=== PATIENT | female | born 1970 | race Caucasian/White ===

== ENCOUNTER 2023-06-26 21:29 | Outpatient (REF) | payer BC, SELFPAY ==
[2023-06-30 05:07] LABS: Age Gdln ACOG Testing Note (.); HPV Aptima Negative (Negative); IGP, Aptima HPV, rfx 16/18,45 Note (.)
== END 2023-06-26 21:30 | disposition home or self-care (01) ==
LOC: LAB 21:29
PROVIDERS: PCP Family Medicine; Visit Provider Obstetrics & Gynecology
DX: Z01.419 Encounter for gynecological examination (general) (routine) without abnormal findings (principal)
CPT/HCPCS: 87624; G0145

== ENCOUNTER 2023-06-29 14:53 | Outpatient (OUT) | payer BC, SELFPAY ==
--- OUTSIDE RECORDS SUMMARY | 2023-06-29 14:56 | XMS_ITS | CCD ---
Author Name Unknown Address [address] [place] [address] [id number] [place] [address] Organization [facility] Care Team Providers Care Adzing And Boring Machine Helper Name Role Phone PIPPA ., DR WILSON Admitting Unavailabl e KARASIK ., DR WILSON Consulting Unavailabl e KARASIK ., DR WILSON Attending Unavailabl e LEAHY, DR GABRIEL Pickard Primary Care Unavailable WEST, DR TYLOR Whitney Consulting Unavailable LEAHY, DR GABRIEL Pickard Consulting Unavailable LEAHY, DR GABRIEL Pickard Attending Unavailable LEAHY, DR GABRIEL Pickard Admitting Unavailable LEAHY, DR GABRIEL Pickard Primary Care Unavailable KARASIK ., DR WILSON Admitting Unavailabl e KARASIK ., DR WILSON Consulting Unavailabl e KARASIK ., DR WILSON Attending Unavailabl e LEAHY, DR GABRIEL Pickard Primary Care Unavailable TRISTON WALKER Attending Unavailable Problems Active Problems Problem Classification Problem Date Documented Da te Episodic/Chronic Other screening for suspected conditions (not mental disorders or infectious disease) (8 sources) Encounter for screening mammogram for malignant neoplasm of breast; Translations: [Encounter for screening for malignant neoplasm of cervix] Onset: 06-23-2022 Episodic Residual codes; unclassified (1 source) Family history of malignant neoplasm of breast; Translations: [FAMILY HX MALIG NEOPLASM OF BREAST] Onset: 11-16-2022 Episodic Residual codes; unclassified (1 source) Family history of malignant neoplasm of digestive organs; Translations: [FAM HX MALIG NEOPLASM DIGESTIV ORGN] Onset: 11-16-2022 Episodic Past or Other Problems Problem Classification Problem Date Documented Date Episodic/Chronic Immunizations and screening for infectious disease (1 source) Encounter for screening for human papillomavirus (HPV); Translations: [ENC SCREENING HUMAN PAPILLOMAVIRUS] Onset: 06-26-2022 Episodic Results Test Name Value Interpretation Reference Range Facility [facility] MAMM SCREEN 3D CHRISTAL CADon 11-11-2022 MG MAMM SCREEN 3D CHRISTAL CAD Patient: ANATOLIY STUART Exam Date: 11/11/2022 : 1970 Gender:F Ordering : DR TRISTON WALKER . Admission #: [id number] Family : Order #: [id number] CLICK HERE TO VIEW EXAM RADIOLOGY REPORT PROCEDURE: MAMMOGRAM SCREENING 3D BILATERAL CAD COMPARISON: MG MAMM SCREEN 3D CHRISTAL CAD, 10/28/2020. MG MAMM SCREEN 3D CHRISTAL CAD, 11/10/2021. INDICATIONS: Screening mammography Calculator Name NCI Breast Cancer Risk Assessment Tool 5 Year Breast Cancer Risk 2.00% Lifetime Breast Cancer Risk 16.60% Personal Breast Cancer No Personal Ovarian Cancer No Treatments None Family Cancers Grandmother-paternal with breast cancer at age 70; Grandmother-maternal with colon/stomach cancer at age 60; Mother with breast cancer at age 68. LOCATION: [facility] BREAST COMPOSITION: Extremely dense, which lowers the sensitivity of mammography. FINDINGS: DIAGNOSTIC CATEGORY 2--BENIGN FINDING. NO CHANGE FROM COMPARISON. Scattered benign-appearing nodules are present. Scattered benign-appearing calcifications are present. Scattered benign-appearing lymph nodes are present. RIGHT BREAST: No significant suspicious finding. LEFT BREAST: No significant suspicious finding. RECOMMENDATIONS: ROUTINE MAMMOGRAM AND CLINICAL EVALUATION IN 12 MONTHS. PLEASE NOTE: A NORMAL MAMMOGRAM DOES NOT EXCLUDE THE POSSIBILITY OF BREAST CANCER. A CLINICALLY SUSPICIOUS PALPABLE LUMP SHOULD BE BIOPSIED. Dictated by: Tylor Andrade MD on 11/11/2022 at 13:39 Approved by: Tylor Andrade MD on 11/11/2022 at 13:58 Normal [facility] CBC AUTO DIFFon 11-01-2022 BASO # 0.1 103/ul Normal 0.0-0.1 [facility] Comment on above: Performed By: #### C BC #### [facility] [address] [address] [address] Edelmira Hirsch Basophils/100 WBC (Bld) 1.0 % Normal 0.2-2.0 [facility] Comment on above: Performed By: #### C BC #### [facility] [address] [address] [address] Edelmira Hirsch EO # 1.0 103/ul Critically high 0.0-0.7 [facility] Comment on above: Performed By: #### C BC #### [facility] [address] [place] [address] Dr. Edelmira Hirsch Eosinophils/100 WBC (Bld) 13.9 % Critically high 0.9-7.0 [facility] Comment on above: Performed By: #### C BC #### [facility] [address] [place] [address] Dr. Edelmira Hirsch Erythrocyte distribution width (RBC) [Ratio] 12.2 % Normal 11.0-15.0 [facility] Comment on above: Performed By: #### C BC #### [facility] [address] [place] [address] Dr. Edelmira Hirsch Hematocrit (Bld) [Volume fraction] 40.5 % Normal 36.0-48.0 [facility] Comment on above: Performed By: #### C BC #### [facility] [address] [place] [address] Dr. Edelmira Hirsch Hemoglobin (Bld) [Mass/Vol] 13.8 g/dL Normal 12.0-16.0 [facility] Comment on above: Performed By: #### C BC #### [facility] [address] [place] [address] Dr. Edelmira Hirsch IG # 0.02 10e3/ul Normal 0.00-0.03 [facility] Comment on above: Performed By: #### C BC #### [facility] [address] [place] [address] Dr. Edelmira Hirsch IG % 0.3 % Normal 0.0-0.5 [facility] Comment on above: Performed By: #### C BC #### [facility] [address] [place] [address] Dr. Edelmira Hirsch LYMPH # 1.8 103/ul Normal 1.2-3.8 [facility] Comment on above: Performed By: #### C BC #### [facility] [address] [place] [address] Dr. Edelmira Hirsch Lymphocytes/100 WBC (Bld) 24.6 % Normal 20.5-60.0 [facility] Comment on above: Performed By: #### C BC #### [facility] [address] [place] [address] Dr. Edelmira Hirsch MANUAL DIFF REQ NO Normal [facility] Comment on above: Performed By: #### C BC #### [facility] [address] [place] [address] Dr. Edelmira Hirsch MCH (RBC) [Entitic mass] 32.2 pg Normal 26.7-34.0 [facility] Comment on above: Performed By: #### C BC #### [facility] [address] [place] [address] Dr. Edelmira Hirsch MCHC (RBC) [Mass/Vol] 34.1 g/dL Normal 29.9-35.2 [facility] Comment on above: Performed By: #### C BC #### [facility] [address] [place] [address] Dr. Edelmira Hirsch MCV (RBC) [Entitic vol] 94.6 fL Normal 81.0-99.0 [facility] Comment on above: Performed By: #### C BC #### [facility] [address] [place] [address] Dr. Edelmira Hirsch MONO # 0.5 103/ul Normal 0.3-0.8 [facility] Comment on above: Performed By: #### C BC #### [facility] [address] [place] [address] Dr. Edelmira Hirsch Monocytes/100 WBC (Bld) 6.5 % Normal 1.7-12.0 [facility] Comment on above: Performed By: #### C BC #### [facility] [address] [place] [address] Dr. Edelmira Hirsch NEUT # 3.8 103/ul Normal 1.4-6.5 [facility] Comment on above: Performed By: #### C BC #### [facility] [address] [place] [address] Dr. Edelmira Hirsch Neutrophils/100 WBC (Bld) 53.7 % Normal 43.0-75.0 [facility] Comment on above: Performed By: #### C BC #### [facility] [address] [address] [address] Edelmira Hirsch Platelet mean volume (Bld) [Entitic vol] 10.0 fL Normal 9.5-13.5 [facility] Comment on above: Performed By: #### C BC #### [facility] [address] [address] [address] Edelmira Hirsch PLT 276 103/ul Normal 150-450 [facility] Comment on above: Performed By: #### C BC #### [facility] [address] [address] [address] Edelmira Hirsch RBC 4.28 106/ul Normal 4.20-5.40 [facility] Comment on above: Performed By: #### C BC #### [facility] [address] [place] [address] Dr. Edelmira Hirsch WBC 7.1 103/ul Normal 4.0-11.0 [facility] Comment on above: Performed By: #### C BC #### [facility] [address] [place] [address] Dr. Edelmira Hirsch GLYCOHEMOGLOBIN A1Con 2022 ADA RECOMMENDATION SEE BELOW Normal [facility] Comment on above: Result Comment: ADA RECOMMENDED LIMIT 4.0 - 6.0 ADA THERAPEUTIC TARGET < 7.0 ACTION SUGGESTED > 7.0 Performed By: #### A 1C #### [facility] [address] [place] [address] Dr. Edelmira Hirsch Glucose [Mass/Vol] 100 mg/dL Normal [facility] Comment on above: Performed By: #### A 1C #### [facility] [address] [place] [address] Dr. Edelmira Hirsch HbA1c (Bld) [Mass fraction] 5.1 % Normal 4.5-6.2 [facility] Comment on above: Performed By: #### A 1C #### [facility] [address] [place] [address] Dr. Edelmira Hirsch LIPID PROFILEon 11-01-2022 CHOL-HDL RATIO NORM SEE BELOW Normal [facility] Comment on above: Result Comment: 3.3 - 4.4 LOW RISK 4.4 - 7.1 AVERAGE RISK 7.1 - 11.0 MODERATE RISK >11.0 HIGH RISK Performed By: #### L IPID, CMP, TSH #### [facility] [address] [address] [address] Edelmira Hirsch Cholesterol [Mass/Vol] 164 mg/dL Normal <=200 [facility] Comment on above: Performed By: #### L IPID, CMP, TSH #### [facility] [address] [address] [address] Edelmira Hirsch Cholesterol in HDL [Mass/Vol] 80 mg/dL Critically high 40-60 [facility] Comment on above: Performed By: #### L IPID, CMP, TSH #### [facility] [address] [address] [address] Edelmira Hirsch Cholesterol in LDL [Mass/Vol] 76.8 mg/dL Normal [facility] Comment on above: Performed By: #### L IPID, CMP, TSH #### [facility] [address] [address] [address] Edelmira Hirsch Cholesterol.total/Ch olesterol in HDL [Mass ratio] 2.1 {ratio} Normal [facility] Comment on above: Performed By: #### L IPID, CMP, TSH #### [facility] [address] [place] [address] Dr. Edelmira Hirsch HDL NORMAL > or = 60 mg/dl - LO W CARDIOVASCULAR RISK <40 mg/dl - HIGH CARDIOVASCULAR RISK Normal [facility] Comment on above: Performed By: #### L IPID, CMP, TSH #### [facility] [address] [address] [address] Edelmira Hirsch LDL CALC NORMAL SEE BELOW Normal [facility] Comment on above: Result Comment: <100 mg/dl OPTIMAL 100 - 129 mg/dl NEAR OR ABOVE OPTIMAL 130 - 159 mg/dl BORDERLINE HIGH 160 - 189 mg/dl HIGH >190 mg/dl VERY HIGH Performed By: #### L IPID, CMP, TSH #### [facility] [address] [address] [address] Edelmira Hirsch Triglyceride [Mass/Vol] 36 mg/dL Normal <=150 [facility] Comment on above: Performed By: #### L IPID, CMP, TSH #### [facility] [address] [address] [address] Edelmira Hirsch VLDL CALC 7.2 mg/dL Normal [facility] Comment on above: Performed By: #### L IPID, CMP, TSH #### [facility] [address] [address] [address] Edelmira Hirsch PROF 14(COMP METB)on 023 Albumin [Mass/Vol] 3.5 g/dL Normal 3.4-5.0 [facility] Comment on above: Performed By: #### L IPID, CMP, TSH #### [facility] [address] [place] [address] Dr. Edelmira Hirsch Albumin/Globulin [Mass ratio] 0.9 {ratio} Normal [facility] Comment on above: Performed By: #### L IPID, CMP, TSH #### [facility] [address] [place] [address] Dr. Edelmira Hirsch ALP [Catalytic activity/Vol] 51 U/L Normal 46-116 [facility] Comment on above: Performed By: #### L IPID, CMP, TSH #### [facility] [address] [place] [address] Dr. Edelmira Hirsch ALT [Catalytic activity/Vol] 23 U/L Normal 14-59 [facility] Comment on above: Performed By: #### L IPID, CMP, TSH #### [facility] [address] [address] [address] Edelmira Hirsch Anion gap [Moles/Vol] 11.2 mmol/L Normal [facility] Comment on above: Performed By: #### L IPID, CMP, TSH #### [facility] [address] [place] [address] Dr. Edelmira Hirsch AST [Catalytic activity/Vol] 18 U/L Normal 15-37 [facility] Comment on above: Performed By: #### L IPID, CMP, TSH #### [facility] [address] [place] [address] Dr. Edelmira Hirsch Bilirubin [Mass/Vol] 0.9 mg/dL Normal 0.2-1.0 [facility] Comment on above: Performed By: #### L IPID, CMP, TSH #### [facility] [address] [place] [address] Dr. Edelmira Hirsch Calcium [Mass/Vol] 9.4 mg/dL Normal 8.5-10.1 [facility] Comment on above: Performed By: #### L IPID, CMP, TSH #### [facility] [address] [address] [address] Edelmira Hirsch Chloride [Moles/Vol] 104 mmol/L Normal 98-107 [facility] Comment on above: Performed By: #### L IPID, CMP, TSH #### [facility] [address] [place] [address] Dr. Edelmira Hirsch CO2 [Moles/Vol] 29.5 mmol/L Normal 21.0-32.0 [facility] Comment on above: Performed By: #### L IPID, CMP, TSH #### [facility] [address] [place] [address] Dr. Edelmira Hirsch Creatinine [Mass/Vol] 0.86 mg/dL Normal 0.55-1.02 [facility] Comment on above: Performed By: #### L IPID, CMP, TSH #### [facility] [address] [place] [address] Dr. Edelmira Hirsch EGFR-AF KOSOVAN >60 Normal >=60 [facility] Comment on above: Performed By: #### L IPID, CMP, TSH #### [facility] [address] [place] [address] Dr. Edelmira Hirsch EGFR-NON AF KOSOVAN >60 Normal >=60 [facility] Comment on above: Performed By: #### L IPID, CMP, TSH #### [facility] [address] [place] [address] Dr. Edelmira Hirsch Globulin (S) [Mass/Vol] 3.7 g/dL Normal [facility] Comment on above: Performed By: #### L IPID, CMP, TSH #### [facility] [address] [address] [address] Edelmira Hirsch Glucose [Mass/Vol] 97 mg/dL Normal 74-106 [facility] Comment on above: Performed By: #### L IPID, CMP, TSH #### [facility] [address] [address] [address] Edelmira Hirsch Potassium [Moles/Vol] 4.7 mmol/L Normal 3.5-5.1 [facility] Comment on above: Performed By: #### L IPID, CMP, TSH #### [facility] [address] [address] [address] Edelmira Hirsch Protein [Mass/Vol] 7.2 g/dL Normal 6.4-8.2 [facility] Comment on above: Performed By: #### L IPID, CMP, TSH #### [facility] [address] [address] [address] Edelmira Hirsch Sodium [Moles/Vol] 140 mmol/L Normal 136-145 [facility] Comment on above: Performed By: #### L IPID, CMP, TSH #### [facility] [address] [address] [address] Edelmira Hirsch Urea nitrogen [Mass/Vol] 14.0 mg/dL Normal 7.0-18.0 [facility] Comment on above: Performed By: #### L IPID, CMP, TSH #### [facility] [address] [address] [address] Edelmira Hirsch Urea nitrogen/Creatinine [Mass ratio] 16.3 mg/mg Normal [facility] Comment on above: Performed By: #### L IPID, CMP, TSH #### [facility] [address] [address] [address] Edelmira Hirsch TSHon 11-01-2022 TSH 2.540 uIU/mL Normal 0.358-3.740 [facility] Comment on above: Performed By: #### L IPID, CMP, TSH #### [facility] [address] [address] [address] Edelmira Hirsch PAP ACOG PANEL 2: 30 to 65on 06-27-2022 . . Normal [facility] Comment on above: Result Comment: Perf ormed at: WB Performed By: #### 4 [id number] #### [facility] [address] [place] [address] Dr. Edelmira Hirsch Age Gdln ACOG Testing 30-65 [facility] Comment on above: Performed By: #### 4 [id number] #### [facility] [address] [address] [address] Edelmira Hirsch DIAGNOSIS: Comment Normal [facility] Comment on above: Result Comment: NEGA TIVE FOR INTRAEPITHELIAL LESION OR MALIGNANCY. Performed at: WB Performed By: #### 4 [id number] #### [facility] [address] [place] [address] Dr. Edelmira Hirsch HPV Aptima Negative Normal Negative [facility] Comment on above: Result Comment: This nucleic acid amplification test detects fourteen high-risk HPV types (16,18,31,33,35,39,45,51,52,56,58,59,66,68) without differentiation. Performed at: =G Performed By: #### 4 [id number] #### [facility] [address] [place] [address] Dr. Edelmira Hirsch HPV Genotype Reflex Comment Normal [facility] Comment on above: Result Comment: Crit eria not met, HPV Genotype not performed. Performed at: WB Performed By: #### 4 [id number] #### [facility] [address] [place] [address] Dr. Edelmira Hirsch Methodology: Comment [facility] Comment on above: Result Comment: This liquid based ThinPrep(R) pap test was screened with the use of an image guided system. Performed at: WB Performed By: #### 4 [id number] #### [facility] [address] [place] [address] Dr. Edelmira Hirsch Note: Comment [facility] Comment on above: Result Comment: The Pap smear is a screening test designed to aid in the detection of premalignant and malignant conditions of the uterine cervix. It is not a diagnostic procedure and should not be used as the sole means of detecting cervical cancer. Both false-positive and false-negative reports do occur. . Performed at: WB Performed By: #### 4 [id number] #### [facility] [address] [place] [address] Dr. Edelmira Hirsch Performed by: Comment Normal [facility] Comment on above: Result Comment: Aury Andrade, Infectious Waste Technician (ASCP) Performed at: WB Performed By: #### 4 [id number] #### [facility] [address] [place] [address] Dr. Edelmira Hirsch Specimen adequacy: Comment Normal [facility] Comment on above: Result Comment: Sati sfactory for evaluation. Endocervical and/or squamous metaplastic cells (endocervical component) are present. Performed at: WB Performed By: #### 4 [id number] #### [facility] [address] [place] [address] Dr. Edelmira Hirsch Nicotine and Metabolite, Harlan nt LCon 04-04-2021 Cotinine LC <1.0 Invalid Interpretation [facility] Comment on above: Result Comment: This test was developed and its performance characteristics determined by [employer]. It has not been cleared or approved by the Food and Drug Administration. Cotinine levels greater than 20.0 are consistent with the use of tobacco or tobacco cessation products. Performed At: [address] [id number] Speedy Rodriguez MD Ph:[phone] Performed By: #### 1 [id number], [id number], [id number], [id number], [id number], [id number] #### [facility] (DEFAULT) [address] [place] [id number] Nicotine LC <1.0 Invalid Interpretation [facility] Comment on above: Result Comment: This test was developed and its performance characteristics determined by [facility]. It has not been cleared or approved by the Food and Drug Administration. Nicotine levels greater than 2.0 are consistent with the use of tobacco or tobacco cessation products. Performed By: #### 1 [id number], [id number], [id number], [id number], [id number], [id number] #### [facility] (DEFAULT) [address] [place] [address] .Auto Diff 1on 03-30-2021 Auto [place] % 7 % Normal 06-30 [facility] Comment on above: Performed By: #### 1 [id number], [id number], [id number], [id number], [id number], [id number] #### [facility] ([facility]) [address] [place] [address] Baso Abs# 0.0 x10 Normal 0.0-0.2 [facility] Comment on above: Performed By: #### 1 [id number], [id number], [id number], [id number], [id number], [id number] #### [facility] (DEFAULT) [address] [place] [address] Basophils/100 WBC (Bld) 0.4 % Normal 0.2-2.0 [facility] Comment on above: Performed By: #### 1 [id number], [id number], [id number], [id number], [id number], [id number] #### [facility] ([facility]) [address] [place] [address] Eos Abs# 1.0 x10 High 0.0-0.4 [facility] Comment on above: Performed By: #### 1 [id number], [id number], [id number], [id number], [id number], [id number] #### [facility] ([facility]) [address] [place] [address] Eosinophils/100 WBC (Bld) 13.5 % High 0.9-4.0 [facility] Comment on above: Performed By: #### 1 [id number], [id number], [id number], [id number], [id number], [id number] #### [facility] ([facility]) [address] [place] [address] Lymph Abs# 2.1 x10 Normal 1.3-2.9 [facility] Comment on above: Performed By: #### 1 [id number], [id number], [id number], [id number], [id number], [id number] #### [facility] ([facility]) [address] [place] [address] Lymphocytes/100 WBC (Bld) 29 % Normal 14-48 [facility] Comment on above: Performed By: #### 1 [id number], [id number], [id number], [id number], [id number], [id number] #### [facility] ([facility]) [address] [place] [address] [place] Abs# 0.5 x10 Normal 0.0-0.8 [facility] Comment on above: Performed By: #### 1 [id number], [id number], [id number], [id number], [id number], [id number] #### [facility] ([facility]) [address] [place] [address] Neut Abs# 3.5 x10 Normal 1.5-9.2 [facility] Comment on above: Performed By: #### 1 [id number], [id number], [id number], [id number], [id number], [id number] #### [facility] ([facility]) [address] [place] [address] Neutrophils/100 WBC (Bld) 50 % Normal 44-88 [facility] Comment on above: Performed By: #### 1 [id number], [id number], [id number], [id number], [id number], [id number] #### [facility] ([facility]) [address] [place] [address] CBC w/ Auto Diffon Erythrocyte distribution width (RBC) [Ratio] 13.2 % Normal 11.5-15.0 [facility] Comment on above: Performed By: #### 1 [id number], [id number], [id number], [id number], [id number], [id number] #### [facility] ([facility]) [address] [place] [address] Hematocrit (Bld) [Volume fraction] 38.4 % Normal 33.7-40.4 [facility] Comment on above: Performed By: #### 1 [id number], [id number], 4288506398, 6350767828, 68742461, 0115409 #### [facility] (DEFAULT) [address] [place] [address] Hemoglobin (Bld) [Mass/Vol] 12.4 g/dL Normal 11.3-15.9 [facility] Comment on above: Performed By: #### 1 1271897, 5124268006, 3894531966, 3587982477, 36372797, 8414802 #### [facility] (DEFAULT) [address] [place] [address] Instr WBC 7.1 x10 Invalid Interpretation Code [facility] Comment on above: Performed By: #### 1 6363521, 7356904423, 1718865026, 4100905719, 81569241, 2750878 #### [facility] (DEFAULT) [address] [place] [address] Man Diff? Auto Normal [facility] Comment on above: Performed By: #### 1 6936446, 7353984801, 4936184171, 7148884231, 32637124, 6696779 #### [facility] (DEFAULT) [address] [place] [address] 79015 MCH (RBC) [Entitic mass] 30 pg Normal 24-34 [facility] Comment on above: Performed By: #### 1 0562656, 1413058493, 0081598595, 4902216377, 94858490, 5411086 #### [facility] (DEFAULT) [address] [place] [address] 13516 MCHC (RBC) [Mass/Vol] 32 g/dL Normal 26-37 [facility] Comment on above: Performed By: #### 1 9895826, 7847469810, 3958826661, 2457079956, 48869684, 4814447 #### [facility] (DEFAULT) [address] [place] [address] 79256 MCV (RBC) [Entitic vol] 94 fL Normal 81-100 [facility] Comment on above: Performed By: #### 1 2224877, 2919583448, 2380052257, 5431356157, 76945792, 2927704 #### [facility] (DEFAULT) [address] [place] [address] 59605 Platelet 265 x10 Normal 138-427 [facility] Comment on above: Performed By: #### 1 1486481, 4168750228, 7616408829, 3071973469, 63185402, 4959657 #### [facility] (DEFAULT) [address] [place] [address] Platelet mean volume (Bld) [Entitic vol] 10.3 fL High 6.3-10.2 [facility] Comment on above: Performed By: #### 1 1251751, 7697240676, 1432080647, 9977822550, 52191738, 1691353 #### [facility] (DEFAULT) [address] [place] [address] RBC 4.10 x10 Normal 3.70-5.30 [facility] Comment on above: Performed By: #### 1 1659363, 9467534749, 6087654806, 5646434370, 73118618, 6251203 #### [facility] (DEFAULT) [address] [place] [address] WBC 7.1 x10 Normal 3.5-10.5 [facility] Comment on above: Performed By: #### 1 0074555, 5081093830, 1530310423, 6909422482, 90827246, 2658036 #### [facility] (DEFAULT) [address] [place] [address] Standardon 03-30-2021 eGFR Non AA >60 Invalid Interpretation Code [facility] Comment on above: Performed By: #### 1 0409950, 7070203368, 3781529386, 5811502596, 90880629, 7309070 #### [facility] (DEFAULT) [address] [place] [address] eGFR AA >60 Invalid Interpretation Code [facility] Comment on above: Result Comment: Conformal Pad Former roddy Kidney disease could be indicated at eGFRs of less than 60 ml/min/1.73m2. Kidney Failure is indicated at less than 15 ml/min/1.73m2 Performed By: #### 1 1540464, 0342123958, 4280715991, 5752057499, 83903029, 5516500 #### [facility] (DEFAULT) [address] [place] [address] Albumin [Mass/Vol] 3.6 g/dL Normal 3.5-5.0 [facility] Comment on above: Performed By: #### 1 1501280, 0230243029, 1417505768, 4656451870, 77843613, 9671602 #### [facility] (DEFAULT) [address] [place] [address] Albumin/Globulin [Mass ratio] 1.1 {ratio} Low 1.4-2.6 [facility] Comment on above: Performed By: #### 1 8052707, 0261813846, 7955340960, 5833051687, 42826501, 2209324 #### [facility] (DEFAULT) [address] [place] [address] Alk Phos 61 IU/L Normal 32-91 [facility] Comment on above: Performed By: #### 1 2259953, 7765225118, 2766696065, 4480697732, 79033915, 9710392 #### [facility] (DEFAULT) [address] [place] [address] ALT [Catalytic activity/Vol] 14.0 U/L Normal 14.0-54.0 [facility] Comment on above: Performed By: #### 1 1074128, 7362280742, 7189856452, 2789797749, 80557995, 2353088 #### [facility] (DEFAULT) [address] [place] [address] 59852 Anion gap [Moles/Vol] 9.0 mmol/L Normal 5.0-19.0 [facility] Comment on above: Performed By: #### 1 3856866, 6910871079, 1085753189, 1385880675, 67900253, 9821650 #### [facility] (DEFAULT) [address] [place] [address] AST [Catalytic activity/Vol] 21 U/L Normal 15-41 [facility] Comment on above: Performed By: #### 1 3035041, 2717568575, 0229906982, 5880210404, 79132398, 1937996 #### [facility] (DEFAULT) [address] [place] [address] 37213 Bili Total 0.9 mg/dL Normal 0.3-1.2 [facility] Comment on above: Performed By: #### 1 3903694, 1661455170, 3078085810, 6482809614, 65536482, 6445919 #### [facility] (DEFAULT) [address] [place] [address] 52976 Calcium [Mass/Vol] 8.6 mg/dL Low 8.9-10.3 [facility] Comment on above: Performed By: #### 1 3427148, 3263438153, 4461203058, 2197915411, 62780421, 9326705 #### [facility] (DEFAULT) [address] [place] [address] 99838 Chloride [Moles/Vol] 103 mmol/L Normal 101-111 [facility] Comment on above: Performed By: #### 1 3150509, 0773185248, 5778607906, 7370627078, 42701351, 6247197 #### [facility] (DEFAULT) [address] [place] [address] 24366 CO2 [Moles/Vol] 27 mmol/L Normal 21-32 [facility] Comment on above: Performed By: #### 1 6620633, 4623474245, 2168174552, 0377823690, 66538770, 4194547 #### [facility] (DEFAULT) [address] [place] [address] 15155 Creatinine [Mass/Vol] 0.81 mg/dL Normal 0.60-1.30 [facility] Comment on above: Performed By: #### 1 2660710, 0534939178, 0693108308, 1347744888, 25720914, 6111638 #### [facility] (DEFAULT) [address] [place] [address] 86345 Globulin (S) [Mass/Vol] 3.4 g/dL Normal 1.5-4.3 [facility] Comment on above: Performed By: #### 1 3444217, 9870107168, 4038095288, 3780723696, 62813952, 7668660 #### [facility] (DEFAULT) [address] [place] [address] 31994 Glucose [Mass/Vol] 89.0 mg/dL Normal 74.0-118.0 [facility] Comment on above: Performed By: #### 1 0992811, 8318185892, 9246544589, 0638368180, 79284998, 4398688 #### [facility] (DEFAULT) [address] [place] [address] 93200 Osmolality 269 mOsm/L Invalid Interpretation Code [facility] Comment on above: Performed By: #### 1 1825800, 4943222820, 9879620328, 8228439786, 07817075, 6848420 #### [facility] (DEFAULT) [address] [place] [address] 26786 Potassium [Moles/Vol] 4.0 mmol/L Normal 3.6-5.1 [facility] Comment on above: Performed By: #### 1 9418236, 8171298586, 5933243155, 1549384283, 62875488, 0838797 #### [facility] (DEFAULT) [address] [place] [address] 11033 Protein [Mass/Vol] 7.0 g/dL Normal 6.5-8.1 [facility] Comment on above: Performed By: #### 1 9069962, 2972501385, 8214639828, 6507163865, 34469364, 2149260 #### [facility] (DEFAULT) [address] [place] [address] 83595 Sodium [Moles/Vol] 135.0 mmol/L Low 136.0-144.0 [facility] Comment on above: Performed By: #### 1 3494361, 8029620327, 9042544305, 3008133734, 78430649, 7693048 #### [facility] (DEFAULT) [address] [place] [address] Urea nitrogen [Mass/Vol] 12 mg/dL Normal 8-26 [facility] Comment on above: Performed By: #### 1 0706454, 6170142666, 8729208566, 0525137136, 92783626, 3002105 #### [facility] (DEFAULT) [address] [place] [address] Urea nitrogen/Creatinine [Mass ratio] 15.0 mg/mg Normal 4.6-16.2 [facility] Comment on above: Performed By: #### 1 9646287, 9261546173, 5645218308, 7741589774, 19142200, 6737933 #### [facility] (DEFAULT) [address] [place] [address] HgbA1c Standardon 03-30-2021 .Hb 14.4 Invalid Interpretation Code [facility] Comment on above: Performed By: #### 1 8086854, 6892660747, 5855516092, 8932819312, 62916928, 1755217 #### [facility] (DEFAULT) [address] [place] [address] .Hgb A1c 0.48 g/dL Invalid Interpretation Code [facility] Comment on above: Performed By: #### 1 1807043, 6570792686, 8307055734, 4152316142, 53497356, 3676112 #### [facility] (DEFAULT) [address] [place] [address] Glucose [Mass/Vol] 103 mg/dL Invalid Interpretation Code [facility] Comment on above: Performed By: #### 1 0643625, 1405618709, 7383591616, 0153807337, 29515953, 1834904 #### [facility] (DEFAULT) [address] [place] [address] HbA1c (Bld) [Mass fraction] 5.2 % Normal 4.6-6.2 [facility] Comment on above: Performed By: #### 1 3558407, 9150017754, 1961485295, 7700382078, 19725834, 7234398 #### [facility] (DEFAULT) [address] [place] [address] 50324 Lipid Panel Standardon 03-30 Cholesterol [Mass/Vol] 171.0 mg/dL Normal 66.0-200.0 [facility] Comment on above: Result Comment: Rosalind rable - Less than 200 mg/dL Borderline high risk - 200-239 mg/dL High risk - 240 mg/dL and over. Performed By: #### 1 4518933, 2107375441, 4179367019, 4642380333, 59205113, 7433578 #### [facility] (DEFAULT) [address] [place] [address] 66277 Cholesterol in HDL [Mass/Vol] 64 mg/dL Normal 40-71 [facility] Comment on above: Result Comment: High risk - <40 mg/dL. Performed By: #### 1 8235593, 8914515245, 1914168014, 8445897648, 25395303, 6887380 #### [facility] (DEFAULT) [address] [place] [address] 11455 Cholesterol in LDL [Mass/Vol] 93 mg/dL Normal 1-100 [facility] Comment on above: Result Comment: Opti mal - Less than 100 mg/dL Borderline high risk - 130-159 mg/dL High risk - 160-189 mg/dL. Performed By: #### 1 0315935, 5443215446, 0595423503, 8568705744, 78716533, 7425021 #### [facility] (DEFAULT) [address] [place] [address] 82623 Cholesterol.total/Ch olesterol in HDL [Mass ratio] 2.7 {ratio} Normal 0.0-4.5 [facility] Comment on above: Performed By: #### 1 3841709, 7905959919, 9868068338, 3382068691, 86539441, 3480755 #### [facility] (DEFAULT) [address] [place] [address] 10224 Triglyceride [Mass/Vol] 73.0 mg/dL Normal 0.0-150.0 [facility] Comment on above: Performed By: #### 1 9209909, 6789518101, 8822219663, 2067009715, 33437218, 5026073 #### [facility] (DEFAULT) [address] [place] [address] VLDL. 15 mg/dL Normal 5-40 [facility] Comment on above: Performed By: #### 1 7249338, 2117701715, 4641774832, 1490401587, 09322784, 7592207 #### [facility] (DEFAULT) [address] [place] [address] 28484 Nicotine and Metabolite, Harlan nt LCon 04-20-2020 Cotinine LC <1.0 Invalid Interpretation Code [facility] Comment on above: Result Comment: This test was developed and its performance characteristics determined by [employer]. It has not been cleared or approved by the Food and Drug Administration. Cotinine levels greater than 20.0 are consistent with the use of tobacco or tobacco cessation products. Performed At: [address] [id number] Speedy Rodriguez MD Ph:[phone] Performed By: #### 1 4300729, 6152286002, 0445386990, 0487882447, 21982227, 6050976 #### [facility] (DEFAULT) [address] [place] [address] Nicotine LC <1.0 Invalid Interpretation Code [facility] Comment on above: Result Comment: This test was developed and its performance characteristics determined by [facility]. It has not been cleared or approved by the Food and Drug Administration. Nicotine levels greater than 2.0 are consistent with the use of tobacco or tobacco cessation products. Performed By: #### 1 1230520, 3894954881, 8404867921, 0212304763, 18806627, 4898879 #### [facility] (DEFAULT) [address] [place] [address] 42113 .Auto Diff 104-10-2020 Auto [place] % 8 % Normal 1-12 [facility] Comment on above: Performed By: #### 7 825043, 80423562, 2669445637, 3033672274, 5728584420, 32219104 #### [facility] (DEFAULT) [address] [place] [address] 49013 Baso Abs# 0.0 x10 Normal 0.0-0.2 [facility] Comment on above: Performed By: #### 7 447301, 68791909, 6086029982, 4698621810, 3739999172, 59629331 #### [facility] (DEFAULT) [address] [place] [address] 73326 Basophils/100 WBC (Bld) 0.6 % Normal 0.2-2.0 [facility] Comment on above: Performed By: #### 7 443469, 78293508, 8038580473, 6755805792, 3890161541, 97307981 #### [facility] (DEFAULT) [address] [place] [address] Eos Abs# 0.7 x10 High 0.0-0.4 [facility] Comment on above: Performed By: #### 7 450884, 56125389, 1113753409, 1138312476, 2349344321, 53831186 #### [facility] (DEFAULT) [address] [place] [address] 46795 Eosinophils/100 WBC (Bld) 13.1 % High 0.9-4.0 [facility] Comment on above: Performed By: #### 7 481597, 50423752, 4648689505, 2102254733, 3908329022, 81687871 #### [facility] (DEFAULT) [address] [place] [address] 07523 Lymph Abs# 1.8 x10 Normal 1.3-2.9 [facility] Comment on above: Performed By: #### 7 008358, 84856051, 6683941034, 0782035406, 8300017180, 94062881 #### [facility] (DEFAULT) [address] [place] [address] 72856 Lymphocytes/100 WBC (Bld) 33 % Normal 14-48 [facility] Comment on above: Performed By: #### 7 615018, 31019036, 4339309379, 2342529721, 1539313003, 56956438 #### [facility] (DEFAULT) [address] [place] [address] [place] Abs# 0.4 x10 Normal 0.0-0.8 [facility] Comment on above: Performed By: #### 7 824493, 17769383, 5563209759, 2063605902, 7111853016, 35371264 #### [facility] (DEFAULT) [address] [place] [address] Neut Abs# 2.4 x10 Normal 1.5-9.2 [facility] Comment on above: Performed By: #### 7 372242, 66172280, 3533964652, 3880153341, 3935323924, 12972105 #### [facility] (DEFAULT) [address] [place] [address] Neutrophils/100 WBC (Bld) 45 % Normal 44-88 [facility] Comment on above: Performed By: #### 7 235189, 98281213, 7272532365, 2519945507, 8327162215, 69552567 #### [facility] (DEFAULT) [address] [place] [address] CBC w/ Auto Diffon 0 Erythrocyte distribution width (RBC) [Ratio] 13.4 % Normal 11.5-15.0 [facility] Comment on above: Performed By: #### 7 389657, 43777002, 2235391336, 8588705635, 7273154159, 63478158 #### [facility] (DEFAULT) [address] [place] [address] Hematocrit (Bld) [Volume fraction] 38.4 % Normal 33.7-40.4 [facility] Comment on above: Performed By: #### 7 758266, 06990511, 6463539335, 4022831888, 8775360354, 16105820 #### [facility] (DEFAULT) [address] [place] [address] Hemoglobin (Bld) [Mass/Vol] 12.6 g/dL Normal 11.3-15.9 [facility] Comment on above: Performed By: #### 7 725583, 14955780, 5711832185, 6556096252, 6084947872, 14646354 #### [facility] (DEFAULT) [address] [place] [address] 34309 Instr WBC 5.3 x10 Invalid Interpretation Code [facility] Comment on above: Performed By: #### 7 027247, 51171264, 7949867889, 3205692660, 0899640035, 73563623 #### [facility] (DEFAULT) [address] [place] [address] 03483 Man Diff? Auto Normal [facility] Comment on above: Performed By: #### 7 213084, 45816604, 9439548219, 5087096313, 9826762883, 91411000 #### [facility] (DEFAULT) [address] [place] [address] 95139 MCH (RBC) [Entitic mass] 29 pg Normal 24-34 [facility] Comment on above: Performed By: #### 7 072810, 31335320, 8267396322, 1415285657, 2303221363, 02404687 #### [facility] (DEFAULT) [address] [place] [address] 45648 MCHC (RBC) [Mass/Vol] 33 g/dL Normal 26-37 [facility] Comment on above: Performed By: #### 7 998053, 21611488, 4772795943, 2501568567, 9978883655, 77734477 #### [facility] (DEFAULT) [address] [place] [address] 69863 MCV (RBC) [Entitic vol] 89 fL Normal 81-100 [facility] Comment on above: Performed By: #### 7 644039, 12907784, 0488670198, 7060662161, 3366558482, 13072549 #### [facility] (DEFAULT) [address] [place] [address] 37821 Platelet 270 x10 Normal 138-427 [facility] Comment on above: Performed By: #### 7 879114, 15293528, 1865481735, 0571360596, 0822487843, 49307928 #### [facility] (DEFAULT) [address] [place] [address] Platelet mean volume (Bld) [Entitic vol] 10.1 fL Normal 6.3-10.2 [facility] Comment on above: Performed By: #### 7 964233, 79250052, 6332732457, 0414244772, 6768993351, 93333510 #### [facility] (DEFAULT) [address] [place] [address] RBC 4.32 x10 Normal 3.70-5.30 [facility] Comment on above: Performed By: #### 7 711729, 02465634, 2392768267, 1672209097, 1729694695, 56911578 #### [facility] (DEFAULT) [address] [place] [address] WBC 5.3 x10 Normal 3.5-10.5 [facility] Comment on above: Performed By: #### 7 758655, 32166560, 4734295941, 8761741281, 2635641829, 79222675 #### [facility] (DEFAULT) [address] [place] [address] Standard 04-10-2020 eGFR Non AA >60 Invalid Interpretation Code [facility] Comment on above: Performed By: #### 7 879500, 33657547, 1730816566, 1468873567, 1655016384, 63638393 #### [facility] (DEFAULT) [address] [place] [address] eGFR AA >60 Invalid Interpretation Code [facility] Comment on above: Result Comment: Conformal Pad Former roddy Kidney disease could be indicated at eGFRs of less than 60 ml/min/1.73m2. Kidney Failure is indicated at less than 15 ml/min/1.73m2 Performed By: #### 7 801119, 11253485, 6783919301, 8267491080, 2574780642, 66933077 #### [facility] (DEFAULT) [address] [place] [address] Albumin [Mass/Vol] 3.8 g/dL Normal 3.5-5.0 [facility] Comment on above: Performed By: #### 7 840504, 66892212, 0988707200, 0066411546, 1968006915, 88432967 #### [facility] (DEFAULT) [address] [place] [address] Albumin/Globulin [Mass ratio] 1.1 {ratio} Low 1.4-2.6 [facility] Comment on above: Performed By: #### 7 699913, 18749540, 4914655724, 4284001246, 4349209530, 59778559 #### [facility] (DEFAULT) [address] [place] [address] Alk Phos 40 IU/L Normal 32-91 [facility] Comment on above: Performed By: #### 7 223992, 07509113, 5704818898, 3846582256, 7401327397, 62245345 #### [facility] (DEFAULT) [address] [place] [address] ALT [Catalytic activity/Vol] 13.0 U/L Low 14.0-54.0 [facility] Comment on above: Performed By: #### 7 265358, 29490682, 2440488455, 1536611002, 4660373871, 77024616 #### [facility] (DEFAULT) [address] [place] [address] Anion gap [Moles/Vol] 11.0 mmol/L Normal 5.0-19.0 [facility] Comment on above: Performed By: #### 7 252376, 52692741, 7756700079, 0644265611, 6267952961, 86098877 #### [facility] (DEFAULT) [address] [place] [address] 39935 AST [Catalytic activity/Vol] 19 U/L Normal 15-41 [facility] Comment on above: Performed By: #### 7 247685, 66418896, 0648707321, 5081928567, 4943357448, 60353791 #### [facility] (DEFAULT) [address] [place] [address] Bili Total 1.1 mg/dL Normal 0.3-1.2 [facility] Comment on above: Performed By: #### 7 734657, 94602910, 1200774209, 3781417874, 7398968051, 07819390 #### [facility] (DEFAULT) [address] [place] [address] 34724 Calcium [Mass/Vol] 9.1 mg/dL Normal 8.9-10.3 [facility] Comment on above: Performed By: #### 7 122109, 85957211, 1587332077, 1888665709, 1422840968, 03540856 #### [facility] (DEFAULT) [address] [place] [address] 94840 Chloride [Moles/Vol] 107 mmol/L Normal 101-111 [facility] Comment on above: Performed By: #### 7 874126, 11990111, 2360523995, 7364981293, 9781556953, 95472521 #### [facility] (DEFAULT) [address] [place] [address] 56578 CO2 [Moles/Vol] 23 mmol/L Normal 21-32 [facility] Comment on above: Performed By: #### 7 479630, 27961201, 9501111546, 4275290430, 9355146986, 48851601 #### [facility] (DEFAULT) [address] [place] [address] 74679 Creatinine [Mass/Vol] 0.75 mg/dL Normal 0.60-1.30 [facility] Comment on above: Performed By: #### 7 419768, 33584987, 0922168107, 7078631539, 6477966419, 46231532 #### [facility] (DEFAULT) [address] [place] [address] 80981 Globulin (S) [Mass/Vol] 3.4 g/dL Normal 1.5-4.3 [facility] Comment on above: Performed By: #### 7 212604, 56917717, 0442607594, 5763216553, 0564875944, 83713609 #### [facility] (DEFAULT) [address] [place] [address] 81851 Glucose [Mass/Vol] 98.0 mg/dL Normal 74.0-118.0 [facility] Comment on above: Performed By: #### 7 132737, 50123091, 7794282394, 2030578316, 4634108262, 93496751 #### [facility] (DEFAULT) [address] [place] [address] 87452 Osmolality 276 mOsm/L Invalid Interpretation Code [facility] Comment on above: Performed By: #### 7 588616, 53104653, 0182642251, 8530490379, 6757195323, 44324282 #### [facility] (DEFAULT) [address] [place] [address] 46844 Potassium [Moles/Vol] 4.0 mmol/L Normal 3.6-5.1 [facility] Comment on above: Performed By: #### 7 738137, 20402333, 4762269125, 6633648391, 4864111505, 85590999 #### [facility] (DEFAULT) [address] [place] [address] 88882 Protein [Mass/Vol] 7.2 g/dL Normal 6.5-8.1 [facility] Comment on above: Performed By: #### 7 [id number], [id number], [id number], [id number], [id number], [id number] #### [facility] (DEFAULT) [address] [place] [address] 61702 Sodium [Moles/Vol] 137.0 mmol/L Normal 136.0-144.0 [facility] Comment on above: Performed By: #### 7 [id number], [id number], [id number], [id number], [id number], [id number] #### [facility] (DEFAULT) [address] [place] [address] 31959 Urea nitrogen [Mass/Vol] 20 mg/dL Normal 8-26 [facility] Comment on above: Performed By: #### 7 [id number], [id number], [id number], [id number], [id number], [id number] #### [facility] (DEFAULT) [address] [place] [address] 46774 Urea nitrogen/Creatinine [Mass ratio] 27.0 mg/mg High 4.6-16.2 [facility] Comment on above: Performed By: #### 7 [id number], [id number], [id number], [id number], [id number], [id number] #### [facility] (DEFAULT) [address] [place] [address] HgbA1c Standardon 04-10-2020 .Hb 14.7 Invalid Interpretation Code [facility] Comment on above: Performed By: #### 1 [id number], [id number], [id number], [id number], [id number], [id number] #### [facility] (DEFAULT) [address] [place] [address] .Hgb A1c 0.51 g/dL Invalid Interpretation Code [facility] Comment on above: Performed By: #### 1 [id number], [id number], [id number], [id number], [id number], [id number] #### [facility] (DEFAULT) [address] [place] [address] Glucose [Mass/Vol] 106 mg/dL Invalid Interpretation Code [facility] Comment on above: Performed By: #### 1 [id number], [id number], [id number], [id number], [id number], [id number] #### [facility] (DEFAULT) [address] [place] [address] HbA1c (Bld) [Mass fraction] 5.3 % Normal 4.6-6.2 [facility] Comment on above: Performed By: #### 1 [id number], [id number], [id number], [id number], [id number], [id number] #### [facility] (DEFAULT) [address] [place] [address] Lipid Panel Standardon 04-10 Cholesterol [Mass/Vol] 162.0 mg/dL Normal 66.0-200.0 [facility] Comment on above: Result Comment: Rosalind rable - Less than 200 mg/dL Borderline high risk - 200-239 mg/dL High risk - 240 mg/dL and over. Performed By: #### 7 [id number], [id number], [id number], [id number], [id number], [id number] #### [facility] (DEFAULT) [address] [place] [address] 14301 Cholesterol in HDL [Mass/Vol] 64 mg/dL Normal 40-71 [facility] Comment on above: Result Comment: High risk - <40 mg/dL. Performed By: #### 7 [id number], [id number], [id number], [id number], [id number], [id number] #### [facility] (DEFAULT) [address] [place] [address] 47423 Cholesterol in LDL [Mass/Vol] 90 mg/dL Normal 1-100 [facility] Comment on above: Result Comment: Opti mal - Less than 100 mg/dL Borderline high risk - 130-159 mg/dL High risk - 160-189 mg/dL. Performed By: #### 7 [id number], [id number], [id number], [id number], [id number], [id number] #### [facility] (DEFAULT) [address] [place] [address] 19663 Cholesterol.total/Ch olesterol in HDL [Mass ratio] 2.5 {ratio} Normal 0.0-4.5 [facility] Comment on above: Performed By: #### 7 [id number], [id number], [id number], [id number], [id number], [id number] #### [facility] (DEFAULT) [address] [place] [address] 85311 Triglyceride [Mass/Vol] 38.0 mg/dL Normal 0.0-150.0 [facility] Comment on above: Performed By: #### 7 [id number], [id number], [id number], [id number], [id number], [id number] #### [facility] (DEFAULT) [address] [place] [address] 26678 VLDL. 8 mg/dL Normal 5-40 [facility] Comment on above: Performed By: #### 7 [id number], [id number], [id number], [id number], [id number], [id number] #### [facility] (DEFAULT) [address] [place] [address] Encounters Encounter Date Encounter Type Care Provider Facility Start: 06-26-2023 End: 06-26-2023 ambulatory TRISTON WALKER Not Available Start: 11-11-2022 End: 11-12-[address] STEVE DAS . Facility[facility] Start: 11-05-2022 Encounter for genera l adult medical examination without abnormal findings DR GABRIEL LEAHY [facility] Start: 11-01-2022 End: 11-02-[address] GABRIEL LEAHY Facility:[facility] Start: 11-01-2022 End: 11-02-2022 Encounter for general adult medical examination without abnormal findings DR GABRIEL LEAHY Facility:[facility] Start: 06-23-2022 End: 06-23-[address] STEVE DAS . Facility:[facility] Payers Date Payer Category Payer Unknown [id number] 1970 Unknown [id number] 2.16.84 [id number] 1970 Unknown [id number] 2.16.84 [id number] 1970 Unknown [id number] 2.16.84 [id number] 1970 Unknown [id number] 2.16.84 [id number] Summary Purpose Family History No Family History Records FoundNo Family History Records FoundNo Family History Records Found Advance Directives No Advanced Directives Records FoundNo Advanced Directives Records FoundNo Advanced Directives Records Found Additional Source Comments INFORMATION SOURCE (unrecogn ized section and content) DATE CREATED AUTHOR 04/04/2021 [facility] DATE CREATED AUTHOR AUTHOR'S ORGANIZ ATION 11/25/2022 [facility] DATE CREATED AUTHOR AUTHOR'S ORGANIZ ATION 06/27/2023 [facility] EPIC FOR RECORDS PERTAINING TO PATIENTS WHO ARE OR HAVE BEEN ENROLLED IN A CHEMICAL DEPENDENCY/SUBSTANCEABUSE PROGRAM, SOME INFORMATION MAY BE OMITTED. This clinical summary was aggregated from multiple sources. Caution should be exercised in using it in the provision of clinical care. This summary normalizes information from multiple sources, and as a consequence, information in this document may materially change the coding, format and clinical context of patient data. In addition, data may be omitted in some cases. CLINICAL DECISIONS SHOULD BE BASED ON THE PRIMARY CLINICAL RECORDS. [employer] [facility]. provides no warranty or guarantee of the accuracy or completeness of information in this document.
--- NOTE | 2023-06-29 15:06 | XR_ITS ---
The [address] [address] Patient Name: ANATOLIY STUART MRN: [id number] date: 1970 Sex: F Assigned Patient Location: [facility] Current Patient Location: [facility] Accession/Order Number: [id number] Exam Date: 06/29/2023 15:00 Report Date: 06/29/2023 15:46 At the request of: TRISTON WALKER Procedure: XR DEXA axial skeleton EXAMINATION: XR DEXA axial skeleton, 06/29/2023 3:00 PM EST HISTORY: Postmenopausal State COMPARISON: None. TECHNIQUE: Dual-energy X-ray absorptiometry (DEXA) bone density study performed for the axial skeleton. HISTORY: Postmenopausal State FINDINGS: Bone mineral density AP spine L2-L4 measures 1.235 g/sq cm. Young adult T score 0.3. WHO classification: Normal. Lowest bone mineral densities the left femoral trochanter measuring 0.737 g/sq cm. T score -1.0. WHO classification: Normal XR/XR DEXA axial skeleton IMPRESSION: Normal bone mineral density. Low fracture risk Electronically authenticated by: TYLOR ALAMO Date: 06/29/2023 15:46
== END 2023-06-29 14:54 | disposition home or self-care (01) ==
LOC: RAD 14:53
PROVIDERS: PCP Family Medicine; Visit Provider Obstetrics & Gynecology
DX: Z78.0 Asymptomatic menopausal state (principal)
CPT/HCPCS: 77080

== ENCOUNTER 2023-10-02 13:42 | Outpatient (OUT) | payer BC, SELFPAY | END 2023-10-02 13:43 | disposition home or self-care (01) | LOC: PST 13:42 | PROVIDERS: PCP Family Medicine; Visit Provider Surgery | DX: Z01.818 Encounter for other preprocedural examination (principal); Z87.11 Personal history of peptic ulcer disease; K21.9 Gastro-esophageal reflux disease without esophagitis ==

== ENCOUNTER 2023-10-11 06:21 | Day surgery (SDC) | payer BC, SELFPAY ==
--- NOTE | 2023-10-11 | OP_ITS ---
OPERATION DATE: 10/11/2023 PREOPERATIVE DIAGNOSIS: Epigastric pain, gastroesophageal reflux disease, history of gastric ulcers. POSTOPERATIVE DIAGNOSIS: Prepyloric antral ulcer as well as small hiatal hernia. PROCEDURE: EGD with antral biopsy. SURGEON: Anup Pearl M.D. ANESTHESIA: Monitored anesthesia care. ESTIMATED BLOOD LOSS: Less than 1 mL. INDICATIONS AND CONSENT: Patient is a 52-year-old female with personal history of gastric ulcers. She has had worsening epigastric abdominal pain as well as gastroesophageal reflux disease, despite low dose proton pump inhibitors. Indications, risks, benefits, alternatives of proceeding with EGD were explained extensively to the patient, including the risks of bleeding, aspiration, esophageal/gastric/duodenal perforation or anesthetic complications. All of her questions were answered. Informed consent was obtained. PROCEDURE: Patient brought to the operating room, placed in the left lateral decubitus position. Monitored anesthesia care was provided. Bite block was placed in the patient?s mouth. Scope was inserted into the oropharynx. Under direct visualization, it was advanced into the esophagus, past the cricopharyngeus, down to the stomach. The stomach was insufflated with air. There was noted to be a prepyloric ulcer with white exudate. No visible vessel. No old or new blood. There was some spasm of the pylorus, but it was able to be traversed down to the descending portion of the duodenum. There was no evidence of duodenitis or ulceration. There was no scarring within the pyloric channel. Scope was pulled back into the stomach and retroflexed. There was a small, sliding type hiatal hernia. No other gastric mucosal abnormalities. Biopsies around the ulcer were obtained. There appeared to be a shallow, approximately 7 mm prepyloric ulcer. The GE junction was noted at approximately 38 cm. There was a normal Z-line with no evidence of Lawson?s esophagus. The remainder of the esophagus was unremarkable. The scope was then withdrawn. Patient tolerated procedure well, was sent to recovery room in good condition. CC: Tess Nunn M.D. MARRY
--- OUTSIDE RECORDS SUMMARY | 2023-10-11 06:25 | XMS_ITS | CCD ---
Author Organization [facility] Care Team Providers Care Cell Coverer Name Role Phone PIPPA ., DR WILSON Admitting Unavailabl e KARCHIP ., DR WILSON Consulting Unavailabl e PIPPA ., DR WILSON Attending Guillermina LEAHY, DR GABRIEL Pickard Primary Care Unavailable MEMPHIS, DR TYLOR Whitney Consulting Unavailable LEAHY, DR GABRIEL Pickard Consulting Unavailable LEAHY, DR GABRIEL Pickard Attending Unavailable LEAHY, DR GABRIEL Pickard Admitting Unavailable LEAHY, DR GABRIEL Pickard Primary Care Unavailable PIPPA ., DR WILSON Admitting Unavailabl e PIPPA ., DR WILSON Consulting Unavailabl e PIPPA ., DR WILSON Attending Unavailabl e ARMOND, DR GABRIEL Pickard Primary Care Unavailable TRISTON WALKER Attending Unavailable ARMOND, GABRIEL Primary Care Physician Anup JOHNSTON Attending Unavailable Medications Current Medications Medication Drug Class(es) Dates Sig (Normalized) Sig (Original) levothyroxine sodium 0.088 mg oral tablet (1 source) l-Thyroxine Start: 08-30-2023 take 1 tablet by mouth once daily Synthroid 88 mcg Tab 88 mcg = 1 tab(s), Oral, Daily, Refills(s) 0 Start Date: 08/30/23 Status: Ordered Multi Vitamins oral tablet (1 source) Start: 08-30-2023 take 1 tablet by mouth once daily Multi Vitamins oral tablet 1 tab(s), Oral, Daily, Refill(s) 0 Start Date: 08/30/23 Status: Ordered pantoprazole 20 mg delayed release oral tablet (1 source) Proton Pump Inhibitor Start: 08-30-2023 take 1 tablet by mouth once daily Protonix 20 mg Tab-DR 20 mg = 1 tab(s), Oral, Daily, Refills(s) 0 Start Date: 08/30/23 Status: Ordered Problems Active Problems Problem Classification Problem Date Documented Da te Episodic/Chronic Abdominal pain (2 sources) Epigastric pain; Translations: [Epigastric pain] Onset: 4 Episodic Diverticulosis and diverticulitis (1 source) Diverticular disease 08-25-2023 Chronic Esophageal disorders (2 sources) Gastroesophageal reflux disease without esophagitis; Translations: [Gastro-esophageal reflux disease without esophagitis] Onset: 4 Chronic Gastroduodenal ulcer (except hemorrhage) (2 sources) H/O: peptic ulcer; Translations: [Personal history of peptic ulcer disease] Onset: 4 Episodic Other gastrointestinal disorders (1 source) History of gastritis 08-25-2023 Episodic Other screening for suspected conditions (not mental disorders or infectious disease) (8 sources) Encounter for screening mammogram for malignant neoplasm of breast; Translations: [Encounter for screening for malignant neoplasm of cervix] Onset: 3 Episodic Residual codes; unclassified (1 source) Family history of malignant neoplasm of breast; Translations: [FAMILY HX MALIG NEOPLASM OF BREAST] Onset: 3 Episodic Residual codes; unclassified (1 source) Family history of malignant neoplasm of digestive organs; Translations: [FAM HX MALIG NEOPLASM DIGESTIV ORGN] Onset: 3 Episodic Thyroid disorders (1 source) Hypothyroidism 08-30-2023 Chronic Unclassified (1 source) Body mass index 20-24 - normal 08-30-2023 Past or Other Problems Problem Classification Problem Date Documented Date Episodic/Chronic Immunizations and screening for infectious disease (1 source) Encounter for screening for human papillomavirus (HPV); Translations: [ENC SCREENING HUMAN PAPILLOMAVIRUS] Onset: 06-26-2022 Episodic Results Test Name Value Interpretation Reference Range Facility Pre-Certification Formon Pre-Certification Form [id number]#[id number] Normal [facility] Consent for Procedure/Surger yon 08-31-2023 Consent for Procedure/Surgery [id number]#1.00TIFF Normal [facility] Facesheeton 08-31-2023 Facesheet [id number]#1.00TIFF Normal [facility] Ambulatory Visit Summaryon 0 08-30-2023 Ambulatory Visit Summary ANATOLIY STUART :1970 Visit Date:08/30/2023 Ambulatory Visit Instructions Your Care Team Attending Physician - PRESTON ROSALES, Anup Frias Primary Care Physician - ARMOND ROSALES, GABRIEL This Is Your Medications List Contact prescribing physician if questions or concerns levothyroxine (Synthroid 88 mcg Tab) multivitamin (Multi Vitamins oral tablet) pantoprazole (Protonix 20 mg Tab-DR) Procedures Performed Colonoscopy (11/02/2016), EGD - esophagogastroduodenoscopy (11/02/2016), Colonoscopy (01/19/2011), EGD - esophagogastroduodenoscopy (01/19/2011), section, section, Cholecystectomy, Excision of ganglion cyst of foot. Discharge Vitals Heart Rate (Peripheral) 72 Respiratory Rate 16 Blood Pressure 116/78 Height 163 cm Height 64 in Weight 59.8 kg Weight 131.56 lb BMI 22.51 Medications What How Much When Instructions Unchanged levothyroxine (Synthroid 88 mcg Tab) 1 Tablets By Mouth Every day Contact prescribing physician if questions or concerns Unchanged multivitamin (Multi Vitamins oral tablet) 1 Tablets By Mouth Every day Contact prescribing physician if questions or concerns Unchanged pantoprazole (Protonix 20 mg Tab-DR) 1 Tablets By Mouth Every day Contact prescribing physician if questions or concerns Allergies No Known Allergies No Known Medication Allergies Problems Ongoing - Any problem that you are currently receiving treatment for. BMI 22.0-22.9, adult Diverticulosis History of gastric ulcer History of gastritis Hypothyroidism Patient Survey You may receive a survey via text or e-mail asking about your office visit. Please share your experience with us by completing your survey. We appreciate your feedback and thank you for choosing us for your care. Normal [facility] MG MAMM SCREEN 3D CHRISTAL CADon 11-11-2022 MG MAMM SCREEN 3D CHRISTAL CAD Patient: ANATOLIY STUART Exam Date: 11/11/2022 : 1970 Gender:F Ordering : DR TRISTON WALKER . Admission #: [id number] Family : Order #: [id number] CLICK HERE TO VIEW EXAM RADIOLOGY REPORT [...] breast cancer at age 69. LOCATION: [facility] BREAST COMPOSITION: Extremely dense, which lowers the [...] MD on 11/11/2022 at 13:58 Normal [facility] CBC AUTO DIFFon 11-01-2022 BASO # 0.1 103/ul Normal 0.0-0.1 [facility] Comment on above: Performed By: #### C BC #### [facility] [address] [place] [address] Dr. Edelmira Hirsch Basophils/100 WBC (Bld) 1.0 % Normal 0.2-2.0 [facility] Comment on above: Performed By: #### C BC #### [facility] [address] [place] [address] Dr. Edelmira Hirsch EO # 1.0 103/ul Critically high 0.0-0.7 [facility] Comment on above: Performed By: #### C BC #### [facility] [address] [place] [address] Dr. Edelmira Hirsch Eosinophils/100 WBC (Bld) 13.9 % Critically high 0.9-7.0 [facility] Comment on above: Performed By: #### C BC #### [facility] [address] [place] [address] Dr. Edelmira Hirsch Erythrocyte distribution width (RBC) [Ratio] 12.2 % Normal 11.0-15.0 [facility] Comment on above: Performed By: #### C BC #### [facility] [address] [place] [address] Dr. Edelmira Hirsch Hematocrit (Bld) [Volume fraction] 40.5 % Normal 36.0-48.0 [facility] Comment on above: Performed By: #### C BC #### [facility] [address] [place] [address] Dr. Edelmira Hirsch Hemoglobin (Bld) [Mass/Vol] 13.8 g/dL Normal 12.0-16.0 [facility] Comment on above: Performed By: #### C BC #### [facility] [address] [place] [address] Dr. Edelmira Hirsch IG # 0.02 10e3/ul Normal 0.00-0.03 [facility] Comment on above: Performed By: #### C BC #### [facility] [address] [place] [address] Dr. Edelmira Hirsch IG % 0.3 % Normal 0.0-0.5 [facility] Comment on above: Performed By: #### C BC #### [facility] [address] [place] [address] Dr. Edelmira Hirsch LYMPH # 1.8 103/ul Normal 1.2-3.8 [facility] Comment on above: Performed By: #### C BC #### [facility] [address] [place] [address] Dr. Edelmira Hirsch Lymphocytes/100 WBC (Bld) 24.6 % Normal 20.5-60.0 [facility] Comment on above: Performed By: #### C BC #### [facility] [address] [place] [address] Dr. Edelmira Hirsch MANUAL DIFF REQ NO Normal [facility] Comment on above: Performed By: #### C BC #### [facility] [address] [place] [address] Dr. Edelmira Hirsch MCH (RBC) [Entitic mass] 32.2 pg Normal 26.7-34.0 [facility] Comment on above: Performed By: #### C BC #### [facility] [address] [place] [address] Dr. Edelmira Hirsch MCHC (RBC) [Mass/Vol] 34.1 g/dL Normal 29.9-35.2 [facility] Comment on above: Performed By: #### C BC #### [facility] [address] [place] [address] Dr. Edelmira Hirsch MCV (RBC) [Entitic vol] 94.6 fL Normal 81.0-99.0 [facility] Comment on above: Performed By: #### C BC #### [facility] [address] [place] [address] Dr. Edelmira Hirsch MONO # 0.5 103/ul Normal 0.3-0.8 [facility] Comment on above: Performed By: #### C BC #### [facility] [address] [place] [address] Dr. Edelmira Hirsch Monocytes/100 WBC (Bld) 6.5 % Normal 1.7-12.0 [facility] Comment on above: Performed By: #### C BC #### [facility] [address] [place] [address] Dr. Edelmira Hirsch NEUT # 3.8 103/ul Normal 1.4-6.5 [facility] Comment on above: Performed By: #### C BC #### [facility] [address] [place] [address] Dr. Edelmira Hirsch Neutrophils/100 WBC (Bld) 53.7 % Normal 43.0-75.0 [facility] Comment on above: Performed By: #### C BC #### [facility] [address] [place] [address] Dr. Edelmira Hirsch Platelet mean volume (Bld) [Entitic vol] 10.0 fL Normal 9.5-13.5 [facility] Comment on above: Performed By: #### C BC #### [facility] [address] [place] [address] Dr. Edelmira Hirsch PLT 276 103/ul Normal 150-450 [facility] Comment on above: Performed By: #### C BC #### [facility] [address] [place] [address] Dr. Edelmira Hirsch RBC 4.28 106/ul Normal 4.20-5.40 [facility] Comment on above: Performed By: #### C BC #### [facility] [address] [place] [address] Dr. Edelmira Hirsch WBC 7.1 103/ul Normal 4.0-11.0 [facility] Comment on above: Performed By: #### C BC #### [facility] [address] [place] [address] Dr. Edelmira Hirsch GLYCOHEMOGLOBIN A1Con 2022 ADA RECOMMENDATION SEE BELOW Normal [facility] Comment on above: Result Comment: ADA RECOMMENDED LIMIT 4.0 - 6.0 ADA THERAPEUTIC TARGET < 7.0 ACTION SUGGESTED > 7.0 Performed By: #### A 1C #### [facility] [address] [place] [address] Dr. Edelmira Hirsch Glucose [Mass/Vol] 100 mg/dL Normal [facility] Comment on above: Performed By: #### A 1C #### [facility] [address] [place] [address] Dr. Edelmira Hirsch HbA1c (Bld) [Mass fraction] 5.1 % Normal 4.5-6.2 [facility] Comment on above: Performed By: #### A 1C #### [facility] [address] [place] [address] Dr. Edelmira Hrisch LIPID PROFILEon 11-01-2022 CHOL-HDL RATIO NORM SEE BELOW Normal [facility] Comment on above: Result Comment: 3.3 - 4.4 LOW RISK 4.4 - 7.1 AVERAGE RISK 7.1 - 11.0 MODERATE RISK >11.0 HIGH RISK Performed By: #### L IPID, CMP, TSH #### [facility] [address] [place] [address] Dr. Edelmira Hirsch Cholesterol [Mass/Vol] 164 mg/dL Normal <=200 [facility] Comment on above: Performed By: #### L IPID, CMP, TSH #### [facility] [address] [address] [address] Edelmira Hirsch Cholesterol in HDL [Mass/Vol] 80 mg/dL Critically high 40-60 [facility] Comment on above: Performed By: #### L IPID, CMP, TSH #### [facility] [address] [address] [address] Edelmira Hirsch Cholesterol in LDL [Mass/Vol] 76.8 mg/dL Normal [facility] Comment on above: Performed By: #### L IPID, CMP, TSH #### [facility] [address] [address] [address] Edelmira Hirsch Cholesterol.total/ Cholesterol in HDL [Mass ratio] 2.1 {ratio} Normal [facility] Comment on above: Performed By: #### L IPID, CMP, TSH #### [facility] [address] [address] [address] Edelmira Hirsch HDL NORMAL > or = 60 mg/dl - LO W CARDIOVASCULAR RISK <40 mg/dl - HIGH CARDIOVASCULAR RISK Normal [facility] Comment on above: Performed By: #### L IPID, CMP, TSH #### [facility] [address] [address] [address] Edelmira Hirsch LDL CALC NORMAL SEE BELOW Normal [facility] Comment on above: Result Comment: <100 mg/dl OPTIMAL 100 - 129 mg/dl NEAR OR ABOVE OPTIMAL 130 - 159 mg/dl BORDERLINE HIGH 160 - 189 mg/dl HIGH >190 mg/dl VERY HIGH Performed By: #### L IPID, CMP, TSH #### [facility] [address] [address] [address] Edelmira Hirsch Triglyceride [Mass/Vol] 36 mg/dL Normal <=150 [facility] Comment on above: Performed By: #### L IPID, CMP, TSH #### [facility] [address] [address] [address] Edelmira Hirsch VLDL CALC 7.2 mg/dL Normal [facility] Comment on above: Performed By: #### L IPID, CMP, TSH #### [facility] [address] [address] [address] Edelmira Hirsch PROF 14(COMP METB)on 023 Albumin [Mass/Vol] 3.5 g/dL Normal 3.4-5.0 [facility] Comment on above: Performed By: #### L IPID, CMP, TSH #### [facility] [address] [address] [address] Edelmira Hirsch Albumin/Globulin [Mass ratio] 0.9 {ratio} Normal [facility] Comment on above: Performed By: #### L IPID, CMP, TSH #### [facility] [address] [address] [address] Edelmira Hirsch ALP [Catalytic activity/Vol] 51 U/L Normal 46-116 [facility] Comment on above: Performed By: #### L IPID, CMP, TSH #### [facility] [address] [address] [address] Edelmira Hirsch ALT [Catalytic activity/Vol] 23 U/L Normal 14-59 [facility] Comment on above: Performed By: #### L IPID, CMP, TSH #### [facility] [address] [address] [address] Edelmira Hirsch Anion gap [Moles/Vol] 11.2 mmol/L Normal [facility] Comment on above: Performed By: #### L IPID, CMP, TSH #### [facility] [address] [address] [address] Edelmira Hirsch AST [Catalytic activity/Vol] 18 U/L Normal 15-37 [facility] Comment on above: Performed By: #### L IPID, CMP, TSH #### [facility] [address] [address] [address] Edelmira Hirsch Bilirubin [Mass/Vol] 0.9 mg/dL Normal 0.2-1.0 [facility] Comment on above: Performed By: #### L IPID, CMP, TSH #### [facility] [address] [address] [address] Edelmira Hirsch Calcium [Mass/Vol] 9.4 mg/dL Normal 8.5-10.1 [facility] Comment on above: Performed By: #### L IPID, CMP, TSH #### [facility] [address] [place] [address] Dr. Edelmira Hirsch Chloride [Moles/Vol] 104 mmol/L Normal 98-107 [facility] Comment on above: Performed By: #### L IPID, CMP, TSH #### [facility] [address] [place] [address] Dr. Edelmira Hirsch CO2 [Moles/Vol] 29.5 mmol/L Normal 21.0-32.0 [facility] Comment on above: Performed By: #### L IPID, CMP, TSH #### [facility] [address] [place] [address] Dr. Edelmira Hirsch Creatinine [Mass/Vol] 0.86 mg/dL Normal 0.55-1.02 [facility] Comment on above: Performed By: #### L IPID, CMP, TSH #### [facility] [address] [place] [address] Dr. Edelmira Hirsch EGFR-AF POLISH >60 Normal >=60 [facility] Comment on above: Performed By: #### L IPID, CMP, TSH #### [facility] [address] [place] [address] Dr. Edelmira Hirsch EGFR-NON AF POLISH >60 Normal >=60 [facility] Comment on above: Performed By: #### L IPID, CMP, TSH #### [facility] [address] [place] [address] Dr. Edelmira Hirsch Globulin (S) [Mass/Vol] 3.7 g/dL Normal [facility] Comment on above: Performed By: #### L IPID, CMP, TSH #### [facility] [address] [place] [address] Dr. Edelmira Hirsch Glucose [Mass/Vol] 97 mg/dL Normal 74-106 [facility] Comment on above: Performed By: #### L IPID, CMP, TSH #### [facility] [address] [place] [address] Dr. Edelmira Hirsch Potassium [Moles/Vol] 4.7 mmol/L Normal 3.5-5.1 [facility] Comment on above: Performed By: #### L IPID CMP, TSH #### [facility] [address] [place] [address] Dr. Edelmira Hirsch Protein [Mass/Vol] 7.2 g/dL Normal 6.4-8.2 [facility] Comment on above: Performed By: #### L IPID, CMP, TSH #### [facility] [address] [place] [address] Dr. Edelmira Hirsch Sodium [Moles/Vol] 140 mmol/L Normal 136-145 [facility] Comment on above: Performed By: #### L IPID CMP, TSH #### [facility] [address] [place] [address] Dr. Edelmira Hirsch Urea nitrogen [Mass/Vol] 14.0 mg/dL Normal 7.0-18.0 [facility] Comment on above: Performed By: #### L IPID CMP, TSH #### [facility] [address] [place] [address] Dr. Edelmira Hirsch Urea nitrogen/Creatinin e [Mass ratio] 16.3 mg/mg Normal [facility] Comment on above: Performed By: #### L IPID CMP, TSH #### [facility] [address] [place] [address] Dr. Edelmira Hirsch TSHon 11-01-2022 TSH 2.540 uIU/mL Normal 0.358-3.740 [facility] Comment on above: Performed By: #### L IPID, CMP, TSH #### [facility] [address] [place] [address] Dr. Edelmira Hirsch PAP ACOG PANEL 2: 30 to 65on 06-27-2022 . . Normal [facility] Comment on above: Result Comment: Perf ormed at: WB Performed By: #### 4 [id number] #### [facility] [address] [place] [address] Dr. Edelmira Hirsch Age Gdln ACOG Testing 30-65 Normal [facility] Comment on above: Performed By: #### 4 [id number] #### [facility] [address] [place] [address] Dr. Edelmira Hirsch DIAGNOSIS: Comment Normal [facility] Comment on above: Result Comment: NEGA TIVE FOR INTRAEPITHELIAL LESION OR MALIGNANCY. Performed at: WB Performed By: #### 4 [id number] #### [facility] [address] [place] [address] Dr. Edelmira Hirsch HPV Aptima Negative Normal Negative [facility] Comment on above: Result Comment: This nucleic acid amplification test detects fourteen high-risk HPV types (16,18,31,33,35,39,45,51,52,56,58,59,66,68) without differentiation. Performed at: =G Performed By: #### 4 [id number] #### [facility] [address] [place] [address] Dr. Edelmira Hirsch HPV Genotype Reflex Comment Normal [facility] Comment on above: Result Comment: Crit eria not met, HPV Genotype not performed. Performed at: WB Performed By: #### 4 [id number] #### [facility] [address] [place] [address] Dr. Edelmira Hirsch Methodology: Comment Normal [facility] Comment on above: Result Comment: This liquid based ThinPrep(R) pap test was screened with the use of an image guided system. Performed at: WB Performed By: #### 4 [id number] #### [facility] [address] [place] [address] Dr. Edelmira Hirsch Note: Comment Normal [facility] Comment on above: Result Comment: The Pap smear is a screening test designed to aid in the detection of premalignant and malignant conditions of the uterine cervix. It is not a diagnostic procedure and should not be used as the sole means of detecting cervical cancer. Both false-positive and false-negative reports do occur. . Performed at: WB Performed By: #### [id number] #### [facility] [address] [place] [address] Dr. Edelmira Hirsch Performed by: Comment Normal [facility] Comment on above: Result Comment: Aury Andrade, Shellfish Dredge Operator (ASCP) Performed at: WB Performed By: #### 4 [id number] #### [facility] [address] [place], [place] [address] Dr. Edelmira Hirsch Specimen adequacy: Comment Normal [facility] Comment on above: Result Comment: Sati sfactory for evaluation. Endocervical and/or squamous metaplastic cells (endocervical component) are present. Performed at: WB Performed By: #### 4 [id number] #### [facility] [address] [address] [address] Edelmira Hirsch Nicotine and Metabolite, Harlan nt LCon 04-04-2021 Cotinine LC <1.0 Invalid Interpretation Code [facility] Comment on above: Result Comment: This test was developed and its performance characteristics determined by [facility]. It has not been cleared or approved by the Food and Drug Administration. Cotinine levels greater than 20.0 are consistent with the use of tobacco or tobacco cessation products. Performed At: [address] [id number] Speedy Rodriguez MD Ph:[phone] Performed By: #### 1 [id number], [id number], [id number], [id number], [id number] #### [facility] (DEFAULT) [address] [place] [address] Nicotine LC <1.0 Invalid Interpretation Code [facility] Comment on above: Result Comment: This test was developed and its performance characteristics determined by [facility]. It has not been cleared or approved by the Food and Drug Administration. Nicotine levels greater than 2.0 are consistent with the use of tobacco or tobacco cessation products. Performed By: #### 1 [id number], [id number], [id number], [id number], [id number], [id number] #### [facility] (DEFAULT) [address] [place] [id number] .Auto Diff 1on 03-30-2021 Auto [place] % 7 % Normal 06-30 [facility] Comment on above: Performed By: #### 1 [id number], [id number], [id number], [id number], [id number], [id number] #### [facility] (DEFAULT) [address] [place] [address] Baso Abs# 0.0 x10 Normal 0.0-0.2 [facility] Comment on above: Performed By: #### 1 [id number], [id number], [id number], [id number], [id number], [id number] #### [facility] (DEFAULT) [address] [place] [address] Basophils/100 WBC (Bld) 0.4 % Normal 0.2-2.0 [facility] Comment on above: Performed By: #### 1 2475779, 7612154994, 0952019227, 6101322240, 86040456, 8169852 #### [facility] (DEFAULT) [address] [place] [address] 37791 Eos Abs# 1.0 x10 High 0.0-0.4 [facility] Comment on above: Performed By: #### 1 5361284, 7327915737, 3034724843, 1233522533, 36498301, 2604069 #### [facility] (DEFAULT) [address] [place] [address] 39817 Eosinophils/100 WBC (Bld) 13.5 % High 0.9-4.0 [facility] Comment on above: Performed By: #### 1 6374820, 9070718737, 8464852133, 8854362592, 65380370, 4815293 #### [facility] (DEFAULT) [address] [place] [address] 11663 Lymph Abs# 2.1 x10 Normal 1.3-2.9 [facility] Comment on above: Performed By: #### 1 5767702, 0700405248, 6457599546, 5341291539, 45024614, 9023643 #### [facility] (DEFAULT) [address] [place] [address] 97962 Lymphocytes/100 WBC (Bld) 29 % Normal 14-48 [facility] Comment on above: Performed By: #### 1 8458049, 6431707559, 5895078246, 5849953407, 87809815, 1934703 #### [facility] (DEFAULT) [address] [place] [address] [place] Abs# 0.5 x10 Normal 0.0-0.8 [facility] Comment on above: Performed By: #### 1 2502944, 2764481018, 5923317933, 3275065575, 27345272, 8669916 #### [facility] (DEFAULT) [address] [place] [address] Neut Abs# 3.5 x10 Normal 1.5-9.2 [facility] Comment on above: Performed By: #### 1 8611273, 7499316883, 2120284351, 0334802301, 46022205, 7016577 #### [facility] (DEFAULT) [address] [place] [address] Neutrophils/100 WBC (Bld) 50 % Normal 44-88 [facility] Comment on above: Performed By: #### 1 5392801, 7345837645, 1836578524, 7685433862, 86385463, 2459460 #### [facility] (DEFAULT) [address] [place] [address] CBC w/ Auto Diffon Erythrocyte distribution width (RBC) [Ratio] 13.2 % Normal 11.5-15.0 [facility] Comment on above: Performed By: #### 1 9473913, 8794021652, 4097698164, 0190037210, 66226541, 8826969 #### [facility] (DEFAULT) [address] [place] [address] Hematocrit (Bld) [Volume fraction] 38.4 % Normal 33.7-40.4 [facility] Comment on above: Performed By: #### 1 8217769, 8887701912, 2125172824, 7092733775, 39125704, 2911217 #### [facility] (DEFAULT) [address] [place] [address] Hemoglobin (Bld) [Mass/Vol] 12.4 g/dL Normal 11.3-15.9 [facility] Comment on above: Performed By: #### 1 8062252, 6427727547, 0872463447, 6087224159, 23150487, 5950856 #### [facility] (DEFAULT) [address] [place] [address] 67705 Instr WBC 7.1 x10 Invalid Interpretation Code [facility] Comment on above: Performed By: #### 1 6692008, 9148987531, 0684819337, 7603048838, 94537741, 9855751 #### [facility] (DEFAULT) [address] [place] [address] 16908 Man Diff? Auto Normal [facility] Comment on above: Performed By: #### 1 1604176, 0156130098, 7727699003, 5385421889, 23551635, 8558463 #### [facility] (DEFAULT) [address] [place] [address] 83312 MCH (RBC) [Entitic mass] 30 pg Normal 24-34 [facility] Comment on above: Performed By: #### 1 3998273, 3394498075, 8754081015, 7264757615, 76643380, 2378773 #### [facility] (DEFAULT) [address] [place] [address] 11377 MCHC (RBC) [Mass/Vol] 32 g/dL Normal 26-37 [facility] Comment on above: Performed By: #### 1 9729639, 7003801883, 9804871086, 0132059744, 59221104, 1555590 #### [facility] (DEFAULT) [address] [place] [address] 20004 MCV (RBC) [Entitic vol] 94 fL Normal 81-100 [facility] Comment on above: Performed By: #### 1 5384829, 6987091704, 1108574940, 8547456145, 58931060, 9200981 #### [facility] (DEFAULT) [address] [place] [address] 66486 Platelet 265 x10 Normal 138-427 [facility] Comment on above: Performed By: #### 1 0286073, 6023497694, 3594135921, 8720393433, 21109609, 9294135 #### [facility] (DEFAULT) [address] [place] [address] Platelet mean volume (Bld) [Entitic vol] 10.3 fL High 6.3-10.2 [facility] Comment on above: Performed By: #### 1 3969014, 0896963748, 0962123942, 3724833470, 52837389, 8073301 #### [facility] (DEFAULT) [address] [place] [address] RBC 4.10 x10 Normal 3.70-5.30 [facility] Comment on above: Performed By: #### 1 0197142, 9779683927, 4716162974, 7338517336, 73960951, 3437123 #### [facility] (DEFAULT) [address] [place] [address] WBC 7.1 x10 Normal 3.5-10.5 [facility] Comment on above: Performed By: #### 1 0107180, 2484138633, 7849138468, 5312257790, 24900498, 3570073 #### [facility] (DEFAULT) [address] [place] [address] Standardon 03-30-2021 eGFR Non AA >60 Invalid Interpretation Code [facility] Comment on above: Performed By: #### 1 9253157, 6808076053, 1467524647, 4342094376, 97014452, 5665176 #### [facility] (DEFAULT) [address] [place] [address] eGFR AA >60 Invalid Interpretation Code [facility] Comment on above: Result Comment: Vise Hand roddy Kidney disease could be indicated at eGFRs of less than 60 ml/min/1.73m2. Kidney Failure is indicated at less than 15 ml/min/1.73m2 Performed By: #### 1 5976676, 3915462539, 9399391091, 4249070068, 22024771, 1524834 #### [facility] (DEFAULT) [address] [place] [address] Albumin [Mass/Vol] 3.6 g/dL Normal 3.5-5.0 [facility] Comment on above: Performed By: #### 1 7273556, 3852264975, 7652230351, 0162090300, 05862416, 1650901 #### [facility] (DEFAULT) [address] [place] [address] Albumin/Globulin [Mass ratio] 1.1 {ratio} Low 1.4-2.6 [facility] Comment on above: Performed By: #### 1 0542324, 1181013928, 9479062035, 5547623311, 26737551, 5175141 #### [facility] (DEFAULT) [address] [place] [address] Alk Phos 61 IU/L Normal 32-91 [facility] Comment on above: Performed By: #### 1 7741401, 2902357167, 5256726701, 3745716080, 78410613, 5110355 #### [facility] (DEFAULT) [address] [place] [address] ALT [Catalytic activity/Vol] 14.0 U/L Normal 14.0-54.0 [facility] Comment on above: Performed By: #### 1 6934348, 2228865230, 4307954045, 4203209530, 07986778, 0960120 #### [facility] (DEFAULT) [address] [place] [address] 01867 Anion gap [Moles/Vol] 9.0 mmol/L Normal 5.0-19.0 [facility] Comment on above: Performed By: #### 1 1779299, 1170851087, 1782739134, 9575157102, 57193780, 0660786 #### [facility] (DEFAULT) [address] [place] [address] 91741 AST [Catalytic activity/Vol] 21 U/L Normal 15-41 [facility] Comment on above: Performed By: #### 1 3978337, 9665090287, 2445991061, 6503643535, 59066563, 7543183 #### [facility] (DEFAULT) [address] [place] [address] 66933 Bili Total 0.9 mg/dL Normal 0.3-1.2 [facility] Comment on above: Performed By: #### 1 3924183, 9729043566, 8847761392, 0055028390, 01741583, 7078653 #### [facility] (DEFAULT) [address] [place] [address] 19809 Calcium [Mass/Vol] 8.6 mg/dL Low 8.9-10.3 [facility] Comment on above: Performed By: #### 1 3154604, 8923417936, 1363262253, 2070796587, 79740037, 6152367 #### [facility] (DEFAULT) [address] [place] [address] 79940 Chloride [Moles/Vol] 103 mmol/L Normal 101-111 [facility] Comment on above: Performed By: #### 1 4442288, 8133722306, 2926721171, 8450946401, 80928142, 7039403 #### [facility] (DEFAULT) [address] [place] [address] 93532 CO2 [Moles/Vol] 27 mmol/L Normal 21-32 [facility] Comment on above: Performed By: #### 1 7449633, 3655791720, 3123563016, 1045751735, 94629293, 2144506 #### [facility] (DEFAULT) [address] [place] [address] 16842 Creatinine [Mass/Vol] 0.81 mg/dL Normal 0.60-1.30 [facility] Comment on above: Performed By: #### 1 2826041, 2730250682, 0812291091, 3605018988, 49027013, 4381074 #### [facility] (DEFAULT) [address] [place] [address] 51933 Globulin (S) [Mass/Vol] 3.4 g/dL Normal 1.5-4.3 [facility] Comment on above: Performed By: #### 1 1734449, 6314940448, 3552031689, 2609284175, 64523813, 9736998 #### [facility] (DEFAULT) [address] [place] [address] 41638 Glucose [Mass/Vol] 89.0 mg/dL Normal 74.0-118.0 [facility] Comment on above: Performed By: #### 1 2354237, 9248870202, 1155161297, 9108889391, 99002638, 6676409 #### [facility] (DEFAULT) [address] [place] [address] 87133 Osmolality 269 mOsm/L Invalid Interpretation Code [facility] Comment on above: Performed By: #### 1 5963780, 3098384322, 8716289174, 4017598142, 47420989, 3090952 #### [facility] (DEFAULT) [address] [place] [address] 26033 Potassium [Moles/Vol] 4.0 mmol/L Normal 3.6-5.1 [facility] Comment on above: Performed By: #### 1 8928884, 7210555845, 4917145682, 3461652371, 92030149, 4845865 #### [facility] (DEFAULT) [address] [place] [address] 84101 Protein [Mass/Vol] 7.0 g/dL Normal 6.5-8.1 [facility] Comment on above: Performed By: #### 1 7061492, 2341970679, 3969560436, 4507409323, 22498719, 0911189 #### [facility] (DEFAULT) [address] [place] [address] 74246 Sodium [Moles/Vol] 135.0 mmol/L Low 136.0-144.0 [facility] Comment on above: Performed By: #### 1 7721237, 4727989474, 1175656643, 5536447524, 62524104, 8238193 #### [facility] (DEFAULT) [address] [place] [address] 41397 Urea nitrogen [Mass/Vol] 12 mg/dL Normal 8-26 [facility] Comment on above: Performed By: #### 1 9079342, 1781752276, 6195726412, 1185953976, 23066208, 1162274 #### [facility] (DEFAULT) [address] [place] [address] 79356 Urea nitrogen/Creatinin e [Mass ratio] 15.0 mg/mg Normal 4.6-16.2 [facility] Comment on above: Performed By: #### 1 9960097, 7222807570, 2556717551, 1228283699, 61132008, 3941531 #### [facility] (DEFAULT) [address] [place] [address] HgbA1c Standardon 03-30-2021 .Hb 14.4 Invalid Interpretation Code [facility] Comment on above: Performed By: #### 1 1613106, 4449777013, 3750836272, 1501921052, 28138974, 4548183 #### [facility] (DEFAULT) [address] [place] [address] .Hgb A1c 0.48 g/dL Invalid Interpretation Code [facility] Comment on above: Performed By: #### 1 2769283, 2573199734, 3205813913, 0732621189, 33486842, 7596948 #### [facility] (DEFAULT) [address] [place] [address] Glucose [Mass/Vol] 103 mg/dL Invalid Interpretation Code [facility] Comment on above: Performed By: #### 1 4298216, 0076999939, 1215918246, 3839323719, 40204219, 5920583 #### [facility] (DEFAULT) [address] [place] [address] HbA1c (Bld) [Mass fraction] 5.2 % Normal 4.6-6.2 [facility] Comment on above: Performed By: #### 1 4516777, 0604136905, 3620478842, 9111036642, 10192760, 5329065 #### [facility] (DEFAULT) [address] [place] [address] Lipid Panel Standardon 03-30 Cholesterol [Mass/Vol] 171.0 mg/dL Normal 66.0-200.0 [facility] Comment on above: Result Comment: Rosalind rable - Less than 200 mg/dL Borderline high risk - 200-239 mg/dL High risk - 240 mg/dL and over. Performed By: #### 1 2870635, 0410169823, 0181113597, 3302657855, 68255418, 0552999 #### [facility] (DEFAULT) [address] [place] [address] 26092 Cholesterol in HDL [Mass/Vol] 64 mg/dL Normal 40-71 [facility] Comment on above: Result Comment: High risk - <40 mg/dL. Performed By: #### 1 9182559, 9588871244, 1234704862, 7139722174, 84315532, 5009536 #### [facility] (DEFAULT) [address] [place] [address] 01435 Cholesterol in LDL [Mass/Vol] 93 mg/dL Normal 1-100 [facility] Comment on above: Result Comment: Opti mal - Less than 100 mg/dL Borderline high risk - 130-159 mg/dL High risk - 160-189 mg/dL. Performed By: #### 1 5814614, 2629500745, 9655792338, 6953401670, 84755537, 0590767 #### [facility] (DEFAULT) [address] [place] [address] 14292 Cholesterol.total/ Cholesterol in HDL [Mass ratio] 2.7 {ratio} Normal 0.0-4.5 [facility] Comment on above: Performed By: #### 1 5484597, 5067815534, 5559338588, 6568138088, 22950772, 6984168 #### [facility] (DEFAULT) [address] [place] [address] 82593 Triglyceride [Mass/Vol] 73.0 mg/dL Normal 0.0-150.0 [facility] Comment on above: Performed By: #### 1 8758118, 4258791681, 3424661857, 1171358704, 73243487, 5370721 #### [facility] (DEFAULT) [address] [place] [address] 44756 VLDL. 15 mg/dL Normal 5-40 [facility] Comment on above: Performed By: #### 1 3880495, 9014950662, 2286980737, 3803580698, 68270662, 8634101 #### [facility] (DEFAULT) [address] [place] [address] 86528 Nicotine and Metabolite, Harlan nt LCon 04-20-2020 Cotinine LC <1.0 Invalid Interpretation Code [facility] Comment on above: Result Comment: This test was developed and its performance characteristics determined by [facility]. It has not been cleared or approved by the Food and Drug Administration. Cotinine levels greater than 20.0 are consistent with the use of tobacco or tobacco cessation products. Performed At: [address] [id number] Speedy Rodriguez MD Ph:[phone] Performed By: #### 1 8734175, 3459974539, 2909887780, 9888596954, 49779833, 0062352 #### [facility] (DEFAULT) [address] [place] [address] Nicotine LC <1.0 Invalid Interpretation Code [facility] Comment on above: Result Comment: This test was developed and its performance characteristics determined by [facility]. It has not been cleared or approved by the Food and Drug Administration. Nicotine levels greater than 2.0 are consistent with the use of tobacco or tobacco cessation products. Performed By: #### 1 8825556, 7396410018, 3603263074, 9816545365, 44791149, 3006294 #### [facility] (DEFAULT) [address] [place] [address] 22956 .Auto Diff 1on 04-10-2020 Auto [place] % 8 % Normal 1-12 [facility] Comment on above: Performed By: #### 7 905470, 39751943, 8661662541, 8862448530, 4524735568, 24593964 #### [facility] (DEFAULT) [address] [place] [address] 22339 Baso Abs# 0.0 x10 Normal 0.0-0.2 [facility] Comment on above: Performed By: #### 7 212233, 65475993, 1537184667, 9629234242, 8110041073, 53433139 #### [facility] (DEFAULT) [address] [place] [address] Basophils/100 WBC (Bld) 0.6 % Normal 0.2-2.0 [facility] Comment on above: Performed By: #### 7 494700, 33655573, 0113909433, 8378396078, 6155339530, 76436952 #### [facility] (DEFAULT) [address] [place] [address] Eos Abs# 0.7 x10 High 0.0-0.4 [facility] Comment on above: Performed By: #### 7 516236, 25706114, 5337547501, 9207056917, 9613804117, 36995093 #### [facility] (DEFAULT) [address] [place] [address] Eosinophils/100 WBC (Bld) 13.1 % High 0.9-4.0 [facility] Comment on above: Performed By: #### 7 140061, 88024826, 2371965607, 6320753665, 7427588574, 46975923 #### [facility] (DEFAULT) [address] [place] [address] 86930 Lymph Abs# 1.8 x10 Normal 1.3-2.9 [facility] Comment on above: Performed By: #### 7 193815, 68613129, 1973309408, 9604006796, 9544824560, 51923802 #### [facility] (DEFAULT) [address] [place] [address] 64769 Lymphocytes/100 WBC (Bld) 33 % Normal 14-48 [facility] Comment on above: Performed By: #### 7 418114, 68746185, 8523222443, 4611297945, 6418888331, 37919963 #### [facility] (DEFAULT) [address] [place] [address] 89636 [place] Abs# 0.4 x10 Normal 0.0-0.8 [facility] Comment on above: Performed By: #### 7 481047, 52991906, 0506469436, 0158930509, 5362368079, 01532087 #### [facility] (DEFAULT) [address] [place] [address] Neut Abs# 2.4 x10 Normal 1.5-9.2 [facility] Comment on above: Performed By: #### 7 201449, 60984719, 3755462667, 6981569201, 4198350991, 42794125 #### [facility] (DEFAULT) [address] [place] [address] 16910 Neutrophils/100 WBC (Bld) 45 % Normal 44-88 [facility] Comment on above: Performed By: #### 7 515054, 93623866, 1280988826, 9415513473, 4691335826, 82771266 #### [facility] (DEFAULT) [address] [place] [address] 10283 CBC w/ Auto Diffon Erythrocyte distribution width (RBC) [Ratio] 13.4 % Normal 11.5-15.0 [facility] Comment on above: Performed By: #### 7 511800, 94676699, 5366690615, 2576625866, 7558092683, 35548739 #### [facility] (DEFAULT) [address] [place] [address] 55077 Hematocrit (Bld) [Volume fraction] 38.4 % Normal 33.7-40.4 [facility] Comment on above: Performed By: #### 7 461156, 09526200, 5789590495, 1109634631, 5452265040, 22287723 #### [facility] (DEFAULT) [address] [place] [address] 58991 Hemoglobin (Bld) [Mass/Vol] 12.6 g/dL Normal 11.3-15.9 [facility] Comment on above: Performed By: #### 7 143444, 09505792, 8770713155, 6209758042, 9731980913, 30412870 #### [facility] (DEFAULT) [address] [place] [address] 97273 Instr WBC 5.3 x10 Invalid Interpretation Code [facility] Comment on above: Performed By: #### 7 411561, 94346333, 3174606237, 5589510377, 1504308803, 45150508 #### [facility] (DEFAULT) [address] [place] [address] 14756 Man Diff? Auto Normal [facility] Comment on above: Performed By: #### 7 137585, 38669026, 0782934644, 5402121066, 7406783754, 40401240 #### [facility] (DEFAULT) [address] [place] [address] 06848 MCH (RBC) [Entitic mass] 29 pg Normal 24-34 [facility] Comment on above: Performed By: #### 7 581647, 26722492, 1624855178, 1171337619, 7136069196, 84691682 #### [facility] (DEFAULT) [address] [place] [address] MCHC (RBC) [Mass/Vol] 33 g/dL Normal 26-37 [facility] Comment on above: Performed By: #### 7 810474, 48173362, 6934624609, 6015134363, 2720418966, 11461464 #### [facility] (DEFAULT) [address] [place] [address] 02062 MCV (RBC) [Entitic vol] 89 fL Normal 81-100 [facility] Comment on above: Performed By: #### 7 277207, 23476552, 2906905047, 2349785473, 4154814577, 49560930 #### [facility] (DEFAULT) [address] [place] [address] 74264 Platelet 270 x10 Normal 138-427 [facility] Comment on above: Performed By: #### 7 059310, 26218467, 5608074181, 2335400949, 9882431661, 63672280 #### [facility] (DEFAULT) [address] [place] [address] 00484 Platelet mean volume (Bld) [Entitic vol] 10.1 fL Normal 6.3-10.2 [facility] Comment on above: Performed By: #### 7 134941, 30819357, 9725343921, 0619385770, 3944622059, 13070495 #### [facility] (DEFAULT) [address] [place] [address] RBC 4.32 x10 Normal 3.70-5.30 [facility] Comment on above: Performed By: #### 7 126697, 18179198, 6327227682, 8856061020, 1993682004, 59022865 #### [facility] (DEFAULT) [address] [place] [address] WBC 5.3 x10 Normal 3.5-10.5 [facility] Comment on above: Performed By: #### 7 000977, 60659255, 6078353314, 2335280210, 4501527275, 67700975 #### [facility] (DEFAULT) [address] [place] [address] Standardon 04-10-2020 eGFR Non AA >60 Invalid Interpretation Code [facility] Comment on above: Performed By: #### 7 499125, 71322972, 3356362836, 2524409346, 5392816484, 59405323 #### [facility] (DEFAULT) [address] [place] [address] eGFR AA >60 Invalid Interpretation Code [facility] Comment on above: Result Comment: Vise Hand roddy Kidney disease could be indicated at eGFRs of less than 60 ml/min/1.73m2. Kidney Failure is indicated at less than 15 ml/min/1.73m2 Performed By: #### 7 749656, 44241736, 5484508808, 5472577293, 3961932466, 78311037 #### [facility] (DEFAULT) [address] [place] [address] Albumin [Mass/Vol] 3.8 g/dL Normal 3.5-5.0 [facility] Comment on above: Performed By: #### 7 654381, 32934744, 4677876404, 6134046316, 8070336677, 47375489 #### [facility] (DEFAULT) [address] [place] [address] Albumin/Globulin [Mass ratio] 1.1 {ratio} Low 1.4-2.6 [facility] Comment on above: Performed By: #### 7 020709, 12683991, 4602640901, 3385695807, 1173915931, 17958259 #### [facility] (DEFAULT) [address] [place] [address] 76347 Alk Phos 40 IU/L Normal 32-91 [facility] Comment on above: Performed By: #### 7 590914, 77518595, 4259331092, 6915270363, 7080381979, 16113789 #### [facility] (DEFAULT) [address] [place] [address] ALT [Catalytic activity/Vol] 13.0 U/L Low 14.0-54.0 [facility] Comment on above: Performed By: #### 7 169972, 05689871, 5728232808, 7319627036, 4226142363, 07710425 #### [facility] (DEFAULT) [address] [place] [address] Anion gap [Moles/Vol] 11.0 mmol/L Normal 5.0-19.0 [facility] Comment on above: Performed By: #### 7 [id number], [id number], [id number], [id number], [id number], [id number] #### [facility] (DEFAULT) [address] [place] [address] AST [Catalytic activity/Vol] 19 U/L Normal 15-41 [facility] Comment on above: Performed By: #### 7 [id number], [id number], [id number], [id number], [id number], [id number] #### [facility] (DEFAULT) [address] [place] [address] 22926 Bili Total 1.1 mg/dL Normal 0.3-1.2 [facility] Comment on above: Performed By: #### 7 [id number], [id number], [id number], [id number], [id number], [id number] #### [facility] (DEFAULT) [address] [place] [address]8533 Calcium [Mass/Vol] 9.1 mg/dL Normal 8.9-10.3 [facility] Comment on above: Performed By: #### 7 [id number], [id number], [id number], [id number], [id number], [id number] #### [facility] (DEFAULT) [address] [place] [address] 42520 Chloride [Moles/Vol] 107 mmol/L Normal 101-111 [facility] Comment on above: Performed By: #### 7 011632, [id number], [id number], [id number], [id number], [id number] #### [facility] (DEFAULT) [address] [place] [address] 08467 CO2 [Moles/Vol] 23 mmol/L Normal 21-32 [facility] Comment on above: Performed By: #### 7 [id number], [id number], [id number], [id number], [id number], [id number] #### [facility] (DEFAULT) [address] [place] [address]9217 Creatinine [Mass/Vol] 0.75 mg/dL Normal 0.60-1.30 [facility] Comment on above: Performed By: #### 7 798455, [id number], [id number], [id number], [id number], [id number] #### [facility] (DEFAULT) [address] [place] [address] 54130 Globulin (S) [Mass/Vol] 3.4 g/dL Normal 1.5-4.3 [facility] Comment on above: Performed By: #### 7 043997, [id number], [id number], [id number], [id number], [id number] #### [facility] [facility] (DEFAULT) [address] [place] [address]75 Glucose [Mass/Vol] 98.0 mg/dL Normal 74.0-118.0 [facility] Comment on above: Performed By: #### 7 [id number], [id number], [id number], [id number], [id number], [id number] #### [facility] (DEFAULT) [address] [place] [address]751 Osmolality 276 mOsm/L Invalid Interpretation Code [facility] Comment on above: Performed By: #### 7 [id number], [id number], [id number], [id number], [id number], [id number] #### [facility] (DEFAULT) [address] [place] [address] 58823 Potassium [Moles/Vol] 4.0 mmol/L Normal 3.6-5.1 [facility] Comment on above: Performed By: #### 7 [id number], [id number], [id number], [id number], [id number], [id number] #### [facility] (DEFAULT) [address] [place] [address] 51944 Protein [Mass/Vol] 7.2 g/dL Normal 6.5-8.1 [facility] Comment on above: Performed By: #### 7 [id number], [id number], [id number], [id number], [id number], [id number] #### [facility] (DEFAULT) [address] [place] [address] 63765 Sodium [Moles/Vol] 137.0 mmol/L Normal 136.0-144.0 [facility] Comment on above: Performed By: #### 7 [id number], [id number], [id number], [id number], [id number], [id number] #### [facility] (DEFAULT) [address] [place] [address] 74068 Urea nitrogen [Mass/Vol] 20 mg/dL Normal 8-26 [facility] Comment on above: Performed By: #### 7 [id number], [id number], [id number], [id number], [id number], [id number] #### [facility] (DEFAULT) [address] [place] [address] 25520 Urea nitrogen/Creatinin e [Mass ratio] 27.0 mg/mg High 4.6-16.2 [facility] Comment on above: Performed By: #### 7 [id number], [id number], [id number], [id number], [id number], [id number] #### [facility] (DEFAULT) [address] [place] [address] 05530 HgbA1c Standardon 04-10-2020 .Hb 14.7 Invalid Interpretation Code [facility] Comment on above: Performed By: #### 1 [id number], [id number], [id number], [id number], [id number], [id number] #### [facility] (DEFAULT) [address] [place] [address] 78216 .Hgb A1c 0.51 g/dL Invalid Interpretation Code [facility] Comment on above: Performed By: #### 1 [id number], [id number], [id number], [id number], [id number], [id number] #### [facility] (DEFAULT) [address] [place] [address] Glucose [Mass/Vol] 106 mg/dL Invalid Interpretation Code [facility] Comment on above: Performed By: #### 1 [id number], [id number], [id number], [id number], [id number], [id number] #### [facility] (DEFAULT) [address] [place] [address] HbA1c (Bld) [Mass fraction] 5.3 % Normal 4.6-6.2 [facility] Comment on above: Performed By: #### 1 [id number], [id number], [id number], [id number], [id number], [id number] #### [facility] (DEFAULT) [address] [place] [address] 03979 Lipid Panel Standardon 04-10 Cholesterol [Mass/Vol] 162.0 mg/dL Normal 66.0-200.0 [facility] Comment on above: Result Comment: Rosalind rable - Less than 200 mg/dL Borderline high risk - 200-239 mg/dL High risk - 240 mg/dL and over. Performed By: #### 7 [id number], [id number], [id number], [id number], [id number], [id number] #### [facility] (DEFAULT) [address] [place] [address] 05053 Cholesterol in HDL [Mass/Vol] 64 mg/dL Normal 40-71 [facility] Comment on above: Result Comment: High risk - <40 mg/dL. Performed By: #### 7 [id number], [id number], [id number], [id number], [id number], [id number] #### [facility] (DEFAULT) [address] [place] [address] 79526 Cholesterol in LDL [Mass/Vol] 90 mg/dL Normal 1-100 [facility] Comment on above: Result Comment: Opti mal - Less than 100 mg/dL Borderline high risk - 130-159 mg/dL High risk - 160-189 mg/dL. Performed By: #### 7 [id number], [id number], [id number], [id number], [id number], [id number] #### [facility] (DEFAULT) [address] [place] [address] 32619 Cholesterol.total/ Cholesterol in HDL [Mass ratio] 2.5 {ratio} Normal 0.0-4.5 [facility] Comment on above: Performed By: #### 7 [id number], [id number], [id number], [id number], [id number], [id number] #### [facility] (DEFAULT) [address] [place] [address] 13699 Triglyceride [Mass/Vol] 38.0 mg/dL Normal 0.0-150.0 [facility] Comment on above: Performed By: #### 7 [id number], [id number], [id number], [id number], [id number], [id number] #### [facility] (DEFAULT) [address] [place] [address] 53643 VLDL. 8 mg/dL Normal 5-40 [facility] Comment on above: Performed By: #### 7 [id number], [id number], [id number], [id number], [id number], [id number] #### [facility] (DEFAULT) [address] [place] [address] 60324 Vital Signs Date Time Vital Sign Value Performing Clinician Silvina dewitt 08-30-2023 14:03-0400 Blood Pressure Location Anup JOHNSTON [facility] [place] 08-30-2023 14:03-0400 Diastolic blood pressure 78 mm[Hg] Anup JOHNSTON [facility] 08-30-2023 14:03-0400 Heart rate 72 /min Anup NILL [facility] [place] 08-30-2023 14:03-0400 Respiratory rate 16 /min Anup NILL [facility] [place] 08-30-2023 14:03-0400 Systolic blood pressure 116 mm[Hg] Anup NILL [facility] [place] Encounters Encounter Date Encounter Type Care Provider Facility Start: 08-30-2023 End: 08-31-2023 ambulatory Anup R KATHARINEL Facility:[facility] Start: 08-30-2023 End: 08-30-2023 Patient encounter procedure Anup Frias NILL [facility] Start: 08-16-2023 ambulatory Anup JOHNSTON Facility:[facility] Start: 06-26-2023 End: 06-26-2023 ambulatory TRISTON WALKER Not Available Start: 11-11-2022 End: 11-12-[address] STEVE DAS . Facility: Start: 11-05-2022 Encounter for genera l adult medical examination without abnormal findings DR GABRIEL LEAHY [facility] Start: 11-01-2022 End: 11-02-[address] GABRIEL LEAHY Facility: Start: 11-01-2022 End: 11-02-2022 Encounter for general adult medical examination without abnormal findings DR GABRIEL LEAHY Facility: Start: 06-23-2022 End: 06-23-[address] STEVE DAS . Facility: Procedures Date Procedure Procedure Detail Performing Clinician Start: 11-02-2016 Colonoscopy Anup NI LL Start: 11-02-2016 Esophagogastroduodenoscopy Anup NILL Start: 01-19-2011 Colonoscopy Anup NI LL Start: 01-19-2011 Esophagogastroduodenoscopy Anup NILL section Anup NIL L Cholecystectomy Anup JOHNSTON Excision of ganglion of foot Anup JOHNSTON Immunizations Immunization Date Immunization Notes Care Provider Kat delgado 03-19-2023 influenza virus vaccine, unspecified formulation Anup JOHNSTON [facility] [place] 05-05-2021 SARS-CoV-2 (COVID-19 ) Ad26 vaccine, recombinant Anup JOHNSTON [facility] [place] Comment on above: Result Comment: 2023: [id number] Payers Date Payer Category Payer Unknown [id number] 1970 Unknown [id number] 2.16.84 [id number] 1970 Unknown [id number] 2.16.84 [id number] 1970 Unknown [id number] 2.16.84 [id number] 1970 Unknown [id number] 2.16.84 [id number] 1970 Unknown [id number] 2.16.8 [id number] Unknown [id number] Social History Date Type Detail Facility Start: 08-30-2023 Tobacco smoking status Ex-smoker (fi nding) [facility] [place] Tobacco smoking status Never [facility] [place] Sex Assigned At Female [facility] Functional Status Date Assessment Result Facility 08-30-2023 Functional Status N/A [facility]-30-2023 Note Date & Type Note Facility 08-30-2023 Note Chief Complaint consultation for [facility] Staff 52 year old female presents on self referral consultation for heartburn. Reports several week history of stated complaint. Denies indigestion or abdominal pain. Reports occasional nausea; denies vomiting. Patient with history of gastric ulcer x 2. Has been taking Protonix 20mg daily for several years, she continues this. History of Present Illness 52 yo female with h/o hypothyroidism, referred for epigastric pain/GERD; h/o multiple gastric ulcers, last in 2017, EGD revealed > 1cm ulcer; treated with PPI, stopped therapy after 1 year; started developing worsening GERD, primarily during the day, intermittent nausea, occasional epigastric pain, no emesis, no melena, no bowel changes; last colonoscopy 2017 with mild sigmoid diverticulosis; abd operations significant for x 2; no asa or NSAID use; no tobacco use; no fmhx of GI malignancy or IBD. Review of Systems PHQ Score Initial Depression Screen Score: 0 SCORE ROS - Provider Constitutional: no fever, no sweats, no weight loss. Eyes: no glasses, no blurred vision, no visual loss. ENMT: no dentures, no hoarseness, no swallowing difficulties, no hearing loss, no ear infection(s), no nose bleeds. Cardiovascular: normal blood pressure, no chest pain, regular heartbeat, no heart murmur. Respiratory: no shortness of breath, no cough, no asthma, no wheezing. Gastrointestinal: no nausea, no vomiting, no diarrhea, no constipation, no blood in stool, no change in bowel habits, no abdominal pain, no hepatitis. Genitourinary: no kidney stones, no urine infection, no dysuria. Musculoskeletal: no pain, no weakness. Skin: no changing moles, no rash, no skin lumps. Neurologic: no seizures, no epilepsy, no headache. Psychiatric: no emotional or psychiatric problem. Heme/Lymph: no bleeding problems, no anemia, no blood clots, no transfusions. Allergy/Immunologic: no swollen lymph nodes/glands, no IV drug abuse. Other: Additional ROS info: Except as noted in the above Review of Systems and in the History of Present Illness, all other systems have been reviewed and are negative or noncontributory. ;gs Physical Exam Vitals & Measurements HR: 72(Peripheral) RR: 16 BP: 116/78 HT: 64 in HT: 163 cm WT: 59.8 kg WT: 131.56 lb BMI: 22.51 HEENT: normal conjunctiva, sclera clear, no scleral icterus, EOM intact, PERRLA, oral mucosa moist without lesions. Neck: trachea midline, no mass, symmetric, no thyromegaly or nodules, no adenopathy Respiratory: lungs CTA, respirations non labored. Cardiovascular: regular rate and rhythm, no murmur, no pedal edema or varicosities. Gastrointestinal: soft, non distended, no tenderness, no masses, no palpable hernias, diastasis recti no, no hepatosplenomegaly; normal bs Lymphatic: no cervical adenopathy, nosupraclavicular adenopathy. Musculoskeletal: normal gait, digits and nails without infection, nodes, cyanosis, clubbing. Skin: no rashes, no lesions, no ulcers, no subcutaneous nodules, induration. Psychiatric/Neuro: oriented to time, place, person, judgement normal, affect appropriate for age, insight intact, no focal deficits. Tests: , review of old records completed , Discussed surgical options, risks, and possible complications with patient. Assessment/Plan 1. Chronic GERD (K21.9: Gastro-esophageal reflux disease without esophagitis) increase Protonix to 40 mg per day; plan EGD with anesthesia; informed consent obtained. 2. Epigastric pain (R10.13: Epigastric pain) see # 1 3. History of gastric ulcer (Z87.11: Personal history of peptic ulcer disease) see # 1 Follow-up No qualifying data available Problem List/Past Medical History Ongoing BMI 22.0-22.9, adult Chronic GERD Diverticulosis Epigastric pain History of gastric ulcer History of gastritis Hypothyroidism Historical No qualifying data Procedure/Surgical History Colonoscopy (11/02/2016), EGD - esophagogastroduodenoscopy (11/02/2016), Colonoscopy (01/19/2011), EGD - esophagogastroduodenoscopy (01/19/2011), section, section, Cholecystectomy, Excision of ganglion cyst of foot. Medications Multi Vitamins oral tablet, 1 tab(s), Oral, Daily Protonix 20 mg Tab-DR, 20 mg= 1 tab(s), Oral, Daily Synthroid 88 mcg Tab, 88 mcg= 1 tab(s), Oral, Daily Allergies No Known Allergies No Known Medication Allergies Social History Alcohol - Denies Alcohol Use, 08/30/2023 Substance Abuse - Denies Substance Abuse, 08/30/2023 Tobacco Former smoker, quit more than 30 days ago Tobacco Use:. Never Smokeless Tobacco Use:. Cigarettes, 0.25 per day. Started age 18.0 Years. Stopped age 36 Years., 08/30/2023 Family History Primary malignant neoplasm of female breast: Mother. Immunizations Vaccine Date Status Comments influenza virus vaccine, inactivated 03/2023 Recorded SARS-CoV-2 (COVID-19) Ad26 vaccine 05/05/2021 Recorded 2023-08-21: [id number] [facility] Comment on above: Result Comment: Elec tronically Signed By: PRESTON ROSALES, Anup Ernst\Date and Time Signed: 08/30/23 16:41 EDT Evaluation + Plan note Note Date & Type Note Facility Evaluation + Plan note No data available for this section [facility] [place] [facility] Discharge instructions Note Date & Type Note Facility Hospital Discharge instructions No data available for this section [facility] [place] Progress note Note Date & Type Note Facility Progress note No data available for this section [facility] [place] Summary Purpose Family History No Family History Records FoundNo Family History Records FoundNo Family History Records Found No data available for this section No Family History Records Found Advance Directives No Advanced Directives Records FoundNo Advanced Directives Records FoundNo Advanced Directives Records FoundNo Advanced Directives Records Found Additional Source Comments INFORMATION SOURCE (unrecogn ized section and content) DATE CREATED AUTHOR 04/04/2021 [facility] DATE CREATED AUTHOR AUTHOR'S ORGANIZ ATION 11/25/2022 [facility] DATE CREATED AUTHOR AUTHOR'S ORGANIZ ATION 06/27/2023 [facility] EPIC DATE CREATED AUTHOR AUTHOR'S ORGANIZ ATION 10/07/2023 [facility] Patient Care team informatio n (unrecognized section and content) Personnel Name: GABRIEL LEAHY MD Address: Address: [address] [place] [address] FOR RECORDS PERTAINING TO PATIENTS WHO ARE [...] BE BASED ON THE PRIMARY CLINICAL RECORDS. [facility] provides no warranty or guarantee of the accuracy or completeness of information in this document.
[2023-10-11 06:35] VITALS: BP 121/64; PULSE 68; TEMP 36.4; O2SAT 99; BMI 22.5
[2023-10-11 06:54] LABS: HCG Qualitative NEGATIVE (NEGATIVE)
[2023-10-11] MEDS: LACTATED RINGER'S SOLUTION 1,000 ML 50 ML IV (07:02)
[2023-10-11 07:36] VITALS: BP 103/54; PULSE 59; O2SAT 100
[2023-10-11 07:55] VITALS: BP 98/56; PULSE 56; O2SAT 98
== END 2023-10-11 08:06 | disposition home or self-care (01) ==
PROVIDERS: PCP Family Medicine; Visit Provider Surgery
PROC: (CPT 731; principal; 2023-10-11 07:30)
DX: K21.9 Gastro-esophageal reflux disease without esophagitis (principal); K25.7 Chronic gastric ulcer without hemorrhage or perforation; Z87.11 Personal history of peptic ulcer disease; R10.13 Epigastric pain; K44.9 Diaphragmatic hernia without obstruction or gangrene; E03.9 Hypothyroidism, unspecified; Z90.49 Acquired absence of other specified parts of digestive tract; Z87.891 Personal history of nicotine dependence
CPT/HCPCS: 43239; 36415; 84703; 88305; 88342; 99999; J2704

== ENCOUNTER 2023-11-07 09:17 | Outpatient (OUT) | payer BC, SELFPAY ==
[2023-11-07 10:25] LABS: Estimated Average Glucose 105 mg/dL; Glycohemoglobin A1C 5.3 % (4.5-6.2)
[2023-11-07 10:26] LABS: Free T3 2.33 pg/mL (2.18-3.98); Glucose 88 mg/dL (74-106); Thyroid Stimulating Hormone 2.126 uIU/mL (0.358-3.740)
[2023-11-07 10:42] LABS: Free T4 0.96 ng/dL (0.76-1.46)
[2023-11-08 04:09] LABS: DHEA-Sulfate 79.4 ug/dL (41.2-243.7); Progesterone 0.5 ng/mL (.)
[2023-11-08 08:13] LABS: C-Peptide, Serum 1.4 ng/mL (1.1-4.4); Insulin 3.5 uIU/mL (2.6-24.9)
[2023-11-08 17:07] LABS: Thyroglobulin Antibody 933.8 IU/mL (0.0-0.9); Thyroid Peroxidase (TPO) Ab 382 IU/mL (0-34)
[2023-11-10 16:10] LABS: Estrone, Serum 106 pg/mL (.)
== END 2023-11-07 09:18 | disposition home or self-care (01) ==
LOC: LAB 09:18
PROVIDERS: PCP Family Medicine; Visit Provider Obstetrics & Gynecology
DX: E34.9 Endocrine disorder, unspecified (principal)
CPT/HCPCS: 36415; 82306; 82530; 82627; 82670; 82679; 82728; 82947; 83036; 83525; 84144; 84260; 84270; 84402; 84403; 84432; 84436; 84439; 84443; 84481; 84482; 84681; 86376; 86800

== ENCOUNTER 2023-11-14 09:28 | Outpatient (OUT) | payer BC, SELFPAY ==
[2023-11-14 10:20] LABS: Basophils Absolute Auto 0.1 10^3/uL (0.0-0.1); Basophils Percent Auto 0.8 % (0.2-2.0); Eosinophils Percent Auto 11.7 % (0.9-7.0); Hematocrit 39.6 % (36.0-48.0); Hemoglobin 13.2 g/dL (12.0-16.0); Immature Granulocytes Abs Auto 0.02 10^3/uL (0.00-0.03); Immature Granulocytes Pct Auto 0.2 % (0.0-0.5); Lymphocytes Absolute Auto 1.7 10^3/uL (1.2-3.8); Lymphocytes Percent Auto 20.5 % (20.5-60.0); Mean Corpuscular HGB Conc 33.3 g/dL (29.9-35.2); Mean Corpuscular Hemoglobin 31.7 pg (26.7-34.0); Mean Corpuscular Volume 95.2 fL (81.0-99.0); Mean Platelet Volume 10.3 fL (9.5-13.5); Monocytes Absolute Auto 0.5 10^3/uL (0.3-0.8); Monocytes Percent Auto 5.5 % (1.7-12.0); Neutrophils Absolute Auto 5.2 10^3/uL (1.4-6.5); Neutrophils Percent Auto 61.3 % (43.0-75.0); Platelet Count 235 10^3/uL (150-450); Red Blood Count 4.16 10^6/uL (4.20-5.40); White Blood Count 8.4 10^3/uL (4.0-11.0)
[2023-11-14 10:47] LABS: Alanine Aminotransferase 16 U/L (14-59); Albumin Level 3.4 g/dL (3.4-5.0); Alkaline Phosphatase 51 U/L (46-116); Anion Gap 11.3; Aspartate Amino Transferase 21 U/L (15-37); BUN Creatinine Ratio 25.9; Bilirubin Total 1.1 mg/dL (0.2-1.0); Calcium 8.7 mg/dL (8.5-10.1); Carbon Dioxide 27.1 mmol/L (21.0-32.0); Chloride 103 mmol/L (98-107); Chol HDL Ratio 2.2; Cholesterol 177 mg/dL (<=200); Estimated GFR (African America >60 (>=60); Estimated GFR (Non-African Ame >60 (>=60); Globulin 3.4 g/dL; Glucose 92 mg/dL (74-106); HDL Cholesterol 79 mg/dL (40-60); Potassium 4.4 mmol/L (3.5-5.1); Sodium 137 mmol/L (136-145); Total Protein 6.8 g/dL (6.4-8.2); Triglycerides 51 mg/dL (<=150); VLDL CHOLESTEROL 10.2 mg/dL
== END 2023-11-14 09:29 | disposition home or self-care (01) ==
LOC: LAB 09:29
PROVIDERS: PCP Family Medicine; Visit Provider Family Medicine
DX: Z00.00 Encounter for general adult medical examination without abnormal findings (principal)
CPT/HCPCS: 36415; 80053; 80061; 85025

== ENCOUNTER 2023-11-20 08:49 | Outpatient (OUT) | payer BC, SELFPAY ==
--- NOTE | 2023-11-20 08:53 | MM_ITS ---
Patient Name: ANATOLIY STUART MR#: [id number] : 1970 Exam Date: 11/20/2023 Ordering Doctor: DR Agapito Velazquez . RADIOLOGY REPORT PROCEDURE: MM TOMOSYNTHESIS SCREENING BI COMPARISON: MG MAMM SCREEN 3D CHRISTAL CAD, 11/11/2022. MG MAMM SCREEN 3D CHRISTAL CAD, 11/10/2021. MG MAMM SCREEN 3D CHRISTAL CAD, 10/28/2020. MG MAMM CHRISTAL SCRN W CAD DIG, 10/31/2012. INDICATIONS: Screening Calculator Name NCI Breast Cancer Risk Assessment Tool 5 Year Breast Cancer Risk 2.10% Lifetime Breast Cancer Risk 16.30% Personal Breast Cancer No Personal Ovarian Cancer No Treatments None Family Cancers Grandmother-paternal with breast cancer at age 70; Grandmother-maternal with colon/stomach cancer at age 60; Mother with breast cancer at age 68. LOCATION: [facility] BREAST COMPOSITION: The breasts are extremely dense, which lowers the sensitivity of mammography. FINDINGS: DIAGNOSTIC CATEGORY 2--BENIGN FINDING: RIGHT BREAST: No significant suspicious finding. Scattered benign-appearing calcifications are present. Stable, chronic 1 cm dense mass versus cyst within lower-inner quadrant. No significant change has occurred. LEFT BREAST: No significant suspicious finding. Scattered benign-appearing calcifications are present. No significant change has occurred. RECOMMENDATIONS: ROUTINE MAMMOGRAM AND CLINICAL EVALUATION IN 12 MONTHS. PLEASE NOTE: A NORMAL MAMMOGRAM DOES NOT EXCLUDE THE POSSIBILITY OF BREAST CANCER. A CLINICALLY SUSPICIOUS PALPABLE LUMP SHOULD BE BIOPSIED. Dictated by: Andres Foreman M.D. on 11/23/2023 at 13:24 Approved by: Andres Foreman M.D. on 11/23/2023 at 13:30
== END 2023-11-20 08:50 | disposition home or self-care (01) ==
LOC: MAMMO 08:49
PROVIDERS: PCP Family Medicine; Visit Provider Obstetrics & Gynecology
DX: Z12.31 Encounter for screening mammogram for malignant neoplasm of breast (principal); Z80.3 Family history of malignant neoplasm of breast; Z80.0 Family history of malignant neoplasm of digestive organs
CPT/HCPCS: 77063; 77067

== ENCOUNTER 2024-02-07 13:16 | Outpatient (OUT) | payer BC, SELFPAY | END 2024-02-07 13:17 | disposition home or self-care (01) | LOC: PST 13:16 | PROVIDERS: PCP Family Medicine; Visit Provider Surgery | DX: Z01.818 Encounter for other preprocedural examination (principal); K25.9 Gastric ulcer, unspecified as acute or chronic, without hemorrhage or perforation ==

== ENCOUNTER 2024-02-14 09:23 | Day surgery (SDC) | payer BC, SELFPAY ==
--- NOTE | 2024-02-14 | OP_ITS ---
OPERATION DATE: 02/14/2024 PREOPERATIVE DIAGNOSIS: History of antral ulcer. POSTOPERATIVE DIAGNOSIS: History of antral ulcer with healing antral ulcer, mild distal esophagitis. PROCEDURE: EGD with biopsy of healing antral ulcer. SURGEON: Anup Pearl M.D. ANESTHESIA: Monitored anesthesia care. ESTIMATED BLOOD LOSS: Less than 2 mL. INDICATIONS AND CONSENT: Patient is a 53-year-old female with remote history of ulcer. She recently had a recurrent antral ulcer approximately four months ago. She has been on b.i.d. PPI as well as Carafate with improvement in symptoms. Now presents for follow up EGD to document the healing of the ulcer. Indications, risks, benefits, alternatives of proceeding with EGD were explained extensively to the patient, including the risks of bleeding, aspiration, esophageal/gastric/duodenal perforation or anesthetic complications. All of her questions were answered. Informed consent was obtained. PROCEDURE: Patient brought to the operating room, placed in the left lateral decubitus position. Monitored anesthesia care was provided. Bite block was placed in the patient?s mouth. Scope was inserted into the oropharynx. Under direct visualization, it was advanced into the esophagus, past the cricopharyngeus, down to the stomach. The stomach was insufflated with air. The pylorus was noted to be somewhat spastic. It was able to be traversed down to the descending portion of the duodenum. There was no evidence of duodenitis or ulceration. No scarring within the pyloric channel. There was spasm however. Right in the prepyloric area, there was noted to be a healing ulcer with still some friability and some exudate. No ulcer crater. Still inflammation and was not completely epithelialized over. Several biopsies were obtained with pediatric cold biopsy forceps with good hemostasis. Scope was retroflexed. There was no significant hiatal hernia. The GE junction was noted at approximately 37 cm. There was some mild distal esophagitis with no Lawson?s changes. The remainder of the esophagus was unremarkable. The scope was then withdrawn. Patient tolerated procedure well, was sent to recovery room in good condition. CC: Tess Nunn M.D. MARRY
[2024-02-14 09:30] VITALS: BP 122/71; PULSE 70; TEMP 36.2; O2SAT 99; BMI 22.3
[2024-02-14 09:31] LABS: Basophils Absolute Auto 0.1 10^3/uL (0.0-0.1); Eosinophils Absolute Auto 1.2 10^3/uL (0.0-0.7); Hematocrit 43.1 % (36.0-48.0); Hemoglobin 14.4 g/dL (12.0-16.0); Immature Granulocytes Abs Auto 0.01 10^3/uL (0.00-0.03); Immature Granulocytes Pct Auto 0.2 % (0.0-0.5); Mean Corpuscular HGB Conc 33.4 g/dL (29.9-35.2); Mean Corpuscular Hemoglobin 31.8 pg (26.7-34.0); Mean Corpuscular Volume 95.1 fL (81.0-99.0); Mean Platelet Volume 10.1 fL (9.5-13.5); Monocytes Absolute Auto 0.5 10^3/uL (0.3-0.8); Neutrophils Absolute Auto 2.4 10^3/uL (1.4-6.5); Neutrophils Percent Auto 38.8 % (43.0-75.0); Platelet Count 259 10^3/uL (150-450); Red Blood Count 4.53 10^6/uL (4.20-5.40); Red Cell Distribution Width 11.5 % (11.0-15.0); White Blood Count 6.2 10^3/uL (4.0-11.0)
[2024-02-14] MEDS: LACTATED RINGER'S SOLUTION 1,000 ML 50 ML IV (09:54)
[2024-02-14 10:27] LABS: HCG Qualitative Urine* NEGATIVE (NEGATIVE); Internal Control Within Normal Limits
[2024-02-14 10:45] VITALS: BP 92/55; PULSE 55; TEMP 36.3; O2SAT 98
[2024-02-14 11:00] VITALS: BP 98/55; PULSE 55; O2SAT 97
[2024-02-14 11:15] VITALS: BP 108/70; PULSE 50; O2SAT 99
== END 2024-02-14 11:15 | disposition home or self-care (01) ==
PROVIDERS: Anesthesiology; PCP Family Medicine; Visit Provider Surgery
PROC: (CPT 00731; principal; 2024-02-14 10:40)
DX: K25.9 Gastric ulcer, unspecified as acute or chronic, without hemorrhage or perforation (principal); K20.90 Esophagitis, unspecified without bleeding; Z90.49 Acquired absence of other specified parts of digestive tract; Z87.891 Personal history of nicotine dependence; E03.9 Hypothyroidism, unspecified
CPT/HCPCS: 00731; 43239; 36415; 84703; 85025; 88305

== ENCOUNTER 2024-05-14 07:13 | Outpatient (OUT) | payer BC, SELFPAY ==
--- NOTE | 2024-05-14 07:15 | MR_ITS ---
[facility] [place] [id number] Patient Name: ANATOLIY STUART MRN: [id number] date: 1970 Sex: F Assigned Patient Location: MRI Current Patient Location: MRI Accession/Order Number: [id number] Exam Date: 05/14/2024 07:30 Report Date: 05/14/2024 16:40 At the request of: GABRIEL LEAHY Procedure: MR head/brain wo con EXAM: MR head/brain wo con HISTORY: headache COMPARISON: None. . TECHNIQUE: MRI of the brain was performed without contrast. FINDINGS: There is no restricted diffusion to suggest acute infarct. There is no midline shift, mass effect, or abnormal extraaxial fluid collections. The cortical sulci and ventricular system are within normal limits. There are a few nonspecific less than 5 mm T2 bright foci in the randall and supratentorial white matter. The major intracranial flow voids are visualized. The cerebellar tonsils are normal in position. The orbits are unremarkable. There are frothy secretions within the hypoplastic right sphenoid sinus. There are mild mucosal thickening of bilateral maxillary, ethmoid, left frontal sinuses and a mucous retention cyst/polyp within the right posterior ethmoid air cell. The mastoid air cells are clear. The calvarium and extracranial soft tissues are unremarkable. MR/MR head/brain wo con IMPRESSION: No acute intracranial abnormality. A few tiny nonspecific T2/FLAIR bright foci in the randall and supratentorial white matter, statistically most likely based on chronic microvascular ischemia. Paranasal sinus disease with elements of both acute and chronic sinusitis. Recommend clinical correlation. Electronically authenticated by: KELLY UNLU Date: 05/14/2024 16:40
--- OUTSIDE RECORDS SUMMARY | 2024-05-14 07:16 | XMS_ITS | CCD ---
Author Organization [facility] Care Team Providers Care Real Estate Subagent Name Role Phone PIPPA ., DR WILSON Admitting Unavailabl e KARCHIP ., DR WILSON Consulting Unavailabl e KARCHIP ., DR WILSON Attending Unavailklaus e ARMOND, DR TESS Pickard Primary Care Unavailable [place], DR TYLOR Whitney Consulting Unavailable LEAHY, DR TESS Pickard Consulting Unavailable ARMOND, DR TESS Pickard Attending Unavailable ARMOND, DR TESS Pickard Admitting Unavailable ARMOND, DR TESS Pickard Primary Care Unavailable KARCHIP ., DR WILSON Admitting Unavailabl e KARASIK ., DR WILSON Consulting Unavailabl e KARCHIP ., DR WILSON Attending Unavailklaus e ARMOND, DR TESS Pickard Primary Care Unavailable TESS LEAHY Primary Care Physician MD Alis Beth Primary Care Provider MD Anup Pearl Attending Provider [phone] TRISTON WALKER Attending Unavailable GUILHERME ROMO Attending Unavailable MD Tess Leahy Primary Care Provider MD Anup Pearl Attending Provider [phone] Tess Leahy Primary Care Unavailable Anup Pearl Admitting Unavailable Dae, Anup Frias Attending Unavailable Anup Pearl Attending Unavailable Alis Beth Primary Care Unavailable Anup Pearl Admitting Unavailable Anup PEARL Attending Unavailable Anup PEARL Attending Unavailable Anup PEARL Attending Unavailable Tess Leahy MD Primary Care Provider Anup Pearl MD Attending Provider [phone] Allergies Allergy Classification Reported Allergen(s) Allergy Type Date of Onset Reaction(s) Facility (1 source) No Known Medication Allergies; Translations: [No Known Medication Allergies] Propensity to adverse reactions (disorder) [facility] Repository Medications Current Medications Medication Drug Class(es) Dates Sig (Normalized) Sig (Original) levothyroxine sodium 0.088 mg oral tablet (6 sources) l-Thyroxine Start: 01-09-2024 take 1 tablet by mouth once daily in the morning Levothyroxine 88 mcg tablet Active 0 .ROUTE .COMPLEX 90 January 09, 2024 9:41am TAKE 1 TABLET BY MOUTH IN THE MORNING ON AN EMPTY STOMACH ONCE DAILY Start: 11-07-2023 End: 01-09-2024 take 1 capsule by mouth once daily Levothyroxine 88 mcg capsule Discontinued 88 MCG PO Daily November 06, 2023 11:00pm January 09, 2024 9:41am Start: 08-30-2023 take 1 tablet by ronal th once daily Synthroid 88 mcg Tab 88 mcg = 1 tab(s), Oral, Daily, Refills(s) 0 Start Date: 08/30/23 Status: Ordered Multi Vitamins oral tablet (1 source) Start: 08-30-2023 take 1 tablet by mouth once daily Multi Vitamins oral tablet 1 tab(s), Oral, Daily, Refill(s) 0 Start Date: 08/30/23 Status: Ordered pantoprazole 40 mg delayed release oral tablet (4 sources) Proton Pump Inhibitor Start: 11-20-2023 take 1 tablet by mouth twice daily Pantoprazole (Protonix) 40 mg tablet,delayed release (DR/EC) Active 40 MG PO Twice daily November 19, 2023 11:00pm Start: 08-30-2023 take 1 tablet by ronal th once daily Protonix 20 mg Tab-DR 20 mg = 1 tab(s), Oral, Daily, Refills(s) 0 Start Date: 08/30/23 Status: Ordered sucralfate 1000 mg oral tablet (3 sources) Aluminum Complex Start: 11-20-2023 take 1 tablet by mouth once before mealtime Sucralfate (Carafate) 1 gram tablet Active 1 GM PO 3x/Day before meals November 19, 2023 11:00pm Problems Active Problems Problem Classification Problem Date Documented Da te Episodic/Chronic Abdominal pain (2 sources) Epigastric pain; Translations: [Epigastric pain] Onset: Episodic Administrative/social admission (2 sources) Memory finding; Translations: [Person with feared health complaint in whom no diagnosis is made] 11-18-2024 Episodic Diverticulosis and diverticulitis (1 source) Diverticular disease 08-25-2023 Chronic Esophageal disorders (2 sources) Gastroesophageal reflux disease without esophagitis; Translations: [Gastro-esophageal reflux disease without esophagitis] Onset: 4 Chronic Gastroduodenal ulcer (except hemorrhage) (2 sources) H/O: peptic ulcer; Translations: [Personal history of peptic ulcer disease] Onset: 4 Episodic Headache; including migraine (2 sources) Headache; Translations: [Headache] 05-06-2024 Episodic Other gastrointestinal disorders (1 source) History [...] DIGESTIV ORGN] Onset: 3 Episodic Thyroid disorders (6 sources) Hypothyroidism; Translations: [Hypothyroidism, unspecified] Onset: 3 08-30-2023 Chronic Unclassified (1 source) Body mass index 20-24 - normal 08-30-2023 Past or Other Problems Problem Classification Problem Date Documented Date Episodic/Chronic Immunizations and screening for infectious disease (1 source) Encounter for screening for human papillomavirus (HPV); Translations: [ENC SCREENING HUMAN PAPILLOMAVIRUS] Onset: 06-26-2022 Episodic Results Test Name Value Interpretation Reference Range Facility Basophils Auto (Bld) [#/Vol] on 02-14-2024 Basophils (Bld) [#/Vol] Automated basophil count 0.0-0.1 [facility] Basophils/100 WBC Auto (Bld) on 02-14-2024 Basophils/100 WBC (Bld) Automated basophil % 0. 2-2.0 [facility] Eosinophils/100 WBC Auto (Bl d)on 02-14-2024 Eosinophils/100 WBC (Bld) Automated eosinophil % High 0.9-7.0 [facility] Erythrocyte distribution wid th Auto (RBC) [Ratio]on 02-14-2024 Erythrocyte distribution width (RBC) [Ratio] Erythrocyte distribution width [Ratio] by Automated count 11.0-15.0 [facility] HCG ( test) IA.rapi d Ql (U)on 02-14-2024 HCG ( test) Ql (U) Urine human chorionic gonadotropin (hCG) detection by immunoassay NEGATIVE [facility] Hematocrit Auto (Bld) [Volum e fraction]on 02-14-2024 Hematocrit (Bld) [Volume fraction] Hematocrit [Volume Fraction] of Blood by Automated count 36.0-48.0 [facility] Hemoglobin [Mass/volume] in Bloodon 02-14-2024 Hemoglobin (Bld) [Mass/Vol] Hemoglobin [Mass/volume] in Blood 12.0-16.0 [facility] Shahab 02-14-2024 L Specimen: [id number] Received: 02/15/24 [facility] Num: [id number] Spec Type: Surgical Subm Dr: Anup Pearl MD FACS Tissues: A Esophagus Biopsy (ANTRAL ULCER BX) Procedures: HE/2, Gross/Micro L4 Age/ Patient Sex Location Account Attending Physician Ioana Marie 53/F LABELL [id number] Anup Pearl MD FACS SPEC NUM: [id number] RECD: 02/15/24 STATUS: KATIE [facility] NUM: [id number] CARYN: 02/14/[address]: Anup Pearl MD FACS ENTERED: 02/15/[address] [facility] [address]: Prerna Lee SPEC TYPE: Surgical DEPT: JEFRY TRUONG ENTERED BY: [id number] RECV BY: [id number] ORDERED: HE/2, Gross/Micro L4 ORDERED: HE/2, Gross/Micro L4 Pathological Diagnosis Antral ulcer biopsy: -Antral mucosa with apparent peptic chronic gastric ulceration in both fragments, including the associated necrotizing exudate at the surface of ulcer base in 1 smaller fragment, otherwise without malignancy or glandular dysplasia identified -There is focal mild chronic inflammation at ulcer base of the smaller fragment, otherwise without other specific features of Helicobacter infection by routine morphological assessment in the larger and more intact or relatively preserved fragment Clinical Information Healing antral ulcer, mild distal esophagitis, path pending Gross Description The specimen was received in formalin with the patient's name and antral ulcer biopsy and consists of 2 powell soft tissue fragments ranging in size from 0.2 to 0.3 cm. The specimen is entirely submitted in cassette A1. Specimen: [id number] Received: 02/15/24 Status: KATIE [facility] Num: [id number] Spec Type: Surgical Subm Dr: Anup Pearl MD FACS Tissues: A Esophagus Biopsy (ANTRAL ULCER BX) Procedures: HE/Jennifer, Gross/Micro L4 Patient: Ioana Marie [id number] (Continued) Specimen: [id number] Received: 02/15/24 (Continued) Signed (signature on file) Samantha Hirsch MD 02/23/24 0923 Specimen: [id number] Received: 02/15/24 Status: [facility] Num: [id number] Spec Type: Surgical Subm Dr: Anup Pearl MD FACS Tissues: A Esophagus Biopsy (ANTRAL ULCER BX) Procedures: HE/2, Gross/Micro L4 Patient: AníbalmaryIoana [id number] (Continued) Specimen: [id number] Received: 02/15/24 (Continued) Microscopic Description Microscopic examinations are performed supporting the above interpretation CPT Codes 25551 Specimen: [id number] Received: 02/15/24 Status: [facility] Num: [id number] Spec Type: Surgical Subm Dr: Anup Pearl MD FACS Tissues: A Esophagus Biopsy (ANTRAL ULCER BX) Procedures: HE/2, Gross/Micro L4 Patient: Ioana Marie [id number] (Continued) Signed (signature on file) Samantha Hirsch MD 02/23/24922 Normal [facility] Laboratory - Hematology and Cell countson 02-14-2024 Immature granulocytes/100 WBC (Bld) 0.2 % 0.0-0.5 [facility] Leukocytes [#/volume] correc stephanie for nucleated erythrocytes in Blood by Automated counon 02-14-2024 WBC corrected for nucl RBC Auto (Bld) [#/Vol] Leukocytes [#/volume] corrected for nucleated erythrocytes in Blood by Automated coun 4.0-11.0 [facility] Lymphocytes Auto (Bld) [#/Vo l]on 02-14-2024 Lymphocytes (Bld) [#/Vol] Lymphocytes [#/volume] in Blood by Automated count 1.2-3.8 [facility] Lymphocytes/100 WBC Auto (Bl d)on 02-14-2024 Lymphocytes/100 WBC (Bld) Lymphocytes/100 leukocytes in Blood by Automated count 20.5-60.0 [facility] MCH Auto (RBC) [Entitic mass ]on 02-14-2024 MCH (RBC) [Entitic mass] MCH [Entitic mass] by Automated count 26.7-34.0 [facility] MCHC Auto (RBC) [Mass/Vol]on 02-14-2024 MCHC (RBC) [Mass/Vol] MCHC [Mass/volume] by Automated count 29.9-35.2 [facility] MCV Auto (RBC) [Entitic vol] on 02-14-2024 MCV (RBC) [Entitic vol] MCV [Entitic vol ume] by Automated count 81.0-99.0 [facility] Monocytes Auto (Bld) [#/Vol] on 02-14-2024 Monocytes (Bld) [#/Vol] Automated blood monocyte count 0.3-0.8 [facility] Monocytes/100 WBC Auto (Bld) on 02-14-2024 Monocytes/100 WBC (Bld) Automated monocyte % 1. 7-12.0 [facility] Neutrophils Auto (Bld) [#/Vo l]on 02-14-2024 Neutrophils (Bld) [#/Vol] Neutrophils [#/volume] in Blood by Automated count 1.4-6.5 [facility] Neutrophils/100 WBC Auto (Bl d)on 02-14-2024 Neutrophils/100 WBC (Bld) Automated neutrophil % Low 43.0-75.0 [facility] No Panel Informationon 02-13 Eosinophils # (Auto) 1.2 10 3/uL High 0.0-0.7 [facility] Immature Granulocyte # (Auto) 0.01 10 3/uL 0.00-0.03 [facility] Platelet mean volume Auto (B ld) [Entitic vol]on 02-14-2024 Platelet mean volume (Bld) [Entitic vol] Platelet mean volume [Entitic volume] in Blood by Automated count 9.5-13.5 [facility] Platelets Auto (Bld) [#/Vol] on 02-14-2024 Platelets (Bld) [#/Vol] Platelets [#/vol ume] in Blood by Automated count 150-450 [facility] RBC Auto (Bld) [#/Vol]on RBC (Bld) [#/Vol] Erythrocytes [#/volu me] in Blood by Automated count 4.20-5.40 [facility] Basophils Auto (Bld) [#/Vol] on 11-14-2023 Basophils (Bld) [#/Vol] 0.1 10 3/uL 0.0-0.1 [facility] Basophils/100 WBC Auto (Bld) on 11-14-2023 Basophils/100 WBC (Bld) 0.8 % 0.2-2.0 [facility] Cholesterol in LDL Calc [Mas s/Vol]on 11-14-2023 Cholesterol in LDL [Mass/Vol] 88.0 mg/dL [facility] Comment on above: <100 mg/dl [id number] 0-129 mg/dl NEAR OR ABOVE [id number] mg/dl BORDERLINE [id number] mg/dl HIGH>190 mg/dl VERY HIGH Cholesterol in VLDL Calc [Ma ss/Vol]on 11-14-2023 Cholesterol in VLDL [Mass/Vol] 10.2 mg/dL [facility] Eosinophils/100 WBC Auto (Bl d)on 11-14-2023 Eosinophils/100 WBC (Bld) 11.7 % 0.9-7.0 [facility] Erythrocyte distribution wid th Auto (RBC) [Ratio]on 11-14-2023 Erythrocyte distribution width (RBC) [Ratio] 12.0 % 11.0-15.0 [facility] Estimated glomerular filtrat ion rate (GFR) non- Americanon 11-14-2023 GFR/1.73 sq M.predicted among non-blacks MDRD (S/P/Bld) [Vol rate/Area] mL/min/{1.73_m2} >=60 [facility] Globulin Calc (S) [Mass/Vol] on 11-14-2023 Globulin (S) [Mass/Vol] 3.4 g/dL [facility] Hematocrit Auto (Bld) [Volum e fraction]on 11-14-2023 Hematocrit (Bld) [Volume fraction] 39.6 % 36.0-48.0 [facility] Hemoglobin [Mass/volume] in Bloodon 11-14-2023 Hemoglobin (Bld) [Mass/Vol] 13.2 g/dL 12.0-16.0 [facility] Laboratory - Chemistry and C hemistry - challengeon 11-14-2023 Albumin [Mass/Vol] 3.4 g/dL 3.4-5.0 [facility] ALP [Catalytic activity/Vol] 51 U/L 46-116 [facility] ALT [Catalytic activity/Vol] 16 U/L 14-59 [facility] AST [Catalytic activity/Vol] 21 U/L 15-37 [facility] Bilirubin [Mass/Vol] 1.1 mg/dL 0.2-1.0 [facility] Calcium [Mass/Vol] 8.7 mg/dL 8.5-10.1 [facility] Chloride [Moles/Vol] 103 mmol/L 98-107 [facility] Cholesterol [Mass/Vol] 177 mg/dL <=200 [facility] Cholesterol in HDL [Mass/Vol] 79 mg/dL 40-60 [facility] Comment on above: > or =60 mg/dl - LOW CARDIOVASCULAR RISK<40 mg/dl - HIGH CARDIOVASCULAR RISK CO2 [Moles/Vol] 27.1 mmol/L 21.0-32.0 [facility] Creatinine [Mass/Vol] 0.81 mg/dL 0.55-1.02 [facility] GFR/1.73 sq M.predicted MDRD (S/P/Bld) [Vol rate/Area] mL/min/{1.73_m2} >=60 [facility] Glucose [Mass/Vol] 92 mg/dL 74-106 [facility] Potassium [Moles/Vol] 4.4 mmol/L 3.5-5.1 [facility] Protein [Mass/Vol] 6.8 g/dL 6.4-8.2 [facility] Sodium [Moles/Vol] 137 mmol/L 136-145 [facility] Triglyceride [Mass/Vol] 51 mg/dL <=150 [facility] Urea nitrogen [Mass/Vol] 21.0 mg/dL 7.0-18.0 [facility] Urea nitrogen/Creatinine [Mass ratio] 25.9 mg/mg [facility] Laboratory - Hematology and Cell countson 11-14-2023 Immature granulocytes/100 WBC (Bld) 0.2 % 0.0-0.5 [facility] Leukocytes [#/volume] correc stephanie for nucleated erythrocytes in Blood by Automated counon 11-14-2023 WBC corrected for nucl RBC Auto (Bld) [#/Vol] 8.4 10 3/uL 4.0-11.0 [facility] Lymphocytes Auto (Bld) [#/Vo l]on 11-14-2023 Lymphocytes (Bld) [#/Vol] 1.7 10 3/uL 1.2-3.8 [facility] Lymphocytes/100 WBC Auto (Bl d)on 11-14-2023 Lymphocytes/100 WBC (Bld) 20.5 % 20.5-60.0 [facility] MCH Auto (RBC) [Entitic mass ]on 11-14-2023 MCH (RBC) [Entitic mass] 31.7 pg 26.7-34.0 [facility] MCHC Auto (RBC) [Mass/Vol]on 11-14-2023 MCHC (RBC) [Mass/Vol] 33.3 g/dL 29.9-35.2 [facility] MCV Auto (RBC) [Entitic vol] on 11-14-2023 MCV (RBC) [Entitic vol] 95.2 fL 81.0-99.0 [facility] Monocytes Auto (Bld) [#/Vol] on 11-14-2023 Monocytes (Bld) [#/Vol] 0.5 10 3/uL 0.3-0.8 [facility] Monocytes/100 WBC Auto (Bld) on 11-14-2023 Monocytes/100 WBC (Bld) 5.5 % 1.7-12.0 [facility] Neutrophils Auto (Bld) [#/Vo l]on 11-14-2023 Neutrophils (Bld) [#/Vol] 5.2 10 3/uL 1.4-6.5 [facility] Neutrophils/100 WBC Auto (Bl d)on 11-14-2023 Neutrophils/100 WBC (Bld) 61.3 % 43.0-75.0 [facility] No Panel Informationon 11-13 Eosinophils # (Auto) 1.0 10 3/uL 0.0-0.7 [facility] Immature Granulocyte # (Auto) 0.02 10 3/uL 0.00-0.03 [facility] Platelet mean volume Auto (B ld) [Entitic vol]on 11-14-2023 Platelet mean volume (Bld) [Entitic vol] 10.3 fL 9.5-13.5 [facility] Platelets Auto (Bld) [#/Vol] on 11-14-2023 Platelets (Bld) [#/Vol] 235 10 3/uL 150-450 [facility] RBC Auto (Bld) [#/Vol]on RBC (Bld) [#/Vol] 4.16 10 6/uL 4.20-5.40 [facility] Serum or plasma albumin/glob ulin mass ratioon 11-14-2023 Albumin/Globulin [Mass ratio] 1.0 {ratio} [facility] Serum or plasma anion gap de terminationon 11-14-2023 Anion gap [Moles/Vol] 11.3 mmol/L [facility] Serum or plasma total choles terol/high density lipoprotein (HDL) cholesterol mass abdirashid 11-14-2023 Cholesterol.total/Shelley sterol in HDL [Mass ratio] 2.2 {ratio} [facility] Comment on above: 3.3 - 4.4 LOW RISK4. 4 - 7.1 AVERAGE RISK7.1 - 11.0 MODERATE RISK>11.0 HIGH RISK Glucose mean value [Mass/vol ume] in Blood Estimated from glycated hemoglobinon 11-07-2023 Average glucose Estimated from glycated hemoglobin (Bld) [Mass/Vol] 105 mg/dL [facility] Laboratory - Chemistry and C hemistry - challengeon 11-07-2023 Ferritin [Mass/Vol] 35.0 ng/mL 8.0-252.0 [facility] Free T4 [Mass/Vol] 0.96 ng/dL 0.76-1.46 [facility] Glucose [Mass/Vol] 88 mg/dL 74-106 [facility] T4 [Mass/Vol] 7.70 ug/dL 4.80-13.90 [facility] TSH Qn 2.126 m[IU]/L 0.358-3.74 0 [facility] Laboratory - Hematology and Cell countson 11-07-2023 HbA1c (Bld) [Mass fraction] 5.3 % 4.5-6.2 [facility] Comment on above: ADA RECOMMENDED LIMI T 4.0 - 6.0ADA THERAPEUTIC TARGET < 7.0ACTION SUGGESTED> 7.0 No Panel Informationon 11-06 25-Hydroxy Vitamin D Total 29.1 ng/mL [facility] Comment on above: <20 ng/mL Vit D defi cient20-<30 ng/mL Vit D umlglgplrwvz80-333 ng/mL Vit D sufficient>100 ng/mL Potential Toxicity C-Peptide 1.4 ng/mL 1.1-4.4 [facility] Comment on above: C-Peptide reference interval is for fasting patients. C-Peptide reference interval is for fasting patients. Dehydroepiandrosterone Sulfate 79.4 ug/dL 41.2-243.7 [facility] Free Cortisol, Dialysis, LCMS 0.524 ug/dL . [facility] Comment on above: These tests were dev eloped and their performancecharacteristics determined by [facility]. They have not beencleared or approved by the Food and Drug Administration.Reference Range:8 AM 0.10 - 1.204 PM 0.042 - 0.872Performed at: [facility] [id number] [place], [place] [id number] Director: Shiv Padron MD, Phone: [phone] Free Triiodothyronine 2.33 pg/mL 2.18-3.98 [facility] Reverse Triiodothyronine (T3) 16.0 ng/dL 9.2-24.1 [facility] Comment on above: This test was develo ped and its performance characteristicsdetermined by [facility]. It has not been cleared orapproved by the Food and Drug Administration.Performed at: [address] [id number] Director: Jennifer Ruff MD, Phone: [phone] Sex Hormone Binding Globulin 107.0 nmol/L 17.3-125.0 [facility] Comment on above: Performed at: [facility] [employer] [address] [id number] Director: Mark Gallardo PhD, Phone: [phone] Performed at: [facility] [employer] [address] [id number] Director: Mark Gallardo PhD, Phone: [phone] Testosterone Level 15 ng/dL 4-50 [facility] Serotonin (P) [Mass/Vol]on 0 11-07-2023 Serotonin 170 ng/mL 31-207 [facility] Comment on above: This test was develo ped and its performance characteristicsdetermined by [employer]. It has not been cleared orapproved by the Food and Drug Administration.Performed at: [address] [id number] Director: Jennifer Ruff MD, Phone: [phone] This test was develo ped and its performance characteristicsdetermined by [facility]. It has not been cleared orapproved by the Food and Drug Administration.Performed at: [address] [id number] Director: Jennifer Ruff MD, Phone: [phone] Serum estrone measurementon 11-07-2023 E1 [Mass/Vol] 106 pg/mL . [facility] Comment on above: Range Adult (Premeno pausal) 27 - 231 Menstrual Cycle (1-10 days) 19 - 149 Menstrual Cycle (11-20 days) 32 - 176 Menstrual Cycle (21-30 days) 37 - 200 Adult (Postmenopausal) 0 - 125Performed at: [address] [id number] Director: Jennifer Ruff MD, Phone: [phone] Serum or plasma estradiol (E 2) measurement (mass/volume)on 11-07-2023 E2 [Mass/Vol] 238.0 pg/mL . [facility] Comment on above: Adult Female Range F ollicular phase 12.5 - 166.0 Ovulation phase 85.8 - 498.0 Luteal phase 43.8 - 211.0 Postmenopausal <6.0 - 54.7 1st trimester 215.0 - >4300.0Roche ECLIA methodology Serum or plasma insulin hanna urement (units/volume)on 11-07-2023 Insulin Qn 3.5 u[iU]/mL 2.6-24.9 [facility] Comment on above: Performed at: [employer] [address] [id number] Director: Mark Gallardo PhD, Phone: [phone] Serum or plasma progesterone measurement (mass/volume)on 11-07-2023 Progesterone [Mass/Vol] 0.5 ng/mL . [facility] Comment on above: Follicular phase 0.1 - 0.9 Luteal phase 1.8 - 23.9 Ovulation phase 0.1 - 12.0 First trimester 11.0 - 44.3 Second trimester 25.4 - 83.3 Third trimester 58.7 - 214.0 Postmenopausal 0.0 - 0.1 TPO Ab Qnon 11-07-2023 Thyroid Peroxidase Antibodies 382 [IU]/mL 0-34 [facility] Testosterone Free [Mass/Vol] on 11-07-2023 Free Testosterone 0.8 pg/mL 0.0-4.2 [facility] Comment on above: Performed at: [employer] [place], [place] [id number] Director: Mark Gallardo PhD, Phone: [phone] at: [employer] [id number] Director: Jennifer Ruff MD, Phone: [phone] Performed at: [employer] [facility] [place], [place] [id number] Director: Mark Gallardo PhD, Phone: [phone] at: [facility] [id number] Director: Jennifer Ruff MD, Phone: [phone] Thyroglobulin Ab Qnon 2023 Anti-Thyroglobulin Antibody 933.8 [IU]/mL 0.0-0.9 [facility] Comment on above: Thyroglobulin Antibo dy measured by [employer] DocSendMethodologyIt should be noted that the presence of thyroglobulinantibodies may not be pathogenic nor diagnostic, especiallyat very low levels. The assay child and youth program assistant has found thatfour percent of individuals without evidence of thyroiddisease or autoimmunity will have positive TgAb levels upto 4 IU/mL.Performed at: [facility] [email or web address] [id number] Director: Mark Gallardo PhD, Phone: [phone] Thyroglobulin Antibo dy measured by WowsaiMethodologyIt should be noted that the presence of thyroglobulinantibodies may not be pathogenic nor diagnostic, especiallyat very low levels. The assay child and youth program assistant has found thatfour percent of individuals without evidence of thyroiddisease or autoimmunity will have positive TgAb levels upto 4 IU/mL.Performed at: [facility] [employer] [id number] Director: Mark Gallardo PhD, Phone: [phone] Thyroglobulin Antibo dy measured by ForMuneologyIt should be noted that the presence of thyroglobulinantibodies may not be pathogenic nor diagnostic, especiallyat very low levels. The assay child and youth program assistant has found thatfour percent of individuals without evidence of thyroiddisease or autoimmunity will have positive TgAb levels upto 4 IU/mL.Performed at: [facility] [email or web address] [id number] Director: Mark Gallardo PhD, Phone: [phone] Thyroglobulin [Mass/volume] in Serum or Plasmaon 11-07-2023 Thyroglobulin [Mass/Vol] 9.4 ng/mL . [facility] Comment on above: This test was develo ped and its performance characteristicsdetermined by [facility]. It has not been cleared or approvedby the Food and Drug Administration.Reference Range:Pubertal Childrenand Adults: <40According to the National Academy of Clinical Biochemistry,the reference interval for Thyroglobulin (TG) should berelated to euthyroid patients and not for patients whounderwent thyroidectomy. TG reference intervals for thesepatients depend on the residual mass of the thyroid tissueleft after surgery. Establishing a post-operative baselineis recommended. The assay quantitation limit is 2.0 ng/mL.Performed at: [employer] [address] [place], [place] [id number] Director: Shiv Padron MD, Phone: [phone] Operative Reporton Operative Report [id number]#1.00TIFF Normal [facility] Pathology Noteon 10-13-2023 Pathology Note [id number]#1.00TIFF Normal [facility] [facility] HCG ( test) IA.rapi d Ql (U)on 10-11-2023 HCG ( test) Ql (U) Negative NEGATIVE [facility] Shahab 10-11-2023 L Specimen: [id number] Received: 10/11/23 Status: SOUWade Re Num: [id number] Spec Type: Surgical Subm Dr: Anup Pearl MD FACS Tissues: A Stomach - Biopsy/Polyp (ANTRUM BX) Procedures: HE/2, Gross/Micro L4 Age/ Patient Sex Location Account Attending Physician FrankIoana 52/F LABELL [id number] Anup Pearl MD FACS SPEC NUM: [id number] RECD: 10/11/23 STATUS: [facility] NUM: [id number] CARYN: 10/11/[address]: Anup Pearl MD FACS ENTERED: 10/11/23 [facility] DR: Prerna Lee SPEC TYPE: Surgical DEPT: JEFRY TRUONG ORDERED: HE/2, Gross/Micro L4 ORDERED: HE/2, Gross/Micro L4 Pathological Diagnosis Gastric Biopsy: Chronic Inactive Gastritis. Immunostain is Negative For H. Pylori Organisms. Gross Description Received in formalin, labeled with the patient's name and antrum BX are 2 powell mucosal tissue fragments measuring 0.3 x 0.1 x 0.1 cm and 0.2 x 0.1 x 0.1 cm, entirely submitted in A1. Clinical history: Antral ulcer, small hiatal hernia CPT Codes 01855, 18836 Specimen: [id number] Received: 10/11/23 Status: JHONWade Kai Num: [id number] Spec Type: Surgical Subm Dr: Anup Pearl MD FACS Tissues: A Stomach - Biopsy/Polyp (ANTRUM BX) Procedures: HE/2, Gross/Micro L4 Patient: Ioana aMrie [id number] (Continued) Signed (signature on file) Joshua Marshall MD 10/12/23 1548 Normal [facility] Lab Reportson 10-11-2023 Lab Reports [id number]#1.00TIFF Normal [facility] Pre-Certification Formon Pre-Certification Form [id number]#1.00TIFF Normal [facility] Consent for Procedure/Surger yon 08-31-2023 Consent for Procedure/Surgery [id number]#1.00TIFF Normal [facility] Facesheeton 08-31-2023 Facesheet [id number]#1.00TIFF Normal [facility] Ambulatory Visit Summaryon 0 08-30-2023 Ambulatory Visit Summary IOANA MARIE :1970 Visit Date:08/30/2023 Ambulatory Visit Instructions Your Care Team Attending Physician - DAE ROSALES, Anup Frias Primary Care Physician - ARMOND ROSALES, TESS This Is Your Medications List Contact prescribing [...] for choosing us for your care. Normal [facility] MG MAMM SCREEN 3D CHRISTAL CADon 11-11-2022 MG MAMM SCREEN 3D CHRISTAL CAD Patient: IOANA MARIE Exam Date: 11/11/2022 : 1970 Gender:F Ordering : DR TRISTON WALKER . Admission #: [id number] Family : Order #: [id number] CLICK HERE TO VIEW EXAM RADIOLOGY REPORT [...] breast cancer at age 69. LOCATION: [facility] BREAST COMPOSITION: Extremely dense, which lowers the [...] MD on 11/11/2022 at 13:58 Normal [facility] CBC AUTO DIFFon 11-01-2022 BASO # 0.1 103/ul Normal 0.0-0.1 [facility] Comment on above: Performed By: #### C BC #### [facility] [address] [place] [address] Dr. Edelmira Hirsch Basophils/100 WBC (Bld) 1.0 % Normal 0.2-2.0 [facility] Comment on above: Performed By: #### C BC #### [facility] [address] [place] [address] Dr. Edelmira Hirsch EO # 1.0 103/ul Critically high 0.0-0.7 [facility] Comment on above: Performed By: #### C BC #### [facility] [address] [place] [address] Dr. Edelmira Hirsch Eosinophils/100 WBC (Bld) 13.9 % Critically high 0.9-7.0 [facility] Comment on above: Performed By: #### C BC #### [facility] [address] [place] [address] Dr. Edelmira Hirsch Erythrocyte distribution width (RBC) [Ratio] 12.2 % Normal 11.0-15.0 [facility] Comment on above: Performed By: #### C BC #### [facility] [address] [place] [address] Dr. Edelmira Hirsch Hematocrit (Bld) [Volume fraction] 40.5 % Normal 36.0-48.0 [facility] Comment on above: Performed By: #### C BC #### [facility] [address] [place] [address] Dr. Edelmira Hirsch Hemoglobin (Bld) [Mass/Vol] 13.8 g/dL Normal 12.0-16.0 [facility] Comment on above: Performed By: #### C BC #### [facility] [address] [place] [address] Dr. Edelmira Hirsch IG # 0.02 10e3/ul Normal 0.00-0.03 [facility] Comment on above: Performed By: #### C BC #### [facility] [address] [place] [address] Dr. Edelmira Hirsch IG % 0.3 % Normal 0.0-0.5 [facility] Comment on above: Performed By: #### C BC #### [facility] [address] [place] [address] Dr. Edelmira Hirsch LYMPH # 1.8 103/ul Normal 1.2-3.8 [facility] Comment on above: Performed By: #### C BC #### [facility] [address] [place] [address] Dr. Edelmira Hirsch Lymphocytes/100 WBC (Bld) 24.6 % Normal 20.5-60.0 [facility] Comment on above: Performed By: #### C BC #### [facility] [address] [place] [address] Dr. Edelmira Hirsch MANUAL DIFF REQ NO Normal [facility] Comment on above: Performed By: #### C BC #### [facility] [address] [place] [address] Dr. Edelmira Hirsch MCH (RBC) [Entitic mass] 32.2 pg Normal 26.7-34.0 [facility] Comment on above: Performed By: #### C BC #### [facility] [address] [place] [address] Dr. Edelmira Hirsch MCHC (RBC) [Mass/Vol] 34.1 g/dL Normal 29.9-35.2 [facility] Comment on above: Performed By: #### C BC #### [facility] [address] [place] [address] Dr. Edelmira Hirsch MCV (RBC) [Entitic vol] 94.6 fL Normal 81.0-99.0 [facility] Comment on above: Performed By: #### C BC #### [facility] [address] [place] [address] Dr. Edelmira Hirsch MONO # 0.5 103/ul Normal 0.3-0.8 [facility] Comment on above: Performed By: #### C BC #### [facility] [address] [place] [address] Dr. Edelmira Hirsch Monocytes/100 WBC (Bld) 6.5 % Normal 1.7-12.0 [facility] Comment on above: Performed By: #### C BC #### [facility] [address] [address] [address] Edelmira Hirsch NEUT # 3.8 103/ul Normal 1.4-6.5 [facility] Comment on above: Performed By: #### C BC #### [facility] [address] [address] [address] Edelmira Hirsch Neutrophils/100 WBC (Bld) 53.7 % Normal 43.0-75.0 [facility] Comment on above: Performed By: #### C BC #### [facility] [address] [place] [address] Dr. Edelmira Hirsch Platelet mean volume (Bld) [Entitic vol] 10.0 fL Normal 9.5-13.5 [facility] Comment on above: Performed By: #### C BC #### [facility] [address] [place] [address] Dr. Edelmira Hirsch PLT 276 103/ul Normal 150-450 [facility] Comment on above: Performed By: #### C BC #### [facility] [address] [place] [address] Dr. Edelmira Hirsch RBC 4.28 106/ul Normal 4.20-5.40 [facility] Comment on above: Performed By: #### C BC #### [facility] [address] [place] [address] Dr. Edelmira Hirsch WBC 7.1 103/ul Normal 4.0-11.0 [facility] Comment on above: Performed By: #### C BC #### [facility] [address] [place] [address] Dr. Edelmira Hirsch GLYCOHEMOGLOBIN A1Con 2022 ADA RECOMMENDATION SEE BELOW Normal [facility] Comment on above: Result Comment: ADA RECOMMENDED LIMIT 4.0 - 6.0 ADA THERAPEUTIC TARGET < 7.0 ACTION SUGGESTED > 7.0 Performed By: #### A 1C #### [facility] [address] [place] [address] Dr. Edelmira Hirsch Glucose [Mass/Vol] 100 mg/dL Normal [facility] Comment on above: Performed By: #### A 1C #### [facility] [address] [address] [address] Edelmira Hirsch HbA1c (Bld) [Mass fraction] 5.1 % Normal 4.5-6.2 [facility] Comment on above: Performed By: #### A 1C #### [facility] [address] [address] [address] Edelmira Hirsch LIPID PROFILEon 11-01-2022 CHOL-HDL RATIO NORM SEE BELOW Normal [facility] Comment on above: Result Comment: 3.3 - 4.4 LOW RISK 4.4 - 7.1 AVERAGE RISK 7.1 - 11.0 MODERATE RISK >11.0 HIGH RISK Performed By: #### L IPID, CMP, TSH #### [facility] [address] [address] [address] Edelmira Hirsch Cholesterol [Mass/Vol] 164 mg/dL Normal <=200 Th [facility] Comment on above: Performed By: #### L IPID, CMP, TSH #### [facility] [address] [address] [address] Edelmira Hirsch Cholesterol in HDL [Mass/Vol] 80 mg/dL Critically high 40-60 [facility] Comment on above: Performed By: #### L IPID, CMP, TSH #### [facility] [address] [address] [address] Edelmira Hirsch Cholesterol in LDL [Mass/Vol] 76.8 mg/dL Normal [facility] Comment on above: Performed By: #### L IPID, CMP, TSH #### [facility] [address] [address] [address] Edelmira Hirsch Cholesterol.total/Shelley sterol in HDL [Mass ratio] 2.1 {ratio} Normal [facility] Comment on above: Performed By: #### L IPID, CMP, TSH #### [facility] [address] [place] [address] Dr. Edelmira Hirsch HDL NORMAL > or = 60 mg/dl - LO W CARDIOVASCULAR RISK <40 mg/dl - HIGH CARDIOVASCULAR RISK Normal [facility] Comment on above: Performed By: #### L IPID, CMP, TSH #### [facility] [address] [address] [address] Edelmira Hirsch LDL CALC NORMAL SEE BELOW Normal [facility] Comment on above: Result Comment: <100 mg/dl OPTIMAL 100 - 129 mg/dl NEAR OR ABOVE OPTIMAL 130 - 159 mg/dl BORDERLINE HIGH 160 - 189 mg/dl HIGH >190 mg/dl VERY HIGH Performed By: #### L IPID, CMP, TSH #### [facility] [address] [address] [address] Edelmira Hirsch Triglyceride [Mass/Vol] 36 mg/dL Normal <=150 T [facility] Comment on above: Performed By: #### L IPID, CMP, TSH #### [facility] [address] [place] [address] Dr. Edelmira Hirsch VLDL CALC 7.2 mg/dL Normal [facility] Comment on above: Performed By: #### L IPID, CMP, TSH #### [facility] [address] [place] [address] Dr. Edelmira Hirsch PROF 14(COMP METB)on 023 Albumin [Mass/Vol] 3.5 g/dL Normal 3.4-5.0 [facility] Comment on above: Performed By: #### L IPID, CMP, TSH #### [facility] [address] [place] [address] Dr. Edelmira Hirsch Albumin/Globulin [Mass ratio] 0.9 {ratio} Normal [facility] Comment on above: Performed By: #### L IPID, CMP, TSH #### [facility] [address] [place] [address] Dr. Edelmira Hirsch ALP [Catalytic activity/Vol] 51 U/L Normal 46-116 [facility] Comment on above: Performed By: #### L IPID, CMP, TSH #### [facility] [address] [place] [address] Dr. Edelmira Hirsch ALT [Catalytic activity/Vol] 23 U/L Normal 14-59 [facility] Comment on above: Performed By: #### L IPID, CMP, TSH #### [facility] [address] [place] [address] Dr. Edelmira Hirsch Anion gap [Moles/Vol] 11.2 mmol/L Normal [facility] Comment on above: Performed By: #### L IPID, CMP, TSH #### [facility] [address] [address] [address] Edelmira Hirsch AST [Catalytic activity/Vol] 18 U/L Normal 15-37 [facility] Comment on above: Performed By: #### L IPID, CMP, TSH #### [facility] [address] [address] [address] Edelmira Hirsch Bilirubin [Mass/Vol] 0.9 mg/dL Normal 0.2-1.0 [facility] Comment on above: Performed By: #### L IPID, CMP, TSH #### [facility] [address] [address] [address] Edelmira Hirsch Calcium [Mass/Vol] 9.4 mg/dL Normal 8.5-10.1 [facility] Comment on above: Performed By: #### L IPID, CMP, TSH #### [facility] [address] [address] [address] Edelmira Hirsch Chloride [Moles/Vol] 104 mmol/L Normal 98-107 [facility] Comment on above: Performed By: #### L IPID, CMP, TSH #### [facility] [address] [address] [address] Edelmira Hirsch CO2 [Moles/Vol] 29.5 mmol/L Normal 21.0-32.0 [facility] Comment on above: Performed By: #### L IPID, CMP, TSH #### [facility] [address] [place] [address] Dr. Edelmira Hirsch Creatinine [Mass/Vol] 0.86 mg/dL Normal 0.55-1.02 [facility] Comment on above: Performed By: #### L IPID, CMP, TSH #### [facility] [address] [address] [address] Edelmira Hirsch EGFR-AF COMORAN >60 Normal >=60 [facility] Comment on above: Performed By: #### L IPID, CMP, TSH #### [facility] [address] [address] [address] Edelmira Hirsch EGFR-NON AF COMORAN >60 Normal >=60 [facility] Comment on above: Performed By: #### L IPID, CMP, TSH #### [facility] [address] [address] [address] Edelmira Hirsch Globulin (S) [Mass/Vol] 3.7 g/dL Normal T [facility] Comment on above: Performed By: #### L IPID, CMP, TSH #### [facility] [address] [address] [address] Edelmira Hirsch Glucose [Mass/Vol] 97 mg/dL Normal 74-106 [facility] Comment on above: Performed By: #### L IPID, CMP, TSH #### [facility] [address] [place] [address] Dr. Edelmira Hirsch Potassium [Moles/Vol] 4.7 mmol/L Normal 3.5-5.1 [facility] Comment on above: Performed By: #### L IPID, CMP, TSH #### [facility] [address] [place] [address] Dr. Edelmira Hirsch Protein [Mass/Vol] 7.2 g/dL Normal 6.4-8.2 [facility] Comment on above: Performed By: #### L IPID, CMP, TSH #### [facility] [address] [place] [address] Dr. Edelmira Hirsch Sodium [Moles/Vol] 140 mmol/L Normal 136-145 [facility] Comment on above: Performed By: #### L IPID, CMP, TSH #### [facility] [address] [place] [address] Dr. Edelmira Hirsch Urea nitrogen [Mass/Vol] 14.0 mg/dL Normal 7.0-18.0 [facility] Comment on above: Performed By: #### L IPID, CMP, TSH #### [facility] [address] [place] [address] Dr. Edelmira Hirsch Urea nitrogen/Creatinine [Mass ratio] 16.3 mg/mg Normal [facility] Comment on above: Performed By: #### L IPID, CMP, TSH #### [facility] [address] [address] [address] Edelmira Hirsch TSHon 11-01-2022 TSH 2.540 uIU/mL Normal 0.358-3.74 0 [facility] Comment on above: Performed By: #### L IPID, CMP, TSH #### [facility] [address] [place] [address] Dr. Edelmira Hirsch PAP ACOG PANEL 2: 30 to 65on 06-27-2022 . . Normal [facility] Comment on above: Result Comment: Perf ormed at: WB Performed By: #### 4 [id number] #### [facility] [address] [place] [address] Dr. Edelmira Hirsch Age Gdln ACOG Testing - [facility] Comment on above: Performed By: #### 4 [id number] #### [facility] [address] [place] [address] Dr. Edelmira Hirsch DIAGNOSIS: Comment Normal [facility] Comment on above: Result Comment: NEGA TIVE FOR INTRAEPITHELIAL LESION OR MALIGNANCY. Performed at: WB Performed By: #### 4 [id number] #### [facility] [address] [place] [address] Dr. Edelmira Hirsch HPV Aptima Negative Normal Negative [facility] Comment on above: Result Comment: This nucleic acid amplification test detects fourteen high-risk HPV types (16,18,31,33,35,39,45,51,52,56,58,59,66,68) without differentiation. Performed at: =G Performed By: #### 4 [id number] #### [facility] [address] [place] [address] Dr. Edelmira Hirsch HPV Genotype Reflex Comment Normal [facility] Comment on above: Result Comment: Crit eria not met, HPV Genotype not performed. Performed at: WB Performed By: #### 4 [id number] #### [facility] [address] [place] [address] Dr. Edelmira Hirsch Methodology: Comment Normal [facility] Comment on above: Result Comment: This liquid based ThinPrep(R) pap test was screened with the use of an image guided system. Performed at: WB Performed By: #### 4 [id number] #### [facility] [address] [place] [address] Dr. Edelmira Hirsch Note: Comment Normal [facility] Comment on above: Result Comment: The Pap smear is a screening test designed to aid in the detection of premalignant and malignant conditions of the uterine cervix. It is not a diagnostic procedure and should not be used as the sole means of detecting cervical cancer. Both false-positive and false-negative reports do occur. . Performed at: WB Performed By: #### 4 [id number] #### [facility] [address] [place] [address] Dr. Edelmira Hirsch Performed by: Comment Normal [facility] Comment on above: Result Comment: Aury Andrade, [employer] (ASCP) Performed at: WB Performed By: #### 4 [id number] #### [facility] [address] [place] [address] Dr. Edelmira Hirsch Specimen adequacy: Comment Normal [facility] Comment on above: Result Comment: Sati sfactory for evaluation. Endocervical and/or squamous metaplastic cells (endocervical component) are present. Performed at: WB Performed By: #### 4 [id number] #### [facility] [address] [place] [address] Dr. Edelmira Hirsch Nicotine and Metabolite, Harlan nt LCon 04-04-2021 Cotinine LC <1.0 Invalid Interpretation [facility] Comment on above: Result Comment: This test was developed and its performance characteristics determined by [facility]. It has not been cleared or approved by the Food and Drug Administration. Cotinine levels greater than 20.0 are consistent with the use of tobacco or tobacco cessation products. Performed At: [address] [id number] Speedy Rodriguez MD Ph:[phone] Performed By: #### 1 [id number], [id number], [id number], [id number], [id number], [id number] #### [facility] (DEFAULT) [address] [place] [address] Nicotine LC <1.0 Invalid Interpretation Code [facility] Comment on above: Result Comment: This test was developed and its performance characteristics determined by [facility]. It has not been cleared or approved by the Food and Drug Administration. Nicotine levels greater than 2.0 are consistent with the use of tobacco or tobacco cessation products. Performed By: #### 1 [id number], [id number], [id number], [id number], 64194466, 3609230 #### [facility] (DEFAULT) [address] [place] [address] .Auto Diff 1on 03-30-2021 Auto Yell % 7 % Normal 06-[address] [facility] Comment on above: Performed By: #### 1 [id number], [id number], [id number], [id number], 96253717, 1293182 #### [facility] (DEFAULT) [address] [place] [address] Baso Abs# 0.0 x10 Normal 0.0-0.[address] [facility] Comment on above: Performed By: #### 1 6404076, [id number], [id number], [id number], 48270532, 6070669 #### [facility] (DEFAULT) [address] [place] [address] Basophils/100 WBC (Bld) 0.4 % Normal 0.2-2.0 [facility] Comment on above: Performed By: #### 1 [id number], [id number], [id number], [id number], 36343134, 3250717 #### [facility] (DEFAULT) [address] [place] [address] Eos Abs# 1.0 x10 High 0.0-0.[address] [facility] Comment on above: Performed By: #### 1 1609328, [id number], [id number], 6679746944, 23309673, 1828010 #### [facility] (DEFAULT) [address] [place] [address] Eosinophils/100 WBC (Bld) 13.5 % High 0.9-4.[address] [facility] Comment on above: Performed By: #### 1 [id number], [id number], [id number], 4613738403, 55424177, 1525451 #### [facility] (DEFAULT) [address] [place] [address] Lymph Abs# 2.1 x10 Normal 1.3-2.[address] [facility] Comment on above: Performed By: #### 1 [id number], [id number], [id number], 8372111233, 67770661, 6563603 #### [facility] (DEFAULT) [address] [place] [address] Lymphocytes/100 WBC (Bld) 29 % Normal 14-[address] [facility] Comment on above: Performed By: #### 1 [id number], [id number], [id number], [id number], 59606233, 5438042 #### [facility] (DEFAULT) [address] [place] [address] Yell Abs# 0.5 x10 Normal 0.0-0.[address] [facility] Comment on above: Performed By: #### 1 [id number], [id number], [id number], [id number], 18356301, 4329396 #### [facility] (DEFAULT) [address] [place] [address] Neut Abs# 3.5 x10 Normal 1.5-9.[address] [facility] Comment on above: Performed By: #### 1 7646959, [id number], [id number], 6402945041, 00256973, 6632939 #### [facility] (DEFAULT) [address] [place] [address] Neutrophils/100 WBC (Bld) 50 % Normal 44-[address] [facility] Comment on above: Performed By: #### 1 1019470, [id number], [id number], 7425021444, 80842003, 0501407 #### [facility] (DEFAULT) [address] [place] [address] 16425 CBC w/ Auto Diffon 1 Erythrocyte distribution width (RBC) [Ratio] 13.2 % Normal 11.5-15.[address] [facility] Comment on above: Performed By: #### 1 [id number], [id number], 8835271976, 6762398764, 81131785, 8737167 #### [facility] (DEFAULT) [address] [place] [address] Hematocrit (Bld) [Volume fraction] 38.4 % Normal 33.7-40.[address] [facility] Comment on above: Performed By: #### 1 [id number], [id number], [id number], 4925004883, 30696079, 4584645 #### [facility] (DEFAULT) [address] [place] [address] Hemoglobin (Bld) [Mass/Vol] 12.4 g/dL Normal 11.3-15.[address] [facility] Comment on above: Performed By: #### 1 2354835, [id number], 3571138472, 8727492074, 17353227, 6901641 #### [facility] (DEFAULT) [address] [place] [address] Instr WBC 7.1 x10 Invalid Interpretation Code [facility] Comment on above: Performed By: #### 1 3953660, [id number], [id number], [id number], 26241609, 0994819 #### [facility] (DEFAULT) [address] [place] [address] Man Diff? Auto Normal [facility] Comment on above: Performed By: #### 1 0412104, [id number], [id number], 8410961015, 85280327, 8393839 #### [facility] (DEFAULT) [address] [place] [address] 15760 MCH (RBC) [Entitic mass] 30 pg Normal 24-[address] [facility] Comment on above: Performed By: #### 1 [id number], [id number], 5079004075, 3043451453, 57155755, 3820031 #### [facility] (DEFAULT) [address] [place] [address] MCHC (RBC) [Mass/Vol] 32 g/dL Normal 26-37 [facility] Comment on above: Performed By: #### 1 5672800, 3031686844, 0111704130, 1594658303, 96554538, 0006204 #### [facility] (DEFAULT) [address] [place] [address] 56916 MCV (RBC) [Entitic vol] 94 fL Normal 81-100 [facility] Comment on above: Performed By: #### 1 3247624, 9408936789, 5005785641, 5370114101, 95871527, 8292588 #### [facility] (DEFAULT) [address] [place] [address] 60951 Platelet 265 x10 Normal 138-[address] [facility] Comment on above: Performed By: #### 1 9305829, 5232948697, 6933446616, 1152332478, 25450489, 4492008 #### [facility] (DEFAULT) [address] [place] [address] 27982 Platelet mean volume (Bld) [Entitic vol] 10.3 fL High 6.3-10.[address] [facility] Comment on above: Performed By: #### 1 4460858, 5179059136, 1121674244, 8750456890, 15771033, 7887316 #### [facility] (DEFAULT) [address] [place] [address] 79665 RBC 4.10 x10 Normal 3.70-5.[address] [facility] Comment on above: Performed By: #### 1 7075535, 0035438009, 3266196276, 1428972028, 58390433, 0514217 #### [facility] (DEFAULT) [address] [place] [address] 65248 WBC 7.1 x10 Normal 3.5-10.[address] [facility] Comment on above: Performed By: #### 1 1402881, 5167346801, 3109183358, 4152256018, 61043556, 7021117 #### [facility] (DEFAULT) [address] [place] [address] 45465 CMP Standardon 03-30-2021 eGFR Non AA >60 Invalid Interpretation Code [facility] Comment on above: Performed By: #### 1 3194746, 2659748939, 2334824071, 3801334525, 46810582, 2458730 #### [facility] (DEFAULT) [address] [place] [address] 43650 eGFR AA >60 Invalid Interpretation Code [facility] Comment on above: Result Comment: Automatic Spreader Operator roddy Kidney disease could be indicated at eGFRs of less than 60 ml/min/1.73m2. Kidney Failure is indicated at less than 15 ml/min/1.73m2 Performed By: #### 1 9203494, 5608966625, 3377649839, 2462661829, 66777915, 7099322 #### [facility] (DEFAULT) [address] [place] [address] 20582 Albumin [Mass/Vol] 3.6 g/dL Normal 3.5-5.0 [facility] Comment on above: Performed By: #### 1 0881479, 8631104133, 0798920573, 2642020826, 04627711, 9502948 #### [facility] (DEFAULT) [address] [place] [address] 98675 Albumin/Globulin [Mass ratio] 1.1 {ratio} Low 1.4-2.[address] [facility] Comment on above: Performed By: #### 1 9198730, 8668681736, 3513158269, 0731682147, 48524363, 3707645 #### [facility] (DEFAULT) [address] [place] [address] 37741 Alk Phos 61 IU/L Normal 32-[address] [facility] Comment on above: Performed By: #### 1 6201681, 7200058431, 5361908047, 1933076176, 74010888, 5711466 #### [facility] (DEFAULT) [address] [place] [address] 99518 ALT [Catalytic activity/Vol] 14.0 U/L Normal 14.0-54.[address] [facility] Comment on above: Performed By: #### 1 8310817, 2957488665, 0961564577, 4880278867, 70615937, 1905944 #### [facility] (DEFAULT) [address] [place] [address] 65970 Anion gap [Moles/Vol] 9.0 mmol/L Normal 5.0-19.0 [facility] Comment on above: Performed By: #### 1 4738659, 9890764756, 2153517013, 7632405734, 03743927, 2868913 #### [facility] (DEFAULT) [address] [place] [address] 41873 AST [Catalytic activity/Vol] 21 U/L Normal 15-[address] [facility] Comment on above: Performed By: #### 1 4668241, 0375575332, 9054139270, 9448655118, 01685505, 1945900 #### [facility] (DEFAULT) [address] [place] [address] Bili Total 0.9 mg/dL Normal 0.3-1.[address] [facility] Comment on above: Performed By: #### 1 4375222, 9084861557, 4702088647, 4835238882, 63691588, 5060401 #### [facility] (DEFAULT) [address] [place] [address] 67636 Calcium [Mass/Vol] 8.6 mg/dL Low 8.9-10.3 [facility] Comment on above: Performed By: #### 1 8085277, 5910649756, 1929603206, 1946076408, 90018095, 7893682 #### [facility] (DEFAULT) [address] [place] [address] 55115 Chloride [Moles/Vol] 103 mmol/L Normal 101-111 [facility] Comment on above: Performed By: #### 1 1805688, 6032466975, 7234136774, 7626893898, 20537356, 2890273 #### [facility] (DEFAULT) [address] [place] [address] 49712 CO2 [Moles/Vol] 27 mmol/L Normal 21-[address] [facility] Comment on above: Performed By: #### 1 3599191, 6872299379, 0898961894, 8501699006, 77048223, 6617036 #### [facility] (DEFAULT) [address] [place] [address] 26785 Creatinine [Mass/Vol] 0.81 mg/dL Normal 0.60-1.30 [facility] Comment on above: Performed By: #### 1 3216489, 7749332392, 7656243215, 6353640939, 19874040, 7898317 #### [facility] (DEFAULT) [address] [place] [address] 46622 Globulin (S) [Mass/Vol] 3.4 g/dL Normal 1.5-4.3 [facility] Comment on above: Performed By: #### 1 5993666, 6393300364, 8565722211, 4084546460, 25793909, 5944972 #### [facility] (DEFAULT) [address] [place] [address] 46430 Glucose [Mass/Vol] 89.0 mg/dL Normal 74.0-118.0 [facility] Comment on above: Performed By: #### 1 3114415, 5618451863, 7994474341, 1023528360, 18482191, 4737147 #### [facility] (DEFAULT) [address] [place] [address] 04459 Osmolality 269 mOsm/L Invalid Interpretation Code [facility] Comment on above: Performed By: #### 1 7283978, 1674886189, 2513930513, 3559479087, 16503045, 6629983 #### [facility] (DEFAULT) [address] [place] [address] 36251 Potassium [Moles/Vol] 4.0 mmol/L Normal 3.6-5.1 [facility] Comment on above: Performed By: #### 1 5432521, 8881883800, 6322663215, 1535622166, 15703690, 9742248 #### [facility] (DEFAULT) [address] [place] [address] 03286 Protein [Mass/Vol] 7.0 g/dL Normal 6.5-8.1 [facility] Comment on above: Performed By: #### 1 5571616, 4775133199, 0085401699, 0985158153, 98544469, 4771227 #### [facility] (DEFAULT) [address] [place] [address] Sodium [Moles/Vol] 135.0 mmol/L Low 136.0-144 . [address] [facility] Comment on above: Performed By: #### 1 3088436, 8622124552, 7501742098, 7846078573, 91119405, 9132226 #### [facility] (DEFAULT) [address] [place] [address] Urea nitrogen [Mass/Vol] 12 mg/dL Normal 8-[address] [facility] Comment on above: Performed By: #### 1 1750175, 4638861832, 9937927150, 9350088944, 96038952, 3070058 #### [facility] (DEFAULT) [address] [place] [address] Urea nitrogen/Creatinine [Mass ratio] 15.0 mg/mg Normal 4.6-16.[address] [facility] Comment on above: Performed By: #### 1 7121258, 5225764938, 7688640223, 0640800849, 37405129, 1668612 #### [facility] (DEFAULT) [address] [place] [address] HgbA1c Standardon 03-30-2021 .Hb 14.4 Invalid Interpretation Code [facility] Comment on above: Performed By: #### 1 8279133, 8501957530, 7865354150, 5223134507, 97638591, 3924208 #### [facility] (DEFAULT) [address] [place] [address] .Hgb A1c 0.48 g/dL Invalid Interpretation Code [facility] Comment on above: Performed By: #### 1 5519207, 1435001030, 8989605256, 1851904904, 13897501, 3904100 #### [facility] (DEFAULT) [address] [place] [address] Glucose [Mass/Vol] 103 mg/dL Invalid Interpretation Code [facility] Comment on above: Performed By: #### 1 4916642, 2977503005, 0042324113, 5965611721, 97229192, 5476336 #### [facility] (DEFAULT) [address] [place] [address] 46851 HbA1c (Bld) [Mass fraction] 5.2 % Normal 4.6-6.[address] [facility] Comment on above: Performed By: #### 1 7061114, 8532101690, 8338760352, 4270959134, 86154368, 7427557 #### [facility] (DEFAULT) [address] [place] [address] 30551 Lipid Panel Standardon 03-30 Cholesterol [Mass/Vol] 171.0 mg/dL Normal 66.0-200.0 [facility] Comment on above: Result Comment: Rosalind rable - Less than 200 mg/dL Borderline high risk - 200-239 mg/dL High risk - 240 mg/dL and over. Performed By: #### 1 8750758, 0513120804, 5182451346, 4188263310, 36173499, 2665439 #### [facility] (DEFAULT) [address] [place] [address] 61078 Cholesterol in HDL [Mass/Vol] 64 mg/dL Normal 40-[address] [facility] Comment on above: Result Comment: High risk - <40 mg/dL. Performed By: #### 1 1696470, 3528643744, 6793537599, 1416442781, 83211229, 7915307 #### [facility] (DEFAULT) [address] [place] [address] 54636 Cholesterol in LDL [Mass/Vol] 93 mg/dL Normal 1-[address] [facility] Comment on above: Result Comment: Opti mal - Less than 100 mg/dL Borderline high risk - 130-159 mg/dL High risk - 160-189 mg/dL. Performed By: #### 1 4653954, 0399966777, 2173976948, 6922704216, 59865471, 1987643 #### [facility] (DEFAULT) [address] [place] [address] 20228 Cholesterol.total/Shelley sterol in HDL [Mass ratio] 2.7 {ratio} Normal 0.0-4.[address] [facility] Comment on above: Performed By: #### 1 4687193, 6431014030, 4632216522, 7108708696, 57496572, 1109578 #### [facility] (DEFAULT) [address] [place] [address] 46208 Triglyceride [Mass/Vol] 73.0 mg/dL Normal 0.0-150.0 [facility] Comment on above: Performed By: #### 1 2806677, 3744129992, 0009321709, 7018567921, 19751712, 3948086 #### [facility] (DEFAULT) [address] [place] [address] 71412 VLDL. 15 mg/dL Normal 5-[address] [facility] Comment on above: Performed By: #### 1 0672155, 7367122254, 9094928499, 2081405212, 31681003, 6183161 #### [facility] (DEFAULT) [address] [place] [address] 74844 Nicotine and Metabolite, Harlan nt LCon 04-20-2020 Cotinine LC <1.0 Invalid Interpretation Code [facility] Comment on above: Result Comment: This test was developed and its performance characteristics determined by [employer]. It has not been cleared or approved by the Food and Drug Administration. Cotinine levels greater than 20.0 are consistent with the use of tobacco or tobacco cessation products. Performed At: [address] [id number] Speedy Rodriguez MD Ph:[phone] Performed By: #### 1 6821834, 6096160098, 1791094431, 4709541480, 17190301, 2933671 #### [facility] (DEFAULT) [address] [place] [address] 67892 Nicotine LC <1.0 Invalid Interpretation Code [facility] Comment on above: Result Comment: This test was developed and its performance characteristics determined by [employer]. It has not been cleared or approved by the Food and Drug Administration. Nicotine levels greater than 2.0 are consistent with the use of tobacco or tobacco cessation products. Performed By: #### 1 8203126, 7677401335, 4312703643, 0589025274, 73829909, 0043905 #### [facility] (DEFAULT) [address] [place] [address] .Auto Diff 04-10-2020 Auto Yell % 8 % Normal 1-[address] [facility] Comment on above: Performed By: #### 7 789039, 72039241, 5450837048, 9587471933, 6567513397, 15982615 #### [facility] (DEFAULT) [address] [place] [address] Baso Abs# 0.0 x10 Normal 0.0-0.[address] [facility] Comment on above: Performed By: #### 7 034816, 88260078, 7658151164, 3449156208, 0987885257, 90458573 #### [facility] (DEFAULT) [address] [place] [address] Basophils/100 WBC (Bld) 0.6 % Normal 0.2-2.0 [facility] Comment on above: Performed By: #### 7 363146, 10223619, 7741201179, 8607100226, 9192766583, 52568626 #### [facility] (DEFAULT) [address] [place] [address] Eos Abs# 0.7 x10 High 0.0-0.[address] [facility] Comment on above: Performed By: #### 7 977682, 38036431, 6580391979, 6353783499, 3138958531, 72999551 #### [facility] (DEFAULT) [address] [place] [address] Eosinophils/100 WBC (Bld) 13.1 % High 0.9-4.[address] [facility] Comment on above: Performed By: #### 7 465807, 84096605, 1071397800, 1106239441, 0153942241, 96669108 #### [facility] (DEFAULT) [address] [place] [address] Lymph Abs# 1.8 x10 Normal 1.3-2.[address] [facility] Comment on above: Performed By: #### 7 113910, 95749407, 9735347320, 6860506291, 3598555855, 96869548 #### [facility] (DEFAULT) [address] [place] [address] Lymphocytes/100 WBC (Bld) 33 % Normal 14-[address] [facility] Comment on above: Performed By: #### 7 558552, 32705174, 5408715795, 8940079746, 4734179211, 25127477 #### [facility] (DEFAULT) [address] [place] [address] Yell Abs# 0.4 x10 Normal 0.0-0.[address] [facility] Comment on above: Performed By: #### 7 470017, 59123668, 6527708983, 0601739489, 6381361762, 72728955 #### [facility] (DEFAULT) [address] [place] [address] Neut Abs# 2.4 x10 Normal 1.5-9.[address] [facility] Comment on above: Performed By: #### 7 815231, 08766660, 5154693260, 3956985720, 0935752608, 45605662 #### [facility] (DEFAULT) [address] [place] [address] Neutrophils/100 WBC (Bld) 45 % Normal 44-[address] [facility] Comment on above: Performed By: #### 7 825594, 26901240, 9034478358, 5779201384, 1380287403, 70312016 #### [facility] (DEFAULT) [address] [place] [address] CBC w/ Auto Diffon Erythrocyte distribution width (RBC) [Ratio] 13.4 % Normal 11.5-15.[address] [facility] Comment on above: Performed By: #### 7 922590, 60126398, 1677326544, 8258128417, 1040407489, 44430553 #### [facility] (DEFAULT) [address] [place] [address] Hematocrit (Bld) [Volume fraction] 38.4 % Normal 33.7-40.[address] [facility] Comment on above: Performed By: #### 7 673993, 42342491, 7267022405, 7930558472, 4990887740, 23990265 #### [facility] (DEFAULT) [address] [place] [address] Hemoglobin (Bld) [Mass/Vol] 12.6 g/dL Normal 11.3-15.[address] [facility] Comment on above: Performed By: #### 7 663596, 08076111, 9442783230, 9722800158, 5077251997, 71210130 #### [facility] (DEFAULT) [address] [place] [address] Instr WBC 5.3 x10 Invalid Interpretation Code [facility] Comment on above: Performed By: #### 7 708338, 16692469, 7800519630, 9796868417, 5006446138, 93991593 #### [facility] (DEFAULT) [address] [place] [address] Man Diff? Auto Normal [facility] Comment on above: Performed By: #### 7 478148, 82682124, 0859235528, 1190232336, 9529199239, 93518445 #### [facility] (DEFAULT) [address] [place] [address] 54625 MCH (RBC) [Entitic mass] 29 pg Normal 24-[address] [facility] Comment on above: Performed By: #### 7 361670, 53645069, 2594704624, 5524458761, 1634639405, 45571232 #### [facility] (DEFAULT) [address] [place] [address] 29346 MCHC (RBC) [Mass/Vol] 33 g/dL Normal 26-37 [facility] Comment on above: Performed By: #### 7 034854, 08174611, 7376495694, 8367438611, 1137444815, 92259588 #### [facility] (DEFAULT) [address] [place] [address] 08627 MCV (RBC) [Entitic vol] 89 fL Normal 81-100 [facility] Comment on above: Performed By: #### 7 725616, 66046720, 3398115156, 9617364489, 7504308537, 85093280 #### [facility] (DEFAULT) [address] [place] [address] Platelet 270 x10 Normal 138-[address] [facility] Comment on above: Performed By: #### 7 316220, 88056630, 5062269902, 7603694411, 6835362579, 39258410 #### [facility] (DEFAULT) [address] [place] [address] Platelet mean volume (Bld) [Entitic vol] 10.1 fL Normal 6.3-10.[address] [facility] Comment on above: Performed By: #### 7 429476, 64741524, 7603032775, 6940753592, 6193034740, 49300109 #### [facility] (DEFAULT) [address] [place] [address] RBC 4.32 x10 Normal 3.70-5.[address] [facility] Comment on above: Performed By: #### 7 811985, 16029772, 3257730806, 7844767023, 7215850458, 69597632 #### [facility] (DEFAULT) [address] [place] [address] WBC 5.3 x10 Normal 3.5-10.[address] [facility] Comment on above: Performed By: #### 7 565920, 11263950, 0010442314, 6274004571, 2107555229, 58319250 #### [facility] (DEFAULT) [address] [place] [address] Standardon 04-10-2020 eGFR Non AA >60 Invalid Interpretation Code [facility] Comment on above: Performed By: #### 7 356624, 51209580, 6761118909, 7872743428, 2419561111, 17781289 #### [facility] (DEFAULT) [address] [place] [address] eGFR AA >60 Invalid Interpretation Code [facility] Comment on above: Result Comment: Automatic Spreader Operator roddy Kidney disease could be indicated at eGFRs of less than 60 ml/min/1.73m2. Kidney Failure is indicated at less than 15 ml/min/1.73m2 Performed By: #### 7 866236, 98266110, 3672777363, 1698820194, 5821080821, 26687982 #### [facility] (DEFAULT) [address] [place] [address] Albumin [Mass/Vol] 3.8 g/dL Normal 3.5-5.0 [facility] Comment on above: Performed By: #### 7 670589, 35040113, 3826427937, 9236397630, 8916471189, 54399338 #### [facility] (DEFAULT) [address] [place] [address] Albumin/Globulin [Mass ratio] 1.1 {ratio} Low 1.4-2.[address] [facility] Comment on above: Performed By: #### 7 913387, 54465278, 5417719538, 0727415514, 4688961865, 43763145 #### [facility] (DEFAULT) [address] [place] [address] Alk Phos 40 IU/L Normal 32-[address] [facility] Comment on above: Performed By: #### 7 419803, 71365503, 1712059388, 3428640900, 3098237537, 19867658 #### [facility] (DEFAULT) [address] [place] [address] ALT [Catalytic activity/Vol] 13.0 U/L Low 14.0-54.[address] [facility] Comment on above: Performed By: #### 7 160162, 09811079, 9010333553, 6753102533, 6868582297, 37139671 #### [facility] (DEFAULT) [address] [place] [address] Anion gap [Moles/Vol] 11.0 mmol/L Normal 5.0-19.[address] [facility] Comment on above: Performed By: #### 7 067469, 06866528, 6325672325, 2948174653, 4652954397, 80821406 #### [facility] (DEFAULT) [address] [place] [address] AST [Catalytic activity/Vol] 19 U/L Normal 15-[address] [facility] Comment on above: Performed By: #### 7 453044, 93695355, 6294116316, 9660672220, 8099886970, 81078153 #### [facility] (DEFAULT) [address] [place] [address] 76916 Bili Total 1.1 mg/dL Normal 0.3-1.[address] [facility] Comment on above: Performed By: #### 7 408690, 17557787, 5662302283, 7244319285, 5356045968, 47574173 #### [facility] (DEFAULT) [address] [place] [address] 85105 Calcium [Mass/Vol] 9.1 mg/dL Normal 8.9-10.3 [facility] Comment on above: Performed By: #### 7 771482, 30267426, 9213569076, 8203368364, 4502777937, 73021220 #### [facility] (DEFAULT) [address] [place] [address] 79034 Chloride [Moles/Vol] 107 mmol/L Normal 101-111 [facility] Comment on above: Performed By: #### 7 167969, 23773838, 3899352926, 9263949747, 1771541149, 27760261 #### [facility] (DEFAULT) [address] [place] [address] 04298 CO2 [Moles/Vol] 23 mmol/L Normal 21-[address] [facility] Comment on above: Performed By: #### 7 521841, 34357443, 6331902518, 1214824030, 2444575964, 28766912 #### [facility] (DEFAULT) [address] [place] [address] 55109 Creatinine [Mass/Vol] 0.75 mg/dL Normal 0.60-1.30 [facility] Comment on above: Performed By: #### 7 783722, 18750695, 7205920481, 9520751530, 4574123882, 41643084 #### [facility] (DEFAULT) [address] [place] [address] 43999 Globulin (S) [Mass/Vol] 3.4 g/dL Normal 1.5-4.3 [facility] Comment on above: Performed By: #### 7 213892, 10360647, 4524915057, 2414727397, 6037140730, 32371397 #### [facility] (DEFAULT) [address] [place] [address] 52981 Glucose [Mass/Vol] 98.0 mg/dL Normal 74.0-118.0 [facility] Comment on above: Performed By: #### 7 018544, 23282903, 9784206001, 0438586434, 3627025611, 78930105 #### [facility] (DEFAULT) [address] [place] [address] 94786 Osmolality 276 mOsm/L Invalid Interpretation Code [facility] Comment on above: Performed By: #### 7 726811, 30815776, 6371637348, 2244667260, 0931989939, 14337838 #### [facility] (DEFAULT) [address] [place] [address] 47026 Potassium [Moles/Vol] 4.0 mmol/L Normal 3.6-5.1 [facility] Comment on above: Performed By: #### 7 [id number], [id number], [id number], [id number], [id number], [id number] #### [facility] (DEFAULT) [address] [place] [address]6618 Protein [Mass/Vol] 7.2 g/dL Normal 6.5-8.1 [facility] Comment on above: Performed By: #### 7 [id number], [id number], [id number], [id number], [id number], [id number] #### [facility] (DEFAULT) [address] [place] [address] 32200 Sodium [Moles/Vol] 137.0 mmol/L Normal 136.0-144 . [address] [facility] Comment on above: Performed By: #### 7 [id number], [id number], [id number], [id number], [id number], [id number] #### [facility] (DEFAULT) [address] [place] [address] Urea nitrogen [Mass/Vol] 20 mg/dL Normal 8-[address] [facility] Comment on above: Performed By: #### 7 [id number], [id number], [id number], [id number], [id number], [id number] #### [facility] (DEFAULT) [address] [place] [address] Urea nitrogen/Creatinine [Mass ratio] 27.0 mg/mg High 4.6-16.[address] [facility] Comment on above: Performed By: #### 7 [id number], [id number], [id number], [id number], [id number], [id number] #### [facility] (DEFAULT) [address] [place] [address] HgbA1c Standardon 04-10-2020 .Hb 14.7 Invalid Interpretation Code [facility] Comment on above: Performed By: #### 1 [id number], [id number], [id number], [id number], [id number], [id number] #### [facility] (DEFAULT) [address] [place] [address] 14183 .Hgb A1c 0.51 g/dL Invalid Interpretation Code [facility] Comment on above: Performed By: #### 1 [id number], [id number], [id number], [id number], [id number], [id number] #### [facility] (DEFAULT) [address] [place] [address] Glucose [Mass/Vol] 106 mg/dL Invalid Interpretation Code [facility] Comment on above: Performed By: #### 1 [id number], [id number], [id number], [id number] #### [facility] (DEFAULT) [address] [place] [address] HbA1c (Bld) [Mass fraction] 5.3 % Normal 4.6-6.[address] [facility] Comment on above: Performed By: #### 1 [id number], [id number], [id number] #### [facility] (DEFAULT) [address] [place] [address] Lipid Panel Standardon 04-10 Cholesterol [Mass/Vol] 162.0 mg/dL Normal 66.0-200.0 [facility] Comment on above: Result Comment: Rosalind rable - Less than 200 mg/dL Borderline high risk - 200-239 mg/dL High risk - 240 mg/dL and over. Performed By: #### 7 [id number], [id number] #### [facility] (DEFAULT) [address] [place] [address]35[address] Cholesterol in HDL [Mass/Vol] 64 mg/dL Normal 40-[address] [facility] Comment on above: Result Comment: High risk - <40 mg/dL. Performed By: #### 7 [id number], [id number], [id number] #### [facility] (DEFAULT) [address] [place] [address] 16073 Cholesterol in LDL [Mass/Vol] 90 mg/dL Normal 1-[address] [facility] Comment on above: Result Comment: Opti mal - Less than 100 mg/dL Borderline high risk - 130-159 mg/dL High risk - 160-189 mg/dL. Performed By: #### 7 [id number], [id number], [id number], [id number] #### [facility] (DEFAULT) [address] [place] [address] 11303 Cholesterol.total/Hselley sterol in HDL [Mass ratio] 2.5 {ratio} Normal 0.0-4.[address] [facility] Comment on above: Performed By: #### 7 [id number], [id number], [id number], [id number] #### [facility] (DEFAULT) [address] [place] [address] 12032 Triglyceride [Mass/Vol] 38.0 mg/dL Normal 0.0-150.0 [facility] Comment on above: Performed By: #### 7 [id number], [id number], [id number] #### [facility] (DEFAULT) [address] [place] [address] 88431 VLDL. 8 mg/dL Normal 5-[address] [facility] Comment on above: Performed By: #### 7 [id number], [id number], [id number], [id number] #### [facility] (DEFAULT) [address] [place] [address] Vital Signs Date Time Vital Sign Value Performing Clinician Faci lity 05-06-2024 14:43-0500 Body height 162.56 cm Tess Leahy MD Work Phone: [facility] 05-06-2024 14:43-0500 Body mass index (BMI) [Ratio] 22.5 kg/m2 Tess Leahy MD Work Phone: [facility] 05-06-2024 14:43-0500 Body weight 59.59 kg Tess Leahy MD Work Phone: [facility] 05-06-2024 14:43-0500 Diastolic blood pressure 79 mm[Hg] Tess Lehay MD Work Phone: [facility] 05-06-2024 14:43-0500 Heart rate 55 /min Tess Leahy MD Work Phone: [facility] 05-06-2024 14:43-0500 Systolic blood pressure 121 mm[Hg] Tess Leahy MD Work Phone: [facility] 11-20-2023 15:46-0400 Body height 162.56 cm MD Alis Beth Work Phone: [facility] 11-20-2023 15:46-0400 Body mass index (BMI) [Ratio] 22.7 kg/m2 MD Alis Beth Work Phone: [facility] 11-20-2023 15:46-0400 Body weight 60.04 kg MD Alis Beth Work Phone: [facility] 11-20-2023 15:46-0400 Diastolic blood pressure 72 mm[Hg] MD Alis Beth Work Phone: [facility] 11-20-2023 15:46-0400 Heart rate 54 /min MD Alis Beth Work Phone: [facility] 11-20-2023 15:46-0400 Systolic blood pressure 116 mm[Hg] MD Alis Beth Work Phone: [facility] 08-30-2023 14:03-0400 Blood Pressure Location Anup NILL [facility] 08-30-2023 14:03-0400 Diastolic blood pressure 78 mm[Hg] Anup NILL [facility] 08-30-2023 14:03-0400 Heart rate 72 /min Anup NILL [facility] 08-30-2023 14:03-0400 Respiratory rate 16 /min Anup NILL [facility] 08-30-2023 14:03-0400 Systolic blood pressure 116 mm[Hg] Anup NILL [facility] Encounters Encounter Date Encounter Type Care Provider Facility Start: 05-06-2024 End: 05-06-2024 ambulatory Tess Leahy MD Work Phone: [facility] Work Phone: Start: 05-06-2024 End: 05-06-2024 Patient encounter procedure Tess Leahy MD Work Phone: [facility] Work Phone: Start: 02-14-2024 End: 02-14-2024 ambulatory MD Tess Leahy Work Phone: [facility] Work Phone: Start: 02-14-2024 End: 02-14-2024 Departed Referred MD Tess Leahy Work Phone: [facility] Start: 02-14-2024 Non-patient / Non-visit Tess Leahy MD Work Phone: [facility] Work Phone: Start: 02-14-2024 End: 02-14-2024 ambulatory Anup PEARL Facility::[id number] Start: 01-30-2024 End: 01-30-2024 ambulatory GUILHERME ROMO Not Available Start: 11-20-2023 Patient encounter status MD Alis Beth Work Phone: [facility] Start: 11-20-2023 End: 11-20-2023 ambulatory MD Alis Beth Work Phone: [facility] Work Phone: Start: 11-20-2023 End: 11-20-2023 Encounter for general adult medical examination without abnormal findings MD Alis Beth Work Phone: [facility] Start: 11-20-2023 End: 11-20-2023 Patient encounter procedure MD Alis Beth Work Phone: [facility] Work Phone: Start: 11-14-2023 Non-patient / Non-visit MD Alis Beth Work Phone: [facility] Work Phone: Start: 11-07-2023 Non-patient / Non-visit MD Alis Beth Work Phone: [facility] Work Phone: Start: 10-11-2023 End: 10-11-2023 ambulatory MD Alis Beth Work Phone: [facility] Work Phone: Start: 10-11-2023 End: 10-11-2023 Departed Referred MD Alis Beth Work Phone: [facility] Start: 10-11-2023 Non-patient / Non-visit MD Alis Beth [facility] Phone[facility] Work Phone: Start: 10-11-2023 End: 10-11-2023 ambulatory Anup R KATHARINEL Facility:CD:[id number] Start: 08-30-2023 End: 08-30-2023 ambulatory Anup R NILL Facility: [facility] Start: 08-30-2023 End: 08-30-2023 Patient encounter procedure Anup R NILL [facility] Start: 08-16-2023 ambulatory Anup ALCANTARL Facility:[facility] Start: 06-26-2023 End: 06-26-2023 ambulatory TRISTON WALKER Not Available Start: 11-11-2022 End: 11-12-[address] STEVE DAS . Facility:[facility] Start: 11-05-2022 Encounter for genera l adult medical examination without abnormal findings DR TESS LEAHY [facility] Start: 11-01-2022 End: 11-02-[address] TESS LEAHY Facility:[facility] Start: 11-01-2022 End: 11-02-2022 Encounter for general adult medical examination without abnormal findings DR TESS LEAHY Facility:[facility] Start: 06-23-2022 End: 06-23-[address] STEVE DAS . Facility: Procedures Date Procedure Procedure Detail Performing Clinician Start: 11-02-2016 Colonoscopy Anup NI LL Start: 11-02-2016 Esophagogastroduodenoscopy Anup NILL Start: 01-19-2011 Colonoscopy Anup NI LL Start: 01-19-2011 Esophagogastroduodenoscopy Anup NILL section Anup NIL L Cholecystectomy Anup NILL Excision of ganglion of foot Anup NILL Plan of Treatment Date Care Activity Detail Author MR Caden carrera [facility] Immunizations Immunization Date Immunization Notes Care Provider Kat delgado 03-19-2023 influenza virus vaccine, unspecified formulation Anup NILL [facility] 05-05-2021 SARS-CoV-2 (COVID-19 ) Ad26 vaccine, recombinant Anup NILL [facility] [place] Comment on above: Result Comment: 2023: [id number] Payers Date Payer Category Payer Self-pay 2022 Unknown [id number] 1970 Unknown [id number] 2.16.84 [id number] 1970 Unknown [id number] 2.16.84 [id number] 1971 Unknown [id number] 2.16.84 [id number] 1971 Unknown [id number] 2.16.84 [id number] 1971 Unknown [id number] 2.16.84 [id number] 1971 Unknown [id number] 2.16.8 [id number] 1971 Unknown [id number] 2.16.8 [id number] 1971 Unknown [id number] 2.16.8 [id number] Unknown [facility] Net[employer] Access [id number] Unknown [id number] 2.16.8 [id number] Unknown [id number] Social History Date Type Detail Facility Start: 08-30-2023 End: 11-20-2023 Tobacco smoking status Ex-smoker (finding) [facility] Tobacco smoking status Never [facility] Sex Assigned At Female [facility] Start: 1970 Sex Assigned At Female [facility] Start: 05-06-2024 Sex Female (finding) [facility] Functional Status Date Assessment Result Facility 08-30-2023 Functional Status N/A [facility] Clinical Note 08-30-2023 Note Date & Type Note Facility 08-30-2023 Note Chief Complaint consultation for HPI Staff 52 year old female presents on [...] no melena, no bowel changes; last colonoscopy 2016 with mild sigmoid diverticulosis; abd operations significant [...] been reviewed and are negative or noncontributory. ; Physical Exam Vitals & Measurements HR: 72(Peripheral) [...] (COVID-19) Ad26 vaccine 05/05/2021 Recorded 2023-08-21: [id number] [facility] Comment on above: Result Comment: Elec tronically Signed By: DAE ROSALES, Anup Ernst\Date and Time Signed: 08/30/23 16:41 EDT Evaluation note 02-14-2013 Note Date & Type Note Facility 02-14-2013 Evaluation note Diagnosis Onset Date Hypothyroidism, unspecified February 14, 2013 acute Wellness examination acute [facility] Work Phone: Evaluation + Plan note Note Date & Type Note Facility Evaluation + Plan note No data available for this section [facility] Evaluation note Note Date & Type Note Facility Evaluation note No assessment information availa [facility] Work Phone: Evaluation note Note Date & Type Note Facility Evaluation note Diagnosis Onset Date Resolution Concern about memory acute Nove mber 2023 2:28pm Headache acute May 06, 2024 2:28pm [facility] Work Phone: Hospital Discharge instructions Note Date & Type Note Facility Hospital Discharge instructions No data available for this section [facility] Progress note Note Date & Type Note Facility Progress note No data available for this section [facility] Summary Purpose Family History No Family History Records FoundNo Family History Records Found No data available for this section No Family History Records FoundNo Family History Records FoundNo Family History Records Found Advance Directives Advance Directive Response Recorded Date/ Time Advance Directives No November 19 3:25pm Advance Directive Response Recorded Date/ Time Advance Directives No November 19 2:25pm Chief Complaint and Reason for Visit Chief Complaint Admit Date Unknown February 14, 2024 10 :42am Headaches May 06, 2024 2:28pm Reason for Visit Admit Date Concern about memory May 06, 2024 2:28pm Headache May 06, 2024 2:28pm Chief Complaint Unknown Amb Documentation WELLNESS Reason for Visit Hypothyroidism, unsp ecified Wellness examination Additional Source Comments INFORMATION SOURCE (unrecogn ized section and content) DATE CREATED AUTHOR 04/04/2021 [facility] DATE CREATED AUTHOR AUTHOR'S ORGANIZ ATION 11/25/2022 [facility] DATE CREATED AUTHOR AUTHOR'S ORGANIZ ATION 02/01/2024 [facility] EPIC DATE CREATED AUTHOR AUTHOR'S ORGANIZ ATION 02/25/2024 [facility] DATE CREATED AUTHOR AUTHOR'S ORGANIZ ATION 02/27/2024 [facility] Patient Care team informatio n (unrecognized section and content) Team Status: Active Member Role Status Dates Tess Leahy MD Primary Care Provider Active Team Status: Active Member Role Status Dates Tess Leahy MD Primary Care Provide r, Attending Provider Active Start: February 14, 2024 Team Status: Inactive Member Role Status Dates Tess Leahy MD Primary Care Provider Active Start: February 14, 2024 End: February 14, 2024 Anup Pearl MD [facility] Attending Provider Active Start: February 14, 2024 End: February 14, 2024 Team Status: Inactive Member Role Status Dates Tess Leahy MD Primary Care Provide r, Attending Provider Active Start: May 06, 2024 End: May 06, 2024 Team Status: Active Member Role Status Dates Tess Leahy MD Primary Care Provider Active Team Status: Inactive Member Role Status Dates Tess Leahy MD Primary Care Provide r, Attending Provider Active Start: November 20, 2023 End: November 20, 2023 Team Status: Inactive Member Role Status Dates Tess Leahy MD Primary Care Provider Active Start: February 14, 2024 End: February 14, 2024 Anup Pearl MD FACS Attending Provider Active Start: February 14, 2024 End: February 14, 2024 Team Status: Active Member Role Status Natanael Beth MD Primary Care Provider Active Team Status: Active Member Role Status Natanael Beth MD Primary Care Provider Active S tart: October 11, 2023 Tess Leahy MD Attending Provider Active St art: October 11, 2023 Team Status: Inactive Member Role Status Natanael Beth MD Primary Care Provider Active S tart: October 11, 2023 End: October 11, 2023 Anup Pearl MD FACS Attending Provider Active Start: October 11, 2023 End: October 11, 2023 Team Status: Active Member Role Status Natanael Beth MD Primary Care Provider Active S tart: November 07, [address] Attending Provider Active Start : November 07, 2023 Team Status: Active Member Role Status Natanael Leahy MD Primary Care Provide r, Attending Provider Active Start: November 14, 2023 Team Status: Active Member Role Status Dates Tess Leahy MD Primary Care Provide r, Attending Provider Active Start: February 14, 2024 Team Status: Inactive Member Role Status Natanael Leahy MD Primary Care Provide r, Attending Provider Active Start: May 06, 2024 End: May 06, 2024 Goals (unrecognized section and content) Goals may be documented in a n alternate section FOR RECORDS PERTAINING TO PATIENTS WHO ARE [...] BE BASED ON THE PRIMARY CLINICAL RECORDS. [facility] RF Code [facility]. provides no warranty or guarantee of the accuracy or completeness of information in this document.
== END 2024-05-14 07:14 | disposition home or self-care (01) ==
LOC: MRI 07:14
PROVIDERS: PCP Family Medicine; Visit Provider Family Medicine
DX: R51.9 Headache, unspecified (principal); Z71.1 Person with feared health complaint in whom no diagnosis is made; J01.80 Other acute sinusitis; J32.8 Other chronic sinusitis
CPT/HCPCS: 70551

== ENCOUNTER 2024-07-10 19:11 | Outpatient (REF) | payer BC, SELFPAY ==
--- OUTSIDE RECORDS SUMMARY | 2024-07-10 19:16 | XMS_ITS | CCD ---
Author Organization [facility] Care Team Providers Care Compactor Driver Name Role Phone PIPPA ., DR WILSON Admitting Unavailabl e KARCHIP ., DR WILSON Consulting Unavailabl e KARCHIP ., DR WILSON Attending Unavailklaus e ARMOND, DR TESS Pickard Primary Care Unavailable [place], DR TYLOR Whitney Consulting Unavailable LEAHY, DR TESS Pickard Consulting Unavailable ARMOND, DR ETSS Pickard Attending Unavailable ARMOND, DR TESS Pickard Admitting Unavailable ARMOND, DR TESS Pickard Primary Care Unavailable KARCHIP ., DR WILSON Admitting Unavailabl e KARASIK ., DR WILSON Consulting Unavailabl e KARCHIP ., DR WILSON Attending Unavailklaus e ARMOND, DR TESS Pickard Primary Care Unavailable TESS LEAHY Primary Care Physician [phone] MD Alis Beth Primary Care Provider MD Anup Pearl Attending Provider [phone] TRISTON WALKER Attending Unavailable GUILHERME ROMO Attending Unavailable MD Tess Leahy Primary Care Provider MD Anup Pearl Attending Provider Tess Leahy Primary Care Unavailable Anup Pearl Admitting Unavailable Dae, Anup Frias Attending Unavailable Anup Pearl Attending Unavailable Alis Beth Primary Care Unavailable Anup Pearl Admitting Unavailable Anup PEARL Attending Unavailable Anup PEARL Attending Unavailable Anup PEARL Attending Unavailable Tess Leahy MD Primary Care Provider [phone] Anup Pearl MD Attending Provider [phone] Allergies Allergy Classification Reported Allergen(s) Allergy Type Date of Onset Reaction(s) Facility (1 source) No Known Medication Allergies; Translations: [No Known Medication Allergies] Propensity to adverse reactions (disorder) [facility] Repository Medications Current Medications Medication Drug Class(es) [...] Basophils (Bld) [#/Vol] Automated basophil count 0.0-0.1 [facility] Basophils/100 WBC Auto (Bld) on 02-14-2024 Basophils/100 WBC (Bld) Automated basophil % 0. 2-2.0 [facility] Eosinophils/100 WBC Auto (Bl d)on 02-14-2024 Eosinophils/100 WBC (Bld) Automated eosinophil % High 0.9-7.0 [facility] Erythrocyte distribution wid th Auto (RBC) [Ratio]on 02-14-2024 Erythrocyte distribution width (RBC) [Ratio] Erythrocyte distribution width [Ratio] by Automated count 11.0-15.0 [facility] HCG ( test) IA.rapi d Ql (U)on 02-14-2024 HCG ( test) Ql (U) Urine human chorionic gonadotropin (hCG) detection by immunoassay NEGATIVE [facility] Hematocrit Auto (Bld) [Volum e fraction]on 02-14-2024 Hematocrit (Bld) [Volume fraction] Hematocrit [Volume Fraction] of Blood by Automated count 36.0-48.0 [facility] Hemoglobin [Mass/volume] in Bloodon 02-14-2024 Hemoglobin (Bld) [Mass/Vol] Hemoglobin [Mass/volume] in Blood 12.0-16.0 [facility] Shahab 02-14-2024 L Specimen: [id number] Received: 02/15/24 [facility] Num: [id number] Spec Type: Surgical Subm Dr: Anup Pearl MD FACS Tissues: A Esophagus Biopsy (ANTRAL ULCER BX) Procedures: HE/2, Gross/Micro L4 Age/ Patient Sex Location Account Attending Physician Ioana Marie 53/F LABELL [id number] Anup Pearl MD FACS SPEC NUM: [id number] RECD: 02/15/24 STATUS: [facility] NUM: [id number] CARYN: 02/14/[address]: Anup Pearl MD FACS ENTERED: 02/15/[address] [facility] [address]: Prerna Lee SPEC TYPE: Surgical DEPT: JEFRY TRUONG ENTERED BY: [id number] RECV BY: [id number] ORDERED: HE/2, Gross/Micro L4 ORDERED: HE/2, Gross/Micro [...] is entirely submitted in cassette A1. Specimen: [id number] Received: 02/15/24 Status: [facility]unn Num: [id number] Spec Type: Surgical Subm Dr: Anup Pearl MD FACS Tissues: A Esophagus Biopsy (ANTRAL ULCER BX) Procedures: HE/Jennifer, Gross/Micro L4 Patient: Ioana Marie [id number] (Continued) Specimen: [id number] Received: 02/15/24 (Continued) Signed (signature on file) Samantha Hirsch MD 02/23/24 0923 Specimen: [id number] Received: 02/15/24 Status: [facility]AT[facility] [place] Num: [id number] Spec Type: Surgical Subm Dr: Anup Pearl MD FACS Tissues: A Esophagus Biopsy (ANTRAL ULCER BX) Procedures: HE/2, Gross/Micro L4 Patient: AníbalmaryIoana [id number] (Continued) Specimen: [id number] Received: 02/15/24 (Continued) Microscopic Description Microscopic examinations are performed supporting the above interpretation CPT Codes 11275 Specimen: [id number] Received: 02/15/24 Status: [facility]ATIE Quinn Num: [id number] Spec Type: Surgical Subm Dr: Anup Pearl MD FACS Tissues: A Esophagus Biopsy (ANTRAL ULCER BX) Procedures: HE/2, Gross/Micro L4 Patient: Ioana Marie [id number] (Continued) Signed (signature on file) Samantha Hirsch MD 02/23/24922 Normal [facility] Laboratory - Hematology and Cell countson 02-14-2024 Immature granulocytes/100 WBC (Bld) 0.2 % 0.0-0.5 [facility] Leukocytes [#/volume] correc stephanie for nucleated erythrocytes in Blood by Automated counon 02-14-2024 WBC corrected for nucl RBC Auto (Bld) [#/Vol] Leukocytes [#/volume] corrected for nucleated erythrocytes in Blood by Automated coun 4.0-11.0 [facility] Lymphocytes Auto (Bld) [#/Vo l]on 02-14-2024 Lymphocytes (Bld) [#/Vol] Lymphocytes [#/volume] in Blood by Automated count 1.2-3.8 [facility] Lymphocytes/100 WBC Auto (Bl d)on 02-14-2024 Lymphocytes/100 WBC (Bld) Lymphocytes/100 leukocytes in Blood by Automated count 20.5-60.0 [facility] MCH Auto (RBC) [Entitic mass ]on 02-14-2024 MCH (RBC) [Entitic mass] MCH [Entitic mass] by Automated count 26.7-34.0 [facility] MCHC Auto (RBC) [Mass/Vol]on 02-14-2024 MCHC (RBC) [Mass/Vol] MCHC [Mass/volume] by Automated count 29.9-35.2 [facility] MCV Auto (RBC) [Entitic vol] on 02-14-2024 MCV (RBC) [Entitic vol] MCV [Entitic vol ume] by Automated count 81.0-99.0 [facility] Monocytes Auto (Bld) [#/Vol] on 02-14-2024 Monocytes (Bld) [#/Vol] Automated blood monocyte count 0.3-0.8 [facility] Monocytes/100 WBC Auto (Bld) on 02-14-2024 Monocytes/100 WBC (Bld) Automated monocyte % 1. 7-12.0 [facility] Neutrophils Auto (Bld) [#/Vo l]on 02-14-2024 Neutrophils (Bld) [#/Vol] Neutrophils [#/volume] in Blood by Automated count 1.4-6.5 [facility] Neutrophils/100 WBC Auto (Bl d)on 02-14-2024 Neutrophils/100 WBC (Bld) Automated neutrophil % Low 43.0-75.0 [facility] No Panel Informationon 02-13 Eosinophils # (Auto) 1.2 10 3/uL High 0.0-0.7 [facility] Immature Granulocyte # (Auto) 0.01 10 3/uL 0.00-0.03 [facility] Platelet mean volume Auto (B ld) [Entitic vol]on 02-14-2024 Platelet mean volume (Bld) [Entitic vol] Platelet mean volume [Entitic volume] in Blood by Automated count 9.5-13.5 [facility] Platelets Auto (Bld) [#/Vol] on 02-14-2024 Platelets (Bld) [#/Vol] Platelets [#/vol ume] in Blood by Automated count 150-450 [facility] RBC Auto (Bld) [#/Vol]on RBC (Bld) [#/Vol] Erythrocytes [#/volu me] in Blood by Automated count 4.20-5.40 [facility] Basophils Auto (Bld) [#/Vol] on 11-14-2023 Basophils (Bld) [#/Vol] 0.1 10 3/uL 0.0-0.1 [facility] Basophils/100 WBC Auto (Bld) on 11-14-2023 Basophils/100 WBC (Bld) 0.8 % 0.2-2.[address] [facility] Cholesterol in LDL Calc [Mas s/Vol]on 11-14-2023 Cholesterol in LDL [Mass/Vol] 88.0 mg/dL [facility] Comment on above: <100 mg/dl [id number] 0-129 mg/dl NEAR OR ABOVE [id number] mg/dl BORDERLINE [id number] mg/dl HIGH>190 mg/dl VERY HIGH Cholesterol in VLDL Calc [Ma ss/Vol]on 11-14-2023 Cholesterol in VLDL [Mass/Vol] 10.2 mg/dL [facility] Eosinophils/100 WBC Auto (Bl d)on 11-14-2023 Eosinophils/100 WBC (Bld) 11.7 % 0.9-7.0 [facility] Erythrocyte distribution wid th Auto (RBC) [Ratio]on 11-14-2023 Erythrocyte distribution width (RBC) [Ratio] 12.0 % 11.0-15.0 [facility] Estimated glomerular filtrat ion rate (GFR) non- Americanon 11-14-2023 GFR/1.73 sq M.predicted among non-blacks MDRD (S/P/Bld) [Vol rate/Area] mL/min/{1.73_m2} >=60 [facility] Globulin Calc (S) [Mass/Vol] on 11-14-2023 Globulin (S) [Mass/Vol] 3.4 g/dL F [facility] Hematocrit Auto (Bld) [Volum e fraction]on 11-14-2023 Hematocrit (Bld) [Volume fraction] 39.6 % 36.0-48.0 [facility] Hemoglobin [Mass/volume] in Bloodon 11-14-2023 Hemoglobin (Bld) [Mass/Vol] 13.2 g/dL 12.0-16.0 [facility] Laboratory - Chemistry and C hemistry - challengeon 11-14-2023 Albumin [Mass/Vol] 3.4 g/dL 3.4-5.0 [facility] ALP [Catalytic activity/Vol] 51 U/L 46-116 [facility] ALT [Catalytic activity/Vol] 16 U/L 14-59 [facility] AST [Catalytic activity/Vol] 21 U/L 15-37 [facility] Bilirubin [Mass/Vol] 1.1 mg/dL 0.2-1.0 [facility] Calcium [Mass/Vol] 8.7 mg/dL 8.5-10.1 [facility] Chloride [Moles/Vol] 103 mmol/L 98-107 [facility] Cholesterol [Mass/Vol] 177 mg/dL <=200 [facility] Cholesterol in HDL [Mass/Vol] 79 mg/dL 40-60 [facility] Comment on above: > or =60 mg/dl - LOW CARDIOVASCULAR RISK<40 mg/dl - HIGH CARDIOVASCULAR RISK CO2 [Moles/Vol] 27.1 mmol/L 21.0-32.0 [facility] Creatinine [Mass/Vol] 0.81 mg/dL 0.55-1.02 [facility] GFR/1.73 sq M.predicted MDRD (S/P/Bld) [Vol rate/Area] mL/min/{1.73_m2} >=60 [facility] Glucose [Mass/Vol] 92 mg/dL 74-106 [facility] Potassium [Moles/Vol] 4.4 mmol/L 3.5-5.1 [facility] Protein [Mass/Vol] 6.8 g/dL 6.4-8.2 [facility] Sodium [Moles/Vol] 137 mmol/L 136-145 [facility] Triglyceride [Mass/Vol] 51 mg/dL <=[address] [facility] Urea nitrogen [Mass/Vol] 21.0 mg/dL 7.0-18.0 [facility] Urea nitrogen/Creatinine [Mass ratio] 25.9 mg/mg [facility] Laboratory - Hematology and Cell countson 11-14-2023 Immature granulocytes/100 WBC (Bld) 0.2 % 0.0-0.5 [facility] Leukocytes [#/volume] correc stephanie for nucleated erythrocytes in Blood by Automated counon 11-14-2023 WBC corrected for nucl RBC Auto (Bld) [#/Vol] 8.4 10 3/uL 4.0-11.0 [facility] Lymphocytes Auto (Bld) [#/Vo l]on 11-14-2023 Lymphocytes (Bld) [#/Vol] 1.7 10 3/uL 1.2-3.8 [facility] Lymphocytes/100 WBC Auto (Bl d)on 11-14-2023 Lymphocytes/100 WBC (Bld) 20.5 % 20.5-60.0 [facility] MCH Auto (RBC) [Entitic mass ]on 11-14-2023 MCH (RBC) [Entitic mass] 31.7 pg 26.7-34.0 [facility] MCHC Auto (RBC) [Mass/Vol]on 11-14-2023 MCHC (RBC) [Mass/Vol] 33.3 g/dL 29.9-35.2 [facility] MCV Auto (RBC) [Entitic vol] on 11-14-2023 MCV (RBC) [Entitic vol] 95.2 fL 81.0-99.[address] [facility] Monocytes Auto (Bld) [#/Vol] on 11-14-2023 Monocytes (Bld) [#/Vol] 0.5 10 3/uL 0.3-0.8 [facility] Monocytes/100 WBC Auto (Bld) on 11-14-2023 Monocytes/100 WBC (Bld) 5.5 % 1.7-12.[address] [facility] Neutrophils Auto (Bld) [#/Vo l]on 11-14-2023 Neutrophils (Bld) [#/Vol] 5.2 10 3/uL 1.4-6.5 [facility] Neutrophils/100 WBC Auto (Bl d)on 11-14-2023 Neutrophils/100 WBC (Bld) 61.3 % 43.0-75.0 [facility] No Panel Informationon 11-13 Eosinophils # (Auto) 1.0 10 3/uL 0.0-0.7 [facility] Immature Granulocyte # (Auto) 0.02 10 3/uL 0.00-0.03 [facility] Platelet mean volume Auto (B ld) [Entitic vol]on 11-14-2023 Platelet mean volume (Bld) [Entitic vol] 10.3 fL 9.5-13.5 [facility] Platelets Auto (Bld) [#/Vol] on 11-14-2023 Platelets (Bld) [#/Vol] 235 10 3/uL 150-450 [facility] RBC Auto (Bld) [#/Vol]on RBC (Bld) [#/Vol] 4.16 10 6/uL 4.20-5.40 [facility] Serum or plasma albumin/glob ulin mass ratioon 11-14-2023 Albumin/Globulin [Mass ratio] 1.0 {ratio} [facility] Serum or plasma anion gap de terminationon 11-14-2023 Anion gap [Moles/Vol] 11.3 mmol/L [facility] Serum or plasma total choles terol/high density lipoprotein (HDL) cholesterol mass abdirashid 11-14-2023 Cholesterol.total/Shelley sterol in HDL [Mass ratio] 2.2 {ratio} [facility] Comment on above: 3.3 - 4.4 LOW RISK4. 4 - 7.1 AVERAGE RISK7.1 - 11.0 MODERATE RISK>11.0 HIGH RISK Glucose mean value [Mass/vol ume] in Blood Estimated from glycated hemoglobinon 11-07-2023 Average glucose Estimated from glycated hemoglobin (Bld) [Mass/Vol] 105 mg/dL [facility] Laboratory - Chemistry and C hemistry - challengeon 11-07-2023 Ferritin [Mass/Vol] 35.0 ng/mL 8.0-252.0 [facility] Free T4 [Mass/Vol] 0.96 ng/dL 0.76-1.46 [facility] Glucose [Mass/Vol] 88 mg/dL 74-106 [facility] T4 [Mass/Vol] 7.70 ug/dL 4.80-13.90 [facility] TSH Qn 2.126 m[IU]/L 0.358-3.74 0 [facility] Laboratory - Hematology and Cell countson 11-07-2023 HbA1c (Bld) [Mass fraction] 5.3 % 4.5-6.2 [facility] Comment on above: ADA RECOMMENDED LIMI T 4.0 - 6.0ADA THERAPEUTIC TARGET < 7.0ACTION SUGGESTED> 7.0 No Panel Informationon 11-06 25-Hydroxy Vitamin D Total 29.1 ng/mL [facility] Comment on above: <20 ng/mL Vit D defi cient20-<30 ng/mL Vit D gogrvpqwiowu06-176 ng/mL Vit D sufficient>100 ng/mL Potential Toxicity C-Peptide 1.4 ng/mL 1.1-4.4 [facility] Comment on above: C-Peptide reference interval is for fasting patients. C-Peptide reference interval is for fasting patients. Dehydroepiandrosterone Sulfate 79.4 ug/dL 41.2-243.7 [facility] Free Cortisol, Dialysis, LCMS 0.524 ug/dL . [facility] Comment on above: These tests were dev eloped and their performancecharacteristics determined by [facility]. They have not beencleared or approved by the Food and Drug Administration.Reference Range:8 AM 0.10 - 1.204 PM 0.042 - 0.872Performed at: [facility] [employer] [id number] [place], [place] [id number] Director: Shiv Padron MD, Phone: [phone] Free Triiodothyronine 2.33 pg/mL 2.18-3.98 [facility] Reverse Triiodothyronine (T3) 16.0 ng/dL 9.2-24.1 [facility] Comment on above: This test was develo ped and its performance characteristicsdetermined by [facility]. It has not been cleared orapproved by the Food and Drug Administration.Performed at: [address] [id number] Director: Jennifer Ruff MD, Phone: [phone] Sex Hormone Binding Globulin 107.0 nmol/L 17.3-125.0 [facility] Comment on above: Performed at: [facility] [address] [id number] Director: Mark Gallardo PhD, Phone: [phone] Performed at: [employer] [facility] [address] [id number] Director: Mark Gallardo PhD, Phone: [phone] Testosterone Level 15 ng/dL 4-50 [facility] Serotonin (P) [Mass/Vol]on 0 11-07-2023 Serotonin 170 ng/mL 31-207 [facility] Comment on above: This test was develo ped and its performance characteristicsdetermined by [employer]. It has not been cleared orapproved by the Food and Drug Administration.Performed at: [address] [id number] Director: Jennifer Ruff MD, Phone: [phone] This test was develo ped and its performance characteristicsdetermined by [employer]. It has not been cleared orapproved by the Food and Drug Administration.Performed at: [address] [id number] Director: Jennifer Ruff MD, Phone: [phone] Serum estrone measurementon 11-07-2023 E1 [Mass/Vol] 106 pg/mL . [facility] Comment on above: Range Adult (Premeno pausal) 27 - 231 Menstrual Cycle (1-10 days) 19 - 149 Menstrual Cycle (11-20 days) 32 - 176 Menstrual Cycle (21-30 days) 37 - 200 Adult (Postmenopausal) 0 - 125Performed at: [address] [id number] Director: Jennifer Ruff MD, Phone: [phone] Serum or plasma estradiol (E 2) measurement (mass/volume)on 11-07-2023 E2 [Mass/Vol] 238.0 pg/mL . [facility] Comment on above: Adult Female Range F ollicular phase 12.5 - 166.0 Ovulation phase 85.8 - 498.0 Luteal phase 43.8 - 211.0 Postmenopausal <6.0 - 54.7 1st trimester 215.0 - >4300.0Roche ECLIA methodology Serum or plasma insulin hanna urement (units/volume)on 11-07-2023 Insulin Qn 3.5 u[iU]/mL 2.6-24.9 [facility] Comment on above: Performed at: [employer] [address] [id number] Director: Mark Gallardo PhD, Phone: [phone] Serum or plasma progesterone measurement (mass/volume)on 11-07-2023 Progesterone [Mass/Vol] 0.5 ng/mL . F [facility] Comment on above: Follicular phase 0.1 - 0.9 Luteal phase 1.8 - 23.9 Ovulation phase 0.1 - 12.0 First trimester 11.0 - 44.3 Second trimester 25.4 - 83.3 Third trimester 58.7 - 214.0 Postmenopausal 0.0 - 0.1 TPO Ab Qnon 11-07-2023 Thyroid Peroxidase Antibodies 382 [IU]/mL 0-34 [facility] Testosterone Free [Mass/Vol] on 11-07-2023 Free Testosterone 0.8 pg/mL 0.0-4.[address] [facility] Comment on above: Performed at: [employer] [place], [place] [id number] Director: Mark Gallardo PhD, Phone: [phone] at: [employer] [id number] Director: Jennifer Ruff MD, Phone: [phone] Performed at: [facility] [place], [place] [id number] Director: Mark Gallardo PhD, Phone: [phone] at: [facility] [id number] Director: Jennifer Ruff MD, Phone: [phone] Thyroglobulin Ab Qnon 2023 Anti-Thyroglobulin Antibody 933.8 [IU]/mL 0.0-0.9 [facility] Comment on above: Thyroglobulin Antibo dy measured by Radha iPeenMethodologyIt should be noted that the presence of thyroglobulinantibodies may not be pathogenic nor diagnostic, especiallyat very low levels. The assay consumer electronics merchandiser has found thatfour percent of individuals without evidence of thyroiddisease or autoimmunity will have positive TgAb levels upto 4 IU/mL.Performed at: [facility] [employer] [id number] Director: Mark Gallardo PhD, Phone: [phone] Thyroglobulin Antibo dy measured by REQQIMethodologyIt should be noted that the presence of thyroglobulinantibodies may not be pathogenic nor diagnostic, especiallyat very low levels. The assay consumer electronics merchandiser has found thatfour percent of individuals without evidence of thyroiddisease or autoimmunity will have positive TgAb levels upto 4 IU/mL.Performed at: [facility] [employer] [id number] Director: Mark Gallardo PhD, Phone: [phone] Thyroglobulin Antibo dy measured by G2 Web ServicesologyIt should be noted that the presence of thyroglobulinantibodies may not be pathogenic nor diagnostic, especiallyat very low levels. The assay consumer electronics merchandiser has found thatfour percent of individuals without evidence of thyroiddisease or autoimmunity will have positive TgAb levels upto 4 IU/mL.Performed at: [facility] [employer] [id number] Director: Mark Gallardo PhD, Phone: [phone] Thyroglobulin [Mass/volume] in Serum or Plasmaon 11-07-2023 Thyroglobulin [Mass/Vol] 9.4 ng/mL . [facility] Comment on above: This test was develo ped and its performance characteristicsdetermined by [employer]. It has not been cleared or approvedby [...] assay quantitation limit is 2.0 ng/mL.Performed at: [employer] [address] [place], [place] [id number] Director: Shiv Padron MD, Phone: [phone] Operative Reporton Operative Report [id number]#1.00TIFF Normal [facility] Pathology Noteon 10-13-2023 Pathology Note [id number]#1.00TIFF Normal [facility] HCG ( test) IA.rapi d Ql (U)on 10-11-2023 HCG ( test) Ql (U) Negative NEGATIVE [facility] Shahab 10-11-2023 L Specimen: [id number] Received: 10/11/23 Status: [facility] Re Num: [id number] Spec Type: Surgical Subm Dr: Anup Pearl MD FACS Tissues: A Stomach - Biopsy/Polyp (ANTRUM BX) Procedures: HE/2, Gross/Micro L4 Age/ Patient Sex Location Account Attending Physician FrankIoana 52/F LABELL [id number] Anup Pearl MD FACS SPEC NUM: [id number] RECD: 10/11/23 STATUS: [facility] NUM: [id number] CARYN: 10/11/[address]: Anup Pearl MD FACS ENTERED: 10/11/[address] [facility] [address]: Prerna Lee SPEC TYPE: Surgical [...] Antral ulcer, small hiatal hernia CPT Codes 98887, 24711 Specimen: [id number] Received: 10/11/23 Status: [facility] Num: [id number] Spec Type: Surgical Subm Dr: Anup Pearl MD FACS Tissues: A Stomach - Biopsy/Polyp (ANTRUM BX) Procedures: HE/2, Gross/Micro L4 Patient: Ioana Marie [id number] (Continued) Signed (signature on file) Joshua Marshall MD 10/12/23 1548 Normal [facility] Lab Reportson 10-11-2023 Lab Reports [id number]#1.00TIFF Normal [facility] Pre-Certification Formon Pre-Certification Form [id number]#1.00TIFF Normal [facility] Consent for Procedure/Surger yon 08-31-2023 Consent for Procedure/Surgery [id number]#1.00TIFF Normal [facility] Facesheeton 08-31-2023 Facesheet [id number]#1.00TIFF Normal [facility] Ambulatory Visit Summaryon 0 08-30-2023 Ambulatory Visit [...] for choosing us for your care. Normal [facility] MG MAMM SCREEN 3D CHRISTAL CADon 11-11-2022 MG MAMM SCREEN 3D CHRISTAL CAD Patient: IOANA MARIE Exam Date: 11/11/2022 : 1970 Gender:F Ordering : DR TRISTON WALKER . Admission #: [id number] Family : Order #: [id number] CLICK HERE TO VIEW EXAM RADIOLOGY REPORT [...] breast cancer at age 69. LOCATION: [facility] BREAST COMPOSITION: Extremely dense, which lowers [...] MD on 11/11/2022 at 13:58 Normal [facility] CBC AUTO DIFFon 11-01-2022 BASO # 0.1 103/ul Normal 0.0-0.1 [facility] Comment on above: Performed By: #### C BC #### [facility] [address] [place] [address] Dr. Edelmira Hirsch Basophils/100 WBC (Bld) 1.0 % Normal 0.2-2.0 [facility] Comment on above: Performed By: #### C BC #### [facility] [address] [place] [address] Dr. Edelmira Hirsch EO # 1.0 103/ul Critically high 0.0-0.7 [facility] Comment on above: Performed By: #### C BC #### [facility] [address] [place] [address] Dr. Edelmira Hirsch Eosinophils/100 WBC (Bld) 13.9 % Critically high 0.9-7.0 [facility] Comment on above: Performed By: #### C BC #### [facility] [address] [place] [address] Dr. Edelmira Hirsch Erythrocyte distribution width (RBC) [Ratio] 12.2 % Normal 11.0-15.0 [facility] Comment on above: Performed By: #### C BC #### [facility] [address] [place] [address] Dr. Edelmira Hirsch Hematocrit (Bld) [Volume fraction] 40.5 % Normal 36.0-48.0 [facility] Comment on above: Performed By: #### C BC #### [facility] [address] [place] [address] Dr. Edelmira Hirsch Hemoglobin (Bld) [Mass/Vol] 13.8 g/dL Normal 12.0-16.0 [facility] Comment on above: Performed By: #### C BC #### [facility] [address] [place] [address] Dr. Edelmira Hirsch IG # 0.02 10e3/ul Normal 0.00-0.03 [facility] Comment on above: Performed By: #### C BC #### [facility] [address] [place] [address] Dr. Edelmira Hirsch IG % 0.3 % Normal 0.0-0.5 [facility] Comment on above: Performed By: #### C BC #### [facility] [address] [place] [address] Dr. Edelmira Hirsch LYMPH # 1.8 103/ul Normal 1.2-3.8 [facility] Comment on above: Performed By: #### C BC #### [facility] [address] [place] [address] Dr. Edelmira Hirsch Lymphocytes/100 WBC (Bld) 24.6 % Normal 20.5-60.0 [facility] Comment on above: Performed By: #### C BC #### [facility] [address] [place] [address] Dr. Edelmira Hirsch MANUAL DIFF REQ NO Normal [facility] Comment on above: Performed By: #### C BC #### [facility] [address] [place] [address] Dr. Edelmira Hirsch MCH (RBC) [Entitic mass] 32.2 pg Normal 26.7-34.0 [facility] Comment on above: Performed By: #### C BC #### [facility] [address] [place] [address] Dr. Edelmira Hirsch MCHC (RBC) [Mass/Vol] 34.1 g/dL Normal 29.9-35.2 [facility] Comment on above: Performed By: #### C BC #### [facility] [address] [place] [address] Dr. Edelmira Hirsch MCV (RBC) [Entitic vol] 94.6 fL Normal 81.0-99.0 [facility] Comment on above: Performed By: #### C BC #### [facility] [address] [place] [address] Dr. Edelmira Hirsch MONO # 0.5 103/ul Normal 0.3-0.8 [facility] Comment on above: Performed By: #### C BC #### [facility] [address] [place] [address] Dr. Edelmira Hirsch Monocytes/100 WBC (Bld) 6.5 % Normal 1.7-12.0 [facility] Comment on above: Performed By: #### C BC #### [facility] [address] [address] [address] Edelmira Hirsch NEUT # 3.8 103/ul Normal 1.4-6.5 [facility] Comment on above: Performed By: #### C BC #### [facility] [address] [address] [address] Edelmira Hirsch Neutrophils/100 WBC (Bld) 53.7 % Normal 43.0-75.0 [facility] Comment on above: Performed By: #### C BC #### [facility] [address] [place] [address] Dr. Edelmira Hirsch Platelet mean volume (Bld) [Entitic vol] 10.0 fL Normal 9.5-13.5 [facility] Comment on above: Performed By: #### C BC #### [facility] [address] [place] [address] Dr. Edelmira Hirsch PLT 276 103/ul Normal 150-450 [facility] Comment on above: Performed By: #### C BC #### [facility] [address] [place] [address] Dr. Edelmira Hirsch RBC 4.28 106/ul Normal 4.20-5.40 [facility] Comment on above: Performed By: #### C BC #### [facility] [address] [place] [address] Dr. Edelmira Hirsch WBC 7.1 103/ul Normal 4.0-11.0 [facility] Comment on above: Performed By: #### C BC #### [facility] [address] [place] [address] Dr. Edelmira Hirsch GLYCOHEMOGLOBIN A1Con 2022 ADA RECOMMENDATION SEE BELOW Normal [facility] Comment on above: Result Comment: ADA RECOMMENDED LIMIT 4.0 - 6.0 ADA THERAPEUTIC TARGET < 7.0 ACTION SUGGESTED > 7.0 Performed By: #### A 1C #### [facility] [address] [place] [address] Dr. Edelmira Hirsch Glucose [Mass/Vol] 100 mg/dL Normal [facility] Comment on above: Performed By: #### A 1C #### [facility] [address] [address] [address] Edelmira Hirsch HbA1c (Bld) [Mass fraction] 5.1 % Normal 4.5-6.2 [facility] Comment on above: Performed By: #### A 1C #### [facility] [address] [address] [address] Edelmira Hirsch LIPID PROFILEon 11-01-2022 CHOL-HDL RATIO NORM SEE BELOW Normal [facility] Comment on above: Result Comment: 3.3 - 4.4 LOW RISK 4.4 - 7.1 AVERAGE RISK 7.1 - 11.0 MODERATE RISK >11.0 HIGH RISK Performed By: #### L IPID, CMP, TSH #### [facility] [address] [address] [address] Edlemira Hirsch Cholesterol [Mass/Vol] 164 mg/dL Normal <=200 Th [facility] Comment on above: Performed By: #### L IPID, CMP, TSH #### [facility] [address] [address] [address] Edelmira Hirsch Cholesterol in HDL [Mass/Vol] 80 mg/dL Critically high 40-60 [facility] Comment on above: Performed By: #### L IPID, CMP, TSH #### [facility] [address] [address] [address] Edelmira Hirsch Cholesterol in LDL [Mass/Vol] 76.8 mg/dL Normal [facility] Comment on above: Performed By: #### L IPID, CMP, TSH #### [facility] [address] [address] [address] Edelmira Hirsch Cholesterol.total/Shelley sterol in HDL [Mass ratio] 2.1 {ratio} Normal [facility] Comment on above: Performed By: #### L IPID, CMP, TSH #### [facility] [address] [place] [address] Dr. Edelmira Hirsch HDL NORMAL > or = 60 mg/dl - LO W CARDIOVASCULAR RISK <40 mg/dl - HIGH CARDIOVASCULAR RISK Normal [facility] Comment on above: Performed By: #### L IPID, CMP, TSH #### [facility] [address] [address] [address] Edelmira Hirsch LDL CALC NORMAL SEE BELOW Normal [facility] Comment on above: Result Comment: <100 mg/dl OPTIMAL 100 - 129 mg/dl NEAR OR ABOVE OPTIMAL 130 - 159 mg/dl BORDERLINE HIGH 160 - 189 mg/dl HIGH >190 mg/dl VERY HIGH Performed By: #### L IPID, CMP, TSH #### [facility] [address] [address] [address] Edelmira Hirsch Triglyceride [Mass/Vol] 36 mg/dL Normal <=150 T [facility] Comment on above: Performed By: #### L IPID, CMP, TSH #### [facility] [address] [place] [address] Dr. Edelmira Hirsch VLDL CALC 7.2 mg/dL Normal [facility] Comment on above: Performed By: #### L IPID, CMP, TSH #### [facility] [address] [place] [address] Dr. Edelmira Hirsch PROF 14(COMP METB)on 023 Albumin [Mass/Vol] 3.5 g/dL Normal 3.4-5.0 [facility] Comment on above: Performed By: #### L IPID, CMP, TSH #### [facility] [address] [place] [address] Dr. Edelmira Hirsch Albumin/Globulin [Mass ratio] 0.9 {ratio} Normal [facility] Comment on above: Performed By: #### L IPID, CMP, TSH #### [facility] [address] [place] [address] Dr. Edelmira iHrsch ALP [Catalytic activity/Vol] 51 U/L Normal 46-116 [facility] Comment on above: Performed By: #### L IPID, CMP, TSH #### [facility] [address] [place] [address] Dr. Edelmira Hirsch ALT [Catalytic activity/Vol] 23 U/L Normal 14-59 [facility] Comment on above: Performed By: #### L IPID, CMP, TSH #### [facility] [address] [place] [address] Dr. Edelmira Hirsch Anion gap [Moles/Vol] 11.2 mmol/L Normal Th e [facility] Comment on above: Performed By: #### L IPID, CMP, TSH #### [facility] [address] [address] [address] Edelmira Hirsch AST [Catalytic activity/Vol] 18 U/L Normal 15-37 [facility] Comment on above: Performed By: #### L IPID, CMP, TSH #### [facility] [address] [address] [address] Edelmira Hirsch Bilirubin [Mass/Vol] 0.9 mg/dL Normal 0.2-1.0 [facility] Comment on above: Performed By: #### L IPID, CMP, TSH #### [facility] [address] [address] [address] Edelmira Hirsch Calcium [Mass/Vol] 9.4 mg/dL Normal 8.5-10.1 [facility] Comment on above: Performed By: #### L IPID, CMP, TSH #### [facility] [address] [address] [address] Edelmira Hirsch Chloride [Moles/Vol] 104 mmol/L Normal 98-107 [facility] Comment on above: Performed By: #### L IPID, CMP, TSH #### [facility] [address] [address] [address] Edelmira Hircsh CO2 [Moles/Vol] 29.5 mmol/L Normal 21.0-32.0 [facility] Comment on above: Performed By: #### L IPID, CMP, TSH #### [facility] [address] [place] [address] Dr. Edelmira Hirsch Creatinine [Mass/Vol] 0.86 mg/dL Normal 0.55-1.02 [facility] Comment on above: Performed By: #### L IPID, CMP, TSH #### [facility] [address] [address] [address] Edelmira Hirsch EGFR-AF [place] >60 Normal >=60 [facility] Comment on above: Performed By: #### L IPID, CMP, TSH #### [facility] [address] [address] [address] Edelmira Hirsch EGFR-NON AF [place] >60 Normal >=60 [facility] Comment on above: Performed By: #### L IPID, CMP, TSH #### [facility] [address] [address] [address] Edelmira Hirsch Globulin (S) [Mass/Vol] 3.7 g/dL Normal T [facility] Comment on above: Performed By: #### L IPID, CMP, TSH #### [facility] [address] [address] [address] Edelmira Hirsch Glucose [Mass/Vol] 97 mg/dL Normal 74-106 [facility] Comment on above: Performed By: #### L IPID, CMP, TSH #### [facility] [address] [place] [address] Dr. Edelmira Hirsch Potassium [Moles/Vol] 4.7 mmol/L Normal 3.5-5.1 [facility] Comment on above: Performed By: #### L IPID, CMP, TSH #### [facility] [address] [place] [address] Dr. Edelmira Hirsch Protein [Mass/Vol] 7.2 g/dL Normal 6.4-8.2 [facility] Comment on above: Performed By: #### L IPID, CMP, TSH #### [facility] [address] [place] [address] Dr. Edelmira Hirsch Sodium [Moles/Vol] 140 mmol/L Normal 136-145 [facility] Comment on above: Performed By: #### L IPID, CMP, TSH #### [facility] [address] [place] [address] Dr. Edelmira Hirsch Urea nitrogen [Mass/Vol] 14.0 mg/dL Normal 7.0-18.0 [facility] Comment on above: Performed By: #### L IPID, CMP, TSH #### [facility] [address] [place] [address] Dr. Edelmira Hirsch Urea nitrogen/Creatinine [Mass ratio] 16.3 mg/mg Normal [facility] Comment on above: Performed By: #### L IPID, CMP, TSH #### [facility] [address] [address] [address] Edelmira Hirsch TSHon 11-01-2022 TSH 2.540 uIU/mL Normal 0.358-3.74 0 [facility] Comment on above: Performed By: #### L IPID, CMP, TSH #### [facility] [address] [place] [address] Dr. Edelmira Hirsch PAP ACOG PANEL 2: 30 to 66on 06-27-2022 . . Normal [facility] Comment on above: Result Comment: Perf ormed at: WB Performed By: #### 4 [id number] #### [facility] [address] [place] [address] Dr. Edelmira Hirsch Age Gdln ACOG Testing - [facility] Comment on above: Performed By: #### 4 [id number] #### [facility] [address] [place] [address] Dr. Edelmira Hirsch DIAGNOSIS: Comment Normal [facility] Comment on above: Result Comment: NEGA TIVE FOR INTRAEPITHELIAL LESION OR MALIGNANCY. Performed at: WB Performed By: #### 4 [id number] #### [facility] [address] [place] [address] Dr. Edelmira Hirsch HPV Aptima Negative Normal Negative [facility] Comment on above: Result Comment: This nucleic acid amplification test detects fourteen high-risk HPV types (16,18,31,33,35,39,45,51,52,56,58,59,66,68) without differentiation. Performed at: =G Performed By: #### 4 [id number] #### [facility] [address] [place] [address] Dr. Edelmira Hirsch HPV Genotype Reflex Comment Normal [facility] Comment on above: Result Comment: Crit eria not met, HPV Genotype not performed. Performed at: WB Performed By: #### 4 [id number] #### [facility] [address] [place] [address] Dr. Edelmira Hirsch Methodology: Comment Normal [facility] Comment on above: Result Comment: This liquid based ThinPrep(R) pap test was screened with the use of an image guided system. Performed at: WB Performed By: #### 4 [id number] #### [facility] [address] [place] [address] Dr. Edelmira Hirsch Note: Comment Normal [facility] Comment on above: Result Comment: The Pap smear is a screening test designed to aid in the detection of premalignant and malignant conditions of the uterine cervix. It is not a diagnostic procedure and should not be used as the sole means of detecting cervical cancer. Both false-positive and false-negative reports do occur. . Performed at: WB Performed By: #### 4 [id number] #### [facility] [address] [place] [address] Dr. Edelmira Hirsch Performed by: Comment Normal [facility] Comment on above: Result Comment: Aury Andrade, Manager Merchandising (ASCP) Performed at: WB Performed By: #### 4 [id number] #### [facility] [address] [place] [address] Dr. Edelmira Hirsch Specimen adequacy: Comment Normal [facility] Comment on above: Result Comment: Sati sfactory for evaluation. Endocervical and/or squamous metaplastic cells (endocervical component) are present. Performed at: WB Performed By: #### 4 [id number] #### [facility] [address] [place] [address] Dr. Edelimra Hirsch Nicotine and Metabolite, Harlan nt LCon 04-04-2021 Cotinine LC <1.[address] [facility] Comment on above: Result Comment: This test was developed and its performance characteristics determined by [facility]. It has not been cleared or approved by the Food and Drug Administration. Cotinine levels greater than 20.0 are consistent with the use of tobacco or tobacco cessation products. Performed At: [address] [id number] Speedy Rodriguez MD Ph:[phone] Performed By: #### 1 [id number], [id number], [id number], [id number], 14307001, 2690098 #### [facility] (DEFAULT) [address] [place] [address] Nicotine LC <1.0 Invalid Interpretation Code [facility] Comment on above: Result Comment: This test was developed and its performance characteristics determined by [facility]. It has not been cleared or approved by the Food and Drug Administration. Nicotine levels greater than 2.0 are consistent with the use of tobacco or tobacco cessation products. Performed By: #### 1 [id number], [id number], [id number], 4690935217, 70372742, 6121711 #### [facility] (DEFAULT) [address] [place] [address] .Auto Diff 1on 03-30-2021 Auto [place] % 7 % Normal 06-30 [facility] Comment on above: Performed By: #### 1 [id number], [id number], [id number], 8409038381, 76044874, 4041765 #### [facility] (DEFAULT) [address] [place] [address] Baso Abs# 0.0 x10 Normal 0.0-0.2 [facility] Comment on above: Performed By: #### 1 8614724, [id number], 1587986733, 8962151242, 21115091, 5370967 #### [facility] (DEFAULT) [address] [place] [address] Basophils/100 WBC (Bld) 0.4 % Normal 0.2-2.0 [facility] Comment on above: Performed By: #### 1 4712320, 8771501299, 7211656545, 6766102726, 25724431, 6701467 #### [facility] (DEFAULT) [address] [place] [address] Eos Abs# 1.0 x10 High 0.0-0.4 [facility] Comment on above: Performed By: #### 1 3744742, 5452858220, 8692288164, 8841834605, 26651258, 2820841 #### [facility] (DEFAULT) [address] [place] [address] Eosinophils/100 WBC (Bld) 13.5 % High 0.9-4.0 [facility] Comment on above: Performed By: #### 1 1615186, 3936177278, 1771256063, 0251607838, 40948206, 8255067 #### [facility] (DEFAULT) [address] [place] [address] Lymph Abs# 2.1 x10 Normal 1.3-2.9 [facility] Comment on above: Performed By: #### 1 0208220, 1690164897, 1615459052, 4573555371, 93482308, 6796379 #### [facility] (DEFAULT) [address] [place] [address] Lymphocytes/100 WBC (Bld) 29 % Normal 14-48 [facility] Comment on above: Performed By: #### 1 9219371, 0644240598, 8398128354, 0503058453, 28328761, 7698528 #### [facility] (DEFAULT) [address] [place] [address] [place] Abs# 0.5 x10 Normal 0.0-0.8 [facility] Comment on above: Performed By: #### 1 6039286, 2859187346, 3531844459, 0039516916, 41674849, 5605295 #### [facility] (DEFAULT) [address] [place] [address] Neut Abs# 3.5 x10 Normal 1.5-9.2 [facility] Comment on above: Performed By: #### 1 3598441, 1484004750, 6533734036, 6265691497, 78728922, 8813511 #### [facility] (DEFAULT) [address] [place] [address] Neutrophils/100 WBC (Bld) 50 % Normal 44-88 [facility] Comment on above: Performed By: #### 1 9650514, 6439929939, 5939802490, 1228519063, 98025328, 4220666 #### [facility] (DEFAULT) [address] [place] [address] CBC w/ Auto Diffon 1 Erythrocyte distribution width (RBC) [Ratio] 13.2 % Normal 11.5-15.0 [facility] Comment on above: Performed By: #### 1 6781441, 4094601537, 0498747472, 4116569665, 70658203, 3251737 #### [facility] (DEFAULT) [address] [place] [address] Hematocrit (Bld) [Volume fraction] 38.4 % Normal 33.7-40.4 [facility] Comment on above: Performed By: #### 1 8938384, 9597795694, 5759299237, 0579015802, 56487745, 7445338 #### [facility] (DEFAULT) [address] [place] [address] Hemoglobin (Bld) [Mass/Vol] 12.4 g/dL Normal 11.3-15.9 [facility] Comment on above: Performed By: #### 1 8485381, 2536326410, 7863079645, 0811382172, 15998313, 5126727 #### [facility] (DEFAULT) [address] [place] [address] Instr WBC 7.1 x10 Invalid Interpretation Code [facility] Comment on above: Performed By: #### 1 5956542, 6050167418, 4638471291, 1981394560, 88222315, 7982854 #### [facility] (DEFAULT) [address] [place] [address] Man Diff? Auto Normal [facility] Comment on above: Performed By: #### 1 5306853, 8338201912, 4900668273, 1065555474, 76047701, 5228597 #### [facility] (DEFAULT) [address] [place] [address]24 MCH (RBC) [Entitic mass] 30 pg Normal 24-34 [facility] Comment on above: Performed By: #### 1 3164042, 1943529508, 8228035307, 0125391873, 25312193, 6233163 #### [facility] (DEFAULT) [address] [place] [address] 17207 MCHC (RBC) [Mass/Vol] 32 g/dL Normal 26-37 [facility] Comment on above: Performed By: #### 1 1017500, 5404162349, 2823931047, 1492246118, 18947957, 3970058 #### [facility] (DEFAULT) [address] [place] [address] 87119 MCV (RBC) [Entitic vol] 94 fL Normal 81-100 [facility] Comment on above: Performed By: #### 1 3277856, 9613395246, 5280721784, 2456221899, 08882304, 3623672 #### [facility] (DEFAULT) [address] [place] [address] Platelet 265 x10 Normal 138-427 [facility] Comment on above: Performed By: #### 1 9509024, 4740500837, 1298461610, 4353756691, 96436348, 8375012 #### [facility] (DEFAULT) [address] [place] [address] 0[address] Platelet mean volume (Bld) [Entitic vol] 10.3 fL High 6.3-10.2 [facility] Comment on above: Performed By: #### 1 2812539, 1272227873, 5497312113, 1344554293, 57922773, 6369207 #### [facility] (DEFAULT) [address] [place] [address] 31484 RBC 4.10 x10 Normal 3.70-5.30 [facility] Comment on above: Performed By: #### 1 3820504, 3218884614, 0860514906, 7198316953, 89362802, 0675044 #### [facility] (DEFAULT) [address] [place] [address] 88407 WBC 7.1 x10 Normal 3.5-10.5 [facility] Comment on above: Performed By: #### 1 7925834, 0776783949, 4820312067, 5859923220, 10190432, 2050404 #### [facility] (DEFAULT) [address] [place] [address]209 CMP Standardon 03-30-2021 eGFR Non AA >60 Invalid Interpretation Code [facility] Comment on above: Performed By: #### 1 0460882, 4640172510, 5815066364, 5375112163, 22328552, 5779352 #### [facility] (DEFAULT) [address] [place] [address] 47237 eGFR AA >60 Invalid Interpretation Code [facility] Comment on above: Result Comment: Patient Access Coordinator roddy Kidney disease could be indicated at eGFRs of less than 60 ml/min/1.73m2. Kidney Failure is indicated at less than 15 ml/min/1.73m2 Performed By: #### 1 6934527, 2399716845, 3693820848, 1385161957, 43923920, 9769321 #### [facility] (DEFAULT) [address] [place] [address] 73227 Albumin [Mass/Vol] 3.6 g/dL Normal 3.5-5.0 [facility] Comment on above: Performed By: #### 1 5315076, 3173966586, 5884166367, 2925399233, 83398943, 3161003 #### [facility] (DEFAULT) [address] [place] [address] 64934 Albumin/Globulin [Mass ratio] 1.1 {ratio} Low 1.4-2.6 [facility] Comment on above: Performed By: #### 1 6501979, 1353266211, 6778101520, 1556181002, 14146211, 2843164 #### [facility] (DEFAULT) [address] [place] [address] 10986 Alk Phos 61 IU/L Normal 32-91 [facility] Comment on above: Performed By: #### 1 2703327, 5799341697, 9055341655, 1003290059, 03139680, 7483588 #### [facility] (DEFAULT) [address] [place] [address] 92082 ALT [Catalytic activity/Vol] 14.0 U/L Normal 14.0-54.0 [facility] Comment on above: Performed By: #### 1 9094346, 2460572389, 9549057996, 2464495405, 31795448, 0198397 #### [facility] (DEFAULT) [address] [place] [address] 14343 Anion gap [Moles/Vol] 9.0 mmol/L Normal 5.0-19.0 [facility] Comment on above: Performed By: #### 1 1418313, 0890168849, 6951161551, 2506665925, 79487164, 3893944 #### [facility] (DEFAULT) [address] [place] [address] 03551 AST [Catalytic activity/Vol] 21 U/L Normal 15-41 [facility] Comment on above: Performed By: #### 1 2001909, 2011933225, 0031080836, 6918617278, 24824721, 0223879 #### [facility] (DEFAULT) [address] [place] [address] Bili Total 0.9 mg/dL Normal 0.3-1.2 [facility] Comment on above: Performed By: #### 1 2541965, 5715157412, 3096553975, 6996932378, 70002360, 1468632 #### [facility] (DEFAULT) [address] [place] [address] 59402 Calcium [Mass/Vol] 8.6 mg/dL Low 8.9-10.3 [facility] Comment on above: Performed By: #### 1 1575303, 6306043020, 7035469536, 0784063417, 51676103, 6601710 #### [facility] (DEFAULT) [address] [place] [address] 34806 Chloride [Moles/Vol] 103 mmol/L Normal 101-111 [facility] Comment on above: Performed By: #### 1 9535083, 9318575469, 8198731151, 9423308619, 76438309, 8472878 #### [facility] (DEFAULT) [address] [place] [address] 23438 CO2 [Moles/Vol] 27 mmol/L Normal 21-32 [facility] Comment on above: Performed By: #### 1 5276670, 3664379158, 4771784178, 4924773804, 95531262, 2714425 #### [facility] (DEFAULT) [address] [place] [address] 50348 Creatinine [Mass/Vol] 0.81 mg/dL Normal 0.60-1.30 [facility] Comment on above: Performed By: #### 1 3628433, [id number], 2943012870, 2216014940, 82410275, 4129354 #### [facility] (DEFAULT) [address] [place] [address] 51466 Globulin (S) [Mass/Vol] 3.4 g/dL Normal 1.5-4.3 [facility] Comment on above: Performed By: #### 1 5666717, 1854113480, 4827315921, 4697630076, 07686764, 4006823 #### [facility] (DEFAULT) [address] [place] [address] 75668 Glucose [Mass/Vol] 89.0 mg/dL Normal 74.0-118.0 [facility] Comment on above: Performed By: #### 1 6308463, 7710921783, 0580896362, 8005985725, 76704013, 0112016 #### [facility] (DEFAULT) [address] [place] [address] 62360 Osmolality 269 mOsm/L Invalid Interpretation Code [facility] Comment on above: Performed By: #### 1 5693207, 8809986165, 1647191967, 0602130967, 55815019, 7468752 #### [facility] (DEFAULT) [address] [place] [address] 12142 Potassium [Moles/Vol] 4.0 mmol/L Normal 3.6-5.1 [facility] Comment on above: Performed By: #### 1 4861886, 0753751468, 1080546786, 3917192954, 99139421, 8848933 #### [facility] (DEFAULT) [address] [place] [address] 76461 Protein [Mass/Vol] 7.0 g/dL Normal 6.5-8.1 [facility] Comment on above: Performed By: #### 1 4940950, 6459461252, 8301111630, 0799390260, 19385815, 7530084 #### [facility] (DEFAULT) [address] [place] [address] Sodium [Moles/Vol] 135.0 mmol/L Low 136.0-144 . 0 [facility] Comment on above: Performed By: #### 1 0486952, 2454777492, 5657328898, 6617184368, 08276701, 5605329 #### [facility] (DEFAULT) [address] [place] [address] Urea nitrogen [Mass/Vol] 12 mg/dL Normal 8-26 [facility] Comment on above: Performed By: #### 1 0277447, 7203718439, 1674912799, 1321123177, 85958090, 1513302 #### [facility] (DEFAULT) [address] [place] [address] Urea nitrogen/Creatinine [Mass ratio] 15.0 mg/mg Normal 4.6-16.2 [facility] Comment on above: Performed By: #### 1 4834999, 8823553300, 8552454836, 3618547821, 14324221, 6058128 #### [facility] (DEFAULT) [address] [place] [address] HgbA1c Standardon 03-30-2021 .Hb 14.4 Invalid Interpretation Code [facility] Comment on above: Performed By: #### 1 9248203, 8722147700, 7802616123, 1028773247, 35041507, 8776643 #### [facility] (DEFAULT) [address] [place] [address] .Hgb A1c 0.48 g/dL Invalid Interpretation Code [facility] Comment on above: Performed By: #### 1 4355439, 3234608618, 2184921058, 0138365557, 12138969, 4089930 #### [facility] (DEFAULT) [address] [place] [address] Glucose [Mass/Vol] 103 mg/dL Invalid Interpretation Code [facility] Comment on above: Performed By: #### 1 4508162, 7896358595, 2082398733, 4854686746, 78429651, 3279787 #### [facility] (DEFAULT) [address] [place] [address] 99060 HbA1c (Bld) [Mass fraction] 5.2 % Normal 4.6-6.2 [facility] Comment on above: Performed By: #### 1 1086549, 4520993676, 4871040000, 6507632052, 10918317, 1621182 #### [facility] (DEFAULT) [address] [place] [address] 11746 Lipid Panel Standardon 03-30 Cholesterol [Mass/Vol] 171.0 mg/dL Normal 66.0-200.0 [facility] Comment on above: Result Comment: Rosalind rable - Less than 200 mg/dL Borderline high risk - 200-239 mg/dL High risk - 240 mg/dL and over. Performed By: #### 1 0185149, 6694346899, 4386702095, 3012351707, 69385925, 6444632 #### [facility] (DEFAULT) [address] [place] [address] 55088 Cholesterol in HDL [Mass/Vol] 64 mg/dL Normal 40-71 [facility] Comment on above: Result Comment: High risk - <40 mg/dL. Performed By: #### 1 7227516, 5594169674, 5705482107, 9661791639, 62518208, 4539425 #### [facility] (DEFAULT) [address] [place] [address] 73989 Cholesterol in LDL [Mass/Vol] 93 mg/dL Normal 1-100 [facility] Comment on above: Result Comment: Opti mal - Less than 100 mg/dL Borderline high risk - 130-159 mg/dL High risk - 160-189 mg/dL. Performed By: #### 1 1124757, 4480054211, 7149966301, 7723666391, 23230937, 8620368 #### [facility] (DEFAULT) [address] [place] [address] 05440 Cholesterol.total/Shelley sterol in HDL [Mass ratio] 2.7 {ratio} Normal 0.0-4.5 [facility] Comment on above: Performed By: #### 1 9046922, 3063067030, 3188418491, 8856148466, 28005013, 9562017 #### [facility] (DEFAULT) [address] [place] [address] 71946 Triglyceride [Mass/Vol] 73.0 mg/dL Normal 0.0-150.0 [facility] Comment on above: Performed By: #### 1 6307757, 8618671640, 9409445401, 0090075218, 64945382, 7037858 #### [facility] (DEFAULT) [address] [place] [address] 70942 VLDL. 15 mg/dL Normal 5-40 [facility] Comment on above: Performed By: #### 1 9425273, 1325243039, 9412886839, 8969793006, 79979093, 2331134 #### [facility] (DEFAULT) [address] [place] [address] 14695 Nicotine and Metabolite, Harlan nt LCon 04-20-2020 Cotinine LC <1.0 Invalid Interpretation Code [facility] Comment on above: Result Comment: This test was developed and its performance characteristics determined by [employer]. It has not been cleared or approved by the Food and Drug Administration. Cotinine levels greater than 20.0 are consistent with the use of tobacco or tobacco cessation products. Performed At: [address] [id number] Speedy Rodriguez MD Ph:[phone] Performed By: #### 1 2178241, 0867168202, 2342478504, 6436109932, 66346337, 7998393 #### [facility] (DEFAULT) [address] [place] [address] 25785 Nicotine LC <1.0 Invalid Interpretation Code [facility] Comment on above: Result Comment: This test was developed and its performance characteristics determined by [employer]. It has not been cleared or approved by the Food and Drug Administration. Nicotine levels greater than 2.0 are consistent with the use of tobacco or tobacco cessation products. Performed By: #### 1 5003234, 4220229422, 6947476882, 4832962441, 62127324, 2758868 #### [facility] (DEFAULT) [address] [place] [address] .Auto Diff 04-10-2020 Auto [place] % 8 % Normal 1-12 [facility] Comment on above: Performed By: #### 7 395102, 59642088, 8324613662, 9425460683, 4971027397, 25431175 #### [facility] (DEFAULT) [address] [place] [address] Baso Abs# 0.0 x10 Normal 0.0-0.2 [facility] Comment on above: Performed By: #### 7 288239, 97619500, 5419905363, 3844880699, 9176613699, 99869341 #### [facility] (DEFAULT) [address] [place] [address] Basophils/100 WBC (Bld) 0.6 % Normal 0.2-2.0 [facility] Comment on above: Performed By: #### 7 538676, 54842003, 3953857291, 7390078048, 1750023442, 61297318 #### [facility] (DEFAULT) [address] [place] [address] Eos Abs# 0.7 x10 High 0.0-0.4 [facility] Comment on above: Performed By: #### 7 121110, 28999528, 0217958929, 3884577190, 3408684606, 30677064 #### [facility] (DEFAULT) [address] [place] [address] Eosinophils/100 WBC (Bld) 13.1 % High 0.9-4.0 [facility] Comment on above: Performed By: #### 7 079744, 84283523, 2819511634, 7480989205, 9713512907, 70588783 #### [facility] (DEFAULT) [address] [place] [address] Lymph Abs# 1.8 x10 Normal 1.3-2.9 [facility] Comment on above: Performed By: #### 7 983253, 38192280, 8780442909, 0930996926, 3724192776, 28189759 #### [facility] (DEFAULT) [address] [place] [address] Lymphocytes/100 WBC (Bld) 33 % Normal 14-48 [facility] Comment on above: Performed By: #### 7 353550, 17984767, 4200538340, 6366082396, 4627153711, 12172948 #### [facility] (DEFAULT) [address] [place] [address] Washoe Abs# 0.4 x10 Normal 0.0-0.8 [facility] Comment on above: Performed By: #### 7 384432, 28483978, 1988682662, 1163227579, 0695080327, 67534662 #### [facility] (DEFAULT) [address] [place] [address] Neut Abs# 2.4 x10 Normal 1.5-9.2 [facility] Comment on above: Performed By: #### 7 300285, 14836790, 2483429842, 8270680202, 5690688160, 80111224 #### [facility] (DEFAULT) [address] [place] [address] Neutrophils/100 WBC (Bld) 45 % Normal 44-88 [facility] Comment on above: Performed By: #### 7 936272, 19734794, 2204816770, 1804225547, 0896158160, 19180083 #### [facility] (DEFAULT) [address] [place] [address] CBC w/ Auto Diffon Erythrocyte distribution width (RBC) [Ratio] 13.4 % Normal 11.5-15.0 [facility] Comment on above: Performed By: #### 7 429154, 67029548, 6646570474, 4384129879, 2901425866, 50148129 #### [facility] (DEFAULT) [address] [place] [address] Hematocrit (Bld) [Volume fraction] 38.4 % Normal 33.7-40.4 [facility] Comment on above: Performed By: #### 7 970835, 21990622, 6799208094, 4634276166, 8965828763, 37218872 #### [facility] (DEFAULT) [address] [place] [address] Hemoglobin (Bld) [Mass/Vol] 12.6 g/dL Normal 11.3-15.9 [facility] Comment on above: Performed By: #### 7 838508, 57872459, 5837605491, 0702757359, 3140846832, 62673847 #### [facility] (DEFAULT) [address] [place] [address] Instr WBC 5.3 x10 Invalid Interpretation Code [facility] Comment on above: Performed By: #### 7 857750, 40229858, 1033462512, 6647968161, 3781941234, 14280377 #### [facility] (DEFAULT) [address] [place] [address] Man Diff? Auto Normal [facility] Comment on above: Performed By: #### 7 982723, 92102219, 9685333417, 5034834384, 8335944178, 87534462 #### [facility] (DEFAULT) [address] [place] [address] 02019 MCH (RBC) [Entitic mass] 29 pg Normal 24-34 [facility] Comment on above: Performed By: #### 7 924021, 99686536, 7664155995, 4480185917, 4912773424, 66375984 #### [facility] (DEFAULT) [address] [place] [address] 85801 MCHC (RBC) [Mass/Vol] 33 g/dL Normal 26-37 [facility] Comment on above: Performed By: #### 7 463673, 50364978, 5693202743, 7053742061, 3965262923, 11395140 #### [facility] (DEFAULT) [address] [place] [address] 45825 MCV (RBC) [Entitic vol] 89 fL Normal 81-100 [facility] Comment on above: Performed By: #### 7 569500, 78415610, 3978957075, 5509834283, 1094846721, 50530634 #### [facility] (DEFAULT) [address] [place] [address] Platelet 270 x10 Normal 138-427 [facility] Comment on above: Performed By: #### 7 778090, 23809007, 9410965139, 6101170526, 3735738938, 28821803 #### [facility] (DEFAULT) [address] [place] [address] Platelet mean volume (Bld) [Entitic vol] 10.1 fL Normal 6.3-10.2 [facility] Comment on above: Performed By: #### 7 114397, 89870988, 2456486747, 2211662550, 2174190459, 64370492 #### [facility] (DEFAULT) [address] [place] [address] RBC 4.32 x10 Normal 3.70-5.30 [facility] Comment on above: Performed By: #### 7 973291, 32113479, 4718391747, 7322770784, 8048612542, 70936420 #### [facility] (DEFAULT) [address] [place] [address] WBC 5.3 x10 Normal 3.5-10.5 [facility] Comment on above: Performed By: #### 7 223749, 76137528, 8216596516, 6144744864, 4469601789, 90195999 #### [facility] (DEFAULT) [address] [place] [address] Standardon 04-10-2020 eGFR Non AA >60 Invalid Interpretation Code [facility] Comment on above: Performed By: #### 7 259128, 87776510, 0710024063, 4445768253, 8303133924, 62889159 #### [facility] (DEFAULT) [address] [place] [address] eGFR AA >60 Invalid Interpretation Code [facility] Comment on above: Result Comment: Patient Access Coordinator roddy Kidney disease could be indicated at eGFRs of less than 60 ml/min/1.73m2. Kidney Failure is indicated at less than 15 ml/min/1.73m2 Performed By: #### 7 354890, 41423605, 5128904966, 1474511570, 7665065732, 84495658 #### [facility] (DEFAULT) [address] [place] [address] Albumin [Mass/Vol] 3.8 g/dL Normal 3.5-5.0 [facility] Comment on above: Performed By: #### 7 141213, 96826332, 0343414014, 4876503022, 7697532535, 76626990 #### [facility] (DEFAULT) [address] [place] [address] Albumin/Globulin [Mass ratio] 1.1 {ratio} Low 1.4-2.6 [facility] Comment on above: Performed By: #### 7 968858, 20374205, 5563320377, 2666239491, 3434979942, 38378247 #### [facility] (DEFAULT) [address] [place] [address] Alk Phos 40 IU/L Normal 32-91 [facility] Comment on above: Performed By: #### 7 276943, 65973193, 1126564207, 1878953695, 0092520999, 29122492 #### [facility] (DEFAULT) [address] [place] [address] ALT [Catalytic activity/Vol] 13.0 U/L Low 14.0-54.0 [facility] Comment on above: Performed By: #### 7 863442, 04973510, 1407836921, 5800354599, 8170454679, 00848952 #### [facility] (DEFAULT) [address] [place] [address] Anion gap [Moles/Vol] 11.0 mmol/L Normal 5.0-19.0 [facility] Comment on above: Performed By: #### 7 937541, 38098092, 2585386899, 4854610128, 7068178835, 71839616 #### [facility] (DEFAULT) [address] [place] [address] AST [Catalytic activity/Vol] 19 U/L Normal 15-41 [facility] Comment on above: Performed By: #### 7 297049, 74605640, 8794226764, 5886233075, 7982064487, 97610964 #### [facility] (DEFAULT) [address] [place] [address] 27287 Bili Total 1.1 mg/dL Normal 0.3-1.2 [facility] Comment on above: Performed By: #### 7 187911, 31075894, 5169854096, 6284164158, 8027273230, 42815572 #### [facility] (DEFAULT) [address] [place] [address] 74548 Calcium [Mass/Vol] 9.1 mg/dL Normal 8.9-10.3 [facility] Comment on above: Performed By: #### 7 789270, 82739338, 6365842632, 1353121763, 2210388093, 70411509 #### [facility] (DEFAULT) [address] [place] [address] 29732 Chloride [Moles/Vol] 107 mmol/L Normal 101-111 [facility] Comment on above: Performed By: #### 7 161430, 48259962, 0009128734, 5533323373, 6282771298, 67025369 #### [facility] (DEFAULT) [address] [place] [address] 62268 CO2 [Moles/Vol] 23 mmol/L Normal 21-32 [facility] Comment on above: Performed By: #### 7 246474, 63300058, 6806107428, 1881718667, 1318625233, 62689894 #### [facility] (DEFAULT) [address] [place] [address] 78153 Creatinine [Mass/Vol] 0.75 mg/dL Normal 0.60-1.30 [facility] Comment on above: Performed By: #### 7 530889, 66171722, 1271235810, 2489685471, 6884604417, 58082012 #### [facility] (DEFAULT) [address] [place] [address] 85555 Globulin (S) [Mass/Vol] 3.4 g/dL Normal 1.5-4.3 [facility] Comment on above: Performed By: #### 7 289741, 65321690, 3647472389, 2629443914, 7477446940, 35412044 #### [facility] (DEFAULT) [address] [place] [address] 53730 Glucose [Mass/Vol] 98.0 mg/dL Normal 74.0-118.0 [facility] Comment on above: Performed By: #### 7 852230, 37201582, 1406656867, 8539330060, 8603606264, 46686348 #### [facility] (DEFAULT) [address] [place] [address] 04510 Osmolality 276 mOsm/L Invalid Interpretation Code [facility] Comment on above: Performed By: #### 7 049106, 89846029, 3712979982, 4501020970, 4422170707, 64548149 #### [facility] (DEFAULT) [address] [place] [address] 52458 Potassium [Moles/Vol] 4.0 mmol/L Normal 3.6-5.1 [facility] Comment on above: Performed By: #### 7 370597, 12145363, 6537681751, 0753766713, 9005841601, 28397730 #### [facility] (DEFAULT) [address] [place] [address] 91896 Protein [Mass/Vol] 7.2 g/dL Normal 6.5-8.1 [facility] Comment on above: Performed By: #### 7 710714, 48066250, 8975977121, 0053842247, 7430958401, 17967877 #### [facility] (DEFAULT) [address] [place] [address] 61520 Sodium [Moles/Vol] 137.0 mmol/L Normal 136.0-144 . 0 [facility] Comment on above: Performed By: #### 7 367669, 47358506, 8421974243, 2292452773, 1014097707, 64762018 #### [facility] (DEFAULT) [address] [place] [address] Urea nitrogen [Mass/Vol] 20 mg/dL Normal 8-26 [facility] Comment on above: Performed By: #### 7 742240, 90794325, 9103940151, 7656387817, 1137153561, 41972531 #### [facility] (DEFAULT) [address] [place] [address] Urea nitrogen/Creatinine [Mass ratio] 27.0 mg/mg High 4.6-16.2 [facility] Comment on above: Performed By: #### 7 440331, 95982378, 0955653411, 1512156765, 1703452854, 37062117 #### [facility] (DEFAULT) [address] [place] [address] HgbA1c Standardon 04-10-2020 .Hb 14.7 Invalid Interpretation Code [facility] Comment on above: Performed By: #### 1 2980224, 1228753256, 5366425399, 7442548347, 13453701, 2706274 #### [facility] (DEFAULT) [address] [place] [address] 78383 .Hgb A1c 0.51 g/dL Invalid Interpretation Code [facility] Comment on above: Performed By: #### 1 6192000, 7673687110, 2848883425, 2943543452, 02083986, 0821006 #### [facility] (DEFAULT) [address] [place] [address] Glucose [Mass/Vol] 106 mg/dL Invalid Interpretation Code [facility] Comment on above: Performed By: #### 1 0973379, 1104732595, 5919874982, 2011652291, 89215098, 4377042 #### [facility] (DEFAULT) [address] [place] [address] HbA1c (Bld) [Mass fraction] 5.3 % Normal 4.6-6.2 [facility] Comment on above: Performed By: #### 1 7558616, 2452084759, 1245889725, 1876658816, 50696951, 6800523 #### [facility] (DEFAULT) [address] [place] [address] 63167 Lipid Panel Standardon 04-10 Cholesterol [Mass/Vol] 162.0 mg/dL Normal 66.0-200.0 [facility] Comment on above: Result Comment: Rosalind rable - Less than 200 mg/dL Borderline high risk - 200-239 mg/dL High risk - 240 mg/dL and over. Performed By: #### 7 084833, 60539839, 2878630304, 0317692709, 6725700506, 59726240 #### [facility] (DEFAULT) [address] [place] [address] 72903 Cholesterol in HDL [Mass/Vol] 64 mg/dL Normal 40-71 [facility] Comment on above: Result Comment: High risk - <40 mg/dL. Performed By: #### 7 742657, 09836433, 8229635068, 9506483496, 5718779977, 83996618 #### [facility] (DEFAULT) [address] [place] [address] 14387 Cholesterol in LDL [Mass/Vol] 90 mg/dL Normal 1-100 [facility] Comment on above: Result Comment: Opti mal - Less than 100 mg/dL Borderline high risk - 130-159 mg/dL High risk - 160-189 mg/dL. Performed By: #### 7 025132, 11607557, 9217608660, 0166630563, 9830566269, 01104246 #### [facility] (DEFAULT) [address] [place] [address] 67553 Cholesterol.total/Shelley sterol in HDL [Mass ratio] 2.5 {ratio} Normal 0.0-4.5 [facility] Comment on above: Performed By: #### 7 931033, 53634862, 4328946767, 2434394084, 6859286801, 15800683 #### [facility] (DEFAULT) [address] [place] [address] 97049 Triglyceride [Mass/Vol] 38.0 mg/dL Normal 0.0-150.0 [facility] Comment on above: Performed By: #### 7 498822, 58706774, 9443097230, 6442223037, 3991347976, 36885031 #### [facility] (DEFAULT) [address] [place] [address] 90096 VLDL. 8 mg/dL Normal 5-40 [facility] Comment on above: Performed By: #### 7 868345, 82799741, 4037255564, 5576840100, 3477584082, 95303665 #### [facility] (DEFAULT) [address] [place] [address] 84092 Vital Signs Date Time Vital Sign Value Performing Clinician Faci lity 05-06-2024 14:43-0500 Body height 162.56 cm Tess Leahy MD Work Phone: [facility] 05-06-2024 14:43-0500 Body mass index (BMI) [Ratio] 22.5 kg/m2 Tess Leahy MD Work Phone: [facility] 05-06-2024 14:43-0500 Body weight 59.59 kg Tess Leahy MD Work Phone: [facility] 05-06-2024 14:43-0500 Diastolic blood pressure 79 mm[Hg] Tess Leahy MD Work Phone: [facility] 05-06-2024 14:43-0500 Heart rate 55 /min Tess Leahy MD Work Phone: [facility] 05-06-2024 14:43-0500 Systolic blood pressure 121 mm[Hg] Tess Leahy MD Work Phone: [facility] 11-20-2023 15:46-0400 Body height 162.56 cm MD Alis Beth Work Phone: [facility] 11-20-2023 15:46-0400 Body mass index (BMI) [Ratio] 22.7 kg/m2 MD Alis Beth Work Phone: [facility] 11-20-2023 15:46-0400 Body weight 60.04 kg MD Alis Beth Work Phone: [facility] 11-20-2023 15:46-0400 Diastolic blood pressure 72 mm[Hg] MD Alis Beth Work Phone: [facility] 11-20-2023 15:46-0400 Heart rate 54 /min MD Alis Beth Work Phone: [facility] 11-20-2023 15:46-0400 Systolic blood pressure 116 mm[Hg] MD Alis Beth Work Phone: [facility] 08-30-2023 14:03-0400 Blood Pressure Location Anup NILL [facility] 08-30-2023 14:03-0400 Diastolic blood pressure 78 mm[Hg] Anup NILL [facility] 08-30-2023 14:03-0400 Heart rate 72 /min Anup NILL [facility] 08-30-2023 14:03-0400 Respiratory rate 16 /min Anup NILL [facility] 08-30-2023 14:03-0400 Systolic blood pressure 116 mm[Hg] Anup NILL [facility] Encounters Encounter Date Encounter Type Care Provider Facility Start: 05-06-2024 End: 05-06-2024 ambulatory Tess Leahy MD Work Phone: [facility] Work Phone: Start: 05-06-2024 End: 05-06-2024 Patient encounter procedure Tess Leahy MD Work Phone: [facility] Work Phone: Start: 02-14-2024 End: 02-14-2024 ambulatory MD Tess Leahy Work Phone: [facility] Work Phone: Start: 02-14-2024 End: 02-14-2024 Departed Referred MD Tess Leahy Work Phone: [facility] Start: 02-14-2024 Non-patient / Non-visit Tess Leahy MD Work Phone: [facility] Work Phone: Start: 02-14-2024 End: 02-14-2024 ambulatory Anup PEARL Facility::[id number] Start: 01-30-2024 End: 01-30-2024 ambulatory GUILHERME ROMO Not Available Start: 11-20-2023 Patient encounter status MD Alis Beth Work Phone: [facility] Start: 11-20-2023 End: 11-20-2023 ambulatory MD Alis Beth Work Phone: [facility] Work Phone: Start: 11-20-2023 End: 11-20-2023 Encounter for general adult medical examination without abnormal findings MD Alis Beth Work Phone: [facility] Start: 11-20-2023 End: 11-20-2023 Patient encounter procedure MD Alis Beth Work Phone: [facility] Work Phone: Start: 11-14-2023 Non-patient / Non-visit MD Alis Beth Work Phone: [facility] Work Phone: Start: 11-07-2023 Non-patient / Non-visit MD Alis Beth Work Phone: [facility] Work Phone: Start: 10-11-2023 End: 10-11-2023 ambulatory MD Alis Beth Work Phone: [facility] Work Phone: Start: 10-11-2023 End: 10-11-2023 Departed Referred MD Alis Beth Work Phone: [facility] Start: 10-11-2023 Non-patient / Non-visit MD Alis Beth [facility] Phone[facility] Work [facility]: Start: 10-11-2023 End: 10-11-2023 ambulatory Anup R KATHARINEL Facility:[id number] Start: 08-30-2023 End: 08-30-2023 ambulatory Anup R NILL Facility: [facility] Start: 08-30-2023 End: 08-30-2023 Patient encounter procedure Anup R NILL [facility] Start: 08-16-2023 ambulatory Anup ALCANTARL Facility:[facility] Start: 06-26-2023 End: 06-26-2023 ambulatory TRISTON WALKER Not Available Start: 11-11-2022 End: 11-12-[address] STEVE DAS . Facility:[facility] Start: 11-05-2022 Encounter for genera l adult medical examination without abnormal findings DR TESS LEAHY [facility] Start: 11-01-2022 End: 11-02-[address] [...] Care Activity Detail Author MR Caden carrera [facility] Immunizations Immunization Date Immunization Notes Care Provider Kat delgado 03-19-2023 influenza virus vaccine, unspecified formulation Anup NILL [facility] 05-05-2021 SARS-CoV-2 (COVID-19 ) Ad26 vaccine, recombinant Anup NILL [facility] [place] Comment on above: Result Comment: 2023: [id number] Payers Date Payer Category Payer Self-pay 2022 Unknown [id number] 1970 Unknown [id number] 2.16.84 [id number] 1970 Unknown [id number] 2.16.84 [id number] 1971 Unknown [id number] 2.16.84 [id number] 1971 Unknown [id number] 2.16.84 [id number] 1971 Unknown [id number] 2.16.84 [id number] 1971 Unknown [id number] 2.16.8 [id number] 1971 Unknown [id number] 2.16.8 [id number] 1971 Unknown [id number] 2.16.8 [id number] Unknown [facility] [employer] [id number] Unknown [id number] 2.16.8 [id number] Unknown [id number] Social History Date Type Detail Facility Start: 08-30-2023 End: 11-20-2023 Tobacco smoking status Ex-smoker (finding) [facility] Tobacco smoking status Never [facility] Sex Assigned At Female [facility] Start: 1970 Sex Assigned At Female [place] [facility] Start: 05-06-2024 Sex Female (finding) [facility] Functional Status Date Assessment Result Facility 08-30-2023 Functional Status N/A [facility] Clinical Note 08-30-2023 Note Date & Type [...] (COVID-19) Ad26 vaccine 05/05/2021 Recorded 2023-08-21: [id number] [facility] Comment on above: Result Comment: Elec tronically Signed By: DAE ROSALES, Anup Ernst\Date and Time Signed: 08/30/23 16:41 EDT Evaluation note 02-14-2013 Note Date & Type Note Facility 02-14-2013 Evaluation note Diagnosis Onset Date Hypothyroidism, unspecified February 14, 2013 acute Wellness examination acute [facility] Work Phone: Evaluation + Plan note Note Date & Type Note Facility Evaluation + Plan note No data available for this section [facility] Evaluation note Note Date & Type Note Facility Evaluation note No assessment information availa [facility] Work Phone: Evaluation note Note Date & Type Note Facility Evaluation note Diagnosis Onset Date Resolution Concern about memory acute Nove mber 2023 2:28pm Headache acute May 06, 2024 2:28pm [facility] Work Phone: Hospital Discharge instructions Note Date & Type Note Facility Hospital Discharge instructions No data available for this section [facility] Progress note Note Date & Type Note Facility Progress note No data available for this section [facility] Summary Purpose Family History No Family History [...] CREATED AUTHOR AUTHOR'S ORGANIZ ATION 11/25/2022 [facility] DATE CREATED AUTHOR AUTHOR'S ORGANIZ ATION 02/01/2024 [facility] EPIC DATE CREATED AUTHOR AUTHOR'S ORGANIZ ATION 02/25/2024 [facility] DATE CREATED AUTHOR AUTHOR'S ORGANIZ ATION 02/27/2024 [facility] Patient Care team informatio n (unrecognized section [...] End: February 14, 2024 Anup Pearl MD [facility] Attending Provider Active Start: February 14, 2024 [...] BE BASED ON THE PRIMARY CLINICAL RECORDS. [facility]. provides no warranty or guarantee of the accuracy or completeness of information in this document.
[2024-07-16 12:08] LABS: Age Gdln ACOG Testing Note (.); HPV Aptima Negative (Negative); IGP, Aptima HPV, rfx 16/18,45 Note (.)
== END 2024-07-10 19:12 | disposition home or self-care (01) ==
LOC: LAB 19:11
PROVIDERS: PCP Family Medicine; Visit Provider Obstetrics & Gynecology
DX: Z01.419 Encounter for gynecological examination (general) (routine) without abnormal findings (principal)
CPT/HCPCS: 87624; 88175

== ENCOUNTER 2024-09-20 13:10 | Outpatient (OUT) | payer BC, SELFPAY | END 2024-09-20 13:11 | disposition home or self-care (01) | LOC: PST 13:10 | PROVIDERS: PCP Family Medicine; Visit Provider Surgery | DX: Z01.818 Encounter for other preprocedural examination (principal); R19.4 Change in bowel habit; R10.13 Epigastric pain ==

== ENCOUNTER 2024-10-02 06:48 | Day surgery (SDC) | payer BC, SELFPAY ==
--- NOTE | 2024-10-02 | OP_ITS ---
OPERATION DATE: 10/02/2024 PREOPERATIVE DIAGNOSIS: Epigastric pain, history of gastric ulcer, change in bowel habits. POSTOPERATIVE DIAGNOSIS: Prepyloric 1 cm ulcer, small hiatal hernia, moderate sigmoid diverticulosis. PROCEDURE: 1. EGD with multiple biopsies of prepyloric ulcer. 2. Colonoscopy to cecum. SURGEON: Anup Pearl M.D. ANESTHESIA: Monitored anesthesia care. ESTIMATED BLOOD LOSS: Less than 1 mL. INDICATIONS AND CONSENT: Patient is a 53-year-old female with history of intermittent epigastric abdominal pain. She does have history of prepyloric ulcer, last EGD in January of 2024 with nearly complete healing. She also had recent change in bowel habits with frequent constipation and abdominal bloating. Indications, risks, benefits, alternatives of proceeding with EGD and colonoscopy were explained extensively to the patient, including the risks of bleeding, aspiration, esophageal/gastric/duodenal or colonic perforation or anesthetic complications. All of her questions were answered. Informed consent was obtained. PROCEDURE: Patient brought to the operating room, placed in the left lateral decubitus position. Monitored anesthesia care was provided. Bite block was placed in the patient?s mouth. Scope was inserted into the oropharynx. Under direct visualization, it was advanced into the esophagus, past the cricopharyngeus, down to the stomach. The stomach was insufflated with air. The pylorus was traversed down to the descending portion of the duodenum. There was no evidence of duodenitis or ulceration. There was noted to be a 1 cm prepyloric ulcer in the same position it was previously, with a white base. No visible vessel. No active bleeding. There was a hyperemic border to the area, and there was spasm of the pylorus as a result of the ulcer. The pylorus was traversed down to the descending portion of the duodenum. There was no evidence of duodenitis or ulceration. No scarring from the pyloric channel. Several biopsies were obtained of the ulcer with the pediatric biopsy forceps with minimal oozing. The scope was retroflexed in the stomach. There was noted to be a small hiatal hernia. No other gastric mucosal abnormalities. The GE junction was noted at approximately 37 cm. There was no distal esophagitis or Lawson?s changes. Remainder of the esophagus was unremarkable. The scope was then withdrawn. Patient was then positioned for colonoscopy. Rectal exam was performed, which showed no masses or blood. The scope was then inserted into the anal canal. Under direct visualization, it was advanced. With the aid of abdominal compression, it was advanced to the cecum where cecal markings were clearly identified. There was noted to be bile throughout the colon. Mucosal surfaces were carefully examined upon withdrawal of the scope. There were noted to be no mass lesions or polyps. No inflammatory changes or ulcerations. There was moderate sigmoid diverticulosis without scarring or inflammation. The scope was retroflexed in the anal canal. There was no significant hemorrhoidal disease. The scope was then withdrawn. The patient tolerated procedure well, was sent to recovery room in good condition. f/u screening colonoscopy should be in 10 years. CC: Alma Delia Bradford
--- OUTSIDE RECORDS SUMMARY | 2024-10-02 06:52 | XMS_ITS | CCD ---
Author Organization [facility] Care Team Providers Care Project Assistant Name Role Phone PIPPA ., DR WILSON Admitting Unavailabl e KARCHIP ., DR WILSON Consulting Unavailabl e PIPPA ., DR WILSON Attending Unavailabl e ARMOND, DR TESS Pickard Primary Care Unavailable FOREST [place]ILL, DR TYLOR Whitney Consulting Unavailable LEAHY, DR TESS Pickard Consulting Unavailable LEAHY, DR TESS Pickard Attending Unavailable LEAHY, DR TESS Pickard Admitting Unavailable LEAHY, DR TESS Pickard Primary Care Unavailable KARCHIP ., DR WILSON Admitting Unavailabl e KARASIK ., DR WILSON Consulting Unavailabl e KARASIK ., DR WILSON Attending Unavailabl e ARMOND, DR TESS Pickard Primary Care Unavailable TESS LEAHY Primary Care Physician MD Alis Beth Primary Care Provider MD Anup Pearl Attending Provider [phone] MD Tess Leahy Primary Care Provider [phone] MD Anup Pearl Attending Provider [phone] Tess Leahy Primary Care Unavailable Anup Pearl Admitting Unavailable Niljimmy, Anup Frias Attending Unavailable Niljimmy, Anup Frias Attending Unavailable Alis Beth Primary Care Unavailable Anup Pearl Admitting Unavailable Tess Leahy MD Primary Care Provider Anup Pearl MD Attending Provider Tess Leahy MD Primary Care Provider TRISTON VELAZQUEZ Attending Unavailable GUILHERME ROMO Attending Unavailable NILJimmy, Anup Frias Attending Unavailable NILL, Anup Frias Attending Unavailable NILLAnup Attending Unavailable Allergies Allergy Classification Reported Allergen(s) Allergy Type Date of Onset Reaction(s) Facility (1 source) No Known Medication Allergies; Translations: [No Known Medication Allergies] Propensity to adverse reactions (disorder) [facility] Repository Medications Current Medications Medication Drug Class(es) Dates Sig (Normalized) Sig (Original) estrogens, conjugated (long term) 0.3 mg oral tablet (3 sources) Estrogen Start: 07-10-2024 End: 08-09-2024 take 1 tablet by mouth once daily, then take 1 tablet by mouth once daily estrogens, conjugated, (Premarin) 0.3 MG tablet Indications: Hot flashes Take 1 tablet (0.3 mg) by mouth Daily Take 1 tablet daily by mouth for 30 days 30 tablet 3 07/10/2024 08/09/2024 Active levothyroxine sodium 0.088 mg oral tablet (10 sources) l-Thyroxine Start: 01-09-2024 take 1 tablet [...] Refills(s) 0 Start Date: 08/30/23 Status: Ordered Start: 02-13-2023 take 1 tablet by ronal th once daily in the morning levothyroxine (Synthroid, Levoxyl) 88 MCG tablet TAKE ONE TABLET BY MOUTH IN THE MORNING ON AN EMPTY STOMACH ONCE DAILY 02/13/2023 Active Multi Vitamins oral tablet (1 source) Start: 08-30-2023 take 1 tablet by mouth once daily Multi Vitamins oral tablet 1 tab(s), Oral, Daily, Refill(s) 0 Start Date: 08/30/23 Status: Ordered pantoprazole 40 mg delayed release oral tablet (8 sources) Proton Pump Inhibitor Start: 08-30-2023 take 1 tablet by mouth once daily Protonix 20 mg Tab-DR 20 mg = 1 tab(s), Oral, Daily, Refills(s) 0 Start Date: 08/30/23 Status: Ordered Start: 04-03-2023 take 1 tablet by ronal th in the morning pantoprazole (ProtoNix) 40 MG EC tablet TAKE 1 TABLET BY MOUTH IN THE MORNING AND 1 TABLET AT BEDTIME 04/03/2023 Active sucralfate 1000 mg oral tablet (7 sources) Aluminum Complex Start: 11-20-2023 take 1 tablet by mouth once before mealtime Sucralfate (Carafate) 1 gram tablet Active 1 GM PO 3x/Day before meals November 19, 2023 11:00pm sucralfate (Connie fate) 1 g tablet Take by mouth 4 (four) times a day before meals Active Completed/Discontinued Medications Medication Drug Class(es) Dates Sig (Normalized) Sig (Original) estradiol 0.5 mg oral tablet (2 sources) Estrogen Start: 07-10-2024 End: 07-10-2024 take 1 tablet by mouth once daily estradiol (Estrace) 0.5 MG tablet Indications: Hot flashes Take 1 tablet (0.5 mg) by mouth Daily Take 1 tablet by mouth for 30 days 30 tablet 11 07/10/2024 07/10/2024 Discontinued (Ineffective) Problems Active Problems Problem Classification Problem Date Documented Da te Episodic/Chronic Abdominal pain (2 sources) Epigastric pain; Translations: [Epigastric pain] Onset: 4 Episodic Administrative/social admission (2 sources) Memory finding; Translations: [Person with feared health complaint in whom no diagnosis is made] 05-06-2024 Episodic Diverticulosis and diverticulitis (1 source) Diverticular [...] conditions (not mental disorders or infectious disease) (10 sources) Encounter for screening mammogram for malignant [...] MALIG NEOPLASM DIGESTIV ORGN] Onset: 3 Episodic Residual codes; unclassified (2 sources) Flushing; Translations: [Flushing] 07-10-2024 Episodic Thyroid disorders (6 sources) Hypothyroidism; Translations: [...] Test Name Value Interpretation Reference Range Facility Ambulatory Visit Summaryon 0 09-24-2024 Ambulatory Visit Summary Ambulatory Visit Summary IOANA MARIE :1970 Visit Date:09/24/2024 Ambulatory Visit Instructions Your Care Team Attending Physician - PRESTON ROSALES, Anup Frias Primary Care Physician - ARMOND ROSALES, TESS This Is Your Medications List levothyroxine (Synthroid 88 mcg Tab) multivitamin (Multi Vitamins oral tablet) pantoprazole (Protonix 40 mg Tab-DR) sucralfate (Carafate 1 gram Tab) Procedures Performed EGD - esophagogastroduodenoscopy (02/14/2024), Colonoscopy (11/02/2016), EGD - esophagogastroduodenoscopy (11/02/2016), Colonoscopy (01/19/2011), EGD - esophagogastroduodenoscopy (01/19/2011), section, section, Cholecystectomy, Excision of ganglion cyst of foot. Discharge Vitals Heart Rate (Peripheral) 68 Respiratory Rate 16 Blood Pressure 102/70 Height 163 cm Height 64 in Weight 60.4 kg Weight 133.159 lb BMI 22.73 Medications What How Much When Why Instructions Unchanged levothyroxine (Synthroid 88 mcg Tab) 1 Tablets By Mouth Every day Unchanged multivitamin (Multi Vitamins oral tablet) 1 Tablets By Mouth Every day Unchanged pantoprazole (Protonix 40 mg Tab-DR) 1 Tablets By Mouth Every day History of gastric ulcer Epigastric pain Unchanged sucralfate (Carafate 1 gram Tab) 1 Tablets By Mouth Four times a day (before meals and at bedtime) Allergies No Known Allergies No Known Medication Allergies Problems Ongoing - Any problem that you are currently receiving treatment for. Chronic GERD Diverticulosis Epigastric pain History of gastric ulcer History of gastritis Hypothyroidism Patient Survey You may receive a survey via text or e-mail asking about your office visit. Please share your experience with us by completing your survey. We appreciate your feedback and thank you for choosing us for your care. Normal [facility] IGP,APTIMA HPV,AGE GDLNon AGE GDLN ACOG TESTING Note . [facility] Comment on above: TESTS RESULT FLAG UN ITS REF RANGE LAB Clinician Provided Cytology Information Source.............Cervix;Endocervix No. of containers..01 ThinPrep Vial Age Algo ACOG Valencia... 30-65 01 FLAG LEGEND: L-Low Normal,H-High Normal,LL-Alert Low,HH-Alert High <-Panic Low,>-Panic High,A-Abnormal,AA-Critical Abnormal Performed at: 01 =G [facility] [address] [place] [address] Lilo Ferrer MD, HPV APTIMA Negative Negative [facility] Comment on above: This nucleic acid am plification test detects fourteen high- risk HPV types (16,18,31,33,35,39,45,51,52,56,58,59,66,68) without differentiation. Performed at: =G - [facility] [id number] Immigration Paralegal: Lilo Ferrer MD, Phone: [phone] Performed at: - [facility], [place] [id number] Immigration Paralegal: Lilo Ferrer MD, Phone: [phone] IGP, APTIMA HPV, RFX 16/18,45 Note . [facility] Comment on above: TESTS RESULT FLAG UN ITS REF RANGE LAB DIAGNOSIS: 02 NEGATIVE FOR INTRAEPITHELIAL LESION OR MALIGNANCY. Specimen adequacy: 02 Satisfactory for evaluation. Endocervical and/or squamous metaplastic cells (endocervical component) are present. Performed by: Mert Pantoja, Forestry Support Specialist . 02 Note: Note 02 The Pap smear is a screening test designed to aid in the detection of premalignant and malignant conditions of the uterine cervix. It is not a diagnostic procedure and should not be used as the sole means of detecting cervical cancer. Both false-positive and false-negative reports do occur. Test Methodology: Note 02 This liquid based ThinPrep(R) pap test was screened with the use of an image guided system. HPV Genotype Reflex Note 02 Criteria not met, HPV Genotype not performed. FLAG LEGEND: L-Low Normal,H-High Normal,LL-Alert Low,HH-Alert High <-Panic Low,>-Panic High,A-Abnormal,AA-Critical Abnormal Performed at: 02 [facility] [address] [place] [address] Lilo Ferrer MD, BRUSH-SPATULA CERVIX ENDOCERVIX [facility] Basophils Auto (Bld) [#/Vol] on 02-14-2024 Basophils (Bld) [#/Vol] Automated basophil count 0.0-0.1 [facility] Basophils/100 WBC Auto (Bld) on 02-14-2024 Basophils/100 WBC (Bld) Automated basophil % 0. 2-2.0 [facility] Eosinophils/100 WBC Auto (Bl d)on 02-14-2024 Eosinophils/100 WBC (Bld) Automated eosinophil % High 0.9-7.0 [facility] Erythrocyte distribution wid th Auto (RBC) [Ratio]on 02-14-2024 Erythrocyte distribution width (RBC) [Ratio] Erythrocyte distribution width [Ratio] by Automated count 11.0-15.0 [facility] HCG ( test) IA.rapi d Ql (U)on 02-14-2024 HCG ( test) Ql (U) Urine human chorionic gonadotropin (hCG) detection by immunoassay NEGATIVE [facility] Hematocrit Auto (Bld) [Volum e fraction]on 02-14-2024 Hematocrit (Bld) [Volume fraction] Hematocrit [Volume Fraction] of Blood by Automated count 36.0-48.0 [facility] Hemoglobin [Mass/volume] in Bloodon 02-14-2024 Hemoglobin (Bld) [Mass/Vol] Hemoglobin [Mass/volume] in Blood 12.0-16.0 [facility] Shahab 02-14-2024 L Specimen: [id number] Received: 02/15/24 Status: KATIE Quinn Num: [id number] Spec Type: Surgical Subm Dr: Anup Pearl MD FACS Tissues: A Esophagus Biopsy (ANTRAL ULCER BX) Procedures: HE/2, Gross/Micro L4 Age/ Patient Sex Location Account Attending Physician Ioana Marie 53/F [facility] [id number] Anup Pearl MD FACS SPEC NUM: [id number] RECD: 02/15/24 STATUS: KATIE QUINN NUM: [id number] CARYN: 02/14/[address]: Anup Pearl MD FACS ENTERED: 02/15/24 [facility] DR: Prerna Lee SPEC TYPE: Surgical DEPT: JEFRY TRUONG ENTERED BY: [id number] RECV BY: [id number] ORDERED: HE/2, Gross/Micro L4 ORDERED: HE/2, Gross/Micro [...] is entirely submitted in cassette A1. Specimen: [id number] Received: 02/15/24 Status: KATIE Kai Num: [id number] Spec Type: Surgical Subm Dr: Anup Pearl MD FACS Tissues: A Esophagus Biopsy (ANTRAL ULCER BX) Procedures: HE/2, Gross/Micro L4 Patient: Ioana Marie [id number] (Continued) Specimen: [id number] Received: 02/15/24 (Continued) Signed (signature on file) Samantha Hirsch MD 02/23/24 0923 Specimen: [id number] Received: 02/15/24 Status: JHONWade Quinn Num: [id number] Spec Type: Surgical Subm Dr: Anup Pearl MD [facility] Tissues: A Esophagus Biopsy (ANTRAL ULCER BX) Procedures: BUD/Jennifer, Gross/Micro L4 Patient: Ioana Marie [id number] (Continued) Specimen: [id number] Received: 02/15/24 (Continued) Microscopic Description Microscopic examinations are performed supporting the above interpretation CPT Codes 32301 Specimen: [id number] Received: 02/15/24 Status: KATIE Kai Num: [id number] Spec Type: Surgical Subm Dr: Anup Pearl MD FACS Tissues: A Esophagus Biopsy (ANTRAL ULCER BX) Procedures: HE/Jennifer, Gross/Micro L4 Patient: Ioana Marie [id number] (Continued) Signed (signature on file) Samantha Hirsch MD 02/23/24 0923 Normal [facility] Laboratory - Hematology and Cell countson 02-14-2024 Immature granulocytes/100 WBC (Bld) 0.2 % 0.0-0.5 [facility] Leukocytes [#/volume] correc stephanie for nucleated erythrocytes in Blood by Automated counon 02-14-2024 WBC corrected for nucl RBC Auto (Bld) [#/Vol] Leukocytes [#/volume] corrected for nucleated erythrocytes in Blood by Automated coun 4.0-11.0 [facility] Lymphocytes Auto (Bld) [#/Vo l]on 02-14-2024 Lymphocytes (Bld) [#/Vol] Lymphocytes [#/volume] in Blood by Automated count 1.2-3.8 [facility] Lymphocytes/100 WBC Auto (Bl d)on 02-14-2024 Lymphocytes/100 WBC (Bld) Lymphocytes/100 leukocytes in Blood by Automated count 20.5-60.0 [facility] MCH Auto (RBC) [Entitic mass ]on 02-14-2024 MCH (RBC) [Entitic mass] MCH [Entitic mass] by Automated count 26.7-34.0 [facility] MCHC Auto (RBC) [Mass/Vol]on 02-14-2024 MCHC (RBC) [Mass/Vol] MCHC [Mass/volume] by Automated count 29.9-35.2 [facility] MCV Auto (RBC) [Entitic vol] on 02-14-2024 MCV (RBC) [Entitic vol] MCV [Entitic vol ume] by Automated count 81.0-99.0 [facility] Monocytes Auto (Bld) [#/Vol] on 02-14-2024 Monocytes (Bld) [#/Vol] Automated blood monocyte count 0.3-0.8 [facility] Monocytes/100 WBC Auto (Bld) on 02-14-2024 Monocytes/100 WBC (Bld) Automated monocyte % 1. 7-12.0 [facility] Neutrophils Auto (Bld) [#/Vo l]on 02-14-2024 Neutrophils (Bld) [#/Vol] Neutrophils [#/volume] in Blood by Automated count 1.4-6.5 [facility] Neutrophils/100 WBC Auto (Bl d)on 02-14-2024 Neutrophils/100 WBC (Bld) Automated neutrophil % Low 43.0-75.0 [facility] No Panel Informationon 02-13 Eosinophils # (Auto) 1.2 10 3/uL High 0.0-0.7 [facility] Immature Granulocyte # (Auto) 0.01 10 3/uL 0.00-0.03 [facility] Platelet mean volume Auto (B ld) [Entitic vol]on 02-14-2024 Platelet mean volume (Bld) [Entitic vol] Platelet mean volume [Entitic volume] in Blood by Automated count 9.5-13.5 [facility] Platelets Auto (Bld) [#/Vol] on 02-14-2024 Platelets (Bld) [#/Vol] Platelets [#/vol ume] in Blood by Automated count 150-450 [facility] RBC Auto (Bld) [#/Vol]on RBC (Bld) [#/Vol] Erythrocytes [#/volu me] in Blood by Automated count 4.20-5.40 [facility] Basophils Auto (Bld) [#/Vol] on 11-14-2023 Basophils (Bld) [#/Vol] 0.1 10 3/uL 0.0-0.1 [facility] Basophils/100 WBC Auto (Bld) on 11-14-2023 Basophils/100 WBC (Bld) 0.8 % 0.2-2.0 F [facility] Cholesterol in LDL Calc [Mas s/Vol]on 11-14-2023 Cholesterol in LDL [Mass/Vol] 88.0 mg/dL [facility] Comment on above: <100 mg/dl [id number] 0-129 mg/dl NEAR OR ABOVE [id number] mg/dl BORDERLINE [id number] mg/dl HIGH>190 mg/dl VERY HIGH Cholesterol in VLDL Calc [Ma ss/Vol]on 11-14-2023 Cholesterol in VLDL [Mass/Vol] 10.2 mg/dL [facility] Eosinophils/100 WBC Auto (Bl d)on 11-14-2023 Eosinophils/100 WBC (Bld) 11.7 % 0.9-7.0 [facility] Erythrocyte distribution wid th Auto (RBC) [Ratio]on 11-14-2023 Erythrocyte distribution width (RBC) [Ratio] 12.0 % 11.0-15.0 [facility] Estimated glomerular filtrat ion rate (GFR) non- Americanon 11-14-2023 GFR/1.73 sq M.predicted among non-blacks MDRD (S/P/Bld) [Vol rate/Area] mL/min/{1.73_m2} >=60 [facility] Globulin Calc (S) [Mass/Vol] on 11-14-2023 Globulin (S) [Mass/Vol] 3.4 g/dL F [facility] Hematocrit Auto (Bld) [Volum e fraction]on 11-14-2023 Hematocrit (Bld) [Volume fraction] 39.6 % 36.0-48.0 [facility] Hemoglobin [Mass/volume] in Bloodon 11-14-2023 Hemoglobin (Bld) [Mass/Vol] 13.2 g/dL 12.0-16.0 [facility] Laboratory - Chemistry and C hemistry - challengeon 11-14-2023 Albumin [Mass/Vol] 3.4 g/dL 3.4-5.0 [facility] ALP [Catalytic activity/Vol] 51 U/L 46-116 [facility] ALT [Catalytic activity/Vol] 16 U/L 14-59 [facility] AST [Catalytic activity/Vol] 21 U/L 15-37 [facility] Bilirubin [Mass/Vol] 1.1 mg/dL 0.2-1.0 [facility] Calcium [Mass/Vol] 8.7 mg/dL 8.5-10.1 [facility] Chloride [Moles/Vol] 103 mmol/L 98-107 [facility] Cholesterol [Mass/Vol] 177 mg/dL <=200 Fi [facility] Cholesterol in HDL [Mass/Vol] 79 mg/dL 40-60 [facility] Comment on above: > or =60 mg/dl - LOW CARDIOVASCULAR RISK<40 mg/dl - HIGH CARDIOVASCULAR RISK CO2 [Moles/Vol] 27.1 mmol/L 21.0-32.0 [facility] Creatinine [Mass/Vol] 0.81 mg/dL 0.55-1.02 [facility] GFR/1.73 sq M.predicted MDRD (S/P/Bld) [Vol rate/Area] mL/min/{1.73_m2} >=60 [facility] Glucose [Mass/Vol] 92 mg/dL 74-106 [facility] Potassium [Moles/Vol] 4.4 mmol/L 3.5-5.1 [facility] Protein [Mass/Vol] 6.8 g/dL 6.4-8.2 [facility] Sodium [Moles/Vol] 137 mmol/L 136-145 [facility] Triglyceride [Mass/Vol] 51 mg/dL <=150 F [facility] Urea nitrogen [Mass/Vol] 21.0 mg/dL 7.0-18.0 [facility] Urea nitrogen/Creatinine [Mass ratio] 25.9 mg/mg [facility] Laboratory - Hematology and Cell countson 11-14-2023 Immature granulocytes/100 WBC (Bld) 0.2 % 0.0-0.5 [facility] Leukocytes [#/volume] correc stephanie for nucleated erythrocytes in Blood by Automated counon 11-14-2023 WBC corrected for nucl RBC Auto (Bld) [#/Vol] 8.4 10 3/uL 4.0-11.0 [facility] Lymphocytes Auto (Bld) [#/Vo l]on 11-14-2023 Lymphocytes (Bld) [#/Vol] 1.7 10 3/uL 1.2-3.8 [facility] Lymphocytes/100 WBC Auto (Bl d)on 11-14-2023 Lymphocytes/100 WBC (Bld) 20.5 % 20.5-60.0 [facility] MCH Auto (RBC) [Entitic mass ]on 11-14-2023 MCH (RBC) [Entitic mass] 31.7 pg 26.7-34.0 [facility] MCHC Auto (RBC) [Mass/Vol]on 11-14-2023 MCHC (RBC) [Mass/Vol] 33.3 g/dL 29.9-35.2 [facility] MCV Auto (RBC) [Entitic vol] on 11-14-2023 MCV (RBC) [Entitic vol] 95.2 fL 81.0-99.0 [facility] Monocytes Auto (Bld) [#/Vol] on 11-14-2023 Monocytes (Bld) [#/Vol] 0.5 10 3/uL 0.3-0.8 [facility] Monocytes/100 WBC Auto (Bld) on 11-14-2023 Monocytes/100 WBC (Bld) 5.5 % 1.7-12.0 [facility] Neutrophils Auto (Bld) [#/Vo l]on 11-14-2023 Neutrophils (Bld) [#/Vol] 5.2 10 3/uL 1.4-6.5 [facility] Neutrophils/100 WBC Auto (Bl d)on 11-14-2023 Neutrophils/100 WBC (Bld) 61.3 % 43.0-75.0 [facility] No Panel Informationon 11-13 Eosinophils # (Auto) 1.0 10 3/uL 0.0-0.7 [facility] Immature Granulocyte # (Auto) 0.02 10 3/uL 0.00-0.03 [facility] Platelet mean volume Auto (B ld) [Entitic vol]on 11-14-2023 Platelet mean volume (Bld) [Entitic vol] 10.3 fL 9.5-13.5 [facility] Platelets Auto (Bld) [#/Vol] on 11-14-2023 Platelets (Bld) [#/Vol] 235 10 3/uL 150-450 [facility] RBC Auto (Bld) [#/Vol]on RBC (Bld) [#/Vol] 4.16 10 6/uL 4.20-5.40 [facility] Serum or plasma albumin/glob ulin mass ratioon 11-14-2023 Albumin/Globulin [Mass ratio] 1.0 {ratio} [facility] Serum or plasma anion gap de terminationon 11-14-2023 Anion gap [Moles/Vol] 11.3 mmol/L [facility] Serum or plasma total choles terol/high density lipoprotein (HDL) cholesterol mass abdirashid 11-14-2023 Cholesterol.total/Shelley sterol in HDL [Mass ratio] 2.2 {ratio} [facility] Comment on above: 3.3 - 4.4 LOW RISK4. 4 - 7.1 AVERAGE RISK7.1 - 11.0 MODERATE RISK>11.0 HIGH RISK Glucose mean value [Mass/vol ume] in Blood Estimated from glycated hemoglobinon 11-07-2023 Average glucose Estimated from glycated hemoglobin (Bld) [Mass/Vol] 105 mg/dL [facility] Laboratory - Chemistry and C hemistry - challengeon 11-07-2023 Ferritin [Mass/Vol] 35.0 ng/mL 8.0-252.0 [facility] Free T4 [Mass/Vol] 0.96 ng/dL 0.76-1.46 [facility] Glucose [Mass/Vol] 88 mg/dL 74-106 [facility] T4 [Mass/Vol] 7.70 ug/dL 4.80-13.90 [facility] TSH Qn 2.126 m[IU]/L 0.358-3.74 0 [facility] Laboratory - Hematology and Cell countson 11-07-2023 HbA1c (Bld) [Mass fraction] 5.3 % 4.5-6.2 [facility] Comment on above: ADA RECOMMENDED LIMI T 4.0 - 6.0ADA THERAPEUTIC TARGET < 7.0ACTION SUGGESTED> 7.0 No Panel Informationon 11-06 25-Hydroxy Vitamin D Total 29.1 ng/mL [facility] Comment on above: <20 ng/mL Vit D defi cient20-<30 ng/mL Vit D kfodnmfmjtrc00-252 ng/mL Vit D sufficient>100 ng/mL Potential Toxicity C-Peptide 1.4 ng/mL 1.1-4.4 [facility] Comment on above: C-Peptide reference interval is for fasting patients. C-Peptide reference interval is for fasting patients. Dehydroepiandrosterone Sulfate 79.4 ug/dL 41.2-243.7 [facility] Free Cortisol, Dialysis, LCMS 0.524 ug/dL . [facility] Comment on above: These tests were dev eloped and their performancecharacteristics determined by [facility]. They have not beencleared or approved by the Food and Drug Administration.Reference Range:8 AM 0.10 - 1.204 PM 0.042 - 0.872Performed at: [facility] [address] [place], [place] [id number] Director: Shiv Padron MD, Phone: [phone] Free Triiodothyronine 2.33 pg/mL 2.18-3.98 [facility] Reverse Triiodothyronine (T3) 16.0 ng/dL 9.2-24.1 [facility] Comment on above: This test was develo ped and its performance characteristicsdetermined by [facility]. It has not been cleared orapproved by the Food and Drug Administration.Performed at: [facility] [employer] [facility] [id number] Director: Jennifer Ruff MD, Phone: [phone] Sex Hormone Binding Globulin 107.0 nmol/L 17.3-125.0 [facility] Comment on above: Performed at: [facility] [address] [id number] Director: Mark Gallardo PhD, Phone: [phone] Performed at: [facility] [address] [id number] Director: Mark Gallardo PhD, Phone: [phone] Testosterone Level 15 ng/dL 4-50 [facility] Serotonin (P) [Mass/Vol]on 0 11-07-2023 Serotonin 170 ng/mL [facility] Comment on above: This test was develo ped and its performance characteristicsdetermined by [facility]. It has not been cleared orapproved by the Food and Drug Administration.Performed at: [facility] [address] [id number] Director: Jennifer Ruff MD, Phone: [phone] This test was develo ped and its performance characteristicsdetermined by [facility]. It has not been cleared orapproved by the Food and Drug Administration.Performed at: [address] [id number] Director: Jennifer Ruff MD, Phone: [phone] Serum estrone measurementon 11-07-2023 E1 [Mass/Vol] 106 pg/mL . [facility] Comment on above: Range Adult (Premeno pausal) 27 - 231 Menstrual Cycle (1-10 days) 19 - 149 Menstrual Cycle (11-20 days) 32 - 176 Menstrual Cycle (21-30 days) 37 - 200 Adult (Postmenopausal) 0 - 125Performed at: [address] [id number] Director: Jennifer Ruff MD, Phone: [phone] Serum or plasma estradiol (E 2) measurement (mass/volume)on 11-07-2023 E2 [Mass/Vol] 238.0 pg/mL . [facility] Comment on above: Adult Female Range F ollicular phase 12.5 - 166.0 Ovulation phase 85.8 - 498.0 Luteal phase 43.8 - 211.0 Postmenopausal <6.0 - 54.7 1st trimester 215.0 - >4300.0Roche ECLIA methodology Serum or plasma insulin hanna urement (units/volume)on 11-07-2023 Insulin Qn 3.5 u[iU]/mL 2.6-24.9 [facility] Comment on above: Performed at: - [facility] [address] [id number] Director: Mark Gallardo PhD, Phone: [phone] Serum or plasma progesterone measurement (mass/volume)on 11-07-2023 Progesterone [Mass/Vol] 0.5 ng/mL . [facility] Comment on above: Follicular phase 0.1 - 0.9 Luteal phase 1.8 - 23.9 Ovulation phase 0.1 - 12.0 First trimester 11.0 - 44.3 Second trimester 25.4 - 83.3 Third trimester 58.7 - 214.0 Postmenopausal 0.0 - 0.1 TPO Ab Qnon 11-07-2023 Thyroid Peroxidase Antibodies 382 [IU]/mL 0-34 [facility] Testosterone Free [Mass/Vol] on 11-07-2023 Free Testosterone 0.8 pg/mL 0.0-4.2 [facility] Comment on above: Performed at: [facility] [address] [id number] Director: Mark Gallardo PhD, Phone: [phone] at: [employer] [id number] Director: Jennifer Ruff MD, Phone: [phone] Performed at: [employer] [place] [address] [id number] Director: Mark Gallardo PhD, Phone: [phone] at: [facility] [employer] [id number] Director: Jennifer Ruff MD, Phone: [phone] Thyroglobulin Ab [facility] 2023 Anti-Thyroglobulin Antibody 933.8 [IU]/mL 0.0-0.9 [facility] Comment on above: Thyroglobulin Antibo dy measured by Radha PeekMethodologyIt should be noted that the presence of thyroglobulinantibodies may not be pathogenic nor diagnostic, especiallyat very low levels. The assay staking press operator has found thatfour percent of individuals without evidence of thyroiddisease or autoimmunity will have positive TgAb levels upto 4 IU/mL.Performed at: [employer] [id number] Director: Mark Gallardo PhD, Phone: [phone] Thyroglobulin Antibo dy measured by QuellanMethodologyIt should be noted that the presence of thyroglobulinantibodies may not be pathogenic nor diagnostic, especiallyat very low levels. The assay staking press operator has found thatfour percent of individuals without evidence of thyroiddisease or autoimmunity will have positive TgAb levels upto 4 IU/mL.Performed at: [facility] [place] [address] [id number] Director: Mark Gallardo PhD, Phone: [phone] Thyroglobulin Antibo dy measured by QuellanMethodologyIt should be noted that the presence of thyroglobulinantibodies may not be pathogenic nor diagnostic, especiallyat very low levels. The assay staking press operator has found thatfour percent of individuals without evidence of thyroiddisease or autoimmunity will have positive TgAb levels upto 4 IU/mL.Performed at: [address] [id number] Director: Mark Gallardo PhD, Phone: [phone] Thyroglobulin [Mass/volume] in Serum or Plasmaon 11-07-2023 Thyroglobulin [Mass/Vol] 9.4 ng/mL . [facility] Comment on above: This test was develo ped and its performance characteristicsdetermined by [employer]. It has not been cleared or approvedby [...] assay quantitation limit is 2.0 ng/mL.Performed at: [employer] [address] [place], [place] [id number] Director: Shiv Padron MD, Phone: [phone] Operative Reporton Operative Report [id number]#1.00TIFF Normal [facility] Pathology Noteon 10-13-2023 Pathology Note [id number]#1.00TIFF Normal [facility] HCG ( test) IA.rapi d Ql (U)on 10-11-2023 HCG ( test) Ql (U) Negative NEGATIVE [facility] Shahab 10-11-2023 L Specimen: [id number] Received: 10/11/23 Status: SOUWade Rezaira Num: [id number] Spec Type: Surgical Subm Dr: Anup Pearl MD FACS Tissues: A Stomach - Biopsy/Polyp (ANTRUM BX) Procedures: HE/2, Gross/Micro L4 Age/ Patient Sex Location Account Attending Physician Ioana Marie 52/F LABELL [id number] Anup Pearl MD FACS SPEC NUM: [id number] RECD: 10/11/23 STATUS: SOUWade RE NUM: [id number] CARYN: 10/11/[address] [facility] DR: Anpu Pearl MD FACS ENTERED: 10/11/23 [facility] DR: Prerna Lee SPEC TYPE: Surgical DEPT: [...] Antral ulcer, small hiatal hernia CPT Codes 61975, 16348 Specimen: [id number] Received: 10/11/23 Status: SOUWade Req Num: [id number] Spec Type: Surgical Subm Dr: Anup Pearl MD FACS Tissues: A Stomach - Biopsy/Polyp (ANTRUM BX) Procedures: HE/2, Gross/Micro L4 Patient: Ioana Marie [id number] (Continued) Signed (signature on file) Joshua Marshall MD 10/12/23 1548 Normal [facility] Lab Reportson 10-11-2023 Lab Reports [id number]#1.00TIFF [facility] Pre-Certification Formon Pre-Certification Form [id number]#1.00TIFF [facility] MG MAMM SCREEN 3D CHRISTAL CADon 11-11-2022 MG MAMM SCREEN 3D CHRISTAL CAD Patient: IOANA MARIEAmerica Exam Date: 11/11/2022 : 1970 Gender:F Ordering : DR TRISTON VELAZQUEZ . Admission #: [id number] Family : Order #: [id number] CLICK HERE TO VIEW EXAM RADIOLOGY REPORT [...] breast cancer at age 69. LOCATION: [facility] BREAST COMPOSITION: Extremely dense, which lowers [...] MD on 11/11/2022 at 13:58 Normal [facility] CBC AUTO DIFFon 11-01-2022 BASO # 0.1 103/ul Normal 0.0-0.1 [facility] Comment on above: Performed By: #### C BC #### [facility] [address] [place] [address] Dr. Edelmira Hirsch Basophils/100 WBC (Bld) 1.0 % Normal 0.2-2.0 [facility] Comment on above: Performed By: #### C BC #### [facility] [address] [place] [address] Dr. Edelmira Hirsch EO # 1.0 103/ul Critically high 0.0-0.7 [facility] Comment on above: Performed By: #### C BC #### [facility] [address] [place] [address] Dr. Edelmira Hirsch Eosinophils/100 WBC (Bld) 13.9 % Critically high 0.9-7.0 [facility] Comment on above: Performed By: #### C BC #### [facility] [address] [place] [address] Dr. Edelmira Hirsch Erythrocyte distribution width (RBC) [Ratio] 12.2 % Normal 11.0-15.0 [facility] Comment on above: Performed By: #### C BC #### [facility] [address] [place] [address] Dr. Edelmira Hirsch Hematocrit (Bld) [Volume fraction] 40.5 % Normal 36.0-48.0 [facility] Comment on above: Performed By: #### C BC #### [facility] [address] [place] [address] Dr. Edelmira Hirsch Hemoglobin (Bld) [Mass/Vol] 13.8 g/dL Normal 12.0-16.0 [facility] Comment on above: Performed By: #### C BC #### [facility] [address] [place] [address] Dr. Edelmira Hirsch IG # 0.02 10e3/ul Normal 0.00-0.03 [facility] Comment on above: Performed By: #### C BC #### [facility] [address] [place] [address] Dr. Edelmira Hirsch IG % 0.3 % Normal 0.0-0.5 [facility] Comment on above: Performed By: #### C BC #### [facility] [address] [place] [address] Dr. Edelmira Hirsch LYMPH # 1.8 103/ul Normal 1.2-3.8 [facility] Comment on above: Performed By: #### C BC #### [facility] [address] [place] [address] Dr. Edelmira Hirsch Lymphocytes/100 WBC (Bld) 24.6 % Normal 20.5-60.0 [facility] Comment on above: Performed By: #### C BC #### [facility] [address] [place] [address] Dr. Edelmira Hirsch MANUAL DIFF REQ NO Normal [facility] Comment on above: Performed By: #### C BC #### [facility] [address] [place] [address] Dr. Edelmira Hirsch MCH (RBC) [Entitic mass] 32.2 pg Normal 26.7-34.0 [facility] Comment on above: Performed By: #### C BC #### [facility] [address] [place] [address] Dr. Edelmira Hirsch MCHC (RBC) [Mass/Vol] 34.1 g/dL Normal 29.9-35.2 [facility] Comment on above: Performed By: #### C BC #### [facility] [address] [place] [address] Dr. Edelmira Hirsch MCV (RBC) [Entitic vol] 94.6 fL Normal 81.0-99.0 [facility] Comment on above: Performed By: #### C BC #### [facility] [address] [place] [address] Dr. Edelmira Hirsch MONO # 0.5 103/ul Normal 0.3-0.8 [facility] Comment on above: Performed By: #### C BC #### [facility] [address] [place] [address] Dr. Edelmira Hirsch Monocytes/100 WBC (Bld) 6.5 % Normal 1.7-12.0 [facility] Comment on above: Performed By: #### C BC #### [facility] [address] [place] [address] Dr. Edelmira Hirsch NEUT # 3.8 103/ul Normal 1.4-6.5 [facility] Comment on above: Performed By: #### C BC #### [facility] [address] [place] [address] Dr. Edelmira Hirsch Neutrophils/100 WBC (Bld) 53.7 % Normal 43.0-75.0 [facility] Comment on above: Performed By: #### C BC #### [facility] [address] [place] [address] Dr. Edelmira Hirsch Platelet mean volume (Bld) [Entitic vol] 10.0 fL Normal 9.5-13.5 [facility] Comment on above: Performed By: #### C BC #### [facility] [address] [place] [address] Dr. Edelmira Hirsch PLT 276 103/ul Normal 150-450 [facility] Comment on above: Performed By: #### C BC #### [facility] [address] [place], [place] [address] Dr. Edelmira Hirsch RBC 4.28 106/ul Normal 4.20-5.40 [facility] Comment on above: Performed By: #### C BC #### [facility] [address] [place] [address] Dr. Edelmira Hirsch WBC 7.1 103/ul Normal 4.0-11.0 [facility] Comment on above: Performed By: #### C BC #### [facility] [address] [place] [address] Dr. Edelmira Hirsch GLYCOHEMOGLOBIN A1Con 2022 ADA RECOMMENDATION SEE BELOW Normal [facility] Comment on above: Result Comment: ADA RECOMMENDED LIMIT 4.0 - 6.0 ADA THERAPEUTIC TARGET < 7.0 ACTION SUGGESTED > 7.0 Performed By: #### A 1C #### [facility] [address] [place] [address] Dr. Edelmira Hirsch Glucose [Mass/Vol] 100 mg/dL Normal [facility] Comment on above: Performed By: #### A 1C #### [facility] [address] [place] [address] Dr. Edelmira Hirsch HbA1c (Bld) [Mass fraction] 5.1 % Normal 4.5-6.2 [facility] Comment on above: Performed By: #### A 1C #### [facility] [address] [place] [address] Dr. Edelmira Hirsch LIPID PROFILEon 11-01-2022 CHOL-HDL RATIO NORM SEE BELOW Normal [facility] Comment on above: Result Comment: 3.3 - 4.4 LOW RISK 4.4 - 7.1 AVERAGE RISK 7.1 - 11.0 MODERATE RISK >11.0 HIGH RISK Performed By: #### L IPID, CMP, TSH #### [facility] [address] [place] [address] Dr. Edelmira Hirsch Cholesterol [Mass/Vol] 164 mg/dL Normal <=200 Th [facility] Comment on above: Performed By: #### L IPID, CMP, TSH #### [facility] [address] [place] [address] Dr. Edelmira Hirsch Cholesterol in HDL [Mass/Vol] 80 mg/dL Critically high 40-60 [facility] Comment on above: Performed By: #### L IPID, CMP, TSH #### [facility] [address] [place] [address] Dr. Edelmira Hirsch Cholesterol in LDL [Mass/Vol] 76.8 mg/dL Normal [facility] Comment on above: Performed By: #### L IPID, CMP, TSH #### [facility] [address] [place] [address] Dr. Edelmira Hirsch Cholesterol.total/Shelley sterol in HDL [Mass ratio] 2.1 {ratio} Normal [facility] Comment on above: Performed By: #### L IPID, CMP, TSH #### [facility] [address] [place] [address] Dr. Edelmira Hirsch HDL NORMAL > or = 60 mg/dl - LO W CARDIOVASCULAR RISK <40 mg/dl - HIGH CARDIOVASCULAR RISK Normal [facility] Comment on above: Performed By: #### L IPID, CMP, TSH #### [facility] [address] [place] [address] Dr. Edelmira Hirsch LDL CALC NORMAL SEE BELOW Normal [facility] Comment on above: Result Comment: <100 mg/dl OPTIMAL 100 - 129 mg/dl NEAR OR ABOVE OPTIMAL 130 - 159 mg/dl BORDERLINE HIGH 160 - 189 mg/dl HIGH >190 mg/dl VERY HIGH Performed By: #### L IPID, CMP, TSH #### [facility] [address] [address] [address] Edelmira Hirsch Triglyceride [Mass/Vol] 36 mg/dL Normal <=150 T [facility] Comment on above: Performed By: #### L IPID, CMP, TSH #### [facility] [address] [address] [address] Edelmira Hirsch VLDL CALC 7.2 mg/dL Normal [facility] Comment on above: Performed By: #### L IPID, CMP, TSH #### [facility] [address] [place] [address] Dr. Edelmira Hirsch PROF 14(COMP METB)on 023 Albumin [Mass/Vol] 3.5 g/dL Normal 3.4-5.0 [facility] Comment on above: Performed By: #### L IPID, CMP, TSH #### [facility] [address] [place] [address] Dr. Edelmira Hirsch Albumin/Globulin [Mass ratio] 0.9 {ratio} Normal [facility] Comment on above: Performed By: #### L IPID, CMP, TSH #### [facility] [address] [address] [address] Edelmira Hirsch ALP [Catalytic activity/Vol] 51 U/L Normal 46-116 [facility] Comment on above: Performed By: #### L IPID, CMP, TSH #### [facility] [address] [place] [address] Dr. Edelmira Hirsch ALT [Catalytic activity/Vol] 23 U/L Normal 14-59 [facility] Comment on above: Performed By: #### L IPID, CMP, TSH #### [facility] [address] [address] [address] Edelmira Hirsch Anion gap [Moles/Vol] 11.2 mmol/L Normal [facility] Comment on above: Performed By: #### L IPID, CMP, TSH #### [facility] [address] [place] [address] Dr. Edelmira Hirsch AST [Catalytic activity/Vol] 18 U/L Normal 15-37 [facility] Comment on above: Performed By: #### L IPID, CMP, TSH #### [facility] [address] [place] [address] Dr. Edelmira Hirsch Bilirubin [Mass/Vol] 0.9 mg/dL Normal 0.2-1.0 [facility] Comment on above: Performed By: #### L IPID, CMP, TSH #### [facility] [address] [place] [address] Dr. Edelmira Hirsch Calcium [Mass/Vol] 9.4 mg/dL Normal 8.5-10.1 [facility] Comment on above: Performed By: #### L IPID, CMP, TSH #### [facility] [address] [place], [place] [address] Dr. Edelmira Hirsch Chloride [Moles/Vol] 104 mmol/L Normal 98-107 [facility] Comment on above: Performed By: #### L IPID, CMP, TSH #### [facility] [address] [place] [address] Dr. Edelmira Hirsch CO2 [Moles/Vol] 29.5 mmol/L Normal 21.0-32.0 [facility] Comment on above: Performed By: #### L IPID, CMP, TSH #### [facility] [address] [address] [address] Edelmira Hirsch Creatinine [Mass/Vol] 0.86 mg/dL Normal 0.55-1.02 [facility] Comment on above: Performed By: #### L IPID, CMP, TSH #### [facility] [address] [place] [address] Dr. Edelmira Hirsch EGFR-AF TOGOLESE >60 Normal >=60 [facility] Comment on above: Performed By: #### L IPID, CMP, TSH #### [facility] [address] [place] [address] Dr. Edelmira Hirsch EGFR-NON AF TOGOLESE >60 Normal >=60 [facility] Comment on above: Performed By: #### L IPID, CMP, TSH #### [facility] [address] [place] [address] Dr. Edelmira Hirsch Globulin (S) [Mass/Vol] 3.7 g/dL Normal T [facility] Comment on above: Performed By: #### L IPID, CMP, TSH #### [facility] [address] [place] [address] Dr. Edelmira Hirsch Glucose [Mass/Vol] 97 mg/dL Normal 74-106 [facility] Comment on above: Performed By: #### L IPID, CMP, TSH #### [facility] [address] [place] [address] Dr. Edelmira Hirsch Potassium [Moles/Vol] 4.7 mmol/L Normal 3.5-5.1 [facility] Comment on above: Performed By: #### L IPID, CMP, TSH #### [facility] [address] [place] [address] Dr. Edelmira Hirsch Protein [Mass/Vol] 7.2 g/dL Normal 6.4-8.2 [facility] Comment on above: Performed By: #### L IPID, CMP, TSH #### [facility] [address] [place] [address] Dr. Edelmira Hirsch Sodium [Moles/Vol] 140 mmol/L Normal 136-145 [facility] Comment on above: Performed By: #### L IPID, CMP, TSH #### [facility] [address] [place] [address] Dr. Edelmira Hirsch Urea nitrogen [Mass/Vol] 14.0 mg/dL Normal 7.0-18.0 [facility] Comment on above: Performed By: #### L IPID, CMP, TSH #### [facility] [address] [place] [address] Dr. Edelmira Hirsch Urea nitrogen/Creatinine [Mass ratio] 16.3 mg/mg [facility] Comment on above: Performed By: #### L IPID, CMP, TSH #### [facility] [address] [place] [address] Dr. Edelmira Hirsch TSHon 11-01-2022 TSH 2.540 uIU/mL Normal 0.358-3.74 0 [facility] Comment on above: Performed By: #### L IPID, CMP, TSH #### [facility] [address] [place] [address] Dr. Edelmira Hirsch PAP ACOG PANEL 2: 30 to 65on 06-27-2022 . . Normal [facility] Comment on above: Result Comment: Perf ormed at: WB Performed By: #### 4 [id number] #### [facility] [address] [place] [address] Dr. Edelmira Hirsch Age Gdln ACOG Testing 31- [facility] Comment on above: Performed By: #### 4 [id number] #### [facility] [address] [place] [address] Dr. Edelmira Hirsch DIAGNOSIS: Comment [facility] Comment on above: Result Comment: NEGA TIVE FOR INTRAEPITHELIAL LESION OR MALIGNANCY. Performed at: WB Performed By: #### 4 [id number] #### [facility] [address] [place] [address] Dr. Edelmira Hirsch HPV Aptima Negative Normal Negative [facility] Comment on above: Result Comment: This nucleic acid amplification test detects fourteen high-risk HPV types (16,18,31,33,35,39,45,51,52,56,58,59,66,68) without differentiation. Performed at: =G Performed By: #### 4 [id number] #### [facility] [address] [place] [address] Dr. Edelmira Hirsch HPV Genotype Reflex Comment Normal [facility] Comment on above: Result Comment: Crit eria not met, HPV Genotype not performed. Performed at: WB Performed By: #### 4 [id number] #### [facility] [address] [place] [address] Dr. Edelmira Hirsch Methodology: Comment Normal [facility] Comment on above: Result Comment: This liquid based ThinPrep(R) pap test was screened with the use of an image guided system. Performed at: WB Performed By: #### 4 [id number] #### [facility] [address] [place] [address] Dr. Edelmira Hirsch Note: Comment Normal [facility] Comment on above: Result Comment: The Pap smear is a screening test designed to aid in the detection of premalignant and malignant conditions of the uterine cervix. It is not a diagnostic procedure and should not be used as the sole means of detecting cervical cancer. Both false-positive and false-negative reports do occur. . Performed at: WB Performed By: #### 4 [id number] #### [facility] [address] [place] [address] Dr. Edelmira Hirsch Performed by: Comment Normal [facility] Comment on above: Result Comment: Aury Andrade, Forestry Support Specialist (ASCP) Performed at: WB Performed By: #### 4 [id number] #### [facility] [address] [place] [address] Dr. Edelmira Hirsch Specimen adequacy: Comment Normal [facility] Comment on above: Result Comment: Sati sfactory for evaluation. Endocervical and/or squamous metaplastic cells (endocervical component) are present. Performed at: WB Performed By: #### 4 [id number] #### [facility] [address] [place], [place] [address] Dr. Edelmira Hirsch Nicotine and Metabolite, Harlan nt LCon 04-04-2021 Cotinine LC <1.0 Invalid Interpretation Code [facility] Comment on above: Result Comment: This test was developed and its performance characteristics determined by [facility]. It has not been cleared or approved by the Food and Drug Administration. Cotinine levels greater than 20.0 are consistent with the use of tobacco or tobacco cessation products. Performed At: [address] [id number] Speedy Rodriguez MD Ph:[phone] Performed By: #### 1 [id number], [id number], [id number], [id number], [id number], [id number] #### [facility] (DEFAULT) [address] [place] [address] Nicotine LC <1.0 Invalid Interpretation Code [facility] Comment on above: Result Comment: This test was developed and its performance characteristics determined by [facility]. It has not been cleared or approved by the Food and Drug Administration. Nicotine levels greater than 2.0 are consistent with the use of tobacco or tobacco cessation products. Performed By: #### 1 [id number], [id number], [id number], [id number], [id number], [id number] #### [facility] (DEFAULT) [address] [place] [address]10 .Auto Diff 1on 03-30-2021 [place] % 7 % Normal -12 [facility] Comment on above: Performed By: #### 1 [id number], [id number], [id number], [id number], [id number], 4336582 #### [facility] (DEFAULT) [address] [place] [address] Baso Abs# 0.0 x10 Normal 0.0-0.2 [facility] Comment on above: Performed By: #### 1 [id number], [id number], [id number], 2353041475, [id number], 6501439 #### [facility] (DEFAULT) [address] [place] [address]86 Basophils/100 WBC (Bld) 0.4 % Normal 0.2-2.0 [facility] Comment on above: Performed By: #### 1 [id number], [id number], [id number], [id number], 34699259, [id number] #### [facility] (DEFAULT) [address] [place] [address]43 Eos Abs# 1.0 x10 High 0.0-0.4 [facility] Comment on above: Performed By: #### 1 9257634, [id number], [id number], 7071263628, 40326573, 1255853 #### [facility] (DEFAULT) [address] [place] [address] Eosinophils/100 WBC (Bld) 13.5 % High 0.9-4.0 [facility] Comment on above: Performed By: #### 1 [id number], [id number], [id number], [id number], 15238176, 4899200 #### [facility] (DEFAULT) [address] [place] [address]00 Lymph Abs# 2.1 x10 Normal 1.3-2.9 [facility] Comment on above: Performed By: #### 1 8820503, [id number], [id number], 1386059408, 29847338, 4140599 #### [facility] (DEFAULT) [address] [place] [address] Lymphocytes/100 WBC (Bld) 29 % Normal 14-48 [facility] Comment on above: Performed By: #### 1 5768356, [id number], [id number], 8473856483, 98041151, 5886853 #### [facility] (DEFAULT) [address] [place] [address] Camp Abs# 0.5 x10 Normal 0.0-0.8 [facility] Comment on above: Performed By: #### 1 2353099, [id number], [id number], 9102595649, 88087094, 1327615 #### [facility] (DEFAULT) [address] [place] [address] Neut Abs# 3.5 x10 Normal 1.5-9.2 [facility] Comment on above: Performed By: #### 1 3039546, [id number], 1335276533, [id number], 42801428, 2086133 #### [facility] (DEFAULT) [address] [place] [address] Neutrophils/100 WBC (Bld) 50 % Normal 44-88 [facility] Comment on above: Performed By: #### 1 [id number], [id number], [id number], 1612638658, 05345403, 3005057 #### [facility] (DEFAULT) [address] [place] [address] CBC w/ Auto Diffon Erythrocyte distribution width (RBC) [Ratio] 13.2 % Normal 11.5-15.0 [facility] Comment on above: Performed By: #### 1 5181634, [id number], [id number], 1902311918, 11964143, 2274989 #### [facility] (DEFAULT) [address] [place] [address] Hematocrit (Bld) [Volume fraction] 38.4 % Normal 33.7-40.4 [facility] Comment on above: Performed By: #### 1 5539995, [id number], [id number], [id number], [id number], 9265232 #### [facility] (DEFAULT) [address] [place] [address] 83800 Hemoglobin (Bld) [Mass/Vol] 12.4 g/dL Normal 11.3-15.9 [facility] Comment on above: Performed By: #### 1 8051998, 9851658060, 1836104682, 5122335431, 37675110, 7793881 #### [facility] (DEFAULT) [address] [place] [address] Instr WBC 7.1 x10 Invalid Interpretation Code [facility] Comment on above: Performed By: #### 1 1195199, 9939209811, 5357372839, 0676903580, 45814798, 3250441 #### [facility] (DEFAULT) [address] [place] [address] Man Diff? Auto Normal [facility] Comment on above: Performed By: #### 1 1207326, 1763259069, 7221919853, 1637015700, 22705379, 3943540 #### [facility] (DEFAULT) [address] [place] [address] 47573 MCH (RBC) [Entitic mass] 30 pg Normal 24-34 [facility] Comment on above: Performed By: #### 1 6411219, 2266909528, 2391683724, 2990531692, 70206243, 1689354 #### [facility] (DEFAULT) [address] [place] [address] MCHC (RBC) [Mass/Vol] 32 g/dL Normal 26-37 [facility] Comment on above: Performed By: #### 1 8846349, 1086188858, 5535803845, 2849198435, 57462792, 8635685 #### [facility] (DEFAULT) [address] [place] [address] 25168 MCV (RBC) [Entitic vol] 94 fL Normal 81-100 [facility] Comment on above: Performed By: #### 1 3772475, 0811540267, 5516670228, 5483689497, 86055316, 6214917 #### [facility] (DEFAULT) [address] [place] [address] 11866 Platelet 265 x10 Normal 138-427 [facility] Comment on above: Performed By: #### 1 9949050, 5323709679, 6619434938, 9715153548, 48943493, 5579190 #### [facility] (DEFAULT) [address] [place] [address] 87958 Platelet mean volume (Bld) [Entitic vol] 10.3 fL High 6.3-10.2 [facility] Comment on above: Performed By: #### 1 8534996, 0958532876, 2043277881, 2314784581, 37073173, 2521964 #### [facility] (DEFAULT) [address] [place] [address] 15178 RBC 4.10 x10 Normal 3.70-5.30 [facility] Comment on above: Performed By: #### 1 9134821, 5254386845, 0084926352, 1416996609, 22019186, 9124434 #### [facility] (DEFAULT) [address] [place] [address] 46496 WBC 7.1 x10 Normal 3.5-10.5 [facility] Comment on above: Performed By: #### 1 5511492, 8288424292, 6297745504, 5771559940, 19978858, 6040336 #### [facility] (DEFAULT) [address] [place] [address] 23254 [facility] Standard 03-30-2021 eGFR Non AA >60 Invalid Interpretation Code [facility] Comment on above: Performed By: #### 1 4923640, 9273779347, 9920473509, 7297179494, 43056057, 2262435 #### [facility] (DEFAULT) [address] [place] [address] 04327 eGFR AA >60 Invalid Interpretation Code [facility] Comment on above: Result Comment: Towel Hemmer roddy Kidney disease could be indicated at eGFRs of less than 60 ml/min/1.73m2. Kidney Failure is indicated at less than 15 ml/min/1.73m2 Performed By: #### 1 6460775, 8957975794, 6921394606, 6410140643, 09253451, 4087262 #### [facility] (DEFAULT) [address] [place] [address] 42200 Albumin [Mass/Vol] 3.6 g/dL Normal 3.5-5.0 [facility] Comment on above: Performed By: #### 1 8645878, 8380631959, 7817005214, 6183116026, 42411791, 5800217 #### [facility] (DEFAULT) [address] [place] [address] 34552 Albumin/Globulin [Mass ratio] 1.1 {ratio} Low 1.4-2.6 [facility] Comment on above: Performed By: #### 1 5900776, 3387729751, 7686971568, 5362223399, 29443461, 1386341 #### [facility] (DEFAULT) [address] [place] [address] Alk Phos 61 IU/L Normal 32-91 [facility] Comment on above: Performed By: #### 1 1196062, 6363372206, 4753759192, 1625993196, 26233276, 9322901 #### [facility] (DEFAULT) [address] [place] [address] ALT [Catalytic activity/Vol] 14.0 U/L Normal 14.0-54.0 [facility] Comment on above: Performed By: #### 1 9051873, 4922452260, 8512639518, 5196582962, 56192602, 2900291 #### [facility] (DEFAULT) [address] [place] [address] Anion gap [Moles/Vol] 9.0 mmol/L Normal 5.0-19.0 [facility] Comment on above: Performed By: #### 1 2833058, 8795699940, 4204289340, 0263208674, 02433653, 4053923 #### [facility] (DEFAULT) [address] [place] [address] 27209 AST [Catalytic activity/Vol] 21 U/L Normal 15-41 [facility] Comment on above: Performed By: #### 1 4172885, 4837609112, 3544239278, 8709471685, 22075229, 0401819 #### [facility] (DEFAULT) [address] [place] [address] Bili Total 0.9 mg/dL Normal 0.3-1.2 [facility] Comment on above: Performed By: #### 1 5479578, 2536882048, 8331234596, 9161506762, 09228782, 6540632 #### [facility] (DEFAULT) [address] [place] [address] 54017 Calcium [Mass/Vol] 8.6 mg/dL Low 8.9-10.3 [facility] Comment on above: Performed By: #### 1 8151305, 0676483573, 6415734762, 5963167896, 72912531, 7128257 #### [facility] (DEFAULT) [address] [place] [address] 77880 Chloride [Moles/Vol] 103 mmol/L Normal 101-111 [facility] Comment on above: Performed By: #### 1 1880905, 8565466732, 1065455470, 2800968420, 62725823, 5680401 #### [facility] (DEFAULT) [address] [place] [address] 75009 CO2 [Moles/Vol] 27 mmol/L Normal 21-32 [facility] Comment on above: Performed By: #### 1 2976641, 4184710521, 9218483426, 3631084987, 71688001, 1578218 #### [facility] (DEFAULT) [address] [place] [address] 03243 Creatinine [Mass/Vol] 0.81 mg/dL Normal 0.60-1.30 [facility] Comment on above: Performed By: #### 1 0201671, 6643123424, 1474062431, 2987884446, 45599707, 5451977 #### [facility] (DEFAULT) [address] [place] [address] 73069 Globulin (S) [Mass/Vol] 3.4 g/dL Normal 1.5-4.3 [facility] Comment on above: Performed By: #### 1 0410643, 1388689060, 9108131858, 8786313974, 64798185, 4242033 #### [facility] (DEFAULT) [address] [place] [address] 21786 Glucose [Mass/Vol] 89.0 mg/dL Normal 74.0-118.0 [facility] Comment on above: Performed By: #### 1 1068806, 2254688512, 5206476472, 6200056882, 11676032, 3853743 #### [facility] (DEFAULT) [address] [place] [address] 45587 Osmolality 269 mOsm/L Invalid Interpretation Code [facility] Comment on above: Performed By: #### 1 6031609, 7187988703, 5849586386, 9640683208, 91128552, 9402079 #### [facility] (DEFAULT) [address] [place] [address] 20028 Potassium [Moles/Vol] 4.0 mmol/L Normal 3.6-5.1 [facility] Comment on above: Performed By: #### 1 6834403, 4799590188, 3574262130, 1366819004, 33833256, 9800213 #### [facility] (DEFAULT) [address] [place] [address] 88549 Protein [Mass/Vol] 7.0 g/dL Normal 6.5-8.1 [facility] Comment on above: Performed By: #### 1 9909308, 6792946380, 6194967459, 4181472142, 87424448, 2957845 #### [facility] (DEFAULT) [address] [place] [address] 11147 Sodium [Moles/Vol] 135.0 mmol/L Low 136.0-144 . 0 [facility] Comment on above: Performed By: #### 1 5135399, 6305111146, 7082307504, 1039484392, 08893478, 3260905 #### [facility] (DEFAULT) [address] [place] [address] 10257 Urea nitrogen [Mass/Vol] 12 mg/dL Normal 8-26 [facility] Comment on above: Performed By: #### 1 4356430, 2645267827, 0737431749, 7649581240, 74973298, 5989977 #### [facility] (DEFAULT) [address] [place] [address] 10587 Urea nitrogen/Creatinine [Mass ratio] 15.0 mg/mg Normal 4.6-16.2 [facility] Comment on above: Performed By: #### 1 2179246, 4915636206, 0533243867, 0855228436, 63046415, 4228471 #### [facility] (DEFAULT) [address] [place] [address] HgbA1c Standardon 03-30-2021 .Hb 14.4 Invalid Interpretation Code [facility] Comment on above: Performed By: #### 1 5406145, 4450342705, 7632260192, 1640797484, 38546213, 6678905 #### [facility] (DEFAULT) [address] [place] [address] .Hgb A1c 0.48 g/dL Invalid Interpretation Code [facility] Comment on above: Performed By: #### 1 9870804, 2485271172, 5717635368, 6174271161, 09514245, 3905503 #### [facility] (DEFAULT) [address] [place] [address] Glucose [Mass/Vol] 103 mg/dL Invalid Interpretation Code [facility] Comment on above: Performed By: #### 1 3809952, 7215781764, 9303847268, 3191443644, 90090526, 5522233 #### [facility] (DEFAULT) [address] [place] [address] HbA1c (Bld) [Mass fraction] 5.2 % Normal 4.6-6.2 [facility] Comment on above: Performed By: #### 1 6589504, 6868913208, 2694096816, 1173217666, 71062536, 3371379 #### [facility] (DEFAULT) [address] [place] [address] Lipid Panel Standardon 03-30 Cholesterol [Mass/Vol] 171.0 mg/dL Normal 66.0-200.0 [facility] Comment on above: Result Comment: Rosalind rable - Less than 200 mg/dL Borderline high risk - 200-239 mg/dL High risk - 240 mg/dL and over. Performed By: #### 1 3461371, 3618854991, 3220445557, 6269609341, 39666979, 5941781 #### [facility] (DEFAULT) [address] [place] [address] 92793 Cholesterol in HDL [Mass/Vol] 64 mg/dL Normal 40-71 [facility] Comment on above: Result Comment: High risk - <40 mg/dL. Performed By: #### 1 7250197, 3831482055, 8915942974, 7824520940, 87399581, 4340787 #### [facility] (DEFAULT) [address] [place] [address] 28867 Cholesterol in LDL [Mass/Vol] 93 mg/dL Normal 1-100 [facility] Comment on above: Result Comment: Opti mal - Less than 100 mg/dL Borderline high risk - 130-159 mg/dL High risk - 160-189 mg/dL. Performed By: #### 1 4853485, 6190370259, 4506654698, 0305368942, 69292337, 7268785 #### [facility] (DEFAULT) [address] [place] [address] 33718 Cholesterol.total/Shelley sterol in HDL [Mass ratio] 2.7 {ratio} Normal 0.0-4.5 [facility] Comment on above: Performed By: #### 1 8547393, 3181219049, 8835084459, 9252287773, 08370783, 6435045 #### [facility] (DEFAULT) [address] [place] [address] 38075 Triglyceride [Mass/Vol] 73.0 mg/dL Normal 0.0-150.0 [facility] Comment on above: Performed By: #### 1 7178099, 6120945780, 5512726502, 8704146504, 97558797, 6486773 #### [facility] (DEFAULT) [address] [place] [address] 68181 VLDL. 15 mg/dL Normal 5-40 [facility] Comment on above: Performed By: #### 1 0393336, 9744229361, 5104494555, 9817974354, 24668622, 5151552 #### [facility] (DEFAULT) [address] [place] [address] 41408 Nicotine and Metabolite, Harlan nt LCon 04-20-2020 Cotinine LC <1.0 Invalid Interpretation Code [facility] Comment on above: Result Comment: This test was developed and its performance characteristics determined by [facility]. It has not been cleared or approved by the Food and Drug Administration. Cotinine levels greater than 20.0 are consistent with the use of tobacco or tobacco cessation products. Performed At: [address] [id number] Speedy Rodriguez MD Ph:[phone] Performed By: #### 1 1121075, 2869241805, 6050309049, 4604864253, 65391015, 7183073 #### [facility] (DEFAULT) [address] [place] [address] Nicotine LC <1.0 Invalid Interpretation Code [facility] Comment on above: Result Comment: This test was developed and its performance characteristics determined by [facility]. It has not been cleared or approved by the Food and Drug Administration. Nicotine levels greater than 2.0 are consistent with the use of tobacco or tobacco cessation products. Performed By: #### 1 7290888, 6469565638, 0668837498, 2242548148, 41581499, 3031281 #### [facility] (DEFAULT) [address] [place] [address] 81390 .Auto Diff 04-10-2020 Auto Camp % 8 % Normal 1-12 [facility] Comment on above: Performed By: #### 7 913008, 86985273, 0718405559, 5495593181, 2480018850, 00409784 #### [facility] (DEFAULT) [address] [place] [address] 49604 Baso Abs# 0.0 x10 Normal 0.0-0.2 [facility] Comment on above: Performed By: #### 7 794102, 91376307, 6173931275, 4651444707, 6716961993, 77803345 #### [facility] (DEFAULT) [address] [place] [address] Basophils/100 WBC (Bld) 0.6 % Normal 0.2-2.0 [facility] Comment on above: Performed By: #### 7 147828, 91313388, 7779480382, 4375722386, 9633700559, 77339292 #### [facility] (DEFAULT) [address] [place] [address] 83361 Eos Abs# 0.7 x10 High 0.0-0.4 [facility] Comment on above: Performed By: #### 7 620683, 90947798, 1256457808, 6959209251, 4507537938, 42570225 #### [facility] (DEFAULT) [address] [place] [address] 00301 Eosinophils/100 WBC (Bld) 13.1 % High 0.9-4.0 [facility] Comment on above: Performed By: #### 7 456645, 45555506, 5941231222, 7667767049, 6363452423, 38014036 #### [facility] (DEFAULT) [address] [place] [address] 85643 Lymph Abs# 1.8 x10 Normal 1.3-2.9 [facility] Comment on above: Performed By: #### 7 576815, 66112558, 3188367324, 2388906509, 0736265324, 52055550 #### [facility] (DEFAULT) [address] [place] [address] 91748 Lymphocytes/100 WBC (Bld) 33 % Normal 14-48 [facility] Comment on above: Performed By: #### 7 124298, 99750449, 8780234868, 7488822465, 8376754751, 68526687 #### [facility] (DEFAULT) [address] [place] [address] 50386 Camp Abs# 0.4 x10 Normal 0.0-0.8 [facility] Comment on above: Performed By: #### 7 278893, 10844668, 8629586546, 9520530614, 1248709822, 55442439 #### [facility] (DEFAULT) [address] [place] [address] 20503 Neut Abs# 2.4 x10 Normal 1.5-9.2 [facility] Comment on above: Performed By: #### 7 551442, 65897369, 0986563920, 2041084415, 8531358377, 06300172 #### [facility] (DEFAULT) [address] [place] [address] Neutrophils/100 WBC (Bld) 45 % Normal 44-88 [facility] Comment on above: Performed By: #### 7 522335, 62529501, 5681942040, 4646642180, 9574767577, 59880430 #### [facility] (DEFAULT) [address] [place] [address] CBC w/ Auto Diffon 0 Erythrocyte distribution width (RBC) [Ratio] 13.4 % Normal 11.5-15.0 [facility] Comment on above: Performed By: #### 7 369309, 65516585, 3170557961, 5151166370, 7017991415, 70747876 #### [facility] (DEFAULT) [address] [place] [address] Hematocrit (Bld) [Volume fraction] 38.4 % Normal 33.7-40.4 [facility] Comment on above: Performed By: #### 7 189172, 20779635, 3802397125, 6289467035, 9769143594, 52191432 #### [facility] (DEFAULT) [address] [place] [address] Hemoglobin (Bld) [Mass/Vol] 12.6 g/dL Normal 11.3-15.9 [facility] Comment on above: Performed By: #### 7 867573, 58112056, 0577665398, 8945557655, 9416734560, 12211381 #### [facility] (DEFAULT) [address] [place] [address] Instr WBC 5.3 x10 Invalid Interpretation Code [facility] Comment on above: Performed By: #### 7 202728, 96130241, 3803557047, 3584903523, 5390828143, 46208511 #### [facility] (DEFAULT) [address] [place] [address] Man Diff? Auto Normal [facility] Comment on above: Performed By: #### 7 143417, 63834562, 0781896054, 3251011192, 8169419190, 23616021 #### [facility] (DEFAULT) [address] [place] [address] 59129 MCH (RBC) [Entitic mass] 29 pg Normal 24-34 [facility] Comment on above: Performed By: #### 7 526238, 63487184, 7476486619, 4355232116, 1296759580, 54266255 #### [facility] (DEFAULT) [address] [place] [address] 19967 MCHC (RBC) [Mass/Vol] 33 g/dL Normal 26-37 [facility] Comment on above: Performed By: #### 7 977713, 74966364, 6377578669, 5867065012, 6826491676, 96003705 #### [facility] (DEFAULT) [address] [place] [address] 02240 MCV (RBC) [Entitic vol] 89 fL Normal 81-100 [facility] Comment on above: Performed By: #### 7 001459, 34003049, 6729947155, 4111576132, 4240174171, 27311671 #### [facility] (DEFAULT) [address] [place] [address] Platelet 270 x10 Normal 138-427 [facility] Comment on above: Performed By: #### 7 613562, 85930687, 3886025567, 2494324151, 9491936236, 91922003 #### [facility] (DEFAULT) [address] [place] [address] 09177 Platelet mean volume (Bld) [Entitic vol] 10.1 fL Normal 6.3-10.2 [facility] Comment on above: Performed By: #### 7 136274, 15254099, 9229921116, 0879720155, 3523932503, 63066765 #### [facility] (DEFAULT) [address] [place] [address] RBC 4.32 x10 Normal 3.70-5.30 [facility] Comment on above: Performed By: #### 7 056786, 94663979, 2679775678, 4097531578, 4057061021, 56530160 #### [facility] (DEFAULT) [address] [place] [address] WBC 5.3 x10 Normal 3.5-10.5 [facility] Comment on above: Performed By: #### 7 731554, 98694469, 1592855474, 9882723597, 2442316845, 99156643 #### [facility] (DEFAULT) [address] [place] [address] Standardon 04-10-2020 eGFR Non AA >60 Invalid Interpretation Code [facility] Comment on above: Performed By: #### 7 868677, 52156259, 1705313027, 8003196937, 8815468939, 56359828 #### [facility] (DEFAULT) [address] [place] [address] eGFR AA >60 Invalid Interpretation Code [facility] Comment on above: Result Comment: Towel Hemmer roddy Kidney disease could be indicated at eGFRs of less than 60 ml/min/1.73m2. Kidney Failure is indicated at less than 15 ml/min/1.73m2 Performed By: #### 7 237971, 71875435, 7235608234, 5671420101, 1466224317, 17289464 #### [facility] (DEFAULT) [address] [place] [address] 68466 Albumin [Mass/Vol] 3.8 g/dL Normal 3.5-5.0 [facility] Comment on above: Performed By: #### 7 105958, 15070264, 0972002174, 2769911289, 8364104650, 55014721 #### [facility] (DEFAULT) [address] [place] [address] 56765 Albumin/Globulin [Mass ratio] 1.1 {ratio} Low 1.4-2.6 [facility] Comment on above: Performed By: #### 7 441900, 20688620, 5574431843, 0404873431, 5199815049, 57840288 #### [facility] (DEFAULT) [address] [place] [address] 56615 Alk Phos 40 IU/L Normal 32-91 [facility] Comment on above: Performed By: #### 7 524926, 39794929, 7416555515, 4320712492, 6879311302, 36477468 #### [facility] (DEFAULT) [address] [place] [address] ALT [Catalytic activity/Vol] 13.0 U/L Low 14.0-54.0 [facility] Comment on above: Performed By: #### 7 426661, 83029043, 2815760987, 9448038962, 0705070040, 68706337 #### [facility] (DEFAULT) [address] [place] [address] Anion gap [Moles/Vol] 11.0 mmol/L Normal 5.0-19.0 [facility] Comment on above: Performed By: #### 7 181745, 13765360, 2646366699, 2094282035, 5299951870, 59265836 #### [facility] (DEFAULT) [address] [place] [address] AST [Catalytic activity/Vol] 19 U/L Normal 15-41 [facility] Comment on above: Performed By: #### 7 089243, 63477410, 9169447972, 2394364789, 3417979887, 34254787 #### [facility] (DEFAULT) [address] [place] [address] Bili Total 1.1 mg/dL Normal 0.3-1.2 [facility] Comment on above: Performed By: #### 7 638875, 61065515, 4168798532, 9115363194, 9023680820, 02885455 #### [facility] (DEFAULT) [address] [place] [address] Calcium [Mass/Vol] 9.1 mg/dL Normal 8.9-10.3 [facility] Comment on above: Performed By: #### 7 711017, 61594709, 7174064181, 6932863560, 2267736416, 02344744 #### [facility] (DEFAULT) [address] [place] [address] Chloride [Moles/Vol] 107 mmol/L Normal 101-111 [facility] Comment on above: Performed By: #### 7 407983, 49596101, 2534268394, 8982660589, 9570241401, 47294159 #### [facility] (DEFAULT) [address] [place] [address] 52343 CO2 [Moles/Vol] 23 mmol/L Normal 21-32 [facility] Comment on above: Performed By: #### 7 780728, 40084984, 5711066805, 4585301969, 5514444350, 14151756 #### [facility] (DEFAULT) [address] [place] [address] 47719 Creatinine [Mass/Vol] 0.75 mg/dL Normal 0.60-1.30 [facility] Comment on above: Performed By: #### 7 231509, 04199047, 7452285518, 1955389101, 3890817583, 53134106 #### [facility] (DEFAULT) [address] [place] [address] 08805 Globulin (S) [Mass/Vol] 3.4 g/dL Normal 1.5-4.3 [facility] Comment on above: Performed By: #### 7 439256, 00606890, 2778595342, 5822544415, 6377590657, 57696005 #### [facility] (DEFAULT) [address] [place] [address] 12500 Glucose [Mass/Vol] 98.0 mg/dL Normal 74.0-118.0 [facility] Comment on above: Performed By: #### 7 973608, 44835748, 6149570336, 6551331810, 8347712316, 33951776 #### [facility] (DEFAULT) [address] [place] [address] 04523 Osmolality 276 mOsm/L Invalid Interpretation Code [facility] Comment on above: Performed By: #### 7 822366, 18050390, 0191151515, 9496736986, 6882633695, 04911005 #### [facility] (DEFAULT) [address] [place] [address] 69814 Potassium [Moles/Vol] 4.0 mmol/L Normal 3.6-5.1 [facility] Comment on above: Performed By: #### 7 985257, 79153553, 4415383532, 9942559900, 2829268212, 77362970 #### [facility] (DEFAULT) [address] [place] [address] 88249 Protein [Mass/Vol] 7.2 g/dL Normal 6.5-8.1 [facility] Comment on above: Performed By: #### 7 306678, 52250648, 0109088067, 0276994707, 2096302842, 39558883 #### [facility] (DEFAULT) [address] [place] [place] [address] 39099 Sodium [Moles/Vol] 137.0 mmol/L Normal 136.0-144 . 0 [facility] Comment on above: Performed By: #### 7 [id number], [id number], [id number], [id number], [id number], [id number] #### [facility] (DEFAULT) [address] [place] [address] 97626 Urea nitrogen [Mass/Vol] 20 mg/dL Normal 8-26 [facility] Comment on above: Performed By: #### 7 [id number], [id number], [id number], [id number], [id number] #### [facility] (DEFAULT) [address] [place] [address] 19002 Urea nitrogen/Creatinine [Mass ratio] 27.0 mg/mg High 4.6-16.2 [facility] Comment on above: Performed By: #### 7 [id number], [id number], [id number], [id number], [id number] #### [facility] (DEFAULT) [address] [place] [address] 33220 HgbA1c Standardon 04-10-2020 .Hb 14.7 Invalid Interpretation Code [facility] Comment on above: Performed By: #### 1 [id number], [id number], [id number], [id number], [id number], [id number] #### [facility] (DEFAULT) [address] [place] [address] 61962 .Hgb A1c 0.51 g/dL Invalid Interpretation Code [facility] Comment on above: Performed By: #### 1 [id number], [id number], [id number], [id number], [id number], [id number] #### [facility] (DEFAULT) [address] [place] [address] 35273 Glucose [Mass/Vol] 106 mg/dL Invalid Interpretation Code [facility] Comment on above: Performed By: #### 1 [id number], [id number], [id number], [id number], [id number], [id number] #### [facility] (DEFAULT) [address] [place] [address] 86050 HbA1c (Bld) [Mass fraction] 5.3 % Normal 4.6-6.2 [facility] Comment on above: Performed By: #### 1 [id number], [id number], [id number], [id number], [id number], [id number] #### [facility] (DEFAULT) [address] [place] [address] 21272 Lipid Panel Standardon 04-10 Cholesterol [Mass/Vol] 162.0 mg/dL Normal 66.0-200.0 [facility] Comment on above: Result Comment: Rosalind rable - Less than 200 mg/dL Borderline high risk - 200-239 mg/dL High risk - 240 mg/dL and over. Performed By: #### 7 [id number], [id number], [id number], [id number], [id number], [id number] #### [facility] (DEFAULT) [address] [place] [address] 65782 Cholesterol in HDL [Mass/Vol] 64 mg/dL Normal 40-71 [facility] Comment on above: Result Comment: High risk - <40 mg/dL. Performed By: #### 7 [id number], [id number], [id number], [id number], [id number], [id number] #### [facility] (DEFAULT) [address] [place] [address] 73760 Cholesterol in LDL [Mass/Vol] 90 mg/dL Normal 1-100 [facility] Comment on above: Result Comment: Opti mal - Less than 100 mg/dL Borderline high risk - 130-159 mg/dL High risk - 160-189 mg/dL. Performed By: #### 7 [id number], [id number], [id number], [id number], [id number], [id number] #### [facility] (DEFAULT) [address] [place] [address] 84926 Cholesterol.total/Shelley sterol in HDL [Mass ratio] 2.5 {ratio} Normal 0.0-4.5 [facility] Comment on above: Performed By: #### 7 [id number], [id number], [id number], [id number], [id number], [id number] #### [facility] (DEFAULT) [address] [place] [address] 84547 Triglyceride [Mass/Vol] 38.0 mg/dL Normal 0.0-150.0 [facility] Comment on above: Performed By: #### 7 [id number], [id number], [id number], [id number], [id number], [id number] #### [facility] (DEFAULT) [address] [place] [address] 59367 VLDL. 8 mg/dL Normal 5-40 [facility] Comment on above: Performed By: #### 7 [id number], [id number], [id number], [id number], [id number], [id number] #### [facility] (DEFAULT) [address] [place] [address] 15977 Vital Signs Date Time Vital Sign Value Performing Clinician Facility 07-10-2024 14:58-0500 Body mass index (BMI) [Ratio] 22.34 kg/m2 [employer] Work Phone: [facility] 07-10-2024 14:58-0500 Body weight 59.02 kg [employer] Work Phone: [facility] 07-10-2024 14:58-0500 Diastolic blood pressure 74 mm[Hg] Triston Marcus DO Work Phone: [facility] 07-10-2024 14:58-0500 Systolic blood pressure 116 mm[Hg] Triston Velazquez DO Work Phone: [facility] 05-06-2024 14:43-0500 Body height 162.56 cm Tess Leahy MD Work Phone: [facility] 05-06-2024 14:43-0500 Body mass index (BMI) [Ratio] 22.5 kg/m2 Tess Leahy MD Work Phone: [facility] 05-06-2024 14:43-0500 Body weight 59.59 kg Tess Leahy MD Work Phone: [facility] 05-06-2024 14:43-0500 Diastolic blood pressure 79 mm[Hg] Tess Leahy MD Work Phone: [facility] 05-06-2024 14:43-0500 Heart rate 55 /min Tess Leahy MD Work Phone: [facility] 05-06-2024 14:43-0500 Systolic blood pressure 121 mm[Hg] Tess Leahy MD Work Phone: [facility] 11-20-2023 15:46-0400 Body height 162.56 cm MD Alis Beth Work Phone: [facility] 11-20-2023 15:46-0400 Body mass index (BMI) [Ratio] 22.7 kg/m2 MD Alis Beth Work Phone: [facility] 11-20-2023 15:46-0400 Body weight 60.04 kg MD Alis Beth Work Phone: [facility] 11-20-2023 15:46-0400 Diastolic blood pressure 72 mm[Hg] MD Alis Beth Work Phone: [facility] 11-20-2023 15:46-0400 Heart rate 54 /min MD Alis Beth Work Phone: [facility] 11-20-2023 15:46-0400 Systolic blood pressure 116 mm[Hg] MD Alis Beth Work Phone: [facility] 08-30-2023 14:03-0400 Blood Pressure Location [facility] 08-30-2023 14:03-0400 Diastolic blood pressure 78 mm[Hg] [facility]up [facility] 08-30-2023 14:03-0400 Heart rate 72 /min Anup [facility] 08-30-2023 14:03-0400 Respiratory rate 16 /min Anup [facility] 08-30-2023 14:03-0400 Systolic blood pressure 116 mm[Hg] Anup [facility]CANTAR[facility] Encounters Encounter Date Encounter Type Care Provider Facility Start: 09-24-2024 End: 09-24-2024 ambulatory Anup Frias PRESTON Facility:[facility] Start: 07-10-2024 End: 07-10-2024 Patient encounter procedure Triston Marcus DO Work Phone: [facility] Work Phone: Start: 07-10-2024 End: 07-10-2024 flow sheet Triston Marcus DO Work Phone: [facility] Comment on above: Well woman exam with routine gynecological exam; Breast cancer screening by mammogram; Hot flashes Start: 07-10-2024 End: 07-10-2024 ambulatory TRISTON MARCUS Not Available Start: 07-10-2024 End: 07-10-2024 Bamboo flowsheet Triston Marcus DO Work Phone: [facility] Start: 07-10-2024 End: 07-16-2024 Bamboo flowsheet Triston Marcus DO Work Phone: [facility] Start: 07-10-2024 End: 07-16-2024 Clinisync Result Encounter Triston Velazquez DO Work Phone: [facility] Unsolicited Start: 05-06-2024 End: 05-06-2024 ambulatory Tess Leahy MD Work Phone: [facility] Work Phone: Start: 05-06-2024 End: 05-06-2024 Patient encounter procedure Tess Leahy MD Work Phone: [facility] Work Phone: Start: 02-14-2024 End: 02-14-2024 ambulatory MD Tess Leahy Work Phone: [facility] Work Phone: Start: 02-14-2024 End: 02-14-2024 Departed Referred MD Tess Leahy Work Phone: [facility] Start: 02-14-2024 Non-patient / Non-visit Tess Leahy MD Work Phone: [facility] Work Phone: Start: 02-14-2024 End: 02-14-2024 ambulatory Anup PEARL Facility:[id number] Start: 01-30-2024 End: 01-30-2024 ambulatory GUILHERME ROMO Not Available Start: 11-20-2023 Patient encounter status MD Jeremy Beth Work Phone: [facility] Start: 11-20-2023 End: 11-20-2023 ambulatory MD Alis Beth Work Phone: [facility] Work Phone: Start: 11-20-2023 End: 11-20-2023 Encounter for general adult medical examination without abnormal findings MD Alis Beth Work Phone: [facility] Start: 11-20-2023 End: 11-20-2023 Patient encounter procedure MD Alis Beth Work Phone: [facility] Work Phone: Start: 11-14-2023 Non-patient / Non-visit MD Alis Beth Work Phone: [facility] Work Phone: Start: 11-07-2023 Non-patient / Non-visit MD Alis Beth Work Phone: [facility] Work Phone: Start: 10-11-2023 End: 10-11-2023 ambulatory MD Alis Beth Work Phone: [facility] Work Phone: Start: 10-11-2023 End: 10-11-2023 Departed Referred MD Alis Beth Work Phone: [facility] Start: 10-11-2023 Non-patient / Non-visit MD Alis Beth Work Phone: [facility] Work Phone: Start: 10-11-2023 End: 10-11-2023 ambulatory Anup PEARL Facility:[id number] Start: 08-30-2023 End: 08-30-2023 Patient encounter procedure Anup PEARL [facility] Start: 11-11-2022 End: 11-12-[address] STEVE DAS . Facility:[facility] Start: 11-05-2022 Encounter for genera l adult medical examination without abnormal findings DR TESS LEAHY [facility] Start: 11-01-2022 End: 11-02-[address] TESS LEAHY Facility:[facility] Start: 11-01-2022 End: 11-02-2022 Encounter for general adult medical examination without abnormal findings DR TESS LEAHY Facility:[facility] Start: 06-23-2022 End: 06-23-[address] STEVE DAS . Facility: Procedures Date Procedure Procedure Detail Performing Clinician Start: 07-10-2024 IGP,APTIMA HPV,AGE GDLN Triston Marcus DO Work Phone: Start: 11-23-2023 Mammography Triston Marcus DO Work Phone: Start: 06-26-2023 Microscopic observation [Identifier] in Cervix by Cyto stain Triston Marcus DO Work Phone: Start: 11-02-2016 Colonoscopy Triston Marcus DO Work Phone: Start: 11-02-2016 Colonoscopy Anup NILL Start: 11-02-2016 Esophagogastroduodenoscopy Anup NILL Start: 01-19-2011 Colonoscopy Anup NILL Start: 01-19-2011 Esophagogastroduodenoscopy Anup NILL section Anup NIL L Cholecystectomy Anup NILL Excision of ganglion of foot Anup NILL Plan of Treatment Date Care Activity Detail Author Start: 11-02-2026 Screening for malignant neoplasm of colon [facility] Start: 06-26-2026 Screening for malignant neoplasm of cervix [facility] Start: 07-14-2025 End: 07-14-2025 Patient encounter procedure 07/14/2025 2:40 PM EST Office Visit [facility] [address] [place] [address] Triston Velazquez, DO [address] [place] [address] [facility] Start: 11-22-2024 Screening for malignant neoplasm of breast Mammogram [facility] Start: 07-10-2024 End: 07-10-2024 Patient encounter procedure 07/10/2024 2:40 PM EST Office Visit [facility] [address] [place] [address] Triston Velazquez, DO [address] [place] [address] Arrived [facility] Comment on above: Arrived Start: 07-10-2024 End: 09-07-2025 MG Breast - bilateral Screening Bilateral screening mammogram Imaging Routine Breast cancer screening by mammogram Expected: 07/10/2024, Expires: 09/07/2025 [facility] Work Phone: Comment on above: Expected: 07/10/2024 , Expires: 09/07/2025 Start: 02-18-2024 Influenza vaccination Influenza Vacc ine (#1) [facility] Start: 10-28-2001 Screening for malignant neoplasm of cervix HPV/Cotest [facility] Start: 1970 Screening for malignant neoplasm of colon [facility] MR Brain WO contrast [facility] THIN PREP TIS PAP AN D HR HPV DNA THIN PREP TIS PAP AND HR HPV DNA Pathology and Cytology Routine Well woman exam with routine gynecological exam Ordered: 07/10/2024 [facility] Comment on above: Ordered: 07/10/2024 Immunizations Immunization Date Immunization Notes Care Provider Kat delgado 04-19-2024 influenza virus vaccine, unspecified formulation Triston Velazquez DO Work Phone: [facility] 03-19-2023 influenza virus vaccine, unspecified formulation Anup PEARL [facility] 05-05-2021 SARS-CoV-2 (COVID-19 ) Ad26 vaccine, recombinant Anup PEARL [facility] [place] Comment on above: Result Comment: 2023: [id number] Payers Date Payer Category Payer Self-pay 2022 [facility] [employer] [id number] 2022 Unknown [id number] 1971 Unknown [id number] 1971 Unknown [id number] 1971 Unknown [id number] 1971 Unknown [id number] 1971 Unknown [id number] 1971 Unknown [id number] 1971 Unknown [id number] 1971 Unknown [id number] Unknown [facility] Access [id number] Unknown [id number] Unknown [id number] Social History Date Type Detail Facility Start: 08-30-2023 End: 11-20-2023 Tobacco smoking status Ex-smoker (finding) [facility] smoking status Never [facility] Start: 05-31-2023 End: 07-10-2024 Sex Assigned At Female [facility] Start: 1970 Sex Assigned At Female F [facility] Start: 05-06-2024 Sex Female (finding) [facility] Start: 05-31-2023 Tobacco smoking stat us NHIS Never smoked tobacco [facility] Start: 06-26-2023 End: 07-10-2024 Alcoholic beverage intake Current drinker of alcohol (finding) [facility] Start: 05-31-2023 End: 07-10-2024 History of Social function [facility] Start: 05-31-2023 Alcohol Comment Occasional alcohol u se [facility] Start: 1970 Sex assigned at Not on file [facility] Functional Status Date Assessment Result Facility 08-30-2023 Functional Status N/A [facility] [place] Clinical Note 09-24-2024 Note Date & Type Note Facility 09-24-2024 Note General Surgery Offi ce/Clinic Note Chief Complaint consultation for epigastric pain and bowel changes HPI Staff 53 year old female presents on self referral consultation for abdominal pain, bloating and constipation. Last colonoscopy completed 2016 with diverticulosis. History of Present Illness 53 yo female with h/o hypothyroidism, chronic GERD, h/o prepyloric ulcer, presents with postprandial bloating, intermittent epigastric pain, change in bowel habits with frequent constipation; patient had acute recurrent prepyloric ulcer 1 year ago, follow up EGD 01/2024 with healing, but still small residual ulcer and pyloric spasm; patient on Protonix bid and Carafate tid for last year; reports several month h/o bowel changes; hard bms every 4 days, followed by 1-2 days of loose stools, some rectal bleeding with hard bms; some abd cramping with constipation; no medication or dietary changes; drinks lots of water; last colonoscopy 2016 with diverticulosis, no polyps; abd operations significant for x 2 and cholecystectomy; no asa or NSAID use; no tobacco use. Review of Systems PHQ Score Initial Depression [...] no wheezing. Gastrointestinal: no nausea, no vomiting, yes diarrhea, yes constipation, no blood in stool, yes change in bowel habits, yes abdominal pain, no hepatitis. Genitourinary: no kidney [...] been reviewed and are negative or noncontributory. Physical Exam Vitals & Measurements HR: 68(Peripheral) RR: 16 BP: 102/70 HT: 163 cm HT: 64 in WT: 60.4 kg WT: 133.159 lb BMI: 22.73 HEENT: normal conjunctiva, sclera clear, no scleral icterus, EOM intact, PERRLA, oral mucosa moist without lesions. Neck: trachea midline, no mass, symmetric, no thyromegaly or nodules, no adenopathy Respiratory: lungs CTA, respirations non labored. Cardiovascular: regular rate and rhythm, no murmur, no pedal edema or varicosities. Gastrointestinal: soft, non distended, mild tenderness, epigastrium no masses, no palpable hernias, diastasis recti no, no hepatosplenomegaly; normal bs Lymphatic: no cervical adenopathy, no supraclavicular adenopathy. Musculoskeletal: normal gait, digits and nails without infection, nodes, cyanosis, clubbing. Skin: no rashes, no lesions, no ulcers, no subcutaneous nodules, induration. Psychiatric/Neuro: oriented to time, place, person, judgement normal, affect appropriate for age, insight intact, no focal deficits. Tests: , review of old records completed , Discussed surgical options, risks, and possible complications with patient. Assessment/Plan 1. Change in bowel habits (R19.4: Change in bowel habit) plan EGD and colonoscopy under anesthesia, informed consent obtained. 2. Chronic GERD (K21.9: Gastro-esophageal reflux disease without esophagitis) see # 1 3. Epigastric pain (R10.13: Epigastric pain) see # 1 4. History of gastric ulcer (Z87.11: Personal history of peptic ulcer disease) see # 1 5. Diverticulosis (K57.90: Diverticulosis of intestine, part unspecified, without perforation or abscess without bleeding) see # 1 Follow-up No qualifying data available Problem List/Past Medical History Ongoing Change in bowel habits Chronic GERD Diverticulosis Epigastric pain History of gastric ulcer History of gastritis Hypothyroidism Historical No qualifying data Procedure/Surgical History EGD - esophagogastroduodenoscopy (02/14/2024), Colonoscopy (11/02/2016), EGD - esophagogastroduodenoscopy (11/02/2016), Colonoscopy (01/19/2011), EGD - esophagogastroduodenoscopy (01/19/2011), section, section, Cholecystectomy, Excision of ganglion cyst of foot. Medications Carafate 1 gram Tab, 1 gm= 1 tab(s), Oral, QIDACHS Multi Vitamins oral tablet, 1 tab(s), Oral, Daily Protonix 40 mg Tab-DR, 40 mg= 1 tab(s), Oral, Daily, 4 refills Synthroid 88 mcg Tab, 88 mcg= 1 tab(s), Oral, Daily Allergies No Known Allergies No Known Medication Allergies Social History Alcohol - Denies Alcohol Use, 08/30/2023 Substance Abuse - Denies Substance Abuse, 08/30/2023 Tobac (more content not included)... [facility] Comment on above: Result Comment: Elec tronically Signed By: PRESTON ROSALES, Anup Ernst\Date and Time Signed: 09/24/24 13:34 EDT History of Present illness Narrative 07-10-2024 Naty Graham LPN - 07/10/2024 2:40 PM EST Note Date & Type Note Facility 07-10-2024 History of Presen t illness Narrative Reason for Appointment: Patient ID: Ioana Marie is a 53 y.o. female who presents for Well Women Visit Patient presents today for Annual Exam. MEDICATIONS Current Outpatient Medications Medication Instructions levothyroxine (Synthroid, Levoxyl) 88 MCG tablet TAKE ONE TABLET BY MOUTH IN THE MORNING ON AN EMPTY STOMACH ONCE DAILY pantoprazole (ProtoNix) 40 MG EC tablet TAKE 1 TABLET BY MOUTH IN THE MORNING AND 1 TABLET AT BEDTIME sucralfate (Carafate) 1 g tablet Oral, 4 times daily before meals and nightly ALLERGIES No Known Allergies PROBLEMS Active Ambulatory Problems Diagnosis Date Noted No Active Ambulatory Problems Resolved Ambulatory Problems Diagnosis Date Noted No Resolved Ambulatory Problems Past Medical History: Diagnosis Date BMI 22.0-22.9, adult Breast nodule Encounter for gynecological examination (general) (routine) without abnormal findings Ganglion of left ankle and foot Flores's thyroiditis (CMS/HCC) Hypothyroidism (CMS/HCC) Intramural leiomyoma of uterus Left ovarian cyst Paroxysmal tachycardia (CMS/HCC) HISTORY PAST MEDICAL HISTORY SOCIAL HISTORY Past Medical History: Diagnosis Date BMI 22.0-22.9, adult Breast nodule Encounter for gynecological examination (general) (routine) without abnormal findings Ganglion of left ankle and foot Flores's thyroiditis (CMS/HCC) Hypothyroidism (CMS/HCC) Intramural leiomyoma of uterus Left ovarian cyst Paroxysmal tachycardia (CMS/HCC) Social History Tobacco Use Smoking status: Never Smokeless tobacco: Not on file Substance Use Topics Alcohol use: Yes Comment: Occasional alcohol use Drug use: Never FAMILY HISTORY Family History Problem Relation Name Age of Onset Breast cancer Mother Colon cancer Maternal Grandmother Breast cancer Paternal Grandmother SURGICAL HISTORY Past Surgical History: Procedure Laterality Date CHOLECYSTECTOMY COLONOSCOPY 08/2016 EGD 08/2016 TUBAL LIGATION REVIEW OF SYSTEMS Review of Systems: Review of Systems Constitutional: Negative. HENT: Negative. Eyes: Negative. Respiratory: Negative. Cardiovascular: Negative. Gastrointestinal: Negative. Genitourinary: Negative. Musculoskeletal: Negative. Skin: Negative. Neurological: Negative. All other systems reviewed and are negative. Hematological: Negative. Endocrine: Negative. Allergic/Immunologic: Negative. OBJECTIVE Objective: Physical Exam Constitutional: Appearance: Normal appearance. She is well-developed. Genitourinary: Vulva normal. Cardiovascular: Rate and Rhythm: Normal rate and regular rhythm. Pulmonary: Effort: Pulmonary effort is normal. Breath sounds: Normal breath sounds. Abdominal: General: Bowel sounds are normal. There is no distension. Palpations: Abdomen is soft. Tenderness: There is no abdominal tenderness. There is no guarding or rebound. Musculoskeletal: General: No swelling. Normal range of motion. Right lower leg: No edema. Left lower leg: No edema. Neurological: Mental Status: She is alert and oriented to person, place, and time. Skin: General: Skin is warm and dry. Psychiatric: Mood and Affect: Mood normal. Behavior: Behavior normal. Vitals and nursing note reviewed. Exam conducted with a venipuncturist present. Vitals: Estimated body mass index is 22.34 kg/m as calculated from the following: Height as of 06/22/22: 5' 4 . Weight as of this encounter: 130 lb 1.9 oz. BP: 116/74 No LMP recorded. ASSESSMENT & PLAN ICD-10-CM 1. Well woman exam with routine gynecological exam Z01.419 THIN PREP TIS PAP AND HR HPV DNA 2. Breast cancer screening by mammogram Z12.31 Bilateral screening mammogram Bilateral screening mammogram Annual: Patient presents today for an annual exam. Patient states she is doing well and has complaints of hot flashes- rx for premarin 0.3 oral tab. Pap was obtained without difficulty and patient given mammogram order to have scheduled/obtained. Orders Placed This Encounter Procedures Bilateral screening mammogram Follow Up: Patient is to return in one year for annual unless needed otherwise. Documented by Naty Graham LPN on behalf of: Triston Velazquez DO documented in this encounter [facility] Evaluation note 02-14-2013 Note Date & Type Note Facility 02-14-2013 Evaluation note Diagnosis Onset Date Hypothyroidism, unspecified February 14, 2013 acute Wellness examination acute [facility] Work Phone: Evaluation + Plan note Note Date & Type Note Facility Evaluation + Plan note No data available for this section [facility] Evaluation note Note Date & Type Note Facility Evaluation note No assessment information availa [facility] Work Phone: Evaluation note Note Date & Type Note Facility Evaluation note Diagnosis Onset Date Resolution Concern about memory acute Nove mber 2023 2:28pm Headache acute May 06, 2024 2:28pm [facility] Work Phone: Evaluation note Note Date & Type Note Facility Evaluation note Diagnosis Well woman exam with routine gynecological exam Routine gynecological examination Breast cancer screening by mammogram Hot flashes documented in this encounter [facility] Discharge instructions Note Date & Type Note Facility Hospital Discharge instructions No data available for this section [facility] Progress note Note Date & Type Note Facility Progress note No data available for this section General [facility] Summary Purpose Family History No Family History Records FoundNo Family History Records Found No data available for this section No Family History Records FoundNo Family History Records FoundNo Family History Records Found Advance Directives No Advanced Directives Records Found Advance Directive Response Recorded Date/ Time Advance [...] CREATED AUTHOR AUTHOR'S ORGANIZ ATION 11/25/2022 [facility] DATE CREATED AUTHOR AUTHOR'S ORGANIZ ATION 02/25/[address] [facility] DATE CREATED AUTHOR AUTHOR'S ORGANIZ ATION 07/12/2024 [facility] EPIC DATE CREATED AUTHOR AUTHOR'S ORGANIZ ATION 09/25/2024 [facility] Patient Care team informatio n [...] End: February 14, 2024 Anup Pearl MD [facility] Attending Provider Active Start: February 14, 2024 End: February 14, 2024 Team Status: Inactive Member Role Status Dates Tess Leahy MD Primary Care Provide r, Attending Provider Active Start: May 06, 2024 End: May 06, 2024 Team Status: Inactive Member Role Status Dates Tess Leahy MD Primary Care Provide r, Attending Provider Active Start: November 20, 2023 End: November 20, 2023 Team Status: Active Member Role Status Dates Alis Beth MD Primary Care Provider Active Team Status: Active Member Role Status Dates Alis Beth MD Primary Care Provider Active S tart: October 11, 2023 Tess Leahy MD Attending Provider Active St art: October 11, 2023 Team Status: Inactive Member Role Status Dates Alis Beth MD Primary Care Provider Active S tart: October 11, 2023 End: October 11, 2023 Anup Pearl MD [facility] Attending Provider Active Start: October 11, 2023 End: October 11, 2023 Team Status: Active Member Role Status Dates Alis Beth MD Primary Care Provider Active S tart: November 07, [address] Attending Provider Active Start : November 07, 2023 Team Status: Active Member Role Status Dates Tess Leahy MD Primary Care Provide r, Attending Provider Active Start: November 14, 2023 Project Assistant Relationship Specialty Start Date End Date Tess Leahy MD [address] [place] [phone] PCP - General Family Medicine 06/26/23 Project Assistant Relationship Specialty Start Date End Date Tess Leahy MD [address] [place] [address] PCP - General Family Medicine 06/26/23 Project Assistant Relationship Specialty Start Date End Date Tess Leahy MD [address] [place] [phone] PCP - General Family Medicine 06/26/23 Goals (unrecognized section and content) Goals may be documented in a n alternate section Reason for Visit (unrecogniz ed section and content) Reason Comments Well Women Visit FOR RECORDS PERTAINING TO PATIENTS WHO ARE [...] BE BASED ON THE PRIMARY CLINICAL RECORDS. [facility]. provides no warranty or guarantee of the accuracy or completeness of information in this document.
[2024-10-02 07:00] VITALS: BP 126/64; PULSE 71; TEMP 36.3; O2SAT 99; BMI 21.9
[2024-10-02] MEDS: 0.9 % SODIUM CHLORIDE 500 ML 50 ML IV (07:20)
[2024-10-02 07:32] LABS: Internal Control Within Normal Limits
[2024-10-02 08:21] LABS: HCG Qualitative NEGATIVE (NEGATIVE)
[2024-10-02] MEDS: 0.9 % SODIUM CHLORIDE 1,000 ML 75 ML IV (08:23)
[2024-10-02 08:40] VITALS: BP 119/64; PULSE 67; TEMP 36.7
[2024-10-02 08:53] VITALS: BP 99/51; PULSE 69; O2SAT 100
[2024-10-02 09:11] VITALS: BP 105/59; PULSE 63; O2SAT 100
== END 2024-10-02 09:26 | disposition home or self-care (01) ==
PROVIDERS: Anesthesiology; PCP Family Medicine; Visit Provider Surgery
PROC: (CPT 813; principal; 2024-10-02 08:00)
DX: R19.4 Change in bowel habit (principal); R10.13 Epigastric pain; K44.9 Diaphragmatic hernia without obstruction or gangrene; K57.30 Diverticulosis of large intestine without perforation or abscess without bleeding; K25.9 Gastric ulcer, unspecified as acute or chronic, without hemorrhage or perforation; E03.9 Hypothyroidism, unspecified; Z90.49 Acquired absence of other specified parts of digestive tract; Z87.891 Personal history of nicotine dependence
CPT/HCPCS: 43239; 45378; 36415; 84703; J2371; J2704

== ENCOUNTER 2024-10-21 12:23 | Outpatient (OUT) | payer BC, SELFPAY ==
--- NOTE | 2024-10-21 13:10 | CT_ITS ---
The [address] [address] Patient Name: ANATOLIY STUART MRN: [id number] date: 1970 Sex: F Assigned Patient Location: CT Current Patient Location: CT Accession/Order Number: [id number] Exam Date: 10/21/2024 13:50 Report Date: 10/21/2024 13:53 At the request of: ARCHANA JOHNSTON MD Procedure: CT abdomen w con CT ABDOMEN WITH INTRAVENOUS CONTRAST: CLINICAL HISTORY: Epigastric Pain, Acute Gastric Ulcer COMPARISON: Follow-up gastric cancer. TECHNIQUE: Spiral images were obtained through the abdomen following the administration of intravenous contrast. This CT exam was performed using one or more following dose reduction techniques: Automated exposure control, adjustment of the mA and/or kV according to patient size, or use of iterative reconstruction technique. FINDINGS: Lung Bases: Mild lung scarring. Organs: Hepatic steatosis. Subcentimeter low attenuating lesion left lobe of the liver too small for accurate characterization. Gallbladder has been removed. Spleen pancreas adrenal glands and aorta all appear unremarkable. GI: There appears to be thickening involving the antrum of the stomach. There are a few mildly prominent adjacent lymph nodes. Visualized small bowel and colon demonstrate no acute process. Peritoneum/Retroperitoneum:No free air or free fluid or lymphadenopathy. Abd wall/Bones: Abdominal wall demonstrates no acute findings. Osseous structures demonstrate mild degenerative change. CT/CT abdomen w con IMPRESSION: There appears to be abnormal wall thickening involving the gastric antrum. Finding likely relates to the history. A few adjacent mildly prominent lymph nodes are present. Developing local metastatic disease cannot BE excluded. Impression dictated by: Joe Burns Jr., D.O. 10/21/2024 1:53 PM Dictation Location: [place] [address] Electronically authenticated by: [id number] Y Date: 10/21/2024 13:53
== END 2024-10-21 12:24 | disposition home or self-care (01) ==
LOC: CT 12:23
PROVIDERS: PCP Family Medicine; Visit Provider Surgery
DX: R10.13 Epigastric pain (principal); K25.3 Acute gastric ulcer without hemorrhage or perforation
CPT/HCPCS: 74160; Q9967

== ENCOUNTER 2024-10-23 09:11 | Outpatient (OUT) | payer BC, SELFPAY ==
[2024-10-23 10:16] LABS: Calcium 9.1 mg/dL (8.5-10.1)
== END 2024-10-23 09:12 | disposition home or self-care (01) ==
LOC: LAB 09:11
PROVIDERS: PCP Family Medicine; Visit Provider Surgery
DX: R10.13 Epigastric pain (principal); K25.3 Acute gastric ulcer without hemorrhage or perforation
CPT/HCPCS: 36415; 82310

== ENCOUNTER 2024-11-20 06:55 | Outpatient (OUT) | payer BC, SELFPAY ==
--- NOTE | 2024-11-20 | MM_ITS ---
Patient Name: ANATOLIY STUART MR#: [id number] : 1970 Exam Date: 11/20/2024 Ordering Doctor: DR TRISTON WALKER . RADIOLOGY REPORT PROCEDURE: MM TOMOSYNTHESIS SCREENING BI COMPARISON: MM TOMOSYNTHESIS SCREENING BI, 11/20/2023. MG MAMM SCREEN 3D CHRISTAL CAD, 11/11/2022. MG MAMM SCREEN 3D CHRISTAL CAD, 11/10/2021. MG MAMM CHRISTAL SCRN W CAD DIG, 10/31/2012. INDICATIONS: screening for malignant neoplasm of breast Calculator Name [facility] Breast Cancer Risk Assessment Tool 5 Year Breast Cancer Risk 2.20% Lifetime Breast Cancer Risk 16.10% Personal Breast Cancer No Personal Ovarian Cancer No Treatments None Family Cancers Grandmother-paternal with breast cancer at age 70; Grandmother-maternal with colon/stomach cancer at age 60; Mother with breast cancer at age 68. LOCATION: [facility] BREAST COMPOSITION: The breasts are extremely dense, which lowers the sensitivity of mammography. FINDINGS: RIGHT BREAST: No significant suspicious finding. Benign-appearing calcifications are present. There similar focal asymmetries. LEFT BREAST: No significant suspicious finding. Benign-appearing calcifications are present. There are similar focal asymmetries. DIAGNOSTIC CATEGORY 2--BENIGN FINDING: RECOMMENDATIONS: ROUTINE MAMMOGRAM AND CLINICAL EVALUATION IN 12 MONTHS. PLEASE NOTE: A NORMAL MAMMOGRAM DOES NOT EXCLUDE THE POSSIBILITY OF BREAST CANCER. A CLINICALLY SUSPICIOUS PALPABLE LUMP SHOULD BE BIOPSIED. Dictated by: Min Davis MD on 11/20/2024 at 12:51 Approved by: Min Davis MD on 11/20/2024 at 12:54
--- OUTSIDE RECORDS SUMMARY | 2024-11-20 06:56 | XMS_ITS | Encounter Summary ---
Author Organization [facility] Address [address] [facility] [place] [address] Care Team Providers Care Metal Fabricating Inspector Name Role Phone Tess Nunn MD Primary Care Provider [phone] Encounter Details Date Type Department Care Team (Late st Contact Info) Description 07/18/2024 Orders Only [facility] [address] [place] [phone] Megan Rooney [address] [place] [address] Social History Tobacco Use Types Packs/Day Years Used Date Smoking Tobacco: Never Alcohol Use Standard Drinks/Week Comments Yes 0 (1 standard drink = 0.6 oz pur e alcohol) Occasional alcohol use Comments Unknown Sex and Gender Information Value Date Recorded Sex Assigned at Not on file Legal Sex Female 6:57 PM EDT Gender Identity Not on file Sexual Orientation Not on file documented as of this encounter Plan of Treatment Upcoming Encounters Date Type Department Care Team (Late st Contact Info) Description 07/14/2025 2:40 PM EST Office Visit [facility] [address] [place] [phone] Agapito Velazquez DO [address] [place] [address] Dr Fatem[address] [place], [place] [id number] documented as of this encounter Procedures Procedure Name Priority Date/Time Associated Diagnosis Comments PAP SMEAR Routine 07/10/2024 12:00 AM EST documented in this encounter Results * Pap Smear (07/10/2024 12:00 AM EST) Swab Cervical swab / Unknown Agapito Velazquez DO LAB CYTOLOGY ORDERABLES Final Re sult EXTERNAL LAB documented in this encounter Visit Diagnoses Not on filedocumented in this encounter Care Teams Metal Fabricating Inspector Relationship Specialty Start Date End Date Tess Nunn MD PCP - General Family Medicine 06/26/23 documented as of this encounter
--- OUTSIDE RECORDS SUMMARY | 2024-11-20 06:56 | XMS_ITS | Clinical Summary ---
Author Organization [facility] Address [address] [place] [address] Care Team Providers Care Title Department Manager Name Role Phone Unavailable Primary Care Provider Unavailabl e Social History Tobacco Use Types Packs/Day Years Used Date Smoking Tobacco: Never Assessed [place] Safety & Environment Answer Date Rec orded Fear of Current or Ex-Partner Not on file Emotionally Abused Not on file 08/10/2023 Physically Abused Not on file 08/10/2023 Sexually Abused Not on file 08/10/2023 Physically or Sexually Abused Not on file Sex and Gender Information Value Date Recorded Sex Assigned at Not on file Gender Identity Not on file Sexual Orientation Not on file Last Filed Vital Signs Vital Sign Reading Time Taken Comments Blood Pressure 119/70 03/19/2021 9:46 AM EDT Pulse - - Temperature - - Respiratory Rate - - Oxygen Saturation 98% 03/19/2021 9:46 AM EDT Inhaled Oxygen Concentration - - Weight 59.4 kg (131 lb) 03/19/2021 9:43 AM EDT Height 162.6 cm (5' 4 ) 03/19/2021 9:43 AM EDT Body Mass Index 22.49 03/19/2021 9:43 AM EDT Plan of Treatment Not on file
--- OUTSIDE RECORDS SUMMARY | 2024-11-20 06:56 | XMS_ITS | Clinical Summary ---
Author Organization Sqrrl s tem Address [id number] [address] [place] [address] Care Team Providers Care Automotive Vehicle Inspector Name Role Phone Tess Nunn MD Primary Care Provider [phone] Allergies No known active allergies Medications sucralfate (CARAFATE) 1 gram tablet Take 1 tablet (1 g total) by mouth in the morning and 1 tablet (1 g total) at noon and 1 tablet (1 g total) in the evening and 1 tablet (1 g total) before bedtime. 360 tablet 3 03/14/2022 Active pantoprazole (PROTONIX) 40 mg EC tablet TAKE 1 TABLET BY MOUTH IN THE MORNING AND 1 TABLET AT BEDTIME 180 tablet 3 04/03/2023 Active levothyroxine (SYNTHROID, LEVOTHROID) 75 MCG tablet Take 88 mcg by mouth in the morning. Active Active Problems Problem Noted Date Diagnosed Date Chronic superficial gastritis without bleeding 0 11/21/2016 Diverticulosis 11/21/2016 Family History Medical History Relation Name Comments Stomach cancer Maternal Aunt Lung cancer Maternal Grandfather Cancer Maternal Grandmother Colon cancer Maternal Grandmother Stomach cancer Maternal Grandmother Breast cancer Mother Cancer Mother Breast cancer Paternal Grandmother Pancreatic cancer Paternal Uncle Relation Name Status Comments Father Alive Maternal Aunt Alive Maternal Grandfather Maternal Grandmother Mother Alive Paternal Grandfather Paternal Grandmother Paternal Uncle Sister Alive Social History Tobacco Use Types Packs/Day Years Used Date Smoking Tobacco: Former Smokeless Tobacco: Never Alcohol Use Standard Drinks/Week Comments Yes 0 (1 standard drink = 0.6 oz pur e alcohol) SOCIAL Childcare Answer Date Recorded Childcare Unknown 11/27/2018 Employment Answer Date Recorded Employment Unknown 11/27/2018 Purpose - Life Answer Date Recorded Purpose and direction in life Unknown Comments No Sex and Gender Information Value Date Recorded Sex Assigned at Not on file Legal Sex Female 5:57 PM EDT Gender Identity Not on file Sexual Orientation Not on file Last Filed Vital Signs Vital Sign Reading Time Taken Comments Blood Pressure 107/72 03/14/2022 1:06 PM EDT Pulse - - Temperature 36.6 C (97.8 F) 03/14/2022 1:06 PM EDT Respiratory Rate - - Oxygen Saturation - - Inhaled Oxygen Concentration - - Weight 59.1 kg (130 lb 6.4 oz) 03/14/2022 1:06 P M EDT Height 163.8 cm (5' 4.5 ) 03/14/2022 1:06 PM EDT Body Mass Index 22.04 03/14/2022 1:06 PM EDT Plan of Treatment Health Maintenance Due Date Last Done Comments Depression Screening 1983 Tobacco Screening 1983 DTaP,Tdap and Td Vaccines (1 - Tdap) 10/28/1990 Pap Smear 10/28/1992 Zoster (Shingles) Vaccine (1 of 2) 10/28/2021 Colonoscopy 11/02/2021 11/02/2016, 01/19/2011 Adult BMI Screening 03/14/2023 03/14/2022 COVID-19 Vaccine (2 - 2023-2 5 season) 2024 05/05/2021 Influenza Vaccine 02/17/2025 03/30/2021, , 03/29/2019, Additional history exists Medical Devices Not on file Procedures Procedure Name Priority Date/Time Associated Diagnosis Comments COLONOSCOPY Routine 01/19/2011 from Last 3 Months or Most Recently Relevant to Health Maintenance Results * COLONOSCOPY (01/19/2011) Colonoscopy COLONOSCOPY [facility] EXTERNAL NON-INTERFACE D REF LAB us Scanning Provider External HEALTH MAINTENANCE Fi nal Result [facility] EXTERNAL NON-INTERFACED REF LAB [address] [facility] [place] [address] from Last 3 Months or Most Recently Relevant to Health Maintenance Insurance [employer] Care Teams Automotive Vehicle Inspector Relationship Specialty Start Date End Date Tess Nunn MD [facility] [place] [address] PCP - General 07/21/17
--- OUTSIDE RECORDS SUMMARY | 2024-11-20 06:56 | XMS_ITS | Encounter Summary ---
Author Organization [facility] Address [address] [facility] [facility] [place] [address] Care Team Providers Care Clinic Physician Director Name Role Phone Tess Nunn MD Primary Care Provider [phone] Encounter Details Date Type Department Care Team (Late st Contact Info) Description 07/03/2024 Orders Only [facility] [address] [place] [phone] Tricia Ivy LPN [address] [facility] [address] [facility] Social History Tobacco Use Types Packs/Day Years [...] 07/14/2025 2:40 PM EST Office Visit [facility] [address] [facility] [place] [phone] Agapito Velazquez DO [address] [facility] [address] [facility] [address] [place], [facility] documented as of this encounter Procedures Procedure Name Priority Date/Time Associated Diagnosis Comments PAP SMEAR Routine 06/26/2023 12:00 AM EST documented in this encounter Results * Pap Smear (06/26/2023 12:00 AM EST) Swab Cervical swab / Unknown us [facility] Nurse LAB CYTOLOGY ORDERABLES Final Result EXTERNAL LAB documented in this encounter Visit Diagnoses Not on filedocumented in this encounter Care Teams Clinic Physician Director Relationship Specialty Start Date End Date Tess Nunn MD PCP - General Family Medicine 06/26/23 documented as of this encounter
--- OUTSIDE RECORDS SUMMARY | 2024-11-20 06:56 | XMS_ITS | Encounter Summary ---
Author Organization [facility] Address [address] [facility] [place] [address] Care Team Providers Care General Agent Name Role Phone Tess Nunn MD Primary Care Provider [phone] Encounter Details Date Type Department Care Team (Late st Contact Info) Description 11/23/2023 Clinisync Result Encounter [facility] External Department Unsolicited Agapito Velazquez, DO [address] [place] [place] [address] Social History Tobacco Use Types Packs/Day Years [...] 07/14/2025 2:40 PM EST Office Visit [facility] [address] [place] [phone] Agapito Velazquez, [address] [facility] [address] [place] [address] documented as of this encounter Procedures Procedure Name Priority Date/Time Associated Diagnosis Comments MM TOMOSYNTHESIS SCREENING BI 11/23/2023 1:30 PM EDT documented in this encounter Results * MM TOMOSYNTHESIS SCREENING BI (11/23/2023 1:30 PM EDT) Anatomical Region Laterality Modality Other 11/23/2023 1:30 PM EDT Narrative 11/23/2023 1:31 [place] [address] Mammography Report Signed Patient: ANATOLIY MARIE MR#: [id number] : 1970 Acct:[id number] Age/Sex: 53 / F ADM Date: 11/20/23 Loc: MAMMO Attending Dr: Agapito Velazquez D.O. Ordering Physician: Agapito Velazquez D.O. Results: Date of Service: 11/20/23 Follow Up: Procedure(s): MM tomosynthesis screening BI Accession Number(s): [id number] cc: Tess Nunn M.D.; Agapito Velazquez D.O. Patient Name: ANATOLIY MARIE MR#: [id number] : 1970 Exam Date: 11/20/2023 Ordering Doctor: DR Agapito Velazquez . RADIOLOGY REPORT PROCEDURE: MM TOMOSYNTHESIS SCREENING BI COMPARISON: MG MAMM SCREEN 3D CHRISTAL CAD, 11/11/2022. MG MAMM SCREEN 3D CHRISTAL CAD, 11/10/2021. MG MAMM SCREEN 3D CHRISTAL CAD, 10/28/2020. MG MAMM CHRISTAL SCRN W CAD DIG, 10/31/2012. INDICATIONS: Screening Calculator Name NCI Breast Cancer Risk Assessment Tool 5 Year Breast Cancer Risk 2.10% Lifetime Breast Cancer Risk 16.30% Personal Breast Cancer No Personal Ovarian Cancer No Treatments None Family Cancers Grandmother-paternal with breast cancer at age 70; Grandmother-maternal with colon/stomach cancer at age 60; Mother with breast cancer at age 68. LOCATION: [facility] BREAST COMPOSITION: The breasts are extremely dense, which lowers the sensitivity of mammography. FINDINGS: DIAGNOSTIC CATEGORY 2--BENIGN FINDING: RIGHT BREAST: No significant suspicious finding. Scattered benign-appearing calcifications are present. Stable, chronic 1 cm dense mass versus cyst within lower-inner quadrant. No significant change has occurred. LEFT BREAST: No significant suspicious finding. Scattered benign-appearing calcifications are present. No significant change has occurred. RECOMMENDATIONS: ROUTINE MAMMOGRAM AND CLINICAL EVALUATION IN 12 MONTHS. PLEASE NOTE: A NORMAL MAMMOGRAM DOES NOT EXCLUDE THE POSSIBILITY OF BREAST CANCER. A CLINICALLY SUSPICIOUS PALPABLE LUMP SHOULD BE BIOPSIED. Dictated by: Andres Foreman M.D. on 11/23/2023 at 13:24 Approved by: Andres Foreman M.D. on 11/23/2023 at 13:30 Dictated By: Andres Foreman M.D. Signed By: 11/23/23 1331 DD/ 1330 TD/TT: Teletypesetter Operator: Procedure Note Radiology, Radiologist, MD - 11/23/2023 [place] [address] Mammography Report Signed Patient: ANATOLIY MARIE LMR#: [id number] : 1970Acct:[id number] Age/Sex: 53 / FADM Date: 11/20/23 Loc: MAMMO Attending Dr: Agapito Velazquez D.O. Ordering Physician: Agapito Velazquez D.O.Results: Date of Service: 11/20/23Follow Up: Procedure(s): MM tomosynthesis screening BI Accession Number(s): [id number] cc: Tess Nunn M.D.; Agapito Velazquez D.O. Patient Name: ANATOLIY MARIE MR#: [id number] : 1970 Exam Date: 11/20/2023 Ordering Doctor: DR Agapito Velazquez . RADIOLOGY REPORT PROCEDURE: MM TOMOSYNTHESIS SCREENING BI COMPARISON: MG MAMM SCREEN 3D CHRISTAL CAD, 11/11/2022. MG MAMM SCREEN 3DBIL CAD, 11/10/2021. MG MAMM SCREEN 3D CHRISTAL CAD, 10/28/2020. MG MAMM CHRISTAL SCRN WCAD DIG, 10/31/2012. INDICATIONS: Screening Calculator Name NCI Breast Cancer Risk Assessment Tool 5 Year Breast Cancer Risk 2.10% Lifetime Breast Cancer Risk 16.30% Personal Breast Cancer No Personal Ovarian Cancer No Treatments None Family Cancers Grandmother-paternal with breast cancer at age 70; Grandmother-maternal with colon/stomach cancer at age 60; Mother withbreast cancer at age 68. LOCATION: [facility] BREAST COMPOSITION: The breasts are extremely dense, which lowers the sensitivity of mammography. FINDINGS: DIAGNOSTIC CATEGORY 2--BENIGN FINDING: RIGHT BREAST: No significant suspicious finding. Scatteredbenign-appearing calcifications are present. Stable, chronic 1 cm dense mass versus cyst within lower-inner quadrant. No significant change has occurred. LEFT BREAST: No significant suspicious finding. Scatteredbenign-appearing calcifications are present. No significant change has occurred. RECOMMENDATIONS: ROUTINE MAMMOGRAM AND CLINICAL EVALUATION IN 12 MONTHS. PLEASE NOTE: A NORMAL MAMMOGRAM DOES NOT EXCLUDE THE POSSIBILITY OFBREAST CANCER. A CLINICALLY SUSPICIOUS PALPABLE LUMP SHOULD BE BIOPSIED. Dictated by: Andres Foreman M.D. on 11/23/2023 at 13:24 Approved by: Andres Foreman M.D. on 11/23/2023 at 13:30 Dictated By: Andres Foreman M.D. Signed By:11/23/23 1331 DD/ 1330 TD/TT: Teletypesetter Operator: [facility] Final Result documented in this encounter Visit Diagnoses Not on filedocumented in this encounter Care Teams General Agent Relationship Specialty Start Date End Date Tess Nunn MD PCP - General Family Medicine 06/26/23 documented as of this encounter
--- OUTSIDE RECORDS SUMMARY | 2024-11-20 06:56 | XMS_ITS | Encounter Summary ---
Author Organization [facility] Address [address] [facility] [place] [address] Care Team Providers Care Planning Specialist Name Role Phone Tess Nunn MD Primary Care Provider [phone] Encounter Details Date Type Department Care Team (Late st Contact Info) Description 06/29/2023 Clinisync Result Encounter [facility] External Department Unsolicited Triston Velazquez, DO [address] [place] [address] Social History Tobacco Use Types Packs/Day Years [...] 07/14/2025 2:40 PM EST Office Visit [facility] OB [address] [place] [phone] Triston Velazquez, [address] [place] [address] documented as of this encounter Procedures Procedure Name Priority Date/Time Associated Diagnosis Comments XR DEXA AXIAL SKELETON 06/29/2023 3:46 PM EST documented in this encounter Results * XR DEXA AXIAL SKELETON (06/29/2023 3:46 PM EST) Anatomical Region Laterality Modality Other 06/29/2023 3:46 PM EST Narrative 06/29/2023 3:48 PM EST The [address] [address] XRay Report Signed Patient: ANATOLIY MAREI MR#: [id number] : 1970 Acct:[id number] Age/Sex: 52 / F ADM Date: 06/29/23 Loc: RAD Attending Dr: Triston Velazquez D.O. Ordering Physician: Triston Vleazquez D.O. Date of Service: 06/29/23 Procedure(s): XR DEXA axial skeleton Accession Number(s): [id number] cc: Tess Nunn M.D.; Triston Velazquez D.O. [address] [address] Patient Name: ANATOLIY MARIE MRN: [id number] date: 1970 Sex: F Assigned Patient Location: [facility] Current Patient Location: [facility] Accession/Order Number: [id number] Exam Date: 06/29/2023 15:00 Report Date: 06/29/2023 15:46 At the request of: TRISTON VELAZQUEZ Procedure: XR DEXA axial skeleton EXAMINATION: XR DEXA axial skeleton, 06/29/2023 3:00 PM EST HISTORY: Postmenopausal State COMPARISON: None. TECHNIQUE: Dual-energy X-ray absorptiometry (DEXA) bone density study performed for the axial skeleton. HISTORY: Postmenopausal State FINDINGS: Bone mineral density AP spine L2-L4 measures 1.235 g/sq cm. Young adult T score 0.3. WHO classification: Normal. Lowest bone mineral densities the left femoral trochanter measuring 0.737 g/sq cm. T score -1.0. WHO classification: Normal XR/XR DEXA axial skeleton IMPRESSION: Normal bone mineral density. Low fracture risk Electronically authenticated by: TYLOR ALAMO Date: 06/29/2023 15:46 Dictated By: Tylor Alamo M.D. Signed By: 06/29/23 1548 DD/ 1546 TD/TT: Ornamental Iron Worker: Procedure Note Radiology, Radiologist, MD - 06/29/[address] [address] XRay Report Signed Patient: ANATOLIY MARIE LMR#: [id number] : 1970Acct:[id number] Age/Sex: 52 / FADM Date: 06/29/23 Loc: RAD Attending Dr: Triston Velazquez D.O. Ordering Physician: Triston Velazquez D.O. Date of Service: 06/29/23 Procedure(s): XR DEXA axial skeleton Accession Number(s): [id number] cc: Tess Nunn M.D.; Triston Velazquez D.O. The [address] [address] Patient Name: ANATOLIY MARIE MRN: [id number] date: 1970 Sex: F Assigned Patient Location: [facility] Current Patient Location: [facility] Accession/Order Number: [id number] Exam Date: 06/29/2023 15:00 Report Date: 06/29/2023 15:46 At the request of: TRISTON VELAZQUEZ Procedure: XR DEXA axial skeleton EXAMINATION: XR DEXA axial skeleton, 06/29/2023 3:00 PM EST HISTORY: Postmenopausal State COMPARISON: None. TECHNIQUE: Dual-energy X-ray absorptiometry (DEXA) bone density study performed for the axial skeleton. HISTORY: Postmenopausal State FINDINGS: Bone mineral density AP spine L2-L4 measures 1.235 g/sq cm. Young adult T score 0.3. WHO classification: Normal. Lowest bone mineral densities the left femoral trochanter measuring 0.737g/sq cm. T score -1.0. WHO classification: Normal XR/XR DEXA axial skeleton IMPRESSION: Normal bone mineral density. Low fracture risk Electronically authenticated by: TYLOR ALAMO Date: 06/29/2023 15:46 Dictated By: Tylor Alamo M.D. Signed By:06/29/23 1548 DD/ 1546 TD/TT: Ornamental Iron Worker: us Triston Velazquez DO [facility] Final Result documented in this encounter Visit Diagnoses Not on filedocumented in this encounter Care Teams Planning Specialist Relationship Specialty Start Date End Date Tess Nunn MD PCP - General Family Medicine 06/26/23 documented as of this encounter
--- OUTSIDE RECORDS SUMMARY | 2024-11-20 06:56 | XMS_ITS | Referral Summary ---
Author Organization [facility] Address [address] [place] [address] Care Team Providers Care Model Maker Firearms Name Role Phone Unavailable Primary Care Provider Unavailabl e Social History Tobacco Use Types Packs/Day Years Used Date Smoking Tobacco: Never Assessed [place] Safety & Environment Answer Date Rec orded [...]
--- OUTSIDE RECORDS SUMMARY | 2024-11-20 06:56 | XMS_ITS | Encounter Summary ---
Author Organization [facility] Address [address] [facility] [place] [address] Care Team Providers Care Auto Headlight Mechanic Name Role Phone Tess Nunn MD Primary Care Provider Encounter Details Date Type Department Care Team (Late st Contact Info) Description 11/11/2022 Clinisync Result Encounter [facility] External Department Unsolicited Triston Velazquez, DO [address] [place] [address] Social History Tobacco Use Types Packs/Day Years Used Date Smoking Tobacco: Never Assessed Comments Unknown Sex and Gender Information Value Date Recorded Sex Assigned at Not on file Legal Sex Female 6:57 PM EDT Gender Identity Not on file Sexual Orientation Not on file documented as of this encounter Plan of Treatment Upcoming Encounters Date Type Department Care Team (Late st Contact Info) Description 07/14/2025 2:40 PM EST Office Visit [facility] OB [address] [place] [phone] Triston Velazquez, [address] [place] [address] documented as of this encounter Procedures Procedure Name Priority Date/Time Associated Diagnosis Comments MG MAMM SCREEN 3D CHRISTAL CAD 11/11/2022 6:50 AM EDT documented in this encounter Results * MG MAMM SCREEN 3D CHRISTAL CAD (11/11/2022 6:50 AM EDT) Anatomical Region Laterality Modality Other 11/11/2022 6:50 AM EDT Narrative 11/11/2022 6:50 AM EDT Patient: ANATOLIY MARIE. Exam Date: 11/11/2022 : 1970 Gender:F Ordering : DR TRISTON VELAZQUEZ . Admission #: [id number] Family : Order #: [id number] CLICK HERE TO VIEW EXAM RADIOLOGY REPORT [...] breast cancer at age 69. LOCATION: [facility] BREAST COMPOSITION: Extremely dense, which lowers the [...] PALPABLE LUMP SHOULD BE BIOPSIED. Dictated by: Nam Andrade MD on 11/11/2022 at 13:39 Approved by: Nam Andrade MD on 11/11/2022 at 13:58 Procedure Note Radiology, Radiologist, MD - 11/11/2022 Patient: ANATOLIY MARIE. Exam Date: 11/11/2022 : 1970 Gender:F Ordering : DR TRISTON VELAZQUEZ . Admission #: [id number] Family : Order #: [id number] CLICK HERE TO VIEW EXAM RADIOLOGY REPORT PROCEDURE: MAMMOGRAM SCREENING 3D BILATERAL CAD COMPARISON: MG MAMM SCREEN 3D CHRISTAL CAD, 10/28/2020. MG MAMM SCREEN 3DBIL CAD, 11/10/2021. INDICATIONS: Screening mammography Calculator Name NCI Breast Cancer Risk Assessment Tool 5 Year Breast Cancer Risk 2.00% Lifetime Breast Cancer Risk 16.60% Personal Breast Cancer No Personal Ovarian Cancer No Treatments None Family Cancers Grandmother-paternal with breast cancer at age 70; Grandmother-maternal with colon/stomach cancer at age 60; Mother withbreast cancer at age 68. LOCATION: [facility] BREAST COMPOSITION: Extremely dense, which lowers the sensitivity of mammography. FINDINGS: DIAGNOSTIC CATEGORY 2--BENIGN FINDING. NO CHANGE FROM COMPARISON. Scattered benign-appearing nodules are present. Scatteredbenign-appearing calcifications are present. Scattered benign-appearing lymph nodes are present. RIGHT BREAST: No significant suspicious finding. LEFT BREAST: No significant suspicious finding. RECOMMENDATIONS: ROUTINE MAMMOGRAM AND CLINICAL EVALUATION IN 12 MONTHS. PLEASE NOTE: A NORMAL MAMMOGRAM DOES NOT EXCLUDE THE POSSIBILITY OFBREAST CANCER. A CLINICALLY SUSPICIOUS PALPABLE LUMP SHOULD BE BIOPSIED. Dictated by: Nam Andrade MD on 11/11/2022 at 13:39 Approved by: Nam Andrdae MD on 11/11/2022 at 13:58 [facility] Final Result documented in this encounter Visit Diagnoses Not on filedocumented in this encounter Care Teams Auto Headlight Mechanic Relationship Specialty Start Date End Date Tess Nunn MD PCP - General Family Medicine 06/26/23 documented as of this encounter
--- OUTSIDE RECORDS SUMMARY | 2024-11-20 06:56 | XMS_ITS | Clinical Summary ---
Author Organization [facility] Address [address] [facility] [place] [address] Care Team Providers Care Trolley Car Mechanic Name Role Phone Tess Nunn MD Primary Care Provider [phone] Allergies No known active allergies Medications levothyroxine (Synthroid, Levoxyl) 88 MCG tablet TAKE ONE TABLET BY MOUTH IN THE MORNING ON AN EMPTY STOMACH ONCE DAILY 02/13/2023 Active pantoprazole (ProtoNix) 40 MG EC tablet TAKE 1 TABLET BY MOUTH IN THE MORNING AND 1 TABLET AT BEDTIME 04/03/2023 Active sucralfate (Carafate) 1 g tablet Take by mouth 4 (four) times a day before meals Active estrogens, conjugated, (Premarin) 0.3 MG tabletIndicatio ns:Hot flashes Take 1 tablet (0.3 mg) by mouth Daily Take 1 tablet daily by mouth for 30 days 30 tablet 3 07/10/2024 Active estradiol (Estrace) 0.5 MG tabletIndicatio ns:Hormone disorder Take 1 tablet (0.5 mg) by mouth Daily Take 1 tablet by mouth for 30 days 30 tablet 11 08/12/2024 Active Family History Medical History Relation Name Comments Colon cancer Maternal Grandmother Breast cancer Mother Breast cancer Paternal Grandmother Relation Name Status Comments Daughter 1 Alive Daughter 2 Alive Maternal Grandmother Mother Paternal Grandmother Social History Tobacco Use Types Packs/Day Years Used Date Smoking Tobacco: Never Tobacco Cessation:Counseling Given: Not Answered Alcohol Use Standard Drinks/Week Comments Yes 0 (1 standard drink = 0.6 oz pur e alcohol) Occasional alcohol use Comments Unknown Sex and Gender Information Value Date Recorded Sex Assigned at Not on file Legal Sex Female 6:57 PM EDT Gender Identity Not on file Sexual Orientation Not on file Last Filed Vital Signs Vital Sign Reading Time Taken Comments Blood Pressure 116/74 07/10/2024 2:58 PM EST Pulse - - Temperature - - Respiratory Rate - - Oxygen Saturation - - Inhaled Oxygen Concentration - - Weight 59 kg (130 lb 1.9 oz) 07/10/2024 2:58 PM EST Height 162.6 cm (5' 4 ) 06/22/2022 12:00 PM EST Body Mass Index 22.34 06/22/2022 12:00 PM EST Plan of Treatment Upcoming Encounters Date Type Department Care Team (Late st Contact Info) Description 07/14/2025 2:40 PM EST Office Visit [facility] OB [address] [place] [phone] Agapito Velazquez, DO [address] [place] [address] [place] [address] Health Maintenance Due Date Last Done Comments CT Colonography 1970 FIT-DNA 1970 FIT 1970 FOBT 1970 Sigmoidoscopy 1970 Mammogram 11/22/2024 11/23/2023, 11/11/2022, 09/2022 Colonoscopy 11/02/2026 11/02/2016, 01/19/2011 Colorectal Cancer Screening 11/02/2026 Cervical Cancer Screening 07/10/2029 HPV/Cotest 07/10/2029 Pap Smear 07/10/2029 07/10/2024, 06/26/2023 Influenza Vaccine Completed 04/19/2024, , 04/01/2020, Additional history exists Procedures Procedure Name Priority Date/Time Associated Diagnosis Comments PAP SMEAR Routine 07/10/2024 12:00 AM EST MM TOMOSYNTHESIS SCREENING BI 11/23/2023 1:30 PM EDT from Last 3 Months or Most Recently Relevant to Health Maintenance Results * Pap Smear (07/10/2024 12:00 AM EST) Swab Cervical swab / Unknown us Agapito Velazquez DO LAB CYTOLOGY ORDERABLES Final Re sult EXTERNAL LAB * MM TOMOSYNTHESIS SCREENING BI (11/23/2023 1:30 PM EDT) Anatomical Region Laterality Modality Other 11/23/2023 1:30 PM EDT Narrative 11/23/2023 1:31 [place] [address] Mammography Report Signed Patient: ANATOLIY MARIE MR#: [id number] : 1970 Acct:[id number] Age/Sex: 53 / F ADM Date: 11/20/23 Loc: MAMMO Attending Dr: Agapito Velazquez D.O. Ordering Physician: Agapito Velazquez D.O. Results: Date of Service: 11/20/23 Follow Up: Procedure(s): MM tomosynthesis screening BI Accession Number(s): [id number] cc: Tess Nunn M.D.; Agapito Velazquez D.O. Patient Name: ANATOLIY MARIE MR#: [id number] : 1970 Exam Date: 11/20/2023 Ordering Doctor: [...] breast cancer at age 69. LOCATION: [facility] BREAST COMPOSITION: The breasts are extremely dense, [...] Signed By: 11/23/23 1331 DD/ 1330 TD/TT: Technical Specialist: Procedure Note Radiology, Radiologist, MD - 11/23/2023 [place] [address] Mammography Report Signed Patient: ANATOLIY MARIE LMR#: [id number] : 1970Acct:[id number] Age/Sex: 53 / FADM Date: 11/20/23 Loc: MAMMO Attending Dr: Agapito Velazquez D.O. Ordering Physician: Agapito Velazquez D.O.Results: Date of Service: 11/20/23Follow Up: Procedure(s): MM tomosynthesis screening BI Accession Number(s): [id number] cc: Tess Nunn M.D.; Agapito Velazquez D.O. Patient Name: ANATOLIY MARIE MR#: [id number] : 1970 Exam Date: 11/20/2023 Ordering Doctor: [...] withbreast cancer at age 69. LOCATION: [facility] BREAST COMPOSITION: The breasts are extremely dense, [...] M.D. Signed By:11/23/23 1331 DD/ 1330 TD/TT: Technical Specialist: us Agapito Marcus DO [facility] Final Result from Last 3 Months or Most Recently Relevant to Health [place] [address] [facility] Care Teams Trolley Car Mechanic Relationship Specialty Start Date End Date Tess Nunn MD PCP - General Family Medicine 06/26/23
--- OUTSIDE RECORDS SUMMARY | 2024-11-20 06:57 | XMS_ITS | CCD ---
Author Organization [facility] Care Team Providers Care Building Carpenter Name Role Phone PIPPA ., DR WILSON Admitting Unavailabl e KARASIK ., DR WILSON Consulting Unavailabl e KARCHIP ., DR WILSON Attending Unavailabl e ARMOND, DR TESS Pickard Primary Care Unavailable EAG[place]ILLE, DR TYLOR Whitney Consulting Unavailable LEAHY, DR TESS Pickard Consulting Unavailable LEAHY, DR TESS Pickard Attending Unavailable LEAHY, DR TESS Pickard Admitting Unavailable LEAHY, DR TESS Pickard Primary Care Unavailable KARASIKatalina ., DR WILSON Admitting Unavailabl e KARASIK ., DR WILSON Consulting Unavailabl e KARASIKatalina ., DR WILSON Attending Unavailabl e LEAHY, DR TESS Pickard Primary Care Unavailable TESS LEAHY Primary Care Physician MD Alis Beth Primary Care Provider [phone] MD Anup Pearl Attending Provider MD Tess Leahy Primary Care Provider [phone] MD Anup Pearl Attending Provider Tess Leahy MD Primary Care Provider Anup Pearl MD Attending Provider Tess Leahy MD Primary Care Provider [phone] TRISTON VELAZQUEZ Attending Unavailable GUILHERME ROMO Attending Unavailable Nill, Anup Frias Admitting Unavailable Nill, Anup Frias Attending Unavailable Nill, Anup Frias Admitting Unavailable Tess Leahy Primary Care Unavailable Nill, Anup Frias Attending Unavailable Alis Beth Primary Care Unavailable Nill, Anup Frias Attending Unavailable Nill, Anup Frias Admitting Unavailable Nill Anup ROSALES Attending Provider [phone] Anup PEARL Attending Unavailable NILL, Anup Frias Attending Unavailable NILL, Anup Frias Attending Unavailable Allergies Allergy Classification Reported Allergen(s) Allergy Type Date of Onset Reaction(s) Facility (1 source) No Known Medication Allergies; Translations: [No Known Medication Allergies] Propensity to adverse reactions (disorder) [facility] Repository Medications Current Medications Medication Drug Class(es) Dates Sig (Normalized) Sig (Original) estrogens, conjugated (fdc) 0.3 mg oral tablet (3 sources) Estrogen [...] Active levothyroxine sodium 0.088 mg oral tablet (14 sources) l-Thyroxine Start: 01-09-2024 take 1 tablet by mouth once daily in the morning Levothyroxine 88 mcg tablet Active 0 .ROUTE .COMPLEX 90 January 09, 2024 10:41am TAKE 1 TABLET BY MOUTH IN THE MORNING ON AN EMPTY STOMACH ONCE DAILY Start: 11-07-2023 End: 01-09-2024 take 1 capsule by mouth once daily Levothyroxine 88 mcg capsule Discontinued 88 MCG PO Daily November 07, 2023 12:00am January 09, 2024 10:41am Start: 08-30-2023 take 1 tablet by ronal [...] pantoprazole 40 mg delayed release oral tablet (10 sources) Proton Pump Inhibitor Start: 08-30-2023 take 1 tablet by mouth once daily Protonix 20 mg Tab-DR 20 mg = 1 tab(s), Oral, Daily, Refills(s) 0 Start Date: 08/30/23 Status: Ordered Start: 04-03-2023 take 1 tablet by ronal th twice daily Pantoprazole (Protonix) 40 mg tablet,delayed release (DR/EC) Active 40 MG PO Twice daily November 20, 2023 12:00am sucralfate 1000 mg oral tablet (9 sources) Aluminum Complex Start: 11-20-2023 take 1 tablet by mouth once before mealtime Sucralfate (Carafate) 1 gram tablet Active 1 GM PO 3x/Day before meals November 20, 2023 12:00am sucralfate (Connie fate) 1 g tablet Take by mouth 4 (four) times a day before meals Active Completed/Discontinued Medications Medication Drug Class(es) Dates Sig (Normalized) Sig (Original) amoxicillin 875 mg / clavulanate 125 mg oral tablet (2 sources) Penicillin-class Antibacterial Start: 05-15-2024 End: 10-28-2024 take 1 tablet by mouth twice daily Amoxicillin-Pot Clavulanate 875-125 mg tablet Discontinued 1 TAB PO Twice daily May 15, 2024 1:00am October 28, 2024 2:56pm estradiol 0.5 mg oral tablet (2 sources) Estrogen Start: 07-10-2024 End: 07-10-2024 take 1 tablet by mouth once daily estradiol (Estrace) 0.5 MG tablet Indications: Hot flashes Take 1 tablet (0.5 mg) by mouth Daily Take 1 tablet by mouth for 30 days 30 tablet 07/10/2024 07/10/2024 Discontinued (Ineffective) Problems Active Problems Problem Classification Problem Date Documented Da te Episodic/Chronic Abdominal pain (2 sources) Epigastric pain; Translations: [Epigastric pain] Onset: 4 Episodic Administrative/social admission (4 sources) Memory finding; Translations: [Person with feared [...] disease] Onset: 4 Episodic Headache; including migraine (4 sources) Headache; Translations: [Headache] 05-06-2024 Episodic Other [...] Flushing; Translations: [Flushing] 07-10-2024 Episodic Thyroid disorders (8 sources) Hypothyroidism; Translations: [Hypothyroidism, unspecified] Onset: 3 08-30-2023 Chronic Unclassified (1 source) Body mass index 20-24 - normal 08-30-2023 Past or Other Problems Problem Classification Problem Date Documented Date Episodic/Chronic Immunizations and screening for infectious disease (1 source) Encounter for screening for human papillomavirus (HPV); Translations: [ENC SCREENING HUMAN PAPILLOMAVIRUS] Onset: 06-26-2022 Episodic Results Test Name Value Interpretation Reference Range Facility Laboratory - Chemistry and C hemistry - challengeon 10-23-2024 Calcium [Mass/Vol] 9.1 mg/dL 8.5-10.1 [facility] Reminderson 10-11-2024 Reminders Reminders From: Taryn Acuna LPN To: N - Clinical; Sent: 10/11/2024 08:23:07 EDT Show up: 12/17/2024 07:00:00 EDT Subject: EGD recall Due Date/Time: 01/01/2025 07:00:00 EDT Reminder/Recall Patient due for EGD 01/01/2025 for history of gastric ulcer. Normal [facility] No Panel InformationOrdered By: Anup Pearl on 10-02-2024 Miscellaneous Pathology Test See comment [facility] Comment on above: See report. Scanned copy available in EMR. Pathology Request for Lab Co rpon 10-02-2024 Pathology Request for Lab Melodie Normal [facility] Comment on above: Order Comment: GI SP ECIMEN Result Comment: See report. Scanned copy available in EMR. PERFORMED BY: [place] [address] PATHOLOGIST TRANSFORMATION CONSULTANT JOSHUA MARSHALL M.D. Performed By: #### P ATH TO [facility] #### [address] Ambulatory Visit Summaryon 0 09-24-2024 Ambulatory Visit [...] for choosing us for your care. Normal [facility] IGP,APTIMA HPV,AGE GDLNon AGE GDLN ACOG TESTING Note . [facility] Comment on above: TESTS RESULT FLAG UN ITS REF RANGE LAB Clinician Provided Cytology Information Source.............Cervix;Endocervix No. of containers..01 ThinPrep Vial Age Algo ACOG Valencia... 30-65 01 FLAG LEGEND: L-Low Normal,H-High Normal,LL-Alert Low,HH-Alert High <-Panic Low,>-Panic High,A-Abnormal,AA-Critical Abnormal Performed at: 01 =G [address] [address] Lilo Ferrer MD, HPV APTIMA Negative Negative [facility] Comment on above: This nucleic acid am plification test detects fourteen high- risk HPV types (16,18,31,33,35,39,45,51,52,56,58,59,66,68) without differentiation. Performed at: = - [facility] [id number] Addiction Treatment Counselor: Lilo Ferrer MD, Phone: [phone] Performed at: - [facility], [place] [id number] Addiction Treatment Counselor: Lilo Ferrer MD, Phone: [phone] IGP, APTIMA HPV, RFX 16/18,[birth year] Note . [facility] Comment on above: TESTS RESULT FLAG UN ITS REF RANGE LAB DIAGNOSIS: 02 NEGATIVE FOR INTRAEPITHELIAL LESION OR MALIGNANCY. Specimen adequacy: 02 Satisfactory for evaluation. Endocervical and/or squamous metaplastic cells (endocervical component) are present. Performed by: Mert Pantoja, Melt Supervisor . 02 Note: Note 02 The Pap [...] High,A-Abnormal,AA-Critical Abnormal Performed at: 02 [facility] [address] [place] [address] Lilo Ferrer MD, BRUSH-SPATULA CERVIX ENDOCERVIX [facility] Basophils Auto (Bld) [#/Vol] on 02-14-2024 Basophils (Bld) [#/Vol] Automated basophil count 0.0-0.1 [facility] Basophils/100 WBC Auto (Bld) on 02-14-2024 Basophils/100 WBC (Bld) Automated basophil % 0. 2-2.0 [facility] Eosinophils/100 WBC Auto (Bl d)on 02-14-2024 Eosinophils/100 WBC (Bld) Automated eosinophil % High 0.9-7.0 [facility] Erythrocyte distribution wid th Auto (RBC) [Ratio]on 02-14-2024 Erythrocyte distribution width (RBC) [Ratio] Erythrocyte distribution width [Ratio] by Automated count 11.0-15.0 [facility] HCG ( test) IA.rapi d Ql (U)on 02-14-2024 HCG ( test) Ql (U) Urine human chorionic gonadotropin (hCG) detection by immunoassay NEGATIVE [facility] Hematocrit Auto (Bld) [Volum e fraction]on 02-14-2024 Hematocrit (Bld) [Volume fraction] Hematocrit [Volume Fraction] of Blood by Automated count 36.0-48.0 [facility] Hemoglobin [Mass/volume] in Bloodon 02-14-2024 Hemoglobin (Bld) [Mass/Vol] Hemoglobin [Mass/volume] in Blood 12.0-16.0 [facility] Shahab 02-14-2024 L Specimen: [id number] Received: 02/15/24 Status: KATIE Quinn Num: [id number] Spec Type: Surgical Subm Dr: Anup Pearl MD FACS Tissues: A Esophagus Biopsy (ANTRAL ULCER BX) Procedures: HE/2, Gross/Micro L4 Age/ Patient Sex Location Account Attending Physician Ioana Marie 53/F LABELL [id number] Anup Pearl MD FACS SPEC NUM: [id number] RECD: 02/15/24 STATUS: KATIE QUINN NUM: [id number] CARYN: 02/14/[address] [facility] [address]: Anup Pearl MD FACS ENTERED: 02/15/[address] [facility] DR: Prerna Lee SPEC TYPE: Surgical DEPT: JEFRY TRUONG ENTERED BY: [id number] RECV BY: [id number] ORDERED: HE/2, Gross/Micro L4 ORDERED: HE/2, Gross/Micro [...] is entirely submitted in cassette A1. Specimen: [id number] Received: 02/15/24 Status: KATIE Quinn Num: [id number] Spec Type: Surgical Subm Dr: Anup Pearl MD FACS Tissues: A Esophagus Biopsy (ANTRAL ULCER BX) Procedures: HE/2, Gross/Micro L4 Patient: Ioana Marie [id number] (Continued) Specimen: [id number] Received: 02/15/24 (Continued) Signed (signature on file) Samantha Hirsch MD 02/23/24 0923 Specimen: [id number] Received: 02/15/24 Status: KATIE Quinn Num: [id number] Spec Type: Surgical Subm Dr: Anup Pearl MD FACS Tissues: A Esophagus Biopsy (ANTRAL ULCER BX) Procedures: Kehinde BLACK/Micro L4 Patient: Ioana Marie [id number] (Continued) Specimen: [id number] Received: 02/15/24 (Continued) Microscopic Description Microscopic examinations are performed supporting the above interpretation CPT Codes 30783 Specimen: [id number] Received: 02/15/24 Status: KATIE Enriquezzaira Num: [id number] Spec Type: Surgical Subm Dr: Anup Pearl MD FACS Tissues: A Esophagus Biopsy (ANTRAL ULCER BX) Procedures: BUD/Jennifer, Gross/Micro L4 Patient: Ioana Marie [id number] (Continued) Signed (signature on file) Samantha Hirsch MD 02/23/24 0923 Normal [facility] Laboratory - Hematology and Cell countson 02-14-2024 Immature granulocytes/100 WBC (Bld) 0.2 % 0.0-0.5 [facility] Leukocytes [#/volume] correc stephanie for nucleated erythrocytes in Blood by Automated counon 02-14-2024 WBC corrected for nucl RBC Auto (Bld) [#/Vol] Leukocytes [#/volume] corrected for nucleated erythrocytes in Blood by Automated coun 4.0-11.0 [facility] Lymphocytes Auto (Bld) [#/Vo l]on 02-14-2024 Lymphocytes (Bld) [#/Vol] Lymphocytes [#/volume] in Blood by Automated count 1.2-3.8 [facility] Lymphocytes/100 WBC Auto (Bl d)on 02-14-2024 Lymphocytes/100 WBC (Bld) Lymphocytes/100 leukocytes in Blood by Automated count 20.5-60.0 [facility] MCH Auto (RBC) [Entitic mass ]on 02-14-2024 MCH (RBC) [Entitic mass] MCH [Entitic mass] by Automated count 26.7-34.0 [facility] MCHC Auto (RBC) [Mass/Vol]on 02-14-2024 MCHC (RBC) [Mass/Vol] MCHC [Mass/volume] by Automated count 29.9-35.2 [facility] MCV Auto (RBC) [Entitic vol] on 02-14-2024 MCV (RBC) [Entitic vol] MCV [Entitic vol ume] by Automated count 81.0-99.0 [facility] Monocytes Auto (Bld) [#/Vol] on 02-14-2024 Monocytes (Bld) [#/Vol] Automated blood monocyte count 0.3-0.8 [facility] Monocytes/100 WBC Auto (Bld) on 02-14-2024 Monocytes/100 WBC (Bld) Automated monocyte % 1. 7-12.0 [facility] Neutrophils Auto (Bld) [#/Vo l]on 02-14-2024 Neutrophils (Bld) [#/Vol] Neutrophils [#/volume] in Blood by Automated count 1.4-6.5 [facility] Neutrophils/100 WBC Auto (Bl d)on 02-14-2024 Neutrophils/100 WBC (Bld) Automated neutrophil % Low 43.0-75.0 [facility] No Panel Informationon 02-13 Eosinophils # (Auto) 1.2 10 3/uL High 0.0-0.7 [facility] Immature Granulocyte # (Auto) 0.01 10 3/uL 0.00-0.03 [facility] Platelet mean volume Auto (B ld) [Entitic vol]on 02-14-2024 Platelet mean volume (Bld) [Entitic vol] Platelet mean volume [Entitic volume] in Blood by Automated count 9.5-13.5 [facility] Platelets Auto (Bld) [#/Vol] on 02-14-2024 Platelets (Bld) [#/Vol] Platelets [#/vol ume] in Blood by Automated count 150-450 [facility] RBC Auto (Bld) [#/Vol]on RBC (Bld) [#/Vol] Erythrocytes [#/volu me] in Blood by Automated count 4.20-5.40 [facility] Basophils Auto (Bld) [#/Vol] on 11-14-2023 Basophils (Bld) [#/Vol] 0.1 10 3/uL 0.0-0.1 [facility] Basophils/100 WBC Auto (Bld) on 11-14-2023 Basophils/100 WBC (Bld) 0.8 % 0.2-2.0 F [facility] Cholesterol in LDL Calc [Mas s/Vol]on 11-14-2023 Cholesterol in LDL [Mass/Vol] 88.0 mg/dL [facility] Comment on above: <100 mg/dl [id number] 0-129 mg/dl NEAR OR ABOVE [id number] mg/dl BORDERLINE [id number] mg/dl HIGH>190 mg/dl VERY HIGH Cholesterol in VLDL Calc [Ma ss/Vol]on 11-14-2023 Cholesterol in VLDL [Mass/Vol] 10.2 mg/dL [facility] Eosinophils/100 WBC Auto (Bl d)on 11-14-2023 Eosinophils/100 WBC (Bld) 11.7 % 0.9-7.0 [facility] Erythrocyte distribution wid th Auto (RBC) [Ratio]on 11-14-2023 Erythrocyte distribution width (RBC) [Ratio] 12.0 % 11.0-15.0 [facility] Estimated glomerular filtrat ion rate (GFR) non- Americanon 11-14-2023 GFR/1.73 sq M.predicted among non-blacks MDRD (S/P/Bld) [Vol rate/Area] mL/min/{1.73_m2} >=60 [facility] Globulin Calc (S) [Mass/Vol] on 11-14-2023 Globulin (S) [Mass/Vol] 3.4 g/dL F [facility] Hematocrit Auto (Bld) [Volum e fraction]on 11-14-2023 Hematocrit (Bld) [Volume fraction] 39.6 % 36.0-48.0 [facility] Hemoglobin [Mass/volume] in Bloodon 11-14-2023 Hemoglobin (Bld) [Mass/Vol] 13.2 g/dL 12.0-16.0 [facility] Laboratory - Chemistry and C hemistry - challengeon 11-14-2023 Albumin [Mass/Vol] 3.4 g/dL 3.4-5.0 [facility] ALP [Catalytic activity/Vol] 51 U/L 46-116 [facility] ALT [Catalytic activity/Vol] 16 U/L 14-59 [facility] AST [Catalytic activity/Vol] 21 U/L 15-37 [facility] Bilirubin [Mass/Vol] 1.1 mg/dL 0.2-1.0 [facility] Calcium [Mass/Vol] 8.7 mg/dL 8.5-10.1 [facility] Chloride [Moles/Vol] 103 mmol/L 98-107 [facility] Cholesterol [Mass/Vol] 177 mg/dL <=200 [facility] Cholesterol in HDL [Mass/Vol] 79 mg/dL 40-60 [facility] Comment on above: > or =60 mg/dl - LOW CARDIOVASCULAR RISK<40 mg/dl - HIGH CARDIOVASCULAR RISK CO2 [Moles/Vol] 27.1 mmol/L 21.0-32.0 [facility] Creatinine [Mass/Vol] 0.81 mg/dL 0.55-1.02 [facility] GFR/1.73 sq M.predicted MDRD (S/P/Bld) [Vol rate/Area] mL/min/{1.73_m2} >=60 [facility] Glucose [Mass/Vol] 92 mg/dL 74-106 [facility] Potassium [Moles/Vol] 4.4 mmol/L 3.5-5.1 [facility] Protein [Mass/Vol] 6.8 g/dL 6.4-8.2 [facility] Sodium [Moles/Vol] 137 mmol/L 136-145 [facility] Triglyceride [Mass/Vol] 51 mg/dL <=150 F [facility] Urea nitrogen [Mass/Vol] 21.0 mg/dL 7.0-18.0 [facility] Urea nitrogen/Creatinine [Mass ratio] 25.9 mg/mg [facility] Laboratory - Hematology and Cell countson 11-14-2023 Immature granulocytes/100 WBC (Bld) 0.2 % 0.0-0.5 [facility] Leukocytes [#/volume] correc stephanie for nucleated erythrocytes in Blood by Automated counon 11-14-2023 WBC corrected for nucl RBC Auto (Bld) [#/Vol] 8.4 10 3/uL 4.0-11.0 [facility] Lymphocytes Auto (Bld) [#/Vo l]on 11-14-2023 Lymphocytes (Bld) [#/Vol] 1.7 10 3/uL 1.2-3.8 [facility] Lymphocytes/100 WBC Auto (Bl d)on 11-14-2023 Lymphocytes/100 WBC (Bld) 20.5 % 20.5-60.0 [facility] MCH Auto (RBC) [Entitic mass ]on 11-14-2023 MCH (RBC) [Entitic mass] 31.7 pg 26.7-34.0 [facility] MCHC Auto (RBC) [Mass/Vol]on 11-14-2023 MCHC (RBC) [Mass/Vol] 33.3 g/dL 29.9-35.2 [facility] MCV Auto (RBC) [Entitic vol] on 11-14-2023 MCV (RBC) [Entitic vol] 95.2 fL 81.0-99.0 F [facility] Monocytes Auto (Bld) [#/Vol] on 11-14-2023 Monocytes (Bld) [#/Vol] 0.5 10 3/uL 0.3-0.8 [facility] Monocytes/100 WBC Auto (Bld) on 11-14-2023 Monocytes/100 WBC (Bld) 5.5 % 1.7-12.0 F [facility] Neutrophils Auto (Bld) [#/Vo l]on 11-14-2023 Neutrophils (Bld) [#/Vol] 5.2 10 3/uL 1.4-6.5 [facility] Neutrophils/100 WBC Auto (Bl d)on 11-14-2023 Neutrophils/100 WBC (Bld) 61.3 % 43.0-75.0 [facility] No Panel Informationon 11-13 Eosinophils # (Auto) 1.0 10 3/uL 0.0-0.7 [facility] Immature Granulocyte # (Auto) 0.02 10 3/uL 0.00-0.03 [facility] Platelet mean volume Auto (B ld) [Entitic vol]on 11-14-2023 Platelet mean volume (Bld) [Entitic vol] 10.3 fL 9.5-13.5 [facility] Platelets Auto (Bld) [#/Vol] on 11-14-2023 Platelets (Bld) [#/Vol] 235 10 3/uL 150-450 [facility] RBC Auto (Bld) [#/Vol]on RBC (Bld) [#/Vol] 4.16 10 6/uL 4.20-5.40 [facility] Serum or plasma albumin/glob ulin mass ratioon 11-14-2023 Albumin/Globulin [Mass ratio] 1.0 {ratio} [facility] Serum or plasma anion gap de terminationon 11-14-2023 Anion gap [Moles/Vol] 11.3 mmol/L [facility] Serum or plasma total choles terol/high density lipoprotein (HDL) cholesterol mass abdirashid 11-14-2023 Cholesterol.total/Shelley sterol in HDL [Mass ratio] 2.2 {ratio} [facility] Comment on above: 3.3 - 4.4 LOW RISK4. 4 - 7.1 AVERAGE RISK7.1 - 11.0 MODERATE RISK>11.0 HIGH RISK Glucose mean value [Mass/vol ume] in Blood Estimated from glycated hemoglobinon 11-07-2023 Average glucose Estimated from glycated hemoglobin (Bld) [Mass/Vol] 105 mg/dL [facility] Laboratory - Chemistry and C hemistry - challengeon 11-07-2023 Ferritin [Mass/Vol] 35.0 ng/mL 8.0-252.0 [facility] Free T4 [Mass/Vol] 0.96 ng/dL 0.76-1.46 [facility] Glucose [Mass/Vol] 88 mg/dL 74-106 [facility] T4 [Mass/Vol] 7.70 ug/dL 4.80-13.90 [facility] TSH Qn 2.126 m[IU]/L 0.358-3.74 0 [facility] Laboratory - Hematology and Cell countson 11-07-2023 HbA1c (Bld) [Mass fraction] 5.3 % 4.5-6.2 [facility] Comment on above: ADA RECOMMENDED LIMI T 4.0 - 6.0ADA THERAPEUTIC TARGET < 7.0ACTION SUGGESTED> 7.0 No Panel Informationon 11-06 25-Hydroxy Vitamin D Total 29.1 ng/mL [facility] Comment on above: <20 ng/mL Vit D defi cient20-<30 ng/mL Vit D [id number] ng/mL Vit D sufficient>100 ng/mL Potential Toxicity C-Peptide 1.4 ng/mL 1.1-4.4 [facility] Comment on above: C-Peptide reference interval is for fasting patients. C-Peptide reference interval is for fasting patients. Dehydroepiandrosterone Sulfate 79.4 ug/dL 41.2-243.7 [facility] Free Cortisol, Dialysis, LCMS 0.524 ug/dL . [facility] Comment on above: These tests were dev eloped and their performancecharacteristics determined by [facility]. They have not beencleared or approved by the Food and Drug Administration.Reference Range:8 AM 0.10 - 1.204 PM 0.042 - 0.872Performed at: [facility] [id number] [place], [place] [id number] Director: Shiv Padron MD, Phone: [phone] Free Triiodothyronine 2.33 pg/mL 2.18-3.98 [facility] Reverse Triiodothyronine (T3) 16.0 ng/dL 9.2-24.1 [facility] Comment on above: This test was develo ped and its performance characteristicsdetermined by [facility]. It has not been cleared orapproved by the Food and Drug Administration.Performed at: [facility] [employer] [id number] Director: Jennifer Ruff MD, Phone: [phone] Sex Hormone Binding Globulin 107.0 nmol/L 17.3-125.0 [facility] Comment on above: Performed at: [email or web address] [address] [id number] Director: Mark Gallardo PhD, Phone: [phone] Performed at: [email or web address] [address] [id number] Director: Mark Gallardo PhD, Phone: [phone] Testosterone Level 15 ng/dL 4-50 [facility] Serotonin (P) [Mass/Vol]on 0 11-07-2023 Serotonin 170 ng/mL 31-207 [facility] Comment on above: This test was develo ped and its performance characteristicsdetermined by [facility]. It has not been cleared orapproved by the Food and Drug Administration.Performed at: [facility] [employer] [id number] Director: Jennifer Ruff MD, Phone: [phone] This test was develo ped and its performance characteristicsdetermined by [facility]. It has not been cleared orapproved by the Food and Drug Administration.Performed at: [facility] [address] [place], [place] [id number] Director: Jennifer Ruff MD, Phone: [phone] Serum estrone measurementon 11-07-2023 E1 [Mass/Vol] 106 pg/mL . [facility] Comment on above: Range Adult (Premeno pausal) 27 - 231 Menstrual Cycle (1-10 days) 19 - 149 Menstrual Cycle (11-20 days) 32 - 176 Menstrual Cycle (21-30 days) 37 - 200 Adult (Postmenopausal) 0 - 125Performed at: - [facility] [address] [id number] Director: Jennifer Ruff MD, Phone: [phone] Serum or plasma estradiol (E 2) measurement (mass/volume)on 11-07-2023 E2 [Mass/Vol] 238.0 pg/mL . [facility] Comment on above: Adult Female Range F ollicular phase 12.5 - 166.0 Ovulation phase 85.8 - 498.0 Luteal phase 43.8 - 211.0 Postmenopausal <6.0 - 54.7 1st trimester 215.0 - >4300.0Roche ECLIA methodology Serum or plasma insulin hanna urement (units/volume)on 11-07-2023 Insulin Qn 3.5 u[iU]/mL 2.6-24.9 [facility] Comment on above: Performed at: [address] [id number] Director: Mark Gallardo PhD, Phone: [phone] Serum or plasma progesterone measurement (mass/volume)on 11-07-2023 Progesterone [Mass/Vol] 0.5 ng/mL . F [facility] Comment on above: Follicular phase 0.1 - 0.9 Luteal phase 1.8 - 23.9 Ovulation phase 0.1 - 12.0 First trimester 11.0 - 44.3 Second trimester 25.4 - 83.3 Third trimester 58.7 - 214.0 Postmenopausal 0.0 - 0.1 TPO Ab Qnon 11-07-2023 Thyroid Peroxidase Antibodies 382 [IU]/mL 0-34 [facility] Testosterone Free [Mass/Vol] on 11-07-2023 Free Testosterone 0.8 pg/mL 0.0-4.2 [facility] Comment on above: Performed at: [facility] [address] [id number] Director: Mark Gallardo PhD, Phone: [phone] at: [facility] [id number] Director: Jennifer Ruff MD, Phone: [phone] Performed at: [facility] [id number] Director: Mark Gallardo PhD, Phone: [phone] at: [address] [address] [id number] Director: Jennifer Ruff MD, Phone: [phone] Thyroglobulin Ab Qnon 2023 Anti-Thyroglobulin Antibody 933.8 [IU]/mL 0.0-0.9 [facility] Comment on above: Thyroglobulin Antibo dy measured by Radha AmiatoMethodologyIt should be noted that the presence of thyroglobulinantibodies may not be pathogenic nor diagnostic, especiallyat very low levels. The assay streetcar starter has found thatfour percent of individuals without evidence of thyroiddisease or autoimmunity will have positive TgAb levels upto 4 IU/mL.Performed at: [facility] [id number] Director: Mark Glalardo PhD, Phone: [phone] Thyroglobulin Antibo dy measured by Radha Direct SittersodologyIt should be noted that the presence of thyroglobulinantibodies may not be pathogenic nor diagnostic, especiallyat very low levels. The assay streetcar starter has found thatfour percent of individuals without evidence of thyroiddisease or autoimmunity will have positive TgAb levels upto 4 IU/mL.Performed at: [facility] [id number] Director: Mark Gallardo PhD, Phone: [phone] Thyroglobulin Antibo dy measured by Affinity SolutionsodologyIt should be noted that the presence of thyroglobulinantibodies may not be pathogenic nor diagnostic, especiallyat very low levels. The assay streetcar starter has found thatfour percent of individuals without evidence of thyroiddisease or autoimmunity will have positive TgAb levels upto 4 IU/mL.Performed at: [email or web address] [id number] [place], [place] [id number] Director: Mark Gallardo PhD, Phone: [phone] Thyroglobulin [Mass/volume] in Serum or Plasmaon 11-07-2023 Thyroglobulin [Mass/Vol] 9.4 ng/mL . [facility] Comment on above: This test was develo ped and its performance characteristicsdetermined by [employer]. It has not been cleared or approvedby [...] assay quantitation limit is 2.0 ng/mL.Performed at: [facility] [id number] [place], [place] [id number] Director: Shiv Padron MD, Phone: [phone] HCG ( test) IA.jaylini d Ql (U)on 10-11-2023 HCG ( test) Ql (U) Negative NEGATIVE [facility] Shahab 10-11-2023 L Specimen: [id number] Received: 10/11/23 Status: KATIE Quinn Num: [id number] Spec Type: Surgical Subm Dr: Anup Pearl MD FACS Tissues: A Stomach - Biopsy/Polyp (ANTRUM BX) Procedures: HE/2, Gross/Micro L4 Age/ Patient Sex Location Account Attending Physician Ioana Marie 52/F LABELL [id number] Anup Pearl MD FACS SPEC NUM: [id number] RECD: 10/11/23 STATUS: JHONWade QUINN NUM: [id number] CARYN: 10/11/[address]: Anup Pearl MD FACS ENTERED: 10/11/[address]: Prerna Lee SPEC TYPE: Surgical DEPT: [...] Antral ulcer, small hiatal hernia CPT Codes 21525, 30592 Specimen: [id number] Received: 10/11/23 Status: KATIE Kai Num: [id number] Spec Type: Surgical Subm Dr: Anup Pearl MD FACS Tissues: A Stomach - Biopsy/Polyp (ANTRUM BX) Procedures: BUD/2, Gross/Micro L4 Patient: AníbalmaryIoana [id number] (Continued) Signed (signature on file) Joshua Marshall MD 10/12/23 1548 Normal [facility] MG MAMM SCREEN 3D CHRISTAL CADon 11-11-2022 MG MAMM SCREEN 3D CHRISTAL CAD Patient: IOANA MARIE Exam Date: 11/11/2022 : 1970 Gender:F Ordering : DR TRISTON VELAZQUEZ . Admission #: [id number] Family : Order #: [id number] CLICK HERE TO VIEW EXAM RADIOLOGY REPORT [...] breast cancer at age 69. LOCATION: [facility] BREAST COMPOSITION: Extremely dense, which lowers the [...] MD on 11/11/2022 at 13:58 Normal [facility] CBC AUTO DIFFon 11-01-2022 BASO # 0.1 103/ul Normal 0.0-0.1 [facility] Comment on above: Performed By: #### C BC #### [facility] [address] [place] [address] Dr. Edelmira Hirsch Basophils/100 WBC (Bld) 1.0 % Normal 0.2-2.0 [facility] Comment on above: Performed By: #### C BC #### [facility] [address] [place] [address] Dr. Edelmira Hirsch EO # 1.0 103/ul Critically high 0.0-0.7 [facility] Comment on above: Performed By: #### C BC #### [facility] [address] [place] [address] Dr. Edelmira Hirsch Eosinophils/100 WBC (Bld) 13.9 % Critically high 0.9-7.0 [facility] Comment on above: Performed By: #### C BC #### [facility] [address] [place] [address] Dr. Edelmira Hirsch Erythrocyte distribution width (RBC) [Ratio] 12.2 % Normal 11.0-15.0 [facility] Comment on above: Performed By: #### C BC #### [facility] [address] [place] [address] Dr. Edelmira Hirsch Hematocrit (Bld) [Volume fraction] 40.5 % Normal 36.0-48.0 [facility] Comment on above: Performed By: #### C BC #### [facility] [address] [place] [address] Dr. Edelmira Hirsch Hemoglobin (Bld) [Mass/Vol] 13.8 g/dL Normal 12.0-16.0 [facility] Comment on above: Performed By: #### C BC #### [facility] [address] [place] [address] Dr. Edelmira Hirsch IG # 0.02 10e3/ul Normal 0.00-0.03 [facility] Comment on above: Performed By: #### C BC #### [facility] [address] [place] [address] Dr. Edelmira Hirsch IG % 0.3 % Normal 0.0-0.5 [facility] Comment on above: Performed By: #### C BC #### [facility] [address] [place] [address] Dr. Edelmira Hirsch LYMPH # 1.8 103/ul Normal 1.2-3.8 [facility] Comment on above: Performed By: #### C BC #### [facility] [address] [place] [address] Dr. Edelmira Hirsch Lymphocytes/100 WBC (Bld) 24.6 % Normal 20.5-60.0 [facility] Comment on above: Performed By: #### C BC #### [facility] [address] [place] [address] Dr. Edelmira Hirsch MANUAL DIFF REQ NO Normal [facility] Comment on above: Performed By: #### C BC #### [facility] [address] [place] [address] Dr. Edelmira Hirsch MCH (RBC) [Entitic mass] 32.2 pg Normal 26.7-34.0 [facility] Comment on above: Performed By: #### C BC #### [facility] [address] [place] [address] Dr. Edelmira Hirsch MCHC (RBC) [Mass/Vol] 34.1 g/dL Normal 29.9-35.2 [facility] Comment on above: Performed By: #### C BC #### [facility] [address] [place] [address] Dr. Edelmira Hirsch MCV (RBC) [Entitic vol] 94.6 fL Normal 81.0-99.0 [facility] Comment on above: Performed By: #### C BC #### [facility] [address] [place] [address] Dr. Edelmira Hirsch MONO # 0.5 103/ul Normal 0.3-0.8 [facility] Comment on above: Performed By: #### C BC #### [facility] [address] [place] [address] Dr. Edelmira Hirsch Monocytes/100 WBC (Bld) 6.5 % Normal 1.7-12.0 [facility] Comment on above: Performed By: #### C BC #### [facility] [address] [place] [address] Dr. Edelmira Hirsch NEUT # 3.8 103/ul Normal 1.4-6.5 [facility] Comment on above: Performed By: #### C BC #### [facility] [address] [place] [address] Dr. Edelmira Hirsch Neutrophils/100 WBC (Bld) 53.7 % Normal 43.0-75.0 [facility] Comment on above: Performed By: #### C BC #### [facility] [address] [place] [address] Dr. Edelmira Hirsch Platelet mean volume (Bld) [Entitic vol] 10.0 fL Normal 9.5-13.5 [facility] Comment on above: Performed By: #### C BC #### [facility] [address] [place] [address] Dr. Edelmira Hirsch PLT 276 103/ul Normal 150-450 [facility] Comment on above: Performed By: #### C BC #### [facility] [address] [place] [address] Dr. Edelmira Hirsch RBC 4.28 106/ul Normal 4.20-5.40 [facility] Comment on above: Performed By: #### C BC #### [facility] [address] [place] [address] Dr. Edelmira Hirsch WBC 7.1 103/ul Normal 4.0-11.0 [facility] Comment on above: Performed By: #### C BC #### [facility] [address] [place] [address] Dr. Edelmira Hirsch GLYCOHEMOGLOBIN A1Con 2022 ADA RECOMMENDATION SEE BELOW Normal [facility] Comment on above: Result Comment: ADA RECOMMENDED LIMIT 4.0 - 6.0 ADA THERAPEUTIC TARGET < 7.0 ACTION SUGGESTED > 7.0 Performed By: #### A 1C #### [facility] [address] [place] [address] Dr. Edelmira Hirsch Glucose [Mass/Vol] 100 mg/dL Normal [facility] Comment on above: Performed By: #### A 1C #### [facility] [address] [address] [address] Edelmira Hirsch HbA1c (Bld) [Mass fraction] 5.1 % Normal 4.5-6.2 [facility] Comment on above: Performed By: #### A 1C #### [facility] [address] [address] [address] Edelmira Hirsch LIPID PROFILEon 11-01-2022 CHOL-HDL RATIO NORM SEE BELOW Normal [facility] Comment on above: Result Comment: 3.3 - 4.4 LOW RISK 4.4 - 7.1 AVERAGE RISK 7.1 - 11.0 MODERATE RISK >11.0 HIGH RISK Performed By: #### L IPID, CMP, TSH #### [facility] [address] [place] [address] Dr. Edelmira Hirsch Cholesterol [Mass/Vol] 164 mg/dL Normal <=200 Th [facility] Comment on above: Performed By: #### L IPID, CMP, TSH #### [facility] [address] [address] [address] Edelmira Hirsch Cholesterol in HDL [Mass/Vol] 80 mg/dL Critically high 40-60 [facility] Comment on above: Performed By: #### L IPID, CMP, TSH #### [facility] [address] [place] [address] Dr. Edelmira Hirsch Cholesterol in LDL [Mass/Vol] 76.8 mg/dL Normal [facility] Comment on above: Performed By: #### L IPID, CMP, TSH #### [facility] [address] [address] [address] Edelmira Hirsch Cholesterol.total/Shelley sterol in HDL [Mass ratio] 2.1 {ratio} Normal [facility] Comment on above: Performed By: #### L IPID, CMP, TSH #### [facility] [address] [address] [address] Edelmira Hirsch HDL NORMAL > or = 60 mg/dl - LO W CARDIOVASCULAR RISK <40 mg/dl - HIGH CARDIOVASCULAR RISK Normal [facility] Comment on above: Performed By: #### L IPID, CMP, TSH #### [facility] [address] [place] [address] Dr. Edelmira Hirsch LDL CALC NORMAL SEE BELOW Normal [facility] Comment on above: Result Comment: <100 mg/dl OPTIMAL 100 - 129 mg/dl NEAR OR ABOVE OPTIMAL 130 - 159 mg/dl BORDERLINE HIGH 160 - 189 mg/dl HIGH >190 mg/dl VERY HIGH Performed By: #### L IPID, CMP, TSH #### [facility] [address] [address] [address] Edelmira Hirsch Triglyceride [Mass/Vol] 36 mg/dL Normal <=150 [facility] Comment on above: Performed By: #### L IPID, CMP, TSH #### [facility] [address] [place] [address] Dr. Edelmira Hirsch VLDL CALC 7.2 mg/dL Normal [facility] Comment on above: Performed By: #### L IPID, CMP, TSH #### [facility] [address] [place] [address] Dr. Edelmira Hirsch PROF 14(COMP METB)on 023 Albumin [Mass/Vol] 3.5 g/dL Normal 3.4-5.0 [facility] Comment on above: Performed By: #### L IPID, CMP, TSH #### [facility] [address] [place] [address] Dr. Edelmira Hirsch Albumin/Globulin [Mass ratio] 0.9 {ratio} Normal [facility] Comment on above: Performed By: #### L IPID, CMP, TSH #### [facility] [address] [place] [address] Dr. Edelmira Hirsch ALP [Catalytic activity/Vol] 51 U/L Normal 46-116 [facility] Comment on above: Performed By: #### L IPID, CMP, TSH #### [facility] [address] [place] [address] Dr. Edelmira Hirsch ALT [Catalytic activity/Vol] 23 U/L Normal 14-59 [facility] Comment on above: Performed By: #### L IPID, CMP, TSH #### [facility] [address] [address] [address] Edelmira Hirsch Anion gap [Moles/Vol] 11.2 mmol/L Normal Th e [facility] Comment on above: Performed By: #### L IPID, CMP, TSH #### [facility] [address] [place] [address] Dr. Edelmira Hirsch AST [Catalytic activity/Vol] 18 U/L Normal 15-37 [facility] Comment on above: Performed By: #### L IPID, CMP, TSH #### [facility] [address] [place] [address] Dr. Edelmira Hirsch Bilirubin [Mass/Vol] 0.9 mg/dL Normal 0.2-1.0 [facility] Comment on above: Performed By: #### L IPID, CMP, TSH #### [facility] [address] [place] [address] Dr. Edelmira Hirsch Calcium [Mass/Vol] 9.4 mg/dL Normal 8.5-10.1 [facility] Comment on above: Performed By: #### L IPID, CMP, TSH #### [facility] [address] [place] [address] Dr. Edelmira Hirsch Chloride [Moles/Vol] 104 mmol/L Normal 98-107 [facility] Comment on above: Performed By: #### L IPID, CMP, TSH #### [facility] [address] [place] [address] Dr. Edelmira Hirsch CO2 [Moles/Vol] 29.5 mmol/L Normal 21.0-32.0 [facility] Comment on above: Performed By: #### L IPID, CMP, TSH #### [facility] [address] [place] [address] Dr. Edelmira Hirsch Creatinine [Mass/Vol] 0.86 mg/dL Normal 0.55-1.02 [facility] Comment on above: Performed By: #### L IPID, CMP, TSH #### [facility] [address] [place] [address] Dr. Edelmira Hirsch EGFR-AF BELARUSIAN >60 Normal >=60 [facility] Comment on above: Performed By: #### L IPID, CMP, TSH #### [facility] [address] [address] [address] Edelmira Hirsch EGFR-NON AF BELARUSIAN >60 Normal >=60 [facility] Comment on above: Performed By: #### L IPID, CMP, TSH #### [facility] [address] [address] [address] Edelmira Hirsch Globulin (S) [Mass/Vol] 3.7 g/dL Normal [facility] Comment on above: Performed By: #### L IPID, CMP, TSH #### [facility] [address] [address] [address] Edelmira Hirsch Glucose [Mass/Vol] 97 mg/dL Normal 74-106 [facility] Comment on above: Performed By: #### L IPID, CMP, TSH #### [facility] [address] [place] [address] Dr. Edelmira Hirsch Potassium [Moles/Vol] 4.7 mmol/L Normal 3.5-5.1 [facility] Comment on above: Performed By: #### L IPID, CMP, TSH #### [facility] [address] [address] [address] Edelmira Hirsch Protein [Mass/Vol] 7.2 g/dL Normal 6.4-8.2 [facility] Comment on above: Performed By: #### L IPID, CMP, TSH #### [facility] [address] [address] [address] Edelmira Hirsch Sodium [Moles/Vol] 140 mmol/L Normal 136-145 [facility] Comment on above: Performed By: #### L IPID, CMP, TSH #### [facility] [address] [address] [address] Edelmira Hirsch Urea nitrogen [Mass/Vol] 14.0 mg/dL Normal 7.0-18.0 [facility] Comment on above: Performed By: #### L IPID, CMP, TSH #### [facility] [address] [address] [address] Edelmira Hirsch Urea nitrogen/Creatinine [Mass ratio] 16.3 mg/mg Normal [facility] Comment on above: Performed By: #### L IPID, CMP, TSH #### [facility] [address] [place] [address] Dr. Edelmira Hirsch TSHon 11-01-2022 TSH 2.540 uIU/mL Normal 0.358-3.74 0 [facility] Comment on above: Performed By: #### L IPID, CMP, TSH #### [facility] [address] [place] [address] Dr. Edelmira Hirsch PAP ACOG PANEL 2: 30 to 65on 06-27-2022 . . Normal [facility] Comment on above: Result Comment: Perf ormed at: WB Performed By: #### 4 [id number] #### [facility] [address] [place] [address] Dr. Edelmira Hirshc Age Gdln ACOG Testing - Normal [facility] Comment on above: Performed By: #### 4 [id number] #### [facility] [address] [place] [address] Dr. Edelmira Hirsch DIAGNOSIS: Comment Normal [facility] Comment on above: Result Comment: NEGA TIVE FOR INTRAEPITHELIAL LESION OR MALIGNANCY. Performed at: WB Performed By: #### 4 [id number] #### [facility] [address] [place] [address] Dr. Edelmira Hirsch HPV Aptima Negative Normal Negative [facility] Comment on above: Result Comment: This nucleic acid amplification test detects fourteen high-risk HPV types (16,18,31,33,35,39,45,51,52,56,58,59,66,68) without differentiation. Performed at: =G Performed By: #### 4 [id number] #### [facility] [address] [place] [address] Dr. Edelmira Hirsch HPV Genotype Reflex Comment Normal [facility] Comment on above: Result Comment: Crit eria not met, HPV Genotype not performed. Performed at: WB Performed By: #### 4 [id number] #### [facility] [address] [place] [address] Dr. Edelmira Hirsch Methodology: Comment Normal [facility] Comment on above: Result Comment: This liquid based ThinPrep(R) pap test was screened with the use of an image guided system. Performed at: WB Performed By: #### 4 [id number] #### [facility] [address] [place] [address] Dr. Edelmira Hirsch Note: Comment [facility] Comment on above: Result Comment: The Pap smear is a screening test designed to aid in the detection of premalignant and malignant conditions of the uterine cervix. It is not a diagnostic procedure and should not be used as the sole means of detecting cervical cancer. Both false-positive and false-negative reports do occur. . Performed at: WB Performed By: #### 4 [id number] #### [facility] [address] [place] [address] Dr. Edelmira Hirsch Performed by: Comment [facility] Comment on above: Result Comment: Aury Andrade, Melt Supervisor (ASCP) Performed at: WB Performed By: #### 4 [id number] #### [facility] [address] [place] [address] Dr. Edelmira Hirsch Specimen adequacy: Comment [facility] Comment on above: Result Comment: Sati sfactory for evaluation. Endocervical and/or squamous metaplastic cells (endocervical component) are present. Performed at: WB Performed By: #### 4 [id number] #### [facility] [address] [place] [address] Dr. Edelmira Hirsch Nicotine and Metabolite, Harlan nt LCon 04-04-2021 Cotinine LC <1.0 Invalid Interpretation Code [facility] Comment on above: Result Comment: This test was developed and its performance characteristics determined by [employer]. It has not been cleared or approved by the Food and Drug Administration. Cotinine levels greater than 20.0 are consistent with the use of tobacco or tobacco cessation products. Performed At: [address] [id number] Speedy Rodriguez MD Ph:[phone] Performed By: #### 1 [id number], [id number], [id number], [id number], [id number], [id number] #### [facility] (DEFAULT) [address] [place] [address] Nicotine LC <1.0 Invalid Interpretation Code [facility] Comment on above: Result Comment: This test was developed and its performance characteristics determined by [employer]. It has not been cleared or approved by the Food and Drug Administration. Nicotine levels greater than 2.0 are consistent with the use of tobacco or tobacco cessation products. Performed By: #### 1 [id number], [id number], [id number], [id number], [id number], [id number] #### [facility] (DEFAULT) [address] [place] [address] .Auto Diff 1on 03-30-2021 Auto Gilmer % 7 % Normal 06-30 [facility] Comment on above: Performed By: #### 1 [id number], [id number], [id number], [id number], [id number], [id number] #### [facility] (DEFAULT) [address] [place] [address] Baso Abs# 0.0 x10 Normal 0.0-0.2 [facility] Comment on above: Performed By: #### 1 [id number], [id number], [id number], [id number], [id number], 5207079 #### [facility] (DEFAULT) [address] [place] [address] Basophils/100 WBC (Bld) 0.4 % Normal 0.2-2.0 [facility] Comment on above: Performed By: #### 1 [id number], [id number], [id number], [id number], 73927583, 0993527 #### [facility] (DEFAULT) [address] [place] [address] Eos Abs# 1.0 x10 High 0.0-0.4 [facility] Comment on above: Performed By: #### 1 [id number], [id number], [id number], [id number], 33774934, 2021565 #### [facility] (DEFAULT) [address] [place] [address] Eosinophils/100 WBC (Bld) 13.5 % High 0.9-4.0 [facility] Comment on above: Performed By: #### 1 [id number], [id number], [id number], [id number], 92705145, 1393315 #### [facility] (DEFAULT) [address] [place] [address] Lymph Abs# 2.1 x10 Normal 1.3-2.9 [facility] Comment on above: Performed By: #### 1 [id number], [id number], [id number], [id number], 33623979, 6546437 #### [facility] (DEFAULT) [address] [place] [address] Lymphocytes/100 WBC (Bld) 29 % Normal 14-48 [facility] Comment on above: Performed By: #### 1 [id number], [id number], [id number], [id number], 96861566, 6265344 #### [facility] (DEFAULT) [address] [place] [address] Gilmer Abs# 0.5 x10 Normal 0.0-0.8 [facility] Comment on above: Performed By: #### 1 [id number], [id number], [id number], [id number], 50706474, 0367617 #### [facility] (DEFAULT) [address] [place] [address] Neut Abs# 3.5 x10 Normal 1.5-9.2 [facility] Comment on above: Performed By: #### 1 [id number], [id number], [id number], [id number], 66623573, 5394173 #### [facility] (DEFAULT) [address] [place] [address] Neutrophils/100 WBC (Bld) 50 % Normal 44-88 [facility] Comment on above: Performed By: #### 1 [id number], [id number], [id number], [id number], 42599070, 0953059 #### [facility] (DEFAULT) [address] [place] [address] CBC w/ Auto Diffon 1 Erythrocyte distribution width (RBC) [Ratio] 13.2 % Normal 11.5-15.0 [facility] Comment on above: Performed By: #### 1 [id number], [id number], [id number], [id number], 39462593, 2327431 #### [facility] (DEFAULT) [address] [place] [address] Hematocrit (Bld) [Volume fraction] 38.4 % Normal 33.7-40.4 [facility] Comment on above: Performed By: #### 1 1985962, 0830713426, 5754679487, 2551086073, 55901993, 4549126 #### [facility] (DEFAULT) [address] [place] [address] Hemoglobin (Bld) [Mass/Vol] 12.4 g/dL Normal 11.3-15.9 [facility] Comment on above: Performed By: #### 1 3247190, 5368801199, 7680646798, 0151136731, 57982943, 5341006 #### [facility] (DEFAULT) [address] [place] [address] Instr WBC 7.1 x10 Invalid Interpretation Code [facility] Comment on above: Performed By: #### 1 6173271, 3246127033, 9756439305, 4728542927, 44619245, 7440776 #### [facility] (DEFAULT) [address] [place] [address] 04487 Man Diff? Auto Normal [facility] Comment on above: Performed By: #### 1 2741174, 2074090661, 4114137306, 2091841695, 02759807, 4731584 #### [facility] (DEFAULT) [address] [place] [address] 90276 MCH (RBC) [Entitic mass] 30 pg Normal 24-34 [facility] Comment on above: Performed By: #### 1 7207116, 6897849360, 4813768642, 4060819050, 11333070, 0498994 #### [facility] (DEFAULT) [address] [place] [address] 95204 MCHC (RBC) [Mass/Vol] 32 g/dL Normal 26-37 [facility] Comment on above: Performed By: #### 1 7739311, 8403450494, 8067503600, 7487014935, 32707262, 4217498 #### [facility] (DEFAULT) [address] [place] [address] 28106 MCV (RBC) [Entitic vol] 94 fL Normal 81-100 [facility] Comment on above: Performed By: #### 1 1130125, 1219852898, 1746282390, 7842360864, 74985967, 9311350 #### [facility] (DEFAULT) [address] [place] [address] 29252 Platelet 265 x10 Normal 138-427 [facility] Comment on above: Performed By: #### 1 4191226, 8037577766, 5851455134, 7099608635, 69657938, 5960935 #### [facility] (DEFAULT) [address] [place] [address] 66956 Platelet mean volume (Bld) [Entitic vol] 10.3 fL High 6.3-10.2 [facility] Comment on above: Performed By: #### 1 2467982, 6037962661, 3763646937, 9665001059, 92136943, 7478002 #### [facility] (DEFAULT) [address] [place] [address] 17663 RBC 4.10 x10 Normal 3.70-5.30 [facility] Comment on above: Performed By: #### 1 3695110, 7816525403, 5363086637, 3216071556, 48808425, 2868504 #### [facility] (DEFAULT) [address] [place] [address] 14272 WBC 7.1 x10 Normal 3.5-10.5 [facility] Comment on above: Performed By: #### 1 1302854, 7278202851, 3485461311, 6668805409, 95539000, 9920484 #### [facility] (DEFAULT) [address] [place] [address] 06836 CMP Standardon 03-30-2021 eGFR Non AA >60 Invalid Interpretation Code [facility] Comment on above: Performed By: #### 1 2371935, 9414550587, 1783007124, 5761330781, 60876618, 7275543 #### [facility] (DEFAULT) [address] [place] [address] eGFR AA >60 Invalid Interpretation Code [facility] Comment on above: Result Comment: Engineering Analyst roddy Kidney disease could be indicated at eGFRs of less than 60 ml/min/1.73m2. Kidney Failure is indicated at less than 15 ml/min/1.73m2 Performed By: #### 1 7586042, 9431401856, 3429603634, 9714953372, 41087881, 5857842 #### [facility] (DEFAULT) [address] [place] [address] Albumin [Mass/Vol] 3.6 g/dL Normal 3.5-5.0 [facility] Comment on above: Performed By: #### 1 3796479, 7741544677, 5504347536, 0269328541, 39959564, 1218952 #### [facility] (DEFAULT) [address] [place] [address] Albumin/Globulin [Mass ratio] 1.1 {ratio} Low 1.4-2.6 [facility] Comment on above: Performed By: #### 1 6139854, 6814496600, 7373981211, 2965977543, 50699899, 1176121 #### [facility] (DEFAULT) [address] [place] [address] Alk Phos 61 IU/L Normal 32-91 [facility] Comment on above: Performed By: #### 1 3457315, 2555254564, 0497598189, 1582566783, 64081474, 4470042 #### [facility] (DEFAULT) [address] [place] [address] ALT [Catalytic activity/Vol] 14.0 U/L Normal 14.0-54.0 [facility] Comment on above: Performed By: #### 1 2761022, 6565836259, 1498523138, 7516353757, 50534659, 1867879 #### [facility] (DEFAULT) [address] [place] [address] 96222 Anion gap [Moles/Vol] 9.0 mmol/L Normal 5.0-19.0 [facility] Comment on above: Performed By: #### 1 5099247, 9732424323, 1880056701, 0434161386, 43021454, 8808906 #### [facility] (DEFAULT) [address] [place] [address] 28137 AST [Catalytic activity/Vol] 21 U/L Normal 15-41 [facility] Comment on above: Performed By: #### 1 4038403, 6333670630, 2500467312, 2773183237, 98592471, 4842124 #### [facility] (DEFAULT) [address] [place] [address] 90620 Bili Total 0.9 mg/dL Normal 0.3-1.2 [facility] Comment on above: Performed By: #### 1 3077311, 5042544243, 2789617520, 9192512565, 62644425, 2338008 #### [facility] (DEFAULT) [address] [place] [address] 29097 Calcium [Mass/Vol] 8.6 mg/dL Low 8.9-10.3 [facility] Comment on above: Performed By: #### 1 4115794, 3949551617, 1883477188, 0750162865, 14229952, 5403073 #### [facility] (DEFAULT) [address] [place] [address] 20076 Chloride [Moles/Vol] 103 mmol/L Normal 101-111 [facility] Comment on above: Performed By: #### 1 4452498, 8711602098, 5678355684, 4852450723, 01220326, 4890210 #### [facility] (DEFAULT) [address] [place] [address] 25059 CO2 [Moles/Vol] 27 mmol/L Normal 21-32 [facility] Comment on above: Performed By: #### 1 0828645, 8658493264, 5154976324, 3527706346, 19266908, 0369702 #### [facility] (DEFAULT) [address] [place] [address] 16661 Creatinine [Mass/Vol] 0.81 mg/dL Normal 0.60-1.30 [facility] Comment on above: Performed By: #### 1 5467282, 2492735656, 4132427679, 3692792771, 00762118, 9595922 #### [facility] (DEFAULT) [address] [place] [address] 87173 Globulin (S) [Mass/Vol] 3.4 g/dL Normal 1.5-4.3 [facility] Comment on above: Performed By: #### 1 6339605, 6788617648, 7690540398, 7102353381, 57821938, 9248011 #### [facility] (DEFAULT) [address] [place] [address] 64263 Glucose [Mass/Vol] 89.0 mg/dL Normal 74.0-118.0 [facility] Comment on above: Performed By: #### 1 7063055, 3054576658, 6070863349, 4083991283, 59655471, 3745679 #### [facility] (DEFAULT) [address] [place] [address] 01528 Osmolality 269 mOsm/L Invalid Interpretation Code [facility] Comment on above: Performed By: #### 1 4790177, 6060612741, 9140063945, 8860423755, 59405225, 7044740 #### [facility] (DEFAULT) [address] [place] [address] 18463 Potassium [Moles/Vol] 4.0 mmol/L Normal 3.6-5.1 [facility] Comment on above: Performed By: #### 1 9109568, 1555044826, 9190248677, 5462835634, 47793153, 8113808 #### [facility] (DEFAULT) [address] [place] [address] 02760 Protein [Mass/Vol] 7.0 g/dL Normal 6.5-8.1 [facility] Comment on above: Performed By: #### 1 4825695, 7064744228, 6424417290, 5585751254, 70863171, 0509736 #### [facility] (DEFAULT) [address] [place] [address] Sodium [Moles/Vol] 135.0 mmol/L Low 136.0-144 . 0 [facility] Comment on above: Performed By: #### 1 2260847, 7233049659, 1943774523, 1551719494, 15899807, 5868089 #### [facility] (DEFAULT) [address] [place] [address] Urea nitrogen [Mass/Vol] 12 mg/dL Normal 8-26 [facility] Comment on above: Performed By: #### 1 7505417, 1480989189, 5855496216, 1861395067, 90593717, 1498149 #### [facility] (DEFAULT) [address] [place] [address] Urea nitrogen/Creatinine [Mass ratio] 15.0 mg/mg Normal 4.6-16.2 [facility] Comment on above: Performed By: #### 1 9333402, 7883510729, 9363073914, 7778969510, 59273282, 1714613 #### [facility] (DEFAULT) [address] [place] [address] HgbA1c Standardon 03-30-2021 .Hb 14.4 Invalid Interpretation Code [facility] Comment on above: Performed By: #### 1 2192142, 2961063490, 2147165984, 9038795849, 11158374, 2628372 #### [facility] (DEFAULT) [address] [place] [address] 80656 .Hgb A1c 0.48 g/dL Invalid Interpretation Code [facility] Comment on above: Performed By: #### 1 3490706, 5515660527, 9520799057, 1041236590, 12565679, 1657062 #### [facility] (DEFAULT) [address] [place] [address] 19947 Glucose [Mass/Vol] 103 mg/dL Invalid Interpretation Code [facility] Comment on above: Performed By: #### 1 3001420, 8656675270, 3875002535, 8012843113, 20242601, 3740554 #### [facility] (DEFAULT) [address] [place] [address] 79417 HbA1c (Bld) [Mass fraction] 5.2 % Normal 4.6-6.2 [facility] Comment on above: Performed By: #### 1 2087280, 2035937658, 6910946038, 5609467028, 36901381, 8377534 #### [facility] (DEFAULT) [address] [place] [address] 91757 Lipid Panel Standardon 03-30 Cholesterol [Mass/Vol] 171.0 mg/dL Normal 66.0-200.0 [facility] Comment on above: Result Comment: Rosalind rable - Less than 200 mg/dL Borderline high risk - 200-239 mg/dL High risk - 240 mg/dL and over. Performed By: #### 1 9378645, 6524385454, 4813308781, 6474422045, 60281067, 2197191 #### [facility] (DEFAULT) [address] [place] [address] 54247 Cholesterol in HDL [Mass/Vol] 64 mg/dL Normal 40-71 [facility] Comment on above: Result Comment: High risk - <40 mg/dL. Performed By: #### 1 2415453, 8066502780, 9169152474, 7944874545, 76385600, 9240695 #### [facility] (DEFAULT) [address] [place] [address] 97883 Cholesterol in LDL [Mass/Vol] 93 mg/dL Normal 1-100 [facility] Comment on above: Result Comment: Opti mal - Less than 100 mg/dL Borderline high risk - 130-159 mg/dL High risk - 160-189 mg/dL. Performed By: #### 1 0024653, 4519347705, 4305487735, 1825299692, 26591576, 4089794 #### [facility] (DEFAULT) [address] [place] [address] 26526 Cholesterol.total/Shelley sterol in HDL [Mass ratio] 2.7 {ratio} Normal 0.0-4.5 [facility] Comment on above: Performed By: #### 1 6585391, 4167073757, 5664579308, 3021189284, 39452973, 1667048 #### [facility] (DEFAULT) [address] [place] [address] 25156 Triglyceride [Mass/Vol] 73.0 mg/dL Normal 0.0-150.0 [facility] Comment on above: Performed By: #### 1 6586745, 3226539367, 3694911783, 1551435490, 47223221, 3505704 #### [facility] (DEFAULT) [address] [place] [address] 09820 VLDL. 15 mg/dL Normal 5-40 [facility] Comment on above: Performed By: #### 1 7935924, 7778671728, 2206728835, 3190456779, 41456776, 3035646 #### [facility] (DEFAULT) [address] [place] [address] 17180 Nicotine and Metabolite, Harlan nt LCon 04-20-2020 Cotinine LC <1.0 Invalid Interpretation Code [facility] Comment on above: Result Comment: This test was developed and its performance characteristics determined by [employer]. It has not been cleared or approved by the Food and Drug Administration. Cotinine levels greater than 20.0 are consistent with the use of tobacco or tobacco cessation products. Performed At: [address] [id number] Speedy Rodriguez MD Ph:[phone] Performed By: #### 1 6287147, 0280155554, 7441024912, 8019307540, 96420693, 3662234 #### [facility] (DEFAULT) [address] [place] [address] 40544 Nicotine LC <1.0 Invalid Interpretation Code [facility] Comment on above: Result Comment: This test was developed and its performance characteristics determined by [employer]. It has not been cleared or approved by the Food and Drug Administration. Nicotine levels greater than 2.0 are consistent with the use of tobacco or tobacco cessation products. Performed By: #### 1 6446884, 0560843599, 7958314975, 6590186213, 48120389, 7952648 #### [facility] (DEFAULT) [address] [place] [address] .Auto Diff 04-10-2020 Auto Gilmer % 8 % Normal 1-12 [facility] Comment on above: Performed By: #### 7 271830, 02900986, 8885840493, 6258462242, 5554628854, 72913122 #### [facility] (DEFAULT) [address] [place] [address] Baso Abs# 0.0 x10 Normal 0.0-0.2 [facility] Comment on above: Performed By: #### 7 529945, 88768168, 3970983679, 7390826158, 0622285355, 63735879 #### [facility] (DEFAULT) [address] [place] [address] Basophils/100 WBC (Bld) 0.6 % Normal 0.2-2.0 [facility] Comment on above: Performed By: #### 7 463724, 60513877, 1342988008, 2916261975, 0553414829, 91981585 #### [facility] (DEFAULT) [address] [place] [address] Eos Abs# 0.7 x10 High 0.0-0.4 [facility] Comment on above: Performed By: #### 7 830057, 55673164, 2439076560, 4535082574, 7236843496, 87878619 #### [facility] (DEFAULT) [address] [place] [address] Eosinophils/100 WBC (Bld) 13.1 % High 0.9-4.0 [facility] Comment on above: Performed By: #### 7 646142, 83236712, 6419233883, 0932095776, 1856200278, 54036026 #### [facility] (DEFAULT) [address] [place] [address] Lymph Abs# 1.8 x10 Normal 1.3-2.9 [facility] Comment on above: Performed By: #### 7 000350, 78277944, 5511034465, 0567172877, 8137347912, 15441993 #### [facility] (DEFAULT) [address] [place] [address] Lymphocytes/100 WBC (Bld) 33 % Normal 14-48 [facility] Comment on above: Performed By: #### 7 357069, 67244972, 3931607668, 7266144661, 8130117004, 29173954 #### [facility] (DEFAULT) [address] [place] [address] Gilmer Abs# 0.4 x10 Normal 0.0-0.8 [facility] Comment on above: Performed By: #### 7 050531, 35040362, 7679797353, 0166447741, 3517201374, 24847534 #### [facility] (DEFAULT) [address] [place] [address] Neut Abs# 2.4 x10 Normal 1.5-9.2 [facility] Comment on above: Performed By: #### 7 088155, 93766174, 5179227900, 3736804954, 5244743880, 38079343 #### [facility] (DEFAULT) [address] [place] [address] Neutrophils/100 WBC (Bld) 45 % Normal 44-88 [facility] Comment on above: Performed By: #### 7 874782, 54553704, 5969616226, 7534714827, 5070813320, 41204130 #### [facility] (DEFAULT) [address] [place] [address] CBC w/ Auto Diffon 0 Erythrocyte distribution width (RBC) [Ratio] 13.4 % Normal 11.5-15.0 [facility] Comment on above: Performed By: #### 7 936170, 76587029, 5553907920, 3079984752, 6743510212, 95543340 #### [facility] (DEFAULT) [address] [place] [address] Hematocrit (Bld) [Volume fraction] 38.4 % Normal 33.7-40.4 [facility] Comment on above: Performed By: #### 7 204843, 43522088, 2497639514, 7759701190, 2909733060, 63511743 #### [facility] (DEFAULT) [address] [place] [address] Hemoglobin (Bld) [Mass/Vol] 12.6 g/dL Normal 11.3-15.9 [facility] Comment on above: Performed By: #### 7 803421, 88890238, 6602958779, 5977283858, 3824920855, 81072088 #### [facility] (DEFAULT) [address] [place] [address] Instr WBC 5.3 x10 Invalid Interpretation Code [facility] Comment on above: Performed By: #### 7 954944, 19590470, 8367194636, 7802514149, 8468734774, 70953178 #### [facility] (DEFAULT) [address] [place] [address] Man Diff? Auto Normal [facility] Comment on above: Performed By: #### 7 412012, 89853214, 2209898361, 5298072466, 4825155713, 03522682 #### [facility] (DEFAULT) [address] [place] [address] 26221 MCH (RBC) [Entitic mass] 29 pg Normal 24-34 [facility] Comment on above: Performed By: #### 7 068430, 15410256, 7491430830, 9457612136, 3018482912, 73634392 #### [facility] (DEFAULT) [address] [place] [address] 99029 MCHC (RBC) [Mass/Vol] 33 g/dL Normal 26-37 [facility] Comment on above: Performed By: #### 7 074123, 91204311, 8266446423, 8540948582, 7357435528, 95216108 #### [facility] (DEFAULT) [address] [place] [address] 57274 MCV (RBC) [Entitic vol] 89 fL Normal 81-100 [facility] Comment on above: Performed By: #### 7 240709, 04607673, 0727332857, 3323731076, 7351383440, 05056052 #### [facility] (DEFAULT) [address] [place] [address] Platelet 270 x10 Normal 138-427 [facility] Comment on above: Performed By: #### 7 858727, 40287096, 1985828364, 5004156722, 6101690912, 06454246 #### [facility] (DEFAULT) [address] [place] [address] Platelet mean volume (Bld) [Entitic vol] 10.1 fL Normal 6.3-10.2 [facility] Comment on above: Performed By: #### 7 825966, 33684047, 6267570697, 2837793022, 1165574073, 77051092 #### [facility] (DEFAULT) [address] [place] [address] RBC 4.32 x10 Normal 3.70-5.30 [facility] Comment on above: Performed By: #### 7 211126, 57928727, 9030209805, 3174858779, 8975936709, 82443243 #### [facility] (DEFAULT) [address] [place] [address] WBC 5.3 x10 Normal 3.5-10.5 [facility] Comment on above: Performed By: #### 7 081073, 11632991, 8759498566, 6467432616, 6537863956, 40544283 #### [facility] (DEFAULT) [address] [place] [address] Standardon 04-10-2020 eGFR Non AA >60 Invalid Interpretation Code [facility] Comment on above: Performed By: #### 7 450866, 21495036, 4701117698, 0502449222, 4467033524, 12409949 #### [facility] (DEFAULT) [address] [place] [address] eGFR AA >60 Invalid Interpretation Code [facility] Comment on above: Result Comment: Engineering Analyst roddy Kidney disease could be indicated at eGFRs of less than 60 ml/min/1.73m2. Kidney Failure is indicated at less than 15 ml/min/1.73m2 Performed By: #### 7 000352, 22983125, 5062644423, 0166599773, 2244864385, 16297827 #### [facility] (DEFAULT) [address] [place] [address] Albumin [Mass/Vol] 3.8 g/dL Normal 3.5-5.0 [facility] Comment on above: Performed By: #### 7 074527, 53168199, 4829513523, 9931890861, 4269748751, 91362455 #### [facility] (DEFAULT) [address] [place] [address] Albumin/Globulin [Mass ratio] 1.1 {ratio} Low 1.4-2.6 [facility] Comment on above: Performed By: #### 7 725943, 07963594, 9464787467, 0771893870, 9716232358, 68438310 #### [facility] (DEFAULT) [address] [place] [address] Alk Phos 40 IU/L Normal 32-91 [facility] Comment on above: Performed By: #### 7 568485, 72656577, 1312321858, 4002574948, 7170689854, 03554595 #### [facility] (DEFAULT) [address] [place] [address] 57351 ALT [Catalytic activity/Vol] 13.0 U/L Low 14.0-54.0 [facility] Comment on above: Performed By: #### 7 627319, 26320869, 9230924241, 9499399464, 7398173568, 54927044 #### [facility] (DEFAULT) [address] [place] [address] 32020 Anion gap [Moles/Vol] 11.0 mmol/L Normal 5.0-19.0 [facility] Comment on above: Performed By: #### 7 006532, 32159332, 4112999997, 7210510767, 7865008387, 78625113 #### [facility] (DEFAULT) [address] [place] [address] 70194 AST [Catalytic activity/Vol] 19 U/L Normal 15-41 [facility] Comment on above: Performed By: #### 7 634393, 30381269, 8226468900, 4392330654, 7478256101, 05267150 #### [facility] (DEFAULT) [address] [place] [address] 05679 Bili Total 1.1 mg/dL Normal 0.3-1.2 [facility] Comment on above: Performed By: #### 7 097849, 36057753, 2262189859, 1299458754, 3916742574, 43477716 #### [facility] (DEFAULT) [address] [place] [address] 34855 Calcium [Mass/Vol] 9.1 mg/dL Normal 8.9-10.3 [facility] Comment on above: Performed By: #### 7 237033, 69126212, 8695210650, 3626953341, 6048889132, 19049357 #### [facility] (DEFAULT) [address] [place] [address] 16065 Chloride [Moles/Vol] 107 mmol/L Normal 101-111 [facility] Comment on above: Performed By: #### 7 338500, 25109930, 4486377699, 3240800712, 1345811159, 08438825 #### [facility] (DEFAULT) [address] [place] [address] 01367 CO2 [Moles/Vol] 23 mmol/L Normal 21-32 [facility] Comment on above: Performed By: #### 7 402253, 54477670, 5230480795, 9607499095, 5962589679, 41979717 #### [facility] (DEFAULT) [address] [place] [address] 89026 Creatinine [Mass/Vol] 0.75 mg/dL Normal 0.60-1.30 [facility] Comment on above: Performed By: #### 7 199899, 01543228, 3986444911, 7213549725, 1715744036, 22551444 #### [facility] (DEFAULT) [address] [place] [address] 77474 Globulin (S) [Mass/Vol] 3.4 g/dL Normal 1.5-4.3 [facility] Comment on above: Performed By: #### 7 520959, 98322102, 7830262874, 7183723348, 5522953353, [id number] #### [facility] (DEFAULT) [address] [place] [address] 43392 Glucose [Mass/Vol] 98.0 mg/dL Normal 74.0-118.0 [facility] Comment on above: Performed By: #### 7 [id number], [id number], [id number], [id number], [id number], [id number] #### [facility] (DEFAULT) [address] [place] [address] 40203 Osmolality 276 mOsm/L Invalid Interpretation Code [facility] Comment on above: Performed By: #### 7 [id number], [id number], [id number], [id number], [id number], [id number] #### [facility] (DEFAULT) [address] [place] [address] 09021 Potassium [Moles/Vol] 4.0 mmol/L Normal 3.6-5.1 [facility] [facility] Comment on above: Performed By: #### 7 [id number], [id number], [id number], [id number], [id number] #### [facility] (DEFAULT) [address] [place] [address] 42893 Protein [Mass/Vol] 7.2 g/dL Normal 6.5-8.1 [facility] Comment on above: Performed By: #### 7 [id number], [id number], [id number], [id number], [id number] #### [facility] (DEFAULT) [address] [place] [address] 52379 Sodium [Moles/Vol] 137.0 mmol/L Normal 136.0-144 . 0 [facility] Comment on above: Performed By: #### 7 [id number], [id number], [id number], [id number], [id number], [id number] #### [facility] (DEFAULT) [address] [place] [address] Urea nitrogen [Mass/Vol] 20 mg/dL Normal 8-26 [facility] Comment on above: Performed By: #### 7 [id number], [id number], [id number], [id number], [id number], [id number] #### [facility] (DEFAULT) [address] [place] [address] Urea nitrogen/Creatinine [Mass ratio] 27.0 mg/mg High 4.6-16.2 [facility] Comment on above: Performed By: #### 7 [id number], [id number], [id number], [id number], [id number], [id number] #### [facility] (DEFAULT) [address] [place] [address] HgbA1c Standardon 04-10-2020 .Hb 14.7 Invalid Interpretation Code [facility] Comment on above: Performed By: #### 1 [id number], [id number], [id number], [id number], [id number], [id number] #### [facility] (DEFAULT) [address] [place] [address] .Hgb A1c 0.51 g/dL Invalid Interpretation Code [facility] Comment on above: Performed By: #### 1 [id number], [id number], [id number], [id number], [id number], [id number] #### [facility] (DEFAULT) [address] [place] [address] Glucose [Mass/Vol] 106 mg/dL Invalid Interpretation Code [facility] Comment on above: Performed By: #### 1 [id number], [id number], [id number], [id number], [id number], [id number] #### [facility] (DEFAULT) [address] [place] [address] HbA1c (Bld) [Mass fraction] 5.3 % Normal 4.6-6.2 [facility] Comment on above: Performed By: #### 1 [id number], [id number], [id number], [id number], [id number], [id number] #### [facility] (DEFAULT) [address] [place] [address]459 Lipid Panel Standardon 04-10 Cholesterol [Mass/Vol] 162.0 mg/dL Normal 66.0-200.0 [facility] Comment on above: Result Comment: Rosalind rable - Less than 200 mg/dL Borderline high risk - 200-239 mg/dL High risk - 240 mg/dL and over. Performed By: #### 7 [id number], [id number], [id number], [id number], [id number], [id number] #### [facility] (DEFAULT) [address] [place] [address] 11979 Cholesterol in HDL [Mass/Vol] 64 mg/dL Normal 40-71 [facility] Comment on above: Result Comment: High risk - <40 mg/dL. Performed By: #### 7 [id number], [id number], [id number], [id number], [id number], [id number] #### [facility] (DEFAULT) [address] [place] [address] 82964 Cholesterol in LDL [Mass/Vol] 90 mg/dL Normal 1-100 [facility] Comment on above: Result Comment: Opti mal - Less than 100 mg/dL Borderline high risk - 130-159 mg/dL High risk - 160-189 mg/dL. Performed By: #### 7 [id number], [id number], [id number], [id number], [id number], [id number] #### [facility] (DEFAULT) [address] [place] [address]3429 Cholesterol.total/Shleley sterol in HDL [Mass ratio] 2.5 {ratio} Normal 0.0-4.5 [facility] Comment on above: Performed By: #### 7 [id number], [id number], [id number], [id number], [id number], [id number] #### [facility] (DEFAULT) [address] [place] [address] 41904 Triglyceride [Mass/Vol] 38.0 mg/dL Normal 0.0-150.0 [facility] Comment on above: Performed By: #### 7 [id number], [id number], [id number], [id number], [id number], [id number] #### [facility] (DEFAULT) [address] [place] [address] 61570 VLDL. 8 mg/dL Normal 5-40 [facility] Comment on above: Performed By: #### 7 [id number], [id number], [id number], [id number], [id number], [id number] #### [facility] (DEFAULT) [address] [place] [address]8794 Vital Signs Date Time Vital Sign Value Performing Clinician Facility 10-28-2024 14:48-0400 Body height 162.56 cm Anup Pearl MD Work Phone: [facility] 10-28-2024 14:48-0400 Body mass index (BMI) [Ratio] 22.5 kg/m2 Anup Pearl MD Work Phone: [facility] 10-28-2024 14:48-0400 Body weight 59.53 kg Anup Pearl MD Work Phone: [facility] 10-28-2024 14:48-0400 Diastolic blood pressure 62 mm[Hg] Anup Pearl MD Work Phone: [facility] 10-28-2024 14:48-0400 Heart rate 69 /min Anup Pearl MD Work Phone: [facility] 10-28-2024 14:48-0400 SaO2% (BldA) [Mass fraction] 97 % Anup Pearl MD Work Phone: [facility] 10-28-2024 14:48-0400 Systolic blood pressure 108 mm[Hg] Anup Pearl MD Work Phone: [facility] 07-10-2024 14:58-0500 Body mass index (BMI) [Ratio] 22.34 kg/m2 Triston Velazquez DO Work Phone: [facility] 01-22-2025 14:58-0500 Body weight 59.02 kg Triston Marcus DO Work Phone: [facility] 07-10-2024 14:58-0500 Diastolic blood pressure 74 mm[Hg] Triston Marcus DO Work Phone: [facility] 07-10-2024 14:58-0500 Systolic blood pressure 116 mm[Hg] Triston Marcus DO Work Phone: [facility] 05-06-2024 14:43-0500 Body height 162.56 cm Tess Leahy MD Work Phone: [facility] 05-06-2024 14:43-0500 Body mass index (BMI) [Ratio] 22.5 kg/m2 Tess Leahy MD Work Phone: [facility] 05-06-2024 14:43-0500 Body weight 59.59 kg Tess Leahy MD Work Phone: [facility] 05-06-2024 14:43-0500 Diastolic blood pressure 79 mm[Hg] Tess Leahy MD Work Phone: [facility] 05-06-2024 14:43-0500 Heart rate 55 /min Tess Leahy MD Work Phone: [facility] 05-06-2024 14:43-0500 Systolic blood pressure 121 mm[Hg] Tess Leahy MD Work Phone: [facility] 11-20-2023 15:46-0400 Body height 162.56 cm MD Alis Beth Work Phone: [facility] 11-20-2023 15:46-0400 Body mass index (BMI) [Ratio] 22.7 kg/m2 MD Alis Beth Work Phone: [facility] 11-20-2023 15:46-0400 Body weight 60.04 kg MD Alis Beth Work Phone: [facility] 11-20-2023 15:46-0400 Diastolic blood pressure 72 mm[Hg] MD Alis Beth Work Phone: [facility] 11-20-2023 15:46-0400 Heart rate 54 /min MD Alis Beth Work Phone: [facility] 11-20-2023 15:46-0400 Systolic blood pressure 116 mm[Hg] MD Alis Beth Work Phone: [facility] 08-30-2023 14:03-0400 Blood Pressure Location Anup PEARL [facility] 08-30-2023 14:03-0400 Diastolic blood pressure 78 mm[Hg] Anpu PEARL [facility] [place] 08-30-2023 14:03-0400 Heart rate 72 /min Anup PEARL [facility] [place] 08-30-2023 14:03-0400 Respiratory rate 16 /min Anup PEARL [facility] [place] 08-30-2023 14:03-0400 Systolic blood pressure 116 mm[Hg] Anup PEARL [facility] [place] Encounters Encounter Date Encounter Type Care Provider Facility Start: 10-28-2024 End: 10-28-2024 ambulatory Anup Pearl MD Work Phone: [facility] Work Phone: Start: 10-28-2024 End: 10-28-2024 Patient encounter procedure Anup Pearl MD Work Phone: [facility] Physician [facility] Work Phone: Start: 10-23-2024 Non-patient / Non-visit Ni Pearl MD Work Phone: [facility] Physician [facility] Work Phone: Start: 10-02-2024 End: 10-02-2024 ambulatory Anup Pearl Facility:[facility] Start: 10-02-2024 End: 10-02-2024 Departed Referred Anup Pearl MD Work Phone: [facility] Start: 10-02-2024 Non-patient / Non-visit Ni Pearl MD Work Phone: [facility] Physician [facility] Work Phone: Start: 10-02-2024 End: 10-02-2024 ambulatory Anup PEARL Facility::[id number] Start: 09-24-2024 End: 09-24-2024 ambulatory Anup PEARL Facility: [facility] Start: 07-10-2024 End: 07-10-2024 Patient encounter procedure Triston Marcus DO Work Phone: [facility] Work Phone: Start: 07-10-2024 End: 07-10-2024 flow sheet Triston Marcus DO Work Phone: [facility] Comment on above: Well woman exam with routine gynecological exam; Breast cancer screening by mammogram; Hot flashes Start: 07-10-2024 End: 07-10-2024 ambulatory TRISTON MARCUS Not Available Start: 07-10-2024 End: 07-10-2024 Bamboo flowsheet Triston Marcsu DO Work Phone: [facility] Start: 07-10-2024 End: 07-16-2024 Bamboo flowsheet Triston Marcus DO Work Phone: [facility] Start: 07-10-2024 End: 07-16-2024 Clinisync Result Encounter Triston Marcus DO Work Phone: [facility] Unsolicited Start: 05-06-2024 End: 05-06-2024 ambulatory Tess Leahy MD Work Phone: [facility] Work Phone: Start: 05-06-2024 End: 05-06-2024 Patient encounter procedure Tess Leahy MD Work Phone: [facility] Physician [facility] Work Phone: Start: 02-14-2024 End: 02-14-2024 ambulatory MD Tess Leahy Work Phone: [facility] Work Phone: Start: 02-14-2024 End: 02-14-2024 Departed Referred MD Tess Leahy Work Phone: [facility] Start: 02-14-2024 Non-patient / Non-visit Tess Leahy MD Work Phone: [facility] Work Phone: Start: 02-14-2024 End: 02-14-2024 ambulatory Anup Frias PRESTON Facility:[id number] Start: 01-30-2024 End: 01-30-2024 ambulatory GUILHERME ROMO Not Available Start: 11-20-2023 Patient encounter status MD Jeremy Beth Work Phone: [facility] Start: 11-20-2023 End: 11-20-2023 ambulatory MD Alis Beth Work Phone: [facility] Work Phone: Start: 11-20-2023 End: 11-20-2023 Encounter for general adult medical examination without abnormal findings MD Alis Beth Work Phone: [facility] Start: 11-20-2023 End: 11-20-2023 Patient encounter procedure MD Alis Beth Work Phone: [facility] Work Phone: Start: 11-14-2023 Non-patient / Non-visit MD Alis Beth Work Phone: [facility] Work Phone: Start: 11-07-2023 Non-patient / Non-visit MD Alis Beth Work Phone: [facility] Work Phone: Start: 10-11-2023 End: 10-11-2023 ambulatory MD Alis Beth Work Phone: [facility] Work Phone: Start: 10-11-2023 End: 10-11-2023 Departed Referred MD Alis Beth Work Phone: [facility] Start: 10-11-2023 Non-patient / Non-visit MD Alis Beth Work Phone: [facility] Work Phone: Start: 08-30-2023 End: 08-30-2023 Patient encounter procedure Anup PEARL General Surgery Nill/[facility]aid [facility] Start: 11-11-2022 End: 11-12-[address] STEVE DAS . Facility:[facility] Start: 11-05-2022 Encounter for genera l adult medical examination without abnormal findings DR TESS LEAHY [facility] Start: 11-01-2022 End: 11-02-[address] TESS LEAHY Facility:[facility] Start: 11-01-2022 End: 11-02-2022 Encounter for general adult medical examination without abnormal findings DR TESS LEAHY Facility:[facility] Start: 06-23-2022 End: 06-23-[address] STEVE DAS . Facility:[facility] Procedures Date Procedure Procedure Detail Performing Clinician Start: 07-10-2024 IGP,APTIMA HPV,AGE GDLN Triston Marcus DO Work Phone: Start: 11-23-2023 Mammography Triston Marcus DO Work Phone: Start: 06-26-2023 Microscopic observation [Identifier] in Cervix by Cyto stain Triston Marcus DO Work Phone: Start: 11-02-2016 Colonoscopy Triston Marcus DO Work Phone: Start: 11-02-2016 Colonoscopy Anup NILL Start: 11-02-2016 Esophagogastroduodenoscopy Anup PEARL Start: 01-19-2011 Colonoscopy Anup PEARL Start: 01-19-2011 Esophagogastroduodenoscopy Anup PEARL section Anup Thakur Cholecystectomy Anup PEARL Excision of ganglion of foot Anup ALCANTARL Plan of Treatment Date Care Activity Detail Author Start: 11-02-2026 Screening for malignant neoplasm of colon [facility] Start: 06-26-2026 Screening for malignant neoplasm of cervix [facility] Start: 07-14-2025 End: 07-14-2025 Patient encounter procedure 07/14/2025 2:40 PM EST Office Visit [facility] [address] [id number] Triston Velazquez, DO [address] Fatemeh Lee, [place] [address] [facility] Start: 11-22-2024 Screening for malignant neoplasm of breast Mammogram [facility] Start: 07-10-2024 End: 07-10-2024 Patient encounter procedure 07/10/2024 2:40 PM EST Office Visit [facility] [address] [phone] Triston Velazquez, DO [address] Fatemeh [place], [facility] Arrived [facility] Comment on above: Arrived Start: 07-10-2024 End: 09-07-2025 MG Breast - bilateral Screening Bilateral screening mammogram Imaging Routine Breast cancer screening by mammogram Expected: 07/10/2024, Expires: 09/07/2025 [facility] Work Phone: Comment on above: Expected: 07/10/2024 , Expires: 09/07/2025 Start: 02-18-2024 Influenza vaccination Influenza Vacc ine (#1) [facility] Start: 10-28-2001 Screening for malignant neoplasm of cervix HPV/Cotest [facility] Start: 1970 Screening for malignant neoplasm of colon [facility] Brain WO contrast Firelan [facility] THIN PREP TIS PAP AN D HR HPV DNA THIN PREP TIS PAP AND HR HPV DNA Pathology and Cytology Routine Well woman exam with routine gynecological exam Ordered: 07/10/2024 [facility] Comment on above: Ordered: 07/10/2024 Immunizations Immunization Date Immunization Notes Care Provider Fa cility 04-19-2024 influenza virus vaccine, unspecified formulation Triston Marcusalireza BATES Work Phone: [facility] 03-19-2023 influenza virus vaccine, unspecified formulation Anup PEARL [facility] [place] 05-05-2021 SARS-CoV-2 (COVID-19 ) Ad26 vaccine, recombinant Anup PEARL [facility] [place] Comment on above: Result Comment: 2023: [id number] Payers Date Payer Category Payer Self-pay 2022 [facility] [id number] 2022 Unknown [id number] 1971 Unknown [id number] 1971 Unknown [id number] 1971 Unknown [id number] 1971 Unknown [id number] 1971 Unknown [id number] 1971 Unknown [id number] 1971 Unknown [id number] 1971 Unknown [id number] Unknown [facility] [employer] Access [id number] Unknown [id number] Unknown [id number] Unknown [id number] Social History Date Type Detail Facility Start: 08-30-2023 End: 11-20-2023 Tobacco smoking status Ex-smoker (finding) [facility] Tobacco smoking status Never [facility] Start: 05-31-2023 End: 07-10-2024 Sex Assigned At Female [facility] Start: 1970 Sex Assigned At Female F [facility] Start: 05-06-2024 End: 10-28-2024 Sex Female (finding) [facility] Start: 05-31-2023 Tobacco smoking stat us COIS Never smoked tobacco [facility] Start: 06-26-2023 End: 07-10-2024 Alcoholic beverage intake Current drinker of alcohol (finding) [facility] Start: 05-31-2023 End: 07-10-2024 History of Social function [facility] Start: 05-31-2023 Alcohol Comment Occasional alcohol u se [facility] Start: 1970 Sex assigned at Not on file N [facility] Healthcare Functional Status Date Assessment Result Facility [...] Abuse, 08/30/2023 Tobac (more content not included)... [facility] Comment on above: Result Comment: [...] nursing note reviewed. Exam conducted with a tool procurement coordinator present. Vitals: Estimated body mass index is [...] Triston Velazquez DO documented in this encounter [facility] Healthcare Evaluation note 02-14-2013 Note Date & Type Note Facility 02-14-2013 Evaluation note Diagnosis Onset Date Hypothyroidism, unspecified February 14, 2013 acute Wellness examination acute [facility] Work Phone: Evaluation + Plan note Note Date & Type Note Facility Evaluation + Plan note No data available for this section [facility] Evaluation note Note Date & Type Note Facility Evaluation note No assessment information availa [facility] Work Phone: Evaluation note Note Date & Type Note Facility Evaluation note Diagnosis Onset Date Resolution Concern about memory acute Nove mber 2023 2:28pm Headache acute May 06, 2024 2:28pm [facility] Work Phone: Evaluation note Note Date & Type Note Facility Evaluation note Diagnosis Well woman exam with routine gynecological exam Routine gynecological examination Breast cancer screening by mammogram Hot flashes documented in this encounter [facility] Hospital Discharge instructions Note Date & Type Note Facility Hospital Discharge instructions No data available for this section [facility] [place] Progress note Note Date & Type Note Facility Progress note No data available for this section [facility] [place] Summary Purpose Family History No Family History [...] CREATED AUTHOR AUTHOR'S ORGANIZ ATION 11/25/2022 [facility] DATE CREATED AUTHOR AUTHOR'S ORGANIZ ATION 07/12/2024 [facility] dical Specialists EPIC DATE CREATED AUTHOR AUTHOR'S ORGANIZ ATION 10/09/2024 [facility] DATE CREATED AUTHOR AUTHOR'S ORGANIZ ATION 10/18/2024 [facility] Patient Care team informatio n (unrecognized [...] End: February 14, 2024 Anup Pearl MD [facility] Attending Provider Active Start: February 14, 2024 [...] Active S tart: October 11, 2023 Tess Laehy MD Attending Provider Active St art: October [...] Attending Provider Active Start: November 14, 2023 Building Carpenter Relationship Specialty Start Date End Date Tess Leahy MD [address] [place] [phone] PCP - [facility] 06/26/23 Building Carpenter Relationship Specialty Start Date End Date Tess Leahy MD [address] [place] [phone] [facility] - [facility] 06/26/23 Building Carpenter Relationship Specialty Start Date End Date Tess Leahy MD [address] [place] [phone] PCP - General [facility] Medicine 06/26/23 Team Status: Inactive Member Role Status Dates Anup Pearl MD FACS Attending Provider Active Start: October 02, 2024 End: October 02, 2024 Team Status: Active Member Role Status Dates Tess Leahy MD Attending Provider Active St art: October 02, 2024 Team Status: Active Member Role Status Dates Anup Pearl MD FACS Attending Provider Active Start: October 23, 2024 Team Status: Inactive Member Role Status Dates Tess Leahy MD Primary Care Provide r, Attending Provider Active Start: October 28, 2024 End: October 28, 2024 Goals (unrecognized section and content) Goals [...] BE BASED ON THE PRIMARY CLINICAL RECORDS. [facility]. provides no warranty or guarantee of the accuracy or completeness of information in this document.
== END 2024-11-20 06:56 | disposition home or self-care (01) ==
LOC: MAMMO 06:55
PROVIDERS: PCP Family Medicine; Visit Provider Obstetrics & Gynecology
DX: Z12.31 Encounter for screening mammogram for malignant neoplasm of breast (principal); Z80.3 Family history of malignant neoplasm of breast; Z80.0 Family history of malignant neoplasm of digestive organs
CPT/HCPCS: 77063; 77067

== ENCOUNTER 2024-12-04 07:38 | Outpatient (OUT) | payer BC, SELFPAY ==
--- OUTSIDE RECORDS SUMMARY | 2024-12-04 07:42 | XMS_ITS | Clinical Summary ---
Author Organization [email or web address] s tem Address [id number] [address] [place] [address] Care Team Providers Care News Videotape Editor Name Role Phone Tess Nunn MD Primary Care Provider [phone] Allergies No known active allergies Medications sucralfate [...] nal Result [facility] EXTERNAL NON-INTERFACED REF LAB [address] [place] [address] from Last 3 Months or Most Recently Relevant to Health Maintenance Insurance [employer] Care Teams News Videotape Editor Relationship Specialty Start Date End Date Tess Nunn MD [facility] [place] [address] PCP - General 07/21/17
--- OUTSIDE RECORDS SUMMARY | 2024-12-04 07:42 | XMS_ITS | Clinical Summary ---
Author Organization [facility] Healthcare Address [address] [facility] [place] [address] Care Team Providers Care Outside Plant Field Engineer Name Role Phone Tess Nunn MD Primary Care Provider Allergies No known active allergies Medications levothyroxine [...] 30 days 30 tablet 11 08/12/2024 Active Encounters Date Type Department Care Team Description 11/20/2024 Clinisync Result Encounter [facility] External Department Unsolicited Triston Velazquez DO from Last 3 Months Family History Medical History Relation Name Comments [...] EST Office Visit [facility] [address] [place] [address] Triston Velazquez, DO [address] [place] [address] Health Maintenance Due Date Last Done Comments CT Colonography 1971 FIT-DNA 1971 FIT 1971 FOBT 1970 Sigmoidoscopy 1970 Mammogram 11/20/2025 11/20/2024, 11/2023, 11/11/2022, Additional history exists Colonoscopy 11/02/2026 11/02/2016, 01/19/2011 Colorectal Cancer Screening 11/02/2026 Cervical Cancer Screening 07/10/2029 HPV/Cotest 07/10/2029 Pap Smear 07/10/2029 07/10/2024, 06/26/2023 Influenza Vaccine Completed 04/19/2024, , 04/01/2020, Additional history exists Procedures Procedure Name Priority Date/Time Associated Diagnosis Comments MM TOMOSYNTHESIS SCREENING BI 11/20/2024 12:54 PM EDT PAP SMEAR Routine 07/10/2024 12:00 AM EST from Last 3 Months or Most Recently Relevant to Health Maintenance Results * MM TOMOSYNTHESIS SCREENING BI (11/20/2024 12:54 PM EDT) Anatomical Region Laterality Modality Other 11/20/2024 12:5 4 PM EDT Narrative 11/20/2024 12:55 PM EDT The [address] [address] Mammography Report Signed Patient: ANATOLIY MARIE MR#: [id number] : 1970 Acct:[id number] Age/Sex: 54 / F ADM Date: 11/20/24 Loc: MAMMO Attending Dr: Triston Velazquez D.O. Ordering Physician: Triston Velazquez D.O. Results: Date of Service: 11/20/24 Follow Up: Procedure(s): MM tomosynthesis screening BI Accession Number(s): [id number] cc: Tess Nunn M.D.; Triston Velazquez D.O. Patient Name: ANATOLIY MARIE MR#: [id number] : 1970 Exam Date: 11/20/2024 Ordering Doctor: DR TRISTON VELAZQUEZ . RADIOLOGY REPORT PROCEDURE: MM TOMOSYNTHESIS SCREENING BI COMPARISON: MM TOMOSYNTHESIS SCREENING BI, 11/20/2023. MG MAMM SCREEN 3D CHRISTAL CAD, 11/11/2022. MG MAMM SCREEN 3D CHRISTAL CAD, 11/10/2021. MG MAMM CHRISTAL SCRN W CAD DIG, 10/31/2012. INDICATIONS: screening for malignant neoplasm of breast Calculator Name NCI Breast Cancer Risk Assessment Tool 5 Year Breast Cancer Risk 2.20% Lifetime Breast Cancer Risk 16.10% Personal Breast Cancer No Personal Ovarian Cancer No Treatments None Family Cancers Grandmother-paternal with breast cancer at age 70; Grandmother-maternal with colon/stomach cancer at age 60; Mother with breast cancer at age 68. LOCATION: [facility] BREAST COMPOSITION: The breasts are extremely dense, which lowers the sensitivity of mammography. FINDINGS: RIGHT BREAST: No significant suspicious finding. Benign-appearing calcifications are present. There similar focal asymmetries. LEFT BREAST: No significant suspicious finding. Benign-appearing calcifications are present. There are similar focal asymmetries. DIAGNOSTIC CATEGORY 2--BENIGN FINDING: RECOMMENDATIONS: ROUTINE MAMMOGRAM AND CLINICAL EVALUATION IN 12 MONTHS. PLEASE NOTE: A NORMAL MAMMOGRAM DOES NOT EXCLUDE THE POSSIBILITY OF BREAST CANCER. A CLINICALLY SUSPICIOUS PALPABLE LUMP SHOULD BE BIOPSIED. Dictated by: Min Davis MD on 11/20/2024 at 12:51 Approved by: Min Davis MD on 11/20/2024 at 12:54 Dictated By: Min Davis M.D. Signed By: 11/20/24 1255 DD/ 1254 TD/TT: Hydraulic Press In Operator: Procedure Note Radiology, Radiologist, MD - 11/20/2024 [place] [address] Mammography Report Signed Patient: ANATOLIY MARIE LMR#: [id number] : 1970Acct:[id number] Age/Sex: 54 / FADM Date: 11/20/24 Loc: MAMMO Attending Dr: Triston Velazquez D.O. Ordering Physician: Triston Velazquez D.O.Results: Date of Service: 11/20/24Follow Up: Procedure(s): MM tomosynthesis screening BI Accession Number(s): [id number] cc: Tess Nunn M.D.; Triston Velazquez D.O. Patient Name: ANATOLIY MARIE MR#: [id number] : 1970 Exam Date: 11/20/2024 Ordering Doctor: DR TRISTON VELAZQUEZ . RADIOLOGY REPORT PROCEDURE: MM TOMOSYNTHESIS SCREENING BI COMPARISON: MM TOMOSYNTHESIS SCREENING BI, 11/20/2023. MG MAMM [id number] CHRISTAL CAD, 11/11/2022. MG MAMM SCREEN 3D CHRISTAL CAD, 11/10/2021. MG MAMM BILSCRN W CAD DIG, 10/31/2012. INDICATIONS: screening for malignant neoplasm of breast Calculator Name NCI Breast Cancer Risk Assessment Tool 5 Year Breast Cancer Risk 2.20% Lifetime Breast Cancer Risk 16.10% Personal Breast Cancer No Personal Ovarian Cancer No Treatments None Family Cancers Grandmother-paternal with breast cancer at age 70; Grandmother-maternal with colon/stomach cancer at age 60; Mother withbreast cancer at age 68. LOCATION: [facility] BREAST COMPOSITION: The breasts are extremely dense, which lowers the sensitivity of mammography. FINDINGS: RIGHT BREAST: No significant suspicious finding. Benign-appearing calcifications are present. There similar focal asymmetries. LEFT BREAST: No significant suspicious finding. Benign-appearing calcifications are present. There are similar focal asymmetries. DIAGNOSTIC CATEGORY 2--BENIGN FINDING: RECOMMENDATIONS: ROUTINE MAMMOGRAM AND CLINICAL EVALUATION IN 12 MONTHS. PLEASE NOTE: A NORMAL MAMMOGRAM DOES NOT EXCLUDE THE POSSIBILITY OFBREAST CANCER. A CLINICALLY SUSPICIOUS PALPABLE LUMP SHOULD BE BIOPSIED. Dictated by: Min Davis MD on 11/20/2024 at 12:51 Approved by: Min Davis MD on 11/20/2024 at 12:54 Dictated By: Min Davis M.D. Signed By:11/20/24 1255 DD/ 1254 TD/TT: Hydraulic Press In Operator: us Triston Marcus DO [facility] Final Result * Pap Smear (07/10/2024 12:00 AM EST) Swab Cervical swab / Unknown us Triston Marcus DO LAB CYTOLOGY ORDERABLES Final Re sult EXTERNAL LAB from Last 3 Months or Most Recently Relevant to Health [place] [address] BS Care Teams Outside Plant Field Engineer Relationship Specialty Start Date End Date Tess Nunn MD PCP - General Family Medicine 06/26/23
--- OUTSIDE RECORDS SUMMARY | 2024-12-04 07:42 | XMS_ITS | Encounter Summary ---
Author Organization [facility] Address [address] [facility] [place] [address] Care Team Providers Care Branch Associate Teller Name Role Phone Tess Nunn MD Primary Care Provider [phone] Encounter Details Date Type Department Care Team (Late st Contact Info) Description 06/29/2023 Clinisync Result Encounter [facility] External Department Unsolicited Tristno Velazquez, DO [address] [facility] [place] [address] Social History Tobacco Use Types Packs/Day Years [...] 07/14/2025 2:40 PM EST Office Visit [facility] OB [address] [place] [phone] Triston Velazquez, [address] [place] [address] documented as of this encounter Procedures Procedure Name Priority Date/Time Associated Diagnosis Comments XR DEXA AXIAL SKELETON 06/29/2023 3:46 PM EST documented in this encounter Results * XR DEXA AXIAL SKELETON (06/29/2023 3:46 PM EST) Anatomical Region Laterality Modality Other 06/29/2023 3:46 PM EST Narrative 06/29/2023 3:48 PM EST The [address] [address] XRay Report Signed Patient: ANATOLIY MARIE MR#: [id number] : 1970 Acct:[id number] Age/Sex: 52 / F ADM Date: 06/29/23 Loc: RAD Attending Dr: Triston Velazquez D.O. Ordering Physician: Triston Velazquez D.O. Date of Service: 06/29/23 Procedure(s): XR DEXA axial skeleton Accession Number(s): [id number] cc: Tess Nunn M.D.; Triston Velazquez D.O. [address] [address] Patient Name: ANATOLIY MARIE MRN: [id number] date: 1970 Sex: F Assigned Patient Location: [facility] Current Patient Location: [facility] Accession/Order Number: [id number] Exam Date: 06/29/2023 15:00 Report Date: 06/29/2023 [...] Signed By: 06/29/23 1548 DD/ 1546 TD/TT: Orthodontist Small Business Owner: Procedure Note Radiology, Radiologist, MD - 06/29/[address] [address] XRay Report Signed Patient: ANATOLIY MARIE LMR#: [id number] : 1970Acct:[id number] Age/Sex: 52 / FADM Date: 06/29/23 Loc: RAD Attending Dr: Triston Velazquez D.O. Ordering Physician: Triston Velazquez D.O. Date of Service: 06/29/23 Procedure(s): XR DEXA axial skeleton Accession Number(s): [id number] cc: Tess Nunn M.D.; Triston Velazquez D.O. The [address] [address] Patient Name: ANATOLIY MARIE MRN: [id number] date: 1970 Sex: F Assigned Patient Location: [facility] Current Patient Location: [facility] Accession/Order Number: [id number] Exam Date: 06/29/2023 15:00 Report Date: 06/29/2023 [...] M.D. Signed By:06/29/23 1548 DD/ 1546 TD/TT: Orthodontist Small Business Owner: us Triston Velazquez DO [facility] Final Result documented in this encounter Visit Diagnoses Not on filedocumented in this encounter Care Teams Branch Associate Teller Relationship Specialty Start Date End Date Tess Nunn MD PCP - General Family Medicine 06/26/23 documented as of this encounter
--- OUTSIDE RECORDS SUMMARY | 2024-12-04 07:42 | XMS_ITS | Encounter Summary ---
Author Organization [facility] Address [address] [place] [address] Care Team Providers Care Counter Roller Name Role Phone Tess Nunn MD Primary Care Provider [phone] Encounter Details Date Type Department Care Team (Late st Contact Info) Description 11/11/2022 Clinisync Result Encounter [facility] External Department Unsolicited Triston Velazquez, DO [address] [facility] [place] [address] Social History Tobacco Use Types Packs/Day Years [...] Visit [facility] OB [address] [phone] Triston Velazquez, [address] [place] [address] documented as of this encounter Procedures Procedure [...] : DR TRISTON VELAZQUEZ . Admission #: [id number] Family : Order #: [id number] CLICK HERE TO VIEW EXAM RADIOLOGY REPORT [...] breast cancer at age 69. LOCATION: [facility] BREAST COMPOSITION: Extremely dense, which lowers [...] : DR TRISTON VELAZQUEZ . Admission #: [id number] Family : Order #: [id number] CLICK HERE TO VIEW EXAM RADIOLOGY REPORT [...] withbreast cancer at age 69. LOCATION: [facility] BREAST COMPOSITION: Extremely dense, which lowers [...] Nam Andrade MD on 11/11/2022 at 13:58 [facility] Final Result documented in this encounter Visit Diagnoses Not on filedocumented in this encounter Care Teams Counter Roller Relationship Specialty Start Date End Date Tess Nunn MD PCP - General Family Medicine 06/26/23 documented as of this encounter
--- OUTSIDE RECORDS SUMMARY | 2024-12-04 07:42 | XMS_ITS | Encounter Summary ---
Author Organization [facility] Address [address] [facility] [place] [address] Care Team Providers Care Sales Hunter Name Role Phone Tess Nunn MD Primary Care Provider [phone] Encounter Details Date Type Department Care Team (Late st Contact Info) Description 11/23/2023 Clinisync Result Encounter [facility] External Department Unsolicited Agapito Velazquez, DO [address] [facility] [place] [address] Social History Tobacco Use Types Packs/Day Years [...] 07/14/2025 2:40 PM EST Office Visit [facility] OB [address] [facility] [place] [phone] Agapito Velazquez, [address] [facility] [place] [address] documented as of this encounter Procedures Procedure Name Priority Date/Time Associated Diagnosis Comments MM TOMOSYNTHESIS SCREENING BI 11/23/2023 1:30 PM EDT documented in this encounter Results * MM TOMOSYNTHESIS SCREENING BI (11/23/2023 1:30 PM EDT) Anatomical Region Laterality Modality Other 11/23/2023 1:30 PM EDT Narrative 11/23/2023 1:31 [place] [address] Mammography Report Signed Patient: ANATOLIY MARIE MR#: [id number] : 1970 Acct:[id number] Age/Sex: 53 / F ADM Date: 11/20/23 Loc: MAMMO Attending Dr: Agapito Velazquez D.O. Ordering Physician: Agapito Velazquez D.O. Results: Date of Service: 11/20/23 Follow Up: Procedure(s): MM tomosynthesis screening BI Accession Number(s): [id number] cc: Tess Nunn M.D.; Agapito Velazquez D.O. Patient Name: ANATOLIY MARIE MR#: [id number] : 1970 Exam Date: 11/20/2023 Ordering Doctor: [...] breast cancer at age 69. LOCATION: [facility] BREAST COMPOSITION: The breasts are extremely dense, [...] Signed By: 11/23/23 1331 DD/ 1330 TD/TT: Child Day Care Teacher: Procedure Note Radiology, Radiologist, MD - 11/23/2023 [place] [address] Mammography Report Signed Patient: ANATOLIY MARIE LMR#: [id number] : 1970Acct:[id number] Age/Sex: 53 / FADM Date: 11/20/23 Loc: MAMMO Attending Dr: Agapito Velazquez D.O. Ordering Physician: Agapito Velazquez D.O.Results: Date of Service: 11/20/23Follow Up: Procedure(s): MM tomosynthesis screening BI Accession Number(s): [id number] cc: Tess Nunn M.D.; Agapito Velazquez D.O. Patient Name: ANATOLIY MARIE MR#: [id number] : 1970 Exam Date: 11/20/2023 Ordering Doctor: DR Agapito Velazquez . RADIOLOGY REPORT PROCEDURE: MM TOMOSYNTHESIS SCREENING BI COMPARISON: MG MAMM SCREEN 3D CHRISTAL CAD, 11/11/2022. MG MAMM SCREEN 3DBIL CAD, 11/10/2021. MG MAMM SCREEN 3D CRHISTAL CAD, 10/28/2020. MG MAMM CHRISTAL SCRN WCAD [...] withbreast cancer at age 69. LOCATION: [facility] BREAST COMPOSITION: The breasts are extremely dense, [...] M.D. Signed By:11/23/23 1331 DD/ 1330 TD/TT: Child Day Care Teacher: [facility] DO [facility] Final Result documented in this encounter Visit Diagnoses Not on filedocumented in this encounter Care Teams Sales Hunter Relationship Specialty Start Date End Date Tess Nunn MD PCP - General Family Medicine 06/26/23 documented as of this encounter
--- OUTSIDE RECORDS SUMMARY | 2024-12-04 07:42 | XMS_ITS | Referral Summary ---
Author Organization [facility] Address [address] [place] [address] Care Team Providers Care Electrical Appliance Mechanic Name Role Phone Unavailable Primary Care Provider Unavailabl e Social History Tobacco Use Types Packs/Day Years Used Date Smoking Tobacco: Never Assessed [place] Safety & Environment Answer Date Rec orded Fear of Current or Ex-Partner Not on file Emotionally Abused Not on file 08/10/2023 Physically Abused Not on file 08/10/2023 Sexually Abused Not on file 08/10/2023 Physically or Sexually Abused Not on file Comments Unknown Sex and Gender Information Value Date Recorded Sex Assigned at Not on file Legal Sex Female 12:40 AM EDT Gender Identity Not on file Sexual [...]
--- OUTSIDE RECORDS SUMMARY | 2024-12-04 07:42 | XMS_ITS | Encounter Summary ---
Author Organization [facility] Address [address] [facility] [place] [address] Care Team Providers Care Sap Gatherer Name Role Phone Tess Nunn MD Primary Care Provider [phone] Encounter Details Date Type Department Care Team (Late st Contact Info) Description 11/20/2024 Clinisync Result Encounter [facility] External Department Unsolicited Triston Velazquez, DO [address] [place] [address] Social History Tobacco Use Types Packs/Day Years [...] 07/14/2025 2:40 PM EST Office Visit [facility] OB [address] [facility] [place] [phone] Triston Velazquez, [address] [facility] [place] [address] documented as of this encounter Procedures Procedure Name Priority Date/Time Associated Diagnosis Comments MM TOMOSYNTHESIS SCREENING BI 11/20/2024 12:54 PM EDT documented in this encounter Results * MM TOMOSYNTHESIS SCREENING BI (11/20/2024 12:54 PM EDT) Anatomical Region Laterality Modality Other 11/20/2024 12:5 4 PM EDT Narrative 11/20/2024 12:55 [place] [address] Mammography Report Signed Patient: ANATOLIY MARIE MR#: [id number] : 1970 Acct:[id number] Age/Sex: 54 / F ADM Date: 11/20/24 Loc: MAMMO Attending Dr: Triston Velazquez D.O. Ordering Physician: Triston Velazquez D.O. Results: Date of Service: 11/20/24 Follow Up: Procedure(s): MM tomosynthesis screening BI Accession Number(s): [id number] cc: Tess Nunn M.D.; Triston Velazquez D.O. Patient Name: ANATOLIY MARIE MR#: [id number] : 1970 Exam Date: 11/20/2024 Ordering Doctor: [...] breast cancer at age 69. LOCATION: [facility] BREAST COMPOSITION: The breasts are extremely [...] Signed By: 11/20/24 1255 DD/ 1254 TD/TT: Warehouse Assistant: Procedure Note Radiology, Radiologist, MD - 11/20/2024 [place] [address] Mammography Report Signed Patient: ANATOLIY MARIE LMR#: [id number] : 1970Acct:[id number] Age/Sex: 54 / FADM Date: 11/20/24 Loc: MAMMO Attending Dr: Triston Velazquez D.O. Ordering Physician: Triston Velazquez D.O.Results: Date of Service: 11/20/24Follow Up: Procedure(s): MM tomosynthesis screening BI Accession Number(s): [id number] cc: Tess Nunn M.D.; Triston Velazquez D.O. Patient Name: ANATOLIY MARIE MR#: [id number] : 1970 Exam Date: 11/20/2024 Ordering Doctor: DR TRISTON VELAZQUEZ . RADIOLOGY REPORT PROCEDURE: MM TOMOSYNTHESIS SCREENING BI COMPARISON: MM TOMOSYNTHESIS SCREENING BI, 11/20/2023. MG MAMM [id number] CHRISTAL CAD, 11/11/2022. MG MAMM SCREEN 3D [...] withbreast cancer at age 69. LOCATION: [facility] BREAST COMPOSITION: The breasts are extremely [...] M.D. Signed By:11/20/24 1255 DD/ 1254 TD/TT: Warehouse Assistant: us Triston Marcus DO [facility] Final Result documented in this encounter Visit Diagnoses Not on filedocumented in this encounter Care Teams Sap Gatherer Relationship Specialty Start Date End Date Tess Nunn MD PCP - General Family Medicine 06/26/23 documented as of this encounter
--- OUTSIDE RECORDS SUMMARY | 2024-12-04 07:42 | XMS_ITS | Encounter Summary ---
Author Organization [facility] Address [address] [facility] [place] [address] Care Team Providers Care Research Associate Molecular Biology Name Role Phone Tess Nunn MD Primary Care Provider [phone] Encounter Details Date Type Department Care Team (Late st Contact Info) Description 07/03/2024 Orders Only [facility] [address] [facility] [place] [phone] Tricia Ivy LPN [address] [facility] [place] [facility] Social History Tobacco Use Types Packs/Day Years [...] [facility] [address] [facility] [place] [phone] Agapito Velazquez DO [address] [facility] [address] [place], [facility] documented as of this encounter Procedures Procedure [...] on filedocumented in this encounter Care Teams Research Associate Molecular Biology Relationship Specialty Start Date End Date Tess Nunn MD PCP - General Family Medicine 06/26/23 documented as of this encounter
--- OUTSIDE RECORDS SUMMARY | 2024-12-04 07:42 | XMS_ITS | Encounter Summary ---
Author Organization [facility] Address [address] [facility] [place] [address] Care Team Providers Care Toll Line Inspector Name Role Phone Tess Nunn MD Primary Care Provider [phone] Encounter Details Date Type Department Care Team (Late st Contact Info) Description 07/18/2024 Orders Only [facility] [address] [place] [phone] Megan Rooney [address] [address] Social History Tobacco Use Types Packs/Day Years [...] 07/14/2025 2:40 PM EST Office Visit [facility] [address] [place] [phone] Agapito Velazquez DO [address] [place] [address] Dr [place], [place] [phone] documented as of this encounter Procedures Procedure Name Priority Date/Time Associated Diagnosis Comments PAP SMEAR Routine 07/10/2024 12:00 AM EST documented in this encounter Results * Pap Smear (07/10/2024 12:00 AM EST) Swab Cervical swab / Unknown Agapito Velazquez DO LAB CYTOLOGY ORDERABLES Final Re sult EXTERNAL LAB documented in this encounter Visit Diagnoses Not on filedocumented in this encounter Care Teams Toll Line Inspector Relationship Specialty Start Date End Date Tess Nunn MD PCP - General Family Medicine 06/26/23 documented as of this encounter
--- OUTSIDE RECORDS SUMMARY | 2024-12-04 07:56 | XMS_ITS | CCD ---
Author Organization [facility] Care Team Providers Care Ortho Tech Name Role Phone PIPPA ., DR WILSON Admitting Unavailabl e KARASIK ., DR WILSON Consulting Unavailabl e KARCHIP ., DR WILSON Attending Unavailabl e LEAHY, DR TESS Pickard Primary Care Unavailable [place], DR TYLOR Whitney Consulting Unavailable LEAHY, DR TESS Pickard Consulting Unavailable LEAHY, DR TESS Pickard Attending Unavailable LEAHY, DR TESS Pickard Admitting Unavailable LEAHY, DR TESS Pickard Primary Care Unavailable KARASIK ., DR WILSON Admitting Unavailabl e KARASIK ., DR WILSON Consulting Unavailabl e KARASIK ., DR WILSON Attending Unavailabl e LEAHY, DR TESS Pickard Primary Care Unavailable TESS LEAHY Primary Care Physician MD Alis Beth Primary Care Provider [phone] MD Anup Pearl Attending Provider [phone] MD Tess Leahy Primary Care Provider MD Anup Pearl Attending Provider Tess Leahy MD Primary Care Provider Anup Pearl MD Attending Provider [phone] Tess Leahy MD Primary Care Provider TRISTON VELAZQUEZ Attending Unavailable GUILHERME ROMO Attending Unavailable NilAnup marquez Admitting Unavailable Nill, Anup Frias Attending Unavailable NilAnup marquez Admitting Unavailable Tess Leahy Primary Care Unavailable Anup Pearl Attending Unavailable Alis Beth Primary Care Unavailable Dae, Anup Frias Attending Unavailable Niljimmy, Anup Frias Admitting Unavailable Nill Anup ROSALES Attending Provider [phone] Anup PEARL Attending Unavailable NILAnup Marquez Attending Unavailable NILAnup Marquez R Attending Unavailable Tess Leahy MD Primary Care Provider Allergies Allergy Classification Reported Allergen(s) Allergy Type Date of Onset Reaction(s) Facility (1 source) No Known Medication Allergies; Translations: [No Known Medication Allergies] Propensity to adverse reactions (disorder) [facility] Repository Medications Current Medications Medication Drug Class(es) Dates Sig (Normalized) Sig (Original) estradiol 0.5 mg oral tablet (3 sources) Estrogen Start: 08-12-2024 take 1 tablet by mouth once daily estradiol (Estrace) 0.5 MG tablet Indications: Hormone disorder Take 1 tablet (0.5 mg) by mouth Daily Take 1 tablet by mouth for 30 days 30 tablet 11 08/12/2024 Active Start: 07-10-2024 End: 07-10-2024 take 1 tablet by mouth once daily estradiol (Estrace) 0.5 MG tablet Indications: Hot flashes Take 1 tablet (0.5 mg) by mouth Daily Take 1 tablet by mouth for 30 days 30 tablet 11 07/10/2024 07/10/2024 Discontinued (Ineffective) estrogens, conjugated (fpc) 0.3 mg oral tablet (4 sources) Estrogen Start: 07-10-2024 End: 08-09-2024 take 1 tablet by mouth once daily, then take 1 tablet by mouth once daily estrogens, conjugated, (Premarin) 0.3 MG tablet Indications: Hot flashes Take 1 tablet (0.3 mg) by mouth Daily Take 1 tablet daily by mouth for 30 days 30 tablet 3 07/10/2024 Active levothyroxine sodium 0.088 mg oral tablet (15 sources) l-Thyroxine Start: 01-09-2024 take 1 tablet [...] 10:41am Start: 08-30-2023 take 1 tablet by once daily Synthroid 88 mcg Tab 88 [...] pantoprazole 40 mg delayed release oral tablet (11 sources) Proton Pump Inhibitor Start: 08-30-2023 take [...] 04/03/2023 Active sucralfate 1000 mg oral tablet (10 sources) Aluminum Complex Start: 11-20-2023 take 1 [...] 15, 2024 1:00am October 28, 2024 2:56pm Problems Active Problems Problem Classification Problem Date Documented Da te Episodic/Chronic Abdominal pain (2 sources) Epigastric pain; Translations: [Epigastric pain] Onset: Episodic Administrative/social admission (4 sources) Memory finding; [...] Test Name Value Interpretation Reference Range Facility MM TOMOSYNTHESIS SCREENING B Ion 11-20-[address] [address] Mammography Report Signed Patient: IOANA MARIE MR#: [id number] : 1970 Acct:[id number] Age/Sex: 54 / F ADM Date: 11/20/24 Loc: MAMMO Attending Dr: Triston Velazquez D.O. Ordering Physician: Triston Velazquez D.O. Results: Date of Service: 11/20/24 Follow Up: Procedure(s): MM tomosynthesis screening BI Accession Number(s): [id number] cc: Tess Leahy M.D.; Triston Velazquez D.O. Patient Name: IOANA MARIE MR#: [id number] : 1970 Exam Date: 11/20/2024 Ordering Doctor: [...] breast cancer at age 69. LOCATION: [facility] BREAST COMPOSITION: The breasts are extremely [...] Signed By: 11/20/24 1255 DD/ 1254 TD/TT: Feller Hand: [facility] Radiology, Radiologi MD kevin - 11/20/2024 [place] [address] Mammography Report Signed Patient: IOANA MARIE MR#: [id number] : 1970 Acct:[id number] Age/Sex: 54 / F ADM Date: 11/20/24 Loc: MAMMO Attending Dr: Triston Velazquez D.O. Ordering Physician: Triston Velazquez D.O. Results: Date of Service: 11/20/24 Follow Up: Procedure(s): MM tomosynthesis screening BI Accession Number(s): [id number] cc: Tess Leahy M.D.; Triston Velazquez D.O. Patient Name: IOANA MARIE MR#: [id number] : 1970 Exam Date: 11/20/2024 Ordering Doctor: DR TIRSTON VELAZQUEZ . RADIOLOGY REPORT PROCEDURE: MM TOMOSYNTHESIS [...] breast cancer at age 69. LOCATION: [facility] BREAST COMPOSITION: The breasts are extremely [...] Dictated By: Min Davis M.D. Signed By: 11/20/245 DD/ TD/TT: Feller Hand: [facility] Radiology Study observation (narrative) [facility] MM TOMOSYNTHESIS SCREENING B IOrdered By: Radiologist Radiology on 11-20-2024 [facility] Work Phone: Laboratory - Chemistry and C hemistry - challengeon 10-23-2024 Calcium [Mass/Vol] 9.1 mg/dL 8.5-10.1 [facility] Reminderson 10-11-2024 Reminders Reminders From: Taryn Acuna LPN To: GSN - Clinical; Sent: 10/11/2024 08:23:07 EDT Show up: 12/17/2024 07:00:00 EDT Subject: EGD recall Due Date/Time: 01/01/2025 07:00:00 EDT Reminder/Recall Patient due for EGD 01/01/2025 for history of gastric ulcer. Normal [facility] No Panel InformationOrdered By: Anup Pearl on 10-02-2024 Miscellaneous Pathology Test See comment [facility] Comment on above: See report. Scanned copy available in EMR. Pathology Request for Lab Co rpon 10-02-2024 Pathology Request for Lab Melodie Normal [facility] Comment on above: Order Comment: GI SP ECIMEN Result Comment: See report. Scanned copy available in EMR. PERFORMED BY: [place] [address] PATHOLOGIST SCALE MANAGER JOSHUA MARSHALL M.D. Performed By: #### P ATH TO [facility] #### [address] Ambulatory Visit Summaryon 0 09-24-2024 Ambulatory Visit Summary Ambulatory Visit Summary SADEMARLENAIOANA LYNN :1970 Visit Date:09/24/2024 Ambulatory Visit Instructions Your Care Team Attending Physician - DAE ROSALES, Anup Frias Primary Care Physician - TESS LEAHY MD This Is Your Medications List levothyroxine (Synthroid [...] for choosing us for your care. Normal [facility] IGP,APTIMA HPV,AGE GDLNon AGE GDLN ACOG TESTING Note . [facility] Comment on above: TESTS RESULT FLAG U NITS REF RANGE LAB Clinician Provided Cytology Information Source.............Cervix;Endocervix No. of containers..01 ThinPrep Vial Age Angelica TOTH Valencia... 31 FLAG LEGEND: L-Low Normal,H-High Normal,LL-Alert Low,HH-Alert High <-Panic Low,>-Panic High,A-Abnormal,AA-Critical Abnormal Performed at: 01 [address] [address] Lilo Ferrer MD, HPV APTIMA Negative Negative [facility] Comment on above: This nucleic acid am plification test detects fourteen high- risk HPV types (16,18,31,33,35,39,45,51,52,56,58,59,66,68) without differentiation. Performed at: =[address] [id number] Patient Care Associate: Lilo Ferrer MD, Phone: [phone] Performed at: [address] [id number] Patient Care Associate: Lilo Ferrer MD, Phone: [phone] IGP, APTIMA HPV, RFX 16/18,45 Note . [facility] Comment on above: TESTS RESULT FLAG UN ITS REF RANGE LAB DIAGNOSIS: 02 NEGATIVE FOR INTRAEPITHELIAL LESION OR MALIGNANCY. Specimen adequacy: 02 Satisfactory for evaluation. Endocervical and/or squamous metaplastic cells (endocervical component) are present. Performed by: 02 [address] [place] Crime Scene Evidence Technician . 02 Note: Note 02 The Pap [...] <-Panic Low,>-Panic High,A-Abnormal,AA-Critical Abnormal Performed at: [address] [address] Lilo Ferrer MD, BRUSH-SPATULA [facility]IX [facility] Basophils Auto (Bld) [#/Vol] on 02-14-2024 Basophils (Bld) [#/Vol] Automated basophil count 0.0-0.1 [facility] Basophils/100 WBC Auto (Bld) on 02-14-2024 Basophils/100 WBC (Bld) Automated basophil % 0. 2-2.0 [facility] Eosinophils/100 WBC Auto (Bl d)on 02-14-2024 Eosinophils/100 WBC (Bld) Automated eosinophil % High 0.9-7.0 [facility] Erythrocyte distribution wid th Auto (RBC) [Ratio]on 02-14-2024 Erythrocyte distribution width (RBC) [Ratio] Erythrocyte distribution width [Ratio] by Automated count 11.0-15.0 [facility] HCG ( test) IAtruman d Ql (U)on 02-14-2024 HCG ( test) Ql (U) Urine human chorionic gonadotropin (hCG) detection by immunoassay NEGATIVE [facility] Hematocrit Auto (Bld) [Volum e fraction]on 02-14-2024 Hematocrit (Bld) [Volume fraction] Hematocrit [Volume Fraction] of Blood by Automated count 36.0-48.0 [facility] Hemoglobin [Mass/volume] in Bloodon 02-14-2024 Hemoglobin (Bld) [Mass/Vol] Hemoglobin [Mass/volume] in Blood 12.0-16.0 [facility] Shahab 02-14-2024 L Specimen: [id number] Received: 02/15/24 Status: KATIE Quinn Num: [id number] Spec Type: Surgical Subm Dr: Anup Pearl MD FACS Tissues: A Esophagus Biopsy (ANTRAL ULCER BX) Procedures: HE/2, Gross/Micro L4 Age/ Patient Sex Location Account Attending Physician Ioana Marie 53/F LABELL [id number] Anup Pearl MD FACS SPEC NUM: [id number] RECD: 02/15/24 STATUS: KATIE QUINN NUM: [id number] CARYN: 02/14/[address]: Anup Pearl MD FACS ENTERED: 02/15/24 [facility] DR: Prerna Lee SPEC TYPE: Surgical DEPT: JEFRY TRUONG ENTERED BY: [id number] RECV BY: [id number] ORDERED: HE/2, Gross/Micro L4 ORDERED: HE/2, Gross/Micro [...] is entirely submitted in cassette A1. Specimen: [id number] Received: 02/15/24 Status: KATIE Quinn Num: [id number] Spec Type: Surgical Subm Dr: Anup Pearl MD FACS Tissues: A Esophagus Biopsy (ANTRAL ULCER BX) Procedures: HE/2, Gross/Micro L4 Patient: Ioana Marie [id number] (Continued) Specimen: [id number] Received: 02/15/24 (Continued) Signed (signature on file) Samantha Hirsch MD 02/23/24 0923 Specimen: [id number] Received: 02/15/24 Status: KATIE Quinn Num: [id number] Spec Type: Surgical Subm Dr: Anup Pearl MD FACS Tissues: A Esophagus Biopsy (ANTRAL ULCER BX) Procedures: HE/2, Gross/Micro L4 Patient: Ioana Marie [id number] (Continued) Specimen: [id number] Received: 02/15/24 (Continued) Microscopic Description Microscopic examinations are performed supporting the above interpretation CPT Codes 43791 Specimen: [id number] Received: 02/15/24 Status: KATIE Quinn Num: [id number] Spec Type: Surgical Subm Dr: Anup Pearl MD FACS Tissues: A Esophagus Biopsy (ANTRAL ULCER BX) Procedures: HE/2, Gross/Micro L4 Patient: Ioana Marie [id number] (Continued) Signed (signature on file) Samantha Hirsch MD 02/23/249[address] Normal [facility] Laboratory - Hematology and Cell countson 02-14-2024 Immature granulocytes/100 WBC (Bld) 0.2 % 0.0-0.5 [facility] Leukocytes [#/volume] correc stephanie for nucleated erythrocytes in Blood by Automated counon 02-14-2024 WBC corrected for nucl RBC Auto (Bld) [#/Vol] Leukocytes [#/volume] corrected for nucleated erythrocytes in Blood by Automated coun 4.0-11.0 [facility] Lymphocytes Auto (Bld) [#/Vo l]on 02-14-2024 Lymphocytes (Bld) [#/Vol] Lymphocytes [#/volume] in Blood by Automated count 1.2-3.8 [facility] Lymphocytes/100 WBC Auto (Bl d)on 02-14-2024 Lymphocytes/100 WBC (Bld) Lymphocytes/100 leukocytes in Blood by Automated count 20.5-60.0 [facility] MCH Auto (RBC) [Entitic mass ]on 02-14-2024 MCH (RBC) [Entitic mass] MCH [Entitic mass] by Automated count 26.7-34.0 [facility] MCHC Auto (RBC) [Mass/Vol]on 02-14-2024 MCHC (RBC) [Mass/Vol] MCHC [Mass/volume] by Automated count 29.9-35.2 [facility] MCV Auto (RBC) [Entitic vol] on 02-14-2024 MCV (RBC) [Entitic vol] MCV [Entitic vol ume] by Automated count 81.0-99.0 [facility] Monocytes Auto (Bld) [#/Vol] on 02-14-2024 Monocytes (Bld) [#/Vol] Automated blood monocyte count 0.3-0.8 [facility] Monocytes/100 WBC Auto (Bld) on 02-14-2024 Monocytes/100 WBC (Bld) Automated monocyte % 1. 7-12.0 [facility] Neutrophils Auto (Bld) [#/Vo l]on 02-14-2024 Neutrophils (Bld) [#/Vol] Neutrophils [#/volume] in Blood by Automated count 1.4-6.5 [facility] Neutrophils/100 WBC Auto (Bl d)on 02-14-2024 Neutrophils/100 WBC (Bld) Automated neutrophil % Low 43.0-75.0 [facility] No Panel Informationon 02-13 Eosinophils # (Auto) 1.2 10 3/uL High 0.0-0.7 [facility] Immature Granulocyte # (Auto) 0.01 10 3/uL 0.00-0.03 [facility] Platelet mean volume Auto (B ld) [Entitic vol]on 02-14-2024 Platelet mean volume (Bld) [Entitic vol] Platelet mean volume [Entitic volume] in Blood by Automated count 9.5-13.5 [facility] Platelets Auto (Bld) [#/Vol] on 02-14-2024 Platelets (Bld) [#/Vol] Platelets [#/vol ume] in Blood by Automated count 150-450 [facility] RBC Auto (Bld) [#/Vol]on RBC (Bld) [#/Vol] Erythrocytes [#/volu me] in Blood by Automated count 4.20-5.40 [facility] Basophils Auto (Bld) [#/Vol] on 11-14-2023 Basophils (Bld) [#/Vol] 0.1 10 3/uL 0.0-0.1 [facility] Basophils/100 WBC Auto (Bld) on 11-14-2023 Basophils/100 WBC (Bld) 0.8 % 0.2-2.0 [facility] Cholesterol in LDL Calc [Mas s/Vol]on 11-14-2023 Cholesterol in LDL [Mass/Vol] 88.0 mg/dL [facility] Comment on above: <100 mg/dl [id number] 0-129 mg/dl NEAR OR ABOVE [id number] mg/dl BORDERLINE [id number] mg/dl HIGH>190 mg/dl VERY HIGH Cholesterol in VLDL Calc [Ma ss/Vol]on 11-14-2023 Cholesterol in VLDL [Mass/Vol] 10.2 mg/dL [facility] Eosinophils/100 WBC Auto (Bl d)on 11-14-2023 Eosinophils/100 WBC (Bld) 11.7 % 0.9-7.0 [facility] Erythrocyte distribution wid th Auto (RBC) [Ratio]on 11-14-2023 Erythrocyte distribution width (RBC) [Ratio] 12.0 % 11.0-15.0 [facility] Estimated glomerular filtrat ion rate (GFR) non- Americanon 11-14-2023 GFR/1.73 sq M.predicted among non-blacks MDRD (S/P/Bld) [Vol rate/Area] mL/min/{1.73_m2} >=60 [facility] Globulin Calc (S) [Mass/Vol] on 11-14-2023 Globulin (S) [Mass/Vol] 3.4 g/dL F [facility] Hematocrit Auto (Bld) [Volum e fraction]on 11-14-2023 Hematocrit (Bld) [Volume fraction] 39.6 % 36.0-48.0 [facility] Hemoglobin [Mass/volume] in Bloodon 11-14-2023 Hemoglobin (Bld) [Mass/Vol] 13.2 g/dL 12.0-16.0 [facility] Laboratory - Chemistry and C hemistry - challengeon 11-14-2023 Albumin [Mass/Vol] 3.4 g/dL 3.4-5.0 [facility] ALP [Catalytic activity/Vol] 51 U/L 46-116 [facility] ALT [Catalytic activity/Vol] 16 U/L 14-59 [facility] AST [Catalytic activity/Vol] 21 U/L 15-37 [facility] Bilirubin [Mass/Vol] 1.1 mg/dL 0.2-1.0 [facility] Calcium [Mass/Vol] 8.7 mg/dL 8.5-10.1 [facility] Chloride [Moles/Vol] 103 mmol/L 98-107 [facility] Cholesterol [Mass/Vol] 177 mg/dL <=200 [facility] Cholesterol in HDL [Mass/Vol] 79 mg/dL 40-60 [facility] Comment on above: > or =60 mg/dl - LOW CARDIOVASCULAR RISK<40 mg/dl - HIGH CARDIOVASCULAR RISK CO2 [Moles/Vol] 27.1 mmol/L 21.0-32.0 [facility] Creatinine [Mass/Vol] 0.81 mg/dL 0.55-1.02 [facility] GFR/1.73 sq M.predicted MDRD (S/P/Bld) [Vol rate/Area] mL/min/{1.73_m2} >=60 [facility] Glucose [Mass/Vol] 92 mg/dL 74-106 [facility] Potassium [Moles/Vol] 4.4 mmol/L 3.5-5.1 [facility] Protein [Mass/Vol] 6.8 g/dL 6.4-8.2 [facility] Sodium [Moles/Vol] 137 mmol/L 136-145 [facility] Triglyceride [Mass/Vol] 51 mg/dL <=150 F [facility] Urea nitrogen [Mass/Vol] 21.0 mg/dL 7.0-18.0 [facility] Urea nitrogen/Creatinine [Mass ratio] 25.9 mg/mg [facility] Laboratory - Hematology and Cell countson 11-14-2023 Immature granulocytes/100 WBC (Bld) 0.2 % 0.0-0.5 [facility] Leukocytes [#/volume] correc stephanie for nucleated erythrocytes in Blood by Automated counon 11-14-2023 WBC corrected for nucl RBC Auto (Bld) [#/Vol] 8.4 10 3/uL 4.0-11.0 [facility] Lymphocytes Auto (Bld) [#/Vo l]on 11-14-2023 Lymphocytes (Bld) [#/Vol] 1.7 10 3/uL 1.2-3.8 [facility] Lymphocytes/100 WBC Auto (Bl d)on 11-14-2023 Lymphocytes/100 WBC (Bld) 20.5 % 20.5-60.0 [facility] MCH Auto (RBC) [Entitic mass ]on 11-14-2023 MCH (RBC) [Entitic mass] 31.7 pg 26.7-34.0 [facility] MCHC Auto (RBC) [Mass/Vol]on 11-14-2023 MCHC (RBC) [Mass/Vol] 33.3 g/dL 29.9-35.2 [facility] MCV Auto (RBC) [Entitic vol] on 11-14-2023 MCV (RBC) [Entitic vol] 95.2 fL 81.0-99.0 F [facility] Monocytes Auto (Bld) [#/Vol] on 11-14-2023 Monocytes (Bld) [#/Vol] 0.5 10 3/uL 0.3-0.8 [facility] Monocytes/100 WBC Auto (Bld) on 11-14-2023 Monocytes/100 WBC (Bld) 5.5 % 1.7-12.0 [facility] Neutrophils Auto (Bld) [#/Vo l]on 11-14-2023 Neutrophils (Bld) [#/Vol] 5.2 10 3/uL 1.4-6.5 [facility] Neutrophils/100 WBC Auto (Bl d)on 11-14-2023 Neutrophils/100 WBC (Bld) 61.3 % 43.0-75.0 [facility] No Panel Informationon 11-13 Eosinophils # (Auto) 1.0 10 3/uL 0.0-0.7 [facility] Immature Granulocyte # (Auto) 0.02 10 3/uL 0.00-0.03 [facility] Platelet mean volume Auto (B ld) [Entitic vol]on 11-14-2023 Platelet mean volume (Bld) [Entitic vol] 10.3 fL 9.5-13.5 [facility] Platelets Auto (Bld) [#/Vol] on 11-14-2023 Platelets (Bld) [#/Vol] 235 10 3/uL 150-450 [facility] RBC Auto (Bld) [#/Vol]on RBC (Bld) [#/Vol] 4.16 10 6/uL 4.20-5.40 [facility] Serum or plasma albumin/glob ulin mass ratioon 11-14-2023 Albumin/Globulin [Mass ratio] 1.0 {ratio} [facility] Serum or plasma anion gap de terminationon 11-14-2023 Anion gap [Moles/Vol] 11.3 mmol/L [facility] Serum or plasma total choles terol/high density lipoprotein (HDL) cholesterol mass abdirashid 11-14-2023 Cholesterol.total/Shelley sterol in HDL [Mass ratio] 2.2 {ratio} [facility] Comment on above: 3.3 - 4.4 LOW RISK4. 4 - 7.1 AVERAGE RISK7.1 - 11.0 MODERATE RISK>11.0 HIGH RISK Glucose mean value [Mass/vol ume] in Blood Estimated from glycated hemoglobinon 11-07-2023 Average glucose Estimated from glycated hemoglobin (Bld) [Mass/Vol] 105 mg/dL [facility] Laboratory - Chemistry and C hemistry - challengeon 11-07-2023 Ferritin [Mass/Vol] 35.0 ng/mL 8.0-252.0 [facility] Free T4 [Mass/Vol] 0.96 ng/dL 0.76-1.46 [facility] Glucose [Mass/Vol] 88 mg/dL 74-106 [facility] T4 [Mass/Vol] 7.70 ug/dL 4.80-13.90 [facility] TSH Qn 2.126 m[IU]/L 0.358-3.74 0 [facility] Laboratory - Hematology and Cell countson 11-07-2023 HbA1c (Bld) [Mass fraction] 5.3 % 4.5-6.2 [facility] Comment on above: ADA RECOMMENDED LIMI T 4.0 - 6.0ADA THERAPEUTIC TARGET < 7.0ACTION SUGGESTED> 7.0 No Panel Informationon 11-06 25-Hydroxy Vitamin D Total 29.1 ng/mL [facility] Comment on above: <20 ng/mL Vit D defi cient20-<30 ng/mL Vit D euughinssydo85-711 ng/mL Vit D sufficient>100 ng/mL Potential Toxicity C-Peptide 1.4 ng/mL 1.1-4.4 [facility] Comment on above: C-Peptide reference interval is for fasting patients. C-Peptide reference interval is for fasting patients. Dehydroepiandrosterone Sulfate 79.4 ug/dL 41.2-243.7 [facility] Free Cortisol, Dialysis, LCMS 0.524 ug/dL . [facility] Comment on above: These tests were dev eloped and their performancecharacteristics determined by [facility]. They have not beencleared or approved by the Food and Drug Administration.Reference Range:8 AM 0.10 - 1.204 PM 0.042 - 0.872Performed at: [facility] [employer] [address] [id number] Director: Shvi Padron MD, Phone: [phone] Free Triiodothyronine 2.33 pg/mL 2.18-3.98 [facility] Reverse Triiodothyronine (T3) 16.0 ng/dL 9.2-24.1 [facility] Comment on above: This test was develo ped and its performance characteristicsdetermined by [facility]. It has not been cleared orapproved by the Food and Drug Administration.Performed at: [address] [id number] Director: Jennifer Ruff MD, Phone: [phone] Sex Hormone Binding Globulin 107.0 nmol/L 17.3-125.0 [facility] Comment on above: Performed at: [facility] [employer] [id number] [place], [place] [id number] Director: Mark Gallardo PhD, Phone: [phone] Performed at: [facility] [employer] [id number] [place], [place] [id number] Director: Mark Gallardo PhD, Phone: [phone] Testosterone Level 15 ng/dL 4-50 [facility] Serotonin (P) [Mass/Vol]on 0 11-07-2023 Serotonin 170 ng/mL 31-207 [facility] Comment on above: This test was develo ped and its performance characteristicsdetermined by [employer]. It has not been cleared orapproved by the Food and Drug Administration.Performed at: [facility] [employer] [id number] Director: Jennifer Ruff MD, Phone: [phone] This test was develo ped and its performance characteristicsdetermined by [employer]. It has not been cleared orapproved by the Food and Drug Administration.Performed at: [employer] [id number] Director: Jennifer Ruff MD, Phone: [phone] Serum estrone measurementon 11-07-2023 E1 [Mass/Vol] 106 pg/mL . [facility] Comment on above: Range Adult (Premeno pausal) 27 - 231 Menstrual Cycle (1-10 days) 19 - 149 Menstrual Cycle (11-20 days) 32 - 176 Menstrual Cycle (21-30 days) 37 - 200 Adult (Postmenopausal) 0 - 125Performed at: [facility] [employer] [id number] Director: Jennifer Ruff MD, Phone: [phone] Serum or plasma estradiol (E 2) measurement (mass/volume)on 11-07-2023 E2 [Mass/Vol] 238.0 pg/mL . [facility] [facility] Comment on above: Adult Female Range F ollicular phase 12.5 - 166.0 Ovulation phase 85.8 - 498.0 Luteal phase 43.8 - 211.0 Postmenopausal <6.0 - 54.7 1st trimester 215.0 - >4300.0Roche ECLIA methodology Serum or plasma insulin hanna urement (units/volume)on 11-07-2023 Insulin Qn 3.5 u[iU]/mL 2.6-24.9 [facility] Comment on above: Performed at: [employer] [address] [id number] Director: Mark Gallardo PhD, Phone: [phone] Serum or plasma progesterone measurement (mass/volume)on 11-07-2023 Progesterone [Mass/Vol] 0.5 ng/mL . [facility] Comment on above: Follicular phase 0.1 - 0.9 Luteal phase 1.8 - 23.9 Ovulation phase 0.1 - 12.0 First trimester 11.0 - 44.3 Second trimester 25.4 - 83.3 Third trimester 58.7 - 214.0 Postmenopausal 0.0 - 0.1 TPO Ab Qnon 11-07-2023 Thyroid Peroxidase Antibodies 382 [IU]/mL 0-34 [facility] Testosterone Free [Mass/Vol] on 11-07-2023 Free Testosterone 0.8 pg/mL 0.0-4.[address] [facility] Comment on above: Performed at: [employer] [place] [address] [id number] Director: Mark Gallardo PhD, Phone: [phone] at: [employer] [address] [id number] Director: Jennifer Ruff MD, Phone: [phone] Performed at: [employer] [place] [address] [id number] Director: Mark Gallardo PhD, Phone: [phone] at: [employer] [address] [id number] Director: Jennifer Ruff MD, Phone: [phone] Thyroglobulin Ab [facility] 2023 Anti-Thyroglobulin Antibody 933.8 [IU]/mL 0.0-0.9 [facility] Comment on above: Thyroglobulin Antibo dy measured by [employer]ologyIt should be noted that the presence of thyroglobulinantibodies may not be pathogenic nor diagnostic, especiallyat very low levels. The assay international organizer has found thatfour percent of individuals without evidence of thyroiddisease or autoimmunity will have positive TgAb levels upto 4 IU/mL.Performed at: [address] [id number] Director: Mark Gallardo PhD, Phone: [phone] Thyroglobulin Antibo dy measured by [employer]ologyIt should be noted that the presence of thyroglobulinantibodies may not be pathogenic nor diagnostic, especiallyat very low levels. The assay international organizer has found thatfour percent of individuals without evidence of thyroiddisease or autoimmunity will have positive TgAb levels upto 4 IU/mL.Performed at: [address] [id number] Director: Mark Gallardo PhD, Phone: [phone] Thyroglobulin Antibo dy measured by [employer]ise[employer]ologyIt should be noted that the presence of thyroglobulinantibodies may not be pathogenic nor diagnostic, especiallyat very low levels. The assay international organizer has found thatfour percent of individuals without evidence of thyroiddisease or autoimmunity will have positive TgAb levels upto 4 IU/mL.Performed at: [facility] [employer] [id number] Director: Mark Gallardo PhD, Phone: [phone] Thyroglobulin [Mass/volume] in Serum or Plasmaon 11-07-2023 Thyroglobulin [Mass/Vol] 9.4 ng/mL . [facility] Comment on above: This test was develo ped and its performance characteristicsdetermined by [employer]. It has not been cleared or approvedby [...] assay quantitation limit is 2.0 ng/mL.Performed at: [facility] [employer] [id number] [place], [place] [id number] Director: Shiv Padron MD, Phone: [phone] HCG ( test) Nini lozano Ql (U)on 10-11-2023 HCG ( test) Ql (U) Negative NEGATIVE [facility] Shahab 10-11-2023 L Specimen: [id number] Received: 10/11/23 Status: SOUWade Req Num: [id number] Spec Type: Surgical Subm Dr: Anup Pearl MD FACS Tissues: A Stomach - Biopsy/Polyp (ANTRUM BX) Procedures: HE/2, Gross/Micro L4 Age/ Patient Sex Location Account Attending Physician Ioana Marie 52/F LABELL [id number] Anup Pearl MD FACS SPEC NUM: [id number] RECD: 10/11/23 STATUS: KATIE REQ NUM: [id number] CARYN: 10/11/[address] [facility] [address]: Anup Pearl MD FACS ENTERED: 10/11/23 [facility] DR: Prerna Lee SPEC TYPE: Surgical DEPT: [...] Antral ulcer, small hiatal hernia CPT Codes 17794, 32115 Specimen: [id number] Received: 10/11/23 Status: KATIE Quinn Num: [id number] Spec Type: Surgical Subm Dr: Anup Pearl MD FACS Tissues: A Stomach - Biopsy/Polyp (ANTRUM BX) Procedures: HE/2, Gross/Micro L4 Patient: Ioana Marie [id number] (Continued) Signed (signature on file) Joshua Marshall MD 10/12/23 1548 Normal [facility] MG MAMM SCREEN 3D CHRISTAL CADon 11-11-2022 MG MAMM SCREEN 3D CHRISTAL CAD Patient: IOANA MARIE Exam Date: 11/11/2022 : 1970 Gender:F Ordering : DR TRISTON VELAZQUEZ . Admission #: [id number] Family : Order #: [id number] CLICK HERE TO VIEW EXAM RADIOLOGY REPORT [...] breast cancer at age 69. LOCATION: [facility] BREAST COMPOSITION: Extremely dense, which lowers [...] Andrade MD on 11/11/2022 at 13:58 Normal [facility] CBC AUTO DIFFon 11-01-2022 BASO # 0.1 103/ul Normal 0.0-0.1 [facility] Comment on above: Performed By: #### C BC #### [facility] [address] [place] [address] Dr. Edelmira Hirsch Basophils/100 WBC (Bld) 1.0 % Normal 0.2-2.0 [facility] Comment on above: Performed By: #### C BC #### [facility] [address] [place] [address] Dr. Edelmira Hirsch EO # 1.0 103/ul Critically high 0.0-0.7 [facility] Comment on above: Performed By: #### C BC #### [facility] [address] [place] [address] Dr. Edelmira Hirsch Eosinophils/100 WBC (Bld) 13.9 % Critically high 0.9-7.0 [facility] Comment on above: Performed By: #### C BC #### [facility] [address] [place] [address] Dr. Edelmira Hirsch Erythrocyte distribution width (RBC) [Ratio] 12.2 % Normal 11.0-15.0 [facility] Comment on above: Performed By: #### C BC #### [facility] [address] [place] [address] Dr. Edelmira Hirsch Hematocrit (Bld) [Volume fraction] 40.5 % Normal 36.0-48.0 [facility] Comment on above: Performed By: #### C BC #### [facility] [address] [place] [address] Dr. Edelmira Hirsch Hemoglobin (Bld) [Mass/Vol] 13.8 g/dL Normal 12.0-16.0 [facility] Comment on above: Performed By: #### C BC #### [facility] [address] [place] [address] Dr. Edelmira Hirsch IG # 0.02 10e3/ul Normal 0.00-0.03 [facility] Comment on above: Performed By: #### C BC #### [facility] [address] [place] [address] Dr. Edelmira Hirsch IG % 0.3 % Normal 0.0-0.5 [facility] Comment on above: Performed By: #### C BC #### [facility] [address] [place] [address] Dr. Edelmira Hirsch LYMPH # 1.8 103/ul Normal 1.2-3.8 [facility] Comment on above: Performed By: #### C BC #### [facility] [address] [place] [address] Dr. Edelmira Hirsch Lymphocytes/100 WBC (Bld) 24.6 % Normal 20.5-60.0 [facility] Comment on above: Performed By: #### C BC #### [facility] [address] [place] [address] Dr. Edelmira Hirsch MANUAL DIFF REQ NO Normal [facility] Comment on above: Performed By: #### C BC #### [facility] [address] [place] [address] Dr. Edelmira Hirsch MCH (RBC) [Entitic mass] 32.2 pg Normal 26.7-34.0 [facility] Comment on above: Performed By: #### C BC #### [facility] [address] [place] [address] Dr. Edelmira Hirsch MCHC (RBC) [Mass/Vol] 34.1 g/dL Normal 29.9-35.2 [facility] Comment on above: Performed By: #### C BC #### [facility] [address] [place] [address] Dr. Edelmira Hirsch MCV (RBC) [Entitic vol] 94.6 fL Normal 81.0-99.0 [facility] Comment on above: Performed By: #### C BC #### [facility] [address] [place] [address] Dr. Edelmira Hirsch MONO # 0.5 103/ul Normal 0.3-0.8 [facility] Comment on above: Performed By: #### C BC #### [facility] [address] [place] [address] Dr. Edelmira Hirsch Monocytes/100 WBC (Bld) 6.5 % Normal 1.7-12.0 [facility] Comment on above: Performed By: #### C BC #### [facility] [address] [place] [address] Dr. Edelmira Hirsch NEUT # 3.8 103/ul Normal 1.4-6.5 [facility] Comment on above: Performed By: #### C BC #### [facility] [address] [place] [address] Dr. Edelmira Hirsch Neutrophils/100 WBC (Bld) 53.7 % Normal 43.0-75.0 [facility] Comment on above: Performed By: #### C BC #### [facility] [address] [place] [address] Dr. Edelmira Hirsch Platelet mean volume (Bld) [Entitic vol] 10.0 fL Normal 9.5-13.5 [facility] Comment on above: Performed By: #### C BC #### [facility] [address] [place] [address] Dr. Edelmira Hirsch PLT 276 103/ul Normal 150-450 [facility] Comment on above: Performed By: #### C BC #### [facility] [address] [place] [address] Dr. Edelmira Hirsch RBC 4.28 106/ul Normal 4.20-5.40 [facility] Comment on above: Performed By: #### C BC #### [facility] [address] [place] [address] Dr. Edelmira Hirsch WBC 7.1 103/ul Normal 4.0-11.0 [facility] Comment on above: Performed By: #### C BC #### [facility] [address] [place] [address] Dr. Edelmira Hirsch GLYCOHEMOGLOBIN A1Con 2022 ADA RECOMMENDATION SEE BELOW Normal [facility] Comment on above: Result Comment: ADA RECOMMENDED LIMIT 4.0 - 6.0 ADA THERAPEUTIC TARGET < 7.0 ACTION SUGGESTED > 7.0 Performed By: #### A 1C #### [facility] [address] [place] [address] Dr. Edelmira Hirsch Glucose [Mass/Vol] 100 mg/dL Normal [facility] Comment on above: Performed By: #### A 1C #### [facility] [address] [place] [address] Dr. Edelmira Hirsch HbA1c (Bld) [Mass fraction] 5.1 % Normal 4.5-6.2 [facility] Comment on above: Performed By: #### A 1C #### [facility] [address] [place] [address] Dr. Edelmira Hirsch LIPID PROFILEon 11-01-2022 CHOL-HDL RATIO NORM SEE BELOW Normal [facility] Comment on above: Result Comment: 3.3 - 4.4 LOW RISK 4.4 - 7.1 AVERAGE RISK 7.1 - 11.0 MODERATE RISK >11.0 HIGH RISK Performed By: #### L IPID, CMP, TSH #### [facility] [address] [place] [address] Dr. Edelmira Hirsch Cholesterol [Mass/Vol] 164 mg/dL Normal <=200 Th [facility] Comment on above: Performed By: #### L IPID, CMP, TSH #### [facility] [address] [address] [address] Edelmira Hirsch Cholesterol in HDL [Mass/Vol] 80 mg/dL Critically high 40-60 [facility] Comment on above: Performed By: #### L IPID, CMP, TSH #### [facility] [address] [address] [address] Edelmira Hirsch Cholesterol in LDL [Mass/Vol] 76.8 mg/dL Normal [facility] Comment on above: Performed By: #### L IPID, CMP, TSH #### [facility] [address] [address] [address] Edelmira Hirsch Cholesterol.total/Hselley sterol in HDL [Mass ratio] 2.1 {ratio} Normal [facility] Comment on above: Performed By: #### L IPID, CMP, TSH #### [facility] [address] [address] [address] Edelmira Hirsch HDL NORMAL > or = 60 mg/dl - LO W CARDIOVASCULAR RISK <40 mg/dl - HIGH CARDIOVASCULAR RISK Normal [facility] Comment on above: Performed By: #### L IPID, CMP, TSH #### [facility] [address] [address] [address] Edelmira Hirsch LDL CALC NORMAL SEE BELOW Normal [facility] Comment on above: Result Comment: <100 mg/dl OPTIMAL 100 - 129 mg/dl NEAR OR ABOVE OPTIMAL 130 - 159 mg/dl BORDERLINE HIGH 160 - 189 mg/dl HIGH >190 mg/dl VERY HIGH Performed By: #### L IPID, CMP, TSH #### [facility] [address] [address] [address] Edelmira Hirsch Triglyceride [Mass/Vol] 36 mg/dL Normal <=150 T [facility] Comment on above: Performed By: #### L IPID, CMP, TSH #### [facility] [address] [address] [address] Edelmira Hirsch VLDL CALC 7.2 mg/dL Normal [facility] Comment on above: Performed By: #### L IPID, CMP, TSH #### [facility] [address] [address] [address] Edelmira Hirsch PROF 14(COMP METB)on 023 Albumin [Mass/Vol] 3.5 g/dL Normal 3.4-5.0 [facility] Comment on above: Performed By: #### L IPID, CMP, TSH #### [facility] [address] [address] [address] Edelmira Hirsch Albumin/Globulin [Mass ratio] 0.9 {ratio} Normal [facility] Comment on above: Performed By: #### L IPID, CMP, TSH #### [facility] [address] [address] [address] Edelmira Hirsch ALP [Catalytic activity/Vol] 51 U/L Normal 46-116 [facility] Comment on above: Performed By: #### L IPID, CMP, TSH #### [facility] [address] [address] [address] Edelmira Hirsch ALT [Catalytic activity/Vol] 23 U/L Normal 14-59 [facility] Comment on above: Performed By: #### L IPID, CMP, TSH #### [facility] [address] [address] [address] Edelmira Hirsch Anion gap [Moles/Vol] 11.2 mmol/L Normal [facility] Comment on above: Performed By: #### L IPID, CMP, TSH #### [facility] [address] [address] [address] Edelmira Hirsch AST [Catalytic activity/Vol] 18 U/L Normal 15-37 [facility] Comment on above: Performed By: #### L IPID, CMP, TSH #### [facility] [address] [address] [address] Edelmira Hirsch Bilirubin [Mass/Vol] 0.9 mg/dL Normal 0.2-1.0 [facility] Comment on above: Performed By: #### L IPID, CMP, TSH #### [facility] [address] [address] [address] Edelmira Hirsch Calcium [Mass/Vol] 9.4 mg/dL Normal 8.5-10.1 [facility] Comment on above: Performed By: #### L IPID, CMP, TSH #### [facility] [address] [address] [address] Edelmira Hirsch Chloride [Moles/Vol] 104 mmol/L Normal 98-107 [facility] Comment on above: Performed By: #### L IPID, CMP, TSH #### [facility] [address] [place] [address] Dr. Edelmira Hirsch CO2 [Moles/Vol] 29.5 mmol/L Normal 21.0-32.0 [facility] Comment on above: Performed By: #### L IPID, CMP, TSH #### [facility] [address] [place] [address] Dr. Edelmira Hirsch Creatinine [Mass/Vol] 0.86 mg/dL Normal 0.55-1.02 [facility] Comment on above: Performed By: #### L IPID, CMP, TSH #### [facility] [address] [place] [address] Dr. Edelmira Hirsch EGFR-AF STATELESS >60 Normal >=60 [facility] Comment on above: Performed By: #### L IPID, CMP, TSH #### [facility] [address] [place] [address] Dr. Edelmira Hirsch EGFR-NON AF STATELESS >60 Normal >=60 [facility] Comment on above: Performed By: #### L IPID, CMP, TSH #### [facility] [address] [place] [address] Dr. Edelmira Hirsch Globulin (S) [Mass/Vol] 3.7 g/dL Normal T [facility] Comment on above: Performed By: #### L IPID, CMP, TSH #### [facility] [address] [place] [address] Dr. Edelmira Hirsch Glucose [Mass/Vol] 97 mg/dL Normal 74-106 [facility] Comment on above: Performed By: #### L IPID, CMP, TSH #### [facility] [address] [place] [address] Dr. Edelmira Hirsch Potassium [Moles/Vol] 4.7 mmol/L Normal 3.5-5.1 [facility] Comment on above: Performed By: #### L IPID, CMP, TSH #### [facility] [address] [place] [address] Dr. Edelmira Hirsch Protein [Mass/Vol] 7.2 g/dL Normal 6.4-8.2 [facility] Comment on above: Performed By: #### L IPID, CMP, TSH #### [facility] [address] [place] [address] Dr. Edelmira Hirsch Sodium [Moles/Vol] 140 mmol/L Normal 136-145 [facility] Comment on above: Performed By: #### L IPID, CMP, TSH #### [facility] [address] [place] [address] Dr. Edelmira Hirsch Urea nitrogen [Mass/Vol] 14.0 mg/dL Normal 7.0-18.0 [facility] Comment on above: Performed By: #### L IPID, CMP, TSH #### [facility] [address] [place] [address] Dr. Edelmira Hirsch Urea nitrogen/Creatinine [Mass ratio] 16.3 mg/mg Normal [facility] Comment on above: Performed By: #### L IPID, CMP, TSH #### [facility] [address] [place] [address] Dr. Edelmira Hirsch TSHon 11-01-2022 TSH 2.540 uIU/mL Normal 0.358-3.74 0 [facility] Comment on above: Performed By: #### L IPID, CMP, TSH #### [facility] [address] [place] [address] Dr. Edelmira Hirsch PAP ACOG PANEL 2: 30 to 65on 06-27-2022 . . Normal [facility] Comment on above: Result Comment: Perf ormed at: WB Performed By: #### 4 [id number] #### [facility] [address] [place] [address] Dr. Edelmira Hirsch Age Gdln ACOG Testing 30-65 Normal [facility] Comment on above: Performed By: #### 4 [id number] #### [facility] [address] [place] [address] Dr. Edelmira Hirsch DIAGNOSIS: Comment Normal [facility] Comment on above: Result Comment: NEGA TIVE FOR INTRAEPITHELIAL LESION OR MALIGNANCY. Performed at: WB Performed By: #### 4 [id number] #### [facility] [address] [place] [address] Dr. Edelmira Hirsch HPV Aptima Negative Normal Negative [facility] Comment on above: Result Comment: This nucleic acid amplification test detects fourteen high-risk HPV types (16,18,31,33,35,39,45,51,52,56,58,59,66,68) without differentiation. Performed at: =G Performed By: #### 4 [id number] #### [facility] [address] [place] [address] Dr. Edelmira Hirsch HPV Genotype Reflex Comment Normal [facility] Comment on above: Result Comment: Crit eria not met, HPV Genotype not performed. Performed at: WB Performed By: #### 4 [id number] #### [facility] [address] [place] [address] Dr. Edelmira Hirsch Methodology: Comment Normal [facility] Comment on above: Result Comment: This liquid based ThinPrep(R) pap test was screened with the use of an image guided system. Performed at: WB Performed By: #### 4 [id number] #### [facility] [address] [place] [address] Dr. Edelmira Hirsch Note: Comment Normal [facility] Comment on above: Result Comment: The Pap smear is a screening test designed to aid in the detection of premalignant and malignant conditions of the uterine cervix. It is not a diagnostic procedure and should not be used as the sole means of detecting cervical cancer. Both false-positive and false-negative reports do occur. . Performed at: WB Performed By: #### 4 [id number] #### [facility] [address] [place] [address] Dr. Edelmira Hirsch Performed by: Comment Normal [facility] Comment on above: Result Comment: Aury Andrade, Crime Scene Evidence Technician (ASCP) Performed at: WB Performed By: #### 4 [id number] #### [facility] [address] [place], [place] [address] Dr. Edelmira Hirsch Specimen adequacy: Comment Normal [facility] Comment on above: Result Comment: Sati sfactory for evaluation. Endocervical and/or squamous metaplastic cells (endocervical component) are present. Performed at: WB Performed By: #### 4 [id number] #### [facility] [address] [address] [address] Edelmira Hirsch Nicotine and Metabolite, Harlan nt LCon 04-04-2021 Cotinine LC <1.0 Invalid Interpretation Code [facility] Comment on above: Result Comment: This test was developed and its performance characteristics determined by [employer]. It has not been cleared or approved by the Food and Drug Administration. Cotinine levels greater than 20.0 are consistent with the use of tobacco or tobacco cessation products. Performed At: [address] [id number] Speedy Rodriguez MD Ph:[phone] Performed By: #### 1 [id number], [id number], [id number], [id number], [id number], [id number] #### [facility] (DEFAULT) [address] [place] [address] Nicotine LC <1.0 Invalid Interpretation Code [facility] Comment on above: Result Comment: This test was developed and its performance characteristics determined by [employer]. It has not been cleared or approved by the Food and Drug Administration. Nicotine levels greater than 2.0 are consistent with the use of tobacco or tobacco cessation products. Performed By: #### 1 [id number], [id number], [id number], [id number], [id number], [id number] #### [facility] (DEFAULT) [address] [place] [address] .Auto Diff 1on 03-30-2021 Auto Lanier % 7 % Normal 06-[address] [facility] Comment on above: Performed By: #### 1 [id number], [id number], [id number], [id number], [id number], [id number] #### [facility] (DEFAULT) [address] [place] [address] 02880 Baso Abs# 0.0 x10 Normal 0.0-0.[address] [facility] Comment on above: Performed By: #### 1 [id number], [id number], [id number], [id number], [id number], [id number] #### [facility] (DEFAULT) [address] [place] [address] 44159 Basophils/100 WBC (Bld) 0.4 % Normal 0.2-2.0 [facility] Comment on above: Performed By: #### 1 [id number], [id number], [id number], [id number], 96977920, 7333613 #### [facility] (DEFAULT) [address] [place] [address]201 Eos Abs# 1.0 x10 High 0.0-0.[address] [facility] Comment on above: Performed By: #### 1 [id number], [id number], [id number], [id number], 62650759, [id number] #### [facility] (DEFAULT) [address] [place] [address] 96468 Eosinophils/100 WBC (Bld) 13.5 % High 0.9-4.[address] [facility] Comment on above: Performed By: #### 1 [id number], [id number], [id number], [id number], 76496485, 1062316 #### [facility] (DEFAULT) [address] [place] [address] Lymph Abs# 2.1 x10 Normal 1.3-2.[address] [facility] Comment on above: Performed By: #### 1 [id number], [id number], [id number], [id number], 86239438, 1978405 #### [facility] (DEFAULT) [address] [place] [address] 72714 Lymphocytes/100 WBC (Bld) 29 % Normal 14-[address] [facility] Comment on above: Performed By: #### 1 [id number], [id number], [id number], [id number], 47575895, 2141576 #### [facility] (DEFAULT) [address] [place] [address]7929 Lanier Abs# 0.5 x10 Normal 0.0-0.[address] [facility] Comment on above: Performed By: #### 1 [id number], [id number], [id number], [id number], 44952065, 9046216 #### [facility] (DEFAULT) [address] [place] [address] Neut Abs# 3.5 x10 Normal 1.5-9.[address] [facility] Comment on above: Performed By: #### 1 [id number], [id number], [id number], [id number], 79085908, 3356543 #### [facility] (DEFAULT) [address] [place] [address] Neutrophils/100 WBC (Bld) 50 % Normal 44-[address] [facility] Comment on above: Performed By: #### 1 [id number], [id number], [id number], 2947907519, 78677524, 9217885 #### [facility] (DEFAULT) [address] [place] [address] CBC w/ Auto Diffon Erythrocyte distribution width (RBC) [Ratio] 13.2 % Normal 11.5-15.[address] [facility] Comment on above: Performed By: #### 1 [id number], [id number], 9029493551, 4234383222, 64357456, 7331293 #### [facility] (DEFAULT) [address] [place] [address] Hematocrit (Bld) [Volume fraction] 38.4 % Normal 33.7-40.[address] [facility] Comment on above: Performed By: #### 1 3818218, 6682796764, 6002520558, 1074738885, 59620351, 6911152 #### [facility] (DEFAULT) [address] [place] [address] Hemoglobin (Bld) [Mass/Vol] 12.4 g/dL Normal 11.3-15.[address] [facility] Comment on above: Performed By: #### 1 6567913, 7259161148, 9989205306, 7147787316, 29569772, 3287994 #### [facility] (DEFAULT) [address] [place] [address] 73919 Instr WBC 7.1 x10 Invalid Interpretation Code [facility] Comment on above: Performed By: #### 1 3711295, 6306541844, 0275722340, 3914509809, 21886110, 7545006 #### [facility] (DEFAULT) [address] [place] [address] 87753 Man Diff? Auto Normal [facility] Comment on above: Performed By: #### 1 7760207, 9065088630, 3961634654, 0588276934, 17492081, 9325479 #### [facility] (DEFAULT) [address] [place] [address] 64636 MCH (RBC) [Entitic mass] 30 pg Normal 24-[address] [facility] Comment on above: Performed By: #### 1 1589952, 2478790800, 2710867888, 2428357316, 11635554, 6939131 #### [facility] (DEFAULT) [address] [place] [address] 27813 MCHC (RBC) [Mass/Vol] 32 g/dL Normal 26-37 [facility] Comment on above: Performed By: #### 1 6360767, 3133224972, 4055737192, 4870460813, 96652375, 7965575 #### [facility] (DEFAULT) [address] [place] [address] 09168 MCV (RBC) [Entitic vol] 94 fL Normal 81-100 [facility] Comment on above: Performed By: #### 1 2945054, 9934337245, 4703347512, 5553923540, 33636376, 0134215 #### [facility] (DEFAULT) [address] [place] [address] 20215 Platelet 265 x10 Normal 138-[address] [facility] Comment on above: Performed By: #### 1 2431118, 4365323799, 5125088844, 2577681216, 75064380, 0195490 #### [facility] (DEFAULT) [address] [place] [address] 66167 Platelet mean volume (Bld) [Entitic vol] 10.3 fL High 6.3-10.[address] [facility] Comment on above: Performed By: #### 1 1588349, 6994828062, 6412481489, 2899032785, 59336568, 6455425 #### [facility] (DEFAULT) [address] [place] [address] RBC 4.10 x10 Normal 3.70-5.[address] [facility] Comment on above: Performed By: #### 1 4727362, 5136664253, 5037647871, 4868542033, 91919186, 6040831 #### [facility] (DEFAULT) [address] [place] [address] WBC 7.1 x10 Normal 3.5-10.[address] [facility] Comment on above: Performed By: #### 1 7880945, 8593189054, 8486602086, 4852213049, 99945476, 4048024 #### [facility] (DEFAULT) [address] [place] [address] Standardon 03-30-2021 eGFR Non AA >60 Invalid Interpretation Code [facility] Comment on above: Performed By: #### 1 5199846, 0320388373, 0560922659, 2394984150, 00211583, 2322573 #### [facility] (DEFAULT) [address] [place] [address] eGFR AA >60 Invalid Interpretation Code [facility] Comment on above: Result Comment: Clinical Support Manager roddy Kidney disease could be indicated at eGFRs of less than 60 ml/min/1.73m2. Kidney Failure is indicated at less than 15 ml/min/1.73m2 Performed By: #### 1 3884824, 2272602095, 6971326694, 8075478283, 75786545, 1919246 #### [facility] (DEFAULT) [address] [place] [address] Albumin [Mass/Vol] 3.6 g/dL Normal 3.5-5.0 [facility] Comment on above: Performed By: #### 1 6687360, 4167530947, 5157360669, 1636833815, 53557036, 0468635 #### [facility] (DEFAULT) [address] [place] [address] Albumin/Globulin [Mass ratio] 1.1 {ratio} Low 1.4-2.[address] [facility] Comment on above: Performed By: #### 1 0555081, 2508418634, 5491675736, 1673346154, 17891329, 7409290 #### [facility] (DEFAULT) [address] [place] [address] Alk Phos 61 IU/L Normal 32-[address] [facility] Comment on above: Performed By: #### 1 4516052, 6939109767, 4796237879, 0554402217, 63145255, 2962329 #### [facility] (DEFAULT) [address] [place] [address] ALT [Catalytic activity/Vol] 14.0 U/L Normal 14.0-54.[address] [facility] Comment on above: Performed By: #### 1 9559584, 0962949969, 7480455399, 6885885612, 90343982, 6654084 #### [facility] (DEFAULT) [address] [place] [address] Anion gap [Moles/Vol] 9.0 mmol/L Normal 5.0-19.0 [facility] Comment on above: Performed By: #### 1 1218293, 7766704245, 3824537906, 9424703587, 01975457, 3148080 #### [facility] (DEFAULT) [address] [place] [address] 41659 AST [Catalytic activity/Vol] 21 U/L Normal 15-[address] [facility] Comment on above: Performed By: #### 1 2751014, 8587745954, 7771529448, 4781153454, 35841691, 1890563 #### [facility] (DEFAULT) [address] [place] [address] Bili Total 0.9 mg/dL Normal 0.3-1.[address] [facility] Comment on above: Performed By: #### 1 6721896, 8951149159, 6833567228, 5584785810, 61919988, 9992170 #### [facility] (DEFAULT) [address] [place] [address] 78639 Calcium [Mass/Vol] 8.6 mg/dL Low 8.9-10.3 [facility] Comment on above: Performed By: #### 1 9191199, 5579212431, 9911349743, 5870769574, 41923787, 3803235 #### [facility] (DEFAULT) [address] [place] [address] 20502 Chloride [Moles/Vol] 103 mmol/L Normal 101-111 [facility] Comment on above: Performed By: #### 1 9480067, 3500408474, 8828804699, 4422084774, 33453639, 1840993 #### [facility] (DEFAULT) [address] [place] [address] 94368 CO2 [Moles/Vol] 27 mmol/L Normal 21-[address] [facility] Comment on above: Performed By: #### 1 7807207, 5148946582, 5605145299, 4408557437, 71127572, 3063006 #### [facility] (DEFAULT) [address] [place] [address] 53794 Creatinine [Mass/Vol] 0.81 mg/dL Normal 0.60-1.30 [facility] Comment on above: Performed By: #### 1 3669393, 9994853748, 6070763136, 1084293465, 70238040, 4056152 #### [facility] (DEFAULT) [address] [place] [address] 07015 Globulin (S) [Mass/Vol] 3.4 g/dL Normal 1.5-4.3 [facility] Comment on above: Performed By: #### 1 9296515, 4784186450, 1767549336, 3841015934, 32464711, 1839919 #### [facility] (DEFAULT) [address] [place] [address] 69711 Glucose [Mass/Vol] 89.0 mg/dL Normal 74.0-118.0 [facility] Comment on above: Performed By: #### 1 0741865, 6834951859, 3692177872, 3794631536, 71448482, 1017858 #### [facility] (DEFAULT) [address] [place] [address] 90452 Osmolality 269 mOsm/L Invalid Interpretation Code [facility] Comment on above: Performed By: #### 1 5868373, 0311342189, 1758773906, 1975652346, 45162017, 5712675 #### [facility] (DEFAULT) [address] [place] [address] 10150 Potassium [Moles/Vol] 4.0 mmol/L Normal 3.6-5.1 [facility] Comment on above: Performed By: #### 1 6128869, 9756022417, 1678994088, 8703939129, 07887788, 7316115 #### [facility] (DEFAULT) [address] [place] [address] 87277 Protein [Mass/Vol] 7.0 g/dL Normal 6.5-8.1 [facility] Comment on above: Performed By: #### 1 9826611, 7203715035, 2946058351, 9284246155, 03749286, 4101732 #### [facility] (DEFAULT) [address] [place] [address] 95387 Sodium [Moles/Vol] 135.0 mmol/L Low 136.0-144 . [address] [facility] Comment on above: Performed By: #### 1 8553032, 4415272248, 0093265539, 0285698213, 61167755, 4598821 #### [facility] (DEFAULT) [address] [place] [address] 22144 Urea nitrogen [Mass/Vol] 12 mg/dL Normal 8-[address] [facility] Comment on above: Performed By: #### 1 5495236, 8118933492, 6930104394, 1649192570, 50766354, 2924387 #### [facility] (DEFAULT) [address] [place] [address] 47075 Urea nitrogen/Creatinine [Mass ratio] 15.0 mg/mg Normal 4.6-16.[address] [facility] Comment on above: Performed By: #### 1 6287614, 5840083709, 1182741076, 6737328911, 61071180, 3084201 #### [facility] (DEFAULT) [address] [place] [address] HgbA1c Standardon 03-30-2021 .Hb 14.4 Invalid Interpretation Code [facility] Comment on above: Performed By: #### 1 3174128, 6187554944, 4709969851, 0278734332, 57304381, 4752701 #### [facility] (DEFAULT) [address] [place] [address] .Hgb A1c 0.48 g/dL Invalid Interpretation Code [facility] Comment on above: Performed By: #### 1 2744881, 3373169339, 6141948968, 7969685069, 78495902, 8980251 #### [facility] (DEFAULT) [address] [place] [address] Glucose [Mass/Vol] 103 mg/dL Invalid Interpretation Code [facility] Comment on above: Performed By: #### 1 9321591, 6272902131, 5205642115, 1674709708, 47187094, 9109322 #### [facility] (DEFAULT) [address] [place] [address] HbA1c (Bld) [Mass fraction] 5.2 % Normal 4.6-6.[address] [facility] Comment on above: Performed By: #### 1 9216972, 4818710622, 9690691392, 9938555228, 73163500, 6606324 #### [facility] (DEFAULT) [address] [place] [address] Lipid Panel Standardon 03-30 Cholesterol [Mass/Vol] 171.0 mg/dL Normal 66.0-200.0 [facility] Comment on above: Result Comment: Rosalind rable - Less than 200 mg/dL Borderline high risk - 200-239 mg/dL High risk - 240 mg/dL and over. Performed By: #### 1 8460004, 6816405892, 2221993896, 3441180446, 51377980, 9985231 #### [facility] (DEFAULT) [address] [place] [address] 01072 Cholesterol in HDL [Mass/Vol] 64 mg/dL Normal 40-[address] [facility] Comment on above: Result Comment: High risk - <40 mg/dL. Performed By: #### 1 6025182, 0757986931, 8720046575, 7004270414, 11250682, 2183100 #### [facility] (DEFAULT) [address] [place] [address] 38629 Cholesterol in LDL [Mass/Vol] 93 mg/dL Normal 1-[address] [facility] Comment on above: Result Comment: Opti mal - Less than 100 mg/dL Borderline high risk - 130-159 mg/dL High risk - 160-189 mg/dL. Performed By: #### 1 6571161, 5670667693, 9529392710, 1152726305, 40121145, 0290934 #### [facility] (DEFAULT) [address] [place] [address] 21367 Cholesterol.total/Shelley sterol in HDL [Mass ratio] 2.7 {ratio} Normal 0.0-4.[address] [facility] Comment on above: Performed By: #### 1 1756763, 5677926007, 5777886851, 6349568108, 13689622, 4078968 #### [facility] (DEFAULT) [address] [place] [address] 54527 Triglyceride [Mass/Vol] 73.0 mg/dL Normal 0.0-150.0 [facility] Comment on above: Performed By: #### 1 9416864, 3577430024, 7987462354, 8853727751, 34955488, 0515865 #### [facility] (DEFAULT) [address] [place] [address] 56614 VLDL. 15 mg/dL Normal 5-[address] [facility] Comment on above: Performed By: #### 1 9242910, 5394108759, 4375774638, 7385843905, 40676691, 5855296 #### [facility] (DEFAULT) [address] [place] [address] Nicotine and Metabolite, Harlan nt LCon 04-20-2020 Cotinine LC <1.0 Invalid Interpretation Code [facility] Comment on above: Result Comment: This test was developed and its performance characteristics determined by [facility]. It has not been cleared or approved by the Food and Drug Administration. Cotinine levels greater than 20.0 are consistent with the use of tobacco or tobacco cessation products. Performed At: [address] [id number] Speedy Rodriguez MD Ph:[phone] Performed By: #### 1 1506767, 2334162264, 6207831688, 3027514248, 76751235, 3141937 #### [facility] (DEFAULT) [address] [place] [address] Nicotine LC <1.0 Invalid Interpretation [facility] Comment on above: Result Comment: This test was developed and its performance characteristics determined by [facility]. It has not been cleared or approved by the Food and Drug Administration. Nicotine levels greater than 2.0 are consistent with the use of tobacco or tobacco cessation products. Performed By: #### 1 9959945, 7686896808, 1407307529, 2631345647, 60056778, 2925119 #### [facility] (DEFAULT) [address] [place] [address] .Auto Diff 1on 04-10-2020 Auto Lanier % 8 % Normal 1-[address] [facility] Comment on above: Performed By: #### 7 958645, 60436311, 8715724084, 1664011536, 6162969427, 72547303 #### [facility] (DEFAULT) [address] [place] [address] Baso Abs# 0.0 x10 Normal 0.0-0.[address] [facility] Comment on above: Performed By: #### 7 274782, 69250116, 2671454064, 6372121238, 6494369376, 76378956 #### [facility] (DEFAULT) [address] [place] [address] Basophils/100 WBC (Bld) 0.6 % Normal 0.2-2.0 [facility] Comment on above: Performed By: #### 7 167679, 94025426, 6953074993, 4837065812, 9180571425, 03482872 #### [facility] (DEFAULT) [address] [place] [address] 57394 Eos Abs# 0.7 x10 High 0.0-0.[address] [facility] Comment on above: Performed By: #### 7 727926, 39226747, 0808621232, 7223208050, 3635020653, 26948255 #### [facility] (DEFAULT) [address] [place] [address] 73406 Eosinophils/100 WBC (Bld) 13.1 % High 0.9-4.[address] [facility] Comment on above: Performed By: #### 7 169417, 08421105, 8669149336, 3146887365, 3957596633, 39207559 #### [facility] (DEFAULT) [address] [place] [address] 90325 Lymph Abs# 1.8 x10 Normal 1.3-2.[address] [facility] Comment on above: Performed By: #### 7 251977, 46429237, 3784186525, 3062787584, 4637236867, 93410550 #### [facility] (DEFAULT) [address] [place] [address] 43813 Lymphocytes/100 WBC (Bld) 33 % Normal 14-[address] [facility] Comment on above: Performed By: #### 7 039208, 12423835, 5109079991, 5402649474, 6671954011, 67788286 #### [facility] (DEFAULT) [address] [place] [address] 87160 Lanier Abs# 0.4 x10 Normal 0.0-0.[address] [facility] Comment on above: Performed By: #### 7 851313, 12924885, 4693817710, 1833588519, 1293134444, 15376467 #### [facility] (DEFAULT) [address] [place] [address] Neut Abs# 2.4 x10 Normal 1.5-9.[address] [facility] Comment on above: Performed By: #### 7 879968, 35292478, 8285471924, 6499607130, 4868918350, 51986643 #### [facility] (DEFAULT) [address] [place] [address] Neutrophils/100 WBC (Bld) 45 % Normal 44-[address] [facility] Comment on above: Performed By: #### 7 224773, 69241701, 0761797329, 7006628271, 4690042221, 59141871 #### [facility] (DEFAULT) [address] [place] [address] CBC w/ Auto Diffon 0 Erythrocyte distribution width (RBC) [Ratio] 13.4 % Normal 11.5-15.[address] [facility] Comment on above: Performed By: #### 7 716162, 78258423, 2314128251, 8955170377, 8830692731, 98699876 #### [facility] (DEFAULT) [address] [place] [address] Hematocrit (Bld) [Volume fraction] 38.4 % Normal 33.7-40.[address] [facility] Comment on above: Performed By: #### 7 411614, 27422872, 0567288867, 2571925173, 8595769812, 66555905 #### [facility] (DEFAULT) [address] [place] [address] 00638 Hemoglobin (Bld) [Mass/Vol] 12.6 g/dL Normal 11.3-15.[address] [facility] Comment on above: Performed By: #### 7 310123, 30973846, 2196086399, 8103401073, 9243512323, 90393515 #### [facility] (DEFAULT) [address] [place], [place] [address] Instr WBC 5.3 x10 Invalid Interpretation Code [facility] Comment on above: Performed By: #### 7 129685, 20658307, 0521933425, 8299602780, 1077103418, 55151974 #### [facility] (DEFAULT) [address] [place] [address] 90245 Man Diff? Auto Normal [facility] Comment on above: Performed By: #### 7 559750, 00534174, 0722073157, 5942367848, 3052036079, 29273637 #### [facility] (DEFAULT) [address] [place] [address] 14069 MCH (RBC) [Entitic mass] 29 pg Normal 24-[address] [facility] Comment on above: Performed By: #### 7 756674, 59581021, 2939171896, 1338440849, 1220374739, 49515092 #### [facility] (DEFAULT) [address] [place] [address] MCHC (RBC) [Mass/Vol] 33 g/dL Normal 26-37 [facility] Comment on above: Performed By: #### 7 970390, 64617959, 7596383704, 3641544925, 9428879873, 44028275 #### [facility] (DEFAULT) [address] [place] [address] MCV (RBC) [Entitic vol] 89 fL Normal 81-100 [facility] Comment on above: Performed By: #### 7 221139, 64054582, 3599887796, 7796377294, 4740616136, 41550846 #### [facility] (DEFAULT) [address] [place] [address] Platelet 270 x10 Normal 138-[address] [facility] Comment on above: Performed By: #### 7 437415, 73543118, 1573955158, 7447624140, 3378277642, 26985896 #### [facility] (DEFAULT) [address] [place] [address] 44686 Platelet mean volume (Bld) [Entitic vol] 10.1 fL Normal 6.3-10.[address] [facility] Comment on above: Performed By: #### 7 747471, 39100577, 8334173457, 8072019410, 3589139070, 29865006 #### [facility] (DEFAULT) [address] [place] [address] RBC 4.32 x10 Normal 3.70-5.[address] [facility] Comment on above: Performed By: #### 7 175522, 46220183, 2369053181, 8914665337, 8727736875, 90175339 #### [facility] (DEFAULT) [address] [place] [address] 61983 WBC 5.3 x10 Normal 3.5-10.[address] [facility] Comment on above: Performed By: #### 7 121702, 74554521, 5717908118, 8821061075, 8810217138, 75341555 #### [facility] (DEFAULT) [address] [place] [address] Standardon 04-10-2020 eGFR Non AA >60 Invalid Interpretation Code [facility] Comment on above: Performed By: #### 7 244082, 30427526, 2086879815, 7437634454, 8586245763, 99512089 #### [facility] (DEFAULT) [address] [place] [address] eGFR AA >60 Invalid Interpretation Code [facility] Comment on above: Result Comment: Clinical Support Manager roddy Kidney disease could be indicated at eGFRs of less than 60 ml/min/1.73m2. Kidney Failure is indicated at less than 15 ml/min/1.73m2 Performed By: #### 7 376738, 86758804, 1544383508, 0265401470, 7408357309, 18879373 #### [facility] (DEFAULT) [address] [place] [address] 10377 Albumin [Mass/Vol] 3.8 g/dL Normal 3.5-5.0 [facility] Comment on above: Performed By: #### 7 487843, 88344846, 6170823575, 2169983244, 1916074430, 31101255 #### [facility] (DEFAULT) [address] [place] [address] 69715 Albumin/Globulin [Mass ratio] 1.1 {ratio} Low 1.4-2.[address] [facility] Comment on above: Performed By: #### 7 966169, 47741094, 4651743865, 1261227774, 9093712969, 61521663 #### [facility] (DEFAULT) [address] [place] [address] 09648 Alk Phos 40 IU/L Normal 32-[address] [facility] Comment on above: Performed By: #### 7 565983, 44461571, 1822588075, 9266813737, 1289001802, 04086879 #### [facility] (DEFAULT) [address] [place] [address] 94992 ALT [Catalytic activity/Vol] 13.0 U/L Low 14.0-54.[address] [facility] Comment on above: Performed By: #### 7 664616, 69137041, 2384449136, 6060805680, 6207686439, 92865590 #### [facility] (DEFAULT) [address] [place] [address] 51314 Anion gap [Moles/Vol] 11.0 mmol/L Normal 5.0-19.0 [facility] Comment on above: Performed By: #### 7 638868, 68317064, 8196930105, 9774740805, 1648381358, 23306863 #### [facility] (DEFAULT) [address] [place] [address] 73187 AST [Catalytic activity/Vol] 19 U/L Normal 15-[address] [facility] Comment on above: Performed By: #### 7 898093, 59301374, 7323103472, 5949087339, 3782231925, 50985925 #### [facility] (DEFAULT) [address] [place] [address] 18038 Bili Total 1.1 mg/dL Normal 0.3-1.[address] [facility] Comment on above: Performed By: #### 7 282230, 31945261, 6781010795, 7063431388, 1012909444, 45245589 #### [facility] (DEFAULT) [address] [place] [address] 32317 Calcium [Mass/Vol] 9.1 mg/dL Normal 8.9-10.3 [facility] Comment on above: Performed By: #### 7 [id number], [id number], [id number], [id number], [id number], [id number] #### [facility] (DEFAULT) [address] [place] [address] 63800 Chloride [Moles/Vol] 107 mmol/L Normal 101-111 [facility] Comment on above: Performed By: #### 7 [id number], [id number], [id number], [id number], [id number], [id number] #### [facility] (DEFAULT) [address] [place] [address] 36408 CO2 [Moles/Vol] 23 mmol/L Normal 21-[address] [facility] Comment on above: Performed By: #### 7 [id number], [id number], [id number], [id number], [id number], [id number] #### [facility] (DEFAULT) [address] [place] [address] 14005 Creatinine [Mass/Vol] 0.75 mg/dL Normal 0.60-1.30 [facility] Comment on above: Performed By: #### 7 [id number], [id number], [id number], [id number], [id number], [id number] #### [facility] (DEFAULT) [address] [place] [address] 24798 Globulin (S) [Mass/Vol] 3.4 g/dL Normal 1.5-4.3 [facility] Comment on above: Performed By: #### 7 [id number], [id number], [id number], [id number], [id number], [id number] #### [facility] (DEFAULT) [address] [place] [address] 21959 Glucose [Mass/Vol] 98.0 mg/dL Normal 74.0-118.0 [facility] Comment on above: Performed By: #### 7 591528, [id number], [id number], [id number], [id number], [id number] #### [facility] (DEFAULT) [address] [place] [address] 62798 Osmolality 276 mOsm/L Invalid Interpretation Code [facility] Comment on above: Performed By: #### 7 [id number], [id number], [id number], [id number], [id number], [id number] #### [facility] (DEFAULT) [address] [place] [address] 83030 Potassium [Moles/Vol] 4.0 mmol/L Normal 3.6-5.1 [facility] Comment on above: Performed By: #### 7 [id number], [id number], [id number], [id number], [id number], [id number] #### [facility] (DEFAULT) [address] [place] [address] 44893 Protein [Mass/Vol] 7.2 g/dL Normal 6.5-8.1 [facility] Comment on above: Performed By: #### 7 [id number], [id number], [id number], [id number], [id number], [id number] #### [facility] (DEFAULT) [address] [place] [address] 86298 Sodium [Moles/Vol] 137.0 mmol/L Normal 136.0-144 . [address] [facility] Comment on above: Performed By: #### 7 [id number], [id number], [id number], [id number], [id number], [id number] #### [facility] (DEFAULT) [address] [place] [address] 06668 Urea nitrogen [Mass/Vol] 20 mg/dL Normal 8-[address] [facility] Comment on above: Performed By: #### 7 [id number], [id number], [id number], [id number], [id number], [id number] #### [facility] (DEFAULT) [address] [place] [address] 42710 Urea nitrogen/Creatinine [Mass ratio] 27.0 mg/mg High 4.6-16.[address] [facility] Comment on above: Performed By: #### 7 [id number], [id number], [id number], [id number], [id number], [id number] #### [facility] (DEFAULT) [address] [place] [address] 88491 HgbA1c Standardon 04-10-2020 .Hb 14.7 Invalid Interpretation Code [facility] Comment on above: Performed By: #### 1 [id number], [id number], [id number], [id number], [id number], [id number] #### [facility] (DEFAULT) [address] [place] [address] .Hgb A1c 0.51 g/dL Invalid Interpretation Code [facility] Comment on above: Performed By: #### 1 [id number], [id number], [id number], [id number], [id number], [id number] #### [facility] (DEFAULT) [address] [place] [address] Glucose [Mass/Vol] 106 mg/dL Invalid Interpretation Code [facility] Comment on above: Performed By: #### 1 [id number], [id number], [id number], [id number], [id number], [id number] #### [facility] (DEFAULT) [address] [place] [address] HbA1c (Bld) [Mass fraction] 5.3 % Normal 4.6-6.[address] [facility] Comment on above: Performed By: #### 1 [id number], [id number], [id number], [id number], [id number], [id number] #### [facility] (DEFAULT) [address] [place] [address] Lipid Panel Standardon 04-10 Cholesterol [Mass/Vol] 162.0 mg/dL Normal 66.0-200.0 [facility] Comment on above: Result Comment: Rosalind rable - Less than 200 mg/dL Borderline high risk - 200-239 mg/dL High risk - 240 mg/dL and over. Performed By: #### 7 [id number], [id number], [id number], [id number], [id number], [id number] #### [facility] (DEFAULT) [address] [place] [address] Cholesterol in HDL [Mass/Vol] 64 mg/dL Normal 40-[address] [facility] Comment on above: Result Comment: High risk - <40 mg/dL. Performed By: #### 7 [id number], [id number], [id number], [id number], [id number], [id number] #### [facility] (DEFAULT) [address] [place] [address] 42194 Cholesterol in LDL [Mass/Vol] 90 mg/dL Normal 1-[address] [facility] Comment on above: Result Comment: Opti mal - Less than 100 mg/dL Borderline high risk - 130-159 mg/dL High risk - 160-189 mg/dL. Performed By: #### 7 [id number], [id number], [id number], [id number], [id number], [id number] #### [facility] (DEFAULT) [address] [place] [address] 82258 Cholesterol.total/Shelley sterol in HDL [Mass ratio] 2.5 {ratio} Normal 0.0-4.[address] [facility] Comment on above: Performed By: #### 7 [id number], [id number], [id number], [id number], [id number], [id number] #### [facility] (DEFAULT) [address] [place] [address] 17806 Triglyceride [Mass/Vol] 38.0 mg/dL Normal 0.0-150.0 [facility] Comment on above: Performed By: #### 7 [id number], [id number], [id number], [id number], [id number], [id number] #### [facility] (DEFAULT) [address] [place] [address] 00006 VLDL. 8 mg/dL Normal 5-[address] [facility] Comment on above: Performed By: #### 7 [id number], [id number], [id number], [id number], [id number], [id number] #### [facility] (DEFAULT) [address] [place] [address] 50933 Vital Signs Date Time Vital Sign Value Performing Clinician Facility 10-28-2024 14:48-0400 Body height 162.56 cm Anup Pearl MD Work Phone: [facility] 10-28-2024 14:48-0400 Body mass index (BMI) [Ratio] 22.5 kg/m2 Anup Pearl MD Work Phone: [facility] 10-28-2024 14:48-0400 Body weight 59.53 kg Anup Pearl MD Work Phone: [facility] 10-28-2024 14:48-0400 Diastolic blood pressure 62 mm[Hg] Anup Pearl MD Work Phone: [facility] 10-28-2024 14:48-0400 Heart rate 69 /min Anup Pearl MD Work Phone: [facility] 10-28-2024 14:48-0400 SaO2% (BldA) [Mass fraction] 97 % Anup Pearl MD Work Phone: [facility] 10-28-2024 14:48-0400 Systolic blood pressure 108 mm[Hg] Anup Pearl MD Work Phone: [facility] 07-10-2024 14:58-0500 Body mass index (BMI) [Ratio] 22.34 kg/m2 Triston Marcus DO Work Phone: [facility] 07-10-2024 14:58-0500 Body weight 59.02 kg Triston Marcus DO Work Phone: [facility] 07-10-2024 14:58-0500 Diastolic blood pressure 74 mm[Hg] Triston Marcus DO Work Phone: [facility] 07-10-2024 14:58-0500 Systolic blood pressure 116 mm[Hg] Triston Marcus DO Work Phone: [facility] 05-06-2024 14:43-0500 Body height 162.56 cm Tess Leahy MD Work Phone: [facility] 05-06-2024 14:43-0500 Body mass index (BMI) [Ratio] 22.5 kg/m2 Tess Leahy MD Work Phone: [facility] 05-06-2024 14:43-0500 Body weight 59.59 kg Tess Leahy MD Work Phone: [facility] 05-06-2024 14:43-0500 Diastolic blood pressure 79 mm[Hg] Tess Leahy MD Work Phone: [facility] 05-06-2024 14:43-0500 Heart rate 55 /min Tess Leahy MD Work Phone: [facility] 05-06-2024 14:43-0500 Systolic blood pressure 121 mm[Hg] Tess Leahy MD Work Phone: [facility] 11-20-2023 15:46-0400 Body height 162.56 cm MD Alis Park-Aniket Work Phone: [facility] 11-20-2023 15:46-0400 Body mass index (BMI) [Ratio] 22.7 kg/m2 MD Alis Beth Work Phone: [facility] 11-20-2023 15:46-0400 Body weight 60.04 kg MD Alis Beth Work Phone: [facility] 11-20-2023 15:46-0400 Diastolic blood pressure 72 mm[Hg] MD Alis Beth Work Phone: [facility] 11-20-2023 15:46-0400 Heart rate 54 /min MD Alis Beth Work Phone: [facility] 11-20-2023 15:46-0400 Systolic blood pressure 116 mm[Hg] MD Alis Beth Work Phone: [facility] 08-30-2023 14:03-0400 Blood Pressure Location Anup PEARL [facility] 08-30-2023 14:03-0400 Diastolic blood pressure 78 mm[Hg] Anup PEARL [facility] 08-30-2023 14:03-0400 Heart rate 72 /min Anup PEARL [facility] [place] 08-30-2023 14:03-0400 Respiratory rate 16 /min Anup PEARL [facility] 08-30-2023 14:03-0400 Systolic blood pressure 116 mm[Hg] Anup PEARL [facility] Encounters Encounter Date Encounter Type Care Provider Facility Start: 11-20-2024 End: 11-20-2024 Clinisync Result Encounter Triston Marcus DO Work Phone: [facility] Unsolicited Start: 11-20-2024 End: 11-20-2024 Clinisync Result Encounter Triston Marcus DO Work Phone: [facility] Unsolicited Start: 10-28-2024 End: 10-28-2024 ambulatory Anup Pearl MD Work Phone: [facility] Work Phone: Start: 10-28-2024 End: 10-28-2024 Patient encounter procedure Anup Pearl MD Work Phone: [facility] Work Phone: Start: 10-23-2024 Non-patient / Non-visit Ni Pearl MD Work Phone: [facility] Work Phone: Start: 10-02-2024 End: 10-02-2024 ambulatory Anup Pearl Facility:[facility] Start: 10-02-2024 End: 10-02-2024 Departed Referred Anup Pearl MD Work Phone: [facility] Start: 10-02-2024 Non-patient / Non-visit Ni Pearl MD Work Phone: [facility] Work Phone: Start: 10-02-2024 End: 10-02-2024 ambulatory Anup PEARL Facility:[id number] Start: 09-24-2024 End: 09-24-2024 ambulatory Anup PEARL Facility:[facility] Start: 07-10-2024 End: 07-10-2024 Patient encounter procedure [...] 05-06-2024 ambulatory Tess Leahy MD Work Phone: [facility] Work Phone: Start: 05-06-2024 End: 05-06-2024 Patient encounter procedure Tess Leahy MD Work Phone: [facility] Work Phone: Start: 02-14-2024 End: 02-14-2024 ambulatory MD Tess Leahy Work Phone: [facility] Work Phone: Start: 02-14-2024 End: 02-14-2024 Departed Referred MD Tess Leahy Work Phone: [facility] Start: 02-14-2024 Non-patient / Non-visit Tess Leahy MD Work Phone: [facility] Work Phone: Start: 02-14-2024 End: 02-14-2024 ambulatory Anup PEARL Facility:[id number] Start: 01-30-2024 End: 01-30-2024 ambulatory GUILHERME ROMO Not Available Start: 11-20-2023 Patient encounter status MD Jeremy Beth Work Phone: [facility] Start: 11-20-2023 End: 11-20-2023 ambulatory MD Alis Beth Work Phone: [facility] Work Phone: Start: 11-20-2023 End: 11-20-2023 Encounter for general adult medical examination without abnormal findings MD Alis Beth Work Phone: [facility] Start: 11-20-2023 End: 11-20-2023 Patient encounter procedure MD Alis Beth Work Phone: [facility] Work Phone: Start: 11-14-2023 Non-patient / Non-visit MD Alis Beth Work Phone: [facility] Work Phone: Start: 11-07-2023 Non-patient / Non-visit MD Alis Beth Work Phone: [facility] Work Phone: Start: 10-11-2023 End: 10-11-2023 ambulatory MD Alis Beth Work Phone: [facility] Work Phone: Start: 10-11-2023 End: 10-11-2023 Departed Referred MD Alis Beth Work Phone: [facility] Start: 10-11-2023 Non-patient / Non-visit MD Alis Alt-Aniket Work Phone: [facility] Work Phone: Start: 08-30-2023 End: 08-30-2023 Patient encounter procedure Anup Frias DAE [facility] Start: 11-11-2022 End: 11-12-[address] STEVE DAS . Facility:[facility] Start: 11-05-2022 Encounter for genera l adult medical examination without abnormal findings DR TESS LEAHY [facility] Start: 11-01-2022 End: 11-02-[address] TESS LEAHY Facility: Start: 11-01-2022 End: 11-02-2022 Encounter for general adult medical examination without abnormal findings DR TESS LEAHY Facility:[facility] Start: 06-23-2022 End: 06-23-[address] STEVE DAS . Facility: Procedures Date Procedure Procedure Detail Performing Clinician Start: 11-20-2024 MM TOMOSYNTHESIS SCREENING BI Triston Fazi o DO Work Phone: Start: 11-20-2024 Mammography Triston Marcus DO Work Phone: Start: 07-10-2024 IGP,APTIMA HPV,AGE GDLN Triston Marucs DO Work Phone: Start: 07-10-2024 Microscopic observation [Identifier] in Cervix by Cyto stain Triston Marcus DO Work Phone: Start: 11-23-2023 Mammography Triston Marcus DO Work Phone: Start: 06-26-2023 Microscopic observation [Identifier] in Cervix by Cyto stain Triston Marcus DO Work Phone: Start: 11-02-2016 Colonoscopy Triston Marcus DO Work Phone: Start: 11-02-2016 Colonoscopy Anup PEARL Start: 11-02-2016 Esophagogastroduodenoscopy Anup PEARL Start: 01-19-2011 Colonoscopy Anup PEARL Start: 01-19-2011 Esophagogastroduodenoscopy Anup PEARL section Anup Marquez Cholecystectomy Anup PEARL Excision of ganglion of foot Anup PEARL Plan of Treatment Date Care Activity Detail Author Start: 07-10-2029 Screening for malignant neoplasm of cervix [facility] Start: 11-02-2026 Screening for malignant neoplasm of colon [facility] Start: 06-26-2026 Screening for malignant neoplasm of cervix [facility] Start: 07-14-2025 End: 07-14-2025 Patient encounter procedure 07/14/2025 2:40 PM EST Office Visit [facility] [address] [place] [phone] Triston Velazquez, DO [address] [place] [address] [facility] Start: 11-22-2024 Screening for malignant neoplasm of breast Mammogram [facility] Start: 07-10-2024 End: 07-10-2024 Patient encounter procedure 07/10/2024 2:40 PM EST Office Visit [facility] [address] [place] [phone] Triston Velazquez, DO [address] [place], [facility] Arrived [facility] Comment on above: Arrived Start: 07-10-2024 End: 09-07-2025 MG Breast - bilateral Screening Bilateral screening mammogram Imaging Routine Breast cancer screening by mammogram Expected: 07/10/2024, Expires: 09/07/2025 [facility] Work Phone: Comment on above: Expected: 07/10/2024 , Expires: 09/07/2025 Start: 02-18-2024 Influenza vaccination Influenza Vacc ine (#1) [facility] Start: 10-28-2001 Screening for malignant neoplasm of cervix HPV/Cotest [facility] Start: 1970 Screening for malignant neoplasm of colon [facility] MR Brain WO contrast Fire[facility] THIN PREP TIS PAP AN D HR HPV DNA THIN PREP TIS PAP AND HR HPV DNA Pathology and Cytology Routine Well woman exam with routine gynecological exam Ordered: 07/10/2024 [facility] Comment on above: Ordered: 07/10/2024 Immunizations Immunization Date Immunization Notes Care Provider Fa cility 04-19-2024 influenza virus vaccine, unspecified formulation Triston Velazquez DO Work Phone: [facility] 03-19-2023 influenza virus vaccine, unspecified formulation Anup PEARL [facility] 05-05-2021 SARS-CoV-2 (COVID-19 ) Ad26 vaccine, recombinant Anup PEARL [facility] Comment on above: Result Comment: 2023: [id number] Payers Date Payer Category Payer Self-pay 2022 [facility] [employer] [id number] 2022 Unknown [id number] 1970 Unknown [id number] 1971 Unknown [id number] 1971 Unknown [id number] 1971 Unknown [id number] 1971 Unknown [id number] 1971 Unknown [id number] 1971 Unknown [id number] 1971 Unknown [id number] Unknown [facility] Net[employer] Access [id number] Unknown [id number] Unknown [id number] Unknown [id number] Social History Date Type Detail Facility Start: 08-30-2023 End: 11-20-2023 Tobacco smoking status Ex-smoker (finding) [facility] Tobacco smoking status Never [facility] Start: 05-31-2023 End: 07-10-2024 Sex Assigned At Female [facility] Start: 1970 Sex Assigned At Female F [facility] Start: 05-06-2024 End: 10-28-2024 Sex Female (finding) [facility] Start: 05-31-2023 Tobacco smoking stat us LAIS Never smoked tobacco [facility] Start: 06-26-2023 End: 07-10-2024 Alcoholic beverage intake Current drinker of alcohol (finding) [facility] Start: 05-31-2023 End: 07-10-2024 History of Social function [facility] Start: 05-31-2023 Alcohol Comment Occasional alcohol u se [facility] Start: 1970 Sex assigned at Not on file [facility] Functional Status Date Assessment Result Facility [...] Abuse, 08/30/2023 Tobac (more content not included)... [facility] Comment on above: Result Comment: Elec tronically Signed By: DAE ROSALES, Anup Frias\bessie\Date and Time Signed: 09/24/24 13:34 EDT History [...] nursing note reviewed. Exam conducted with a mix maker present. Vitals: Estimated body mass index is [...] Triston Velazquez DO documented in this encounter [facility] Healthcare Evaluation note 02-14-2013 Note Date & Type Note Facility 02-14-2013 Evaluation note Diagnosis Onset Date Hypothyroidism, unspecified February 14, 2013 acute Wellness examination acute [facility] Work Phone: Evaluation + Plan note Note Date & Type Note Facility Evaluation + Plan note No data available for this section [facility] Evaluation note Note Date & Type Note Facility Evaluation note No assessment information availa [facility] Work Phone: Evaluation note Note Date & Type Note Facility Evaluation note Diagnosis Onset Date Resolution Concern about memory acute Nove mber 2023 2:28pm Headache acute May 06, 2024 2:28pm [facility] Work Phone: Evaluation note Note Date & Type Note Facility Evaluation note Diagnosis Well woman exam with routine gynecological exam Routine gynecological examination Breast cancer screening by mammogram Hot flashes documented in this encounter [facility] Hospital Discharge instructions Note Date & Type Note Facility Hospital Discharge instructions No data available for this section [facility] Progress note Note Date & Type Note Facility Progress note No data available for this section [facility] Summary Purpose Family History No Family History [...] section and content) DATE CREATED AUTHOR 04/04/2021 [facility] DATE CREATED AUTHOR AUTHOR'S ORGANIZ ATION 11/25/2022 [facility] DATE CREATED AUTHOR AUTHOR'S ORGANIZ ATION 07/12/2024 [facility] EPIC DATE CREATED AUTHOR AUTHOR'S ORGANIZ ATION 10/09/2024 [facility] DATE CREATED AUTHOR AUTHOR'S ORGANIZ ATION 10/18/2024 [facility] Patient Care team informatio n (unrecognized [...] End: February 14, 2024 Anup Pearl MD [facility] Attending Provider Active Start: February [...] Attending Provider Active Start: November 14, 2023 Ortho Tech Relationship Specialty Start Date End Date Tess Leahy MD [address] [facility] [address] PCP - General Family Medicine 06/26/23 Ortho Tech Relationship Specialty Start Date End Date Tess Leahy MD [address] [facility] [address] PCP - General Family Medicine 06/26/23 Ortho Tech Relationship Specialty Start Date End Date Tess Leahy MD [address] [facility] [place] [address] PCP - General Family Medicine 06/26/23 Team Status: Inactive Member Role [...] October 28, 2024 End: October 28, 2024 Ortho Tech Relationship Specialty Start Date End Date Tess Leahy MD PCP - General Family Medicine 06/26/23 Goals [...] BE BASED ON THE PRIMARY CLINICAL RECORDS. [facility] [employer] [facility]. provides no warranty or guarantee of the accuracy or completeness of information in this document.
[2024-12-04 08:01] LABS: Basophils Absolute Auto 0.1 10^3/uL (0.0-0.1); Basophils Percent Auto 0.9 % (0.2-2.0); Eosinophils Absolute Auto 0.8 10^3/uL (0.0-0.7); Eosinophils Percent Auto 13.4 % (0.9-7.0); Hematocrit 39.8 % (36.0-48.0); Hemoglobin 13.7 g/dL (12.0-16.0); Immature Granulocytes Abs Auto 0.02 10^3/uL (0.00-0.03); Immature Granulocytes Pct Auto 0.3 % (0.0-0.5); Lymphocytes Absolute Auto 1.5 10^3/uL (1.2-3.8); Lymphocytes Percent Auto 25.6 % (20.5-60.0); Mean Corpuscular HGB Conc 34.4 g/dL (29.9-35.2); Mean Corpuscular Hemoglobin 32.6 pg (26.7-34.0); Mean Corpuscular Volume 94.8 fL (81.0-99.0); Mean Platelet Volume 9.4 fL (9.5-13.5); Monocytes Absolute Auto 0.4 10^3/uL (0.3-0.8); Monocytes Percent Auto 7.5 % (1.7-12.0); Neutrophils Percent Auto 52.3 % (43.0-75.0); Platelet Count 264 10^3/uL (150-450); White Blood Count 5.8 10^3/uL (4.0-11.0)
[2024-12-04 09:03] LABS: Estimated Average Glucose 103 mg/dL; Glycohemoglobin A1C 5.2 % (4.5-6.2)
[2024-12-04 09:13] LABS: Alanine Aminotransferase 24 U/L (14-59); Albumin Globulin Ratio 1.1; Albumin Level 3.5 g/dL (3.4-5.0); Alkaline Phosphatase 50 U/L (46-116); Aspartate Amino Transferase 20 U/L (15-37); BUN Creatinine Ratio 30.2; Bilirubin Total 0.8 mg/dL (0.2-1.0); Calcium 9.2 mg/dL (8.5-10.1); Carbon Dioxide 30.1 mmol/L (21.0-32.0); Chloride 103 mmol/L (98-107); Estimated GFR (African America >60 (>=60 mL/min/1.73m^2); Estimated GFR (Non-African Ame >60 (>=60 mL/min/1.73m^2); Globulin 3.1 g/dL; Glucose 98 mg/dL (74-106); Potassium 4.1 mmol/L (3.5-5.1); Sodium 140 mmol/L (136-145); Thyroid Stimulating Hormone 5.042 uIU/mL (0.358-3.740); Total Protein 6.6 g/dL (6.4-8.2)
[2024-12-04 09:23] LABS: Free T4 1.01 ng/dL (0.76-1.46)
== END 2024-12-04 07:39 | disposition home or self-care (01) ==
LOC: LAB 07:40
PROVIDERS: PCP Family Medicine; Visit Provider Family Medicine
DX: Z00.00 Encounter for general adult medical examination without abnormal findings (principal); E03.8 Other specified hypothyroidism; E06.3 Autoimmune thyroiditis
CPT/HCPCS: 36415; 80053; 83036; 84439; 84443; 85025

== ENCOUNTER 2025-01-06 13:12 | Outpatient (OUT) | payer BC, SELFPAY ==
--- OUTSIDE RECORDS SUMMARY | 2025-01-06 13:14 | XMS_ITS | Encounter Summary ---
Author Organization [facility] Address [address] [place] [address] Care Team Providers Care Roller Machine Operator Name Role Phone Tess Nunn MD Primary Care Provider [phone] Encounter Details Date Type Department Care Team (Late st Contact Info) Description 11/23/2023 Clinisync Result Encounter [facility] Unsolicited Agapito Velazquez, DO [address] [place] [address] Social History Tobacco Use Types Packs/Day Years [...] 07/14/2025 2:40 PM EST Office Visit [facility] [address] [phone] Agapito Velazquez, [address] [place] [address] documented as of this encounter Procedures Procedure Name Priority Date/Time Associated Diagnosis Comments MM TOMOSYNTHESIS SCREENING BI 11/23/2023 1:30 PM EDT documented in this encounter Results * MM TOMOSYNTHESIS SCREENING BI (11/23/2023 1:30 PM EDT) Anatomical Region Laterality Modality Other 11/23/2023 1:30 PM EDT Narrative 11/23/2023 1:31 [place] [address] Mammography Report Signed Patient: ANATOLIY MARIE MR#: [id number] : 1970 Acct:[id number] Age/Sex: 53 / F ADM Date: 11/20/23 Loc: MAMMO Attending Dr: Agapito Velazquez D.O. Ordering Physician: Agapito Velazquez D.O. Results: Date of Service: 11/20/23 Follow Up: Procedure(s): MM tomosynthesis screening BI Accession Number(s): [id number] cc: Tess Nunn M.D.; Agapito Velazquez D.O. Patient Name: ANATOLIY MARIE MR#: [id number] : 1970 Exam Date: 11/20/2023 Ordering Doctor: [...] breast cancer at age 69. LOCATION: The [facility] BREAST COMPOSITION: The breasts are extremely dense, [...] Signed By: 11/23/23 1331 DD/ 1330 TD/TT: Jewelry Sales Representative: Procedure Note Radiology, Radiologist, MD - 11/23/2023 [place] [address] Mammography Report Signed Patient: ANATOLIY MARIE LMR#: [id number] : 1970Acct:[id number] Age/Sex: 53 / FADM Date: 11/20/23 Loc: MAMMO Attending Dr: Agapito Velazquez D.O. Ordering Physician: Agapito Velazquez D.O.Results: Date of Service: 11/20/23Follow Up: Procedure(s): MM tomosynthesis screening BI Accession Number(s): [id number] cc: Tess Nunn M.D.; Agapito Velazquez D.O. Patient Name: ANATOLIY MARIE MR#: [id number] : 1970 Exam Date: 11/20/2023 Ordering Doctor: [...] withbreast cancer at age 69. LOCATION: The [facility] BREAST COMPOSITION: The breasts are extremely dense, [...] M.D. Signed By:11/23/23 1331 DD/ 1330 TD/TT: Jewelry Sales Representative: [facility] Marcus DO [facility] Final Result documented in this encounter Visit Diagnoses Not on filedocumented in this encounter Care Teams Roller Machine Operator Relationship Specialty Start Date End Date Tess Nunn MD PCP - General Family Medicine 06/26/23 documented as of this encounter
--- OUTSIDE RECORDS SUMMARY | 2025-01-06 13:14 | XMS_ITS | Encounter Summary ---
Author Organization [facility] Address [address] [place] [address] Care Team Providers Care Form Designer Name Role Phone Tess Nunn MD Primary Care Provider [phone] Encounter Details Date Type Department Care Team (Late st Contact Info) Description 11/11/2022 Clinisync Result Encounter [facility] External Department Unsolicited Triston Velazquez, DO [address] [facility] [place] [address] Social History Tobacco Use Types Packs/Day Years [...] 07/14/2025 2:40 PM EST Office Visit [facility] [address] [facility] [phone] Triston Velazquez, [address] [place] [address] documented as of this encounter Procedures Procedure [...] : DR TRISTON VELAZQUEZ . Admission #: [id number] Family : Order #: [id number] CLICK HERE TO VIEW EXAM RADIOLOGY REPORT [...] breast cancer at age 69. LOCATION: [facility] BREAST COMPOSITION: Extremely dense, which lowers the [...] : DR TRISTON VELAZQUEZ . Admission #: [id number] Family : Order #: [id number] CLICK HERE TO VIEW EXAM RADIOLOGY REPORT [...] withbreast cancer at age 69. LOCATION: [facility] BREAST COMPOSITION: Extremely dense, which lowers the [...] Nam Andrade MD on 11/11/2022 at 13:58 [facility] Final Result documented in this encounter Visit Diagnoses Not on filedocumented in this encounter Care Teams Form Designer Relationship Specialty Start Date End Date Tess Nunn MD PCP - General Family Medicine 06/26/23 documented as of this encounter
--- OUTSIDE RECORDS SUMMARY | 2025-01-06 13:14 | XMS_ITS | Clinical Summary ---
Author Organization [facility] Address [id number] [address] [place] [address] Care Team Providers Care Lead Case Manager Name Role Phone Tess Nunn MD Primary Care Provider [phone] Allergies No known active allergies Medications sucralfate [...] nal Result [facility] EXTERNAL NON-INTERFACED REF LAB [address] [facility] [place] [address] from Last 3 Months or Most Recently Relevant to Health Maintenance Insurance [employer] Care Teams Lead Case Manager Relationship Specialty Start Date End Date Tess Nunn MD [facility] [place] [address] PCP - General 07/21/17
--- OUTSIDE RECORDS SUMMARY | 2025-01-06 13:14 | XMS_ITS | Clinical Summary ---
Author Organization [facility] Address [address] [place] [address] Care Team Providers Care Saddle Stitching Machine Operator Name Role Phone Unavailable Primary Care Provider Unavailabl e Social History Tobacco Use Types Packs/Day Years Used Date Smoking Tobacco: Never Assessed [place] Safety & Environment Answer Date Rec orded [...]
--- OUTSIDE RECORDS SUMMARY | 2025-01-06 13:14 | XMS_ITS | Encounter Summary ---
Author Organization [facility] Address [address] [facility] [place] [address] Care Team Providers Care Speech Teacher Name Role Phone Tess Nunn MD Primary Care Provider [phone] Encounter Details Date Type Department Care Team (Late st Contact Info) Description 07/18/2024 Orders Only [facility] [address] [place] [phone] Megan Rooney [address] [place] [address] Social History Tobacco Use Types Packs/Day Years [...] 07/14/2025 2:40 PM EST Office Visit [facility] [address] [place] [phone] Agapito Velazquez DO [address] [place] [address] [address] [place] [place], [place] [id number] documented as of this encounter Procedures Procedure Name Priority Date/Time Associated Diagnosis Comments PAP SMEAR Routine 07/10/2024 12:00 AM EST documented in this encounter Results * Pap Smear (07/10/2024 12:00 AM EST) Swab Cervical swab / Unknown Agapito Velazquez DO LAB CYTOLOGY ORDERABLES Final Re sult EXTERNAL LAB documented in this encounter Visit Diagnoses Not on filedocumented in this encounter Care Teams Speech Teacher Relationship Specialty Start Date End Date Tess Nunn MD PCP - General Family Medicine 06/26/23 documented as of this encounter
--- OUTSIDE RECORDS SUMMARY | 2025-01-06 13:14 | XMS_ITS | Encounter Summary ---
Author Organization [facility] Address [address] [facility] [place] [address] Care Team Providers Care Special Needs Teacher Name Role Phone Tess Nunn MD Primary Care Provider Encounter Details Date Type Department Care Team (Late st Contact Info) Description 06/29/2023 Clinisync Result Encounter [facility] External Department Unsolicited Triston Velazquez, DO [address] [facility] [place] [address] Social History Tobacco Use Types Packs/Day Years [...] 07/14/2025 2:40 PM EST Office Visit [facility] OB [address] [facility] [place] [phone] Triston Velazquez, [address] [facility] [place] [address] documented as of this encounter Procedures Procedure Name Priority Date/Time Associated Diagnosis Comments XR DEXA AXIAL SKELETON 06/29/2023 3:46 PM EST documented in this encounter Results * XR DEXA AXIAL SKELETON (06/29/2023 3:46 PM EST) Anatomical Region Laterality Modality Other 06/29/2023 3:46 PM EST Narrative 06/29/2023 3:48 PM EST The [address] [address] XRay Report Signed Patient: ANATOLIY MARIE MR#: [id number] : 1970 Acct:[id number] Age/Sex: 52 / F ADM Date: 06/29/23 Loc: RAD Attending Dr: Triston Velazquez D.O. Ordering Physician: Triston Velazquez D.O. Date of Service: 06/29/23 Procedure(s): XR DEXA axial skeleton Accession Number(s): [id number] cc: Tess Nunn M.D.; Triston Velazquez D.O. [address] [address] Patient Name: ANATOLIY MARIE MRN: [id number] date: 1970 Sex: F Assigned Patient Location: [facility] Current Patient Location: [facility] Accession/Order Number: [id number] Exam Date: 06/29/2023 15:00 Report Date: 06/29/2023 [...] Signed By: 06/29/23 1548 DD/ 1546 TD/TT: Equity Director: Procedure Note Radiology, Radiologist, MD - 06/29/[address] [address] XRay Report Signed Patient: ANATOLIY MARIE LMR#: [id number] : 1970Acct:[id number] Age/Sex: 52 / FADM Date: 06/29/23 Loc: RAD Attending Dr: Triston Velazquez D.O. Ordering Physician: Triston Velazquez D.O. Date of Service: 06/29/23 Procedure(s): XR DEXA axial skeleton Accession Number(s): [id number] cc: Tess Nunn M.D.; Triston Velazquez D.O. The [address] [address] Patient Name: ANATOLIY MARIE MRN: [id number] date: 1970 Sex: F Assigned Patient Location: [facility] Current Patient Location: [facility] Accession/Order Number: [id number] Exam Date: 06/29/2023 15:00 Report Date: 06/29/2023 [...] M.D. Signed By:06/29/23 1548 DD/ 1546 TD/TT: Equity Director: us Triston Velazquez DO [facility] Final Result documented in this encounter Visit Diagnoses Not on filedocumented in this encounter Care Teams Special Needs Teacher Relationship Specialty Start Date End Date Tess Nunn MD PCP - General Family Medicine 06/26/23 documented as of this encounter
--- OUTSIDE RECORDS SUMMARY | 2025-01-06 13:14 | XMS_ITS | Clinical Summary ---
Author Organization [facility] Address [address] [facility] [place] [address] Care Team Providers Care Marine Steamfitter Name Role Phone Tess Nunn MD Primary Care Provider [phone] Allergies No known active allergies Medications levothyroxine (Synthroid, Levoxyl) 88 MCG tablet TAKE ONE TABLET BY MOUTH IN THE MORNING ON AN EMPTY STOMACH ONCE DAILY 3 Active pantoprazole (ProtoNix) 40 MG EC tablet TAKE 1 TABLET BY MOUTH IN THE MORNING AND 1 TABLET AT BEDTIME 3 Active sucralfate (Carafate) 1 g tablet Take by mouth 4 (four) times a day before meals Active estrogens, conjugated, (Premarin) 0.3 MG tabletIndicatio ns:Hot flashes Take 1 tablet (0.3 mg) by mouth Daily Take 1 tablet daily by mouth for 30 days 30 tablet 3 5 Active estradiol (Estrace) 0.5 MG tabletIndicatio ns:Hormone disorder Take 1 tablet (0.5 mg) by mouth Daily Take 1 tablet by mouth for 30 days 30 tablet 11 5 Active venlafaxine XR (Effexor XR) 37.5 MG 24 hr capsuleIndicati ons:Mood disorder Take 1 capsule (37.5 mg) by mouth Daily Do not crush or chew. 30 capsule 3 5 03/26/20 25 Active venlafaxine XR (Effexor XR) 37.5 MG 24 hr capsuleIndicati ons:Mood disorder Take 1 capsule (37.5 mg) by mouth Daily Do not crush or chew. 30 capsule 5 12/27/19 25 Discontinu ed(Reorder ) Encounters Date Type Department Care Team Description 12/26/2024 Refill [facility] [address] [place] [address] Triston Velazquez DO Mood disorder 12/04/[address] [facility] [address] [place] [address] Naty GrahamMICHA 11/20/2024 Clinisync Result Encounter [facility] External Department Unsolicited Triston Velazquez DO from [...] 2:40 PM EST Office Visit [facility] [address] [place] [address] Triston Velazquez DO [address] [place] [address] [place] [address] Health Maintenance Due Date Last Done Comments CT Colonography 1970 FIT-DNA 1970 FIT 1970 FOBT 1970 Sigmoidoscopy 1970 Influenza Vaccine (#1) 2025 , 03/30/2021, 04/01/2020, Additional history exists Mammogram 11/20/2025 11/20/2024, 0611/2023, 11/11/2022, Additional history exists Colonoscopy 11/02/2026 11/02/2016, 01/19/2011 Colorectal Cancer Screening 11/02/2026 Cervical Cancer Screening 07/10/2029 HPV/Cotest 07/10/2029 Pap Smear 07/10/2029 07/10/2024, 06/26/2023 Procedures Procedure Name Priority Date/Time Associated Diagnosis Comments MM TOMOSYNTHESIS SCREENING BI 11/20/2024 12:54 PM EDT PAP SMEAR Routine 07/10/2024 12:00 AM EST from Last 3 Months or Most Recently Relevant to Health Maintenance Results * MM TOMOSYNTHESIS SCREENING BI (11/20/2024 12:54 PM EDT) Anatomical Region Laterality Modality Other 11/20/2024 12:5 4 PM EDT Narrative 11/20/2024 12:55 [place] [address] Mammography Report Signed Patient: ANATOLIY MARIE MR#: [id number] : 1970 Acct:[id number] Age/Sex: 54 / F ADM Date: 11/20/24 Loc: MAMMO Attending Dr: Triston Velazquez D.O. Ordering Physician: Triston Velazquez D.O. Results: Date of Service: 11/20/24 Follow Up: Procedure(s): MM tomosynthesis screening BI Accession Number(s): [id number] cc: Tess Nunn M.D.; Triston Velazquez D.O. Patient Name: ANATOLIY MARIE MR#: [id number] : 1970 Exam Date: 11/20/2024 Ordering Doctor: [...] [facility] BREAST COMPOSITION: The breasts are extremely dense, [...] Signed By: 11/20/24 1255 DD/ 1254 TD/TT: Business Banking Manager: Procedure Note Radiology, Radiologist, - 11/20/2024 [place] [address] Mammography Report Signed Patient: ANATOLIY MARIE LMR#: [id number] : 1970Acct:[id number] Age/Sex: 54 / FADM Date: 11/20/24 Loc: MAMMO Attending Dr: Triston Velazquez D.O. Ordering Physician: Triston Velazquez D.O.Results: Date of Service: 11/20/24Follow Up: Procedure(s): MM tomosynthesis screening BI Accession Number(s): [id number] cc: Tess Nunn M.D.; Triston Velazquez D.O. Patient Name: ANATOLIY MARIE MR#: [id number] : 1970 Exam Date: 11/20/2024 Ordering Doctor: DR TRISTON VELAZQUEZ . RADIOLOGY REPORT PROCEDURE: MM TOMOSYNTHESIS SCREENING BI COMPARISON: MM TOMOSYNTHESIS SCREENING BI, 11/20/2023. MG MAMM [id number] CHRISTAL CAD, 11/11/2022. MG MAMM SCREEN 3D CHRISTAL CAD, 11/10/2021. MG MAMM BILSCRN W CAD DIG, 10/31/2012. INDICATIONS: screening for malignant neoplasm of breast Calculator Name [facility] Breast Cancer Risk Assessment Tool 5 Year Breast Cancer Risk 2.20% Lifetime Breast Cancer Risk 16.10% Personal Breast Cancer No Personal Ovarian Cancer No Treatments None Family Cancers Grandmother-paternal with breast cancer at age 70; Grandmother-maternal with colon/stomach cancer at age 60; Mother withbreast cancer at age 68. LOCATION: [facility] BREAST COMPOSITION: The breasts are extremely dense, [...] M.D. Signed By:11/20/24 1255 DD/ 1254 TD/TT: Business Banking Manager: us Triston Marcus DO [facility] Final Result * Pap Smear (07/10/2024 12:00 AM EST) Swab Cervical swab / Unknown us Triston Marcus DO LAB CYTOLOGY ORDERABLES Final Re sult EXTERNAL LAB from Last 3 Months or Most Recently Relevant to [place] [address] [facility] Care Teams Marine Steamfitter Relationship Specialty Start Date End Date Tess Nunn MD PCP - General Family Medicine 06/26/23
--- OUTSIDE RECORDS SUMMARY | 2025-01-06 13:14 | XMS_ITS | Encounter Summary ---
Author Organization [facility] Address [address] [facility] [place] [address] Care Team Providers Care Assembler Watch Train Name Role Phone Tess Nunn MD Primary Care Provider [phone] Encounter Details Date Type Department Care Team (Late st Contact Info) Description 07/03/2024 Orders Only [facility] [address] [facility] [place] [phone] Tricia Ivy LPN [address] [facility] [place] [facility] Social History Tobacco Use Types Packs/Day [...] 07/14/2025 2:40 PM EST Office Visit [facility] [address] [place] [phone] Agapito Velazquez DO [address] [facility] [address] [place], [facility] documented as of this encounter Procedures Procedure Name Priority Date/Time Associated Diagnosis Comments PAP SMEAR Routine 06/26/2023 12:00 AM EST documented in this encounter Results * Pap Smear (06/26/2023 12:00 AM EST) Swab Cervical swab / Unknown us Marcus Nurse [facility] LAB CYTOLOGY ORDERABLES Final Result EXTERNAL LAB documented in this encounter Visit Diagnoses Not on filedocumented in this encounter Care Teams Assembler Watch Train Relationship Specialty Start Date End Date Tess Nunn MD PCP - General Family Medicine 06/26/23 documented as of this encounter
== END 2025-01-06 13:13 | disposition home or self-care (01) ==
LOC: PST 13:12
PROVIDERS: PCP Family Medicine; Visit Provider Surgery
DX: Z01.818 Encounter for other preprocedural examination (principal); Z87.11 Personal history of peptic ulcer disease; R10.13 Epigastric pain

== ENCOUNTER 2025-01-15 06:23 | Day surgery (SDC) | payer BC, SELFPAY ==
--- NOTE | 2025-01-15 | OP_ITS ---
OPERATION DATE: 01/15/2025 PREOPERATIVE DIAGNOSIS: History of gastroesophageal reflux disease, as well as antral ulcer. POSTOPERATIVE DIAGNOSIS: Persistent antral ulcer. PROCEDURE: EGD with biopsy of antral ulcer and gastric body in the antrum. SURGEON: Anup Pearl M.D. ANESTHESIA: Monitored anesthesia care. ESTIMATED BLOOD LOSS: Less than 1 mL. INDICATIONS AND CONSENT: Patient is a 54-year-old female with history of antral ulcer in the past. She did have healing and then recurrence of the ulcer. Last EGD in September revealed a 1 cm prepyloric ulcer. She did have healing noted one year ago. She had near complete healing, but still some persistent ulcer. She has never had H. pylori in the past. She now presents for surveillance to document healing of the ulcer. Indications, risks, benefits, alternatives of proceeding with EGD were explained extensively to the patient, including the risks of bleeding, aspiration, esophageal/gastric/duodenal perforation or anesthetic complications. All of her questions were answered. Informed consent was obtained. PROCEDURE: Patient brought to the operating room, placed in the left lateral decubitus position. Monitored anesthesia care was provided. Bite block was placed in the patient?s mouth. Scope was inserted into the oropharynx. Under direct visualization, it was advanced into the esophagus, past the cricopharyngeus, down to the stomach. The stomach was insufflated with air. The pylorus was noted to be spastic. It was traversed down to the descending portion of the duodenum. There was no evidence of duodenitis or ulceration. There was scarring within the pyloric channel. No old or new blood. Right at the posterior right antrum, right at the pylorus, was noted to be a small, 5 mm, superficial ulcer with a white base. It was significantly smaller than previous, but was not healed. Biopsies were obtained with pediatric biopsy forceps with good hemostasis. Biopsies were also obtained in the antrum, as well as the gastric body to evaluate for H. pylori. Scope was retroflexed. There was no significant hiatal hernia. The GE junction was noted at approximately 38 cm. The remainder of the esophagus was unremarkable. The scope was then withdrawn. Patient tolerated procedure well, was sent to recovery room in good condition. CC: Tess Nunn M.D. MARRY
--- OUTSIDE RECORDS SUMMARY | 2025-01-15 06:25 | XMS_ITS | CCD ---
Author Organization [facility] Care Team Providers Care Track Mechanic Name Role Phone PIPPA ., DR WILSON Admitting Unavailabl e KARCHIP ., DR WILSON Consulting Unavailabl e PIPPA ., DR WILSON Attending Unavailabl e ARMOND, DR TESS Pickard Primary Care Unavailable DAVEY, DR TYLOR Whitney Consulting Unavailable LEAHY, DR TESS Pickard Consulting Unavailable LEAHY, DR TESS Pickard Attending Unavailable LEAHY, DR TESS Pickard Admitting Unavailable LEAHY, DR TESS Pickard Primary Care Unavailable PIPPA ., DR WILSON Admitting Unavailabl e KARCHIP ., DR WILSON Consulting Unavailabl e KARASIKatalina ., DR WILSON Attending Unavailabl e ARMOND, DR TESS Pickard Primary Care Unavailable TESS LEAHY Primary Care Physician [phone] MD Alis Beth Primary Care Provider [phone] MD Anup Pearl Attending Provider [phone] MD Tess Leahy Primary Care Provider MD Anup Pearl Attending Provider [phone] Tess Leahy MD Primary Care Provider Anup Pearl MD Attending Provider [phone] Tess Leahy MD Primary Care Provider [phone] TRISTON VELAZQUEZ Attending Unavailable GUILHERME ROMO Attending Unavailable Dae, Anup Frias Admitting Unavailable Nill, Anup Frias Attending Unavailable Dae, Anup Frias Admitting Unavailable Tess Leahy Primary Care Unavailable Dae, Anup Frias Attending Unavailable Alis Beth Primary Care Unavailable Dae, Anup Frias Attending Unavailable Dae, Anup Frias Admitting Unavailable Nill Anup ROSALES Attending Provider [phone] Tess Leahy MD Primary Care Provider Anup PEARL Attending Unavailable Anup PEARL Attending Unavailable Anup PEARL Attending Unavailable Allergies Allergy Classification Reported Allergen(s) Allergy Type Date of Onset Reaction(s) Facility (1 source) No Known Medication Allergies; Translations: [No Known Medication Allergies] Propensity to adverse reactions (disorder) [facility] Repository Medications Current Medications Medication Drug [...] 11 07/10/2024 07/10/2024 Discontinued (Ineffective) estrogens, conjugated (skilled nursing) 0.3 mg oral tablet (4 sources) Estrogen [...] Start: 08-30-2023 take 1 tablet by ronal once daily Synthroid 88 mcg Tab 88 [...] Test Name Value Interpretation Reference Range Facility [facility] 12-18-2024 Reminders Reminders From: Taryn Acuna LPN To: N - Clinical; Sent: 10/11/2024 08:23:07 EDT Show up: 12/17/2024 07:00:00 EDT Subject: EGD recall Due Date/Time: 01/01/2025 07:00:00 EDT Reminder/Recall Patient due for EGD 01/01/2025 for history of gastric ulcer. Discussed with patient. She request to have EGD scheduled for January 15. H&P will be updated at time of surgery unless insurance requires visit prior for precet. From: Taryn Acuna LPN (GSN - Clinical) To: Wen Chaudhary; Sent: 12/18/2024 07:56:39 EDT Show up: 12/18/2024 07:56:00 EDT Subject: RE: EGD recall pt is scheduled for 01/15/25 for egd , pre-cert was sent Normal [facility] MM TOMOSYNTHESIS SCREENING B Ion 11-20-2024 [place] [address] Mammography Report Signed Patient: IOANA MARIE MR#: [id number] : 1970 Acct:[id number] Age/Sex: 54 / F ADM Date: 11/20/24 Loc: MAMMO Attending Dr: Triston Velazquez D.O. Ordering Physician: Triston Velazquez D.O. Results: Date of Service: 11/20/24 Follow Up: Procedure(s): MM tomosynthesis screening BI Accession Number(s): [id number] cc: Tess Leahy M.D.; Triston Velazquez D.O. Patient Name: IOANA MARIE MR#: [id number] : 1970 Exam Date: 11/20/2024 Ordering Doctor: [...] breast cancer at age 69. LOCATION: [facility] BREAST COMPOSITION: The breasts are extremely [...] Signed By: 11/20/24 1255 DD/ 1254 TD/TT: Rolling Mill Plugger: [facility] Radiology, Radiologi MD kevin - 11/20/2024 [place] [address] Mammography Report Signed Patient: IOANA MARIE MR#: [id number] : 1970 Acct:[id number] Age/Sex: 54 / F ADM Date: 11/20/24 Loc: MAMMO Attending Dr: Triston Velazquez D.O. Ordering Physician: Triston Velazquez D.O. Results: Date of Service: 11/20/24 Follow Up: Procedure(s): MM tomosynthesis screening BI Accession Number(s): [id number] cc: Tess Leahy M.D.; Triston Velazquez D.O. Patient Name: IOANA MARIE MR#: [id number] : 1970 Exam Date: 11/20/2024 Ordering Doctor: DR TRISTON MARCUS . RADIOLOGY REPORT PROCEDURE: MM TOMOSYNTHESIS SCREENING [...] breast cancer at age 69. LOCATION: [facility] BREAST COMPOSITION: The breasts are extremely [...] Signed By: 11/20/24 1255 DD/ 1254 TD/TT: Rolling Mill Plugger: [facility] Radiology Study observation (narrative) [facility] MM TOMOSYNTHESIS SCREENING B IOrdered By: Radiologist Radiology on 11-20-2024 [facility] Work Phone: Laboratory - Chemistry and C hemistry - challengeon 10-23-2024 Calcium [Mass/Vol] 9.1 mg/dL 8.5-10.1 [facility] No Panel InformationOrdered By: Anup Pearl on 10-02-2024 Miscellaneous Pathology Test See comment [facility] Comment on above: See report. Scanned copy available in EMR. Pathology Request for Lab Co rpon 10-02-2024 Pathology Request for Lab Melodie Normal [facility] Comment on above: Order Comment: GI SP ECIMEN Result Comment: See report. Scanned copy available in EMR. PERFORMED BY: [place] [address] PATHOLOGIST ARBOREAL SCIENTIST JOSHUA MARSHALL M.D. Performed By: #### P ATH TO [facility] #### [address] Ambulatory Visit Summaryon 0 09-24-2024 Ambulatory [...] for choosing us for your care. Normal Alfredo [facility] IGP,APTIMA HPV,AGE GDLNon AGE GDLN ACOG TESTING Note . [facility] Comment on above: TESTS RESULT FLAG UN ITS REF RANGE LAB Clinician Provided Cytology Information Source.............Cervix;Endocervix No. of containers..01 ThinPrep Vial Age Algo ACOG Valencia... FLAG LEGEND: L-Low Normal,H-High Normal,LL-Alert Low,HH-Alert High <-Panic Low,>-Panic High,A-Abnormal,AA-Critical Abnormal Performed at: 01 = [address] [address] Lilo Ferrer MD, HPV APTIMA Negative Negative [facility] Comment on above: This nucleic acid am plification test detects fourteen high- risk HPV types (16,18,31,33,35,39,45,51,52,56,58,59,66,68) without differentiation. Performed at: =[address] [id number] Certified Maintenance Welder: Lilo Ferrer MD, Phone: [phone] Performed at: [address] [place] [id number] Certified Maintenance Welder: Lilo eFrrer MD, Phone: [phone] IGP, APTIMA HPV, RFX 16/18,45 Note . [facility] Comment on above: TESTS RESULT FLAG UN ITS REF RANGE LAB DIAGNOSIS: 02 NEGATIVE FOR INTRAEPITHELIAL LESION OR MALIGNANCY. Specimen adequacy: 02 Satisfactory for evaluation. Endocervical and/or squamous metaplastic cells (endocervical component) are present. Performed by: 02 V[employer]anto[employer] . 02 Note: Note 02 The Pap [...] High,A-Abnormal,AA-Critical Abnormal Performed at: 02 [facility] [address] [place] [address] Lilo Ferrer MD, BRUSH-SPATULA CERVIX ENDOCERVIX CLINISY[facility] Basophils Auto (Bld) [#/Vol] on 02-14-2024 Basophils (Bld) [#/Vol] Automated basophil count 0.0-0.1 [facility] Basophils/100 WBC Auto (Bld) on 02-14-2024 Basophils/100 WBC (Bld) Automated basophil % 0. 2-2.0 [facility] Eosinophils/100 WBC Auto (Bl d)on 02-14-2024 Eosinophils/100 WBC (Bld) Automated eosinophil % High 0.9-7.0 [facility] Erythrocyte distribution wid th Auto (RBC) [Ratio]on 02-14-2024 Erythrocyte distribution width (RBC) [Ratio] Erythrocyte distribution width [Ratio] by Automated count 11.0-15.0 [facility] HCG ( test) IA.rapi d Ql (U)on 02-14-2024 HCG ( test) Ql (U) Urine human chorionic gonadotropin (hCG) detection by immunoassay NEGATIVE [facility] Hematocrit Auto (Bld) [Volum e fraction]on 02-14-2024 Hematocrit (Bld) [Volume fraction] Hematocrit [Volume Fraction] of Blood by Automated count 36.0-48.0 [facility] Hemoglobin [Mass/volume] in Bloodon 02-14-2024 Hemoglobin (Bld) [Mass/Vol] Hemoglobin [Mass/volume] in Blood 12.0-16.0 [facility] Shahab 02-14-2024 L Specimen: [id number] Received: 02/15/24 Status: [facility] Num: [id number] Spec Type: Surgical Subm Dr: Anup Pearl MD FACS Tissues: A Esophagus Biopsy (ANTRAL ULCER BX) Procedures: HE/2, Gross/Micro L4 Age/ Patient Sex Location Account Attending Physician Ioana Marie 53/F LABELL [id number] Anup Pearl MD FACS SPEC NUM: [id number] RECD: 02/15/24 STATUS: [facility] NUM: [id number] CARYN: 02/14/[address]: Anup Pearl MD FACS ENTERED: 02/15/[address]: Rosa,Lab SPEC TYPE: Surgical DEPT: JEFRY TRUONG ENTERED BY: [id number] RECV BY: [id number] ORDERED: HE/2, Gross/Micro L4 ORDERED: BUD/2, Gross/Micro L4 Pathological Diagnosis Antral ulcer biopsy: [...] is entirely submitted in cassette A1. Specimen: [id number] Received: 02/15/24 Status: [facility] Num: [id number] Spec Type: Surgical Subm Dr: Anup Pearl MD FACS Tissues: A Esophagus Biopsy (ANTRAL ULCER BX) Procedures: BUD/Jennifer, Gross/Micro L4 Patient: Ioana Marie [id number] (Continued) Specimen: [id number] Received: 02/15/24 (Continued) Signed (signature on file) Samantha Hirsch MD 02/23/24 0923 Specimen: [id number] Received: 02/15/24 Status: [facility] Num: [id number] Spec Type: Surgical Subm Dr: Anup Pearl MD FACS Tissues: A Esophagus Biopsy (ANTRAL ULCER BX) Procedures: HE/Jennifer, Gross/Micro L4 Patient: Ioana Marie [id number] (Continued) Specimen: [id number] Received: 02/15/24 (Continued) Microscopic Description Microscopic examinations are performed supporting the above interpretation CPT Codes 04681 Specimen: [id number] Received: 02/15/24 Status: [facility]IE Enriquezzaira Num: [id number] Spec Type: Surgical Subm Dr: Anup Pearl MD FACS Tissues: A Esophagus Biopsy (ANTRAL ULCER BX) Procedures: Kehinde BLACK/Timothy L4 Patient: Ioana Marie [id number] (Continued) Signed (signature on file) Samantha Hirsch MD 02/23/249[address] Normal [facility] Laboratory - Hematology and Cell countson 02-14-2024 Immature granulocytes/100 WBC (Bld) 0.2 % 0.0-0.5 [facility] Leukocytes [#/volume] correc stephanie for nucleated erythrocytes in Blood by Automated counon 02-14-2024 WBC corrected for nucl RBC Auto (Bld) [#/Vol] Leukocytes [#/volume] corrected for nucleated erythrocytes in Blood by Automated coun 4.0-11.0 [facility] Lymphocytes Auto (Bld) [#/Vo l]on 02-14-2024 Lymphocytes (Bld) [#/Vol] Lymphocytes [#/volume] in Blood by Automated count 1.2-3.8 [facility] Lymphocytes/100 WBC Auto (Bl d)on 02-14-2024 Lymphocytes/100 WBC (Bld) Lymphocytes/100 leukocytes in Blood by Automated count 20.5-60.0 [facility] MCH Auto (RBC) [Entitic mass ]on 02-14-2024 MCH (RBC) [Entitic mass] MCH [Entitic mass] by Automated count 26.7-34.0 [facility] MCHC Auto (RBC) [Mass/Vol]on 02-14-2024 MCHC (RBC) [Mass/Vol] MCHC [Mass/volume] by Automated count 29.9-35.2 [facility] MCV Auto (RBC) [Entitic vol] on 02-14-2024 MCV (RBC) [Entitic vol] MCV [Entitic vol ume] by Automated count 81.0-99.0 [facility] Monocytes Auto (Bld) [#/Vol] on 02-14-2024 Monocytes (Bld) [#/Vol] Automated blood monocyte count 0.3-0.8 [facility] Monocytes/100 WBC Auto (Bld) on 02-14-2024 Monocytes/100 WBC (Bld) Automated monocyte % 1. 7-12.0 [facility] Neutrophils Auto (Bld) [#/Vo l]on 02-14-2024 Neutrophils (Bld) [#/Vol] Neutrophils [#/volume] in Blood by Automated count 1.4-6.5 [facility] Neutrophils/100 WBC Auto (Bl d)on 02-14-2024 Neutrophils/100 WBC (Bld) Automated neutrophil % Low 43.0-75.0 [facility] No Panel Informationon 02-13 Eosinophils # (Auto) 1.2 10 3/uL High 0.0-0.7 [facility] Immature Granulocyte # (Auto) 0.01 10 3/uL 0.00-0.03 [facility] Platelet mean volume Auto (B ld) [Entitic vol]on 02-14-2024 Platelet mean volume (Bld) [Entitic vol] Platelet mean volume [Entitic volume] in Blood by Automated count 9.5-13.5 [facility] Platelets Auto (Bld) [#/Vol] on 02-14-2024 Platelets (Bld) [#/Vol] Platelets [#/vol ume] in Blood by Automated count 150-450 [facility] RBC Auto (Bld) [#/Vol]on RBC (Bld) [#/Vol] Erythrocytes [#/volu me] in Blood by Automated count 4.20-5.40 [facility] Basophils Auto (Bld) [#/Vol] on 11-14-2023 Basophils (Bld) [#/Vol] 0.1 10 3/uL 0.0-0.1 [facility] Basophils/100 WBC Auto (Bld) on 11-14-2023 Basophils/100 WBC (Bld) 0.8 % 0.2-2.0 [facility] Cholesterol in LDL Calc [Mas s/Vol]on 11-14-2023 Cholesterol in LDL [Mass/Vol] 88.0 mg/dL [facility] Comment on above: <100 mg/dl [id number] 0-129 mg/dl NEAR OR ABOVE [id number] mg/dl BORDERLINE SBKN654-483 mg/dl HIGH>190 mg/dl VERY HIGH Cholesterol in VLDL Calc [Ma ss/Vol]on 11-14-2023 Cholesterol in VLDL [Mass/Vol] 10.2 mg/dL [facility] Eosinophils/100 WBC Auto (Bl d)on 11-14-2023 Eosinophils/100 WBC (Bld) 11.7 % 0.9-7.0 [facility] Erythrocyte distribution wid th Auto (RBC) [Ratio]on 11-14-2023 Erythrocyte distribution width (RBC) [Ratio] 12.0 % 11.0-15.0 [facility] Estimated glomerular filtrat ion rate (GFR) non- Americanon 11-14-2023 GFR/1.73 sq M.predicted among non-blacks MDRD (S/P/Bld) [Vol rate/Area] mL/min/{1.73_m2} >=60 [facility] Globulin Calc (S) [Mass/Vol] on 11-14-2023 Globulin (S) [Mass/Vol] 3.4 g/dL F [facility] Hematocrit Auto (Bld) [Volum e fraction]on 11-14-2023 Hematocrit (Bld) [Volume fraction] 39.6 % 36.0-48.0 [facility] Hemoglobin [Mass/volume] in Bloodon 11-14-2023 Hemoglobin (Bld) [Mass/Vol] 13.2 g/dL 12.0-16.0 [facility] Laboratory - Chemistry and C hemistry - challengeon 11-14-2023 Albumin [Mass/Vol] 3.4 g/dL 3.4-5.0 [facility] ALP [Catalytic activity/Vol] 51 U/L 46-116 [facility] ALT [Catalytic activity/Vol] 16 U/L 14-59 [facility] AST [Catalytic activity/Vol] 21 U/L 15-37 [facility] Bilirubin [Mass/Vol] 1.1 mg/dL 0.2-1.0 [facility] Calcium [Mass/Vol] 8.7 mg/dL 8.5-10.1 [facility] Chloride [Moles/Vol] 103 mmol/L 98-107 [facility] Cholesterol [Mass/Vol] 177 mg/dL <=200 [facility] Cholesterol in HDL [Mass/Vol] 79 mg/dL 40-60 [facility] Comment on above: > or =60 mg/dl - LOW CARDIOVASCULAR RISK<40 mg/dl - HIGH CARDIOVASCULAR RISK CO2 [Moles/Vol] 27.1 mmol/L 21.0-32.0 [facility] Creatinine [Mass/Vol] 0.81 mg/dL 0.55-1.02 [facility] GFR/1.73 sq M.predicted MDRD (S/P/Bld) [Vol rate/Area] mL/min/{1.73_m2} >=60 [facility] Glucose [Mass/Vol] 92 mg/dL 74-106 [facility] Potassium [Moles/Vol] 4.4 mmol/L 3.5-5.1 [facility] Protein [Mass/Vol] 6.8 g/dL 6.4-8.2 [facility] Sodium [Moles/Vol] 137 mmol/L 136-145 [facility] Triglyceride [Mass/Vol] 51 mg/dL <=150 F [facility] Urea nitrogen [Mass/Vol] 21.0 mg/dL 7.0-18.0 [facility] Urea nitrogen/Creatinine [Mass ratio] 25.9 mg/mg [facility] Laboratory - Hematology and Cell countson 11-14-2023 Immature granulocytes/100 WBC (Bld) 0.2 % 0.0-0.5 [facility] Leukocytes [#/volume] correc stephanie for nucleated erythrocytes in Blood by Automated counon 11-14-2023 WBC corrected for nucl RBC Auto (Bld) [#/Vol] 8.4 10 3/uL 4.0-11.0 [facility] Lymphocytes Auto (Bld) [#/Vo l]on 11-14-2023 Lymphocytes (Bld) [#/Vol] 1.7 10 3/uL 1.2-3.8 [facility] Lymphocytes/100 WBC Auto (Bl d)on 11-14-2023 Lymphocytes/100 WBC (Bld) 20.5 % 20.5-60.0 [facility] MCH Auto (RBC) [Entitic mass ]on 11-14-2023 MCH (RBC) [Entitic mass] 31.7 pg 26.7-34.0 [facility] MCHC Auto (RBC) [Mass/Vol]on 11-14-2023 MCHC (RBC) [Mass/Vol] 33.3 g/dL 29.9-35.2 [facility] MCV Auto (RBC) [Entitic vol] on 11-14-2023 MCV (RBC) [Entitic vol] 95.2 fL 81.0-99.0 [facility] Monocytes Auto (Bld) [#/Vol] on 11-14-2023 Monocytes (Bld) [#/Vol] 0.5 10 3/uL 0.3-0.8 [facility] Monocytes/100 WBC Auto (Bld) on 11-14-2023 Monocytes/100 WBC (Bld) 5.5 % 1.7-12.0 [facility] Neutrophils Auto (Bld) [#/Vo l]on 11-14-2023 Neutrophils (Bld) [#/Vol] 5.2 10 3/uL 1.4-6.5 [facility] Neutrophils/100 WBC Auto (Bl d)on 11-14-2023 Neutrophils/100 WBC (Bld) 61.3 % 43.0-75.0 [facility] No Panel Informationon 11-13 Eosinophils # (Auto) 1.0 10 3/uL 0.0-0.7 [facility] Immature Granulocyte # (Auto) 0.02 10 3/uL 0.00-0.03 [facility] Platelet mean volume Auto (B ld) [Entitic vol]on 11-14-2023 Platelet mean volume (Bld) [Entitic vol] 10.3 fL 9.5-13.5 [facility] Platelets Auto (Bld) [#/Vol] on 11-14-2023 Platelets (Bld) [#/Vol] 235 10 3/uL 150-450 [facility] RBC Auto (Bld) [#/Vol]on RBC (Bld) [#/Vol] 4.16 10 6/uL 4.20-5.40 [facility] Serum or plasma albumin/glob ulin mass ratioon 11-14-2023 Albumin/Globulin [Mass ratio] 1.0 {ratio} [facility] Serum or plasma anion gap de terminationon 11-14-2023 Anion gap [Moles/Vol] 11.3 mmol/L [facility] Serum or plasma total choles terol/high density lipoprotein (HDL) cholesterol mass abdirashid 11-14-2023 Cholesterol.total/Shelley sterol in HDL [Mass ratio] 2.2 {ratio} [facility] Comment on above: 3.3 - 4.4 LOW RISK4. 4 - 7.1 AVERAGE RISK7.1 - 11.0 MODERATE RISK>11.0 HIGH RISK Glucose mean value [Mass/vol ume] in Blood Estimated from glycated hemoglobinon 11-07-2023 Average glucose Estimated from glycated hemoglobin (Bld) [Mass/Vol] 105 mg/dL [facility] Laboratory - Chemistry and C hemistry - challengeon 11-07-2023 Ferritin [Mass/Vol] 35.0 ng/mL 8.0-252.0 [facility] Free T4 [Mass/Vol] 0.96 ng/dL 0.76-1.46 [facility] Glucose [Mass/Vol] 88 mg/dL 74-106 [facility] T4 [Mass/Vol] 7.70 ug/dL 4.80-13.90 [facility] TSH Qn 2.126 m[IU]/L 0.358-3.74 0 [facility] Laboratory - Hematology and Cell countson 11-07-2023 HbA1c (Bld) [Mass fraction] 5.3 % 4.5-6.2 [facility] Comment on above: ADA RECOMMENDED LIMI T 4.0 - 6.0ADA THERAPEUTIC TARGET < 7.0ACTION SUGGESTED> 7.0 No Panel Informationon 11-06 25-Hydroxy Vitamin D Total 29.1 ng/mL [facility] Comment on above: <20 ng/mL Vit D defi cient20-<30 ng/mL Vit D alfajrxslqke11-308 ng/mL Vit D sufficient>100 ng/mL Potential Toxicity C-Peptide 1.4 ng/mL 1.1-4.4 [facility] Comment on above: C-Peptide reference interval is for fasting patients. C-Peptide reference interval is for fasting patients. Dehydroepiandrosterone Sulfate 79.4 ug/dL 41.2-243.7 [facility] Free Cortisol, Dialysis, LCMS 0.524 ug/dL . [facility] Comment on above: These tests were dev eloped and their performancecharacteristics determined by [facility]. They have not beencleared or approved by the Food and Drug Administration.Reference Range:8 AM 0.10 - 1.204 PM 0.042 - 0.872Performed at: [employer] [address] [id number] Director: Shiv Padron MD, Phone: [phone] Free Triiodothyronine 2.33 pg/mL 2.18-3.98 [facility] Reverse Triiodothyronine (T3) 16.0 ng/dL 9.2-24.1 [facility] Comment on above: This test was develo ped and its performance characteristicsdetermined by [facility]. It has not been cleared orapproved by the Food and Drug Administration.Performed at: [address] [id number] Director: Jennifer Ruff MD, Phone: [phone] Sex Hormone Binding Globulin 107.0 nmol/L 17.3-125.0 [facility] Comment on above: Performed at: [facility] [employer] [address] [id number] Director: Mark Gallardo PhD, Phone: [phone] Performed at: [employer] [address] [id number] Director: Mark Gallardo PhD, Phone: [phone] Testosterone Level 15 ng/dL 4-50 [facility] Serotonin (P) [Mass/Vol]on 0 11-07-2023 Serotonin 170 ng/mL 31-207 [facility] Comment on above: This test was develo ped and its performance characteristicsdetermined by [facility]. It has not been cleared orapproved by the Food and Drug Administration.Performed at: [facility] [address] [id number] Director: Jennifer Ruff MD, Phone: [phone] This test was develo ped and its performance characteristicsdetermined by [employer]. It has not been cleared orapproved by the Food and Drug Administration.Performed at: [facility] [address] [id number] Director: Jennifer Ruff MD, Phone: [phone] Serum estrone measurementon 11-07-2023 E1 [Mass/Vol] 106 pg/mL . [facility] Comment on above: Range Adult (Premeno pausal) 27 - 231 Menstrual Cycle (1-10 days) 19 - 149 Menstrual Cycle (11-20 days) 32 - 176 Menstrual Cycle (21-30 days) 37 - 200 Adult (Postmenopausal) 0 - 125Performed at: [employer] [id number] [place], [place] [id number] Director: Jennifer Ruff MD, Phone: [phone] Serum or plasma estradiol (E 2) measurement (mass/volume)on 11-07-2023 E2 [Mass/Vol] 238.0 pg/mL . [facility] Comment on above: Adult Female Range F ollicular phase 12.5 - 166.0 Ovulation phase 85.8 - 498.0 Luteal phase 43.8 - 211.0 Postmenopausal <6.0 - 54.7 1st trimester 215.0 - >4300.0Roche ECLIA methodology Serum or plasma insulin hanna urement (units/volume)on 11-07-2023 Insulin Qn 3.5 u[iU]/mL 2.6-24.9 [facility] Comment on above: Performed at: [employer] [place], [place] [id number] Director: Mark Gallardo PhD, Phone: [phone] Serum or plasma progesterone measurement (mass/volume)on 11-07-2023 Progesterone [Mass/Vol] 0.5 ng/mL . [facility] Comment on above: Follicular phase 0.1 - 0.9 Luteal phase 1.8 - 23.9 Ovulation phase 0.1 - 12.0 First trimester 11.0 - 44.3 Second trimester 25.4 - 83.3 Third trimester 58.7 - 214.0 Postmenopausal 0.0 - 0.1 TPO Ab Qnon 11-07-2023 Thyroid Peroxidase Antibodies 382 [IU]/mL 0-34 [facility] Testosterone Free [Mass/Vol] on 11-07-2023 Free Testosterone 0.8 pg/mL 0.0-4.2 [facility] Comment on above: Performed at: [employer] [place], [place] [id number] Director: Mark Gallardo PhD, Phone: [phone] at: [employer] [address] [id number] Director: Jennifer Ruff MD, Phone: [phone] Performed at: [address] [id number] Director: Mark Gallardo PhD, Phone: [phone] at: [address] [id number] Director: Jennifer Ruff MD, Phone: [phone] Thyroglobulin Ab Qnon 2023 Anti-Thyroglobulin Antibody 933.8 [IU]/mL 0.0-0.9 [facility] Comment on above: Thyroglobulin Antibo dy measured by [employer] CoulterMethodologyIt should be noted that the presence of thyroglobulinantibodies may not be pathogenic nor diagnostic, especiallyat very low levels. The assay edger operator has found thatfour percent of individuals without evidence of thyroiddisease or autoimmunity will have positive TgAb levels upto 4 IU/mL.Performed at: [address] [id number] Director: Mark Gallardo PhD, Phone: [phone] Thyroglobulin Antibo dy measured by [employer] MobileodologyIt should be noted that the presence of thyroglobulinantibodies may not be pathogenic nor diagnostic, especiallyat very low levels. The assay edger operator has found thatfour percent of individuals without evidence of thyroiddisease or autoimmunity will have positive TgAb levels upto 4 IU/mL.Performed at: [address] [id number] Director: Mark Gallardo PhD, Phone: [phone] Thyroglobulin Antibo dy measured by [employer] Mobile[employer]ologyIt should be noted that the presence of thyroglobulinantibodies may not be pathogenic nor diagnostic, especiallyat very low levels. The assay edger operator has found thatfour percent of individuals without evidence of thyroiddisease or autoimmunity will have positive TgAb levels upto 4 IU/mL.Performed at: [facility] [address] [address] [id number] Director: Mark Gallardo PhD, Phone: [phone] Thyroglobulin [Mass/volume] in Serum or Plasmaon 11-07-2023 Thyroglobulin [Mass/Vol] 9.4 ng/mL . [facility] Comment on above: This test was develo ped and its performance characteristicsdetermined by [employer]. It has not been cleared or approvedby [...] assay quantitation limit is 2.0 ng/mL.Performed at: [facility] [address] [id number] Director: Shiv Padron MD, Phone: [phone] HCG ( test) IA.rapi d Ql (U)on 10-11-2023 HCG ( test) Ql (U) Negative NEGATIVE [facility] Shahab 10-11-2023 L Specimen: [id number] Received: 10/11/23 Status: SOU Re Num: [id number] Spec Type: Surgical Subm Dr: Anup Pearl MD FACS Tissues: A Stomach - Biopsy/Polyp (ANTRUM BX) Procedures: HE/2, Gross/Micro L4 Age/ Patient Sex Location Account Attending Physician Ioana Marie 52/F LABELL [id number] Anup Pearl MD FACS SPEC NUM: [id number] RECD: 10/11/23 STATUS: [facility] NUM: [id number] CARYN: 10/11/[address]: Anup Pearl MD FACS ENTERED: 10/11/23 [facility] DR: Prerna Lee SPEC TYPE: Surgical [...] Antral ulcer, small hiatal hernia CPT Codes 45955, 20877 Specimen: [id number] Received: 10/11/23 Status: KATIE Quinn Num: [id number] Spec Type: Surgical Subm Dr: Anup Pearl MD FACS Tissues: A Stomach - Biopsy/Polyp (ANTRUM BX) Procedures: BUD/Jennifer, Kehinde/Timothy L4 Patient: Ioana Marie [id number] (Continued) Signed (signature on file) Joshua Marshall MD 10/12/23 1548 Normal [facility] MG MAMM SCREEN 3D CHRISTAL CADon 11-11-2022 MG MAMM SCREEN 3D CHRISTAL CAD Patient: IOANA MARIE Exam Date: 11/11/2022 : 1970 Gender:F Ordering : DR TRISTON VELAZQUEZ . Admission #: [id number] Family : Order #: [id number] CLICK HERE TO VIEW EXAM RADIOLOGY REPORT [...] breast cancer at age 69. LOCATION: [facility] BREAST COMPOSITION: Extremely dense, which lowers [...] Andrade MD on 11/11/2022 at 13:58 Normal [facility] CBC AUTO DIFFon 11-01-2022 BASO # 0.1 103/ul Normal 0.0-0.1 [facility] Comment on above: Performed By: #### C BC #### [facility] [address] [address] [address] Edelmira Hirsch Basophils/100 WBC (Bld) 1.0 % Normal 0.2-2.[address] [facility] Comment on above: Performed By: #### C BC #### [facility] [address] [place] [address] Dr. Edelmira Hirsch EO # 1.0 103/ul Critically high 0.0-0.7 [facility] Comment on above: Performed By: #### C BC #### [facility] [address] [place] [address] Dr. Edelmira Hirsch Eosinophils/100 WBC (Bld) 13.9 % Critically high 0.9-7.0 [facility] Comment on above: Performed By: #### C BC #### [facility] [address] [place] [address] Dr. Edelmira Hirsch Erythrocyte distribution width (RBC) [Ratio] 12.2 % Normal 11.0-15.0 [facility] Comment on above: Performed By: #### C BC #### [facility] [address] [place] [address] Dr. Edelmira Hirsch Hematocrit (Bld) [Volume fraction] 40.5 % Normal 36.0-48.0 [facility] Comment on above: Performed By: #### C BC #### [facility] [address] [place] [address] Dr. Edelmira Hirsch Hemoglobin (Bld) [Mass/Vol] 13.8 g/dL Normal 12.0-16.0 [facility] Comment on above: Performed By: #### C BC #### [facility] [address] [place] [address] Dr. Edelmira Hirsch IG # 0.02 10e3/ul Normal 0.00-0.03 [facility] Comment on above: Performed By: #### C BC #### [facility] [address] [place] [address] Dr. Edelmira Hirsch IG % 0.3 % Normal 0.0-0.5 [facility] Comment on above: Performed By: #### C BC #### [facility] [address] [place] [address] Dr. Edelmira Hirsch LYMPH # 1.8 103/ul Normal 1.2-3.8 [facility] Comment on above: Performed By: #### C BC #### [facility] [address] [place] [address] Dr. Edelmira Hirsch Lymphocytes/100 WBC (Bld) 24.6 % Normal 20.5-60.0 [facility] Comment on above: Performed By: #### C BC #### [facility] [address] [place] [address] Dr. Edelmira Hirsch MANUAL DIFF REQ NO Normal [facility] Comment on above: Performed By: #### C BC #### [facility] [address] [place] [address] Dr. Edelmira Hirsch MCH (RBC) [Entitic mass] 32.2 pg Normal 26.7-34.0 [facility] Comment on above: Performed By: #### C BC #### [facility] [address] [place] [address] Dr. Edelmira Hirsch MCHC (RBC) [Mass/Vol] 34.1 g/dL Normal 29.9-35.2 [facility] Comment on above: Performed By: #### C BC #### [facility] [address] [place] [address] Dr. Edelmira Hirsch MCV (RBC) [Entitic vol] 94.6 fL Normal 81.0-99.[address] [facility] Comment on above: Performed By: #### C BC #### [facility] [address] [place] [address] Dr. Edelmira Hirsch MONO # 0.5 103/ul Normal 0.3-0.8 [facility] Comment on above: Performed By: #### C BC #### [facility] [address] [place] [address] Dr. Edelmira Hirsch Monocytes/100 WBC (Bld) 6.5 % Normal 1.7-12.[address] [facility] Comment on above: Performed By: #### C BC #### [facility] [address] [place] [address] Dr. Edelmira Hirsch NEUT # 3.8 103/ul Normal 1.4-6.5 [facility] Comment on above: Performed By: #### C BC #### [facility] [address] [address] [address] Edelmira Hirsch Neutrophils/100 WBC (Bld) 53.7 % Normal 43.0-75.0 [facility] Comment on above: Performed By: #### C BC #### [facility] [address] [place] [address] Dr. Edelmira Hirsch Platelet mean volume (Bld) [Entitic vol] 10.0 fL Normal 9.5-13.5 [facility] Comment on above: Performed By: #### C BC #### [facility] [address] [place] [address] Dr. Edelmira Hirsch PLT 276 103/ul Normal 150-450 [facility] Comment on above: Performed By: #### C BC #### [facility] [address] [place] [address] Dr. Edelmira Hirsch RBC 4.28 106/ul Normal 4.20-5.40 [facility] Comment on above: Performed By: #### C BC #### [facility] [address] [place] [address] Dr. Edelmira Hirsch WBC 7.1 103/ul Normal 4.0-11.0 [facility] Comment on above: Performed By: #### C BC #### [facility] [address] [place] [address] Dr. Edelmira Hirsch GLYCOHEMOGLOBIN A1Con 2022 ADA RECOMMENDATION SEE BELOW Normal [facility] Comment on above: Result Comment: ADA RECOMMENDED LIMIT 4.0 - 6.0 ADA THERAPEUTIC TARGET < 7.0 ACTION SUGGESTED > 7.0 Performed By: #### A 1C #### [facility] [address] [place] [address] Dr. Edelmira Hirsch Glucose [Mass/Vol] 100 mg/dL Normal [facility] Comment on above: Performed By: #### A 1C #### [facility] [address] [place] [address] Dr. Edelmira Hirsch HbA1c (Bld) [Mass fraction] 5.1 % Normal 4.5-6.2 [facility] Comment on above: Performed By: #### A 1C #### [facility] [address] [address] [address] Edelmira Hirsch LIPID PROFILEon 11-01-2022 CHOL-HDL RATIO NORM SEE BELOW Normal [facility] Comment on above: Result Comment: 3.3 - 4.4 LOW RISK 4.4 - 7.1 AVERAGE RISK 7.1 - 11.0 MODERATE RISK >11.0 HIGH RISK Performed By: #### L IPID, CMP, TSH #### [facility] [address] [address] [address] Edelmira Hirsch Cholesterol [Mass/Vol] 164 mg/dL Normal <=200 Th [facility] Comment on above: Performed By: #### L IPID, CMP, TSH #### [facility] [address] [address] [address] Edelmira Hirsch Cholesterol in HDL [Mass/Vol] 80 mg/dL Critically high 40-60 [facility] Comment on above: Performed By: #### L IPID, CMP, TSH #### [facility] [address] [address] [address] Edelmira Hirsch Cholesterol in LDL [Mass/Vol] 76.8 mg/dL Normal [facility] Comment on above: Performed By: #### L IPID, CMP, TSH #### [facility] [address] [address] [address] Edelmira Hirsch Cholesterol.total/Shelley sterol in HDL [Mass ratio] 2.1 {ratio} Normal [facility] Comment on above: Performed By: #### L IPID, CMP, TSH #### [facility] [address] [address] [address] Edelmira Hirsch HDL NORMAL > or = 60 mg/dl - LO W CARDIOVASCULAR RISK <40 mg/dl - HIGH CARDIOVASCULAR RISK Normal [facility] Comment on above: Performed By: #### L IPID, CMP, TSH #### [facility] [address] [place] [address] Dr. Edelmira Hirsch LDL CALC NORMAL SEE BELOW Normal [facility] Comment on above: Result Comment: <100 mg/dl OPTIMAL 100 - 129 mg/dl NEAR OR ABOVE OPTIMAL 130 - 159 mg/dl BORDERLINE HIGH 160 - 189 mg/dl HIGH >190 mg/dl VERY HIGH Performed By: #### L IPID, CMP, TSH #### [facility] [address] [address] [address] Edelmira Hirsch Triglyceride [Mass/Vol] 36 mg/dL Normal <=150 T [facility] Comment on above: Performed By: #### L IPID, CMP, TSH #### [facility] [address] [address] [address] Edelmira Hirsch VLDL CALC 7.2 mg/dL Normal [facility] Comment on above: Performed By: #### L IPID, CMP, TSH #### [facility] [address] [address] [address] Edelmira Hirsch PROF 14(COMP METB)on 023 Albumin [Mass/Vol] 3.5 g/dL Normal 3.4-5.0 [facility] Comment on above: Performed By: #### L IPID, CMP, TSH #### [facility] [address] [address] [address] Edelmira Hirsch Albumin/Globulin [Mass ratio] 0.9 {ratio} Normal [facility] Comment on above: Performed By: #### L IPID, CMP, TSH #### [facility] [address] [place] [address] Dr. Edelmira Hirsch ALP [Catalytic activity/Vol] 51 U/L Normal 46-116 [facility] Comment on above: Performed By: #### L IPID, CMP, TSH #### [facility] [address] [address] [address] Edelmira Hirsch ALT [Catalytic activity/Vol] 23 U/L Normal 14-59 [facility] Comment on above: Performed By: #### L IPID, CMP, TSH #### [facility] [address] [place] [address] Dr. Edelmira Hirsch Anion gap [Moles/Vol] 11.2 mmol/L Normal [facility] Comment on above: Performed By: #### L IPID, CMP, TSH #### [facility] [address] [place] [address] Dr. Edelmira Hirsch AST [Catalytic activity/Vol] 18 U/L Normal 15-37 [facility] Comment on above: Performed By: #### L IPID, CMP, TSH #### [facility] [address] [place] [address] Dr. Edelmira Hirsch Bilirubin [Mass/Vol] 0.9 mg/dL Normal 0.2-1.0 [facility] Comment on above: Performed By: #### L IPID, CMP, TSH #### [facility] [address] [place] [address] Dr. Edelmira Hirsch Calcium [Mass/Vol] 9.4 mg/dL Normal 8.5-10.1 [facility] Comment on above: Performed By: #### L IPID, CMP, TSH #### [facility] [address] [place] [address] Dr. Edelmira Hirsch Chloride [Moles/Vol] 104 mmol/L Normal 98-107 [facility] Comment on above: Performed By: #### L IPID, CMP, TSH #### [facility] [address] [place] [address] Dr. Edelmira Hirsch CO2 [Moles/Vol] 29.5 mmol/L Normal 21.0-32.0 [facility] Comment on above: Performed By: #### L IPID, CMP, TSH #### [facility] [address] [place] [address] Dr. Edelmira Hirsch Creatinine [Mass/Vol] 0.86 mg/dL Normal 0.55-1.02 [facility] Comment on above: Performed By: #### L IPID, CMP, TSH #### [facility] [address] [place] [address] Dr. Edelmira Hirsch EGFR-AF SWISS >60 Normal >=60 [facility] Comment on above: Performed By: #### L IPID, CMP, TSH #### [facility] [address] [place] [address] Dr. Edelmira Hirsch EGFR-NON AF SWISS >60 Normal >=60 [facility] Comment on above: Performed By: #### L IPID, CMP, TSH #### [facility] [address] [address] [address] Edelmira Hirsch Globulin (S) [Mass/Vol] 3.7 g/dL Normal [facility] Comment on above: Performed By: #### L IPID, CMP, TSH #### [facility] [address] [address] [address] Edelmira Hirsch Glucose [Mass/Vol] 97 mg/dL Normal 74-106 [facility] Comment on above: Performed By: #### L IPID, CMP, TSH #### [facility] [address] [place] [address] Dr. Edelmira Hirsch Potassium [Moles/Vol] 4.7 mmol/L Normal 3.5-5.1 [facility] Comment on above: Performed By: #### L IPID, CMP, TSH #### [facility] [address] [place] [address] Dr. Edelmira Hirsch Protein [Mass/Vol] 7.2 g/dL Normal 6.4-8.2 [facility] Comment on above: Performed By: #### L IPID, CMP, TSH #### [facility] [address] [place] [address] Dr. Edelmira Hirsch Sodium [Moles/Vol] 140 mmol/L Normal 136-145 [facility] Comment on above: Performed By: #### L IPID, CMP, TSH #### [facility] [address] [place] [address] Dr. Edelmira Hirsch Urea nitrogen [Mass/Vol] 14.0 mg/dL Normal 7.0-18.0 [facility] Comment on above: Performed By: #### L IPID, CMP, TSH #### [facility] [address] [place] [address] Dr. Edelmira Hirsch Urea nitrogen/Creatinine [Mass ratio] 16.3 mg/mg Normal [facility] Comment on above: Performed By: #### L IPID, CMP, TSH #### [facility] [address] [place] [address] Dr. Edelmira Hirsch TSHon 11-01-2022 TSH 2.540 uIU/mL Normal 0.358-3.74 0 [facility] Comment on above: Performed By: #### L IPID, CMP, TSH #### [facility] [address] [address] [address] Edelmira Hirsch PAP ACOG PANEL 2: 30 to 65on 06-27-2022 . . Normal [facility] Comment on above: Result Comment: Perf ormed at: WB Performed By: #### 4 [id number] #### [facility] [address] [address] [address] Edelmira Hirsch Age Gdln ACOG Testing - Normal [facility] Comment on above: Performed By: #### 4 [id number] #### [facility] [address] [address] [address] Edelmira Hirsch DIAGNOSIS: Comment Normal [facility] Comment on above: Result Comment: NEGA TIVE FOR INTRAEPITHELIAL LESION OR MALIGNANCY. Performed at: WB Performed By: #### 4 [id number] #### [facility] [address] [place] [address] Dr. Edelmira Hirsch HPV Aptima Negative Normal Negative [facility] Comment on above: Result Comment: This nucleic acid amplification test detects fourteen high-risk HPV types (16,18,31,33,35,39,45,51,52,56,58,59,66,68) without differentiation. Performed at: =G Performed By: #### 4 [id number] #### [facility] [address] [place] [address] Dr. Edelmira Hirsch HPV Genotype Reflex Comment Normal [facility] Comment on above: Result Comment: Crit eria not met, HPV Genotype not performed. Performed at: WB Performed By: #### 4 [id number] #### [facility] [address] [address] [address] Edelmira Hirsch Methodology: Comment Normal [facility] Comment on above: Result Comment: This liquid based ThinPrep(R) pap test was screened with the use of an image guided system. Performed at: WB Performed By: #### 4 [id number] #### [facility] [address] [place] [address] Dr. Edelmira Hirsch Note: Comment Normal [facility] Comment on above: Result Comment: The Pap smear is a screening test designed to aid in the detection of premalignant and malignant conditions of the uterine cervix. It is not a diagnostic procedure and should not be used as the sole means of detecting cervical cancer. Both false-positive and false-negative reports do occur. . Performed at: WB Performed By: #### 4 [id number] #### [facility] [address] [place] [address] Dr. Edelmira Hirsch Performed by: Comment Normal [facility] Comment on above: Result Comment: Aury Andrade, Professor Of [employer] (AS[employer]) Performed at: WB Performed By: #### 4 [id number] #### [facility] [address] [place] [address] Dr. Edelmira Hirsch Specimen adequacy: Comment Normal [facility] Comment on above: Result Comment: Sati sfactory for evaluation. Endocervical and/or squamous metaplastic cells (endocervical component) are present. Performed at: WB Performed By: #### 4 [id number] #### [facility] [address] [place] [address] Dr. Edelmira Hirsch Nicotine and Metabolite, Harlan nt LCon 04-04-2021 Cotinine LC <1.0 Invalid Interpretation Code [facility] Comment on above: Result Comment: This test was developed and its performance characteristics determined by [facility]. It has not been cleared or approved by the Food and Drug Administration. Cotinine levels greater than 20.0 are consistent with the use of tobacco or tobacco cessation products. Performed At: [address] [id number] Speedy Rodriguez MD Ph:[phone] Performed By: #### 1 [id number], [id number], [id number], [id number], [id number], 5821409 #### [facility] (DEFAULT) [address] [place] [address] Nicotine LC <1.0 Invalid Interpretation Code [facility] Comment on above: Result Comment: This test was developed and its performance characteristics determined by [facility]. It has not been cleared or approved by the Food and Drug Administration. Nicotine levels greater than 2.0 are consistent with the use of tobacco or tobacco cessation products. Performed By: #### 1 [id number], [id number], [id number], [id number], 52479567, 2794045 #### [facility] (DEFAULT) [address] [place] [address] .Auto Diff 03-30-2021 Auto [place] % 7 % Normal 06-30 [facility] Comment on above: Performed By: #### 1 [id number], [id number], [id number], 7395632385, 55389521, 7003158 #### [facility] (DEFAULT) [address] [place] [address] Baso Abs# 0.0 x10 Normal 0.0-0.2 [facility] Comment on above: Performed By: #### 1 3460778, [id number], [id number], 4656662404, 73685291, 2197603 #### [facility] (DEFAULT) [address] [place] [address] Basophils/100 WBC (Bld) 0.4 % Normal 0.2-2.0 [facility] Comment on above: Performed By: #### 1 [id number], [id number], 4043949266, 7514517934, 87828860, 3376706 #### [facility] (DEFAULT) [address] [place] [address] Eos Abs# 1.0 x10 High 0.0-0.4 [facility] Comment on above: Performed By: #### 1 7757174, [id number], 3993834701, 3484139394, 37807740, 7979116 #### [facility] (DEFAULT) [address] [place] [address] Eosinophils/100 WBC (Bld) 13.5 % High 0.9-4.0 [facility] Comment on above: Performed By: #### 1 4743377, [id number], 3109468552, 9906121196, 34488907, 7084886 #### [facility] (DEFAULT) [address] [place] [address] Lymph Abs# 2.1 x10 Normal 1.3-2.9 [facility] Comment on above: Performed By: #### 1 2068594, [id number], 3616202001, 2535518151, 96030948, 1231102 #### [facility] (DEFAULT) [address] [place] [address] Lymphocytes/100 WBC (Bld) 29 % Normal 14-48 [facility] Comment on above: Performed By: #### 1 4630750, [id number], 6774424527, 1731719798, 17893522, 5375903 #### [facility] (DEFAULT) [address] [place] [address] [place] Abs# 0.5 x10 Normal 0.0-0.8 [facility] Comment on above: Performed By: #### 1 6019804, 6188094217, 5293105900, 7550835691, 99915484, 9423896 #### [facility] (DEFAULT) [address] [place] [address] Neut Abs# 3.5 x10 Normal 1.5-9.2 [facility] Comment on above: Performed By: #### 1 6821096, 2297928548, 2445519669, 0056728561, 63483698, 3472800 #### [facility] (DEFAULT) [address] [place] [address] Neutrophils/100 WBC (Bld) 50 % Normal 44-88 [facility] Comment on above: Performed By: #### 1 0284777, 9178302391, 5013708845, 6154768793, 91446167, 0659841 #### [facility] (DEFAULT) [address] [place] [address] CBC w/ Auto Diffon Erythrocyte distribution width (RBC) [Ratio] 13.2 % Normal 11.5-15.0 [facility] Comment on above: Performed By: #### 1 8594418, [id number], 1056348507, 8731711579, 24974172, 7182368 #### [facility] (DEFAULT) [address] [place] [address] Hematocrit (Bld) [Volume fraction] 38.4 % Normal 33.7-40.4 [facility] Comment on above: Performed By: #### 1 5689236, 3406161623, 0291733132, 3352331013, 37677948, 3612648 #### [facility] (DEFAULT) [address] [place] [address] Hemoglobin (Bld) [Mass/Vol] 12.4 g/dL Normal 11.3-15.9 [facility] Comment on above: Performed By: #### 1 9055044, [id number], 0243265492, 3426953286, 29559066, 0848109 #### [facility] (DEFAULT) [address] [place] [address] Instr WBC 7.1 x10 Invalid Interpretation Code [facility] Comment on above: Performed By: #### 1 [id number], [id number], 7052594312, 4418820819, 72446431, 1615608 #### [facility] (DEFAULT) [address] [place] [address] Man Diff? Auto Normal [facility] Comment on above: Performed By: #### 1 3642245, [id number], 7262888241, 2904207493, 91203057, 8024873 #### [facility] (DEFAULT) [address] [place] [address] MCH (RBC) [Entitic mass] 30 pg Normal 24-34 [facility] Comment on above: Performed By: #### 1 7132071, 5887732541, 8154058142, 9341090338, 39400768, 2988641 #### [facility] (DEFAULT) [address] [place] [address] MCHC (RBC) [Mass/Vol] 32 g/dL Normal 26-37 [facility] Comment on above: Performed By: #### 1 [id number], 0337392993, 6137766743, 3957664335, 31406237, 3789376 #### [facility] (DEFAULT) [address] [place] [address] MCV (RBC) [Entitic vol] 94 fL Normal 81-100 [facility] Comment on above: Performed By: #### 1 1949891, 2554750729, 5543829771, 9043521489, 18965138, 6547638 #### [facility] (DEFAULT) [address] [place] [address] Platelet 265 x10 Normal 138-427 [facility] Comment on above: Performed By: #### 1 4142582, 8386637239, 8700676514, 1355612285, 66756010, 3890354 #### [facility] (DEFAULT) [address] [place] [address] Platelet mean volume (Bld) [Entitic vol] 10.3 fL High 6.3-10.2 [facility] Comment on above: Performed By: #### 1 4648553, 7313702817, 7132667910, 6045292345, 02733853, 8697947 #### [facility] (DEFAULT) [address] [place] [address] RBC 4.10 x10 Normal 3.70-5.30 [facility] Comment on above: Performed By: #### 1 6742909, 4364657086, 1572862923, 6651036924, 48052740, 8071945 #### [facility] (DEFAULT) [address] [place] [address] WBC 7.1 x10 Normal 3.5-10.5 [facility] Comment on above: Performed By: #### 1 6216320, 1911505950, 4293763763, 7546708223, 49895119, 0660901 #### [facility] (DEFAULT) [address] [place] [address] CMP Standardon 03-30-2021 eGFR Non AA >60 Invalid Interpretation Code [facility] Comment on above: Performed By: #### 1 9444247, 1538765137, 8171921041, 7949472819, 33733721, 7432043 #### [facility] (DEFAULT) [address] [place] [address] eGFR AA >60 Invalid Interpretation Code [facility] Comment on above: Result Comment: Graduate Rec[employer]iter roddy Kidney disease could be indicated at eGFRs of less than 60 ml/min/1.73m2. Kidney Failure is indicated at less than 15 ml/min/1.73m2 Performed By: #### 1 9182075, 8260298984, 8939552638, 0439903344, 87502337, 4679878 #### [facility] (DEFAULT) [address] [place] [address] 90684 Albumin [Mass/Vol] 3.6 g/dL Normal 3.5-5.0 [facility] Comment on above: Performed By: #### 1 2808486, 4941799150, 6452188831, 3082617042, 88114487, 2387231 #### [facility] (DEFAULT) [address] [place] [address] 54567 Albumin/Globulin [Mass ratio] 1.1 {ratio} Low 1.4-2.6 [facility] Comment on above: Performed By: #### 1 2476347, 7434328499, 4515363098, 8784179127, 15083092, 8868552 #### [facility] (DEFAULT) [address] [place] [address] 32295 Alk Phos 61 IU/L Normal 32-91 [facility] Comment on above: Performed By: #### 1 1127594, 8144670405, 5667935360, 7846407098, 79217362, 3927194 #### [facility] (DEFAULT) [address] [place] [address] 57064 ALT [Catalytic activity/Vol] 14.0 U/L Normal 14.0-54.0 [facility] Comment on above: Performed By: #### 1 9223215, 9915344531, 6349125402, 6548445989, 54256570, 7721849 #### [facility] (DEFAULT) [address] [place] [address] 32445 Anion gap [Moles/Vol] 9.0 mmol/L Normal 5.0-19.0 [facility] Comment on above: Performed By: #### 1 7515474, 9682406433, 3470678512, 2670897951, 24318733, 1880783 #### [facility] (DEFAULT) [address] [place] [address] 61095 AST [Catalytic activity/Vol] 21 U/L Normal 15-41 [facility] Comment on above: Performed By: #### 1 2147883, 0438068802, 5624987070, 9832220680, 87062627, 3736944 #### [facility] (DEFAULT) [address] [place] [address] 26361 Bili Total 0.9 mg/dL Normal 0.3-1.2 [facility] Comment on above: Performed By: #### 1 9517600, 9402373147, 7235590570, 4295952180, 05736205, 8467431 #### [facility] (DEFAULT) [address] [place] [address] 41801 Calcium [Mass/Vol] 8.6 mg/dL Low 8.9-10.3 [facility] Comment on above: Performed By: #### 1 4882670, 7577611596, 3159132417, 7107035827, 16297389, 8553758 #### [facility] (DEFAULT) [address] [place] [address] 54340 Chloride [Moles/Vol] 103 mmol/L Normal 101-111 [facility] Comment on above: Performed By: #### 1 5249107, 1072413669, 5581482204, 7223609059, 54589193, 5821907 #### [facility] (DEFAULT) [address] [place] [address] 81170 CO2 [Moles/Vol] 27 mmol/L Normal 21-32 [facility] Comment on above: Performed By: #### 1 5048718, 0766969792, 4213467713, 0176409912, 87788893, 6942804 #### [facility] (DEFAULT) [address] [place] [address] 30630 Creatinine [Mass/Vol] 0.81 mg/dL Normal 0.60-1.30 [facility] Comment on above: Performed By: #### 1 6642118, 6885274039, 5202534423, 4445587482, 75678747, 6685018 #### [facility] (DEFAULT) [address] [place] [address] 69221 Globulin (S) [Mass/Vol] 3.4 g/dL Normal 1.5-4.3 [facility] Comment on above: Performed By: #### 1 1289064, 9822387015, 0997152314, 8834499686, 03590861, 5371737 #### [facility] (DEFAULT) [address] [place] [address] 24313 Glucose [Mass/Vol] 89.0 mg/dL Normal 74.0-118.0 [facility] Comment on above: Performed By: #### 1 0605200, 8310831488, 7917477137, 2270574590, 60062889, 6763264 #### [facility] (DEFAULT) [address] [place] [address] 12093 Osmolality 269 mOsm/L Invalid Interpretation Code [facility] Comment on above: Performed By: #### 1 1241828, 3361151619, 3039652859, 0777926653, 71723052, 6881132 #### [facility] (DEFAULT) [address] [place] [address] 35268 Potassium [Moles/Vol] 4.0 mmol/L Normal 3.6-5.1 [facility] Comment on above: Performed By: #### 1 1849256, 5350930987, 0677993770, 9251464444, 70411946, 6436766 #### [facility] (DEFAULT) [address] [place] [address] 91084 Protein [Mass/Vol] 7.0 g/dL Normal 6.5-8.1 [facility] Comment on above: Performed By: #### 1 1387687, 5038388838, 5853412056, 2773513136, 81829634, 1394846 #### [facility] (DEFAULT) [address] [place] [address] 49258 Sodium [Moles/Vol] 135.0 mmol/L Low 136.0-144 . 0 [facility] Comment on above: Performed By: #### 1 3380367, 8986860363, 7118129158, 4409565602, 61575282, 5682007 #### [facility] (DEFAULT) [address] [place] [address] Urea nitrogen [Mass/Vol] 12 mg/dL Normal 8-26 [facility] Comment on above: Performed By: #### 1 0133440, 9610207774, 6325884457, 6722694030, 71255255, 9620941 #### [facility] (DEFAULT) [address] [place] [address] Urea nitrogen/Creatinine [Mass ratio] 15.0 mg/mg Normal 4.6-16.2 [facility] Comment on above: Performed By: #### 1 1157800, 6500414108, 9230943251, 1984549397, 38142529, 1735314 #### [facility] (DEFAULT) [address] [place] [address] HgbA1c Standardon 03-30-2021 .Hb 14.4 Invalid Interpretation Code [facility] Comment on above: Performed By: #### 1 1153571, 4569297327, 3996936181, 5954460034, 17541997, 1657357 #### [facility] (DEFAULT) [address] [place] [address] .Hgb A1c 0.48 g/dL Invalid Interpretation Code [facility] Comment on above: Performed By: #### 1 4791004, 4326545784, 7926125586, 9506890209, 84388116, 4367482 #### [facility] (DEFAULT) [address] [place] [address] Glucose [Mass/Vol] 103 mg/dL Invalid Interpretation Code [facility] Comment on above: Performed By: #### 1 0666591, 7926228001, 1603073782, 1762891643, 42689621, 9137226 #### [facility] (DEFAULT) [address] [place] [address] HbA1c (Bld) [Mass fraction] 5.2 % Normal 4.6-6.2 [facility] Comment on above: Performed By: #### 1 8094163, 1961790838, 7199694523, 6540318581, 32015117, 6620791 #### [facility] (DEFAULT) [address] [place] [address] 25272 Lipid Panel Standardon 03-30 Cholesterol [Mass/Vol] 171.0 mg/dL Normal 66.0-200.0 [facility] Comment on above: Result Comment: Rosalind rable - Less than 200 mg/dL Borderline high risk - 200-239 mg/dL High risk - 240 mg/dL and over. Performed By: #### 1 3049564, 2320686861, 5308719386, 5139348726, 47810349, 8453635 #### [facility] (DEFAULT) [address] [place] [address] 65948 Cholesterol in HDL [Mass/Vol] 64 mg/dL Normal 40-71 [facility] Comment on above: Result Comment: High risk - <40 mg/dL. Performed By: #### 1 0353216, 7277656930, 2684568451, 9585993200, 88265553, 8448621 #### [facility] (DEFAULT) [address] [place] [address] 42332 Cholesterol in LDL [Mass/Vol] 93 mg/dL Normal 1-100 [facility] Comment on above: Result Comment: Opti mal - Less than 100 mg/dL Borderline high risk - 130-159 mg/dL High risk - 160-189 mg/dL. Performed By: #### 1 9741631, 0179169973, 4109768928, 8988470694, 58229845, 9798341 #### [facility] (DEFAULT) [address] [place] [address] 67448 Cholesterol.total/Shelley sterol in HDL [Mass ratio] 2.7 {ratio} Normal 0.0-4.5 [facility] Comment on above: Performed By: #### 1 7834897, 6672300320, 4416970051, 2639881749, 09465177, 0367219 #### [facility] (DEFAULT) [address] [place] [address] 40914 Triglyceride [Mass/Vol] 73.0 mg/dL Normal 0.0-150.0 [facility] Comment on above: Performed By: #### 1 1806261, 3160157767, 1146073251, 6321353650, 14428395, 9741894 #### [facility] (DEFAULT) [address] [place] [address] VLDL. 15 mg/dL Normal 5-40 [facility] Comment on above: Performed By: #### 1 3087895, 0192826707, 5321003505, 5616721771, 26826943, 9543951 #### [facility] (DEFAULT) [address] [place] [address] Nicotine and Metabolite, Harlan nt LCon 04-20-2020 Cotinine LC <1.0 Invalid Interpretation Code [facility] Comment on above: Result Comment: This test was developed and its performance characteristics determined by [facility]. It has not been cleared or approved by the Food and Drug Administration. Cotinine levels greater than 20.0 are consistent with the use of tobacco or tobacco cessation products. Performed At: [address] [id number] Speedy Rodriguez MD Ph:[phone] Performed By: #### 1 8828873, 9951706871, 8982903527, 6310199041, 28524435, 4311718 #### [facility] (DEFAULT) [address] [place] [address] Nicotine LC <1.0 Invalid Interpretation Code [facility] Comment on above: Result Comment: This test was developed and its performance characteristics determined by [facility]. It has not been cleared or approved by the Food and Drug Administration. Nicotine levels greater than 2.0 are consistent with the use of tobacco or tobacco cessation products. Performed By: #### 1 7728293, 1004181614, 0271880236, 2599731773, 49591551, 9942430 #### [facility] (DEFAULT) [address] [place] [address] 76953 .Auto Diff 1on 04-10-2020 Auto [place] % 8 % Normal 1-12 [facility] Comment on above: Performed By: #### 7 300940, 62357379, 6570527318, 2974527668, 9473607029, 12194713 #### [facility] (DEFAULT) [address] [place] [address] 79002 Baso Abs# 0.0 x10 Normal 0.0-0.2 [facility] Comment on above: Performed By: #### 7 148937, 24884421, 2189338503, 5387462837, 6830258754, 60917919 #### [facility] (DEFAULT) [address] [place] [address] 91022 Basophils/100 WBC (Bld) 0.6 % Normal 0.2-2.0 [facility] Comment on above: Performed By: #### 7 194802, 67269973, 5550478434, 7237610356, 0300667287, 48968237 #### [facility] (DEFAULT) [address] [place] [address] 44704 Eos Abs# 0.7 x10 High 0.0-0.4 [facility] Comment on above: Performed By: #### 7 112257, 01726207, 6830928686, 5475176552, 8063993122, 02554130 #### [facility] (DEFAULT) [address] [place] [address] 64301 Eosinophils/100 WBC (Bld) 13.1 % High 0.9-4.0 [facility] Comment on above: Performed By: #### 7 770934, 27269283, 8896974619, 8347509035, 6461705940, 83078404 #### [facility] (DEFAULT) [address] [place] [address] 10267 Lymph Abs# 1.8 x10 Normal 1.3-2.9 [facility] Comment on above: Performed By: #### 7 390158, 36234605, 7820039652, 1949035005, 8572300195, 57052810 #### [facility] (DEFAULT) [address] [place] [address] 80361 Lymphocytes/100 WBC (Bld) 33 % Normal 14-48 [facility] Comment on above: Performed By: #### 7 854639, 42623706, 1004092489, 4584529970, 9439286323, 12439463 #### [facility] (DEFAULT) [address] [place] [address] [place] Abs# 0.4 x10 Normal 0.0-0.8 [facility] Comment on above: Performed By: #### 7 555330, 02081253, 2068370971, 7536944833, 8354827768, 46620065 #### [facility] (DEFAULT) [address] [place] [address] Neut Abs# 2.4 x10 Normal 1.5-9.2 [facility] Comment on above: Performed By: #### 7 353697, 64771254, 5928316188, 1773985345, 6077277891, 96931987 #### [facility] (DEFAULT) [address] [place] [address] Neutrophils/100 WBC (Bld) 45 % Normal 44-88 [facility] Comment on above: Performed By: #### 7 763748, 60321198, 8924623714, 6422040822, 7307329659, 25482892 #### [facility] (DEFAULT) [address] [place] [address] CBC w/ Auto Diffon Erythrocyte distribution width (RBC) [Ratio] 13.4 % Normal 11.5-15.0 [facility] Comment on above: Performed By: #### 7 172214, 16673389, 7939982687, 0280343135, 9972824295, 12700845 #### [facility] (DEFAULT) [address] [place] [address] Hematocrit (Bld) [Volume fraction] 38.4 % Normal 33.7-40.4 [facility] Comment on above: Performed By: #### 7 620375, 38887117, 2622901760, 6754887319, 5596936491, 78092386 #### [facility] (DEFAULT) [address] [place] [address] Hemoglobin (Bld) [Mass/Vol] 12.6 g/dL Normal 11.3-15.9 [facility] Comment on above: Performed By: #### 7 697290, 18016272, 0300279109, 7261173456, 3036094083, 92928161 #### [facility] (DEFAULT) [address] [place] [address] 71356 Instr WBC 5.3 x10 Invalid Interpretation Code [facility] Comment on above: Performed By: #### 7 888620, 77687201, 6877600636, 4907413535, 2820881319, 23037463 #### [facility] (DEFAULT) [address] [place] [address] 62466 Man Diff? Auto Normal [facility] Comment on above: Performed By: #### 7 569862, 83582456, 7171129838, 6461341985, 2212115864, 14318976 #### [facility] (DEFAULT) [address] [place] [address] 11350 MCH (RBC) [Entitic mass] 29 pg Normal 24-34 [facility] Comment on above: Performed By: #### 7 132098, 84856477, 5395042801, 0167685033, 7225873779, 38520875 #### [facility] (DEFAULT) [address] [place] [address] 57644 MCHC (RBC) [Mass/Vol] 33 g/dL Normal 26-37 [facility] Comment on above: Performed By: #### 7 151685, 82742764, 3537724132, 9677997943, 5128702834, 80700839 #### [facility] (DEFAULT) [address] [place] [address] 11249 MCV (RBC) [Entitic vol] 89 fL Normal 81-100 [facility] Comment on above: Performed By: #### 7 733097, 13688438, 4676740754, 8965793739, 5167729842, 62534666 #### [facility] (DEFAULT) [address] [place] [address] 18853 Platelet 270 x10 Normal 138-427 [facility] Comment on above: Performed By: #### 7 937187, 64015123, 4012002959, 4402060145, 7630194274, 77683878 #### [facility] (DEFAULT) [address] [place] [address] Platelet mean volume (Bld) [Entitic vol] 10.1 fL Normal 6.3-10.2 [facility] Comment on above: Performed By: #### 7 386937, 24733818, 5988962869, 7915692451, 5282136884, 02615885 #### [facility] (DEFAULT) [address] [place] [address] RBC 4.32 x10 Normal 3.70-5.30 [facility] Comment on above: Performed By: #### 7 026692, 60209301, 7774830668, 7499947317, 3562582956, 10423507 #### [facility] (DEFAULT) [address] [place] [address] WBC 5.3 x10 Normal 3.5-10.5 [facility] Comment on above: Performed By: #### 7 205574, 92952444, 0860889648, 2829762293, 9630010269, 24923889 #### [facility] (DEFAULT) [address] [place] [address] Standard 04-10-2020 eGFR Non AA >60 Invalid Interpretation Code [facility] Comment on above: Performed By: #### 7 036655, 68113717, 8484816319, 4189285516, 1306630666, 81746425 #### [facility] (DEFAULT) [address] [place] [address] eGFR AA >60 Invalid Interpretation Code [facility] Comment on above: Result Comment: Graduate Recruiter roddy Kidney disease could be indicated at eGFRs of less than 60 ml/min/1.73m2. Kidney Failure is indicated at less than 15 ml/min/1.73m2 Performed By: #### 7 316198, 38509917, 7923904945, 8623570425, 0190707209, 30930806 #### [facility] (DEFAULT) [address] [place], [place] [address] Albumin [Mass/Vol] 3.8 g/dL Normal 3.5-5.0 [facility] Comment on above: Performed By: #### 7 235287, 90528343, 5050892978, 4551588987, 2789421801, 22883497 #### [facility] (DEFAULT) [address] [place] [address] Albumin/Globulin [Mass ratio] 1.1 {ratio} Low 1.4-2.6 [facility] Comment on above: Performed By: #### 7 068277, 73622038, 8570036837, 6168047528, 1291981941, 48610443 #### [facility] (DEFAULT) [address] [place] [address] Alk Phos 40 IU/L Normal 32-91 [facility] Comment on above: Performed By: #### 7 850946, 65293758, 1714286995, 4811460975, 9162299300, 50548613 #### [facility] (DEFAULT) [address] [place] [address] ALT [Catalytic activity/Vol] 13.0 U/L Low 14.0-54.0 [facility] Comment on above: Performed By: #### 7 075593, 35205516, 8039464087, 7740669613, 1261145047, 41149424 #### [facility] (DEFAULT) [address] [place] [address] 12324 Anion gap [Moles/Vol] 11.0 mmol/L Normal 5.0-19.0 [facility] Comment on above: Performed By: #### 7 196555, 78121237, 4458336940, 7358764553, 5016252092, 14276056 #### [facility] (DEFAULT) [address] [place] [address] 47611 AST [Catalytic activity/Vol] 19 U/L Normal 15-41 [facility] Comment on above: Performed By: #### 7 264698, 67439179, 9789166968, 1400659338, 4311542732, 74416269 #### [facility] (DEFAULT) [address] [place] [address] 58204 Bili Total 1.1 mg/dL Normal 0.3-1.2 [facility] Comment on above: Performed By: #### 7 109758, 99836244, 8369667302, 6666805194, 6079225680, 68550577 #### [facility] (DEFAULT) [address] [place] [address] 84951 Calcium [Mass/Vol] 9.1 mg/dL Normal 8.9-10.3 [facility] Comment on above: Performed By: #### 7 898481, 28980718, 9885809174, 8339566334, 5013740577, 63544102 #### [facility] (DEFAULT) [address] [place] [address] 78978 Chloride [Moles/Vol] 107 mmol/L Normal 101-111 [facility] Comment on above: Performed By: #### 7 957428, 18484935, 4065829345, 7083377791, 8965427680, 44863226 #### [facility] (DEFAULT) [address] [place] [address] 00099 CO2 [Moles/Vol] 23 mmol/L Normal 21-32 [facility] Comment on above: Performed By: #### 7 598371, 13105820, 4738844035, 5783138397, 8080858473, 93002261 #### [facility] (DEFAULT) [address] [place] [address] 79889 Creatinine [Mass/Vol] 0.75 mg/dL Normal 0.60-1.30 [facility] Comment on above: Performed By: #### 7 790762, 77836862, 3932811692, 2909186578, 6393837801, 27280364 #### [facility] (DEFAULT) [address] [place] [address] 56962 Globulin (S) [Mass/Vol] 3.4 g/dL Normal 1.5-4.3 [facility] Comment on above: Performed By: #### 7 304977, 21719651, 4367817298, 6292874503, 1258148909, 89244663 #### [facility] (DEFAULT) [address] [place] [address] 46722 Glucose [Mass/Vol] 98.0 mg/dL Normal 74.0-118.0 [facility] Comment on above: Performed By: #### 7 680556, 88080075, 9915061939, 3524987760, 7277864962, 52012171 #### [facility] (DEFAULT) [address] [place] [address] 98694 Osmolality 276 mOsm/L Invalid Interpretation Code [facility] Comment on above: Performed By: #### 7 211781, 25914526, 6839833409, 2648712281, 2857836437, 54418474 #### [facility] (DEFAULT) [address] [place] [address] 45786 Potassium [Moles/Vol] 4.0 mmol/L Normal 3.6-5.1 [facility] Comment on above: Performed By: #### 7 717657, 79281289, 4097603678, 3298279086, 0522522858, 48340019 #### [facility] (DEFAULT) [address] [place] [address] 45955 Protein [Mass/Vol] 7.2 g/dL Normal 6.5-8.1 [facility] Comment on above: Performed By: #### 7 091849, 04974902, 6077653244, 5341958123, 3945206662, 79003151 #### [facility] (DEFAULT) [address] [place] [address] 24134 Sodium [Moles/Vol] 137.0 mmol/L Normal 136.0-144 . 0 [facility] Comment on above: Performed By: #### 7 354442, 28525605, 6955342283, 9920204815, 5121303332, 91421898 #### [facility] (DEFAULT) [address] [place] [address] 71247 Urea nitrogen [Mass/Vol] 20 mg/dL Normal 8-26 [facility] Comment on above: Performed By: #### 7 621718, 72541866, 6577277210, 7718996617, 4119694303, 88219717 #### [facility] (DEFAULT) [address] [place] [address] Urea nitrogen/Creatinine [Mass ratio] 27.0 mg/mg High 4.6-16.2 [facility] Comment on above: Performed By: #### 7 222370, 85118024, 5815367843, 3443546253, 2666368516, 17979561 #### [facility] (DEFAULT) [address] [place] [address] HgbA1c Standardon 04-10-2020 .Hb 14.7 Invalid Interpretation Code [facility] Comment on above: Performed By: #### 1 0481056, 1095214785, 9805546693, 3813899590, 77694236, 0233134 #### [facility] (DEFAULT) [address] [place] [address] 38082 .Hgb A1c 0.51 g/dL Invalid Interpretation Code [facility] Comment on above: Performed By: #### 1 7663310, 9185426337, 5081795219, 0878298629, 68757818, 0381448 #### [facility] (DEFAULT) [address] [place] [address] Glucose [Mass/Vol] 106 mg/dL Invalid Interpretation Code [facility] Comment on above: Performed By: #### 1 6714988, 7979459166, 1332070401, 1590236873, 61893254, 3179730 #### [facility] (DEFAULT) [address] [place] [address] HbA1c (Bld) [Mass fraction] 5.3 % Normal 4.6-6.2 [facility] Comment on above: Performed By: #### 1 0790026, 4607060443, 2194821299, 5115022646, 35433517, 2080532 #### [facility] (DEFAULT) [address] [place] [address] 36757 Lipid Panel Standardon 04-10 Cholesterol [Mass/Vol] 162.0 mg/dL Normal 66.0-200.0 [facility] Comment on above: Result Comment: Rosalind rable - Less than 200 mg/dL Borderline high risk - 200-239 mg/dL High risk - 240 mg/dL and over. Performed By: #### 7 127186, 50997373, 2621265532, 2799623513, 4058239590, 49886422 #### [facility] (DEFAULT) [address] [place] [address] 24118 Cholesterol in HDL [Mass/Vol] 64 mg/dL Normal 40-71 [facility] Comment on above: Result Comment: High risk - <40 mg/dL. Performed By: #### 7 756321, 82370508, [id number], [id number], [id number], [id number] #### [facility] (DEFAULT) [address] [place] [address] [id number] Cholesterol in LDL [Mass/Vol] 90 mg/dL Normal 1-100 [facility] Comment on above: Result Comment: Opti mal - Less than 100 mg/dL Borderline high risk - 130-159 mg/dL High risk - 160-189 mg/dL. Performed By: #### [id number], [id number], [id number], [id number] #### [facility] (DEFAULT) [address] [place] [address] [id number] Cholesterol.total/Shelley sterol in HDL [Mass ratio] 2.5 {ratio} Normal 0.0-4.5 [facility] Comment on above: Performed By: #### [id number], [id number], [id number], [id number], [id number] #### [facility] (DEFAULT) [address] [place] [address] [id number] Triglyceride [Mass/Vol] 38.0 mg/dL Normal 0.0-150.0 [facility] Comment on above: Performed By: #### 7 [id number], [id number], [id number], [id number], [id number], [id number] #### [facility] (DEFAULT) [address] [place] [address] [id number] VLDL. 8 mg/dL Normal 5-40 [facility] Comment on above: Performed By: #### [id number] #### [facility] (DEFAULT) [address] [id number] Vital Signs Date Time Vital Sign Value Performing Clinician Facility 10-28-2024 14:48-0400 Body height 162.56 cm Anup Pearl MD Work Phone: [facility] 10-28-2024 14:48-0400 Body mass index (BMI) [Ratio] 22.5 kg/m2 Anup Pearl MD Work Phone: [facility] 10-28-2024 14:48-0400 Body weight 59.53 kg Anup Pearl MD Work Phone: [facility] 10-28-2024 14:48-0400 Diastolic blood pressure 62 mm[Hg] Anup Pearl MD Work Phone: [facility] 10-28-2024 14:48-0400 Heart rate 69 /min Anup Pearl MD Work Phone: [facility] 10-28-2024 14:48-0400 SaO2% (BldA) [Mass fraction] 97 % Anup Pearl MD Work Phone: [facility] 10-28-2024 14:48-0400 Systolic blood pressure 108 mm[Hg] Anup Pearl MD Work Phone: [facility] 07-10-2024 14:58-0500 Body mass index (BMI) [Ratio] 22.34 kg/m2 Triston Marcus DO Work Phone: [facility] 07-10-2024 14:58-0500 Body weight 59.02 kg Triston Marcus DO Work Phone: [facility] 07-10-2024 14:58-0500 Diastolic blood pressure 74 mm[Hg] Triston Marcus DO Work Phone: [facility] 07-10-2024 14:58-0500 Systolic blood pressure 116 mm[Hg] Triston Velazquez DO Work Phone: [facility] 05-06-2024 14:43-0500 Body height 162.56 cm Tess Leahy MD Work Phone: [facility] 05-06-2024 14:43-0500 Body mass index (BMI) [Ratio] 22.5 kg/m2 Tess Leahy MD Work Phone: [facility] 05-06-2024 14:43-0500 Body weight 59.59 kg Tess Leahy MD Work Phone: [facility] 05-06-2024 14:43-0500 Diastolic blood pressure 79 mm[Hg] Tess Leahy MD Work Phone: [facility] 05-06-2024 14:43-0500 Heart rate 55 /min Tess Leahy MD Work Phone: [facility] 05-06-2024 14:43-0500 Systolic blood pressure 121 mm[Hg] Tess Leahy MD Work Phone: [facility] 11-20-2023 15:46-0400 Body height 162.56 cm MD Alis Beth Work Phone: [facility] 11-20-2023 15:46-0400 Body mass index (BMI) [Ratio] 22.7 kg/m2 MD Alis Beth Work Phone: [facility] 11-20-2023 15:46-0400 Body weight 60.04 kg MD Alis Beth Work Phone: [facility] 11-20-2023 15:46-0400 Diastolic blood pressure 72 mm[Hg] MD Alis Beth Work Phone: [facility] 11-20-2023 15:46-0400 Heart rate 54 /min MD Alis Beth Work Phone: [facility] 11-20-2023 15:46-0400 Systolic blood pressure 116 mm[Hg] MD Alis Beth Work Phone: [facility] 08-30-2023 14:03-0400 Blood Pressure Location Anup PEARL [facility] 08-30-2023 14:03-0400 Diastolic blood pressure 78 mm[Hg] Anup PEARL [facility] 08-30-2023 14:03-0400 Heart rate 72 /min Anup PEARL [facility] 08-30-2023 14:03-0400 Respiratory rate 16 /min Anup PEARL [facility] 08-30-2023 14:03-0400 Systolic blood pressure 116 mm[Hg] Anup PEARL [facility] Encounters Encounter Date Encounter Type Care Provider Facility Start: 11-20-2024 End: 11-20-2024 Clinisync Result Encounter Triston Marcus DO Work Phone: [facility] Unsolicited Start: 11-20-2024 End: 11-20-2024 Clinisync Result Encounter Triston Marcus DO Work Phone: [facility] Unsolicited Start: 10-28-2024 End: 10-28-2024 ambulatory Anup Pearl MD Work Phone: [facility] Work Phone: Start: 10-28-2024 End: 10-28-2024 Patient encounter procedure Anup Pearl MD Work Phone: [facility] Physician [facility] Work Phone: Start: 10-23-2024 Non-patient / Non-visit Ni Pearl MD Work Phone: [facility] Physician [facility] Work Phone: Start: 10-02-2024 End: 10-02-2024 ambulatory Anup Pearl Facility:[facility] Start: 10-02-2024 End: 10-02-2024 Departed Referred Anup Pearl MD Work Phone: [facility] Start: 10-02-2024 Non-patient / Non-visit Ni Pearl MD Work Phone: [facility] Work Phone: Start: 10-02-2024 End: 10-02-2024 ambulatory Anup PEARL Facility::[id number] Start: 09-24-2024 End: 09-24-2024 ambulatory Anup [...] 05-06-2024 ambulatory Tess Leahy MD Work Phone: [facility] Work Phone: Start: 05-06-2024 End: 05-06-2024 Patient encounter procedure Tess Leahy MD Work Phone: [facility] Physician [facility] Work Phone: Start: 02-14-2024 End: 02-14-2024 ambulatory MD Tess Leahy Work Phone: [facility] Work Phone: Start: 02-14-2024 End: 02-14-2024 Departed Referred MD Tess Leahy Work Phone: [facility] Start: 02-14-2024 Non-patient / Non-visit Tess Leahy MD Work Phone: [facility] Work Phone: Start: 02-14-2024 End: 02-14-2024 ambulatory Anup Frias [facility] Facility:[id number] Start: 01-30-2024 End: 01-30-2024 ambulatory GUILHERME ROMO Not Available Start: 11-20-2023 Patient encounter status MD Jeremy Beth Work Phone: [facility] Start: 11-20-2023 End: 11-20-2023 ambulatory MD Alis Beth Work Phone: [facility] Work Phone: Start: 11-20-2023 End: 11-20-2023 Encounter for general adult medical examination without abnormal findings MD Alis Beth Work Phone: [facility] Start: 11-20-2023 End: 11-20-2023 Patient encounter procedure MD Alis Beth Work Phone: [facility] Work Phone: Start: 11-14-2023 Non-patient / Non-visit MD Alis Beth Work Phone: [facility] Work Phone: Start: 11-07-2023 Non-patient / Non-visit MD Alis Beth Work Phone: [facility] Physician [facility] Work Phone: Start: 10-11-2023 End: 10-11-2023 ambulatory MD Alis Beth Work Phone: [facility] Work Phone: Start: 10-11-2023 End: 10-11-2023 Departed Referred MD Alis Beth Work Phone: [facility] Start: 10-11-2023 Non-patient / Non-visit MD Alis Beth Work Phone: [facility] Physician [facility] Work Phone: Start: 08-30-2023 End: 08-30-2023 Patient encounter procedure Anup PEARL [facility] Start: 11-11-2022 End: 11-12-[address] STEVE DAS . Facility:[facility] Start: 11-05-2022 Encounter for genera l adult medical examination without abnormal findings DR TESS LEAHY [facility] Start: 11-01-2022 End: 11-02-[address] [...] Phone: Start: 07-10-2024 IGP,APTIMA HPV,AGE GDLN Triston Marcus DO Work Phone: Start: 07-10-2024 Microscopic observation [Identifier] in Cervix by Cyto stain Triston Marcus DO Work Phone: Start: 11-23-2023 Mammography Triston Velazquez DO Work Phone: Start: 06-26-2023 Microscopic observation [Identifier] in Cervix by Cyto stain Triston Velazquez DO Work Phone: Start: 11-02-2016 Colonoscopy Triston Velazquez DO Work Phone: Start: 11-02-2016 Colonoscopy Anup NILL Start: 11-02-2016 Esophagogastroduodenoscopy Anup NILL Start: 01-19-2011 Colonoscopy Anup NILL Start: 01-19-2011 Esophagogastroduodenoscopy Anup NILL section Anup NIL L Cholecystectomy Anup NILL Excision of ganglion of foot Anup NILL Plan of Treatment Date Care Activity Detail Author Start: 07-10-2029 Screening for malignant neoplasm of cervix [facility] Start: 11-02-2026 Screening for malignant neoplasm of colon [facility] Start: 06-26-2026 Screening for malignant neoplasm of cervix [facility] Start: 07-14-2025 End: 07-14-2025 Patient encounter procedure 07/14/2025 2:40 PM EST Office Visit [facility] [address] [place] [address] Triston Velazquez, DO [address] [place] [address] [facility] Start: 11-22-2024 Screening for malignant neoplasm of breast Mammogram [facility] Start: 07-10-2024 End: 07-10-2024 Patient encounter procedure 07/10/2024 2:40 PM EST Office Visit [facility] [address] [place] [address] Triston Velazquez, DO [address] [place] [address] Arrived [facility] Comment on above: Arrived Start: 07-10-2024 End: 09-07-2025 MG Breast - bilateral Screening Bilateral screening mammogram Imaging Routine Breast cancer screening by mammogram Expected: 07/10/2024, Expires: 09/07/2025 [facility] Work Phone: Comment on above: Expected: 07/10/2024 , Expires: 09/07/2025 Start: 02-18-2024 Influenza vaccination Influenza Vacc ine (#1) [facility] Start: 10-28-2001 Screening for malignant neoplasm of cervix HPV/Cotest [facility] Start: 1970 Screening for malignant neoplasm of colon [facility] MR Brain WO contrast [facility] THIN PREP TIS PAP AN D HR HPV DNA THIN PREP TIS PAP AND HR HPV DNA Pathology and Cytology Routine Well woman exam with routine gynecological exam Ordered: 07/10/2024 [facility] Comment on above: Ordered: 07/10/2024 Immunizations Immunization Date Immunization Notes Care Provider Fa cility 04-19-2024 influenza virus vaccine, unspecified formulation Triston Marcusalireza BATES Work Phone: [facility] 03-19-2023 influenza virus vaccine, unspecified formulation Anup PEARL [facility] 05-05-2021 SARS-CoV-2 (COVID-19 ) Ad26 vaccine, recombinant Anup PEARL [facility] [place] Comment on above: Result Comment: 2023: [id number] Payers Date Payer Category Payer Self-pay 2022 [employer] [id number] 2022 Unknown [id number] 1970 Unknown [id number] 1971 Unknown [id number] 1971 Unknown [id number] 1971 Unknown [id number] 1971 Unknown [id number] 1971 Unknown [id number] 1971 Unknown [id number] 1971 Unknown [id number] Unknown [facility] [id number] Unknown [id number] Unknown [id number] Unknown [id number] Social History Date Type Detail Facility Start: 08-30-2023 End: 11-20-2023 Tobacco smoking status Ex-smoker (finding) [facility] Tobacco smoking status Never [facility] Start: 05-31-2023 End: 07-10-2024 Sex Assigned At Female Juni Ashby [facility] Start: 1970 Sex Assigned At Female F [facility] Start: 05-06-2024 End: 10-28-2024 Sex Female (finding) [facility] Start: 05-31-2023 Tobacco smoking stat us NHIS Never smoked tobacco [facility] Start: 06-26-2023 End: 07-10-2024 Alcoholic beverage intake Current drinker of alcohol (finding) [facility] Start: 05-31-2023 End: 07-10-2024 History of Social function [facility] Start: 05-31-2023 Alcohol Comment Occasional alcohol u se [facility] Start: 1970 Sex assigned at Not on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
[2025-01-15 06:30] VITALS: BP 132/76; PULSE 66; TEMP 36.1; O2SAT 99; BMI 22.1
[2025-01-15] MEDS: 0.9 % SODIUM CHLORIDE 500 ML 50 ML IV (06:54)
[2025-01-15 07:32] VITALS: BP 105/61; PULSE 63; O2SAT 98
[2025-01-15 07:48] VITALS: BP 108/53; PULSE 67; O2SAT 98
== END 2025-01-15 08:04 | disposition home or self-care (01) ==
LOC: SURGOUT 06:23
PROVIDERS: PCP Family Medicine; Visit Provider Surgery
PROC: (CPT 00731; principal; 2025-01-15 07:30)
DX: K25.9 Gastric ulcer, unspecified as acute or chronic, without hemorrhage or perforation (principal); R10.13 Epigastric pain; Z90.49 Acquired absence of other specified parts of digestive tract; Z87.891 Personal history of nicotine dependence; K21.9 Gastro-esophageal reflux disease without esophagitis; E03.9 Hypothyroidism, unspecified
CPT/HCPCS: 00731; 43239; 88305; 88342; J2704

== ENCOUNTER 2025-04-15 12:43 | Outpatient (OUT) | payer BC, SELFPAY ==
--- OUTSIDE RECORDS SUMMARY | 2025-04-15 12:46 | XMS_ITS | CCD ---
Author Organization [facility] Care Team Providers Care Aoc Plans Intelligence Officer Name Role Phone PIPPA ., DR WILSON Admitting Unavailabl e KARCHIP ., DR WILSON Consulting Unavailabl e PIPPA ., DR WILSON Attending Unavailklaus e ARMOND, DR ETSS Pickard Primary Care Unavailable JASMEET, DR TYLOR Whitney Consulting Unavailable ARMOND, DR TESS Pickard Consulting Unavailable ARMOND, DR TESS Pickard Attending Unavailable ARMOND, DR TESS Pickard Admitting Unavailable ARMOND, DR TESS Pickard Primary Care Unavailable PIPPA ., DR WILSON Admitting Unavailabl e KARCHIP ., DR WILSON Consulting Unavailabl e KARCHIP ., DR WILSON Attending Unavailklaus e ARMOND, DR TESS Pickard Primary Care Unavailable TESS LEAHY Primary Care Physician MD Alis Beth Primary Care Provider MD Anup Pearl Attending Provider MD Tess Leahy Primary Care Provider MD Anup Pearl Attending Provider Tess Leahy MD Primary Care Provider Anup Pearl MD Attending Provider [phone] Tess Leahy MD Primary Care Provider TRISTON VELAZQUEZ Attending Unavailable GUILHERME ROMO Attending Unavailable Anup Pearl MD Attending Provider Tess Leahy MD Primary Care Provider Anup Pearl MD Attending Provider [phone] Tess Leahy MD Primary Care Provider Tess Leahy MD Attending Provider Tess Leahy Primary Care Unavailable Nill, Anup R Admitting Unavailable Nill, Anup R Attending Unavailable Nill, Anup R Admitting Unavailable Nill, Anup R Attending Unavailable Nill, Anup R Admitting Unavailable Nill, Anup R Attending Unavailable NILL, Anup R Attending Unavailable NILL, Anup R Attending Unavailable NILL, Anup R Attending Unavailable Allergies Allergy ClassificationReported Allergen(s)Allergy TypeDate of OnsetReaction(s) Facility (1 source)No Known Medication Allergies; Translations: [No Known Medication Allergies]Propensity to adverse reactions (disorder)[facility] Medications Current Medications MedicationDrug Class(es)DatesSig (Normalized)Sig (Original)estradiol 0.5 mg oral tablet (3 sources)EstrogenStart: 90-25-3253blsl 1 tablet by mouth once dailyestradiol (Estrace) 0.5 MG tablet Indications: Hormone disorder Take 1 tablet (0.5 mg) by mouth Daily Take 1 tablet by mouth for 30 days 30 tablet 11 08/12/2024 Active Start: 07-10-2024 End: 05-07-4723trki 1 tablet by mouth once dailyestradiol (Estrace) 0.5 MG tablet Indications: Hot flashes Take 1 tablet (0.5 mg) by mouth Daily Take 1 tablet by mouth for 30 days 30 tablet 11 07/10/2024 07/10/2024 Discontinued (Ineffective)estrogens, conjugated (alf) 0.3 mg oral tablet (4 sources)EstrogenStart: 07-10-2024 End: 20-70-3978fele 1 tablet by mouth once daily, then take 1 tablet by mouth once dailyestrogens, conjugated, (Premarin) 0.3 MG tablet Indications: Hot flashes Take 1 tablet (0.3 mg) by mouth Daily Take 1 tablet daily by mouth for 30 days 30 tablet 3 07/10/2024 Activelevothyroxine sodium 0.1 mg oral tablet (19 sources)l-ThyroxineStart: 75-74-7639hxyb 1 tablet by mouth once daily in the morningStart: 01-09-2024 End: 58-59-0541xpuv 1 tablet by mouth once daily in the morningLevothyroxine 88 mcg tablet Discontinued 0 .ROUTE .COMPLEX 90 November 04, 2024 12:27pm Jennifer 20th, 2025 12:06pm TAKE 1 TABLET BY MOUTH IN THE MORNING ON AN EMPTY STOMACH ONCE DAILYStart: 11-07-2023 End: 24-21-6800vhys 1 capsule by mouth once dailyLevothyroxine 88 mcg capsule Discontinued 88 MCG PO Daily November 07, 2023 12:00am January 09, 2024 10:41am Start: 27-96-7273dcln 1 tablet by mouth once dailySynthroid 88 mcg Tab 88 mcg = 1 tab(s), Oral, Daily, Refills(s) 0 Start Date: 08/30/23 Status: OrderedStart: 27-47-7289lqov 1 tablet by mouth once daily in the morninglevothyroxine (Synthroid, Levoxyl) 88 MCG tablet TAKE ONE TABLET BY MOUTH IN THE MORNING ON AN EMPTY STOMACH ONCE DAILY 02/13/2023 ActiveMulti Vitamins oral tablet (1 source)Start: 00-18-6558ztzb 1 tablet by mouth once dailyMulti Vitamins oral tablet 1 tab(s), Oral, Daily, Refill(s) 0 Start Date: 08/30/23 Status: Ordered pantoprazole 40 mg delayed release oral tablet (12 sources)Proton Pump InhibitorStart: 05-41-2832mvme 1 tablet by mouth once dailyProtonix 20 mg Tab-DR 20 mg = 1 tab(s), Oral, Daily, Refills(s) 0 Start Date: 08/30/23 Status: OrderedStart: 63-63-1804yiqt 1 tablet by mouth twice daily sucralfate 1000 mg oral tablet (11 sources)Aluminum ComplexStart: 37-38-0364xxgi 1 tablet by mouth once before mealtimesucralfate (Carafate) 1 g tablet Take by mouth 4 (four) times a day before meals Active Completed/Discontinued Medications MedicationDrug Class(es)DatesSig (Normalized)Sig (Original)amoxicillin 875 mg / clavulanate 125 mg oral tablet (3 sources)Penicillin-class AntibacterialStart: 05-15-2024 End: 69-89-3318zzcx 1 tablet by mouth twice dailyAmoxicillin-Pot Clavulanate 875-125 mg tablet Discontinued 1 TAB PO Twice daily May 15, 2024 1:00am October 28, 2024 2:56pm Problems Active Problems Problem ClassificationProblemDateDocumented DateEpisodic/ChronicAbdominal pain (2 sources)Epigastric pain; Translations: [Epigastric pain]Onset: 08-30-2023 EpisodicAdministrative/social admission (5 sources)Memory finding; Translations: [Person with feared health complaint in whom no diagnosis is made]85-00-7215EzklqolpJfsegavj reactions (3 sources)Contact dermatitis; Translations: [Unspecified contact dermatitis, unspecified cause]34-31-7517BxpmpmkiXplyhxmafqbpbd and diverticulitis (1 source)Diverticular ouiccsa41-00-6622SevlzugJdaanvgmxy disorders (2 sources)Gastroesophageal reflux disease without esophagitis; Translations: [Gastro-esophageal reflux disease without esophagitis]Onset: 17-79-2412Gxgvnwl Gastroduodenal ulcer (except hemorrhage) (2 sources)H/O: peptic ulcer; Translations: [Personal history of peptic ulcer disease]Onset: 71-10-9731UblkylwvKsvtiglj; including migraine (5 sources)Headache; Translations: [Headache]61-14-4605CduojxgcMihmq gastrointestinal disorders (1 source)History of ccxamzwfe62-01-8187ZjkytrimDtfdl screening for suspected conditions (not mental disorders or infectious disease) (10 sources)Encounter for screening mammogram for malignant neoplasm of breast; Translations: [Encounter for screening for malignant neoplasm of cervix]Onset: 08-29-3186GuwqakszPwnhw upper respiratory disease (2 sources)Allergic rhinitis; Translations: [Allergic rhinitis, unspecified] 39-86-0083McajhieHvoitzco codes; unclassified (1 source)Family history of malignant neoplasm of breast; Translations: [FAMILY HX MALIG NEOPLASM OF BREAST]Onset: 16-14-9871XqptqjsuDzzjdwah codes; unclassified (1 source)Family history of malignant neoplasm of digestive organs; Translations: [FAM HX MALIG NEOPLASM DIGESTIV ORGN]Onset: 38-51-3383Mlsrvwal Residual codes; unclassified (2 sources)Flushing; Translations: [Flushing]04-98-1075AxhkjzwqSgitnyp disorders (10 sources)Hypothyroidism; Translations: [Hypothyroidism, unspecified]Onset: 366992-88-7144UodruazCagcefgmcxnd (1 source)Body mass index 20-24 - hepyma69-92-8812 Past or Other Problems Problem ClassificationProblemDateDocumented DateEpisodic/ChronicImmunizations and screening for infectious disease (1 source)Encounter for screening for human papillomavirus (HPV); Translations: [ENC SCREENING HUMAN PAPILLOMAVIRUS]Onset: 00-62-4963Ceaoydrt Results Test NameValueInterpretationReference RangeFacilityReminderson 03-27-2025 RemindersReminders From: Taryn Acuna LPN To: [facility] - Clinical; Sent: 01/24/2025 15:43:28 EDT Show up: 03/26/2025 07:00:00 EDT Subject: EGD recall Due Date/Time: 04/17/2025 07:00:00 EDT Reminder/Recall Patient due for EGD 04/17/2025 to monitor gastric ulcer. Left voice mail message to call back to discuss. [facility] Specimen: [id number] Received: 01/15/25 Status: KATIE Quinn Num: [id number] Spec Type: Surgical Subm Dr: Anup Pearl MD FACS Tissues: A Gastric Biopsy (ANTRAL ULCER BX) B Gastric Biopsy (GASTRIC BODY BX) Procedures: HE/4, Gross/Micro L4/2, H PYLORI/2, IHC First AB/2 Age/ Patient Sex Location Account Attending Physician Ioana Marie 54/F LABE[facility] [id number] Anup Pearl MD FACS SPEC NUM: [id number] RECD: 01/15/25 STATUS: KATIE QUINN NUM: [id number] CARYN: 01/15/25 [facility] DR: Anup Pearl MD FACS ENTERED: 01/15/[address]: Prerna Lee SPEC TYPE: Surgical DEPT: JEFRY TRUONG ENTERED BY: [id number] RECV BY: [id number] ORDERED: HE/4, Gross/Micro L4/2, H PYLORI/2, IHC First AB/2 ORDERED: HE/4, Gross/Micro L4/2, H PYLORI/2, IHC First AB/2 Pathological Diagnosis A. Stomach, ulcer, biopsy: - Antral-type gastric mucosa with ulceration. - No Helicobacter pylori microorganisms identified with immunohistochemical stain. B. Stomach, body, biopsy: - Antral-type gastric mucosa with reactive gastropathy and mild chronic inactive gastritis. - No Helicobacter pylori microorganisms identified with immunohistochemical stain. Clinical Information Antral ulcer Gross Description Part A is received in formalin labeled with the patients name, date of , and antral ulcer BX are two powell-loza, focally erythematous, friable, 0.2 cm each in greatest dimension tissue bits. The specimen is entirely submitted in a single cassette. (1, ns, [id number] A) JG Part B is received in formalin labeled with the patients name, date of , and gastric body BX are two powell-loza, focally erythematous, friable, 0.3 cm each in greatest dimension tissue bits. The specimen is entirely submitted in a single cassette. (1, ns, [id number] B) JG Specimen: [id number] Received: 01/15/25 Status: KATIE Quinn Num: [id number] Spec Type: Surgical Subm Dr: Anup Pearl MD FACS Tissues: A Gastric Biopsy (ANTRAL ULCER BX) B Gastric Biopsy (GASTRIC BODY BX) Procedures: HE/4, Gross/Micro L4/2, H PYLORI/2, IHC First AB/2 Patient: Ioana Marie [id number] (Continued) Specimen: [id number] Received: 01/15/25 (Continued) Signed (signature on file) Micah Sahni MD 01/17/25 1406 Specimen: [id number] Received: 01/15/25 Status: KATIE Quinn Num: [id number] Spec Type: Surgical Subm Dr: Anup Pearl MD FACS Tissues: A Gastric Biopsy (ANTRAL ULCER BX) B Gastric Biopsy (GASTRIC BODY BX) Procedures: HE/4, Gross/Micro L4/2, H PYLORI/2, IHC First AB/2 Patient: Allegra Mariefer [id number] (Continued) Specimen: [id number] Received: 01/15/25 (Continued) Microscopic Description A B: Microscopic examination is performed. CPT Codes 37275 x2, 46642 x2 Specimen: [id number] Received: 01/15/25 Status: KATIE Quinn Num: [id number] Spec Type: Surgical Subm Dr: Anup Pearl MD FACS Tissues: A Gastric Biopsy (ANTRAL ULCER BX) B Gastric Biopsy (GASTRIC BODY BX) Procedures: HE/4, Gross/Micro L4/2, H PYLORI/2, IHC First AB/2 Patient: Ioana Marie [id number] (Continued) Signed (signature on file) Micah Sahni MD 01/17/25 1406Normal [facility] 54-83-1828IogvnhmyiBbdtrqfzz From: Taryn Acuna LPN To: JENI - Clinical; Sent: 10/11/2024 08:23:07 EDT Show up: 12/17/2024 07:00:00 EDT Subject: EGD recall Due Date/Time: 01/01/2025 07:00:00 EDT Reminder/Recall Patient due for EGD 01/01/2025 for history of gastric ulcer. Discussed with patient. She request to have EGD scheduled for January 15. H&P will be updated attime of surgery unless insurance requires visit prior for precet. From: Taryn Acuna LPN (N - Clinical) To: Wen Chaudhary; Sent: 12/18/2024 07:56:39 EDT Show up: 12/18/2024 07:56:00 EDT Subject: RE: EGD recall pt is scheduled for 01/15/25 for egd , [facility] Auto (Bld) [#/Vol]Ordered By: Tess Leahy on 12-04-2024 Basophils (Bld) [#/Vol]0.1 10 3/uL0.0-0.1FSelect Medical OhioHealth Rehabilitation Hospital Basophils/100 WBC Auto (Bld)Ordered By: Tess Leahy on 68-57-7963Jusbslwkj/100 WBC (Bld)0.9 %0.2-2.0[facility] HospitalEosinophils/100 WBC Auto (Bld)Ordered By: Tess Leahy on 31-35-3704Kdrbyjqaghc/100 WBC (Bld)13.4 %High 0.9-7.0[facility] HospitalErythrocyte distribution width Auto (RBC) [Ratio]Ordered By: Tess Leahy on 34-71-7531Rttcztyacoe distribution width (RBC) [Ratio]12.0 %11.0-15.0[facility] HospitalEstimated glomerular filtration rate (GFR) non- AmericanOrdered By: Tess Leahy on 15-84-4523XSX/1.73 sq M.predicted among non-blacks MDRD (S/P/Bld) [Vol rate/Area]mL/min/{1.73_m2}>=60 mL/min/1.73m 2FSelect Medical [facility]Health Rehabilitation Hospital Globulin Calc (S) [Mass/Vol]Ordered By: Tess Leahy on 86-61-2561Mxvvjzic (S) [Mass/Vol]3.1 g/dLAvita Health System Ontario HospitalGlucose mean value [Mass/volume] in Blood Estimated from glycated hemoglobinOrdered By: Tess Leahy on 51-92-4849Ufuwlfi glucose Estimated from glycated hemoglobin (Bld) [Mass/Vol]103 mg/dLAvita Health System Ontario HospitalHematocrit Auto (Bld) [Volume fraction]Ordered By: Tess Leahy on 68-95-3660Xvaasnpmeg (Bld) [Volume fraction]39.8 %36.0-48.0[facility] HospitalHemoglobin A1c percentageOrdered By: Tess Leahy on 97-24-3154JtQ6m (Bld) [Mass fraction]5.2 % 4.5-6.2FSelect Medical OhioHealth Rehabilitation HospitalComment on above:ADA RECOMMENDED LIMIT 4.0 - 6.0ADA THERAPEUTIC TARGET < 7.0ACTION SUGGESTED> 7.0Hemoglobin [Mass/volume] in BloodOrdered By: Tess Leahy on 76-10-0982Xpucqlnwiu (Bld) [Mass/Vol]13.7 g/dL12.0-16.0[facility] HospitalLaboratory - Chemistry and Chemistry - challengeOrdered By: Tess Leahy on 28-96-1698Rmzqyms [Mass/Vol]3.5 g/dL3.4-5.0[facility] HospitalALP [Catalytic activity/Vol]50 U/A14-786ZsyndmtshAvita Health System Ontario HospitalALT [Catalytic activity/Vol]24 U/I72-03MjudpjbwsAvita Health System Ontario HospitalAST [Catalytic activity/Vol]20 U/M02-34ThpqhnczvAvita Health System Ontario HospitalBilirubin [Mass/Vol]0.8 mg/dL0.2-1.0[facility] HospitalCalcium [Mass/Vol]9.2 mg/dL 8.5-10.1FSelect Medical OhioHealth Rehabilitation HospitalChloride [Moles/Vol]103 mmol/L98-107 [facility] HospitalCO2 [Moles/Vol]30.1 mmol/L21.0-32.0[facility] HospitalCreatinine [Mass/Vol]0.63 mg/dL0.55-1.02[facility] HospitalFree T4 [Mass/Vol]1.01 ng/dL0.76-1.46[facility] HospitalGFR/1.73 sq M.predicted MDRD (S/P/Bld) [Vol rate/Area] mL/min/{1.73_m2}>=60 mL/min/1.73m 2FSelect Medical OhioHealth Rehabilitation HospitalGlucose [Mass/Vol]98 mg/wQ51-432SfbmdttrmAvita Health System Ontario HospitalPotassium [Moles/Vol] 4.1 mmol/L3.5-5.1FSelect Medical OhioHealth Rehabilitation HospitalProtein [Mass/Vol]6.6 g/dL 6.4-8.2FPeoples Hospitalodium [Moles/Vol]140 mmol/V111-315 [facility] HospitalTSH Qn5.042 m[IU]/LHigh0.358-3.740[facility] HospitalUrea nitrogen [Mass/Vol]19.0 mg/dLHigh7.0-18.0[facility] HospitalUrea nitrogen/Creatinine [Mass ratio]30.2 mg/mgAvita Health System Ontario HospitalLaboratory - Hematology and Cell countsOrdered By: Tess Leahy on 63-31-0942Spdxmpit granulocytes/100 WBC (Bld)0.3 %0.0-0.5FSelect Medical OhioHealth Rehabilitation HospitalLeukocytes [#/volume] corrected for nucleated erythrocytes in Blood by Automated counOrdered By: Tess Leahy on 54-81-4669MEP corrected for nucl RBC Auto (Bld) [#/Vol]5.8 10 3/uL4.0-11.0[facility] HospitalLymphocytes Auto (Bld) [#/Vol]Ordered By: Tess Leahy on 72-56-8219Edefmokytzb (Bld) [#/Vol]1.5 10 3/uL1.2-3.8[facility] HospitalLymphocytes/100 WBC Auto (Bld)Ordered By: Tess Leahy on 12-04-2024 Lymphocytes/100 WBC (Bld)25.6 %20.5-60.0[facility] HospitalMCH Auto (RBC) [Entitic mass]Ordered By: Tess Leahy on 27-95-5666NIO (RBC) [Entitic mass]32.6 pg26.7-34.0[facility] HospitalMCHC Auto (RBC) [Mass/Vol]Ordered By: Tess Leahy on 92-40-3840PANU (RBC) [Mass/Vol]34.4 g/dL 29.9-35.2FSelect Medical OhioHealth Rehabilitation HospitalMCV Auto (RBC) [Entitic vol]Ordered By: Tess Leahy on 35-18-5058HGW (RBC) [Entitic vol]94.8 fL81.0-99.0[facility] HospitalMonocytes Auto (Bld) [#/Vol]Ordered By: Tess Leahy on 19-79-5581Ovblpyqpm (Bld) [#/Vol]0.4 10 3/uL0.3-0.8[facility] HospitalMonocytes/100 WBC Auto (Bld)Ordered By: Tess Leahy on 12-04-2024 Monocytes/100 WBC (Bld)7.5 %1.7-12.0[facility] HospitalNeutrophils Auto (Bld) [#/Vol]Ordered By: Tess Leahy on 99-75-9351Mwjxmgcdgjg (Bld) [#/Vol]3.0 10 3/uL1.4-6.5FSelect Medical OhioHealth Rehabilitation HospitalNeutrophils/100 WBC Auto (Bld)Ordered By: Tess Leahy on 58-28-7322Zkozyszsajh/100 WBC (Bld)52.3 % 43.0-75.0[facility] HospitalNo Panel InformationOrdered By: Tess Leahy on 57-00-2895Yqyepmlphvq # (Auto)0.8 10 3/uLHigh0.0-0.7FSelect Medical OhioHealth Rehabilitation HospitalImmature Granulocyte # (Auto)0.02 10 3/uL0.00-0.03[facility] HospitalPlatelet mean volume Auto (Bld) [Entitic vol]Ordered By: Tess Leahy on 64-99-9625Yvawrkzo mean volume (Bld) [Entitic vol]9.4 fLLow 9.5-13.5FSelect Medical OhioHealth Rehabilitation HospitalPlatelets Auto (Bld) [#/Vol]Ordered By: Tess Leahy on 24-82-1711Epulwuvww (Bld) [#/Vol]264 10 3/qC665-378QekwukqobAvita Health System Ontario HospitalRBC Auto (Bld) [#/Vol]Ordered By: Tess Leahy on 45-24-3559IKI (Bld) [#/Vol]4.20 10 6/uL4.20-5.40[facility] Private Hospitalerum or plasma albumin/globulin mass ratioOrdered By: Tess Leahy on 20-61-5870Yxbtxae/Globulin [Mass ratio]1.1 {ratio}[facility] Hospitalerum or plasma anion gap determinationOrdered By: Tess Leahy on 47-54-2020Cwkgg gap [Moles/Vol]11.0 mmol/LFSelect Medical OhioHealth Rehabilitation HospitalMM TOMOSYNTHESIS SCREENING BIon 05-74-33[place]ynB[place], [place] [address] Mammography Report Signed Patient: IOANA MARIE MR#: [id number] : 1970 Acct:[id number] Age/Sex: 54 / F ADM Date: 11/20/24 Loc: MAMMO Attending Dr: Triston Velazquez D.O. Ordering Physician: Triston Velazquez D.O. Results: Date of Service: 11/20/24 Follow Up: Procedure(s): MM tomosynthesis screening BI Accession Number(s): [id number] cc: Tess Leahy M.D.; Triston Velazquez D.O. Patient Name: IOANA MARIE MR#: [id number] : 1970 Exam Date: 11/20/2024 Ordering Doctor: [...] breast cancer at age 69. LOCATION: [facility] BREAST COMPOSITION: The breasts are extremely [...] Signed By: 11/20/24 1255 DD/ 1254 TD/TT: Volleyball Assistant Coach:TBHRadiology, Radiologist, - 11/20/2024 [place] [address] Mammography Report Signed Patient: IOANA MARIE MR#: [id number] : 1970 Acct:[id number] Age/Sex: 54 / F ADM Date: 11/20/24 Loc: MAMMO Attending Dr: Triston Velazquez D.O. Ordering Physician: Triston Velazquez D.O. Results: Date of Service: 11/20/24 Follow Up: Procedure(s): MM tomosynthesis screening BI Accession Number(s): [id number] cc: Tess Leahy M.D.; Triston Velazquez D.O. Patient Name: IOANA MARIE MR#: [id number] : 1970 Exam Date: 11/20/2024 Ordering Doctor: [...] breast cancer at age 69. LOCATION: [facility] BREAST COMPOSITION: The breasts are extremely [...] Signed By: 11/20/24 1255 DD/ 1254 TD/TT: Volleyball Assistant Coach: KIMBERLY [facility]itrick HospitalRadiology Study observation (narrative)[facility] TOMOSYNTHESIS SCREENING BIOrdered By: Radiologist Radiology on 85-20-7831HWGOLakeland Regional Hospital Work Phone: Laboratory - Chemistry and Chemistry - challengeon 56-64-0284Widasdm [Mass/Vol]9.1 mg/dL8.5-10.1FSelect Medical OhioHealth Rehabilitation HospitalNo Panel InformationOrdered By: Anup Pearl on 05-19-5581Tbzpqndqcyyhy Pathology TestSee commentAvita Health System Ontario HospitalComment on above:See report. Scanned copy available in EMR.Pathology Request for Lab Corpon 10-02-2024 Pathology Request for Lab CorpHCA Florida Memorial Hospital Physician GroupComment on above:Order Comment: GI SPECIMENResult Comment: See report. Scanned copy available in EMR. PERFORMED BY: [place] [address] PATHOLOGIST SUPERVISOR EPOXY FABRICATION VIKI OLIVEROS M.D.Performed By: #### PATH TO [facility] #### [place] [id number] USAAmbulatory Visit Summaryon 67-32-7818Dyoghrdyvj Visit SummaryAmbulatory Visit Summary IOANA MARIE :1970 Visit Date:09/24/2024 [...] Four times a day (before meals and atbedtime) Allergies No Known Allergies No Known Medication [...] you for choosing us for your care. NormalFirsthealther [facility]view Medical CenterIGP,APTIMA HPV,AGE GDLNon 85-70-4161YGY GDLN ACOG TESTINGNoteADRIÁNS HealthcareComment on above:TESTS RESULT FLAG UNITS REF RANGE LAB Clinician Provided Cytology Information Source.............Cervix;Endocervix No. of containers..01 ThinPrep Vial Age Algo ACOG [place]... FLAG LEGEND: L-Low Normal,H-High Normal,LL-Alert Low,HH-Alert High <-Panic Low,>-Panic High,A-Abnormal,AA-Critical Abnormal Performed at: 01 =[address] [place] [address] Lilo Ferrer MD, HPV APTIMANegativeNegativeNOMS HealthcareComment on above:This nucleic acid amplification test detects fourteen high- risk HPV types (16,18,31,33,35,39,45,51,52,56,58,59,66,68) without differentiation. Performed at: =[address] [id number] Ratoprinter: Lilo Ferrer MD, Phone: [phone] Performed at: [address] [id number] Ratoprinter: Lilo Ferrer MD, Phone: [phone] IGP, APTIMA HPV, RFX 16/18,45Note.NOMS HealthcareComment on above:TESTS RESULT FLAG UNITS REF RANGE LAB DIAGNOSIS: 02 NEGATIVE FOR INTRAEPITHELIAL LESION OR MALIGNANCY. Specimen adequacy: 02 Satisfactory for evaluation. Endocervical and/or squamous metaplastic cells (endocervical component) are present. Performed by: 02 Vy Pantoja, Mailing Clerk . 02 Note: Note 02 The Pap [...] Low,>-Panic High,A-Abnormal,AA-Critical Abnormal Performed at: [address] [address] Lilo Ferrer MD, BRUSH-SPATULA CERVIX ENDOCERVIX CLINISYNCNOMS HealthcareBasophils Auto (Bld) [#/Vol]on 05-01-8782Boknwlpvq (Bld) [#/Vol]Automated basophil count0.0-0.1FSelect Medical OhioHealth Rehabilitation Hospital Basophils/100 WBC Auto (Bld)on 68-47-7664Biceisdeo/100 WBC (Bld)Automated basophil %0.2-2.0[facility] HospitalEosinophils/100 WBC Auto (Bld) on 35-52-8039Mhnzxfakziz/100 WBC (Bld)Automated eosinophil %High0.9-7.0[facility] HospitalErythrocyte distribution width Auto (RBC) [Ratio]on 26-13-5223Mwhfcgiagzt distribution width (RBC) [Ratio]Erythrocyte distribution width [Ratio] by Automated count11.0-15.0[facility] HospitalHCG ( test) IA.rapid Ql (U)on 42-29-4719GFZ ( test) Ql (U)Urine human chorionic gonadotropin (hCG) detection by immunoassayNEGATIVEAvita Health System Ontario HospitalHematocrit Auto (Bld) [Volume fraction]on 02-14-2024 Hematocrit (Bld) [Volume fraction]Hematocrit [Volume Fraction] of Blood by Automated count36.0-48.0[facility] HospitalHemoglobin [Mass/volume] in Bloodon 03-94-0485Tsvrjxyqyk (Bld) [Mass/Vol]Hemoglobin [Mass/volume] in Blood12.0-16.0[facility] HospitalLon 02-14-2024L Specimen: [id number] Received: 02/15/24 Status: KATIE [facility] Num: [id number] Spec Type: Surgical Subm Dr: Anup Pearl MD FACS Tissues: A Esophagus Biopsy (ANTRAL ULCER BX) Procedures: HE/2, Gross/Micro L4 Age/ Patient Sex Location Account Attending Physician Ioana Marie 53/F LABELL [id number] Anup Pearl MD FACS SPEC NUM: [id number] RECD: 02/15/24 STATUS: [facility] NUM: [id number] CARYN: 02/14/[address]: Anup Pearl MD FACS ENTERED: 02/15/[address]: Rosa,Lab SPEC TYPE: Surgical DEPT: JEFRY TRUONG ENTERED BY: [id number] RECV BY: [id number] ORDERED: HE/2, Gross/Micro L4 ORDERED: HE/2, Gross/Micro [...] is entirely submitted in cassette A1. Specimen: [id number] Received: 02/15/24 Status: KATIE Quinn Num: [id number] Spec Type: Surgical Subm Dr: Anup Pearl MD FACS Tissues: A Esophagus Biopsy (ANTRAL ULCER BX) Procedures: /2, Gross/Micro L4 Patient: AníbalmaryIoana [id number] (Continued) Specimen: [id number] Received: 02/15/24 (Continued) Signed (signature on file) Samantha Hirsch MD 02/23/24 0923 Specimen: [id number] Received: 02/15/24 Status: KATIE Quinn Num: [id number] Spec Type: Surgical Subm Dr: Anup Pearl MD FACS Tissues: A Esophagus Biopsy (ANTRAL ULCER BX) Procedures: HE/Jennifer, Gross/Micro L4 Patient: Ioana Marie [id number] (Continued) Specimen: [id number] Received: 02/15/24 (Continued) Microscopic Description Microscopic examinations are performed supporting the above interpretation CPT Codes 22675 Specimen: [id number] Received: 02/15/24 Status: KATIE Enriquezzaira Num: [id number] Spec Type: Surgical Subm Dr: Anup Pearl MD FACS Tissues: A Esophagus Biopsy (ANTRAL ULCER BX) Procedures: Kehinde BALCK/Timothy L4 Patient: Ioana Marie [id number] (Continued) Signed (signature on file) Samantha Hirsch MD 02/23/24 0923[facility] - Hematology and Cell countson 76-66-5787Fvdnqviw granulocytes/100 WBC (Bld)0.2 %0.0-0.5FSelect Medical OhioHealth Rehabilitation HospitalLeukocytes [#/volume] corrected for nucleated erythrocytes in Blood by Automated counon 45-95-3749GDU corrected for nucl RBC Auto (Bld) [#/Vol]Leukocytes [#/volume] corrected for nucleated erythrocytes in Blood by Automated coun4.0-11.0[facility] HospitalLymphocytes Auto (Bld) [#/Vol]on 93-65-3304Dsjmioosrnk (Bld) [#/Vol]Lymphocytes [#/volume] in Blood by Automated count1.2-3.8[facility] HospitalLymphocytes/100 WBC Auto (Bld)on 75-18-3539Tsnwvtzdnoq/100 WBC (Bld)Lymphocytes/100 leukocytes in Blood by Automated count20.5-60.0[facility] HospitalH Auto (RBC) [Entitic mass]on 16-91-2310ZVH (RBC) [Entitic mass]MCH [Entitic mass] by Automated count26.7-34.0[facility] HospitalMCHC Auto (RBC) [Mass/Vol]on 14-73-1280FDOW (RBC) [Mass/Vol]MCHC [Mass/volume] by Automated count29.9-35.2FSelect Medical OhioHealth Rehabilitation HospitalMCV Auto (RBC) [Entitic vol]on 15-58-5202PHL (RBC) [Entitic vol]MCV [Entitic volume] by Automated count 81.0-99.0[facility] HospitalMonocytes Auto (Bld) [#/Vol]on 41-15-7142Gtoeuooxa (Bld) [#/Vol]Automated blood monocyte count0.3-0.8[facility] HospitalMonocytes/100 WBC Auto (Bld)on 33-66-2025Jleznjxct/100 WBC (Bld)Automated monocyte %1.7-12.0[facility] Neutrophils Auto (Bld) [#/Vol]on 53-79-5407Ydfewwhavrc (Bld) [#/Vol]Neutrophils [#/volume] in Blood by Automated count1.4-6.5FSelect Medical OhioHealth Rehabilitation Hospital Neutrophils/100 WBC Auto (Bld)on 17-24-6866Lcowkimaiao/100 WBC (Bld)Automated neutrophil %Low43.0-75.0[facility] HospitalNo Panel Informationon 12-20-7019Ilgqlgfntyp # (Auto)1.2 10 3/uLHigh0.0-0.7FSelect Medical OhioHealth Rehabilitation HospitalImmature Granulocyte # (Auto)0.01 10 3/uL0.00-0.03[facility] HospitalPlatelet mean volume Auto (Bld) [Entitic vol]on 96-28-7278Yvjjdnje mean volume (Bld) [Entitic vol]Platelet mean volume [Entitic volume] in Blood by Automated count9.5-13.5FSelect Medical OhioHealth Rehabilitation HospitalPlatelets Auto (Bld) [#/Vol]on 39-42-5548Bfgikjgoj (Bld) [#/Vol]Platelets [#/volume] in Blood by Automated -557HsueszwhvAvita Health System Ontario HospitalRBC Auto (Bld) [#/Vol]on 38-08-0653SGN (Bld) [#/Vol]Erythrocytes [#/volume] in Blood by Automated count 4.20-5.40[facility] HospitalBasophils Auto (Bld) [#/Vol]on 72-31-4376Vcecgneno (Bld) [#/Vol]0.1 10 3/uL0.0-0.1FSelect Medical OhioHealth Rehabilitation HospitalBasophils/100 WBC Auto (Bld)on 36-15-9365Smqzvtmkr/100 WBC (Bld)0.8 % 0.2-2.0[facility] HospitalCholesterol in LDL Calc [Mass/Vol]on 44-53-0434Csdngwopcgd in LDL [Mass/Vol]88.0 mg/dLAvita Health System Ontario HospitalComment on above:<100 mg/dl LGWVUAA264-543 mg/dl NEAR OR ABOVE TSIZLBA741- 159 mg/dl BORDERLINE IVOT341-176 mg/dl HIGH>190 mg/dl VERY HIGHCholesterol in VLDL Calc [Mass/Vol]on 21-10-1311Xqolcthepxa in VLDL [Mass/Vol]10.2 mg/dL [facility] HospitalEosinophils/100 WBC Auto (Bld)on 11-14-2023 Eosinophils/100 WBC (Bld)11.7 %0.9-7.0[facility] Erythrocyte distribution width Auto (RBC) [Ratio]on 45-68-8391Ishryspzbpw distribution width (RBC) [Ratio]12.0 %11.0-15.0[facility] Estimated glomerular filtration rate (GFR) non- Americanon 11-14-2023 GFR/1.73 sq M.predicted among non-blacks MDRD (S/P/Bld) [Vol rate/Area] mL/min/{1.73_m2}>=60[facility] HospitalGlobulin Calc (S) [Mass/Vol]on 71-20-7953Sfgrkfhv (S) [Mass/Vol]3.4 g/dLAvita Health System Ontario HospitalHematocrit Auto (Bld) [Volume fraction]on 29-51-6410Mkzxiqbgtw (Bld) [Volume fraction]39.6 %36.0-48.0[facility] HospitalHemoglobin [Mass/volume] in Bloodon 87-66-8728Ygudaslmbo (Bld) [Mass/Vol]13.2 g/dL12.0-16.0 [facility] HospitalLaboratory - Chemistry and Chemistry - challengeon 00-29-7765Yytnpzp [Mass/Vol]3.4 g/dL3.4-5.0[facility] HospitalALP [Catalytic activity/Vol]51 U/N36-686QmsutcooeAvita Health System Ontario HospitalALT [Catalytic activity/Vol]16 U/M03-29EafqakdhsAvita Health System [facility] Hospital AST [Catalytic activity/Vol]21 U/Y77-05BfxixgvccAvita Health System [facility] Hospital Bilirubin [Mass/Vol]1.1 mg/dL0.2-1.0[facility] HospitalCalcium [Mass/Vol]8.7 mg/dL8.5-10.1FSelect Medical OhioHealth Rehabilitation HospitalChloride [Moles/Vol] 103 mmol/T48-154AktxhjuwcAvita Health System Ontario HospitalCholesterol [Mass/Vol]177 mg/dL <=200[facility] HospitalCholesterol in HDL [Mass/Vol]79 mg/dL40-60 [facility] HospitalComment on above:> or =60 mg/dl - LOW CARDIOVASCULAR RISK<40 mg/dl - HIGH CARDIOVASCULAR RISKCO2 [Moles/Vol]27.1 mmol/L21.0-32.0[facility] HospitalCreatinine [Mass/Vol]0.81 mg/dL 0.55-1.02[facility] HospitalGFR/1.73 sq M.predicted MDRD (S/P/Bld) [Vol rate/Area]mL/min/{1.73_m2}>=60[facility] HospitalGlucose [Mass/Vol]92 mg/zE09-422QgbmzdyjfAvita Health System Ontario HospitalPotassium [Moles/Vol] 4.4 mmol/L3.5-5.1FSelect Medical OhioHealth Rehabilitation HospitalProtein [Mass/Vol]6.8 g/dL 6.4-8.2FPeoples Hospitalodium [Moles/Vol]137 mmol/M631-760 [facility] HospitalTriglyceride [Mass/Vol]51 mg/dL<=150[facility] HospitalUrea nitrogen [Mass/Vol]21.0 mg/dL7.0-18.0[facility] HospitalUrea nitrogen/Creatinine [Mass ratio]25.9 mg/mgAvita Health System Ontario HospitalLaboratory - Hematology and Cell countson 11-14-2023 Immature granulocytes/100 WBC (Bld)0.2 %0.0-0.5FSelect Medical OhioHealth Rehabilitation Hospital Leukocytes [#/volume] corrected for nucleated erythrocytes in Blood by Automated counon 05-46-6187PYF corrected for nucl RBC Auto (Bld) [#/Vol]8.4 10 3/uL 4.0-11.0[facility] HospitalLymphocytes Auto (Bld) [#/Vol]on 24-87-2914Qoumunubfzp (Bld) [#/Vol]1.7 10 3/uL1.2-3.8[facility] HospitalLymphocytes/100 WBC Auto (Bld)on 19-19-3124Vmwbeffcqcc/100 WBC (Bld)20.5 % 20.5-60.0[facility] HospitalMCH Auto (RBC) [Entitic mass]on 95-16-7542LWA (RBC) [Entitic mass]31.7 pg26.7-34.0[facility] HospitalMCHC Auto (RBC) [Mass/Vol]on 67-72-0970MUDH (RBC) [Mass/Vol]33.3 g/dL 29.9-35.2FSelect Medical OhioHealth Rehabilitation HospitalMCV Auto (RBC) [Entitic vol]on 88-63-6732DYQ (RBC) [Entitic vol]95.2 fL81.0-99.0[facility] HospitalMonocytes Auto (Bld) [#/Vol]on 35-41-2875Rqonqnnsg (Bld) [#/Vol]0.5 10 3/uL0.3-0.8[facility] HospitalMonocytes/100 WBC Auto (Bld)on 84-41-6348Jrvumdqfg/100 WBC (Bld)5.5 %1.7-12.0[facility] Neutrophils Auto (Bld) [#/Vol]on 46-44-1350Zhnhwtjgblw (Bld) [#/Vol]5.2 10 3/uL 1.4-6.5FSelect Medical OhioHealth Rehabilitation HospitalNeutrophils/100 WBC Auto (Bld)on 47-77-8077Lhfqggntdij/100 WBC (Bld)61.3 %43.0-75.0[facility] HospitalNo Panel Informationon 68-62-7665Brufahwjxem # (Auto)1.0 10 3/uL0.0-0.7 [facility] HospitalImmature Granulocyte # (Auto)0.02 10 3/uL 0.00-0.03[facility] HospitalPlatelet mean volume Auto (Bld) [Entitic vol]on 30-94-7000Snibqsgt mean volume (Bld) [Entitic vol]10.3 fL 9.5-13.5FSelect Medical OhioHealth Rehabilitation HospitalPlatelets Auto (Bld) [#/Vol]on 54-43-9094Ffqbmqfml (Bld) [#/Vol]235 10 3/dH193-265DhopqzvksAvita Health System Ontario HospitalRBC Auto (Bld) [#/Vol]on 55-85-7081RGA (Bld) [#/Vol]4.16 10 6/uL4.20-5.40 [facility] Hospitalerum or plasma albumin/globulin mass ratioon 03-69-1924Umqiujn/Globulin [Mass ratio]1.0 {ratio}[facility] Hospitalerum or plasma anion gap determinationon 86-52-4791Cuhzi gap [Moles/Vol] 11.3 mmol/LFPeoples Hospitalerum or plasma total cholesterol/high density lipoprotein (HDL) cholesterol mass abdirashid 11-14-2023 Cholesterol.total/Cholesterol in HDL [Mass ratio]2.2 {ratio}[facility] HospitalComment on above:3.3 - 4.4 LOW RISK4.4 - 7.1 AVERAGE RISK7.1 - 11.0 MODERATE RISK>11.0 HIGH RISKGlucose mean value [Mass/volume] in Blood Estimated from glycated hemoglobinon 83-91-3904Glkqefc glucose Estimated from glycated hemoglobin (Bld) [Mass/Vol]105 mg/dLAvita Health System [facility] Hospital Laboratory - Chemistry and Chemistry - challengeon 31-71-9810Skjanrgu [Mass/Vol] 35.0 ng/mL8.0-252.0[facility] HospitalFree T4 [Mass/Vol]0.96 ng/dL 0.76-1.46[facility] HospitalGlucose [Mass/Vol]88 mg/wI85-089 [facility] HospitalT4 [Mass/Vol]7.70 ug/dL4.80-13.90[facility] HospitalTS Qn2.126 m[IU]/L0.358-3.740[facility] HospitalLaboratory - Hematology and Cell countson 39-97-6960EjI2f (Bld) [Mass fraction]5.3 %4.5-6.2FSelect Medical OhioHealth Rehabilitation HospitalComment on above:ADA RECOMMENDED LIMIT 4.0 - 6.0ADA THERAPEUTIC TARGET < 7.0ACTION SUGGESTED> 7.0No Panel Informationon 85-89-564791176619-Qwhonoi Vitamin D Total29.1 ng/mLAvita Health System Ontario HospitalComment on above:<20 ng/mL Vit D oxqcdxvws39-<30 ng/mL Vit D gzxyrowfuvuq70-886 ng/mL Vit D sufficient>100 ng/mL Potential Toxicity C-Peptide1.4 ng/mL1.1-4.4FSelect Medical OhioHealth Rehabilitation HospitalComment on above:C- Peptide reference interval is for fasting patients.C-Peptide reference interval is for fasting patients.Dehydroepiandrosterone Uhpsose35.4 ug/dL41.2-243.7 [facility] HospitalFree Cortisol, Dialysis, LCMS0.524 ug/dL. [facility] HospitalComment on above:These tests were developed and their performancecharacteristics determined by [facility]. They have not beencleared or approved by the Food and Drug Administration.Reference Range:8 AM 0.10 - 1.204 PM 0.042 - 0.872Performed at: [facility] [address], [place] [id number] Director: Shiv Padron MD, Phone: [phone] Triiodothyronine2.33 pg/mL2.18-3.98[facility] HospitalReverse Triiodothyronine (T3)16.0 ng/dL9.2-24.1FSelect Medical OhioHealth Rehabilitation HospitalComment on above:This test was developed and its performance characteristicsdetermined by Health: [facility]. It has not been cleared orapproved by the Food and Drug Administration.Performed at: [facility] [employer] [id number] Director: Jennifer Ruff MD, Phone: [phone] Hormone Binding Zljyxzzn046.0 nmol/L17.3-125.0[facility] HospitalComment on above:Performed at: [facility] [id number] Director: Mark Gallardo PhD, Phone: [phone] Performed at: [facility] [id number] Director: Mark Gallardo PhD, Phone: [phone] Level15 ng/dL4-50 [facility] Hospitalerotonin (P) [Mass/Vol]on 52-21-1894Xqztvdrxk 170 ng/iK00-091JxabcqcjsAvita Health System Ontario HospitalComment on above:This test was developed and its performance characteristicsdetermined by Health: [facility]. It has not been cleared orapproved by the Food and Drug Administration.Performed at: [address] [id number] Director: Jenniefr Ruff MD, Phone: [phone] test was developed and its performance characteristicsdetermined by Health: [employer]. It has not been cleared orapproved by the Food and Drug Administration.Performed at: [address] [id number] Director: Jennifer Ruff MD, Phone: [phone] estrone measurementon 52-09-9591R1 [Mass/Vol]106 pg/mL.[facility] HospitalComment on above:Range Adult (Premenopausal) 27 - 231 Menstrual Cycle (1-10 days) 19 - 149 Menstrual Cycle (11-20 days) 32 - 176 Menstrual Cycle (21-30 days) 37 - 200 Adult (Postmenopausal) 0 - 125Performed at: [address] [id number] Director: Jennifer Ruff MD, Phone: [phone] or plasma estradiol (E2) measurement (mass/volume)on 15-73-2922A3 [Mass/Vol]238.0 pg/mL.[facility] HospitalComment on above:Adult Female Range Follicular phase 12.5 - 166.0 Ovulation phase 85.8 - 498.0 Luteal phase 43.8 - 211.0 Postmenopausal <6.0 - 54.7 1st trimester 215.0 - >4300.0Roche ECLIA methodologySerum or plasma insulin measurement (units/volume)on 13-09-5527Hilqbxs Qn3.5 u[iU]/mL 2.6-24.9[facility] HospitalComment on above:Performed at: [address] [id number] Director: Mark Gallardo PhD, Phone: [phone] or plasma progesterone measurement (mass/volume)on 68-24-7868Leatwgiyfcts [Mass/Vol]0.5 ng/mL.[facility] HospitalComment on above:Follicular phase 0.1 - 0.9 Luteal phase 1.8 - 23.9 Ovulation phase 0.1 - 12.0 First trimester 11.0 - 44.3 Second trimester 25.4 - 83.3 Third trimester 58.7 - 214.0 Postmenopausal 0.0 - 0.1TPO Ab Qnon 71-47-4654Ezvdlii Peroxidase Ywnttntwib166 [IU]/mL0-34[facility] HospitalTestosterone Free [Mass/Vol]on 36-59-9904Jyvq Testosterone0.8 pg/mL0.0-4.2FSelect Medical OhioHealth Rehabilitation HospitalComment on above:Performed at: [facility] [employer] [facility] [employer] [id number] Director: Mark Gallardo PhD, Phone: [phone] at: [address] [id number] Director: Jennifer Ruff MD, Phone: [phone] at: [facility] [employer] [facility] [employer] [id number] Director: Mark Gallardo PhD, Phone: [phone] at: [address] [id number] Director: Jennifer Ruff MD, Phone: [phone] Ab [facility] 97-69-4351Vctz- Thyroglobulin Heoczqzb756.8 [IU]/mL0.0-0.9[facility] Comment on above:Thyroglobulin Antibody measured by [employer] NetworksMethodologyIt should be noted that the presence of thyroglobulinantibodies may not be pathogenic nor diagnostic, especiallyat very low levels. The assay farm manager has found thatfour percent of individuals without evidence of thyroiddisease or autoimmunity will have positive TgAb levels upto 4 IU/mL.Performed at: [facility] [employer] [id number] Director: Mark Gallardo PhD, Phone: [phone] Antibody measured by ApsalarMethodologyIt should be noted that the presence of thyroglobulinantibodies may not be pathogenic nor diagnostic, especiallyat very low levels. The assay farm manager has found thatfour percent of individuals without evidence of thyroiddisease or autoimmunity will have positive TgAb levels upto 4 IU/mL.Performed at: [facility] [employer] [facility] [employer], [place] [id number] Director: Mark Gallardo PhD, Phone: [phone] Antibody measured by ApsalarMethodologyIt should be noted that the presence of thyroglobulinantibodies may not be pathogenic nor diagnostic, especiallyat very low levels. The assay farm manager has found thatfour percent of individuals without evidence of thyroiddisease or autoimmunity will have positive TgAb levels upto 4 IU/mL.Performed at: [facility] [id number] Director: Mark Gallardo PhD, Phone: [phone] Thyroglobulin [Mass/volume] in Serum or Plasmaon 84-34-1480Fapikupvpyotn [Mass/Vol]9.4 ng/mL.[facility] HospitalComment on above:This test was developed and its performance characteristicsdetermined by Health: [employer]. It has not been cleared or approvedby the Food and Drug Administration.Reference Range:Pubertal Childrenand Adults: <40According to the National Academy of Clinical Biochemistry,the reference interval for Thyroglobulin (TG) should berelated to euthyroid patients and not for patients whounderwent thyroidectomy. TGreference intervals for thesepatients depend on the residual mass of the thyroid tissueleft after surgery. Establishing a post-operative baselineis recommended. The assay quantitation limit is 2.0 ng/mL.Performed at: [facility] [facility], [place] [id number] Director: Samy Padron MD, Phone: [phone] ( test) IA.rapid Ql (U)on 95-64-1358COS ( test) Ql (U)NegativeNEGATIVEAvita Health System Ontario HospitalMG MAMM SCREEN 3D CHRISTAL CADon 40-75-3571DM MAMM SCREEN 3D CHRISTAL CADPatient: IOANA MARIE Exam Date: 11/11/2022 : 1970 Gender:F Ordering : DR TRISTON VELAZQUEZ . Admission #: [id number] Family : Order #: [id number] CLICK HERE TO VIEW EXAM RADIOLOGY REPORT [...] breast cancer at age 69. LOCATION: [facility] BREAST COMPOSITION: Extremely dense, which lowers [...] by: Tylor Andrade MD on 11/11/2022 at 13:58NormalThKettering Health Main Campus AUTO DIFFon 55-45-5337VGGQ #0.1 103/ulNormal0.0-0.1Mer[facility] HealthComment on above:Performed By: #### CBC #### [facility] [address] [place] [address] Dr. Hickey ChangBasophils/100 WBC (Bld)1.0 %Normal0.2-2.0The [facility] Comment on above:Performed By: #### CBC #### [facility] [address] [address] [address] Edelmira Jerez #1.0 103/ulCritically high0.0-0.7The [facility] HospitalComment on above:Performed By: #### CBC #### [facility] [address] [address] [address] Edelmira Lauosinophils/100 WBC (Bld)13.9 %Critically high0.9-7.0The [facility] HospitalComment on above:Performed By: #### CBC #### [facility] [address] [place] [address] Dr. Edelmira Laurythrocyte distribution width (RBC) [Ratio]12.2 %Fivjxh40.0-15.0 The [facility] HospitalComment on above:Performed By: #### CBC #### [facility] [address] [place] [address] Dr. Edelmira HirschHematocrit (Bld) [Volume fraction]40.5 %Wqdfrm95.0-48.0The [facility] HospitalComment on above:Performed By: #### CBC #### [facility] [address] [place] [address] Dr. Edelmira HirschHemoglobin (Bld) [Mass/Vol]13.8 g/qYQkhikx98.0-16.0The [facility] HospitalComment on above:Performed By: #### CBC #### [facility] [address] [place] [address] Dr. Edelmira Almeida #0.02 10e3/ulNormal0.00-0.03The [facility] HospitalComment on above:Performed By: #### CBC #### [facility] [address] [place] [address] Dr. Edelmira Almeida %0.3 %Normal0.0-0.5The [facility] on above: Performed By: #### CBC #### [facility] [address] [place] [address] Dr. Edelmira RockMPH #1.8 103/ulNormal1.2-3.8The [facility] HospitalComment on above:Performed By: #### CBC #### [facility] [address] [place] [address] Dr. Edelmira Rockmphocytes/100 WBC (Bld)24.6 %Lsfjir32.5-60.0The [facility] HospitalComformerly [facility] on above:Performed By: #### CBC #### [facility] [address] [place] [address] Dr. Edelmira HirschMANUAL DIFF REQNONormalThe [facility] HospitalComment on above: Performed By: #### CBC #### [facility] [address] [address] [address] Edelmira Mcmahon (RBC) [Entitic mass]32.2 ywCyzgae29.7-34.0The [facility] HospitalComment on above:Performed By: #### CBC #### [facility] [address] [place] [address] Dr. Edelmira Mcmahon (RBC) [Mass/Vol]34.1 g/rMUycsvt38.9-35.2The [facility] HospitalComment on above:Performed By: #### CBC #### [facility] [address] [place] [address] Dr. Edelmira Mcmahon (RBC) [Entitic vol]94.6 iOWxctzo65.0-99.0The [facility] HospitalComment on above:Performed By: #### CBC #### [facility] [address] [place] [address] Dr. Edelmira Beckford #0.5 103/ulNormal0.3-0.8The [facility] HospitalComment on above:Performed By: #### CBC #### [facility] [address] [place] [address] Dr. Edelmira Cuellarocytes/100 WBC (Bld)6.5 %Normal1.7-12.0The [facility] on above:Performed By: #### CBC #### [facility] [address] [place] [address] Dr. Edelmira Haq #3.8 103/ulNormal1.4-6.5The [facility] HospitalComment on above:Performed By: #### CBC #### [facility] [address] [place] [address] Dr. Edelmira Paceutrophils/100 WBC (Bld)53.7 %Xitmxw54.0-75.0The [facility] HospitalComment on above:Performed By: #### CBC #### [facility] [address] [place] [address] Dr. Edelmira Holbrook mean volume (Bld) [Entitic vol]10.0 fLNormal9.5-13.5The [facility] on above:Performed By: #### CBC #### [facility] [address] [place] [address] Dr. Edelmira HirschPLT276 103/fdJxxsgq319-862Vyz [facility] on above: Performed By: #### CBC #### [facility] [address] [place] [address] Dr. Edelmira HirschRBC4.28 106/ulNormal4.20-5.40The [facility] on above:Performed By: #### CBC #### [facility] [address] [place] [address] Dr. Edelmira HirschWBC7.1 103/ulNormal4.0-11.0The [facility] on above: Performed By: #### CBC #### [facility] [address] [place] [address] Dr. Edelmira HirschGLYCOHEMOGLOBIN A1Con 00-98-8308VXT RECOMMENDATIONSEE [facility] HospitalComformerly [facility] on above:Result Comment: ADA RECOMMENDED LIMIT 4.0 - 6.0 ADA THERAPEUTIC TARGET < 7.0 ACTION SUGGESTED > 7.0Performed By: #### A1C #### [facility] [address] [place] [address] Dr. Edelmira HirschGlucose [Mass/Vol]100 mg/dLNoSalem Regional Medical Center on above:Performed By: #### A1C #### [facility] [address] [place] [address] Dr. Edelmira HirschHbA1c (Bld) [Mass fraction]5.1 %Normal4.5-6.2The [facility] on above:Performed By: #### A1C #### [facility] [address] [place] [address] Dr. Edelmira HirschLIPID PROFILEon 71-70-1846LLVE-HDL RATIO NORMSEE [facility] on above:Result Comment: 3.3 - 4.4 LOW RISK 4.4 - 7.1 AVERAGE RISK 7.1 - 11.0 MODERATE RISK >11.0 HIGH RISKPerformed By: #### LIPID, CMP, TSH #### [facility] [address] [address] [address] Edelmira HirschCholesterol [Mass/Vol]164 mg/dLNormal<=200[facility] Comment on above:Performed By: #### LIPID, CMP, TSH #### [facility] [address] [place] [address] Dr. Edelmira HirschCholesterol in HDL [Mass/Vol]80 mg/dLCritically tcuc50-83Xqy [facility] HospitalComment on above:Performed By: #### LIPID, CMP, TSH #### [facility] [address] [place] [address] Dr. Edelmira HirschCholesterol in LDL [Mass/Vol]76.8 mg/dLProMedica Fostoria Community HospitalComment on above:Performed By: #### LIPID, CMP, TSH #### [facility] [facility] [address] [place] [address] Dr. Edelmira Forrestesterivan.total/Cholesterol in HDL [Mass ratio]2.1 {ratio} NormalMercy HealthComment on above:Performed By: #### LIPID, CMP, TSH #### [facility] [address] [place] [address] Dr. Edelmira Trivedi NORMAL> or = 60 mg/dl - LOW CARDIOVASCULAR RISK <40 mg/dl - HIGH CARDIOVASCULAR RISKProMedica Fostoria Community HospitalComment on above:Performed By: #### LIPID, CMP, TSH #### [facility] [address] [place] [address] Dr. Edelmira HirschLDL CALC NORMALSEE BELOWProMedica Fostoria Community HospitalComment on above:Result Comment: <100 mg/dl OPTIMAL 100 - 129 mg/dl NEAR OR ABOVE OPTIMAL 130 - 159 mg/dl BORDERLINE HIGH 160 - 189 mg/dl HIGH >190 mg/dl VERY HIGH Performed By: #### LIPID, CMP, TSH #### [facility] [address] [place] [address] Dr. Edelmira HirschTriglyceride [Mass/Vol]36 mg/dLNormal<=150[facility] Comment on above:Performed By: #### LIPID, CMP, TSH #### [facility] [address] [address] [address] Edelmira WinLDL CALC7.2 mg/dLNormalThe [facility] HospitalComment on above: Performed By: #### LIPID, CMP, TSH #### [facility] [address] [address] [address] Edelmira HirschPROF 14(COMP METB)on 00-02-1720Cpiikva [Mass/Vol]3.5 g/dLNormal 3.4-5.0The [facility] HospitalComment on above:Performed By: #### LIPID, CMP, TSH #### [facility] [address] [address] [address] Edelmira HirschAlbumin/Globulin [Mass ratio]0.9 {ratio}NormalThe [facility] HospitalComment on above:Performed By: #### LIPID, CMP, TSH #### [facility] [address] [place] [address] Dr. Edelmira Phoenix [Catalytic activity/Vol]51 U/RMgtcmr88-299Dsc [facility] HospitalComment on above:Performed By: #### LIPID, CMP, TSH #### [facility] [address] [place] [address] Dr. Edelmira Beckman [Catalytic activity/Vol]23 U/QQqfrfp73-25Rrg White Hospitalment on above:Performed By: #### LIPID, CMP, TSH #### [facility] [address] [address] [address] Edelmira Quinones gap [Moles/Vol]11.2 mmol/LNormalThe [facility] on above:Performed By: #### LIPID, CMP, TSH #### [facility] [address] [place] [address] Dr. Edelmira Campos [Catalytic activity/Vol]18 U/BMnnawu40-18Bnw [facility] HospitalComment on above:Performed By: #### LIPID, CMP, TSH #### [facility] [address] [address] [address] Edelmira HirschBilirubin [Mass/Vol]0.9 mg/dLNormal0.2-1.0The [facility] Comment on above:Performed By: #### LIPID, CMP, TSH #### [facility] [address] [place] [address] Dr. Edelmira HirschCalcium [Mass/Vol]9.4 mg/dLNormal8.5-10.1The [facility] Comment on above:Performed By: #### LIPID, CMP, TSH #### [facility] [address] [place] [address] Dr. Edelmira HirschChloride [Moles/Vol]104 mmol/YTnntxm90-324Ffe [facility] Comment on above:Performed By: #### LIPID, CMP, TSH #### [facility] [address] [place] [address] Dr. Edelmira HirschCO2 [Moles/Vol]29.5 mmol/NLoiizl88.0-32.0The [facility] Comment on above:Performed By: #### LIPID, CMP, TSH #### [facility] [address] [place] [address] Dr. Edelmira HirschCreatinine [Mass/Vol]0.86 mg/dLNormal0.55-1.02The [facility] HospitalComment on above:Performed By: #### LIPID, CMP, TSH #### [facility] [address] [place] [address] Dr. Edelmira LauGFR-AF BELGIAN>60Normal>=60The [facility] HospitalComment on above:Performed By: #### LIPID, CMP, TSH #### [facility] [address] [place] [address] Dr. Edelmira LauGFR-NON AF BELGIAN>60Normal>=60The [facility] HospitalComment on above:Performed By: #### LIPID, CMP, TSH #### [facility] [address] [place] [address] Dr. Edelmira HirschGlobulin (S) [Mass/Vol]3.7 g/dLNormalThe [facility] HospitalComment on above:Performed By: #### LIPID, CMP, TSH #### [facility] [address] [place] [address] Dr. Edelmira HirschGlucose [Mass/Vol]97 mg/cTZgbpoq56-491Qyb [facility] Comment on above:Performed By: #### LIPID, CMP, TSH #### [facility] [address] [address] [address] Edelmira HirschPotassium [Moles/Vol]4.7 mmol/LNormal3.5-5.1The [facility] Comment on above:Performed By: #### LIPID, CMP, TSH #### [facility] [address] [place] [address] Dr. Edelmira HirschProtein [Mass/Vol]7.2 g/dLNormal6.4-8.2The [facility] Comment on above:Performed By: #### LIPID, CMP, TSH #### [facility] [address] [place] [address] Dr. Edelmira HirschSodium [Moles/Vol]140 mmol/JFusclv321-365Gzr [facility] Comment on above:Performed By: #### LIPID, CMP, TSH #### [facility] [address] [place] [address] Dr. Edelmira HirschUrea nitrogen [Mass/Vol]14.0 mg/dLNormal7.0-18.0The [facility] HospitalComment on above:Performed By: #### LIPID, CMP, TSH #### [facility] [address] [place] [address] Dr. Edelmira HirschUrea nitrogen/Creatinine [Mass ratio]16.3 mg/mgNormalThe [facility] HospitalComment on above:Performed By: #### LIPID, CMP, TSH #### [facility] [address] [place] [address] Dr. Edelmira Conrad 45-19-6762IEE1.540 uIU/mLNormal0.358-3.740The [facility] HospitalComment on above:Performed By: #### LIPID, CMP, TSH #### [facility] [address] [place] [address] Dr. Edelmira Bashir ACOG PANEL 2: 30 to 65on 06-27-2022..NormalThe [facility] on above:Result Comment: Performed at: WBPerformed By: #### [id number] #### [facility] [address] [place] [address] Dr. Edelmira Sanders Gdln ACOG Ermfpyi30-01KwyzudIjkSalem Regional [facility] on above:Performed By: #### [id number] #### [facility] [address] [place] [address] Dr. Edelmira HirschDIAGNOSIS:CommentBethesda North Hospital on above: Result Comment: NEGATIVE FOR INTRAEPITHELIAL LESION OR MALIGNANCY. Performed at: WBPerformed By: #### [id number] #### [facility] [address] [place] [address] Dr. Edelmira Altamirano AptimaNegativeNormalNegativePremier Health [facility] on above:Result Comment: This nucleic acid amplification test detects fourteen high-risk HPV types (16,18,31,33,35,39,45,51,52,56,58,59,66,68) without differentiation. Performed at: =GPerformed By: #### [id number] #### [facility] [address] [place] [address] Dr. Edelmira Altamirano Genotype ReflexCommentBethesda North Hospital on above:Result Comment: Criteria not met, HPV Genotype not performed. Performed at: WBPerformed By: #### [id number] #### [facility] [address] [place] [address] Dr. Edelmira HirschMethodology:CommentBethesda North Hospital on above: Result Comment: This liquid based ThinPrep(R) pap test was screened with the use of an image guided system. Performed at: WBPerformed By: #### [id number] #### [facility] [address] [place] [address] Dr. Edelmira HirschNote:CommentBethesda North Hospital on above:Result Comment: The Pap smear is a screening test designed to aid in the detection of premalignant and malignant conditions of the uterine cervix. It is not a diagnostic procedure and should not be used as the sole means of detecting cervical cancer. Both false-positive and false-negative reports do occur. . Performed at: WBPerformed By: #### [id number] #### [facility] [address] [place] [address] Dr. Edelmira HirschPerformed by:CommentBethesda North Hospital on above: Result Comment: Meghan Andrade, Mailing Clerk (ASCP) Performed at: WBPerformed By: #### [id number] #### [facility] [address] [place] [address] Dr. Edelmira HirschSpecimen adequacy:CommentBethesda North Hospital on above:Result Comment: Satisfactory for evaluation. Endocervical and/or squamous metaplastic cells (endocervical component) are present. Performed at: WBPerformed By: #### [id number] #### [address] [place] [address] Dr[address] Edelmira Lind and Metabolite, Quant LCon 15-69-7835Ehfaxfzp LC<1.0 Invalid [facility] on above:Result Comment: This test was developed and its performance characteristics determined by [facility]. It has not been cleared or approved by the Food and Drug Administration. Cotinine levels greater than 20.0 are consistent with the use of tobacco or tobacco cessation products. Performed At: [address] [id number] Speedy Rodriguez MD Ph:[phone] By: #### [id number], [id number], [id number], 3715389088, 93378670, 0931990 #### [facility] (DEFAULT) [address], [place] [address]Imlehbgq LC<1.0Invalid [facility] on above:Result Comment: This test was developed and its performance characteristics determined by [facility]. It has not been cleared or approved by the Food and Drug Administration. Nicotine levels greater than 2.0 are consistent with the use of tobacco or tobacco cessation products.Performed By: #### [id number], [id number], 7361663431, 8835276286, 28707279, 5082254 #### [facility] (DEFAULT) [address] [place] [address].Auto Diff 1on 58-18-9442Ncml [place] %7 %Normal1-12[facility] HospitalComment on above:Performed By: #### [id number], [id number], 2162448950, 0544456286, 39646883, 4688998 #### [facility] (DEFAULT) [address] [place] [address] 37589Qdfm Abs#0.0 i44Hyyyhk0.0-0.2[facility] HospitalComment on above:Performed By: #### [id number], 6016817172, 4578762167, 6253235817, 54163640, 0803550 #### [facility] (DEFAULT) [address] [place] [address] 82155Vsrnneptf/100 WBC (Bld)0.4 %Normal0.2-2.0[facility] Hospital Comment on above:Performed By: #### [id number], [id number], 5140283142, 7931700623, 68572343, 9244818 #### [facility] (DEFAULT) [address] [place] [address] 23406Ueu Abs#1.0 o95Mqfi8.0-0.4[facility] HospitalComment on above:Performed By: #### 34397777, 2495296895, 5685095542, 5655660938, 46102655, 0064742 #### [facility] (DEFAULT) [address] [place] [address] 51345Ktjdipaiqrc/100 WBC (Bld)13.5 %High0.9-4.0[facility] HospitalComment on above:Performed By: #### [id number], 4530241489, 0921780503, 2105036841, 44717069, 8581447 #### [facility] (DEFAULT) [address] [place] [address] 54236Lijdl Abs#2.1 m71Vznxce0.3-2.9[facility] HospitalComment on above:Performed By: #### 32328890, 0817168803, 1159498841, 9818737639, 19086022, 3585303 #### [facility] (DEFAULT) [address] [place] [address] 62735Pvhuubbsiua/100 WBC (Bld)29 %Upgilf67-39Qjeyjexk Hospital Comment on above:Performed By: #### [id number], 3916230359, 1806864402, 3534407866, 96464855, 0989543 #### [facility] (DEFAULT) [address] [place] [address] 72616Rnvc Abs#0.5 e30Ydoxfl6.0-0.8[facility] HospitalComment on above:Performed By: #### [id number], 3213381082, 4431094748, 8301778865, 07004039, 8588688 #### [facility] (DEFAULT) [address] [place] [address] 74461Uptm Abs#3.5 b15Gqihag9.5-9.2Magrwvumedicine [facility] HospitalComment on above:Performed By: #### [id number], 3036103627, 5558195315, 0351931775, 50710632, 9309697 #### [facility] (DEFAULT) [address] [place] [address] 77976Bhyylaqcusp/100 WBC (Bld)50 %Qfesxb13-52Yzatkufb Hospital Comment on above:Performed By: #### [id number], 0016176576, 8193225991, 0203243526, 67511387, 7321274 #### [facility] (DEFAULT) [address] [place] [address] 07134VIG w/ Auto Diffon 81-53-1057Jcfmaztjwnd distribution width (RBC) [Ratio]13.2 %Vckppk50.5-15.0[facility] HospitalComment on above: Performed By: #### [id number], 3004194341, 1537749881, 5401983435, 34988154, 9105066 #### [facility]DEFAULT[facility] [address] [place] [address] 81641Jsefnsbsjz (Bld) [Volume fraction]38.4 %Psfeab84.7-40.4 [facility] HospitalComment on above:Performed By: #### 13448716, 6290768754, 8751829232, 0112862698, 72426309, 3917131 #### [facility] (DEFAULT) [address] [place] [address] 61765Fqzswgahey (Bld) [Mass/Vol]12.4 g/fONwvtlv34.3-15.9 [facility] HospitalComment on above:Performed By: #### [id number], 6347592201, 6070641431, 2130583160, 96475389, 1593516 #### [facility] (DEFAULT) [address] [place], [place] [address]Instr WBC7.1 f35Oltojbh Interpretation CodeMiami Valley HospitalComment on above:Performed By: #### 81292835, 6763250647, 3666827978, 5147584062, 57352387, 2414954 #### [facility] (DEFAULT) [address] [place] [address] 99906Lgc Diff?AutoNormalMiami Valley HospitalComment on above: Performed By: #### 23237516, 1407122281, 6276038176, 1560363856, 84819619, 1875235 #### [facility] (DEFAULT) [address] [place] [address] 05298NGE (RBC) [Entitic mass]30 tpIfzqws82-59Rwzgifye Hospital Comment on above:Performed By: #### 53776937, 6209307138, 9212647094, 6391974926, 09104062, 7003382 #### [facility] (DEFAULT) [address] [place] [address] 36601EIRU (RBC) [Mass/Vol]32 g/xXCzmyxd91-92Sblvnaps Hospital Comment on above:Performed By: #### 45889530, 1032942538, 3691175958, 9970678111, 70190261, 3292607 #### [facility] (DEFAULT) [address] [place] [address] 84512HOR (RBC) [Entitic vol]94 iJShofzx68-835Wzxejzil Hospital Comment on above:Performed By: #### 88808902, 6564600260, 6959920260, 1200538931, 27795122, 4713900 #### [facility] (DEFAULT) [address] [place] [address] 97029Txbmmpej114 b40Ymwxfy052-428Ukxxadiy HospitalComment on above:Performed By: #### 38372647, 9102507926, 6799624964, 5413892765, 38744698, 3126352 #### [facility] (DEFAULT) [address] [place] [address] 04659Hkwhmdyf mean volume (Bld) [Entitic vol]10.3 fLHigh 6.3-10.2[facility] HospitalComment on above:Performed By: #### 78857286, 5252281204, 0492696651, 5014538269, 84369776, 1351110 #### [facility] (DEFAULT) [address] [place] [address] 87302QQF6.10 a22Xbvqof9.70-5.30[facility] HospitalComment on above:Performed By: #### 48462680, 9306373415, 6620183351, 0789281239, 19287707, 0860139 #### [facility] (DEFAULT) [address] [place] [address] 58856TOC9.1 d19Jaegsu6.5-10.5[facility] HospitalComment on above: Performed By: #### 44989403, 8667337126, 3736464862, 5093425791, 60061971, 0695274 #### [facility] (DEFAULT) [address] [place] [address] 15267OHJ Standardon 03-20-1035qTZJ Non AA>60Invalid Interpretation CodeOhio Valley Surgical Hospital HospitalComment on above:Performed By: #### [id number], 1238648183, 7130120851, 9763411783, 71299662, 1158322 #### [facility] (DEFAULT) [address] [place] [address] 30596bGPZ AA>60Invalid Interpretation [facility] Comment on above:Result Comment: Chronic Kidney disease could be indicated at eGFRs of less than 60 ml/min/1.73m2. Kidney Failure is indicated at less than 15 ml/min/1.24p3Qkedmrumn By: #### [id number], 7505644279, 9718201094, 3214764732, 83245539, 1737524 #### [facility] (DEFAULT) [address] [place] [address] 27220Vmfqxeu [Mass/Vol]3.6 g/dLNormal3.5-5.0[facility] Comment on above:Performed By: #### 77285677, 3973837965, 1639201230, 3204278650, 19066549, 3426249 #### [facility] (DEFAULT) [address] [place] [address] 12695Hfszado/Globulin [Mass ratio]1.1 {ratio}Low1.4-2.6MParkview Health Mont[facility] HospitalComment on above:Performed By: #### 60588115, 3128059602, 5762417231, 0628886711, 99148073, 9274673 #### [facility] (DEFAULT) [address] [place] [address] 87753Bny Phos61 IU/XAufzik53-84Vylpfrwf HospitalComment on above:Performed By: #### 87988653, 5074549845, 2061737433, 8862241622, 24657973, 0910942 #### [facility] (DEFAULT) [address] [place] [address] 85077AMO [Catalytic activity/Vol]14.0 U/PEpndyn59.0-54.0 [facility] HospitalComment on above:Performed By: #### 37196074, 3628354775, 4102836066, 9061051874, 31783498, 6423250 #### [facility] (DEFAULT) [address] [place] [address] 98184Nnljk gap [Moles/Vol]9.0 mmol/LNormal5.0-19.0[facility] HospitalComment on above:Performed By: #### 27052813, 6730321009, 6987629816, 8321701641, 76890357, 0081976 #### [facility] (DEFAULT) [address] [place] [address] 97099BEE [Catalytic activity/Vol]21 U/ICrpurh81-76Dpyxgihu HospitalComment on above:Performed By: #### 07434698, 1927665296, 0145879912, 6364444718, 40547634, 7555849 #### [facility] (DEFAULT) [address] [place] [address] 39136Msnf Total0.9 mg/dLNormal0.3-1.2MParkview Health Mont[facility]ier HospitalComment on above:Performed By: #### 84514473, 3837697552, 7187616924, 2881243492, 23214500, 6465770 #### [facility] (DEFAULT) [address] [place] [address] 95733Hgrawod [Mass/Vol]8.6 mg/dLLow8.9-10.3MParkview [facility] Comment on above:Performed By: #### 72475580, 4773069947, 0435098647, 9004637549, 87661176, 8745347 #### [facility] (DEFAULT) [address] [place] [address] 17803Nveunbmy [Moles/Vol]103 mmol/OYmaoih811-707Ntqllijv HospitalComment on above:Performed By: #### 87922522, 2457394140, 6319725680, 5039383813, 85036971, 2956746 #### [facility] (DEFAULT) [address] [place] [address] 11417WP1 [Moles/Vol]27 mmol/LZlayvt88-08Ujhtjinr Hospital Comment on above:Performed By: #### 93498762, 7979156537, 6416215856, 2158056769, 85558443, 0308386 #### [facility] (DEFAULT) [address] [place] [address] 45190Pjzeynayjm [Mass/Vol]0.81 mg/dLNormal0.60-1.30[facility] HospitalComment on above:Performed By: #### 96223191, 4651044504, 3342134375, 5700890658, 70038749, 0783906 #### [facility] (DEFAULT) [address] [place] [address] 81525Izxluopf (S) [Mass/Vol]3.4 g/dLNormal1.5-4.3[facility] HospitalComment on above:Performed By: #### 90261544, 5659366041, 4726680932, 4461524924, 64424671, 4157693 #### [facility] (DEFAULT) [address] [place] [address] 19968Ohmdcip [Mass/Vol]89.0 mg/gEBhuvwx10.0-118.0[facility] HospitalComment on above:Performed By: #### 91238250, 4635072569, 3623755144, 3915498343, 57537448, 2384561 #### [facility] (DEFAULT) [address] [place] [address] 87154Ddsegekkiw769 mOsm/LInvalid Interpretation CodeMiami Valley HospitalComment on above:Performed By: #### 65982719, 8447949628, 8901959119, 2238308529, 02070726, 2930670 #### [facility] (DEFAULT) [address] [place] [address] 36319Mlgzhxgce [Moles/Vol]4.0 mmol/LNormal3.6-5.1[facility] HospitalComment on above:Performed By: #### 50158537, 4402462921, 3086349506, 7991931677, 31943646, 3024568 #### [facility] (DEFAULT) [address] [place] [address] 59538Irbsive [Mass/Vol]7.0 g/dLNormal6.5-8.1[facility] Hospital Comment on above:Performed By: #### 96257716, 3814656860, 1103688725, 0515184839, 75477994, 9583180 #### [facility] (DEFAULT) [address] [place] [address] 42875Jrdffz [Moles/Vol]135.0 mmol/ZDiu668.0-144.0[facility] HospitalComment on above:Performed By: #### 06481352, 5180646836, 0108698609, 8314058351, 62807668, 2194780 #### [facility] (DEFAULT) [address] [place] [address] 00293Cwam nitrogen [Mass/Vol]12 mg/dLNormal8-26[facility] HospitalComment on above:Performed By: #### [id number], 8193224196, 5324317417, 2223478074, 19455005, 7093045 #### [facility] (DEFAULT) [address] [place] [address] 35447Jfei nitrogen/Creatinine [Mass ratio]15.0 mg/mgNormal 4.6-16.2[facility] HospitalComment on above:Performed By: #### 35161417, 2061646630, 6723222935, 0097068019, 86643312, 9568581 #### [facility] (DEFAULT) [address] [place] [address] 66558FqoF9e Standardon 03-30-2021.Hb14.4Invalid Interpretation CodeOhio Valley Surgical Hospital HospitalComment on above:Performed By: #### 37397310, 7358542031, 1737385493, 9626014886, 50561413, 1840943 #### [facility] (DEFAULT) [address] [place] [address] 00577.Hgb A1c0.48 g/dLInvalid Interpretation CodeOhio Valley Surgical Hospital HospitalComment on above:Performed By: #### 30482735, 4870405879, 9065543400, 0581091777, 88888431, 4736502 #### [facility] (DEFAULT) [address] [place] [address] 32873Ipyjgaz [Mass/Vol]103 mg/dLInvalid Interpretation Code [facility] HospitalComment on above:Performed By: #### [id number], 9123382053, 9532925000, 7492579433, 31843619, 6537881 #### [facility] (DEFAULT) [address] [place] [address] 14407UbN7o (Bld) [Mass fraction]5.2 %Normal4.6-6.2Magrwvumedicine [facility] HospitalComment on above:Performed By: #### 24172558, 9158789020, 1900835705, 3959766929, 99665859, 3889824 #### [facility] (DEFAULT) [address] [place] [address] 95446Oaako Panel Standardon 69-68-2234Pxiicueblvo [Mass/Vol] 171.0 mg/fVDpoobs93.0-200.0[facility] HospitalComment on above:Result Comment: Desirable - Less than 200 mg/dL Borderline high risk - 200-239 mg/dL High risk - 240 mg/dL and over.Performed By: #### [id number], 0592540737, 5963157128, 3069956713, 84336926, 6739707 #### [facility] (DEFAULT) [address] [place] [address] 51902Lrlaqczzobo in HDL [Mass/Vol]64 mg/rRZjcchw80-27Frrylgrt HospitalComment on above:Result Comment: High risk - <40 mg/dL.Performed By: #### [id number], [id number], [id number], [id number], [id number] #### [facility] (DEFAULT) [address] [place] [address] [id number] in LDL [Mass/Vol]93 mg/dLNormal1-100[facility] HospitalComment on above:Result Comment: Optimal - Less than 100 mg/dL Borderline high risk - 130-159 mg/dL High risk - 160-189 mg/dL.Performed By: #### [id number], [id number], [id number], [id number], [id number] #### [facility] (DEFAULT) [address] [place] [address] [id number].total/Cholesterol in HDL [Mass ratio]2.7 {ratio}Normal0.0-4.5[facility] HospitalComment on above:Performed By: #### [id number], [id number], 8726221979, 3659086056, 09460262, 3411705 #### [facility] (DEFAULT) [address] [place] [address] 19324Tslmrztkoljb [Mass/Vol]73.0 mg/dLNormal0.0-150.0[facility] HospitalComment on above:Performed By: #### [id number], [id number], 9675483906, 0576293796, 16149863, 0437186 #### [facility] [address] [place] [address] 08930HETM.15 mg/dLNormal5-40[facility] HospitalComment on above: Performed By: #### [id number], 5055369777, 9954656021, 2615769308, 12149633, 7644483 #### [facility] [address] [place] [address] 13641Catqzvlj and Metabolite, Quant LCon 24-62-9123Ygrsdsdb LC <1.0Invalid Interpretation [facility] on above:Result Comment: This test was developed and its performance characteristics determined by [employer]. It has not been cleared or approved by the Food and Drug Administration. Cotinine levels greater than 20.0 are consistent with the use of tobacco or tobacco cessation products. Performed At: [address] [id number] Speedy Rodriguez MD Ph:[phone] By: #### [id number], 3157205173, 3691573044, 2649236708, 34809200, 6241029 #### [facility] [address] [place] [address] 96881Bsnzkosn LC<1.0Invalid Interpretation [facility] on above:Result Comment: This test was developed and its performance characteristics determined by [employer]. It has not been cleared or approved by the Food and Drug Administration. Nicotine levels greater than 2.0 are consistent with the use of tobacco or tobacco cessation products.Performed By: #### [id number], 4904229233, 3055514638, 1488915696, 71636436, 2625346 #### [facility] (DEFAULT) [address] [place] [address] 71056.Auto Diff 1on 79-49-5393V[place] %8 %Normal1-12[facility] HospitalComment on above:Performed By: #### 7293770, 76139172, 9001142297, 7300017574, 6452610932, 41673657 #### [facility] (DEFAULT) [address] [place] [address] 87582Smtn Abs#0.0 v32Nignwk6.0-0.2[facility] HospitalComment on above:Performed By: #### 0882229, 79398750, 6363555406, 2535259548, 7176300484, 87736539 #### [facility] (DEFAULT) [address] [place] [address] 92837Jkybftlmu/100 WBC (Bld)0.6 %Normal0.2-2.0[facility] Hospital Comment on above:Performed By: #### 5820849, 48633223, 4531470048, 6392743016, 2216081520, 92204976 #### [facility] (DEFAULT) [address] [place] [address] 02405Gin Abs#0.7 i59Ekyv1.0-0.4[facility] HospitalComment on above:Performed By: #### 8879723, 57387631, 5022399365, 5077760107, 0856897750, 28842292 #### [facility] (DEFAULT) [address] [place] [address] 71332Hgyquctsvth/100 WBC (Bld)13.1 %High0.9-4.0[facility] HospitalComment on above:Performed By: #### 3760000, 28784105, 6533673233, 7658268345, 2536286133, 24083753 #### [facility] (DEFAULT) [address] [place] [address] 75726Rfgvo Abs#1.8 k26Eehion9.3-2.9[facility] HospitalComment on above:Performed By: #### 8929321, 71470390, 5562811716, 9102090091, 0410594055, 29486745 #### [facility] (DEFAULT) [address] [place] [address] 39870Gwihoqobdzk/100 WBC (Bld)33 %Xsfqlr72-08[facility] Hospital Comment on above:Performed By: #### 6010067, 20585565, 8329975050, 9501734674, 4462178546, 88959662 #### [facility] (DEFAULT) [address] [place] [address] 20883Bqzm Abs#0.4 a28Gvoisb0.0-0.8[facility] HospitalComment on above:Performed By: #### 2182942, 99925499, 6373708222, 4264290129, 5000604454, 09558180 #### [facility] (DEFAULT) [address] [place] [address] 72187Qdyy Abs#2.4 k25Rittwi4.5-9.2[facility] HospitalComment on above:Performed By: #### 0903735, 11016113, 2646107461, 1521184221, 3074008597, 48807936 #### [facility] (DEFAULT) [address] [place] [address] 74852Ovpfbiyboqm/100 WBC (Bld)45 %Mvtusg61-74Tqpomiae Hospital Comment on above:Performed By: #### 6817530, 47507708, 7023282560, 8202398835, 0601637395, 60935538 #### [facility] (DEFAULT) [address] [place] [address] 57547MAB w/ Auto Diffon 42-35-5602Peysskszqho distribution width (RBC) [Ratio]13.4 %Dfbtdj10.5-15.0[facility] HospitalComment on above: Performed By: #### 8388831, 06758266, 2627940309, 6597811355, 0802935074, 82059968 #### [facility] (DEFAULT) [address] [place] [address] 86740Ernqkvszve (Bld) [Volume fraction]38.4 %Jccvom83.7-40.4 [facility] HospitalComment on above:Performed By: #### 3772631, 01403178, 8398739420, 0547594384, 4655176845, 41417944 #### [facility] (DEFAULT) [address] [place] [address] 62473Ifpszbtvqb (Bld) [Mass/Vol]12.6 g/oGRagxwd01.3-15.9 [facility] HospitalComment on above:Performed By: #### 5675349, 11751245, 3060462057, 3809837549, 5050635394, 51043298 #### [facility] (DEFAULT) [address] [place] [address] 04977Qnidu WBC5.3 w40Xpuploc Interpretation CodeMiami Valley HospitalComment on above:Performed By: #### 8511561, 81858485, 7775808832, 0516894736, 9998668347, 40161908 #### [facility] (DEFAULT) [address] [place] [address] 83768Cop Diff?AutoNormalMiami Valley HospitalComment on above: Performed By: #### 8749914, 82453109, 6875884813, 0985567300, 6888007683, 53978324 #### [facility] (DEFAULT) [address] [place] [address] 77804SGV (RBC) [Entitic mass]29 oeChjscp60-76Tgymqwmf Hospital Comment on above:Performed By: #### 1531991, 26407860, 8770116122, 8531440184, 2338991733, 04030412 #### [facility] (DEFAULT) [address] [place] [address] 68538PWBH (RBC) [Mass/Vol]33 g/qWKapfgc25-76Grlnrxja Hospital Comment on above:Performed By: #### 6022421, 12783903, 2295530537, 8765164710, 7989379164, 60623059 #### [facility] (DEFAULT) [address] [place] [address] 53641SOU (RBC) [Entitic vol]89 rWZieyxv91-856Dzopfogx Hospital Comment on above:Performed By: #### 8434131, 30243841, 4765648267, 9386922433, 0402627802, 93617749 #### [facility] (DEFAULT) [address] [place] [address] 87764Npccayfg642 j95Uwlhgs594-842Sqexlvno HospitalComment on above:Performed By: #### 5015277, 23422863, 0194774541, 0338242627, 9066220042, 27521218 #### [facility] (DEFAULT) [address] [place] [address] 81579Zrewqgaz mean volume (Bld) [Entitic vol]10.1 fLNormal 6.3-10.2MParkview Health Montpelier HospitalComment on above:Performed By: #### 8525996, 85240535, 1105557764, 0201162144, 8312939765, 63241209 #### [facility] (DEFAULT) [address] [place] [address] 63377ZEX9.32 i51Jafduu0.70-5.30[facility] HospitalComment on above:Performed By: #### 3678281, 71655599, 6417981458, 5476462057, 1191080886, 24403097 #### [facility] (DEFAULT) [address] [place] [address] 79012SEE2.3 s48Fdluru1.5-10.5[facility] HospitalComment on above: Performed By: #### 1989840, 13010403, 5828867627, 6178425912, 8415693240, 16370116 #### [facility] (DEFAULT) [address] [place] [address] 96166FQH Standardon 45-47-8988sJQR Non AA>60Invalid Interpretation [facility] Center[facility] above:Performed By: #### 0273649, 70831324, 5148719769, 7220147476, 5788838977, 63447611 #### [facility] (DEFAULT) [address] [place] [address] 70816fSVU AA>60Invalid Interpretation [facility] Comment on above:Result Comment: Chronic Kidney disease could be indicated at eGFRs of less than 60 ml/min/1.73m2. Kidney Failure is indicated at less than 15 ml/min/1.25p8Oouimqdiq By: #### 4865396, 87683505, 6901423024, 6363234468, 3200804297, 76868986 #### [facility] (DEFAULT) [address] [place] [address] 41653Oyjatil [Mass/Vol]3.8 g/dLNormal3.5-5.0[facility] Comment on above:Performed By: #### 3153507, 27353778, 6191820905, 7292927535, 3370230693, 83089824 #### [facility] (DEFAULT) [address] [place] [address] 20899Rvotfos/Globulin [Mass ratio]1.1 {ratio}Low1.4-2.6MParkview Health Montpelier HospitalComment on above:Performed By: #### 7291215, 77028819, 8778202522, 6447824412, 6202414178, 69614478 #### [facility] (DEFAULT) [address] [place] [address] 94656Jot Phos40 IU/SWresgj47-41Lqswkeoi HospitalComment on above:Performed By: #### 1470015, 34429160, 9407875850, 4333005846, 1950232875, 08367138 #### [facility] (DEFAULT) [address] [place] [address] 41277LDE [Catalytic activity/Vol]13.0 U/LLow14.0-54.0[facility] HospitalComment on above:Performed By: #### 2041686, 31356418, 6623665040, 0412858726, 2413480511, 98427141 #### [facility] (DEFAULT) [address] [place] [address] 92768Ubgwp gap [Moles/Vol]11.0 mmol/LNormal5.0-19.0[facility] HospitalComment on above:Performed By: #### 1229749, 69269575, 8967583631, 4939259712, 2164008989, 31428843 #### [facility] (DEFAULT) [address] [place] [address] 35683LJW [Catalytic activity/Vol]19 U/OHeudmt38-63Hkflgtxy HospitalComment on above:Performed By: #### 3347821, 33819412, 4742131080, 1014498011, 9696926192, 79717940 #### [facility] (DEFAULT) [address] [place] [address] 91937Cmen Total1.1 mg/dLNormal0.3-1.2[facility] HospitalComment on above:Performed By: #### 3062813, 67356314, 5703717863, 1571081494, 7916670443, 44820293 #### [facility] (DEFAULT) [address] [place] [address] 31775Gxjxbwn [Mass/Vol]9.1 mg/dLNormal8.9-10.3MParkview [facility] Comment on above:Performed By: #### 9822346, 32223488, 6565619963, 4730450900, 4474803120, 75054851 #### [facility] (DEFAULT) [address] [place] [address] 50749Pzmzwncl [Moles/Vol]107 mmol/RBqsjta582-050Vmgrzngj HospitalComment on above:Performed By: #### 2006241, 26093588, 6674640176, 0581470240, 9276814218, 70192481 #### [facility] (DEFAULT) [address] [place] [address] 98661NN3 [Moles/Vol]23 mmol/JOugqtm30-63Eyaqloqm Hospital Comment on above:Performed By: #### 3661525, 94311616, 4026410018, 0947238786, 6216046587, 40398949 #### [facility] (DEFAULT) [address] [place] [address] 77856Cdnmyrhwwm [Mass/Vol]0.75 mg/dLNormal0.60-1.30[facility] HospitalComment on above:Performed By: #### 3865477, 65124476, 1317986731, 4724006372, 6598389816, 39025051 #### [facility] (DEFAULT) [address] [place] [address] 56169Ucunurje (S) [Mass/Vol]3.4 g/dLNormal1.5-4.3[facility] HospitalComment on above:Performed By: #### 5096920, 02731794, 2706291191, 8114661223, 5879970514, 69656738 #### [facility] (DEFAULT) [address] [place] [address] 34921Lqxgzfp [Mass/Vol]98.0 mg/mOKdqxib75.0-118.0[facility] HospitalComment on above:Performed By: #### 4154904, 85884224, 5124017457, 2032847877, 5392555612, 07970664 #### [facility] (DEFAULT) [address] [place] [address] 85132Mxbsmykgjm341 mOsm/LInvalid Interpretation CodeOhio Valley Surgical Hospital HospitalComment on above:Performed By: #### 2031146, 38262913, 9008272386, 6078879689, 5502335118, 55314875 #### [facility] (DEFAULT) [address] [place] [address] 04646Zjfcxspvr [Moles/Vol]4.0 mmol/LNormal3.6-5.1[facility] HospitalComment on above:Performed By: #### 2092750, 32012042, 1189363896, 4733223020, 9364765718, 24679004 #### [facility] (DEFAULT) [address] [place] [address] 31207Limjzsq [Mass/Vol]7.2 g/dLNormal6.5-8.1[facility] Hospital Comment on above:Performed By: #### 8710270, 56550498, 9004888665, 1919921433, 4034791843, 68434304 #### [facility] (DEFAULT) [address] [place] [address] 78790Teflpm [Moles/Vol]137.0 mmol/NOhmvpu843.0-144.0[facility] HospitalComment on above:Performed By: #### 5488321, 57725823, 0654196732, 4563982508, 3619048546, 19348267 #### [facility] (DEFAULT) [address] [place] [address] 53509Mmzs nitrogen [Mass/Vol]20 mg/dLNormal8-26[facility] HospitalComment on above:Performed By: #### 6780397, 21904997, 3800142408, 7613264891, 5865926209, 96956120 #### [facility] (DEFAULT) [address] [place] [address] 28993Ttzj nitrogen/Creatinine [Mass ratio]27.0 mg/mgHigh 4.6-16.2[facility] HospitalComment on above:Performed By: #### 4727693, 67118735, 3348123326, 2506105670, 6042549518, 40039036 #### [facility] (DEFAULT) [address] [place] [address] 44232XceS8h Standardon 04-10-2020.Hb14.7Invalid Interpretation [facility] CenterComment on above:Performed By: #### 05541561, 9511275674, 2508481931, 9187323492, 40375652, 8209182 #### [facility] (DEFAULT) [address] [place] [address] 95665.Hgb A1c0.51 g/dLInvalid Interpretation CodeMiami Valley HospitalComment on above:Performed By: #### 53568440, 4383957978, 7590506164, 8563331123, 07996288, 1537525 #### [facility] (DEFAULT) [address] [place] [address] 42061Mdadjuw [Mass/Vol]106 mg/dLInvalid Interpretation Code [facility] HospitalComment on above:Performed By: #### 43565710, 0746128742, 3896587746, 1484915360, 51458400, 9850896 #### [facility] (DEFAULT) [address] [place] [address] 20268XdK1d (Bld) [Mass fraction]5.3 %Normal4.6-6.2[facility] HospitalComment on above:Performed By: #### 73520011, 2421295862, 9797325969, 6834430704, 69650843, 8827399 #### [facility] (DEFAULT) [address] [place] [address] 64352Wgguh Panel Standardon 99-79-4319Yzyaopnksbs [Mass/Vol] 162.0 mg/pXNrxsjx08.0-200.0[facility] HospitalComment on above:Result Comment: Desirable - Less than 200 mg/dL Borderline high risk - 200-239 mg/dL High risk - 240 mg/dL and over.Performed By: #### 7049267, 52407491, 6386592295, 2292709955, 4274906233, 46830792 #### [facility] (DEFAULT) [address] [place] [address] 82010Bedutclxovr in HDL [Mass/Vol]64 mg/aHVboorx32-64Agwhkvkf HospitalComment on above:Result Comment: High risk - <40 mg/dL.Performed By: #### 2805362, 97131691, 2769229117, 1375762695, 2441292571, 50622844 #### [facility] (DEFAULT) [address] [place] [address] 43073Loqxkxoeruc in LDL [Mass/Vol]90 mg/dLNormal1-100[facility] HospitalComment on above:Result Comment: Optimal - Less than 100 mg/dL Borderline high risk - 130-159 mg/dL High risk - 160-189 mg/dL.Performed By: #### 7587743, 36662198, 0924443959, 2524315967, 2031900289, 50076453 #### [facility] (DEFAULT) [address] [place] [address] 25888Tejgxsoaqew.total/Cholesterol in HDL [Mass ratio]2.5 {ratio}Normal0.0-4.5[facility] HospitalComment on above:Performed By: #### 5254510, 80798430, 3150359619, 7828378198, 5732557148, 84820937 #### [facility] (DEFAULT) [address] [place] [address] 78469Omdcsexvnkpb [Mass/Vol]38.0 mg/dLNormal0.0-150.0[facility] HospitalComment on above:Performed By: #### 7128334, 16281174, 2163954486, 1988183781, 3347140429, 81698312 #### [facility] (DEFAULT) [address] [place] [address] 25927NTOS.8 mg/dLNormal5-40[facility] HospitalComment on above: Performed By: #### 8058320, 83098281, 0828669977, 8442672260, 8561667745, 74058376 #### [facility] (DEFAULT) [address] [place] [address] 80919 Vital Signs Date TimeVital SignValuePerforming DntvvenuxFsvmsntc63-80-5973 15:10-0400Body cucita238.56 cmTess Leahy MD Work Phone: [facility]06-17-2025 15:10-0400 Body mass index (BMI) [Ratio]22.5 kg/h5TtyajsTess Leahy MD Work Phone: [facility]06-17-2025 15:10-0400 Body hzokdn89.47 kgTess Leahy MD Work Phone: [phone]06-17-2025 15:10-0400 Diastolic blood orcpnipr95 mm[Hg]Tess Leahy MD Work Phone: [facility]06-17-2025 15:10-0400 Heart rate55 /minTess Leahy MD Work Phone: [facility]06-17-2025 15:10-0400 Systolic blood mm[Hg]Tess Leahy MD Work Phone: [facility]05-12-2025 14:48-0400 Body jwqtoe914.56 cmAnup Pearl MD Work Phone: [phone]05-12-2025 14:48-0400 Body mass index (BMI) [Ratio]22.5 kg/j9PtyaevzAnup Pearl MD Work Phone: [phone]05-12-2025 14:48-0400 Body iypsag50.53 kgAnup Pearl MD Work Phone: [phone]05-12-2025 14:48-0400 Diastolic blood bihttnih17 mm[Hg]Anup Pearl MD Work Phone: [phone]05-12-2025 14:48-0400 Heart rate69 /minAnup Pearl MD Work Phone: [phone]05-12-2025 14:48-0400 SaO2% (BldA) [Mass fraction]97 %Anup Pearl MD Work Phone: [phone]05-12-2025 14:48-0400 Systolic blood wtdzkjzy905 mm[Hg]Anup Pearl MD Work Phone: [phone] [place], [place] 2014301-22-2025 14:58-0500 Body mass index (BMI) [Ratio]22.34 kg/q8Dygjs Marcus DO Work Phone: [facility]8182 14:58-0500Body .02 kgCorey Marcus DO Work Phone: [facility] HospitalGyjyzwntua47-23-0512 14:58-0500Diastolic blood rnhmvuev36 mm[Hg]Triston Marcus DO Work Phone: [facility] HospitalOswbhbnzob15-47-1832 14:58-0500Systolic blood yypahodf801 mm[Hg]Triston Marcus DO Work Phone: [facility] HospitalWwliwltlbf21-70-9145 14:43-0500Body gipbmf315.56 cmTess Leahy MD Work Phone: [facility]11-18-2024 14:43-0500 Body mass index (BMI) [Ratio]22.5 kg/u5QjwmulTess Leahy MD Work Phone: [facility]11-18-2024 14:43-0500 Body .59 kgTess Leahy MD Work Phone: [facility]11-18-2024 14:43-0500 Diastolic blood rhictsen07 mm[Hg]Tess Leahy MD Work Phone: [facility]11-18-2024 14:43-0500 Heart rate55 /minTess Leahy MD Work Phone: [facility]11-18-2024 14:43-0500 Systolic blood dggfwube850 mm[Hg]Tess Leahy MD Work Phone: [facility]06-03-2024 15:46-0400 Body .56 cmMD Alis Alt-Aniket Work Phone: [facility]06-03-2024 15:46-0400 Body mass index (BMI) [Ratio]22.7 kg/m2MD Alis Alt-Aniket Work Phone: [facility]06-03-2024 15:46-0400 Body tkynse36.04 kgMD Alis Alt-Aniket Work Phone: [facility]06-03-2024 15:46-0400 Diastolic blood htqfjxim66 mm[Hg] Alis Alt-Aniket Work Phone: [facility]06-03-2024 15:46-0400 Heart rate54 /minMD Snell Alt-Aniket Work Phone: [facility]06-03-2024 15:46-0400 Systolic blood tcukfyoi963 mm[Hg]MD Alis Beth Work Phone: [facility]03-13-2024 14:03-0400 Blood Pressure LocationMichael NILL [facility] Xpwlzpep83-26-3906 14:03-0400Diastolic blood nsqxdyos52 mm[Hg]Anup NILL [facility] Rrnuqfqk10-94-1370 14:03-0400Heart rate 72 /minMichael NILL [facility] Maexyylv90-17-7821 14:03-0400 Respiratory rate16 /minMichael NILL [facility] Zevcvnus45-76-5997 14:03-0400Systolic blood ayakmgef000 mm[Hg]Anup NILL [facility] [place] Encounters Encounter DateEncounter [facility] ProviderFacilityStart: 01-15-2025 End: 04-69-9134mdrvmkwklqLaqywj E Braun MD Work Phone: [facility] Work Phone: Start: 01-15-2025 End: 32-21-3893Ueeohwgw ReferredNil R Dae ROSALES FACS-LAB Path Spec [place] HospStart: 01-15-2025 End: 88-59-1922kcwjhqksugZyaqovq R NILLFacility:CD:[id number]: 12-04-2024 Non-patient / Non-visitTess Leahy MD-[facility] Work Phone: Start: 12-03-2024 End: 75-46-5355Gepbxza encounter procedureTess Leahy MD-[facility] Work Phone: Start: 12-03-2024 End: 55-39-5430Ptvcohr encounter statusTess Leahy MDKeenan Private Hospitaltart: 11-20-2024 End: 72-31-4897Eiliipwmx Result EncounterCorey Marcus DO Work Phone: [facility] External Department UnsolicitedStart: 11-20-2024 End: 04-86-1648Hknijfpyf Result EncounterCorey Marcus DO Work Phone: [facility] External Department UnsolicitedStart: 10-28-2024 End: 91-04-4232ntwvwxpkxbCjudtxh Nill MD Work Phone: [facility] Work Phone: Start: 10-28-2024 End: 42-88-2865Biifhux encounter procedureAnup Pearl MD Work Phone: [facility] Work Phone: Start: 59-87-1366Pmc-patient / Non-visitMiclizzyl Dae ROSALES Work Phone: [facility] Work Phone: Start: 10-02-2024 End: 95-51-2154izpoxypzkvYjktpnv R [facility]illSt[facility] Work Phone: Start: 10-02-2024 End: 93-76-0160Pryvdmbo ReferredAnup Pearl MD Work Phone: [facility]-LAB Path Spec [place] HospStart: 74-63-4733Xjq-patient / Non-visitMicfreeman Pearl MD Work Phone: [facility] Work Phone: Start: 10-02-2024 End: 67-94-8613shnvgipqrnTdxmltn R NILLFacility:CD:[id number]: 09-24-2024 End: 53-57-8071uzfucpszvpHgcvttt R NILLFacility:[facility] BellevueStart: 07-10-2024 End: 77-87-0091Inxjbji encounter procedureCorey Marcus DO Work Phone: [facility] Work Phone: Start: 07-10-2024 End: 50-31-6244Ufomxerj flow sheetCorey Marcus DO Work Phone: [facility] OBComment on above:Well woman exam with routine gynecological exam; Breast cancer screening by mammogram; Hot flashesStart: 07-10-2024 End: 49-99-5660tjmllutuskLCQQM FAZIONot AvailableStart: 07-10-2024 End: 69-42-9197Zwllot flowsheetCorey Marcus DO Work Phone: [facility] OBStart: 07-10-2024 End: 66-63-4184Rnngzy flowsheetCorey Marcus DO Work Phone: [facility] OBStart: 07-10-2024 End: 24-89-1109Sojfmppfo Result EncounterCorey Marcus DO Work Phone: [facility] Department UnsolicitedStart: 05-06-2024 End: 46-86-2120krborpowvuIthymh E Braun MD Work Phone: [facility] Work Phone: Start: 05-06-2024 End: 64-57-8572Fqqnhdr encounter procedureTess Leahy MD Work Phone: [facility] Work Phone: Start: 02-14-2024 End: 63-13-9038syoaeprtqjKQ Marcia E Braun Work Phone: [facility] Work Phone: Start: 02-14-2024 End: 05-58-2197Veoulfhj ReferredMD Tess Leahy Work Phone: [facility]-LAB Path Spec [facility] HospStart: 04-37-1091Kli-patient / Non-visitTess Leahy MD Work Phone: [facility] Work Phone: Start: 01-30-2024 End: 66-04-0413qgiezclyumOLQAVTU S WRIGHTNot AvailableStart: 34-83-3376Xmmgyzz encounter statusMD Alis Alt-Aniket [facility]2023 End: 92-82-1297axileffhkjKP Alis Alt-Aniket Work Phone: [facility] Work Phone: Start: 11-20-2023 End: 60-44-6191Pwyjhcfhk for general adult medical examination without abnormal findingsMD Alis Alt-Aniket Work [facility] 11-20-2023 End: 95-10-6378Fmavrhk encounter procedureMD Alis Alt-Aniket Work Phone: [facility] Work Phone: Start: 45-63-5531Cpm-patient / Non-visitMD Alis Alt-Aniket Work Phone: [facility] Work Phone: Start: 82-97-3969Oju-patient / Non-visitMD Alis Alt-Aniket Work Phone: [facility] Work Phone: Start: 10-11-2023 End: 50-76-1141xgnlcopuefSO Alis Alt-Aniket Work Phone: [facility] Work Phone: Start: 10-11-2023 End: 10-88-0384Bjbqnsgk ReferredMD Alis Alt-Aniket Work Phone: [facility] Path Spec Rosa HospStart: 12-52-1230Yun-patient / Non-visitMD Alis Ignacia Work Phone: [facility] Work Phone: Start: 08-30-2023 End: 60-61-6661Tdbgpoa encounter procedureMichael R NILL General Surgery Nill/[place]aid [place] Start: 11-11-2022 End: 54-18-2677jxkqhfykwxYB STEVE DAS .Facility:A5Vtpvf: 11-05-2022 Encounter for general adult medical examination without abnormal findingsDR TESS [facility]rev[facility] HospitalStart: 11-01-2022 End: 10-77-7010sjsluuobewPT MARCIA E BRAUNFacility:N9Pnpeq: 11-01-2022 End: 69-89-3456Dffkxojjv for general adult medical examination without abnormal findingsDR TESS LEAHYFacility:R2Uazvt: 06-23-2022 End: 62-89-5452skeltsyadfAF STEVE DAS .Facility: Procedures DateProcedureProcedure DetailPerforming ClinicianStart: 72-42-4132KY TOMOSYNTHESIS SCREENING BICorey Marcus DO Work Phone: Start: 32-47-1169YupuqeidkgdIosoc Marcus DO Work Phone: Start: 62-99-4231LIL,APTIMA HPV,AGE GDLNCorey Marcus DO Work Phone: Start: 51-70-6973Uwcbqpkmxcs observation [Identifier] in Cervix by Cyto stainCorey Marcus DO Work Phone: Start: 54-22-5176QzztxzpdyhyZhdvp Marcus DO Work Phone: Start: 96-45-9893Tofiobgwrox observation [Identifier] in Cervix by Cyto stainCorey Marcus DO Work Phone: Start: 40-42-3208BzapqzkiqnuCwkfz Marcus DO Work Phone: Start: 32-38-4132RhkyexasxknZnclmxb NILL Start: 93-91-4344ResqmvedytablsjggbonvnfhaeUgxhheo NILL Start: 53-75-3699CecntzefuxkLcfxnop NILL Start: 26-60-0996DvdrenbhipjxzelflcxlxmmvulXtyhdds NILL Cesarean sectionMichael NILL CholecystectomyMichael NILL Excision of ganglion of footMichael NILL Plan of Treatment DateCare ActivityDetailAuthorStart: 53-70-1691Ibwnyvhlk for malignant neoplasm of cervixNOMS HealthcareStart: 60-61-3527Uhqzkjkgm for malignant neoplasm of colonNOMS HealthcareStart: 86-25-6038Qfwnrcoeg for malignant neoplasm of cervix [facility] HealthcareStart: 07-14-2025 End: 49-69-9295Nmmuyoz encounter gvdvttupd98/26/2026 2:40 PM EST Office Visit [facility] [address] [place] [address] Triston Velazquez, DO [address] [place], [place] [address] [facility] B[facility] OBStart: 71-45-0988Crlyslfoo for malignant neoplasm of breastMammogramNOMS HealthcareStart: 07-10-2024 End: 53-07-1015Lvvhgxt encounter qgomttjgz94/22/2025 2:40 PM EST Office Visit [facility] [address] [place] [address] Triston Velazquez, DO [address] [place], [place] [address] ArrivedNOKAISER FOUNDATION [facility] OBComment on above:ArrivedStart: 07-10-2024 End: 12-38-2754WA Breast - bilateral ScreeningBilateral screening mammogram Imaging Routine Breast cancer screening by mammogram Expected: 07/10/2024, Expires: 09/07/2025[facility] Work Phone: comment on above:Expected: 07/10/2024, Expires: 09/07/2025Start: 79-84-4201Kljodttgs vaccinationInfluenza Vaccine (#1)[facility] HealthcareStart: 57-99-7401Quqlilhdr for malignant neoplasm of cervixHPV/Cotest [facility] HealthcareStart: 87-35-2759Spsmglvfv for malignant neoplasm of colonNOTriHealthTHIN PREP TIS PAP AND HR HPV DNATHIN PREP TIS PAP AND HR HPV DNA Pathology and Cytology Routine Well woman exam with routine gynecological exam Ordered: 07/10/2024[facility] HospitalComment on above:Ordered: 07/10/2024 Immunizations Immunization DateImmunizationNotesCare NdvqzaauZdygqiwg68-06-0552grskchimw virus vaccine, unspecified formulationCorey Marcus DO Work Phone: [facility] HospitalIfgclzbxti91-45-3892locphkwma virus vaccine, unspecified formulationMichael NILL [facility] Surgery Oyebgcas02-49-1566RGCG-QsN-5 (COVID-19) Ad26 vaccine, recombinantMichael NILL [phone]-RvvvoMiddletown Hospital General Surgery [place] Comment on above:Result Comment: 2023-08-21: [id number] Payers DatePayer CategoryPayerPolicy [id number] [place] Blue ShieldBS Member Subscriber Plan / Payer (Effective 2022-Present) Name: Ioana Marie Member ID: [id number] Relation to Subscriber: Self Name: Ioana Marie Subscriber ID: [id number] PayerID: Not on file Type: Not on file Address: [facility] [id number] [place] [id number] [id number] 2.840.1.297309.3.579.2. [id number] 2.840.1.791845.3.57[id number] 2.840.1.551735.3.57[id number] 2.840.1.012981.3.57[id number] 2.0.1.943641.3.57[id number] 2.840.1.780467.3.57[id number] 2.0.1.860747.3.57[id number] 2.16840.1.359352.3.579.2.727UnknownMMO Netk [id number] 2.16840.1.6[id number] 2.16840.1.955289.3.579.2.531 [id number] 2.16840.1.365278.3.579.2.859Cvnjkzwxxe1003920kl Social History DateTypeDetailFacilityStart: 08-30-2023 End: 78-18-7445Bglzqoe smoking statusEx-smoker (finding)[facility] [place] Tobacco smoking statusNeverGeneral Surgery BellueStart: 05-31-2023 End: 25-10-6726Naq [facility]igned At [facility] CenterStart: 08-68-4950Cbd Assigned At [facility] Troytart: 05-06-2024 End: 75-76-7284VoaMkbvbi (finding)[facility] Hospitaltart: 64-87-8708Ngnouew smoking status NHISNever smoked tobaccoNOWY HealthcareStart: 06-26-2023 End: 11-18-8248Bepnypkku beverage intakeCurrent drinker of alcohol (finding)[facility] HealthcareStart: 05-31-2023 End: 17-69-5436Kkqaiio of Social functionNOMS HealthcareStart: 50-72-5050Dbnuvuq CommentOccasional alcohol useNOWY HealthcareStart: 46-09-6962Alv assigned at firsthealthNot on fileBRIGHAM CITY COMM[facility] HealthcareNEGATED: Highlighted [facility] Functional Status AgbjIsjacjttmuZeiqtgTaplnyzl08-47-8702Bwveerpqbi StatusN/AGeneral Surgery [place] Clinical Notes 02-14-2013 to 10-28-2024 Note Date & YaprDrfyGasqhleq32-94-0216 Evaluation note* Diagnosis Onset Date Resolution Status Admit Date Contact dermatitis acuteMay 2024 2:41pmRhinitis, allergicacuteMay 2024 2:41pmContact dermatitisacuteJune 2024 3:02pmHypothyroidism, unspecifiedAugust 2013acuteJune 2024 3:02pmWellness examinationacuteJune 2024 3:02pm [facility] Work Phone: [phone]) 843-137804-08-2025 NoteGeneral Surgery Office/Clinic Note Chief Complaint consultation for epigastric pain and bowel changes HPI Staff 53 year old female presents on self referral consultation for abdominal pain, bloating and constipation. Last colonoscopy completed 2016 with diverticulosis. History of Present Illness 53 yo female with h/o hypothyroidism, chronic GERD, h/o prepyloric ulcer, presents with postprandial bloating, intermittent epigastric pain, change in bowel habits with frequent constipation; patienthad acute recurrent prepyloric ulcer 1 year ago, follow up EGD 01/2024 with healing, but still smallresidual ulcer and pyloric spasm; patient on Protonix [...] swallowing difficulties, no hearing loss, no ear infection(s),no nose bleeds. Cardiovascular: normal blood pressure, no [...] mild tenderness, epigastrium no masses, no palpable hernias,diastasis recti no, no hepatosplenomegaly; normal bs Lymphatic: [...] Substance Abuse, 08/30/2023 Tobac (more content not included)...[facility] CampusComment on above: Result Comment: Electronically Signed By: DAE ROSALES, Anup Ernst\Date and Time Signed: 09/24/24 13:34 [id number] History of Present illness Narrative* Naty Graham, BAKERY CLERK - 07/10/2024 2:40 PM EST Reason for Appointment: Patient ID: Ioana Marie [...] nursing note reviewed. Exam conducted with a oral pathologist present. Vitals: Estimated body mass index is [...] of: Triston Velazquez DO documented in this encounterLakeland Regional HospitalZdnecleocu49-75-7217 Evaluation note* Diagnosis Onset Date Resolution Status Hypothyroidism, unspecified February 14, 2013 acuteWellness examinationacute [facility] Work Phone: Evaluation + Plan note No data available for this section [facility] [place] Evaluation noteNo assessment information available [facility] Work Phone: Evaluation note* Diagnosis Onset Date Resolution Status Admit Date Concern about memory acuteNovember 2023 2:28pmHeadacheacuteNovember 2023 2:28pm [facility] Work Phone: Evaluation note* Diagnosis Well woman exam with routine gynecological exam Routine gynecological examination Breast cancer screening by mammogram Hot flashes documented in this encounter [facility] Discharge instructions No data available for this section General [facility] [place] Progress note No data available for this section [facility] Surgery [place] Reason for referral (narrative)No reason for referral information availableSelect [facility] Work Phone: Summary Purpose Family History No Family History [...] Reason for Visit Chief Complaint Admit Date Rash on Leg/Arm/Behind Ears October 28 2:41pm Wellness December 03, 2024 3:02 pm Unknown January 15, 2025 7:28 am Reason for Visit Admit Date Contact dermatitis October 28, 2024 2:41p m Rhinitis, allergic October 28, 2024 2:41p m Contact dermatitis December 03, 2024 3:02 pm Hypothyroidism, unspecified December 03, 2 025 3:02pm Wellness examination December 03, 2024 3:0 2pm Chief Complaint Admit Date Unknown February 14, 2024 10 :42am Headaches May 06, 2024 2:28pm Reason for Visit Admit Date Concern about memory May 06, 2024 2:28pm Headache May 06, 2024 2:28pm Chief Complaint Unknown Amb Documentation WELLNESSReason for VisitHypothyroidism, unspecified Wellness examination Additional Source Comments INFORMATION SOURCE (unrecogn ized section and content) DATE CREATED AUTHOR 04/04/2021 [facility] DATE CREATED AUTHOR AUTHOR'S ORGANIZ ATION 11/25/2022 [facility] DATE CREATED AUTHOR AUTHOR'S ORGANIZ ATION 07/12/2024 [facility] EPIC DATE CREATED AUTHOR AUTHOR'S ORGANIZ ATION 01/22/2025 [facility] DATE CREATED AUTHOR AUTHOR'S ORGANIZ ATION 03/28/2025 [facility] Patient Care team informatio n (unrecognized section [...] Start: February 14, 2024 End: February 14, 2024Micfreeman Pearl MD FACSAttending ProviderActiveStart: February 14, 2024 End: February 14, 2024 [...] S tart: October 11, 2023 Tess Leahy MDAttending ProviderActiveStart: October 11, 2023 Team Status: Inactive Member Role Status Natanael Beth MD Primary Care Provider Active S tart: October 11, 2023 End: October 11, 2023Anup Pearl MD FACSAttending ProviderActiveStart: October 11, 2023 End: October 11, 2023 Team Status: Active Member Role Status Dates Alis Beth MD Primary Care Provider Active S tart: November 07, 2023 Jaja Grace AAtst[facility] ([place] ProviderActiveStart: November 07, 2023 Team Status: Active Member Role Status Dates Tess Leahy MD Primary Care Provide r, Attending Provider Active Start: November 14, 2023 Team MemberRelationshipSpecialtyStart DateEnd Date Tess Leahy MD [address] [place] [address] PCP - [facility] Medicine06/26/23Team MemberRelationshipSpecialtyStart DateEnd Date Tess Leahy MD [address] [place] [address] PCP - [facility] Medicine06/26/23Team MemberRelationshipSpecialtyStart DateEnd Date Tess Leahy MD [address] [place] [place] [address] PCP - [facility] Medicine06/26/23 Team Status: Inactive Member Role Status Dates [...] Start: October 28, 2024 End: October 28, 2024Team MemberRelationshipSpecialtyStart DateEnd Date Tess Leahy MD PCP - [facility] Medicine06/26/23 Team Status: Inactive Member Role Status Dates Tess Leahy MD Primary Care Provider Active Start: October 28, 2024 End: October 28, 2024Shaina Suazo ProviderActiveStart: October 28, 2024 End: October 28, 2024 Team Status: Inactive Member Role Status Dates Tess Leahy MD Primary Care Provider Active Start: December 03, 2024 End: December 03, 2024Tess Leahy Shaina ProviderActiveStart: December 03, 2024 End: December 03, 2024 Team Status: Active Member Role Status Dates Tess Leahy MD Primary Care Provider Active Start: December 04, 2024 Shaina Suazo ProviderActiveStart: December 04, 2024 Team Status: Inactive Member Role Status Dates Anup Pearl MD [facility] Attending Provider Active Start: January 15, 2025 End: January 15, 2025 Goals (unrecognized section and content) Goals may be documented in a n alternate section Reason for Visit (unrecogniz ed section and content) ReasonCommentsWell Women Visit FOR RECORDS PERTAINING TO PATIENTS [...] BE BASED ON THE PRIMARY CLINICAL RECORDS. [facility]. provides no warranty or guarantee of the accuracy or completeness of information in this document.
--- OUTSIDE RECORDS SUMMARY | 2025-04-15 12:48 | XMS_ITS | Clinical Summary ---
Author Organization [facility] Healthcare Address [address] [place] [address] Care Team Providers Care University Extension Specialist Name Role Phone Tess Nunn MD Primary Care Provider [phone] Allergies No known active allergies Medications MedicationSigDispense QuantityRefillsLast FilledStart DateEnd DateStatus levothyroxine (Synthroid, Levoxyl) 88 MCG tablet TAKE ONE TABLET BY MOUTH IN THE MORNING ON AN EMPTY STOMACH ONCE DAILY02/13/2023 Active pantoprazole (ProtoNix) 40 MG EC tablet TAKE 1 TABLET BY MOUTH IN THE MORNING AND 1 TABLET AT PEZFKTM8904/03/2023ctive sucralfate (Carafate) 1 g tablet Take by mouth 4 (four) times a day before mealsActive estrogens, conjugated, (Premarin) 0.3 MG tablet Indications:Hot flashesTake 1 tablet (0.3 mg) by mouth Daily Take 1 tablet daily by mouth for 30 days 30 tablet 5Active estradiol (Estrace) 0.5 MG tablet Indications:Hormone disorderTake 1 tablet (0.5 mg) by mouth Daily Take 1 tablet by mouth for 30 days 30 tablet 1105Active venlafaxine XR (Effexor XR) 37.5 MG 24 hr capsule Indications:Mood disorderTake 1 capsule (37.5 mg) by mouth Daily Do not crush or chew. 30 capsule 5Active ondansetron (Zofran) 4 MG tablet Indications:NauseaTake 1 tablet (4 mg) by mouth every 6 (six) hours if needed for nausea or vomiting for up to 30 doses Take 1 tablet by mouth every 6 hours as needed for nausea. 30 tablet 5Active Family History Medical HistoryRelationNameCommentsColon cancerMaternal GrandmotherBreast cancer MotherBreast cancerPaternal GrandmotherRelationNameStatusCommentsDaughter 1Alive Daughter 2AliveMaternal GrandmotherMotherPaternal Grandmother Social History Tobacco UseTypesPacks/DayYears UsedDateSmoking Tobacco: Never Tobacco Cessation:Counseling Given: Not Answered Alcohol UseStandard Drinks/WeekCommentsYes0 (1 standard drink = 0.6 oz pure alcohol)Occasional alcohol useCommentsUnknownSex and Gender Information ValueDate RecordedSex Assigned at BirthNot on fileLegal LovHdfkdd56/15/2023 6:57 PM EDTGender IdentityNot on fileSexual OrientationNot on file Last Filed Vital Signs Vital SignReadingTime TakenCommentsBlood Bmucqpao426/7407/10/2024 2:58 PM EST Pulse--Temperature--Respiratory Rate--Oxygen Saturation--Inhaled Oxygen Concentration--Kewokp46 kg (130 lb 1.9 oz)07/10/2024 2:58 PM BUGOazumh095.6 cm (5' 4 )06/22/2022 12:00 PM ESTBody Mass Index22.34006/22/2022 12:00 PM EST Plan of Treatment DateTypeDepartmentCare Team (Latest Contact Info)Mpuxdwzmpou93/26/2026 2:40 PM ESTOffice Visit [facility] Rosa OBGAGAN [address] [place] [address] Agapito Velazquez DO [address] Fatemeh Mohan, [facility] Insurance Care Teams Team MemberRelationshipSpecialtyStart DateEnd Date Tess Nunn MD [facility]06/26/23
--- OUTSIDE RECORDS SUMMARY | 2025-04-15 12:48 | XMS_ITS | Clinical Summary ---
Author Organization [facility] Address [address] [place] [address] Care Team Providers Care Transportation Mechanic Name Role Phone Unavailable Primary Care Provider Unavailabl e Social History Tobacco UseTypesPacks/DayYears UsedDateSmoking Tobacco: Never AssessedUT Safety & EnvironmentAnswerDate RecordedFear of Current or Ex-PartnerNot on file 08/10/2023Emotionally AbusedNot on file08/10/2023hysically AbusedNot on file 08/10/2023Sexually AbusedNot on file08/10/2023hysically or Sexually AbusedNot on file08/10/2023CommentsUnknownSex and Gender InformationValueDate RecordedSex Assigned at BirthNot on fileLegal FwmXczaau45/30/2022 12:40 AM EDT Gender IdentityNot on fileSexual OrientationNot on file Last Filed Vital Signs Vital SignReadingTime TakenCommentsBlood Zmhornmj725/7010 9:46 AM EDT Pulse--Temperature--Respiratory Rate--Oxygen Cbilmevsdp35%03/19/2021 9:46 AM EDT Inhaled Oxygen Concentration--Mbtapf30.4 kg (131 lb)03/19/2021 9:43 AM EDTHeight 162.6 cm (5' 4 )03/19/2021 9:43 AM EDTBody Mass Index22.4910 9:43 AM EDT Plan of Treatment Not on file
--- OUTSIDE RECORDS SUMMARY | 2025-04-15 12:48 | XMS_ITS | Clinical Summary ---
Author Organization [facility] Address [id number] [place] [address] Care Team Providers Care Solar Thermal Technician Name Role Phone Tess Nunn MD Primary Care Provider [phone] Allergies No known active allergies Medications MedicationSigDispense QuantityRefillsLast FilledStart DateEnd DateStatus sucralfate (CARAFATE) 1 gram tablet Take 1 tablet (1 g total) by mouth in the morning and 1 tablet (1 g total) at noon and 1 tablet (1 g total) in the evening and 1 tablet (1 g total) before bedtime. 360 tablet ctive pantoprazole (PROTONIX) 40 mg EC tablet TAKE 1 TABLET BY MOUTH IN THE MORNING AND 1 TABLET AT BEDTIME 180 tablet ctive levothyroxine (SYNTHROID, LEVOTHROID) 75 MCG tablet Take 88 mcg by mouth in the morning.Active Active Problems ProblemNoted DateDiagnosed DateChronic superficial gastritis without bleeding 11/21/20164061Wplpbemrqnpvkt58/05/2017 Family History Medical HistoryRelationNameCommentsStomach cancerMaternal AuntLung cancer Maternal GrandfatherCancerMaternal GrandmotherColon cancerMaternal Grandmother Stomach cancerMaternal GrandmotherBreast cancerMotherCancerMotherBreast cancer Paternal GrandmotherPancreatic cancerPaternal UncleRelationNameStatusComments FatherAliveMaternal AuntAliveMaternal GrandfatherDeceasedMaternal Grandmother DeceasedMotherAlivePaternal GrandfatherDeceasedPaternal GrandmotherDeceased Paternal UncleDeceasedSisterAlive Social History Tobacco UseTypesPacks/DayYears UsedDateSmoking Tobacco: FormerSmokeless Tobacco: NeverAlcohol UseStandard Drinks/WeekCommentsYes0 (1 standard drink = 0.6 oz pure alcohol)SOCIALChildcareAnswerDate IdbpfgmbGivmdtmjcTxgayov60/11/2019Employment AnswerDate XcjcyygeOmbtduvktcCqubnjb65/11/2019Purpose - LifeAnswerDate Recorded Purpose and direction in lrdbVjbhedo59/10/2021CommentsNoSex and Gender InformationValueDate RecordedSex Assigned at BirthNot on fileLegal SexFemale 01/20/2015 5:57 PM EDTGender IdentityNot on fileSexual OrientationNot on file Last Filed Vital Signs Vital SignReadingTime TakenCommentsBlood Toorwhus369/7209 1:06 PM EDT Pulse--Rlpcwfnuluz29.6 ??C (97.8 ??F)03/14/2022 1:06 PM EDTRespiratory Rate-- Oxygen Saturation--Inhaled Oxygen Concentration--Gvownl35.1 kg (130 lb 6.4 oz) 03/14/2022 1:06 PM JMFQreyvx245.8 cm (5' 4.5 )03/14/2022 1:06 PM EDTBody Mass Index22.04003/14/2022 1:06 PM EDT Plan of Treatment Health MaintenanceDue DateLast DoneCommentsDepression Hdpjgqjgb85/12/1984Tobacco Jwosvmzfr64/12/1984Adult BMI Okakqycos47/12/1990DTaP,Tdap and Td Vaccines (1 - Tdap)10/28/1990Pap Smear10/28/1992Zoster (Shingles) Vaccine (1 of 2)10/28/2021 Nlmdcxgjiso44/17/202205/, 01/19/2011COVID-19 Vaccine (2 - season) Influenza Qxwpcpg26, 04/01/2020, 03/29/2019, Additional history exists Medical Devices Not on file Procedures Procedure NamePriorityDate/TimeAssociated DiagnosisCommentsHM COLONOSCOPYRoutine 01/19/2011 from Last 3 Months or Most Recently Relevant to Health Maintenance Results * COLONOSCOPY (01/19/2011)ComponentValueRef RangeTest MethodAnalysis Time Performed AtPathologist SignatureHM ColonoscopyCOLONOSCOPYEHS EXTERNAL NON- INTERFACED REF LAB Narrative Authorizing ProviderResult TypeResult StatusScanning Provider ExternalHEALTH MAINTENANCEFinal ResultPerforming OrganizationAddressCity/State/ZIP CodePhone Number [facility] EXTERNAL NON-INTERFACED REF LAB [address] [place] [address] from Last 3 Months or Most Recently Relevant to Health Maintenance Insurance Care Teams Team MemberRelationshipSpecialtyStart DateEnd Tess Nunn MD [address] [place] [address] PCP - General07/21/17
== END 2025-04-15 12:44 | disposition home or self-care (01) ==
LOC: PST 12:43
PROVIDERS: PCP Family Medicine; Visit Provider Surgery
DX: Z01.818 Encounter for other preprocedural examination (principal); Z87.11 Personal history of peptic ulcer disease; K25.3 Acute gastric ulcer without hemorrhage or perforation

== ENCOUNTER 2025-04-23 06:19 | Day surgery (SDC) | payer BC, SELFPAY ==
--- NOTE | 2025-04-23 | OP_ITS ---
OPERATION DATE: 04/23/2025 PREOPERATIVE DIAGNOSIS: History of antral ulcer. POSTOPERATIVE DIAGNOSIS: Healing antral prepyloric ulcer, mild gastritis and sliding type hiatal hernia. PROCEDURE: EGD with biopsy of antral ulcer, biopsy of the antrum, and biopsy of the gastric body. SURGEON: Anup Pearl M.D. ANESTHESIA: Monitored anesthesia care. ESTIMATED BLOOD LOSS: Less than 1 mL. 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 She now presents for re-evaluation to document healing of the ulcer. Indications, risks, benefits, alternatives of proceeding with EGD were explained extensively to the patient, including the risks of bleeding, aspiration, esophageal/gastric/duodenal perforation or anesthetic complications. All of her questions were answered. Informed consent was obtained. PROCEDURE: Patient brought to the operating room, placed in the left lateral decubitus position. Monitored anesthesia care was provided. Bite block was placed in the patient?s mouth. Scope was inserted into the oropharynx. Under direct visualization, it was advanced into the esophagus, past the cricopharyngeus, down to the stomach. The stomach was insufflated with air. The pylorus was traversed down to the descending portion of the duodenum. There was no evidence of duodenitis or ulceration. There was no scarring within the pyloric channel. Within the prepyloric area, there was noted to be a healing gastric ulcer with a narrow 4 mm scarred area that was very superficial. No raised border. No old or new blood. This was biopsied, as well as the area around that area, with cold biopsy forceps with good hemostasis. There was some mild antral gastritis within the body of the stomach, that was biopsied as well, with cold biopsy forceps. The scope was retroflexed. There was noted to be a sliding type hiatal hernia. The GE junction was noted at approximately 35 cm. The Z-line was regular. The remainder of the esophagus was unremarkable. The scope was then withdrawn. Patient tolerated procedure well, was sent to recovery room in good condition. CC: Tess Nunn M.D. [facility]Srinivas
--- OUTSIDE RECORDS SUMMARY | 2025-04-23 06:22 | XMS_ITS | CCD ---
Author Organization [facility] Care Team Providers Care Spray Painter Name Role Phone PIPPA ., DR WILSON Admitting Unavailabl e KARASIK ., DR WILSON Consulting Unavailabl e PIPPA ., DR WILSON Attending Unavailklaus e ARMOND, DR TESS Pickard Primary Care Unavailable INDEPENDENCE, DR TYLOR Whitney Consulting Unavailable ARMOND, DR TESS Pickard Consulting Unavailable ARMOND, DR TESS Pickard Attending Unavailable ARMOND, DR TESS Pickard Admitting Unavailable LEAHY, DR TESS Pickard Primary Care Unavailable KARCHIP ., DR WILSON Admitting Unavailabl e KARASIK ., DR WILSON Consulting Unavailabl e KARASIK ., DR WILSON Attending Unavailklaus e LEAHY, DR TESS Pickard Primary Care Unavailable TESS LEAHY Primary Care Physician MD Ails Beth Primary Care Provider MD Anup Pearl Attending Provider [phone] MD Tess Leahy Primary Care Provider MD Anup Pearl Attending Provider [phone] Tess Leahy MD Primary Care Provider [phone] Anup Pearl MD Attending Provider [phone] Tess Leahy MD Primary Care Provider TRISTON VELAZQUEZ Attending Unavailable GUILHERME ROMO Attending Unavailable Anup Pearl MD Attending Provider Tess Leahy MD Primary Care Provider [phone] Anup Pearl MD Attending Provider Tess Leahy MD Primary Care Provider Tess Leahy MD Attending Provider [phone] Tess Leahy Primary Care Unavailable Nill, Anup [...] [No Known Medication Allergies]Propensity to adverse reactions (disorder)[facility] Rep[facility] Medications Current Medications MedicationDrug Class(es)DatesSig (Normalized)Sig (Original)estradiol 0.5 mg oral tablet (3 sources)EstrogenStart: 10-56-5737aptw 1 tablet by mouth once dailyestradiol (Estrace) 0.5 MG tablet Indications: Hormone disorder Take 1 tablet (0.5 mg) by mouth Daily Take 1 tablet by mouth for 30 days 30 tablet 11 08/12/2024 Active Start: 07-10-2024 End: 68-57-1204zbcv 1 tablet by mouth once dailyestradiol (Estrace) 0.5 MG tablet Indications: Hot flashes Take 1 tablet (0.5 mg) by mouth Daily Take 1 tablet by mouth for 30 days 30 tablet 11 07/10/2024 07/10/2024 Discontinued (Ineffective)estrogens, conjugated (half-way) 0.3 mg oral tablet (4 sources)EstrogenStart: 07-10-2024 End: 94-69-8469elwa 1 tablet by mouth once daily, then take 1 tablet by mouth once dailyestrogens, conjugated, (Premarin) 0.3 MG tablet Indications: Hot flashes Take 1 tablet (0.3 mg) by mouth Daily Take 1 tablet daily by mouth for 30 days 30 tablet 3 07/10/2024 Activelevothyroxine sodium 0.1 mg oral tablet (20 sources)l-ThyroxineStart: 24-64-8236vwqb 1 tablet by mouth once daily in the morningStart: 01-09-2024 End: 81-77-9927gccf 1 tablet by mouth once daily in the morningLevothyroxine 88 mcg tablet Discontinued 0 .ROUTE .COMPLEX 90 November 04, 2024 12:27pm December 06, 2024 12:06pm TAKE 1 TABLET BY MOUTH IN THE MORNING ON AN EMPTY STOMACH ONCE DAILYStart: 11-07-2023 End: 48-48-4725fkya 1 capsule by mouth once dailyLevothyroxine 88 mcg capsule Discontinued 88 MCG PO Daily November 07, 2023 12:00am January 09, 2024 10:41am Start: 32-73-3942yssv 1 tablet by mouth once dailySynthroid 88 mcg Tab 88 mcg = 1 tab(s), Oral, Daily, Refills(s) 0 Start Date: 08/30/23 Status: OrderedStart: 16-85-8470amrv 1 tablet by mouth once daily in the morninglevothyroxine (Synthroid, Levoxyl) 88 MCG tablet TAKE ONE TABLET BY MOUTH IN THE MORNING ON AN EMPTY STOMACH ONCE DAILY 02/13/2023 ActiveMulti Vitamins oral tablet (1 source)Start: 91-03-4084lres 1 tablet by mouth once dailyMulti Vitamins oral tablet 1 tab(s), Oral, Daily, Refill(s) 0 Start Date: 08/30/23 Status: Ordered pantoprazole 40 mg delayed release oral tablet (14 sources)Proton Pump InhibitorStart: 46-41-7688kxzm 1 tablet by mouth once dailyProtonix 20 mg Tab-DR 20 mg = 1 tab(s), Oral, Daily, Refills(s) 0 Start Date: 08/30/23 Status: OrderedStart: 06-17-1855fxih 1 tablet by mouth in the morningpantoprazole (ProtoNix) 40 MG EC tablet TAKE 1 TABLET BY MOUTH IN THE MORNING AND 1 TABLET AT BEDTIME 04/03/2023 Activesucralfate 1000 mg oral tablet (13 sources)Aluminum ComplexStart: 59-47-6283pgjo 1 tablet by mouth once before mealtimesucralfate (Carafate) 1 g tablet Take by mouth 4 (four) times a day before meals Active Completed/Discontinued Medications MedicationDrug Class(es)DatesSig (Normalized)Sig (Original)amoxicillin 875 mg / clavulanate 125 mg oral tablet (3 sources)Penicillin-class AntibacterialStart: 05-15-2024 End: 54-78-7890ccyb 1 tablet by mouth twice dailyAmoxicillin-Pot Clavulanate 875-125 mg tablet Discontinued 1 TAB PO Twice daily May 15, 2024 1:00am October 28, 2024 2:56pm Problems Active Problems Problem ClassificationProblemDateDocumented DateEpisodic/ChronicAbdominal pain (2 sources)Epigastric pain; Translations: [Epigastric pain]Onset: 08-30-2023 EpisodicAdministrative/social admission (5 sources)Memory finding; Translations: [Person with feared health complaint in whom no diagnosis is made]26-09-6641YxibcyoaFsfkahsc reactions (3 sources)Contact dermatitis; Translations: [Unspecified contact dermatitis, unspecified cause]95-18-6910PmjqowzxKehqceqlniemag and diverticulitis (1 source)Diverticular -28-2138NjmhccaWlmurastdd disorders (2 sources)Gastroesophageal reflux disease without esophagitis; Translations: [Gastro-esophageal reflux disease without esophagitis]Onset: 39-87-1143Vcezfjv Gastroduodenal ulcer (except hemorrhage) (2 sources)H/O: peptic ulcer; Translations: [Personal history of peptic ulcer disease]Onset: 31-09-3383YxlnikfbKvowsqdr; including migraine (5 sources)Headache; Translations: [Headache]70-25-1412JswgglyaBykwk gastrointestinal disorders (1 source)History of kepgldive35-36-8294OiruvhjbGmbqx screening for suspected conditions (not mental disorders or infectious disease) (10 sources)Encounter for screening mammogram for malignant neoplasm of breast; Translations: [Encounter for screening for malignant neoplasm of cervix]Onset: 46-48-5908VcdrnwqbTndtc upper respiratory disease (2 sources)Allergic rhinitis; Translations: [Allergic rhinitis, unspecified] 99-72-0871SxjgtapGzrfieim codes; unclassified (1 source)Family history of malignant neoplasm of breast; Translations: [FAMILY HX MALIG NEOPLASM OF BREAST]Onset: 76-79-4631HbrinxnzJgkbpylt codes; unclassified (1 source)Family history of malignant neoplasm of digestive organs; Translations: [FAM HX MALIG NEOPLASM DIGESTIV ORGN]Onset: 08-14-8850Izwvafjp Residual codes; unclassified (2 sources)Flushing; Translations: [Flushing]12-27-0221SyfpaituEijbmfu disorders (10 sources)Hypothyroidism; Translations: [Hypothyroidism, unspecified]Onset: 181630-88-2835RjhhvzdOhbqbfxyfftq (1 source)Body mass index 20-24 - spdzul69-35-5280 Past or Other Problems Problem ClassificationProblemDateDocumented DateEpisodic/ChronicImmunizations and screening for infectious disease (1 source)Encounter for screening for human papillomavirus (HPV); Translations: [ENC SCREENING HUMAN PAPILLOMAVIRUS]Onset: 53-16-6771Qlhszsow Results Test NameValueInterpretationReference RangeFacilityReminderson 03-27-2025 RemindersReminders From: Taryn Acuna LPN To: [facility] - Clinical; Sent: 01/24/2025 15:43:28 EDT Show up: 03/26/2025 07:00:00 EDT Subject: EGD recall Due Date/Time: 04/17/2025 07:00:00 EDT Reminder/Recall Patient due for EGD 04/17/2025 to monitor gastric ulcer. Left voice mail message to call back to discuss. [facility]25[facility]L Specimen: [id number] Received: 01/15/25 Status: KATIE Kai Num: [id number] Spec Type: Surgical Subm Dr: Anup Pearl MD FACS Tissues: A Gastric Biopsy (ANTRAL ULCER BX) B Gastric Biopsy (GASTRIC BODY BX) Procedures: HE/4, Gross/Micro L4/2, H PYLORI/2, IHC First AB/2 Age/ Patient Sex Location Account Attending Physician AníbalmaryIoana 54/F LABELL [id number] Anup Pearl MD FACS SPEC NUM: [id number] RECD: 01/15/25 STATUS: KATIE QUINN NUM: [id number] CARYN: 01/15/25 [facility] [address]: Anup Pearl MD FACS ENTERED: 01/15/25-13[address] [facility] DR: Prerna Lee SPEC TYPE: Surgical DEPT: JEFRY TRUONG ENTERED BY: [id number] RECV BY: [id number] ORDERED: HE/4, Gross/Micro L4/2, H PYLORI/2, IHC [...] submitted in a single cassette. (1, ns, [id number] A) JG Part B is received in formalin labeled with the patients name, date of , and gastric body BX are two powell-loza, focally erythematous, friable, 0.3 cm each in greatest dimension tissue bits. The specimen is entirely submitted in a single cassette. (1, ns, [id number] B) JG Specimen: [id number] Received: 01/15/25 Status: KATIE Quinn Num: [id number] Spec Type: Surgical Subm Dr: Anup Pearl MD FACS Tissues: A Gastric Biopsy (ANTRAL ULCER BX) B Gastric Biopsy (GASTRIC BODY BX) Procedures: HE/4, Gross/Micro L4/2, H PYLORI/2, IHC First AB/2 Patient: Allegra Mariefer [id number] (Continued) Specimen: [id number] Received: 01/15/25 (Continued) Signed (signature on file) Micah Sahni MD 01/17/25 1406 Specimen: [id number] Received: 01/15/25 Status: KATIE Quinn Num: [id number] Spec Type: Surgical Subm Dr: Anup Pearl MD FACS Tissues: A Gastric Biopsy (ANTRAL ULCER BX) B Gastric Biopsy (GASTRIC BODY BX) Procedures: HE/4, Gross/Micro L4/2, H PYLORI/2, IHC First AB/2 Patient: Ioana Marie [id number] (Continued) Specimen: [id number] Received: 01/15/25 (Continued) Microscopic Description A B: Microscopic examination is performed. CPT Codes 17660 x2, 16573 x2 Specimen: [id number] Received: 01/15/25 Status: KATIE Quinn Num: [id number] Spec Type: Surgical Subm Dr: Anup Pearl MD FACS Tissues: A Gastric Biopsy (ANTRAL ULCER BX) B Gastric Biopsy (GASTRIC BODY BX) Procedures: HE/4, Gross/Micro L4/2, H PYLORI/2, IHC First AB/2 Patient: Ioana Marie [id number] (Continued) Signed (signature on file) Micah Sahni MD 01/17/25 1406Normal [facility] Physician GroupThe [facility] 21-35-2878MekhvixmtWjflbetlt From: Taryn Acuna LPN To: N - [...] for 01/15/25 for egd , [facility]Bas[facility] Auto (Bld) [#/Vol]Ordered By: Tess Leahy on 12-04-2024 Basophils (Bld) [#/Vol]0.1 10 3/uL0.0-0.1FTrinity Health System Basophils/100 WBC Auto (Bld)Ordered By: Tess Leahy on 88-71-4014Rupmlblbf/100 WBC (Bld)0.9 %0.2-2.0[facility] HospitalEosinophils/100 WBC Auto (Bld)Ordered By: Tess Leahy on 24-95-1669Qoonfrbfuen/100 WBC (Bld)13.4 %High 0.9-7.0[facility] HospitalErythrocyte distribution width Auto (RBC) [Ratio]Ordered By: Tess Leahy on 45-89-4413Ffpabgvjwyx distribution width (RBC) [Ratio]12.0 %11.0-15.0[facility] HospitalEstimated glomerular filtration rate (GFR) non- AmericanOrdered By: Tess Leahy on 80-64-1226HLQ/1.73 sq M.predicted among non-blacks MDRD (S/P/Bld) [Vol rate/Area]mL/min/{1.73_m2}>=60 mL/min/1.73m 2FTrinity Health System Globulin Calc (S) [Mass/Vol]Ordered By: Tess Leahy on 09-99-9462Jlfhrlkf (S) [Mass/Vol]3.1 g/dLCleveland Clinic Hillcrest HospitalGlucose mean value [Mass/volume] in Blood Estimated from glycated hemoglobinOrdered By: Tess Leahy on 26-97-8437Hxcbdnj glucose Estimated from glycated hemoglobin (Bld) [Mass/Vol]103 mg/dLCleveland Clinic Hillcrest HospitalHematocrit Auto (Bld) [Volume fraction]Ordered By: Tess Leahy on 72-00-5173Toojimbddq (Bld) [Volume fraction]39.8 %36.0-48.0[facility] HospitalHemoglobin A1c percentageOrdered By: Tess Leahy on 59-73-3236CiI7y (Bld) [Mass fraction]5.2 % 4.5-6.2FTrinity Health SystemComment on above:ADA RECOMMENDED LIMIT 4.0 - 6.0ADA THERAPEUTIC TARGET < 7.0ACTION SUGGESTED> 7.0Hemoglobin [Mass/volume] in BloodOrdered By: Tess Leahy on 63-74-2562Kzxupxzjcn (Bld) [Mass/Vol]13.7 g/dL12.0-16.0[facility] HospitalLaboratory - Chemistry and Chemistry - challengeOrdered By: Tess Leahy on 22-48-8366Pgxqthw [Mass/Vol]3.5 g/dL3.4-5.0[facility] HospitalALP [Catalytic activity/Vol]50 U/U24-111EfvmchansCleveland Clinic Hillcrest HospitalALT [Catalytic activity/Vol]24 U/P20-65GyrfitgzeCleveland Clinic Hillcrest HospitalAST [Catalytic activity/Vol]20 U/I01-80RbmhzeelkCleveland Clinic Hillcrest HospitalBilirubin [Mass/Vol]0.8 mg/dL0.2-1.0[facility] HospitalCalcium [Mass/Vol]9.2 mg/dL 8.5-10.1FTrinity Health SystemChloride [Moles/Vol]103 mmol/L98-107 [facility] HospitalCO2 [Moles/Vol]30.1 mmol/L21.0-32.0[facility] HospitalCreatinine [Mass/Vol]0.63 mg/dL0.55-1.02[facility] HospitalFree T4 [Mass/Vol]1.01 ng/dL0.76-1.46[facility] HospitalGFR/1.73 sq M.predicted MDRD (S/P/Bld) [Vol rate/Area] mL/min/{1.73_m2}>=60 mL/min/1.73m 2FTrinity Health SystemGlucose [Mass/Vol]98 mg/hV56-495BdkcmqamsCleveland Clinic Hillcrest HospitalPotassium [Moles/Vol] 4.1 mmol/L3.5-5.1FTrinity Health SystemProtein [Mass/Vol]6.6 g/dL 6.4-8.2FOhio State University Wexner Medical Centerodium [Moles/Vol]140 mmol/N141-015 [facility] HospitalTSH Qn5.042 m[IU]/LHigh0.358-3.740[facility] HospitalUrea nitrogen [Mass/Vol]19.0 mg/dLHigh7.0-18.0[facility] HospitalUrea nitrogen/Creatinine [Mass ratio]30.2 mg/mgCleveland Clinic Hillcrest HospitalLaboratory - Hematology and Cell countsOrdered By: Tess Leahy on 11-19-8930Qhevgstk granulocytes/100 WBC (Bld)0.3 %0.0-0.5FTrinity Health SystemLeukocytes [#/volume] corrected for nucleated erythrocytes in Blood by Automated counOrdered By: Tess Leahy on 57-25-6927UVZ corrected for nucl RBC Auto (Bld) [#/Vol]5.8 10 3/uL4.0-11.0[facility] HospitalLymphocytes Auto (Bld) [#/Vol]Ordered By: Tess Leahy on 34-26-2780Hktgqrokunh (Bld) [#/Vol]1.5 10 3/uL1.2-3.8[facility] HospitalLymphocytes/100 WBC Auto (Bld)Ordered By: Tess Leahy on 12-04-2024 Lymphocytes/100 WBC (Bld)25.6 %20.5-60.0[facility] Auto (RBC) [Entitic mass]Ordered By: Tess Leahy on 39-81-2495STO (RBC) [Entitic mass]32.6 pg26.7-34.0[facility] HospitalHC Auto (RBC) [Mass/Vol]Ordered By: Tess Leahy on 10-70-2060NTNG (RBC) [Mass/Vol]34.4 g/dL 29.9-35.2FTrinity Health SystemMCV Auto (RBC) [Entitic vol]Ordered By: Tess Leahy on 15-30-3688LPM (RBC) [Entitic vol]94.8 fL81.0-99.0[facility] HospitalMonocytes Auto (Bld) [#/Vol]Ordered By: Tess Leahy on 61-13-2108Ndpefcday (Bld) [#/Vol]0.4 10 3/uL0.3-0.8[facility] HospitalMonocytes/100 WBC Auto (Bld)Ordered By: Tess Leahy on 12-04-2024 Monocytes/100 WBC (Bld)7.5 %1.7-12.0[facility] HospitalNeutrophils Auto (Bld) [#/Vol]Ordered By: Tess Leahy on 40-89-7021Odumjqwjmrs (Bld) [#/Vol]3.0 10 3/uL1.4-6.5FTrinity Health SystemNeutrophils/100 WBC Auto (Bld)Ordered By: Tess Leahy on 14-40-5205Okijqjdmnmh/100 WBC (Bld)52.3 % 43.0-75.0[facility] HospitalNo Panel InformationOrdered By: Tess Leahy on 62-60-1518Qhjvanbjghp # (Auto)0.8 10 3/uLHigh0.0-0.7FTrinity Health SystemImmature Granulocyte # (Auto)0.02 10 3/uL0.00-0.03[facility] HospitalPlatelet mean volume Auto (Bld) [Entitic vol]Ordered By: Tess Leahy on 99-81-1131Riduqmbj mean volume (Bld) [Entitic vol]9.4 fLLow 9.5-13.5FTrinity Health SystemPlatelets Auto (Bld) [#/Vol]Ordered By: Tess Leahy on 91-33-0096Pgyvqnklf (Bld) [#/Vol]264 10 3/kJ946-816FhqdsfrvlCleveland Clinic Hillcrest HospitalRBC Auto (Bld) [#/Vol]Ordered By: Tess Leahy on 76-96-0320ACU (Bld) [#/Vol]4.20 10 6/uL4.20-5.40[facility] Tiffin Hospitalerum or plasma albumin/globulin mass ratioOrdered By: Tess Leahy on 26-39-8313Earowyl/Globulin [Mass ratio]1.1 {ratio}[facility] Hospitalerum or plasma anion gap determinationOrdered By: Tess Leahy on 13-47-0907Slzsb gap [Moles/Vol]11.0 mmol/LFTrinity Health SystemMM TOMOSYNTHESIS SCREENING BIon 03-57-2800[place] [address] Mammography Report Signed Patient: IOANA MARIE MR#: [id number] : 1970 Acct:[id number] Age/Sex: 54 / F ADM Date: 11/20/24 Loc: MAMMO Attending Dr: Triston Velazquez D.O. Ordering Physician: Triston Velazquez D.O. Results: Date of Service: 11/20/24 Follow Up: Procedure(s): MM tomosynthesis screening BI Accession Number(s): [id number] cc: Tess Leahy M.D.; Triston Velazquez D.O. Patient Name: IOANA MARIE MR#: [id number] : 1970 Exam Date: 11/20/2024 Ordering Doctor: [...] breast cancer at age 69. LOCATION: [facility] BREAST COMPOSITION: The breasts are extremely [...] Signed By: 11/20/24 1255 DD/ 1254 TD/TT: [employer]:TBHRadiology, Radiologist, - 11/20/2024 [facility] [place] [id number] Mammography Report Signed Patient: IOANA MARIE MR#: [id number] : 1970 Acct:[id number] Age/Sex: 54 / F ADM Date: 11/20/24 Loc: MAMMO Attending Dr: Triston Velazquez D.O. Ordering Physician: Triston Velazquez D.O. Results: Date of Service: 11/20/24 Follow Up: Procedure(s): MM tomosynthesis screening BI Accession Number(s): [id number] cc: Tess Leahy M.D.; Triston Velazquez D.O. Patient Name: IOANA MARIE MR#: [id number] : 1970 Exam Date: 11/20/2024 Ordering Doctor: [...] breast cancer at age 69. LOCATION: [facility] BREAST COMPOSITION: The breasts are extremely [...] Signed By: 11/20/24 1255 DD/ 1254 TD/TT: [employer]: KIMBERLY [facility] Medical CenterRadiology Study observation (narrative)[facility] TOMOSYNTHESIS SCREENING BIOrdered By: Radiologist Radiology on 17-46-5801RP[employer]-PR Work Phone: Laboratory - Chemistry and Chemistry - challengeon 10-94-4119Pjdkcnb [Mass/Vol]9.1 mg/dL8.5-10.1FTrinity Health SystemNo Panel InformationOrdered By: Anup Pearl on 24-40-5372Bbiiptzayuxdq Pathology TestSee [facility] & Brentwood HospitalComment on above:See report. Scanned copy available in EMR.Pathology Request for Lab Corpon 10-02-2024 Pathology Request for Lab [facility] Physician GroupComment on above:Order Comment: GI SPECIMENResult Comment: See report. Scanned copy available in EMR. PERFORMED BY: [place] [address] PATHOLOGIST PAYROLL CLERK VIKI OLIVEROS M.D.Performed By: #### PATH TO [facility] #### [place] [id number] USAAmbulatory Visit Summaryon 48-22-0405Hkakuhcwja Visit SummaryAmbulatory Visit Summary IOANA MARIE :1970 [...] you for choosing us for your care. NormalProvidence HospitalIGP,APTIMA HPV,AGE GDLNon 23-28-8146JYS GDLN ACOG TESTINGNote.NOMS HealthcareComment on above:TESTS RESULT FLAG UNITS REF RANGE LAB Clinician Provided Cytology Information Source.............Cervix;Endocervix No. of containers..01 ThinPrep Vial Age Angelica ACOG Valencia... FLAG LEGEND: L-Low Normal,H-High Normal,LL-Alert Low,HH-Alert High <-Panic Low,>-Panic High,A-Abnormal,AA-Critical Abnormal Performed at: 01 =[address] [place] [address] Lilo Ferrer MD, HPV APTIMANegativeNegativeNOMS HealthcareComment on above:This nucleic acid amplification test detects fourteen high- risk HPV types (16,18,31,33,35,39,45,51,52,56,58,59,66,68) without differentiation. Performed at: =[address] [id number] Agency Cashier: Lilo Ferrer MD, Phone: [phone] Performed at: [facility], [place] [id number] Agency Cashier: Lilo Ferrer MD, Phone: [phone] IGP, APTIMA HPV, RFX 16/18,45Note.NOMS HealthcareComment on above:TESTS RESULT FLAG UNITS REF RANGE LAB DIAGNOSIS: 02 NEGATIVE FOR INTRAEPITHELIAL LESION OR MALIGNANCY. Specimen adequacy: 02 Satisfactory for evaluation. Endocervical and/or squamous metaplastic cells (endocervical component) are present. Performed by: 02 Vy Pantoja, City Bus Driver . 02 Note: Note 02 The Pap [...] Low,>-Panic High,A-Abnormal,AA-Critical Abnormal Performed at: [address] [facility] [place] [address] Lilo Ferrer MD, BRUSH-SPATULA CERVIX ENDOCERVIX CLINISYNCNOMS HealthcareBasophils Auto (Bld) [#/Vol]on 37-14-7865Grzujylyl (Bld) [#/Vol]Automated basophil count0.0-0.1FTrinity Health System Basophils/100 WBC Auto (Bld)on 15-92-6923Eammutpfc/100 WBC (Bld)Automated basophil %0.2-2.0[facility] HospitalEosinophils/100 WBC Auto (Bld) on 63-71-4132Knespuxhhzw/100 WBC (Bld)Automated eosinophil %High0.9-7.0[facility] HospitalErythrocyte distribution width Auto (RBC) [Ratio]on 59-09-6338Bnepeoqrgdx distribution width (RBC) [Ratio]Erythrocyte distribution width [Ratio] by Automated count11.0-15.0[facility] HospitalHCG ( test) IA.rapid Ql (U)on 19-63-6489VAL ( test) Ql (U)Urine human chorionic gonadotropin (hCG) detection by immunoassayNEGATIVECleveland Clinic Hillcrest HospitalHematocrit Auto (Bld) [Volume fraction]on 02-14-2024 Hematocrit (Bld) [Volume fraction]Hematocrit [Volume Fraction] of Blood by Automated count36.0-48.0[facility] HospitalHemoglobin [Mass/volume] in Bloodon 43-46-6908Fyqacedeqx (Bld) [Mass/Vol]Hemoglobin [Mass/volume] in Blood12.0-16.0[facility]st HospitalLon 02-14-2024L Specimen: [id number] Received: 02/15/24 Status: KATIE Quinn Num: [id number] Spec Type: Surgical Subm Dr: Anup Pearl MD FACS Tissues: A Esophagus Biopsy (ANTRAL ULCER BX) Procedures: HE/2, Gross/Micro L4 Age/ Patient Sex Location Account Attending Physician Ioana Marie 53/F LABELL [id number] Anup Pearl MD FACS SPEC NUM: [id number] RECD: 02/15/24 STATUS: KATIE QUINN NUM: [id number] CARYN: 02/14/[address]: Anup Pearl MD FACS ENTERED: 02/15/[address]: Rosa,Lab SPEC TYPE: Surgical DEPT: JEFRY TRUONG ENTERED BY: [id number] RECV BY: [id number] ORDERED: HE/2, Gross/Micro L4 ORDERED: HE2, Gross/Micro L4 Pathological Diagnosis Antral ulcer biopsy: [...] is entirely submitted in cassette A1. Specimen: [id number] Received: 02/15/24 Status: KATIE Enriquezzaira Num: [id number] Spec Type: Surgical Subm Dr: Anup Pearl MD FACS Tissues: A Esophagus Biopsy (ANTRAL ULCER BX) Procedures: SOFIA Gross/Micro L4 Patient: Ioana Marie [id number] (Continued) Specimen: [id number] Received: 02/15/24 (Continued) Signed (signature on file) Samantha Hirsch MD 02/23/24922 Specimen: [id number] Received: 02/15/24 Status: KATIE Quinn Num: [id number] Spec Type: Surgical Subm Dr: Anup Pearl MD [facility] Tissues: A Esophagus Biopsy (ANTRAL ULCER BX) Procedures: HE/2, Gross/Micro L4 Patient: Ioana Marie [id number] (Continued) Specimen: [id number] Received: 02/15/24 (Continued) Microscopic Description Microscopic examinations are performed supporting the above interpretation CPT Codes 67691 Specimen: [id number] Received: 02/15/24 Status: KATIE Quinn Num: [id number] Spec Type: Surgical Subm Dr: Anup Pearl MD FACS Tissues: A Esophagus Biopsy (ANTRAL ULCER BX) Procedures: Kehinde BLACK/Timothy L4 Patient: Ioana Marie [id number] (Continued) Signed (signature on file) Samantha Hirsch MD 02/23/24 0923[facility] Physician GroupLaboratory - Hematology and Cell countson 54-98-3830Yfyisuja granulocytes/100 WBC (Bld)0.2 %0.0-0.5FTrinity Health SystemLeukocytes [#/volume] corrected for nucleated erythrocytes in Blood by Automated counon 01-02-3928NVQ corrected for nucl RBC Auto (Bld) [#/Vol]Leukocytes [#/volume] corrected for nucleated erythrocytes in Blood by Automated coun4.0-11.0[facility] HospitalLymphocytes Auto (Bld) [#/Vol]on 53-64-2265Ifyuwlwhldk (Bld) [#/Vol]Lymphocytes [#/volume] in Blood by Automated count1.2-3.8[facility] HospitalLymphocytes/100 WBC Auto (Bld)on 06-68-5552Pqlvvsosuwj/100 WBC (Bld)Lymphocytes/100 leukocytes in Blood by Automated count20.5-60.0[facility] HospitalH Auto (RBC) [Entitic mass]on 06-86-0151FCY (RBC) [Entitic mass]MCH [Entitic mass] by Automated count26.7-34.0[facility] HospitalMCHC Auto (RBC) [Mass/Vol]on 84-81-0399LKNN (RBC) [Mass/Vol]MCHC [Mass/volume] by Automated count29.9-35.2FTrinity Health SystemMCV Auto (RBC) [Entitic vol]on 65-09-7507CQZ (RBC) [Entitic vol]MCV [Entitic volume] by Automated count 81.0-99.0[facility] HospitalMonocytes Auto (Bld) [#/Vol]on 45-19-9974Wvwvcatau (Bld) [#/Vol]Automated blood monocyte count0.3-0.8[facility] HospitalMonocytes/100 WBC Auto (Bld)on 75-67-7379Eyhkahybk/100 WBC (Bld)Automated monocyte %1.7-12.0[facility] Neutrophils Auto (Bld) [#/Vol]on 85-53-7859Daljuwrctgu (Bld) [#/Vol]Neutrophils [#/volume] in Blood by Automated count1.4-6.5FTrinity Health System Neutrophils/100 WBC Auto (Bld)on 37-37-9332Ghwoorrwlpz/100 WBC (Bld)Automated neutrophil %Low43.0-75.0[facility] HospitalNo Panel Informationon 78-19-0007Mcdtsnnxgaw # (Auto)1.2 10 3/uLHigh0.0-0.7FTrinity Health SystemImmature Granulocyte # (Auto)0.01 10 3/uL0.00-0.03[facility] HospitalPlatelet mean volume Auto (Bld) [Entitic vol]on 30-52-8950Qeurlevx mean volume (Bld) [Entitic vol]Platelet mean volume [Entitic volume] in Blood by Automated count9.5-13.5FTrinity Health SystemPlatelets Auto (Bld) [#/Vol]on 13-70-6506Mtdnzhwnv (Bld) [#/Vol]Platelets [#/volume] in Blood by Automated ptiua210-526LinfxepprCleveland Clinic Hillcrest HospitalRBC Auto (Bld) [#/Vol]on 59-46-0015MJY (Bld) [#/Vol]Erythrocytes [#/volume] in Blood by Automated count 4.20-5.40[facility]st HospitalMM TOMOSYNTHESIS SCREENING BIon 09-07[place], [place] [address] Mammography Report Signed Patient: IOANA MARIE MR#: [id number] : 1970 Acct:[id number] Age/Sex: 53 / F ADM Date: 11/20/23 Loc: MAMMO Attending Dr: Triston Velazquez D.O. Ordering Physician: Triston Velazquez D.O. Results: Date of Service: 11/20/23 Follow Up: Procedure(s): MM tomosynthesis screening BI Accession Number(s): [id number] cc: Tess Leahy M.D.; Triston Velazquez D.O. Patient Name: IOANA MARIE MR#: [id number] : 1970 Exam Date: 11/20/2023 Ordering Doctor: DR Triston Velazquez . RADIOLOGY REPORT PROCEDURE: MM TOMOSYNTHESIS [...] breast cancer at age 69. LOCATION: [facility] BREAST COMPOSITION: The breasts are extremely [...] Signed By: 11/23/23 1331 DD/ 1330 TD/TT: [employer]:TBHRadiology, Radiologist, MD - 11/23/2023 [place] [address] Mammography Report Signed Patient: IOANA MARIE MR#: [id number] : 1970 Acct:[id number] Age/Sex: 53 / F ADM Date: 11/20/23 Loc: MAMMO Attending Dr: Triston Velazquez D.O. Ordering Physician: Triston Velazquez D.O. Results: Date of Service: 11/20/23 Follow Up: Procedure(s): MM tomosynthesis screening BI Accession Number(s): [id number] cc: Tess Leahy M.D.; Triston Velazquez D.O. Patient Name: IOANA MARIE MR#: [id number] : 1970 Exam Date: 11/20/2023 Ordering Doctor: DR Triston Velazquez . RADIOLOGY REPORT PROCEDURE: MM TOMOSYNTHESIS [...] breast cancer at age 69. LOCATION: [facility] BREAST COMPOSITION: The breasts are extremely [...] Signed By: 11/23/23 1331 DD/ 1330 TD/TT: [employer]: [facility] FOR WOMENYosvany [facility]auga Medical CenterRadiology Study observation (narrative)[facility] TOMOSYNTHESIS SCREENING BIOrdered By: Radiologist Radiology on 70-58-3574TQSKCox Monett Work Phone: basophils Auto (Bld) [#/Vol]on 19-77-9148Tiyherrac (Bld) [#/Vol]0.1 10 3/uL0.0-0.1FTrinity Health SystemBasophils/100 WBC Auto (Bld)on 55-04-3834Vcttukime/100 WBC (Bld)0.8 %0.2-2.0[facility] HospitalCholesterol in LDL Calc [Mass/Vol]on 27-67-7114Tpmzwqcwkcr in LDL [Mass/Vol]88.0 mg/dLCleveland Clinic Hillcrest HospitalComment on above:<100 mg/dl BBWAABT371-505 mg/dl NEAR OR ABOVE IWWZWFB572-775 mg/dl BORDERLINE JJUK090-812 mg/dl HIGH>190 mg/dl VERY HIGHCholesterol in VLDL Calc [Mass/Vol]on 07-91-8925Xeyoivmouog in VLDL [Mass/Vol]10.2 mg/dLCleveland Clinic Hillcrest HospitalEosinophils/100 WBC Auto (Bld)on 71-81-5406Ejmyxhzrehp/100 WBC (Bld)11.7 % 0.9-7.0[facility] HospitalErythrocyte distribution width Auto (RBC) [Ratio]on 31-72-6267Iamvngbcmdf distribution width (RBC) [Ratio]12.0 % 11.0-15.0[facility] HospitalEstimated glomerular filtration rate (GFR) non- Americanon 46-72-6834WDS/1.73 sq M.predicted among non-blacks MDRD (S/P/Bld) [Vol rate/Area]mL/min/{1.73_m2}>=60[facility] HospitalGlobulin Calc (S) [Mass/Vol]on 72-15-2343Tpzgqnyw (S) [Mass/Vol]3.4 g/dL [facility] HospitalHematocrit Auto (Bld) [Volume fraction]on 59-62-1338Jyexjymwhx (Bld) [Volume fraction]39.6 %36.0-48.0[facility] HospitalHemoglobin [Mass/volume] in Bloodon 22-03-1849Kxgelmbkdb (Bld) [Mass/Vol]13.2 g/dL12.0-16.0[facility] HospitalLaboratory - Chemistry and Chemistry - challengeon 95-76-5196Yiptxrl [Mass/Vol]3.4 g/dL 3.4-5.0[facility] HospitalALP [Catalytic activity/Vol]51 U/L46-116 [facility] HospitalALT [Catalytic activity/Vol]16 U/L14-59 [facility] HospitalAST [Catalytic activity/Vol]21 U/L15-37 [facility] HospitalBilirubin [Mass/Vol]1.1 mg/dL0.2-1.0[facility] HospitalCalcium [Mass/Vol]8.7 mg/dL8.5-10.1FTrinity Health SystemChloride [Moles/Vol]103 mmol/F18-336TttbpjhekCleveland Clinic Hillcrest HospitalCholesterol [Mass/Vol]177 mg/dL<=200[facility] Cholesterol in HDL [Mass/Vol]79 mg/tH61-20RkxgjjgnxCleveland Clinic Hillcrest Hospital Comment on above:> or =60 mg/dl - LOW CARDIOVASCULAR RISK<40 mg/dl - HIGH CARDIOVASCULAR RISKCO2 [Moles/Vol]27.1 mmol/L21.0-32.0[facility] HospitalCreatinine [Mass/Vol]0.81 mg/dL0.55-1.02[facility] GFR/1.73 sq M.predicted MDRD (S/P/Bld) [Vol rate/Area]mL/min/{1.73_m2}>=60 [facility] HospitalGlucose [Mass/Vol]92 mg/aK15-013SgojsdqawCleveland Clinic Hillcrest HospitalPotassium [Moles/Vol]4.4 mmol/L3.5-5.1FTrinity Health SystemProtein [Mass/Vol]6.8 g/dL6.4-8.2FTrinity Health System Sodium [Moles/Vol]137 mmol/W206-486YknwmwqvcCleveland Clinic Hillcrest HospitalTriglyceride [Mass/Vol]51 mg/dL<=150[facility] HospitalUrea nitrogen [Mass/Vol]21.0 mg/dL7.0-18.0[facility] HospitalUrea nitrogen/Creatinine [Mass ratio]25.9 mg/mgCleveland Clinic Hillcrest Hospital Laboratory - Hematology and Cell countson 53-68-9930Uepvaydm granulocytes/100 WBC (Bld)0.2 %0.0-0.5FTrinity Health SystemLeukocytes [#/volume] corrected for nucleated erythrocytes in Blood by Automated counon 87-15-8811CDE corrected for nucl RBC Auto (Bld) [#/Vol]8.4 10 3/uL4.0-11.0[facility] HospitalLymphocytes Auto (Bld) [#/Vol]on 10-54-5245Mfavjcndrtm (Bld) [#/Vol]1.7 10 3/uL1.2-3.8[facility] HospitalLymphocytes/100 WBC Auto (Bld)on 85-62-2713Zlhbjtongmr/100 WBC (Bld)20.5 %20.5-60.0[facility] HospitalH Auto (RBC) [Entitic mass]on 51-34-2849SSJ (RBC) [Entitic mass]31.7 pg26.7-34.0[facility] HospitalMCHC Auto (RBC) [Mass/Vol]on 61-53-0510NCYH (RBC) [Mass/Vol]33.3 g/dL29.9-35.2FTrinity Health SystemMCV Auto (RBC) [Entitic vol]on 06-29-3523SFQ (RBC) [Entitic vol] 95.2 fL81.0-99.0[facility] HospitalMonocytes Auto (Bld) [#/Vol]on 28-12-9140Rycvjtqfi (Bld) [#/Vol]0.5 10 3/uL0.3-0.8[facility] HospitalMonocytes/100 WBC Auto (Bld)on 22-99-8974Sbnoxdtkz/100 WBC (Bld)5.5 % 1.7-12.0[facility] HospitalNeutrophils Auto (Bld) [#/Vol]on 04-66-2943Dcuaxalemkc (Bld) [#/Vol]5.2 10 3/uL1.4-6.5FTrinity Health SystemNeutrophils/100 WBC Auto (Bld)on 02-98-7799Kcoyvbjfsve/100 WBC (Bld)61.3 % 43.0-75.0[facility] HospitalNo Panel Informationon 11-14-2023 Eosinophils # (Auto)1.0 10 3/uL0.0-0.7FTrinity Health SystemImmature Granulocyte # (Auto)0.02 10 3/uL0.00-0.03[facility] Platelet mean volume Auto (Bld) [Entitic vol]on 53-85-4142Brqnlzrh mean volume (Bld) [Entitic vol]10.3 fL9.5-13.5FTrinity Health SystemPlatelets Auto (Bld) [#/Vol]on 24-45-1519Vjohsjrks (Bld) [#/Vol]235 10 3/eF449-768 [facility] HospitalRBC Auto (Bld) [#/Vol]on 37-93-9051FJE (Bld) [#/Vol]4.16 10 6/uL4.20-5.40[facility]iffin Hospitalerum or plasma albumin/globulin mass ratioon 27-59-8859Tigbfpw/Globulin [Mass ratio]1.0 {ratio} [facility] Hospitalerum or plasma anion gap determinationon 51-79-6408Wuazs gap [Moles/Vol]11.3 mmol/LFOhio State University Wexner Medical Centererum or plasma total cholesterol/high density lipoprotein (HDL) cholesterol mass rat on 30-97-5492Sbvlszatmem.total/Cholesterol in HDL [Mass ratio]2.2 {ratio} [facility] HospitalComment on above:3.3 - 4.4 LOW RISK4.4 - 7.1 AVERAGE RISK7.1 - 11.0 MODERATE RISK>11.0 HIGH RISKGlucose mean value [Mass/volume] in Blood Estimated from glycated hemoglobinon 03-80-5846Fuhlqlw glucose Estimated from glycated hemoglobin (Bld) [Mass/Vol]105 mg/dLCleveland Clinic Hillcrest HospitalLaboratory - Chemistry and Chemistry - challengeon 52-47-6255Gqqgmgfj [Mass/Vol]35.0 ng/mL8.0-252.0[facility] HospitalFree T4 [Mass/Vol]0.96 ng/dL0.76-1.46[facility] Glucose [Mass/Vol]88 mg/kR60-165VczalwwwfCleveland Clinic Hillcrest HospitalT4 [Mass/Vol] 7.70 ug/dL4.80-13.90[facility] HospitalTSH Qn2.126 m[IU]/L 0.358-3.740[facility] HospitalLaboratory - Hematology and Cell countson 41-42-9740LfM8y (Bld) [Mass fraction]5.3 %4.5-6.2FTrinity Health SystemComment on above:ADA RECOMMENDED LIMIT 4.0 - 6.0ADA THERAPEUTIC TARGET < 7.0ACTION SUGGESTED> 7.0No Panel Informationon 58-43-870742396426-Xyxujwj Vitamin D Total29.1 ng/mLCleveland Clinic Hillcrest HospitalComment on above:<20 ng/mL Vit D juikhapna72-<30 ng/mL Vit D yeeuwktnwvax34-842 ng/mL Vit D sufficient>100 ng/mL Potential ToxicityC-Peptide1.4 ng/mL1.1-4.4FTrinity Health SystemComment on above:C-Peptide reference interval is for fasting patients.C-Peptide reference interval is for fasting patients. Dehydroepiandrosterone Uzzyfec32.4 ug/dL41.2-243.7FTrinity Health SystemFree Cortisol, Dialysis, LCMS0.524 ug/dL.[facility] Comment on above:These tests were developed and their performancecharacteristics determined by [facility]. They have not beencleared or approved by the Food and Drug Administration.Reference Range:8 AM 0.10 - 1.204 PM 0.042 - 0.872Performed at: [facility] [address] [place] [id number] Dir fani: Shiv Padron MD, Phone: [phone] Triiodothyronine2.33 pg/mL 2.18-3.98[facility] HospitalReverse Triiodothyronine (T3)16.0 ng/dL9.2-24.1FTrinity Health SystemComment on above:This test was developed and its performance characteristicsdetermined by [facility]. It has not been cleared orapproved by the Food and Drug Administration.Performed at: [address] [id number] Director: Jennifer Ruff MD, Phone: [phone] Hormone Binding Trtmbckn439.0 nmol/L17.3-125.0 [facility] HospitalComment on above:Performed at: [address] [id number] Director: Mark Gallardo PhD, Phone: [phone] at: [address] [id number] Director: Mark Gallardo PhD, Phone: [phone] Level15 ng/dL4-50[facility] Hospitalerotonin (P) [Mass/Vol]on 97-06-0203Iktmmkfey888 ng/nB59-016DzzulwsdtCleveland Clinic Hillcrest HospitalComment on above:This test was developed and its performance characteristicsdetermined by [facility]. It has not been cleared orapproved by the Food and Drug Administration.Performed at: [address] [id number] Director: Jennifer Ruff MD, Phone: [phone] test was developed and its performance characteristicsdetermined by [employer]. It has not been cleared orapproved by the Food and Drug Administration.Performed at: [address] [id number] Director: Jennifer Ruff MD, Phone: [phone] estrone measurementon 43-27-1081Q3 [Mass/Vol]106 pg/mL.[facility] HospitalComment on above:Range Adult (Premenopausal) 27 - 231 Menstrual Cycle (1-10 days) 19 - 149 Menstrual Cycle (11-20 days) 32 - 176 Menstrual Cycle (21-30 days) 37 - 200 Adult (Postmenopausal) 0 - 125Performed at: [address] [id number] Director: Jennifer Ruff MD, Phone: [phone] or plasma estradiol (E2) measurement (mass/volume)on 46-30-5369R3 [Mass/Vol] 238.0 pg/mL.[facility] HospitalComment on above:Adult Female Range Follicular phase 12.5 - 166.0 Ovulation phase 85.8 - 498.0 Luteal phase 43.8 - 211.0 Postmenopausal <6.0 - 54.7 1st trimester 215.0 - >4300.0Roche ECLIA methodologySerum or plasma insulin measurement (units/volume)on 11-07-2023 Insulin Qn3.5 u[iU]/mL2.6-24.9[facility] HospitalComment on above: Performed at: [facility] [id number] Director: Mark Gallardo PhD, Phone: [phone] or plasma progesterone measurement (mass/volume)on 00-47-8138Varyuzagrqkc [Mass/Vol]0.5 ng/mL.[facility] HospitalComment on above:Follicular phase 0.1 - 0.9 Luteal phase 1.8 - 23.9 Ovulation phase 0.1 - 12.0 First trimester 11.0 - 44.3 Second trimester 25.4 - 83.3 Third trimester 58.7 - 214.0 Postmenopausal 0.0 - 0.1TPO Ab Qnon 74-71-2100Toxxbbh Peroxidase Awitsywbnv751 [IU]/mL0-34[facility] HospitalTestosterone Free [Mass/Vol]on 38-44-3599Sxzu Testosterone0.8 pg/mL0.0-4.2FTrinity Health SystemComment on above: Performed at: [employer] [id number] Director: Mark Gallardo PhD, Phone: [phone] at: [employer] [id number] Director: Jennifer Ruff MD, Phone: [phone] at: [facility] [id number] Director: Mark Gallardo PhD, Phone: [phone] at: [employer], [place] [id number] Director: Jennifer Ruff MD, Phone: [phone] Ab Qnon 34-23-5290Whun- Thyroglobulin Trwkoqpq711.8 [IU]/mL0.0-0.9[facility] Comment on above:Thyroglobulin Antibody measured by Radha CoulterMethodologyIt should be noted that the presence of thyroglobulinantibodies may not be pathogenic nor diagnostic, especiallyat very low levels. The assay digital media manager has found thatfour percent of individuals without evidence of thyroiddisease or autoimmunity will have positive TgAb levels upto 4 IU/mL.Performed at: [facility] [id number] Director: Mark Gallardo PhD, Phone: [phone] Antibody measured by 480 BiomedicalMethodologyIt should be noted that the presence of thyroglobulinantibodies may not be pathogenic nor diagnostic, especiallyat very low levels. The assay digital media manager has found thatfour percent of individuals without evidence of thyroiddisease or autoimmunity will have positive TgAb levels upto 4 IU/mL.Performed at: [facility] [id number] Director: Mark Gallardo PhD, Phone: [phone] Antibody measured by InvenQueryologyIt should be noted that the presence of thyroglobulinantibodies may not be pathogenic nor diagnostic, especiallyat very low levels. The assay digital media manager has found thatfour percent of individuals without evidence of thyroiddisease or autoimmunity will have positive TgAb levels upto 4 IU/mL.Performed at: [facility] [employer] [id number] Director: Mark Gallardo PhD, Phone: [phone] Thyroglobulin [Mass/volume] in Serum or Plasmaon 46-95-3332Nxqmgsutwtxxt [Mass/Vol]9.4 ng/mL.[facility] HospitalComment on above:This test was developed and its performance characteristicsdetermined by [employer]. It has not been cleared or approvedby [...] assay quantitation limit is 2.0 ng/mL.Performed at: [employer] [address] [place] [id number] Director: Samy Padron MD, Phone: [phone] ( test) IA.rapid Ql (U)on 08-15-6237HZB ( test) Ql (U)NegativeNEGATIVECleveland Clinic Hillcrest HospitalXR DEXA AXIAL SKELETONon 24-68-5218FxpFire[place], [place] [address] XRay Report Signed Patient: IOANA MARIE MR#: [id number] : 1970 Acct:[id number] Age/Sex: 52 / F ADM Date: 06/29/23 Loc: RAD Attending Dr: Triston Velazquez D.O. Ordering Physician: Triston Velazquez D.O. Date of Service: 06/29/23 Procedure(s): XR DEXA axial skeleton Accession Number(s): [id number] cc: Tess Leahy M.D.; Triston Velazquez D.O. [place] [address] Patient Name: IOANA MARIE MRN: [id number] date: 1970 Sex: F Assigned Patient Location: [facility] Current Patient Location: [facility] Accession/Order Number: [id number] Exam Date: 06/29/2023 15:00 Report Date: 06/29/2023 [...] Signed By: 06/29/23 1548 DD/ 1546 TD/TT: [employer]:TBHRadiology, Radiologist, MD - 06/29/2023 [place] [address] XRay Report Signed Patient: IOANA MARIE MR#: [id number] : 1970 Acct:[id number] Age/Sex: 52 / F ADM Date: 06/29/23 Loc: RAD Attending Dr: Triston Velazquez D.O. Ordering Physician: Triston Velazquez D.O. Date of Service: 06/29/23 Procedure(s): XR DEXA axial skeleton Accession Number(s): [id number] cc: Tess Leahy M.D.; Triston Velazquez D.O. [facility] [place] [id number] Patient Name: IOANA MARIE MRN: [id number] date: 1970 Sex: F Assigned Patient Location: [facility] Current Patient Location: [facility] Accession/Order Number: [id number] Exam Date: 06/29/2023 15:00 Report Date: 06/29/2023 [...] Signed By: 06/29/23 1548 DD/ 1546 TD/TT: [employer]: [facility]ITAL FOR WOMENYosvany HealthcareRadiology Study observation (narrative)[facility] HealthcareXR DEXA AXIAL SKELETONOrdered By: Radiologist Radiology on 76-35-4750NIII [employer] Work Phone: MG MAMM SCREEN 3D CHRISTAL CADon 02-28-2359DX MAMM SCREEN 3D CHRISTAL CADPatient: IOANA MARIE Exam Date: 11/11/2022 : 1970 Gender:F Ordering : DR TRISTON VELAZQUEZ . Admission #: [id number] Family : Order #: [id number] CLICK HERE TO VIEW EXAM RADIOLOGY REPORT [...] breast cancer at age 69. LOCATION: [facility] BREAST COMPOSITION: Extremely dense, which lowers [...] LUMP SHOULD BE BIOPSIED. Dictated by: Tylor Alamo MD on 11/11/2022 at 13:39 Approved by: Tylor Alamo MD on 11/11/2022 at 13:58NormalThe [facility] AUTO DIFFon 06-15-8986BSBC #0.1 103/ulNormal0.0-0.1The [facility] HospitalComment on above:Performed By: #### CBC #### [facility] [address] [address] [address] Edelmira HirschBasophils/100 WBC (Bld)1.0 %Normal0.2-2.0[facility] Comment on above:Performed By: #### CBC #### [facility] [address] [place] [address] Dr. Edelmira Jerez #1.0 103/ulCritically high0.0-0.7The [facility]S HospitalComment on above:Performed By: #### CBC #### [facility] [address] [place] [address] Dr. Edelmira Lauosinophils/100 WBC (Bld)13.9 %Critically high0.9-7.0The [facility] HospitalComment on above:Performed By: #### CBC #### [facility] [address] [place] [address] Dr. Edelmira Laurythrocyte distribution width (RBC) [Ratio]12.2 %Litkov51.0-15.0 [facility] Generalment on above:Performed By: #### CBC #### [facility] [address] [place] [address] Dr. Edelmira HirschHematocrit (Bld) [Volume fraction]40.5 %Hfholk83.0-48.0[facility] Medical CenterComment on above:Performed By: #### CBC #### [facility] [address] [place] [address] Dr. Edelmira HirschHemoglobin (Bld) [Mass/Vol]13.8 g/vOUeulal29.0-16.0[facility] Generalment on above:Performed By: #### CBC #### [facility] [address] [place] [address] Dr. Edelmira Almeida #0.02 10e3/ulNormal0.00-0.03The [facility] HospitalComment on above:Performed By: #### CBC #### [facility] [address] [place] [address] Dr. Edelmira Almeida %0.3 %Normal0.0-0.5The [facility] HospitalCombeaumont hospital on above: Performed By: #### CBC #### [facility] [address] [place] [address] Dr. Edelmira Stoner #1.8 103/ulNormal1.2-3.8The [facility] HospitalComment on above:Performed By: #### CBC #### [facility] [address] [place] [address] Dr. Edelmira Quigleyhocytes/100 WBC (Bld)24.6 %Sycebk82.5-60.0[facility] CenterCombeaumont hospital on above:Performed By: #### CBC #### [facility] [address] [place] [address] Dr. Edelmira Hilton DIFF REQNONormalThe [facility]S HospitalComment on above: Performed By: #### CBC #### [facility] [address] [place] [address] Dr. Edelmira Rasmussen (RBC) [Entitic mass]32.2 lbJelcdq68.7-34.0The [facility] on above:Performed By: #### CBC #### [facility] [address] [place] [address] Dr. Edelmira Mcmahon (RBC) [Mass/Vol]34.1 g/zNQdztvu77.9-35.2The [facility] Healthment on above:Performed By: #### CBC #### [facility] [address] [place] [address] Dr. Edelmira Mcmahon (RBC) [Entitic vol]94.6 gZSiyfwm23.0-99.0The [facility] Healthment on above:Performed By: #### CBC #### [facility] [address] [place] [address] Dr. Edelmira Beckford #0.5 103/ulNormal0.3-0.8The [facility] HospitalComment on above:Performed By: #### CBC #### [facility] [address] [place] [address] Dr. Edelmira Cuellarocytes/100 WBC (Bld)6.5 %Normal1.7-12.0[facility] Comment on above:Performed By: #### CBC #### [facility] [address] [place] [address] Dr. Edelmira Haq #3.8 103/ulNormal1.4-6.5The [facility] HospitalComment on above:Performed By: #### CBC #### [facility] [address] [place] [address] Dr. Edelmira Paceutrophils/100 WBC (Bld)53.7 %Rxxvpu49.0-75.0The [facility] HospitalComment on above:Performed By: #### CBC #### [facility] [address] [place] [address] Dr. Edelmira HirschPlatelet mean volume (Bld) [Entitic vol]10.0 fLNormal9.5-13.5The [facility] HospitalComment on above:Performed By: #### CBC #### [facility] [address] [place] [address] Dr. Edelmira HirschPLT276 103/rpHplssp991-095Bxi [facility] HospitalComment on above: Performed By: #### CBC #### [facility] [address] [place] [address] Dr. Edelmira HirschRBC4.28 106/ulNormal4.20-5.40The [facility] HospitalComment on above:Performed By: #### CBC #### [facility] [address] [place] [address] Dr. Edelmira HirschWBC7.1 103/ulNormal4.0-11.0The [facility]S HospitalComment on above: Performed By: #### CBC #### [facility] [address] [place] [address] Dr. Edelmira HirschGLYCOHEMOGLOBIN A1Con 48-24-1814QUB RECOMMENDATIONSEE BELOWNormal The [facility] HospitalComment on above:Result Comment: ADA RECOMMENDED LIMIT 4.0 - 6.0 ADA THERAPEUTIC TARGET < 7.0 ACTION SUGGESTED > 7.0Performed By: #### A1C #### [facility] [address] [place] [address] Dr. Edelmira HirschGlucose [Mass/Vol]100 mg/dLNoOhioHealth Berger HospitalComment on above:Performed By: #### A1C #### [facility] [address] [place] [address] [address] Edelmira HirschHbA1c (Bld) [Mass fraction]5.1 %Normal4.5-6.2The [facility] HospitalComment on above:Performed By: #### A1C #### [facility] [address] [place] [address] Dr. Edelmira SoriaID PROFILEon 50-54-0409UDWU-HDL RATIO NORMSEE BELOWVeterans Health AdministrationComment on above:Result Comment: 3.3 - 4.4 LOW RISK 4.4 - 7.1 AVERAGE RISK 7.1 - 11.0 MODERATE RISK >11.0 HIGH RISKPerformed By: #### LIPID, CMP, TSH #### [facility] [address] [place] [address] Dr. Edelmira Forrestesterol [Mass/Vol]164 mg/dLNormal<=200The [facility] Comment on above:Performed By: #### LIPID, CMP, TSH #### [facility] [address] [place] [address] Dr. Edelmira Forrestesterol in HDL [Mass/Vol]80 mg/dLCritically aqvz94-73Qvl [facility] HospitalComment on above:Performed By: #### LIPID, CMP, TSH #### [facility] [address] [place] [address] Dr. Edelmira Forrestesterol in LDL [Mass/Vol]76.8 mg/dLNoOhioHealth Berger HospitalComment on above:Performed By: #### LIPID, CMP, TSH #### [facility] [address] [place] [address] Dr. Yilan ChangCholesterol.total/Cholesterol in HDL [Mass ratio]2.1 {ratio} NormalThe [facility]'S HospitalComment on above:Performed By: #### LIPID, CMP, TSH #### [facility] [address] [place] [address] Dr. Edelmira Trievdi NORMAL> or = 60 mg/dl - LOW CARDIOVASCULAR RISK <40 mg/dl - HIGH CARDIOVASCULAR RISKVeterans Health AdministrationComment on above:Performed By: #### LIPID, CMP, TSH #### [facility] [address] [place] [address] Dr. Edelmira HirschLDL CALC NORMALSEE BELOWVeterans Health AdministrationComment on above:Result Comment: <100 mg/dl OPTIMAL 100 - 129 mg/dl NEAR OR ABOVE OPTIMAL 130 - 159 mg/dl BORDERLINE HIGH 160 - 189 mg/dl HIGH >190 mg/dl VERY HIGH Performed By: #### LIPID, CMP, TSH #### [facility] [address] [place] [address] Dr. Edelmira HirschTriglyceride [Mass/Vol]36 mg/dLNormal<=150The [facility] Comment on above:Performed By: #### LIPID, CMP, TSH #### [facility] [address] [place] [address] Dr. Edelmira WinLDL CALC7.2 mg/dLNoOhioHealth Berger HospitalComment on above: Performed By: #### LIPID, CMP, TSH #### [facility] [address] [place] [address] Dr. Edelmira HirschPRONghia 14(COMP METB)on 72-59-4418Anqbqxg [Mass/Vol]3.5 g/dLNormal 3.4-5.0[facility] Medical CenterComment on above:Performed By: #### LIPID, CMP, TSH #### [facility] [address] [place] [address] Dr. Edelmira HirschAlbumin/Globulin [Mass ratio]0.9 {ratio}NormalThe [facility]'S HospitalComment on above:Performed By: #### LIPID, CMP, TSH #### [facility] [address] [place] [address] Dr. Edelmira Phoenix [Catalytic activity/Vol]51 U/MUedwpc63-893Twr [facility] HospitalComment on above:Performed By: #### LIPID, CMP, TSH #### [facility] [address] [address] [address] Edelmira ValenciaT [Catalytic activity/Vol]23 U/FUzcjrv78-29Gxs [facility] HospitalComment on above:Performed By: #### LIPID, CMP, TSH #### [facility] [address] [address] [address] Edelmira Hobbson gap [Moles/Vol]11.2 mmol/LNormalCincinnati Children[facility]S [facility] Center Comment on above:Performed By: #### LIPID, CMP, TSH #### [facility] [address] [place] [address] Dr. Edelmira HirschAST [Catalytic activity/Vol]18 U/XAedwoe36-12Gag [facility] HospitalComment on above:Performed By: #### LIPID, CMP, TSH #### [facility] [address] [place] [address] Dr. Edelmira HirschBilirubin [Mass/Vol]0.9 mg/dLNormal0.2-1.0The [facility] Comment on above:Performed By: #### LIPID, CMP, TSH #### [facility] [address] [place] [address] Dr. Edelmira HirschCalcium [Mass/Vol]9.4 mg/dLNormal8.5-10.1[facility] Comment on above:Performed By: #### LIPID, CMP, TSH #### [facility] [address] [place] [address] Dr. Edelmira HirschChloride [Moles/Vol]104 mmol/DRrzrxh85-038Gws [facility] Comment on above:Performed By: #### LIPID, CMP, TSH #### [facility] [address] [place] [address] Dr. Edelmira HirschCO2 [Moles/Vol]29.5 mmol/UYnibgz94.0-32.0The [facility] Comment on above:Performed By: #### LIPID, CMP, TSH #### [facility] [address] [address] [address] Edelmira HirschCreatinine [Mass/Vol]0.86 mg/dLNormal0.55-1.02The [facility]S HospitalComment on above:Performed By: #### LIPID, CMP, TSH #### [facility] [address] [address] [address] Hickey ChangEGFR-AF ST LUCIAN>60Normal>=60The [facility]'S HospitalComment on above:Performed By: #### LIPID, CMP, TSH #### [facility] [address] [address] [address] Edelmira LauGFR-NON AF ST LUCIAN>60Normal>=60The [facility]S HospitalComment on above:Performed By: #### LIPID, CMP, TSH #### [facility] [address] [address] [address] Edelmira HirschGlobulin (S) [Mass/Vol]3.7 g/dLNormalThe [facility]S HospitalComment on above:Performed By: #### LIPID, CMP, TSH #### [facility] [address] [address] [address] Edelmira HirschGlucose [Mass/Vol]97 mg/dHWsxrkm37-128MdzCincinnati Children'S Hospital Medical Center Comment on above:Performed By: #### LIPID, CMP, TSH #### [facility] [address] [address] [address] Edelmira HirschPotassium [Moles/Vol]4.7 mmol/LNormal3.5-5.1The [facility] Comment on above:Performed By: #### LIPID, CMP, TSH #### [facility] [address] [address] [address] Edelmira HirschProtein [Mass/Vol]7.2 g/dLNormal6.4-8.2The [facility] Comment on above:Performed By: #### LIPID, CMP, TSH #### [facility] [address] [address] [address] Edelmira HirschSodium [Moles/Vol]140 mmol/YNamnqb743-083Shl [facility] Comment on above:Performed By: #### LIPID, CMP, TSH #### [facility] [address] [place] [address] Dr. Edelmira Daniel nitrogen [Mass/Vol]14.0 mg/dLNormal7.0-18.0[facility] Medical CenterComment on above:Performed By: #### LIPID, CMP, TSH #### [facility] [address] [place] [address] Dr. Edelmira Daniel nitrogen/Creatinine [Mass ratio]16.3 mg/mgNoOhioHealth Berger HospitalComment on above:Performed By: #### LIPID, CMP, TSH #### [facility] [address] [place] [address] Dr. Edelmira Conrad 51-50-4103VDJ3.540 uIU/mLNormal0.358-3.740The [facility]S HospitalComment on above:Performed By: #### LIPID, CMP, TSH #### [facility] [address] [place] [address] Dr. Edelmira Bashir ACOG PANEL 2: 30 to 65on 06-27-2022..NormalThe [facility]'S HospitalComment on above:Result Comment: Performed at: WBPerformed By: #### [id number] #### [facility] [address] [place] [address] Dr. Edelmira Sanders Gdln ACOG Xfqtnav58-85GddierJjbOhioHealth Berger HospitalComment on above:Performed By: #### [id number] #### [facility] [address] [place] [address] Dr. Edelmira HirschDIAGNOSIS:CommentVeterans Health AdministrationComment on above: Result Comment: NEGATIVE FOR INTRAEPITHELIAL LESION OR MALIGNANCY. Performed at: WBPerformed By: #### [id number] #### [facility] [address] [place] [address] Dr. Edelmira Altamirano AptimaNegativeNormalNegativeCincinnati Children'S Hospital Medical CenterComment on above:Result Comment: This nucleic acid amplification test detects fourteen high-risk HPV types (16,18,31,33,35,39,45,51,52,56,58,59,66,68) without differentiation. Performed at: =GPerformed By: #### [id number] #### [facility] [address] [place] [address] Dr. Edelmira HirschHPV Genotype ReflexCommentKettering Health Preble on above:Result Comment: Criteria not met, HPV Genotype not performed. Performed at: WBPerformed By: #### [id number] #### [facility] [address] [place] [address] Dr. Edelmira HirschMethodology:CommentNoMercy Health St. [facility] on above: Result Comment: This liquid based ThinPrep(R) pap test was screened with the use of an image guided system. Performed at: WBPerformed By: #### [id number] #### [address] [place] [address] [address] Edelmira HirschNote:CommentKettering Health Preble on above:Result Comment: The Pap smear is a screening test designed to aid in the detection of premalignant and malignant conditions of the uterine cervix. It is not a diagnostic procedure and should not be used as the sole means of detecting cervical cancer. Both false-positive and false-negative reports do occur. . Performed at: WBPerformed By: #### [id number] #### [facility] [address] [place] [address] Dr. Edelmira HirschPerformed by:CommentKettering Health Preble on above: Result Comment: Meghan Alamo, [employer] Driver (ASCP) Performed at: WBPerformed By: #### [id number] #### [facility] [address] [place] [address] Dr. Edelmira HirschSpecimemars adequacy:CommentKettering Health Preble on above:Result Comment: Satisfactory for evaluation. Endocervical and/or squamous metaplastic cells (endocervical component) are present. Performed at: WBPerformed By: #### [id number] #### [facility] [address] [place] [address] Dr. Edelmira Lind and Metabolite, Quant LCon 18-82-2715Anhbdkcq LC<1.0 Invalid Interpretation [facility] CenterComment on above:Result Comment: This test was developed and its performance characteristics determined by [facility]. It has not been cleared or approved by the Food and Drug Administration. Cotinine levels greater than 20.0 are consistent with the use of tobacco or tobacco cessation products. Performed At: [address] [id number] Speedy Rodriguez MD Ph:[phone] By: #### [id number], [id number], [id number], 0197106229, 58553952, 3966250 #### [facility] (DEFAULT) [address] [place] [address] 07654Vqdmborc LC<1.0Invalid Interpretation [facility] CenterComment on above:Result Comment: This test was developed and its performance characteristics determined by [facility]. It has not been cleared or approved by the Food and Drug Administration. Nicotine levels greater than 2.0 are consistent with the use of tobacco or tobacco cessation products.Performed By: #### [id number], [id number], [id number], [id number], 84227114, 8408978 #### [facility] (DEFAULT) [address] [place] [address] 25028.Auto Diff 1on 66-96-6607Qpev [place] %7 %Normal1-12[facility] Jewish HospitalComment on above:Performed By: #### [id number], [id number], 7225399834, 9947658496, 77992339, 5666376 #### [facility] (DEFAULT) [address] [place] [address] 53354Fqcx Abs#0.0 s75Hxraav5.0-0.2M[facility] HospitalComment on above:Performed By: #### [id number], [id number], 1332444140, 2537020468, 57272128, 3270985 #### [facility] (DEFAULT) [address] [place] [address] 54274Xkduktkrs/100 WBC (Bld)0.4 %Normal0.2-2.0[facility] Hospital Comment on above:Performed By: #### [id number], [id number], 5580084239, 4389133741, 64581656, 5462260 #### [facility] [address] [place] [address] 66353Kxl Abs#1.0 e87Soep9.0-0.4[facility] HospitalComment on above:Performed By: #### [id number], 7848368841, 7441073080, 2593968600, 35201477, 4039003 #### [facility] [address] [place] [address] 75371Wovbqvtfpdn/100 WBC (Bld)13.5 %High0.9-4.0[facility] HospitalComment on above:Performed By: #### [id number], 2352015281, 8591756731, 9011161084, 71628908, 5147560 #### [facility] [address] [place] [address] 73899Fpzfa Abs#2.1 a18Gcdmts9.3-2.9[facility] HospitalComment on above:Performed By: #### [id number], 0517827267, 2225577460, 3746827426, 55704017, 3941680 #### [facility] [address] [place] [address] 94890Ekzxupjetqj/100 WBC (Bld)29 %Lxpfkl35-92Jqydotum Hospital Comment on above:Performed By: #### [id number], 0528393104, 5633602422, 5022256114, 19426443, 8942237 #### [facility] [address] [place] [address] 48871Fpbf Abs#0.5 e49Rnjdwr8.0-0.8[facility] HospitalComment on above:Performed By: #### 79102545, 9045782066, 7689087075, 1611135403, 29277728, 1544096 #### [facility] (DEFAULT[facility] [address] [place] [address] 59318Sboz Abs#3.5 t28Bowmvs0.5-9.2Mprom[facility] HospitalComment on above:Performed By: #### 93853568, 9908413729, 9474746365, 0638862252, 20885416, 3328505 #### [facility] (DEFAULT) [address] [place] [address] 08142Dzvmmfwvurd/100 WBC (Bld)50 %Ygrvvp02-70Ojbhhieg Hospital Comment on above:Performed By: #### [id number], 4971404608, 7305621502, 2451237562, 38717781, 4280093 #### [facility] (DEFAULT) [address] [place] [address] 00847NGX w/ Auto Diffon 77-33-3348Ekgqjaxijyg distribution width (RBC) [Ratio]13.2 %Daemnp34.5-15.0[facility] HospitalComment on above: Performed By: #### 81908377, 1982216400, 9091378677, 0519894334, 85259644, 4729044 #### [facility] (DEFAULT) [address] [place] [address] 46426Dyzwekquoz (Bld) [Volume fraction]38.4 %Teqibv84.7-40.4 [facility] HospitalComment on above:Performed By: #### [id number], 6111037885, 7205978846, 1368954149, 01447844, 6495913 #### [facility] (DEFAULT) [address] [place] [address] 60945Gmcrwdpyqj (Bld) [Mass/Vol]12.4 g/yDXguwwj31.3-15.9 [facility] HospitalComment on above:Performed By: #### [id number], 7496856535, 3129230954, 5577823095, 63606416, 6178417 #### [facility] (DEFAULT) [address] [place] [address] 42259Afwnt WBC7.1 l71Syydltt Interpretation CodeMercy Health – The Jewish HospitalComment on above:Performed By: #### [id number], 0638714433, 0976937243, 6735871084, 27241610, 5697349 #### [facility] (DEFAULT) [address] [place], [place] [id number] Diff?AutoNormalMercy Health Clermont Hospital HospitalComment on above: Performed By: #### 84244423, 4233302368, 8275638212, 6529840097, 24306719, 2246137 #### [facility] (DEFAULT) [address] [place], [place] [address]H (RBC) [Entitic mass]30 lnCweqxi66-45Snycoxwc Hospital Comment on above:Performed By: #### 87728140, 5945148944, 9419325210, 3870990122, 85717783, 1975234 #### [facility] (DEFAULT) [address] [place], [place] [address]HC (RBC) [Mass/Vol]32 g/aNQgkknt68-04Ktdhpldc Hospital Comment on above:Performed By: #### 42593997, 7584388739, 6157083556, 9974421518, 40898399, 4317637 #### [facility] (DEFAULT) [address] [place], [place] [address]V (RBC) [Entitic vol]94 cKCmfaow46-572Xnkmaivj Hospital Comment on above:Performed By: #### [id number], 2022959187, 5348167707, 2808004405, 97247549, 4443858 #### [facility] (DEFAULT) [address] [place] [address] 08486Dqacrwlu909 t90Bpvtln295-273Iackhuqt HospitalComment on above:Performed By: #### 41962313, 6853209495, 8542215296, 8066835372, 89672264, 5938017 #### [facility] (DEFAULT) [address] [place], [place] [address]Platelet mean volume (Bld) [Entitic vol]10.3 fLHigh 6.3-10.2MMercy HealthComment on above:Performed By: #### 74929753, 5219692672, 7838091286, 2116428370, 37140549, 4603114 #### [facility] (DEFAULT) [address] [place] [address] 81521AHQ6.10 r66Zrnqzl4.70-5.30[facility] HospitalComment on above:Performed By: #### 14203050, 1891591883, 0517693108, 6748821833, 77967002, 3071064 #### [facility] (DEFAULT) [address] [place] [address] 25130QZH7.1 l87Lihhii0.5-10.5[facility] HospitalComment on above: Performed By: #### 43134840, 7890802427, 2568394576, 2402636126, 10347797, 1443105 #### [facility] (DEFAULT[facility] [address] [place] [address] 72202XBH Standardon 35-95-5684lKQN Non AA>60Invalid Interpretation [facility] CenterComment on above:Performed By: #### [id number], 7372450973, 0659905901, 0614640893, 22306519, 1239857 #### [facility] (DEFAULT) [address] [place] [address] 37826lUQT AA>60Invalid Interpretation [facility] Comment on above:Result Comment: Chronic Kidney disease could be indicated at eGFRs of less than 60 ml/min/1.73m2. Kidney Failure is indicated at less than 15 ml/min/1.06l6Ccrlaicmq By: #### 06802049, 1570618146, 2713332656, 9265341675, 41429126, 4314638 #### [facility] [address] [place] [address] 81204Nlsueoy [Mass/Vol]3.6 g/dLNormal3.5-5.0[facility] Comment on above:Performed By: #### 95969565, 3268374633, 5596795611, 1599270055, 97751111, 5618660 #### [facility] (DEFAULT) [address] [place] [address] 95912Mmmdvwr/Globulin [Mass ratio]1.1 {ratio}Low1.4-2.6[facility] HospitalComment on above:Performed By: #### 83366403, 7925102313, 5766204388, 8754932286, 13350754, 2954306 #### [facility] (DEFAULT) [address] [place] [address] 01578Acb Phos61 IU/EUqzacb35-70Khamqyar HospitalComment on above:Performed By: #### 87832339, 3864048837, 1007708556, 6941026916, 44065058, 4046381 #### [facility] (DEFAULT) [address] [place] [address] 44077WKH [Catalytic activity/Vol]14.0 U/TImqhbh43.0-54.0 [facility] HospitalComment on above:Performed By: #### 13181860, 1336890847, 8298019447, 0587953337, 84104390, 1286294 #### [facility] (DEFAULT) [address] [place] [address] 53731Uivoa gap [Moles/Vol]9.0 mmol/LNormal5.0-19.0[facility] HospitalComment on above:Performed By: #### 95363779, 9291822903, 3900351238, 7751284456, 80262683, 7398729 #### [facility] (DEFAULT) [address] [place] [address] 15728HZY [Catalytic activity/Vol]21 U/CZxsmkx58-96Zunmagpw HospitalComment on above:Performed By: #### 90851748, 4233835587, 3843136922, 0758624363, 26712489, 2202472 #### [facility] (DEFAULT) [address] [place] [address] 44088Yhue Total0.9 mg/dLNormal0.3-1.2[facility] HospitalComment on above:Performed By: #### 80931463, 6782545408, 9047736978, 2545232214, 70052216, 6465467 #### [facility] (DEFAULT) [address] [place] [address] 49696Zrwycji [Mass/Vol]8.6 mg/dLLow8.9-10.3MMercy Health Comment on above:Performed By: #### 87514315, 6761437471, 8126730491, 6758168348, 60663322, 2876690 #### [facility] (DEFAULT) [address] [place] [address] 28977Wuzgnwmx [Moles/Vol]103 mmol/YVntmzk975-233Wgzwuhqg HospitalComment on above:Performed By: #### 53901024, 9871590085, 1087195558, 9105588763, 19123322, 0290261 #### [facility] (DEFAULT) [address] [place] [address] 85548HN8 [Moles/Vol]27 mmol/CHpnsgx44-91Rkufcvga Hospital Comment on above:Performed By: #### 09367734, 4049192201, 7687664728, 7538405848, 42391984, 0780383 #### [facility] (DEFAULT) [address] [place] [address] 45448Oovwvtqojo [Mass/Vol]0.81 mg/dLNormal0.60-1.30[facility] HospitalComment on above:Performed By: #### 11165401, 4575422364, 5736506061, 6586010148, 08958053, 1254467 #### [facility] (DEFAULT) [address] [place] [address] 68164Aqkismqc (S) [Mass/Vol]3.4 g/dLNormal1.5-4.3[facility] HospitalComment on above:Performed By: #### 85614820, 9324114391, 7126908048, 9294394703, 87025462, 8444861 #### [facility] (DEFAULT) [address] [place] [address] 90512Avenkjb [Mass/Vol]89.0 mg/rVRganup75.0-118.0[facility] HospitalComment on above:Performed By: #### [id number], 2496248435, 5945939552, 7883283880, 34802714, 4321870 #### [facility] (DEFAULT) [address] [place] [address] 31061Hftjqafuvy278 mOsm/LInvalid Interpretation CodeMercy Health Clermont Hospital HospitalComment on above:Performed By: #### 57579592, 8623518380, 9150987536, 8133342052, 27243936, 8978974 #### [facility] (DEFAULT) [address] [place] [address] 38380Jgfnyfixy [Moles/Vol]4.0 mmol/LNormal3.6-5.1[facility] HospitalComment on above:Performed By: #### 20533764, 7668731486, 0683166921, 8854139186, 77171783, 6267042 #### [facility] (DEFAULT) [address] [place] [address] 51870Rxwccge [Mass/Vol]7.0 g/dLNormal6.5-8.1[facility] Hospital Comment on above:Performed By: #### 27287945, 8896370374, 3151973054, 8479005951, 96890196, 4951629 #### [facility] (DEFAULT) [address] [place] [address] 54268Hpscnv [Moles/Vol]135.0 mmol/TNuw504.0-144.0[facility] HospitalComment on above:Performed By: #### 46488798, 0930133633, 4515318748, 2610177029, 94652115, 9027930 #### [facility] (DEFAULT) [address] [place] [address] 45296Zljs nitrogen [Mass/Vol]12 mg/dLNormal8-26[facility] HospitalComment on above:Performed By: #### 14162860, 1297524512, 6581319698, 6399303023, 23926836, 3970517 #### [facility] (DEFAULT) [address] [place] [address] 95695Shad nitrogen/Creatinine [Mass ratio]15.0 mg/mgNormal 4.6-16.2[facility] HospitalComment on above:Performed By: #### 86959952, 1360372684, 3297158319, 7967850597, 93027094, 4518986 #### [facility] (DEFAULT) [address] [place] [address] 39762UbpE6d Standardon 03-30-2021.Hb14.4Invalid Interpretation [facility] HospitalComment on above:Performed By: #### 44380872, 5311274267, 2949464304, 3319318356, 15842746, 5314257 #### [facility] (DEFAULT) [address] [place] [address] 61132.Hgb A1c0.48 g/dLInvalid Interpretation CodeMercy Health Clermont Hospital HospitalComment on above:Performed By: #### 64372753, 5859163036, 3740727172, 3364931771, 34733209, 5973918 #### [facility] (DEFAULT) [address] [place] [address] 36820Euaibst [Mass/Vol]103 mg/dLInvalid Interpretation Code [facility] HospitalComment on above:Performed By: #### [id number], 9816274556, 8932255884, 6629833555, 09106619, 5353582 #### [facility] (DEFAULT) [address] [place] [address] 15300DeV0d (Bld) [Mass fraction]5.2 %Normal4.6-6.2[facility] HospitalComment on above:Performed By: #### 99356695, 5366529593, 2195904991, 1144732390, 73414624, 5640029 #### [facility] (DEFAULT) [address] [place] [address] 98127Fsybk Panel Standardon 90-43-9333Gijyflzzmzv [Mass/Vol] 171.0 mg/xZAimkdg77.0-200.0M[facility]lect [facility] HospitalComment on above:Result Comment: Desirable - Less than 200 mg/dL Borderline high risk - 200-239 mg/dL High risk - 240 mg/dL and over.Performed By: #### [id number], 7227663516, 5009545451, 5836099706, 54786227, 3721714 #### [facility] (DEFAULT) [address] [place] [address] 09036Laoxojhxydg in HDL [Mass/Vol]64 mg/yUNaemsj19-98Kfkwvsgz HospitalComment on above:Result Comment: High risk - <40 mg/dL.Performed By: #### [id number], [id number], [id number], [id number] #### [facility] (DEFAULT) [address] [place] [address] [id number] in LDL [Mass/Vol]93 mg/dLNormal1-100[facility] HospitalComment on above:Result Comment: Optimal - Less than 100 mg/dL Borderline high risk - 130-159 mg/dL High risk - 160-189 mg/dL.Performed By: #### [id number], [id number], 3711757619, 0861769745, 03731494, 9886597 #### [facility] (DEFAULT) [address] [place] [address] 10805Hujkjsrevii.total/Cholesterol in HDL [Mass ratio]2.7 {ratio}Normal0.0-4.5[facility] HospitalComment on above:Performed By: #### [id number], 0293157763, 7017883232, 8781024518, 65302028, 0925046 #### [facility] (DEFAULT) [address] [place] [address] 58337Csckiscvdtob [Mass/Vol]73.0 mg/dLNormal0.0-150.0[facility] HospitalComment on above:Performed By: #### 40982892, 5664374685, 0247855582, 6039861883, 13645251, 2033899 #### [facility] (DEFAULT) [address] [place] [address] 48857PNYU.15 mg/dLNormal5-40[facility] HospitalComment on above: Performed By: #### 98972080, 2147592861, 0885310647, 5737285571, 26000414, 4887105 #### [facility] (DEFAULT) [address] [place] [address] 52797Uvyvzgfb and Metabolite, Quant LCon 80-67-3672Pseazrqc LC <1.0Invalid Interpretation [facility] CenterComment on above:Result Comment: This test was developed and its performance characteristics determined by [facility]. It has not been cleared or approved by the Food and Drug Administration. Cotinine levels greater than 20.0 are consistent with the use of tobacco or tobacco cessation products. Performed At: [address] [id number] Speedy Rodriguez MD Ph:[phone] By: #### [id number], 6547638889, 3979451600, 2312662184, 86857966, 5033369 #### [facility] (DEFAULT) [address] [place] [address] 54376Wrpnehmu LC<1.0Invalid Interpretation [facility] HospitalComment on above:Result Comment: This test was developed and its performance characteristics determined by [facility]. It has not been cleared or approved by the Food and Drug Administration. Nicotine levels greater than 2.0 are consistent with the use of tobacco or tobacco cessation products.Performed By: #### [id number], 7585710721, 9958754436, 1450361304, 37980270, 1569290 #### [facility] (DEFAULT[facility] [address] [place] [address] 04500.Auto Diff 1on 08-35-3688Ccda [place] %8 %Normal1-12[facility] HospitalComment on above:Performed By: #### 5510488, 53449531, 6963363981, 3275567408, 2023936645, 29184244 #### [facility] (DEFAULT) [address] [place] [address] 40232Abtd Abs#0.0 m18Jduzlh8.0-0.2[facility] HospitalComment on above:Performed By: #### 8466492, 35739625, 7666677359, 1957442260, 9032770463, 12370631 #### [facility] (DEFAULT) [address] [place] [address] 71503Duvncakfe/100 WBC (Bld)0.6 %Normal0.2-2.0[facility] Comment on above:Performed By: #### 3927484, 68997639, 9380436460, 7992844021, 7976141250, 71261492 #### [facility] (DEFAULT) [address] [place] [address] 33525Qzt Abs#0.7 q39Vuto3.0-0.4[facility] HospitalComment on above:Performed By: #### 2499557, 02132539, 5698031185, 7863619366, 4257224540, 50648641 #### [facility] (DEFAULT) [address] [place] [address] 82109Iqljybjebce/100 WBC (Bld)13.1 %High0.9-4.0[facility] HospitalComment on above:Performed By: #### 8820787, 34756534, 7789205504, 1209542223, 3409547999, 61698272 #### [facility] (DEFAULT) [address] [place] [address] 18735Adwhf Abs#1.8 x07Rqtvkd2.3-2.9[facility] HospitalComment on above:Performed By: #### 4074557, 44141921, 5965522321, 0084510766, 7910993632, 46126774 #### [facility] (DEFAULT) [address] [place] [address] 84606Ytrraidtoha/100 WBC (Bld)33 %Rrdvvq54-02Pxoebutm Hospital Comment on above:Performed By: #### 7332742, 47617709, 4507794628, 7964517390, 2168427306, 19510598 #### [facility] (DEFAULT) [address] [place] [address] 79103Phbi Abs#0.4 k66Trpgwz8.0-0.8[facility] HospitalComment on above:Performed By: #### 5745460, 88687869, 1964612522, 8940770294, 1039330993, 88001106 #### [facility] (DEFAULT) [address] [place] [address] 67004Vjtw Abs#2.4 f50Jykhvk8.5-9.2[facility] HospitalComment on above:Performed By: #### 5756777, 79990987, 3566600304, 9356974788, 0541459698, 90766300 #### [facility] (DEFAULT) [address] [place] [address] 73685Qrkniehjego/100 WBC (Bld)45 %Bqvims77-12[facility] Comment on above:Performed By: #### 4876146, 20612899, 9069602114, 9780587718, 5555618455, 86590185 #### [facility] (DEFAULT) [address] [place] [address] 28988HVK w/ Auto Diffon 28-93-5013Fzhufudqhzn distribution width (RBC) [Ratio]13.4 %Oypeyp96.5-15.0[facility] HospitalComment on above: Performed By: #### 7990951, 85374744, 8979529080, 3381926402, 0991268833, 23512194 #### [facility] (DEFAULT) [address] [place] [address] 01466Xqjdfttwgv (Bld) [Volume fraction]38.4 %Ndhaxg99.7-40.4 [facility] HospitalComment on above:Performed By: #### 3446136, 56687088, 6954535345, 4619812843, 1009678692, 84055250 #### [facility] (DEFAULT) [address] [place] [address] 66831Subwzauqna (Bld) [Mass/Vol]12.6 g/eHClwoab74.3-15.9 [facility] HospitalComment on above:Performed By: #### 0331542, 81502889, 7881443132, 9890008857, 7822553394, 92914170 #### [facility] (DEFAULT) [address] [place], [place] [address]Instr WBC5.3 o97Rejbggn Interpretation CodeMercy Health – The Jewish HospitalComment on above:Performed By: #### 1660082, 28236955, 5618586881, 9662663241, 5482565593, 71794901 #### [facility] (DEFAULT) [address] [place], [place] [address]Man Diff?AutoNormalMer[facility] Health [facility] HospitalComment on above: Performed By: #### 9816535, 24195380, 6789884181, 0522721668, 1136221552, 22530182 #### [facility] (DEFAULT) [address] [place] [address] (RBC) [Entitic mass]29 rtPzuxef80-96Vujpmzoz Hospital Comment on above:Performed By: #### 2738665, 22175432, 4470309682, 0443162177, 2696184246, 37431462 #### [facility] (DEFAULT) [address] [place], [place] [address]HC (RBC) [Mass/Vol]33 g/sFWburcw13-79Jcatjybh Hospital Comment on above:Performed By: #### 9294278, 51269852, 0941987900, 0903523352, 1739258645, 29271543 #### [facility] (DEFAULT) [address] [place], [place] [address]V (RBC) [Entitic vol]89 hOKjqmpp36-194Vqdkkyzw Hospital Comment on above:Performed By: #### 2302621, 74139936, 1249369314, 0987602804, 7886427858, 65129436 #### [facility] (DEFAULT) [address] [place], [place] [address]Platelet270 b48Xdiogu483-569Udovkddr HospitalComment on above:Performed By: #### 3307453, 06432100, 7109459264, 4067914511, 3021904061, 64982073 #### [facility] (DEFAULT) [address] [place], [place] [address]Platelet mean volume (Bld) [Entitic vol]10.1 fLNormal 6.3-10.2[facility] HospitalComment on above:Performed By: #### 2726430, 46592108, 0290192342, 9216983646, 6623132690, 74402347 #### [facility] (DEFAULT) [address] [place] [address] 12553FSM9.32 o40Iiktuq9.70-5.30[facility] HospitalComment on above:Performed By: #### 8166615, 50046719, 7251472443, 5025635480, 9253651967, 23791990 #### [facility] (DEFAULT) [address] [place] [address] 20246ZSL7.3 f12Reasyk4.5-10.5[facility] HospitalComment on above: Performed By: #### 8956539, 54815551, 4315629080, 3278233315, 1042639151, 92441749 #### [facility] (DEFAULT) [address] [place] [address] 91072IHD Standardon 50-91-4312aHYZ Non AA>60Invalid Interpretation [facility] CenterComment on above:Performed By: #### 5010231, 23306829, 4948753487, 6305562040, 7402543685, 82961811 #### [facility] (DEFAULT) [address] [place] [address] 27179jHIA AA>60Invalid Interpretation [facility] Comment on above:Result Comment: Chronic Kidney disease could be indicated at eGFRs of less than 60 ml/min/1.73m2. Kidney Failure is indicated at less than 15 ml/min/1.69x5Lsiidqhri By: #### 1354219, 02998090, 7154808305, 5741524478, 3759838999, 51791303 #### [facility] (DEFAULT) [address] [place] [address] 63022Spribgp [Mass/Vol]3.8 g/dLNormal3.5-5.0[facility] Comment on above:Performed By: #### 9704130, 92449328, 4213322857, 4188190958, 3623992262, 74124562 #### [facility] (DEFAULT) [address] [place] [address] 08356Qzvoyey/Globulin [Mass ratio]1.1 {ratio}Low1.4-2.6[facility] HospitalComment on above:Performed By: #### 5742257, 95774589, 3863231160, 7505806753, 9946687406, 98524506 #### [facility] (DEFAULT) [address] [place] [address] 02444Cmy Phos40 IU/MDmcgum27-73Vbohekic HospitalComment on above:Performed By: #### 6567092, 25565955, 4774548940, 4613670992, 1748437541, 80415377 #### [facility] (DEFAULT) [address] [place] [address] 76553XHZ [Catalytic activity/Vol]13.0 U/LLow14.0-54.0[facility] HospitalComment on above:Performed By: #### 9768177, 28742249, 3312514777, 8191470901, 6407257600, 47420421 #### [facility] (DEFAULT) [address] [place] [address] 53579Nyetv gap [Moles/Vol]11.0 mmol/LNormal5.0-19.0[facility] HospitalComment on above:Performed By: #### 1127480, 69438623, 8479071364, 2091033252, 6667762836, 27654924 #### [facility] (DEFAULT) [address] [place] [address] 83602REN [Catalytic activity/Vol]19 U/LCwjnur94-82Oihurupd HospitalComment on above:Performed By: #### 5930508, 58521258, 5648029624, 3097406044, 1221270338, 36310082 #### [facility] (DEFAULT) [address] [place] [address] 32185Coox Total1.1 mg/dLNormal0.3-1.2[facility] HospitalComment on above:Performed By: #### 9707485, 14627631, 5558416612, 7914497862, 8725732120, 52075266 #### [facility] (DEFAULT) [address] [place] [address] 02136Vvmscmx [Mass/Vol]9.1 mg/dLNormal8.9-10.3MM[facility]cy Health Comment on above:Performed By: #### 9804326, 84909539, 4795656919, 0308593144, 6700521991, 45997930 #### [facility] (DEFAULT) [address] [place] [address] 07435Jhnqhhko [Moles/Vol]107 mmol/NQpaync334-219Qcrwbwdx HospitalComment on above:Performed By: #### 7267964, 30027252, 1020253319, 7714657638, 2407648467, 92937789 #### [facility] (DEFAULT) [address] [place] [address] 93789QV1 [Moles/Vol]23 mmol/JCsrkjp62-04Vfmigdwt Hospital Comment on above:Performed By: #### 2510895, 83938006, 1378720709, 7968646871, 4466938982, 56446420 #### [facility] (DEFAULT) [address] [place] [address] 55634Oybrrbtgkc [Mass/Vol]0.75 mg/dLNormal0.60-1.30[facility] HospitalComment on above:Performed By: #### 4162705, 30913529, 9269412174, 1925095419, 3027591289, 68518714 #### [facility] (DEFAULT) [address] [place] [address] 01709Gbbzwhdp (S) [Mass/Vol]3.4 g/dLNormal1.5-4.3[facility] HospitalComment on above:Performed By: #### 3599807, 30850195, 2700576093, 0671961139, 3509098286, 99000131 #### [facility] (DEFAULT) [address] [place] [address] 53295Noudygz [Mass/Vol]98.0 mg/cXSkycun22.0-118.0[facility] HospitalComment on above:Performed By: #### 0042276, 55390275, 9915651168, 0375612874, 9441488370, 79364810 #### [facility] (DEFAULT) [address] [place] [address] 26600Syfbndoief170 mOsm/LInvalid Interpretation CodeMer[facility] Health [facility] Hospital HospitalComment on above:Performed By: #### 1559061, 52816903, 3765439512, 5590249754, 3847474207, 52372109 #### [facility] (DEFAULT) [address] [place] [address] 02931Kukprlpcc [Moles/Vol]4.0 mmol/LNormal3.6-5.1[facility] HospitalComment on above:Performed By: #### 0605923, 10378065, 2732204946, 1495231955, 3005611662, 01670141 #### [facility] (DEFAULT) [address] [place] [address] 69182Xuhnjtn [Mass/Vol]7.2 g/dLNormal6.5-8.1[facility] Hospital Comment on above:Performed By: #### 4164561, 70038369, 8148609208, 3653668577, 2814169050, 65203292 #### [facility] (DEFAULT) [address] [place] [address] 96460Taspzt [Moles/Vol]137.0 mmol/VIfpbow422.0-144.0[facility] HospitalComment on above:Performed By: #### 9475223, 95734495, 3058611098, 4586002126, 7748921216, 30301452 #### [facility] (DEFAULT) [address] [place] [address] 39036Qxbo nitrogen [Mass/Vol]20 mg/dLNormal8-26[facility] HospitalComment on above:Performed By: #### 6231346, 92050576, 9385506758, 5265807795, 7607595035, 42332813 #### [facility] (DEFAULT) [address] [place] [address] 79687Fzpj nitrogen/Creatinine [Mass ratio]27.0 mg/mgHigh 4.6-16.2[facility] HospitalComment on above:Performed By: #### 0569531, 00094228, 0803810479, 8890693165, 5628429545, 94404846 #### [facility] (DEFAULT) [address] [place] [address] 08167WjpA6h Standardon 04-10-2020.Hb14.7Invalid Interpretation CodeMercy Health – The Jewish HospitalComment on above:Performed By: #### 90155521, 1781283551, 1480434129, 7543615702, 53673430, 6857513 #### [facility] (DEFAULT) [address] [place] [address] 51237.Hgb A1c0.51 g/dLInvalid Interpretation CodeMercy Health – The Jewish HospitalComment on above:Performed By: #### 19274550, 9655022222, 2089496464, 9976602625, 94383627, 3254934 #### [facility] (DEFAULT) [address] [place] [address] 72099Cnkkzwp [Mass/Vol]106 mg/dLInvalid Interpretation Code [facility] HospitalComment on above:Performed By: #### 07744910, 6622957152, 8217861377, 7956824444, 14513627, 1314160 #### [facility] (DEFAULT) [address] [place] [address] 27883YgZ6v (Bld) [Mass fraction]5.3 %Normal4.6-6.2[facility] HospitalComment on above:Performed By: #### 20140029, 4522253478, 1633832919, 7852380341, 55917675, 2340864 #### [facility] (DEFAULT) [address] [place] [address] 19893Cediy Panel Standardon 70-22-6816Khxaecxbuew [Mass/Vol] 162.0 mg/cFWofsbc93.0-200.0[facility] HospitalComment on above:Result Comment: Desirable - Less than 200 mg/dL Borderline high risk - 200-239 mg/dL High risk - 240 mg/dL and over.Performed By: #### 9565557, 14760493, 2552907666, 7491005914, 7005028145, 54976620 #### [facility]DEFAULT[facility] [address] [place] [address] 96430Iukcysytrzs in HDL [Mass/Vol]64 mg/aJKwtffp67-23Omazrmnt HospitalComment on above:Result Comment: High risk - <40 mg/dL.Performed By: #### 5873032, 35764253, 1877994644, 1885192142, 7619563125, 06483182 #### [facility] (DEFAULT) [address] [place] [address] 55303Oznthjgvnop in LDL [Mass/Vol]90 mg/dLNormal1-100[facility] HospitalComment on above:Result Comment: Optimal - Less than 100 mg/dL Borderline high risk - 130-159 mg/dL High risk - 160-189 mg/dL.Performed By: #### 9533038, 10581430, 8977094468, 6137031076, 4247149130, 00952874 #### [facility] (DEFAULT) [address] [place] [address] 02640Pugxaywyhdx.total/Cholesterol in HDL [Mass ratio]2.5 {ratio}Normal0.0-4.5[facility] HospitalComment on above:Performed By: #### 7280017, 42622035, 2149925837, 0919199534, 7650035682, 75974992 #### [facility] (DEFAULT) [address] [place] [address] 13259Bqlksnjnwtcl [Mass/Vol]38.0 mg/dLNormal0.0-150.0[facility] HospitalComment on above:Performed By: #### 7674859, 91937873, 3061949182, 7983287115, 7725003900, 83770436 #### [facility] (DEFAULT) [address] [place] [address] 97495ZLJR.8 mg/dL42 [address] StreetComment on above: Performed By: #### 7799287, 77093152, 9128716122, 5824930140, 8677727145, 59787876 #### [facility] (DEFAULT) [address] [place] [address] Vital Signs Date TimeVital SignValuePerforming EcljancdiLkfitvdl04-32-8630 15:10-0400Body yikfwe643.56 cmTess Leahy MD Work Phone: [phone]06-17-2025 15:10-0400 Body mass index (BMI) [Ratio]22.5 kg/j7WhxlwrTess Leahy MD Work Phone: [phone]06-17-2025 15:10-0400 Body soqjyq56.47 kgTess Leahy MD Work Phone: [phone] [place], [place] 2000506-17-2025 15:10-0400 Diastolic blood jyzmgudh51 mm[Hg]Tess Leahy MD Work Phone: [phone] [place], [place] 2000506-17-2025 15:10-0400 Heart rate55 /minTess Leahy MD Work Phone: [phone]06-17-2025 15:10-0400 Systolic blood wfssxevi52 mm[Hg]Tess Leahy MD Work Phone: [phone]05-12-2025 14:48-0400 Body .56 cmAnup Pearl MD Work Phone: [phone]05-12-2025 14:48-0400 Body mass index (BMI) [Ratio]22.5 kg/o7CnpzjwkAnup Pearl MD Work Phone: [phone]05-12-2025 14:48-0400 Body phjrje66.53 kgAnup Pearl MD Work Phone: [facility]05-12-2025 14:48-0400 Diastolic blood dowaliqb65 mm[Hg]Anup Pearl MD Work Phone: [facility]05-12-2025 14:48-0400 Heart rate69 /minAnup Pearl MD Work Phone: [phone]05-12-2025 14:48-0400 SaO2% (BldA) [Mass fraction]97 %Anup Pearl MD Work Phone: [phone]05-12-2025 14:48-0400 Systolic blood ihhletwj840 mm[Hg]Anup Pearl MD Work Phone: [phone]01-22-2025 14:58-0500 Body mass index (BMI) [Ratio]22.34 kg/v7Cbmmn Marcus DO Work Phone: [facility]9873 14:58-0500Body cypbli14.02 kgCorey Marcus DO Work Phone: [facility]ettRidtbmwaah00-18-2945 14:58-0500Diastolic blood yfiojxuu54 mm[Hg]Triston Marcus DO Work Phone: [facility]ettOuugfrktoo96-58-5604 14:58-0500Systolic blood qthgojsx236 mm[Hg]Triston Marcus DO Work Phone: [facility]ettHtaaetlzfo35-04-8824 14:43-0500Body .56 cmTess Leahy MD Work Phone: [facility]11-18-2024 14:43-0500 Body mass index (BMI) [Ratio]22.5 kg/d4HghvgrTess Leahy MD Work Phone: [facility]11-18-2024 14:43-0500 Body jifult84.59 kgTess Leahy MD Work Phone: [facility]11-18-2024 14:43-0500 Diastolic blood djqsviue31 mm[Hg]Tess Leahy MD Work Phone: [facility]11-18-2024 14:43-0500 Heart rate55 /minTess Leahy MD Work Phone: [facility]11-18-2024 14:43-0500 Systolic blood bfcxabys637 mm[Hg]Tess Leahy MD Work Phone: [facility]06-03-2024 15:46-0400 Body umwjpv920.56 cmMD Alis Alt-Aniket Work Phone: [facility]06-03-2024 15:46-0400 Body mass index (BMI) [Ratio]22.7 kg/m2MD Alis Alt-Aniket Work Phone: [facility]06-03-2024 15:46-0400 Body fuprhd00.04 kgMD Alis Alt-Aniket Work Phone: [facility]06-03-2024 15:46-0400 Diastolic blood jqivnbig95 mm[Hg]MD Snell Alt-Aniket Work Phone: [facility]06-03-2024 15:46-0400 Heart rate54 /minMD Alis Alt-Aniket Work Phone: [facility]06-03-2024 15:46-0400 Systolic blood mtvihhqj162 mm[Hg]MD Snell Alt-Aniket Work Phone: [facility]03-13-2024 14:03-0400 Blood Pressure LocationMichael NILL [facility]03-13-2024 14:03-0400Diastolic blood vemaifxu77 mm[Hg]Anup NILL [facility]03-13-2024 14:03-0400Heart rate 72 /minMichael NILL [facility]03-13-2024 14:03-0400 Respiratory rate16 /minMichael NILL [facility]03-13-2024 14:030400Systolic blood swvuhrjp941 mm[Hg]Anup PEARL [facility] Encounters Encounter DateEncounter TypeCare ProviderFacilityStart: 01-15-2025 End: 20-30-7822rxknfbanyvIramsl E Braun MD Work Phone: [facility] Work Phone: Start: 01-15-2025 End: 25-82-9563Mubvyipv ReferredAnup Pearl MD FACS-LAB Path Spec [facility]ospStart: 01-15-2025 End: 47-03-6292rwhjtqwmbcDatsxqn R NILLFacility:CD:[id number]: 12-04-2024 Non-patient / Non-visitTess Leahy MD-[facility] Work Phone: Start: 12-03-2024 End: 27-30-5041Vzchwxx encounter procedureTess Leahy MD-[facility] Work Phone: Start: 12-03-2024 End: 78-89-7655Hvmkgkb encounter statusTess Leahy MDMer[facility] Hospitaltart: 11-20-2024 End: 53-41-0824Vclkfrzdi Result EncounterCorey Marcus DO Work Phone: [facility] UnsolicitedStart: 11-20-2024 End: 66-13-9163Ltapkcpzp Result EncounterCorey Marcus DO Work Phone: [facility] UnsolicitedStart: 10-28-2024 End: 76-42-6540unmcrskauoNnkrspx Nill MD Work Phone: [facility] Work Phone: Start: 10-28-2024 End: 49-25-5191Ikoalzh encounter procedureAnup Pearl MD Work Phone: [facility] Work Phone: Start: 95-44-1312Mgf-patient / Non-visitAnup Pearl MD Work Phone: [facility] Work Phone: Start: 10-02-2024 End: 34-20-1672mbsdvjlyfbCahqagf R [facility] Work Phone: Start: 10-02-2024 End: 72-68-7299Owrxpsex ReferredAnup Pearl MD Work Phone: [facility] Path Spec Rosa HospStart: 76-83-4685Zld-patient / Non-visitAnup Pearl MD Work Phone: [facility] Work Phone: Start: 10-02-2024 End: 69-38-3567cjlleeizmhHwusmvx R NILLFacility:CD:[id number]: 09-24-2024 End: 52-06-5590ultnexazcaWhrycma R NILLFacility:GS BellevueStart: 07-10-2024 End: 93-49-2827Blehhpk encounter procedureCorey Marcus DO Work Phone: [facility] Work Phone: Start: 07-10-2024 End: 10-95-9711Jopljexy flow sheetCorey Marcus DO Work Phone: [facility] BCP OBComment on above:Well woman exam with routine gynecological exam; Breast cancer screening by mammogram; Hot flashesStart: 07-10-2024 End: 77-12-9467onfyocanfsSNWIW FAZIONot AvailableStart: 07-10-2024 End: 56-37-0172Xyzvxg flowsheetCorey Marcus DO Work Phone: [facility] BCP OBStart: 07-10-2024 End: 06-57-3884Cavlaa flowsheetCorey Marcus DO Work Phone: [facility] BCP OBStart: 07-10-2024 End: 85-18-8612Gonthvydq Result EncounterCorey Marcus DO Work Phone: noMS External Department UnsolicitedStart: 05-06-2024 End: 89-14-5684ijkjdbozkxJvkfpo E Braun MD Work Phone: [facility] Work Phone: Start: 05-06-2024 End: 06-70-9877Bensosc encounter procedureTess Leahy MD Work Phone: [facility] Work Phone: Start: 02-14-2024 End: 94-18-0463fqaxrqrrsvBZ Marcia E Braun Work Phone: [facility] Work Phone: Start: 02-14-2024 End: 20-25-7908Noxvsnuw ReferredMD Tess Leahy Work Phone: [facility]-LAB Path Spec [facility] HospStart: 18-70-3924Pah-patient / Non-visitTess Leahy MD Work Phone: [facility] Work Phone: Start: 01-30-2024 End: 79-23-5323qbhdtopnckPFWNYBR S WRIGHTNot AvailableStart: 11-23-2023 End: 24-98-2241Amvjcdkmu Result EncounterCorey Marcus DO Work Phone: [facility] External Department UnsolicitedStart: 11-23-2023 End: 65-96-3108Gjxmaxvdr Result EncounterCorey Marcus DO Work Phone: noms External Department UnsolicitedStart: 11-20-2023 Patient encounter statusMD Alis Alt-Aniket Work Phone: [facility] 11-20-2023 End: 32-17-5758icxocahvftQP Alis Alt-Aniket Work Phone: [facility] Work Phone: Start: 11-20-2023 End: 29-87-1183Jplugmksb for general adult medical examination without abnormal findingsMD Alis Alt-Aniket Work Phone: [facility]: 11-20-2023 End: 32-69-9397Ucmrovy encounter procedureMD Alis Alt-Aniket Work Phone: [facility] Work Phone: Start: 29-89-3969Xlw-patient / Non-visitMD Alis Alt-Aniket Work Phone: [facility] Physician [facility] Work Phone: Start: 33-57-6210Zqc-patient / Non-visitMD Alis Alt-Aniket Work Phone: [facility] Work Phone: Start: 10-11-2023 End: 07-16-8549kjeoqormwiVA Alis Alt-Ainket Work Phone: [facility] Work Phone: Start: 10-11-2023 End: 31-95-5795Iwtllbez ReferredMD Alis Alt-Aniket Work Phone: [facility]-LAB Path Spec [facility] HospStart: 39-55-6505Fxz-patient / Non-visitMD Alis Alt-Aniket Work Phone: [facility] Physician [facility] Work Phone: Start: 08-30-2023 End: 56-53-1841Eeaotmw encounter procedureMichael R NILL General Surgery Nill/Said [facility] Start: 06-29-2023 End: 21-75-1118Sjacbophl Result EncounterCorey Marcus DO Work Phone: noms External Department UnsolicitedStart: 06-29-2023 End: 59-42-0652Oboylzgvz Result EncounterCorey Marcus DO Work Phone: noms External Department UnsolicitedStart: 11-11-2022 End: 26-16-3206widlgmtpgqOS STEVE DAS .Facility:U9Ffrgq: 11-05-2022 Encounter for general adult medical examination without abnormal findingsDR TESS [facility] HospitalStart: 11-01-2022 End: 88-84-5763jxuubwfalaYJ MARCIA E BRAUNFacility:Z2Ybhjk: 11-01-2022 End: 22-90-6986Txmmekury for general adult medical examination without abnormal findingsDR TESS LEAHYFacility:J5Abrwf: 06-23-2022 End: 08-64-8224ffrtzxivbjGU STEVE DAS .Facility: Procedures DateProcedureProcedure DetailPerforming ClinicianStart: 46-99-0784OU TOMOSYNTHESIS SCREENING BICorey Marcus DO Work Phone: Start: 95-88-5063JqouwbuydrdLngne Marcus DO Work Phone: Start: 41-54-6383HXV,APTIMA HPV,AGE GDLNCorey Marcus DO Work Phone: Start: 22-85-2313Fezkodnvbgd observation [Identifier] in Cervix by Cyto stainCorey Marcus DO Work Phone: Start: 40-35-7505AI TOMOSYNTHESIS SCREENING BICorey Marcus DO Work Phone: Start: 17-24-5981NcxsujqnctuErdjv Marcus DO Work Phone: Start: 49-48-7745CE DEXA AXIAL SKELETONCorey Marcus DO Work Phone: Start: 87-37-6464Abfozczqxgn observation [Identifier] in Cervix by Cyto stainCorey Marcus DO Work Phone: Start: 29-82-1638SkylcilvalnNjslk Marcus DO Work Phone: Start: 91-90-5534DlvcccnuuwaFstkobr NILL Start: 39-20-8131UyzqmrbckcfeqdemnwfjahhrxeHzvstll NILL Start: 06-55-8392SdhjeairzviRnoqwzu NILL Start: 83-47-7122TfefutnlgpzccuxdwoybikfsttXwusrua NILL Cesarean sectionMichael NILL CholecystectomyMichael NILL Excision of ganglion of footMichael NILL Plan of Treatment DateCare ActivityDetailAuthorStart: 79-96-3955Jfnrjdoxt for malignant neoplasm of cervixNOMS HealthcareStart: 28-23-8092Hehrmpghz for malignant neoplasm of colonNOMS HealthcareStart: 23-72-6952Actevlzwe for malignant neoplasm of cervix [facility] HealthcareStart: 07-14-2025 End: 22-45-3387Mrzsijh encounter procedureNOMS BCP OBStart: 94-16-8259Waeaydwiu for malignant neoplasm of breastMammogramNOMS HealthcareStart: 07-10-2024 End: 52-76-0128Cshiqol encounter lyxeujdlv11/22/2025 2:40 PM EST Office Visit [facility] [address] [place] [id number] Triston Velazquez, DO [address] [place] [address] ArrivedNOMS [facility] OBComment on above:ArrivedStart: 07-10-2024 End: 87-66-9426BC Breast - bilateral ScreeningBilateral screening mammogram Imaging Routine Breast cancer screening by mammogram Expected: 07/10/2024, Expires: 09/07/2025[facility]ODeaconess [facility] Work Phone: comment on above:Expected: 07/10/2024, Expires: 09/07/2025Start: 49-08-8361Bsbydkltx vaccinationInfluenza Vaccine (#1)[facility] HealthcareStart: 04-81-5690Adzrdkgtf for malignant neoplasm of cervixHPV/Cotest [facility] HealthcareStart: 55-60-9834Fsfncubyp for malignant neoplasm of colonNOPershing Memorial Hospital Brain WO [facility] HospitalTHIN PREP TIS PAP AND HR HPV DNATHIN PREP TIS PAP AND HR HPV DNA Pathology and Cytology Routine Well woman exam with routine gynecological exam Ordered: 07/10/2024NONV HealthcareComment on above:Ordered: 07/10/2024 Immunizations Immunization DateImmunizationNotesCare QepmjcrrAbikfpsu35-38-2013hnhnflujg virus vaccine, unspecified formulationCorey Marcus DO Work Phone: [facility] MonettSuxyumsuiq58-68-6413wynovnpqr virus vaccine, unspecified formulationMichael NILL General Surgery Ypufzyoe94-60-2855QYNH-KsV-6 (COVID-19) Ad26 vaccine, recombinantMichael NILL 218-8938Cpsgtd-LjlsrWyandot [facility] Surgery [place] Comment on above:Result Comment: 2023-08-21: [id number] Payers DatePayer CategoryPayerPolicy [id number] Cross Blue ShieldBCBS Member Subscriber Plan / Payer (Effective 2022-Present) Name: Ioana Marie Member ID: [id number] Relation to Subscriber: Self Name: Ioana Marie Subscriber ID: [id number] PayerID: Not on file Type: Not on file Address: [facility] [id number] [place] [id number] [id number] 2..840.1.795275.3.579.2. [id number] 2..840.1.468069.3.57[id number] 2..840.1.146329.3.57[id number] 2..840.1.388562.3.57[id number] 2..840.1.560471.3.57[id number] 2..840.1.069275.3.57[id number] 2..840.1.975710.3.57[id number] 2.16.840.1.480398.3.579.2.727UnknownMMO Netk [id number] 2.16.840.1.8[id number] 2.840.1.570023.3.579.2.531 [id number] 2.840.1.712448.3.579.2.180Dsrmpshqze0503333id Social History DateTypeDetailFacilityStart: 08-30-2023 End: 88-01-8377Uijnxkk smoking statusEx-smoker (finding)General Surgery [facility] Start: 14-19-3747Lpzbavc smoking statusNeverGeneral Surgery BellevueStart: 05-31-2023 End: 22-56-1956Qzi Assigned At BirthRegency Hospital Cleveland Easttart: 28-54-6763Zuq Assigned At BirthFeGalion Community Hospitaltart: 05-06-2024 End: 62-58-8364LobMbqoop (finding)[facility] Hospitaltart: 87-74-7322Nodmnnn smoking status NHISNever smoked tobaccoNONV HealthcareStart: 06-26-2023 End: 28-99-7501Ngmpnfbpk beverage intakeCurrent drinker of alcohol (finding)[facility] HealthcareStart: 05-31-2023 End: 55-79-2632Wscniie of Social functionNOMS HealthcareStart: 91-14-3570Ahuisgz CommentOccasional alcohol useNONV HealthcareStart: 18-69-5499Hsu assigned at birthNot on fileTHE [facility] HealthcareNEGATED: [facility] Functional Status AsqrPosmeekffbBhuepzIxnyzgde99-11-2674Kwffhygyso StatusN/AGeneral Surgery [facility] Clinical Notes 02-14-2013 to 10-28-2024 Note Date & SvfmOosiJcigrnyj81-08-7253 Evaluation note* Diagnosis Onset Date Resolution Status Admit Date Contact dermatitis acuteMay 2024 2:41pmRhinitis, allergicacuteMay 2024 2:41pmContact dermatitisacuteJune 2024 3:02pmHypothyroidism, unspecifiedAugust cuteJune 2024 3:02pmWellness examinationacuteJune 2024 3:02pm [facility] Work Phone: 1(867) 363-210504-08-2025 NoteGeneral Surgery Office/Clinic Note Chief Complaint consultation [...] Substance Abuse, 08/30/2023 Tobac (more content not included)...[facility] HospitalComment on above: Result Comment: Electronically Signed By: PRESTON ROSALES, Anup Ernst\Date and Time Signed: 09/24/24 13:34 [id number] History of Present illness Narrative* Naty Graham, DERRICK BOAT LEVERMAN - 07/10/2024 2:40 PM EST Reason for [...] nursing note reviewed. Exam conducted with a well surveying engineer present. Vitals: Estimated body mass index is [...] of: Triston Velazquez DO documented in this encounterCox MonettDcvlvgbxwu60-71-7739 Evaluation note* Diagnosis Onset Date Resolution Status Hypothyroidism, unspecified February 14, 2013 [facility] Work Phone: Evaluation + Plan note No data available for this section General Surgery [facility] Evaluation noteNo assessment information available [facility] Work Phone: Evaluation note* Diagnosis Onset Date Resolution Status Admit Date Concern about memory acuteNovember 2023 2:28pmHeadacheacuteNovember 2023 2:28pm [facility] Work Phone: Evaluation note* Diagnosis Well woman exam with routine gynecological exam Routine gynecological examination Breast cancer screening by mammogram Hot flashes documented in this encounter [facility] instructions No data available for this section General Surgery [facility] Progress note No data available for this section General Surgery [facility] Reason for referral (narrative)No reason for referral information availableMercy Health [facility] Work Phone: Summary Purpose Family History No [...] section and content) DATE CREATED AUTHOR 04/04/2021 [facility] DATE CREATED AUTHOR AUTHOR'S ORGANIZ ATION 11/25/2022 [facility] DATE CREATED AUTHOR AUTHOR'S ORGANIZ ATION 07/12/2024 [facility] EPIC DATE CREATED AUTHOR AUTHOR'S ORGANIZ ATION 01/22/2025 [facility] DATE CREATED AUTHOR AUTHOR'S ORGANIZ ATION 03/28/2025 [facility] Patient Care team informatio n (unrecognized [...] tart: October 11, 2023 End: October 11, 2023MD Aranza Hiltonending ProviderActiveStart: October 11, 2023 End: October 11, 2023 Team Status: Active Member Role Status Dates Alis Beth MD Primary Care Provider Active S tart: November 07, [address] ProviderActiveStart: November 07, 2023 Team Status: Active Member Role Status Dates Tess Leahy MD Primary Care Provide r, Attending Provider Active Start: November 14, 2023 Team MemberRelationshipSpecialtyStart DateEnd Date Tess Leahy MD [address] [facility] [place] [phone] PCP - [facility]06/26/23Team MemberRelationshipSpecialtyStart DateEnd Date Tess Leahy MD [address] [facility] [place] [address] PCP - [facility]06/26/23Team MemberRelationshipSpecialtyStart DateEnd Date Tess Leahy MD [address] [facility] [place] [address] PCP - [facility]06/26/23 Team Status: Inactive Member Role Status Dates Anup Pearl MD [facility] Attending Provider Active Start: October 02, 2024 End: October 02, 2024 Team Status: Active Member Role Status Dates Tess Leahy MD Attending Provider Active St art: October 02, 2024 Team Status: Active Member Role Status Dates Anup Pearl MD [facility] Attending Provider Active Start: October 23, 2024 Team Status: Inactive Member Role Status Dates Tess Leahy MD Primary Care Provide r, Attending Provider Active Start: October 28, 2024 End: October 28, 2024Team MemberRelationshipSpecialtyStart DateEnd Date Tess Leahy MD PCP - [facility] Medicine06/26/23 Team Status: Inactive Member Role Status Dates Tess Leahy MD Primary Care Provider Active Start: October 28, 2024 End: October 28, 2024Tess Leahy MDAsamaritan north health center ProviderActiveStart: October 28, 2024 End: October 28, 2024 Team Status: Inactive Member Role Status Dates Tess Leahy MD Primary Care Provider Active Start: December 03, 2024 End: December 03, 2024Traceyford Leahy Shaina ProviderActiveStart: December 03, 2024 End: December 03, 2024 Team Status: Active Member Role Status Dates Tess Leahy MD Primary Care Provider Active Start: December 04, 2024 Tess Leahy MDAmitzidavid ProviderActiveStart: December 04, 2024 Team Status: Inactive Member Role Status Dates Anup Pearl MD [facility] Attending Provider Active Start: January 15, 2025 End: January 15, 2025Team MemberRelationshipSpecialtyStart DateEnd Date Tess Leahy MD PCP - GeneralFamily Medicine06/26/23 Goals (unrecognized section and content) Goals may [...] BE BASED ON THE PRIMARY CLINICAL RECORDS. [facility]. provides no warranty or guarantee of the accuracy or completeness of information in this document.
--- OUTSIDE RECORDS SUMMARY | 2025-04-23 06:23 | XMS_ITS | Encounter Summary ---
Author Organization [facility] Address [address] [place] [address] Care Team Providers Care Fish Pitcher Name Role Phone Tess Nunn MD Primary Care Provider [phone] Encounter Details DateTypeDepartmentCare Team (Latest Contact Info)Ufwfzgyxdmg97/06/2024linisync Result Encounter [facility] External Department Unsolicited Agapito Velazquez, DO [address] [place] [address] Social History Tobacco UseTypesPacks/DayYears UsedDateSmoking Tobacco: NeverAlcohol UseStandard Drinks/WeekCommentsYes0 (1 standard drink = 0.6 oz pure alcohol)Occasional alcohol useCommentsUnknownSex and Gender InformationValueDate Recorded Sex Assigned at BirthNot on fileLegal OhzZixufw98/15/2023 6:57 PM EDTGender IdentityNot on fileSexual OrientationNot on filedocumented as of this encounter Plan of Treatment DateTypeDepartmentCare Team (Latest Contact Info)Frahkllszvx28/26/2026 2:40 PM ESTOffice Visit NOMYosvany [facility] OBGYN [address] [place] [phone] Agapito Velazquez DO [address] [place] [address] documented as of this encounter Procedures Procedure NamePriorityDate/TimeAssociated DiagnosisCommentsMM TOMOSYNTHESIS SCREENING BI11/23/2023 1:30 PM EDT documented in this encounter Results * MM TOMOSYNTHESIS SCREENING BI (11/23/2023 1:30 PM EDT)Anatomical Region LateralityModalityOtherSpecimen (Source)Anatomical Location / Laterality Collection Method / VolumeCollection TimeReceived Time11/23/2023 1:30 PM EDT Narrative 11/23/2023 1:31 PM EDT [facility] ?[address] ? [place] [address] ? Mammography Report ? Signed ? Patient: SADE,ANATOLIY L ?MR#: [id number] ?? : 1970 ?Acct:[id number] ?? Age/Sex: 53 / F ?ADM Date: 11/20/23 ?? Loc: MAMMO ? Attending Dr: Agapito Velazquez D.O. ? Ordering Physician: Agapito Velazquez D.O. ?Results: ? Date of Service: 11/20/23 ?Follow Up: ? Procedure(s): MM tomosynthesis screening BI ?? Accession Number(s): [id number] ? cc: Tess Nunn M.D.; Agapito Velazquez D.O. ? Patient Name: ? ANATOLIY MARIE ? MR#: [id number] ? : 1970 ? Exam Date: 11/20/2023 ?? Ordering Doctor: DR Agapito Velazquez . ? RADIOLOGY REPORT ? PROCEDURE: ? MM TOMOSYNTHESIS SCREENING BI ? COMPARISON: ? MG MAMM SCREEN 3D CHRISTAL CAD, 11/11/2022. ??MG MAMM SCREEN 3D CHRISTAL ?? CAD, 11/10/2021. ??MG MAMM SCREEN 3D CHRISTAL CAD, 10/28/2020. ??MG MAMM CHRISTAL SCRN W CAD ?? DIG, 10/31/2012. ? INDICATIONS: ? Screening ? Calculator Name ? NCI Breast Cancer Risk Assessment Tool ?? 5 Year Breast Cancer Risk ? 2.10% ?? Lifetime Breast Cancer Risk ? 16.30% ?? Personal Breast Cancer ?No ?? Personal Ovarian Cancer ? No ?? Treatments ? None ?? Family Cancers ? Grandmother-paternal with breast cancer at age 70; ?? Grandmother-maternal with colon/stomach cancer at age 60; Mother with breast ?? cancer at age 68. ? LOCATION: ? [facility] ? BREAST COMPOSITION: ? The breasts are extremely dense, which lowers the ?? sensitivity of mammography. ? FINDINGS: ? DIAGNOSTIC CATEGORY 2--BENIGN FINDING: ? RIGHT BREAST: ??No significant suspicious finding. ??Scattered benign-appearing ?? calcifications are present. ??Stable, chronic 1 cm dense mass versus cyst ?? within lower-inner quadrant. ??No significant change has occurred. ? LEFT BREAST: ??No significant suspicious finding. ??Scattered benign-appearing ?? calcifications are present. ??No significant change has occurred. ? RECOMMENDATIONS: ? ROUTINE MAMMOGRAM AND CLINICAL EVALUATION IN 12 MONTHS. ? PLEASE NOTE: ??A NORMAL MAMMOGRAM DOES NOT EXCLUDE THE POSSIBILITY OF BREAST ?? CANCER. ??A CLINICALLY SUSPICIOUS PALPABLE LUMP SHOULD BE BIOPSIED. ? Dictated by: Andres Foreman M.D. on 11/23/2023 at 13:24 ? Approved by: Andres Foreman M.D. on 11/23/2023 at 13:30 ? Dictated By: ?Andres Foreman M.D. ? Signed By: ?11/23/231 ? DD/ ? TD/TT: ? Cna Pct: Procedure Note Radiology, Radiologist, MD - 11/23/[address] [address] Mammography Report Signed Patient: ANATOLIY MARIE LMR#: [id number] : 1970Acct:[id number] Age/Sex: 53 / FADM Date: 11/20/23 Loc: MAMMO Attending Dr: Agapito Velazquez D.O. Ordering Physician: Agapito Velazquez D.O.Results: Date of Service: 11/20/23Follow Up: Procedure(s): MM tomosynthesis screening BI Accession Number(s): [id number] cc: Tess Nunn M.D.; Agapito Velazquez D.O. Patient Name: ANATOLIY MARIE MR#: [id number] : 1970 Exam Date: 11/20/2023 Ordering Doctor: [...] withbreast cancer at age 69. LOCATION: [facility] BREAST COMPOSITION: The breasts are extremely dense, [...] M.D. Signed By:11/23/23 1331 DD/ 1330 TD/TT: Cna Pct: Authorizing ProviderResult TypeResult StatusCorey Marcus DOCLINISYNC IMAGINGFinal Result documented in this encounter Visit Diagnoses Not on filedocumented in this encounter Care Teams Team MemberRelationshipSpecialtyStart DateEnd Date Tess Nunn MD PCP - GeneralFamily Medicine06/26/23documented as of this encounter
--- OUTSIDE RECORDS SUMMARY | 2025-04-23 06:23 | XMS_ITS | Clinical Summary ---
Author Organization [facility] Healthcare Address [address] [facility] [place] [address] Care Team Providers Care Camera Supervisor Name Role Phone Tess Nunn MD Primary Care Provider [phone] Allergies No known active allergies Medications MedicationSigDispense QuantityRefillsLast FilledStart DateEnd DateStatus levothyroxine (Synthroid, Levoxyl) 88 MCG tablet TAKE ONE TABLET BY MOUTH IN THE MORNING ON AN EMPTY STOMACH ONCE DAILY02/13/2023 Active pantoprazole (ProtoNix) 40 MG EC tablet TAKE 1 TABLET BY MOUTH IN THE MORNING AND 1 TABLET AT CPSFEDX7604/03/2023ctive sucralfate (Carafate) 1 g tablet Take by [...] as needed for nausea. 30 tablet 5Active Encounters DateTypeDepartmentCare BlhtCkkikjxmtfc78/05/2025Refill KIMBERLY [facility] OBG[facility] [address] [place] [address] Agapito Velazquez DO Mood disorderfrom Last 3 Months Family History Medical HistoryRelationNameCommentsColon cancerMaternal GrandmotherBreast cancer MotherBreast cancerPaternal GrandmotherRelationNameStatusCommentsDaughter 1Alive Daughter 2AliveMaternal GrandmotherMotherPaternal Grandmother Social History Tobacco UseTypesPacks/DayYears UsedDateSmoking Tobacco: Never Tobacco Cessation:Counseling Given: Not Answered Alcohol UseStandard Drinks/WeekCommentsYes0 (1 standard drink = 0.6 oz pure alcohol)Occasional alcohol useCommentsUnknownSex and Gender Information ValueDate RecordedSex Assigned at BirthNot on fileLegal PfcMctupt71/15/2023 6:57 PM EDTGender IdentityNot on fileSexual OrientationNot on file Last Filed Vital Signs Vital SignReadingTime TakenCommentsBlood Hkzbrqhe518/7407/10/2024 2:58 PM EST Pulse--Temperature--Respiratory Rate--Oxygen Saturation--Inhaled Oxygen Concentration--Qdoiiv86 kg (130 lb 1.9 oz)07/10/2024 2:58 PM WIIUbyizi448.6 cm (5' 4 )06/22/2022 12:00 PM ESTBody Mass Index22.34006/22/2022 12:00 PM EST Plan of Treatment DateTypeDepartmentCare Team (Latest Contact Info)Npmqjjoqsic02/26/2026 2:40 PM ESTOffice Visit [facility] ELIZABETH [address] [place] [address] Agapito Velazquez, [address] [place], [place] [id number] Insurance Care Teams Team MemberRelationshipSpecialtyStart DateEnd Date Tess Nunn MD [facility]06/26/23
--- OUTSIDE RECORDS SUMMARY | 2025-04-23 06:23 | XMS_ITS | Clinical Summary ---
Author Organization [facility] Address [address] [place] [address] Care Team Providers Care Class A Regional Truck Driver Name Role Phone Unavailable Primary Care Provider Unavailabl e Social History Tobacco UseTypesPacks/DayYears UsedDateSmoking Tobacco: Never AssessedUT Safety & EnvironmentAnswerDate RecordedFear of Current or Ex-PartnerNot on file 08/10/2023Emotionally AbusedNot on file08/10/2023hysically AbusedNot on file 08/10/2023Sexually AbusedNot on file08/10/2023hysically or Sexually AbusedNot on file08/10/2023CommentsUnknownSex and Gender InformationValueDate RecordedSex Assigned at BirthNot on fileLegal YvbQxouza35/30/2022 12:40 AM EDT Gender IdentityNot on fileSexual OrientationNot on file Last Filed Vital Signs Vital SignReadingTime TakenCommentsBlood Jejitylv794/7010 9:46 AM EDT Pulse--Temperature--Respiratory Rate--Oxygen Hkjdybwcry14%03/19/2021 9:46 AM EDT Inhaled Oxygen Concentration--Hurzwg36.4 kg (131 lb)03/19/2021 9:43 AM EDTHeight 162.6 cm (5' 4 )03/19/2021 9:43 AM EDTBody Mass Index22.4910 9:43 AM EDT Plan of Treatment Not on file
--- OUTSIDE RECORDS SUMMARY | 2025-04-23 06:23 | XMS_ITS | Clinical Summary ---
Author Organization [employer] s [employer] Address [id number] [address] [place] [address] Care Team Providers Care Ethics Manager Name Role Phone Tess Nunn MD Primary Care Provider [phone] Allergies No known active allergies Medications MedicationSigDispense [...] ProblemNoted DateDiagnosed DateChronic superficial gastritis without bleeding 11/21/20169942Llokooofycmhnw96/05/2017 Family History Medical HistoryRelationNameCommentsStomach cancerMaternal AuntLung cancer Maternal GrandfatherCancerMaternal GrandmotherColon cancerMaternal Grandmother Stomach cancerMaternal GrandmotherBreast cancerMotherCancerMotherBreast cancer Paternal GrandmotherPancreatic cancerPaternal UncleRelationNameStatusComments FatherAliveMaternal AuntAliveMaternal GrandfatherDeceasedMaternal Grandmother DeceasedMotherAlivePaternal GrandfatherDeceasedPaternal GrandmotherDeceased Paternal UncleDeceasedSisterAlive Social History Tobacco UseTypesPacks/DayYears UsedDateSmoking Tobacco: FormerSmokeless Tobacco: NeverAlcohol UseStandard Drinks/WeekCommentsYes0 (1 standard drink = 0.6 oz pure alcohol)SOCIALChildcareAnswerDate IlpttrvpQbokxpqiiKnootjg09/11/2019Employment AnswerDate OmxxksunHbfuuycmjyWphasbc18/11/2019Purpose - LifeAnswerDate Recorded Purpose and direction in hqsrHhuuzju37/10/2021CommentsNoSex and Gender InformationValueDate RecordedSex Assigned at BirthNot on fileLegal SexFemale 01/20/2015 5:57 PM EDTGender IdentityNot on fileSexual OrientationNot on file Last Filed Vital Signs Vital SignReadingTime TakenCommentsBlood Fmrddopw468/7209 1:06 PM EDT Pulse--Csouyldrtjf84.6 ??C (97.8 ??F)03/14/2022 1:06 PM EDTRespiratory Rate-- Oxygen Saturation--Inhaled Oxygen Concentration--Uamtcm22.1 kg (130 lb 6.4 oz) 03/14/2022 1:06 PM OZLTobiqr950.8 cm (5' 4.5 )03/14/2022 1:06 PM EDTBody Mass Index22.04003/14/2022 1:06 PM EDT Plan of Treatment Health MaintenanceDue DateLast DoneCommentsDepression Xgfgeyjfy26/12/1984Tobacco Jiigghltc28/12/1984Adult BMI Kzxedxhat08/12/1990DTaP,Tdap and Td Vaccines (1 - Tdap)10/28/1990Pap Smear10/28/1992Zoster (Shingles) Vaccine (1 of 2)10/28/2021 Nyoevskmkpn76/17/202205/, 01/19/2011COVID-19 Vaccine (2 - season) Influenza Alajnba02, 04/01/2020, 03/29/2019, Additional history exists Medical Devices Not on file Procedures Procedure NamePriorityDate/TimeAssociated DiagnosisCommentsHM COLONOSCOPYRoutine 01/19/2011 from Last 3 Months or Most Recently Relevant to Health Maintenance Results * COLONOSCOPY (01/19/2011)ComponentValueRef RangeTest MethodAnalysis Time Performed AtPathologist SignatureHM ColonoscopyCOLONOSCOPYEHS EXTERNAL NON- INTERFACED REF LAB Narrative Authorizing ProviderResult TypeResult StatusScanning Provider ExternalHEALTH MAINTENANCEFinal ResultPerforming OrganizationAddressCity/State/ZIP CodePhone Number [facility] EXTERNAL NON-INTERFACED REF LAB [address] [place] [address] from Last 3 Months or Most Recently Relevant to Health Maintenance Insurance Care Teams Team MemberRelationshipSpecialtyStart DateEnd Tess Nunn MD [address] [place] [address] PCP - General07/21/17
--- OUTSIDE RECORDS SUMMARY | 2025-04-23 06:23 | XMS_ITS | Encounter Summary ---
Author Organization [facility] Address [address] [place] [address] Care Team Providers Care Vocal Music Instructor Name Role Phone Tess Nunn MD Primary Care Provider [phone] Encounter Details DateTypeDepartmentCare Team (Latest Contact Info)Xyfkyypgtyf68/11/2024Clinisync Result Encounter [facility] External Department Unsolicited Triston Velazquez, DO [address] [place], [place] [id number] Social History Tobacco UseTypesPacks/DayYears UsedDateSmoking Tobacco: NeverAlcohol UseStandard Drinks/WeekCommentsYes0 (1 standard drink = 0.6 oz pure alcohol)Occasional alcohol useCommentsUnknownSex and Gender InformationValueDate Recorded Sex Assigned at BirthNot on fileLegal SqyJvsyze54/15/2023 6:57 PM EDTGender IdentityNot on fileSexual OrientationNot on filedocumented as of this encounter Plan of Treatment DateTypeDepartmentCare Team (Latest Contact Info)Orxhzlrjopu34/26/2026 2:40 PM ESTOffice Visit [facility] [address] [place] [id number] Triston Velazquez, DO [address] [place], [place] [id number] documented as of this encounter Procedures Procedure NamePriorityDate/TimeAssociated DiagnosisCommentsXR DEXA AXIAL UOCURMIC84/11/2024 3:46 PM EST documented in this encounter Results * XR DEXA AXIAL SKELETON (06/29/2023 3:46 PM EST)Anatomical RegionLaterality ModalityOtherSpecimen (Source)Anatomical Location / LateralityCollection Method / VolumeCollection TimeReceived Time06/29/2023 3:46 PM EST Narrative 06/29/2023 3:48 PM EST [facility] ?[address] ? [place] [address] ?XRay Report ? Signed ? Patient: SEAMON,ANATOLIY L ?MR#: [id number] ?? : 1970 ?Acct:[id number] ?? Age/Sex: 52 / F ?ADM Date: 06/29/23 ?? Loc: RAD ? Attending Dr: Triston Velazquez D.O. ? Ordering Physician: Triston Velazquez D.O. ?? Date of Service: 06/29/23 ?? Procedure(s): XR DEXA axial skeleton ?? Accession Number(s): [id number] ? cc: Tess Nunn M.D.; Triston Velazquez D.O. ? [facility] ? [address] ? [place] [address] ? Patient Name: ?? ANATOLIY MARIE ? MRN: [facility]:[id number] ? date: 1970 ?Sex: F ?? Assigned Patient Location: RAD ?? Current Patient Location: RAD ?? Accession/Order Number: [id number] ?? Exam Date: 06/29/2023 ??15:00 ?Report Date: 06/29/2023 ??15:46 ? At the request of: ?? TRISTON ??MARCUS ? Procedure: ??XR DEXA axial skeleton ? EXAMINATION: XR DEXA axial skeleton, 06/29/2023 3:00 PM EST ? HISTORY: Postmenopausal State ? COMPARISON: None. ? TECHNIQUE: Dual-energy X-ray absorptiometry (DEXA) bone density study ?? performed ?? for the axial skeleton. ? HISTORY: Postmenopausal State ? FINDINGS: ? Bone mineral density AP spine L2-L4 measures 1.235 g/sq cm. Young adult T ?? score ?? 0.3. WHO classification: Normal. ? Lowest bone mineral densities the left femoral trochanter measuring 0.737 g/sq ? cm. T score -1.0. WHO classification: Normal ? XR/XR DEXA axial skeleton ?? IMPRESSION: ? Normal bone mineral density. Low fracture risk ? Electronically authenticated by: TYLOR ??JASMEET ?? Date: 06/29/2023 ??15:46 ? Dictated By: ?Tylor Alamo M.D. ? Signed By: ?06/29/23 1548 ? DD/ 1546 ? TD/TT: ? Assessment Nurse Practitioner: Procedure Note Radiology, Radiologist, - 06/29/[address] [address] XRay Report Signed Patient: ANATOLIY MARIE LMR#: [id number] : 1970Acct:[id number] Age/Sex: 52 / FADM Date: 06/29/23 Loc: RAD Attending Dr: Triston Velazquez D.O. Ordering Physician: Triston Velazquez D.O. Date of Service: 06/29/23 Procedure(s): XR DEXA axial skeleton Accession Number(s): [id number] cc: Tess Nunn M.D.; Triston Velazquez D.O. The [address] [address] Patient Name: ANATOLIY MARIE MRN: [id number] date: 1970 Sex: F Assigned Patient Location: [facility] Current Patient Location: [facility] Accession/Order Number: [id number] Exam Date: 06/29/2023 15:00 Report Date: 06/29/2023 [...] M.D. Signed By:06/29/23 1548 DD/ 1546 TD/TT: Assessment Nurse Practitioner: Authorizing ProviderResult TypeResult StatusCorey Marcus DOCLINISYNC IMAGINGFinal Result documented in this encounter Visit Diagnoses Not on filedocumented in this encounter Care Teams Team MemberRelationshipSpecialtyStart DateEnd Date Tess Nunn MD PCP - GeneralFamily Medicine06/26/23documented as of this encounter
--- OUTSIDE RECORDS SUMMARY | 2025-04-23 06:23 | XMS_ITS | Encounter Summary ---
Author Organization [facility] Address [address] [facility] [place] [address] Care Team Providers Care Wafer Slicer Name Role Phone Tess Nunn MD Primary Care Provider [phone] Reason for Visit * ReasonCommentsMed Refill Encounter Details DateTypeDeNovant Health [facility] Team (Latest Contact Info)Xtzeeslgzuv27/05/2025Refill [facility] [address] [phone] Agapito Velazquez DO [address] [place], [place] [address] Mood disorder Social History Tobacco UseTypesPacks/DayYears UsedDateSmoking Tobacco: NeverAlcohol UseStandard Drinks/WeekCommentsYes0 (1 standard drink = 0.6 oz pure alcohol)Occasional alcohol useCommentsUnknownSex and Gender InformationValueDate Recorded Sex Assigned at BirthNot on fileLegal WseWaejaa80/15/2023 6:57 PM EDTGender IdentityNot on fileSexual OrientationNot on filedocumented as of this encounter Plan of Treatment DateTypeDeparthurley medical centerCare Team (Latest Contact Info)Gejzvetlgrt45/26/2026 2:40 PM ESTOffice Visit [facility] ELIZABETH [address] [address] Agapito Velazquez DO [address], [facility] documented as of this encounter Visit Diagnoses Diagnosis Mood disorder Unspecified episodic mood disorder documented in this encounter Care Teams Team MemberRelationshipSpecialtyStart DateEnd Date Tess Nunn MD PCP - GeneralFamily Medicine06/26/23documented as of this encounter
[2025-04-23 06:30] VITALS: BP 134/82; PULSE 83; TEMP 36.3; O2SAT 99; BMI 22.4
[2025-04-23 07:38] VITALS: BP 103/69; PULSE 76; TEMP 36.1; O2SAT 97
[2025-04-23 07:53] VITALS: BP 90/51; PULSE 74; O2SAT 98
[2025-04-23 08:08] VITALS: BP 111/68; PULSE 70; O2SAT 100
== END 2025-04-23 08:18 | disposition home or self-care (01) ==
LOC: SURGOUT 06:19
PROVIDERS: PCP Family Medicine; Visit Provider Surgery
PROC: (CPT 731; principal; 2025-04-23 07:30)
DX: K25.3 Acute gastric ulcer without hemorrhage or perforation (principal); K29.70 Gastritis, unspecified, without bleeding; K44.9 Diaphragmatic hernia without obstruction or gangrene; Z87.11 Personal history of peptic ulcer disease; E03.9 Hypothyroidism, unspecified; Z90.49 Acquired absence of other specified parts of digestive tract; Z87.891 Personal history of nicotine dependence; K21.9 Gastro-esophageal reflux disease without esophagitis
CPT/HCPCS: 43239; J2704

== ENCOUNTER 2025-05-03 08:35 | Outpatient (OUT) | payer BC, SELFPAY ==
--- OUTSIDE RECORDS SUMMARY | 2025-04-23 19:39 | XMS_ITS | Continuity of Care Document ---
Author Organization [facility] Address [address] [place] [address] Phone Care Team Providers Care Dish Carrier Name Role Phone Anup Pearl MD Attending Provider Care Teams Patient Care Team Team Status: Inactive Member Role/Relationship Status Dates Anup Pearl MD FACS Attending Provider Active Start: April 23, 2025 End: April 23, 2025 Chief Complaint and Reason for Visit Chief Complaint Admit Date Unknown April 23, 2025 7 :36am Allergies, Adverse Reactions, Alerts Allergen Type Severity Reaction Last Updated Verified Status No Known Allergies Allergy Unknown December 03, 2024 2:12pmYesActive Social History Smoking Status Status Start Date End Date Date of Observa tion Ex-smoker (finding) November 20, 2023 3:51pm Observation Status Observation Response Date of Response Legal Sex Female (finding) Sex Assigned At BirthFemaleMay 1970 Problems Active Problems Problem Diagnosis/Recorded Date Onset Date Stat us Wellness examination November 20, 2023 3:05pm Unknown Active Headache May 06, 2024 2:58pm Unknown A ctive Hypothyroidism, unspecified November 17, 2023 1:58pm Augu st 2012 Active Rhinitis, allergic October 28, 2024 3:36pm Unknown Active Contact dermatitis October 28, 2024 3:36pm Unknown Active Inactive/Resolved Problems Problem Diagnosis/Recorded Date Onset Date Stat us Concern about memory May 06, 2024 2:58pm Unknow n Resolved Medications Medication Status Dose Units Route Directions Qty Days Refills S tart Date Stop Date End Date Reason(s) Instructions Adherence Levothyroxine 88 mcg tablet Discontinued 0 .ROUTE.WISRTWQ456Aabh 2023 9:41amMay 2024 11:27amTAKE 1 TABLET BY MOUTH IN THE MORNING ON AN EMPTY STOMACH ONCE DAILYAmoxicillin-Pot Clavulanate 875-125 mg rpvwnjOvllcjwnduzw9KKYIFXgddy yvunb022Zmplchfk 2023 12:00amMay 2024 1:56pmLevothyroxine 88 mcg tabletDiscontinued0.ROUTE.RBFSDIZ172Pbr 2024 11:27amJune 2024 11:06amTAKE 1 TABLET BY MOUTH IN THE MORNING ON AN EMPTY STOMACH ONCE DAILYLevothyroxine 100 mcg tabletActive0.ROUTE.COMPLEX 903Jun2024 11:06amTAKE 1 TABLET BY MOUTH IN THE MORNING ON AN EMPTY STOMACH ONCE DAILYUnknownLevothyroxine 88 mcg bnxwgbmBpfyjzitoond57WYLMWDxwdhOfy 2023 11:00pmJuly 2023 9:41amPantoprazole (Protonix) 40 mg tablet,delayed release (DR/EC)Asyndv04AADXTlqap dailyJun2023 11:00pm UnknownSucralfate (Carafate) 1 gram ppmdjeIxmuop0RINX0m/Day before mealsJun2023 11:00pmUnknown Advance Directives Advance Directive Response Recorded Date/ Time Advance Directives No November 19 2:25pm Insurance Providers Guarantor Ioana Marie Address [address] [place] [address] [place] [id number] Info.Home Phone: Payer Group Member ID Coverage Type Subscriber Relationship to Subscriber Effective Date Expiration Date O [employer] [address] [address] [facility] [address] Work Phone: [phone] Encounters Encounter Location(s) Arrival/Admit Date Discharge/Departure Date Discharge/Departure Disposition Provider(s) Departed Referred -LAB Path Spec Rosa Sapp April 23, 2025 7:36am April 23, 2025 7:37am Discharged to home care or self care (routine discharge) Anup Pearl MD FACS Plan of Treatment Future Tests Future scheduled test information is unavailable Pending Tests Test Name Ordered Date Scheduled Date Miscellaneous Pathology Test April 23, 2025 7:36am Future Visits Future appointment information is unavailable Future Procedures Procedure Name Ordered Date Scheduled Date Pathology Request for Lab Melodie April 23 2:42pm April 23, 2025 7:36am Future Medications Future medication information is unavailable Patient Instructions Patient instructions are unavailable
--- NOTE | 2025-05-03 08:38 | US_ITS ---
The [address] [address] Patient Name: ANATOLIY STUART MRN: [id number] date: 1970 Sex: F Assigned Patient Location: Current Patient Location: Accession/Order Number: [id number] Exam Date: 05/03/2025 08:40 Report Date: 05/05/2025 08:32 At the request of: ARCHANA JOHNSTON MD Procedure: US right upper quadrant LIMITED RIGHT UPPER QUADRANT ABDOMINAL ULTRASOUND CLINICAL HISTORY: EPIGASTRIC PAIN R10.13. Prior cholecystectomy . COMPARISON: CT 10/21/2024 The gallbladder is surgically absent. No intra- or extrahepatic biliary dilatation is evident. The common duct is still borderline in caliber measuring 5-6 mm. There are no filling defects within the imaged segment to suggest choledocholithiasis. This probably located to previous surgery. The liver is normal in echogenicity. No intrahepatic masses are seen. There is appropriate hepatopetal flow within the main portal vein. The pancreas shows no significant sonographic abnormality. Cursory evaluation of the right kidney reveals no hydronephrosis or fluid within Davis's pouch. US/US right upper quadrant IMPRESSION: NEGATIVE POST CHOLECYSTECTOMY ULTRASOUND OF THE RIGHT UPPER QUADRANT. Impression dictated by: Naty Degroot M.D. 05/05/2025 8:32 AM Dictation Location: [place] [address] Electronically authenticated by: [id number] Y Date: 05/05/2025 08:32
--- OUTSIDE RECORDS SUMMARY | 2025-05-03 08:38 | XMS_ITS | CCD ---
Author Organization [facility] Care Team Providers Care Photoengraving Proofer Apprentice Name Role Phone PIPPA ., DR WILSON Admitting Unavailabl e KARCHIP ., DR WILSON Consulting Unavailklaus e PIPPA ., DR WILSON Attending Unavailklaus e ARMOND, DR TESS Pickard Primary Care Unavailable JASMEET, DR TYLOR Whitney Consulting Unavailable ARMOND, DR TESS Pickard Consulting Unavailable ARMOND, DR TESS Pickard Attending Unavailable ARMOND, DR TESS Pickard Admitting Unavailable ARMOND, DR TESS Pickard Primary Care Unavailable PIPPA ., DR WILSON Admitting Unavailabl e KARCHIP ., DR WILSON Consulting Unavailabl e KARASIKatalina ., DR WILSON Attending Unavailklaus e ARMOND, DR TESS Pickard Primary Care Unavailable TESS LEAHY Primary Care Physician [phone] MD Alis Beth Primary Care Provider MD Anup Pearl Attending Provider [phone] MD Tess Leahy Primary Care Provider MD Anup Pearl Attending Provider Tess Leahy MD Primary Care Provider [phone] Anup Pearl MD Attending Provider [phone] Tess Leahy MD Primary Care Provider TRISTON VELAZQUEZ Attending Unavailable GUILHERME ROMO Attending Unavailable Anup Pearl MD Attending Provider Tess Leahy MD Primary Care Provider Anup Pearl MD Attending Provider Tess Leahy MD Primary Care Provider Tess Leahy MD Attending Provider Anup Pearl MD Attending Provider KATHARINEL, Anup Frias Attending Unavailable NILL, Anup Frias Attending Unavailable NILL, Anup Frias Attending Unavailable NILL, Anup Frias Attending Unavailable Nill, Anup Frias Admitting Unavailable Nill, Anup Frias Attending Unavailable Nill, Anup Frias Attending Unavailable Nill, Anup Frias Admitting Unavailable Nill, Anup Frias Attending Unavailable Nill, Anup Frias Admitting Unavailable Allergies Allergy ClassificationReported Allergen(s)Allergy TypeDate of OnsetReaction(s) Facility (1 source)No Known Medication Allergies; Translations: [No Known Medication Allergies]Propensity to adverse reactions (disorder)[facility] Medications Current Medications MedicationDrug Class(es)DatesSig (Normalized)Sig (Original)estradiol 0.5 mg oral tablet (3 sources)EstrogenStart: 11-14-7356cyrc 1 tablet by mouth once dailyestradiol (Estrace) 0.5 MG tablet Indications: Hormone disorder Take 1 tablet (0.5 mg) by mouth Daily Take 1 tablet by mouth for 30 days 30 tablet 11 08/12/2024 Active Start: 07-10-2024 End: 85-51-8714auvf 1 tablet by mouth once dailyestradiol (Estrace) 0.5 MG tablet Indications: Hot flashes Take 1 tablet (0.5 mg) by mouth Daily Take 1 tablet by mouth for 30 days 30 tablet 11 07/10/2024 07/10/2024 Discontinued (Ineffective)estrogens, conjugated (jail) 0.3 mg oral tablet (4 sources)EstrogenStart: 07-10-2024 End: 11-65-0194gjcy 1 tablet by mouth once daily, then take 1 tablet by mouth once dailyestrogens, conjugated, (Premarin) 0.3 MG tablet Indications: Hot flashes Take 1 tablet (0.3 mg) by mouth Daily Take 1 tablet daily by mouth for 30 days 30 tablet 3 07/10/2024 Activelevothyroxine sodium 0.1 mg oral tablet (20 sources)l-ThyroxineStart: 19-24-5309nceq 1 tablet by mouth once daily in the morningStart: 01-09-2024 End: 55-57-9504jhsn 1 tablet by mouth once daily in the morningLevothyroxine 88 mcg tablet Discontinued 0 .ROUTE .COMPLEX 90 3 November 04, 2024 11:27am December 06, 2024 11:06am TAKE 1 TABLET BY MOUTH IN THE MORNING ON AN EMPTY STOMACH ONCE DAILYStart: 11-07-2023 End: 14-27-0243exls 1 capsule by mouth once dailyLevothyroxine 88 mcg capsule Discontinued 88 MCG PO Daily November 06, 2023 11:00pm January 09, 2024 9:41amStart: 15-70-4217cmsk 1 tablet by mouth once dailySynthroid 88 mcg Tab 88 mcg = 1 tab(s), Oral, Daily, Refills(s) 0 Start Date: 08/30/23 Status: OrderedStart: 40-63-3799cdug 1 tablet by mouth once daily in the morninglevothyroxine (Synthroid, Levoxyl) 88 MCG tablet TAKE ONE TABLET BY MOUTH IN THE MORNING ON AN EMPTY STOMACH ONCE DAILY 02/13/2023 ActiveMulti Vitamins oral tablet (1 source)Start: 95-11-9007ghhz 1 tablet by mouth once dailyMulti Vitamins oral tablet 1 tab(s), Oral, Daily, Refill(s) 0 Start Date: 08/30/23 Status: Ordered pantoprazole 40 mg delayed release oral tablet (15 sources)Proton Pump InhibitorStart: 31-00-1944xkqt 1 tablet by mouth once dailyProtonix 20 mg Tab-DR 20 mg = 1 tab(s), Oral, Daily, Refills(s) 0 Start Date: 08/30/23 Status: OrderedStart: 53-40-6285tylw 1 tablet by mouth twice daily sucralfate 1000 mg oral tablet (14 sources)Aluminum ComplexStart: 50-94-8749nuvz 1 tablet by mouth once before mealtimesucralfate (Carafate) 1 g tablet Take by mouth 4 (four) times a day before meals Active Completed/Discontinued Medications MedicationDrug Class(es)DatesSig (Normalized)Sig (Original)amoxicillin 875 mg / clavulanate 125 mg oral tablet (4 sources)Penicillin-class AntibacterialStart: 05-15-2024 End: 09-10-3752idqs 1 tablet by mouth twice dailyAmoxicillin-Pot Clavulanate 875-125 mg tablet Discontinued 1 TAB PO Twice daily April 12:00am October 28, 2024 1:56pm Problems Active Problems Problem ClassificationProblemDateDocumented DateEpisodic/ChronicAbdominal pain (2 sources)Epigastric pain; Translations: [Epigastric pain]Onset: 08-30-2023 EpisodicAdministrative/social admission (6 sources)Memory finding; Translations: [Person with feared health complaint in whom no diagnosis is made]93-70-5491KznnangpEsfhtrqz reactions (4 sources)Contact dermatitis; Translations: [Unspecified contact dermatitis, unspecified cause]08-82-7546SkjftvgdQbfbebvvwheyzs and diverticulitis (1 source)Diverticular tvnzjuf57-54-2897JxlszuoHpiebsworv disorders (2 sources)Gastroesophageal reflux disease without esophagitis; Translations: [Gastro-esophageal reflux disease without esophagitis]Onset: 89-87-3128Ramkyrw Gastroduodenal ulcer (except hemorrhage) (2 sources)H/O: peptic ulcer; Translations: [Personal history of peptic ulcer disease]Onset: 55-40-9653GrxocqugXyzfzduj; including migraine (6 sources)Headache; Translations: [Headache]77-28-9236NyagxzcxYqred gastrointestinal disorders (1 source)History of zzcuzfjun34-31-9396WqqbotclAjyql screening for suspected conditions (not mental disorders or infectious disease) (10 sources)Encounter for screening mammogram for malignant neoplasm of breast; Translations: [Encounter for screening for malignant neoplasm of cervix]Onset: 05-87-1352HsmeyjrnIhcbh upper respiratory disease (3 sources)Allergic rhinitis; Translations: [Allergic rhinitis, unspecified] 30-13-2128XmjecwhIwfhmtru codes; unclassified (1 source)Family history of malignant neoplasm of breast; Translations: [FAMILY HX MALIG NEOPLASM OF BREAST]Onset: 38-54-9498UnpymxmsRqtlphjj codes; unclassified (1 source)Family history of malignant neoplasm of digestive organs; Translations: [FAM HX MALIG NEOPLASM DIGESTIV ORGN]Onset: 94-82-0162Twlyidqa Residual codes; unclassified (2 sources)Flushing; Translations: [Flushing]41-72-4733AvhdmwvlTqasrea disorders (11 sources)Hypothyroidism; Translations: [Hypothyroidism, unspecified]Onset: 158626-29-4914WwvkdzyEndahyuzqemo (1 source)Body mass index 20-24 - lngito05-75-2299 Past or Other Problems Problem ClassificationProblemDateDocumented DateEpisodic/ChronicImmunizations and screening for infectious disease (1 source)Encounter for screening for human papillomavirus (HPV); Translations: [ENC SCREENING HUMAN PAPILLOMAVIRUS]Onset: 14-41-9383Wqsodigo Results Test NameValueInterpretationReference RangeFacilityPathology Request for Lab Corpon 98-60-9781Opxusdwuv Request for Lab CorpNormalThSt. Joseph Regional Medical Center Physician GroupComment on above:Result Comment: See report. Scanned copy available in EMR. PERFORMED BY: [place] [address] PATHOLOGIST GIN INSPECTOR RM CHAUDHRY M.D.Performed By: #### [facility] TO [facility] #### [address] 02-74-4655MwjcmzvdxWgybwoehf From: Taryn Acuna LPN To: N - Clinical; Sent: 01/24/2025 15:43:28 EDT Show up: 03/26/2025 07:00:00 EDT Subject: EGD recall Due Date/Time: 04/17/2025 07:00:00 EDT Reminder/Recall Patient due for EGD 04/17/2025 to monitor gastric ulcer. Left voice mail message to call back to discuss. EGD [facility] for 04/23/25.[facility]L Specimen: [id number] Received: 01/15/25 Status: KATIE Quinn Num: [id number] Spec Type: Surgical Subm Dr: Anup Pearl MD FACS Tissues: A Gastric Biopsy (ANTRAL ULCER BX) B Gastric Biopsy (GASTRIC BODY BX) Procedures: HE/4, Gross/Micro L4/2, H PYLORI/2, IHC First AB/2 Age/ Patient Sex Location Account Attending Physician Ioana Marie 54/F LABE[facility] [id number] Anup Pearl MD FACS SPEC NUM: [id number] RECD: 01/15/25 STATUS: KATIE QUINN NUM: [id number] CARYN: 01/15/[address] [facility] [address]: Anup Pearl MD FACS ENTERED: 01/15/[address]: Prerna Lee SPEC TYPE: Surgical DEPT: JEFRY TRUONG ENTERED BY: [id number] RECV BY: [id number] ORDERED: HE/4, Gross/Micro L4/2, H PYLORI/2, IHC [...] submitted in a single cassette. (1, ns, [id number] A) JG Part B is received in formalin labeled with the patients name, date of , and gastric body BX are two powell-loza, focally erythematous, friable, 0.3 cm each in greatest dimension tissue bits. The specimen is entirely submitted in a single cassette. (1, ns, [id number] B) JG Specimen: [id number] Received: 01/15/25 Status: KATIE Quinn Num: [id number] Spec Type: Surgical Subm Dr: Anup Pearl MD FACS Tissues: A Gastric Biopsy (ANTRAL ULCER BX) B Gastric Biopsy (GASTRIC BODY BX) Procedures: HE/4, Gross/Micro L4/2, H PYLORI/2, IHC First AB/2 Patient: Ioana Marie [id number] (Continued) Specimen: [id number] Received: 01/15/25 (Continued) Signed (signature on file) Micah Sahni MD 01/17/25 1406 Specimen: [id number] Received: 01/15/25 Status: KATIE Quinn Num: [id number] Spec Type: Surgical Subm Dr: Anup Pearl MD FACS Tissues: A Gastric Biopsy (ANTRAL ULCER BX) B Gastric Biopsy (GASTRIC BODY BX) Procedures: HE/4, Gross/Micro L4/2, H PYLORI/2, IHC First AB/2 Patient: Ioana Marie [id number] (Continued) Specimen: [id number] Received: 01/15/25 (Continued) Microscopic Description A B: Microscopic examination is performed. CPT Codes 77316 x2, 27804 x2 Specimen: [id number] Received: 01/15/25 Status: KATIE Quinn Num: [id number] Spec Type: Surgical Subm Dr: Anup Pearl MD FACS Tissues: A Gastric Biopsy (ANTRAL ULCER BX) B Gastric Biopsy (GASTRIC BODY BX) Procedures: HE/4, Gross/Micro L4/2, H PYLORI/2, IHC First AB/2 Patient: Ioana Marie [id number] (Continued) Signed (signature on file) Micah Sahni MD 01/17/25 1406Normal [facility] Phys[facility] GroupFormerly [facility] 73-72-8181VqbjiwcqpIymsdfwwl From: Taryn Acuna LPN To: N - [...] for 01/15/25 for egd , [facility]cert [facility]Lancaster [facility] HospitalBasophils Auto (Bld) [#/Vol]Ordered By: Tess Leahy on 12-04-2024 Basophils (Bld) [#/Vol]0.1 10 3/uL0.0-0.1FFairfield Medical Center Basophils/100 WBC Auto (Bld)Ordered By: Tess Leahy on 15-89-6482Pnsacgimq/100 WBC (Bld)0.9 %0.2-2.0[facility] GlenbeighEosinophils/100 WBC Auto (Bld)Ordered By: Tess Leahy on 15-56-0353Izsynmemkfo/100 WBC (Bld)13.4 %High 0.9-7.0[facility] GlenbeighErythrocyte distribution width Auto (RBC) [Ratio]Ordered By: Tess Leahy on 85-21-4596Zxfrapqipoo distribution width (RBC) [Ratio]12.0 %11.0-15.0[facility] GlenbeighEstimated glomerular filtration rate (GFR) non- AmericanOrdered By: Tess Leahy on 86-16-4360WCQ/1.73 sq M.predicted among non-blacks MDRD (S/P/Bld) [Vol rate/Area]mL/min/{1.73_m2}>=60 mL/min/1.73m 2FFairfield Medical Center Globulin Calc (S) [Mass/Vol]Ordered By: Tess Leahy on 02-54-2710Oayhypfx (S) [Mass/Vol]3.1 g/dLAcmc Healthcare System GlenbeighGlucose mean value [Mass/volume] in Blood Estimated from glycated hemoglobinOrdered By: Tess Leahy on 43-21-3072Gyftboo glucose Estimated from glycated hemoglobin (Bld) [Mass/Vol]103 mg/dLAcmc Healthcare System GlenbeighHematocrit Auto (Bld) [Volume fraction]Ordered By: Tess Leahy on 53-64-7935Bqzlhhpmoi (Bld) [Volume fraction]39.8 %36.0-48.0[facility] GlenbeighHemoglobin A1c percentageOrdered By: Tess Leahy on 32-92-9381IsS5v (Bld) [Mass fraction]5.2 % 4.5-6.2FFairfield Medical CenterComment on above:ADA RECOMMENDED LIMIT 4.0 - 6.0ADA THERAPEUTIC TARGET < 7.0ACTION SUGGESTED> 7.0Hemoglobin [Mass/volume] in BloodOrdered By: Tess Leahy on 21-36-2926Dtxxhjghfb (Bld) [Mass/Vol]13.7 g/dL12.0-16.0[facility] GlenbeighLaboratory - Chemistry and Chemistry - challengeOrdered By: Tess Leahy on 60-35-8234Rtlllhg [Mass/Vol]3.5 g/dL3.4-5.0[facility] GlenbeighALP [Catalytic activity/Vol]50 U/Q17-710DpbvxzmfhAcmc Healthcare System GlenbeighALT [Catalytic activity/Vol]24 U/C69-07TnkfplpyuAcmc Healthcare System GlenbeighAST [Catalytic activity/Vol]20 U/D73-99ZfhybgbgsAcmc Healthcare System GlenbeighBilirubin [Mass/Vol]0.8 mg/dL0.2-1.0[facility] GlenbeighCalcium [Mass/Vol]9.2 mg/dL 8.5-10.1FFairfield Medical CenterChloride [Moles/Vol]103 mmol/L98-107 [facility] GlenbeighCO2 [Moles/Vol]30.1 mmol/L21.0-32.0[facility] GlenbeighCreatinine [Mass/Vol]0.63 mg/dL0.55-1.02[facility] GlenbeighFree T4 [Mass/Vol]1.01 ng/dL0.76-1.46[facility] GlenbeighGFR/1.73 sq M.predicted MDRD (S/P/Bld) [Vol rate/Area] mL/min/{1.73_m2}>=60 mL/min/1.73m 2FFairfield Medical CenterGlucose [Mass/Vol]98 mg/iK64-507ClopbfgotAcmc Healthcare System GlenbeighPotassium [Moles/Vol] 4.1 mmol/L3.5-5.1FFairfield Medical CenterProtein [Mass/Vol]6.6 g/dL 6.4-8.2FSalem City Hospitalodium [Moles/Vol]140 mmol/G971-232 [facility] GlenbeighTSH Qn5.042 m[IU]/LHigh0.358-3.740[facility] GlenbeighUrea nitrogen [Mass/Vol]19.0 mg/dLHigh7.0-18.0[facility] GlenbeighUrea nitrogen/Creatinine [Mass ratio]30.2 mg/mgAcmc Healthcare System GlenbeighLaboratory - Hematology and Cell countsOrdered By: Tess Leahy on 36-50-8273Vjreguow granulocytes/100 WBC (Bld)0.3 %0.0-0.5FFairfield Medical CenterLeukocytes [#/volume] corrected for nucleated erythrocytes in Blood by Automated counOrdered By: Tess Leahy on 16-00-5154NHK corrected for nucl RBC Auto (Bld) [#/Vol]5.8 10 3/uL4.0-11.0[facility] GlenbeighLymphocytes Auto (Bld) [#/Vol]Ordered By: Tess Leahy on 65-16-1385Igurmkvlyqb (Bld) [#/Vol]1.5 10 3/uL1.2-3.8[facility] GlenbeighLymphocytes/100 WBC Auto (Bld)Ordered By: Tess Leahy on 12-04-2024 Lymphocytes/100 WBC (Bld)25.6 %20.5-60.0Fort [facility] HospitalH Auto (RBC) [Entitic mass]Ordered By: Tess Leahy on 17-35-9573OIW (RBC) [Entitic mass]32.6 pg26.7-34.0[facility] HospitalHC Auto (RBC) [Mass/Vol]Ordered By: Tess Leahy on 97-51-3342PXXV (RBC) [Mass/Vol]34.4 g/dL 29.9-35.2FFairfield Medical CenterMCV Auto (RBC) [Entitic vol]Ordered By: Tess Leahy on 74-70-1921DVD (RBC) [Entitic vol]94.8 fL81.0-99.0[facility] GlenbeighMonocytes Auto (Bld) [#/Vol]Ordered By: Tess Leahy on 93-62-9211Mphkvunde (Bld) [#/Vol]0.4 10 3/uL0.3-0.8[facility] GlenbeighMonocytes/100 WBC Auto (Bld)Ordered By: Tess Leahy on 12-04-2024 Monocytes/100 WBC (Bld)7.5 %1.7-12.0[facility] GlenbeighNeutrophils Auto (Bld) [#/Vol]Ordered By: Tess Leahy on 99-56-2641Jandjhlchmg (Bld) [#/Vol]3.0 10 3/uL1.4-6.5FFairfield Medical CenterNeutrophils/100 WBC Auto (Bld)Ordered By: Tess Leahy on 26-24-6958Oshebeaeamp/100 WBC (Bld)52.3 % 43.0-75.0[facility] GlenbeighNo Panel InformationOrdered By: Tess Leahy on 00-56-9496Olwftjfceke # (Auto)0.8 10 3/uLHigh0.0-0.7FFairfield Medical CenterImmature Granulocyte # (Auto)0.02 10 3/uL0.00-0.03[facility] GlenbeighPlatelet mean volume Auto (Bld) [Entitic vol]Ordered By: Tess Leahy on 11-95-3647Ydvqsatj mean volume (Bld) [Entitic vol]9.4 fLLow 9.5-13.5FFairfield Medical CenterPlatelets Auto (Bld) [#/Vol]Ordered By: Tess Leahy on 63-66-7556Fbyftmbto (Bld) [#/Vol]264 10 3/iD331-741BzfyvmzxqAcmc Healthcare System GlenbeighRBC Auto (Bld) [#/Vol]Ordered By: Tess Leahy on 88-04-4030OKY (Bld) [#/Vol]4.20 10 6/uL4.20-5.40[facility] - Dublinerum or plasma albumin/globulin mass ratioOrdered By: Tess Leahy on 71-01-7235Ynkgutk/Globulin [Mass ratio]1.1 {ratio}[facility] - Dublinerum or plasma anion gap determinationOrdered By: Tess Leahy on 89-20-5829Hcjvf gap [Moles/Vol]11.0 mmol/LFFairfield Medical CenterMM TOMOSYNTHESIS SCREENING BIon 38-15-1812[place]mlShell [place] [address] Mammography Report Signed Patient: IOANA MARIE MR#: [id number] : 1970 Acct:[id number] Age/Sex: 54 / F ADM Date: 11/20/24 Loc: MAMMO Attending Dr: Triston Velazquez D.O. Ordering Physician: Triston Velazquez D.O. Results: Date of Service: 11/20/24 Follow Up: Procedure(s): MM tomosynthesis screening BI Accession Number(s): [id number] cc: Tess Leahy M.D.; Triston Velazquez D.O. Patient Name: IOANA MARIE MR#: [id number] : 1970 Exam Date: 11/20/2024 Ordering Doctor: [...] cancer at age 69. LOCATION: The [facility] BREAST COMPOSITION: The breasts are extremely [...] Signed By: 11/20/24 1255 DD/ 1254 TD/TT: Insurance Defense Paralegal:TBHRadiology, RadiologistMD - 11/20/2024 [place] [address] Mammography Report Signed Patient: IOANA MARIE MR#: [id number] : 1970 Acct:[id number] Age/Sex: 54 / F ADM Date: 11/20/24 Loc: MAMMO Attending Dr: Triston Velazquez D.O. Ordering Physician: Marcus,Triston D.O. Results: Date of Service: 11/20/24 Follow Up: Procedure(s): MM tomosynthesis screening BI Accession Number(s): [id number] cc: Tess Leahy M.D.; Triston Velazquez D.O. Patient Name: IOANA MARIE MR#: [id number] : 1970 Exam Date: 11/20/2024 Ordering Doctor: [...] cancer at age 69. LOCATION: The [facility] BREAST COMPOSITION: The breasts are extremely [...] Signed By: 11/20/24 1255 DD/ 1254 TD/TT: Insurance Defense Paralegal: KIMBERLY HealthcareRadiology Study observation (narrative)[facility] TOMOSYNTHESIS SCREENING BIOrdered By: Radiologist Radiology on 20-57-9118ACOD ISBX Work Phone: Laboratory - Chemistry and Chemistry - challengeon 84-02-1385Wozcwkp [Mass/Vol]9.1 mg/dL8.5-10.1FFairfield Medical CenterNo Panel InformationOrdered By: Anup Pearl on 97-01-6873Ykdrsrievzzfu Pathology TestSee commentAcmc Healthcare System GlenbeighComment on above:See report. Scanned copy available in EMR.Pathology Request for Lab Corpon 10-02-2024 Pathology Request for Lab CorpNormalThSt. Joseph Regional Medical Center Physician GroupComment on above:Order Comment: GI SPECIMENResult Comment: See report. Scanned copy available in EMR. PERFORMED BY: [place] [address] PATHOLOGIST GIN INSPECTOR VIKI OLIVEROS M.D.Performed By: #### [facility] #### [place] [address] USAAmbulatory Visit Summaryon 97-59-2900Cikbmrkrws Visit SummaryAmbulatory Visit Summary IOANA MARIE :1970 [...] you for choosing us for your care. [facility] HospitalIGP,APTIMA HPV,AGE GDLNon 73-88-8812YCA GDLN ACOG TESTINGNote.NOMS HealthcareComment on above:TESTS RESULT FLAG UNITS REF RANGE LAB Clinician Provided Cytology Information Source.............Cervix;Endocervix No. of containers..01 ThinPrep Vial Age Christinao ACOG Valencia... FLAG LEGEND: L-Low Normal,H-High Normal,LL-Alert Low,HH-Alert High <-Panic Low,>-Panic High,A-Abnormal,AA-Critical Abnormal Performed at: 01 [address] [facility] [place] [address] Lilo Ferrer MD, HPV APTIMANegativeNegativeNOMS HealthcareComment on above:This nucleic acid amplification test detects fourteen high- risk HPV types (16,18,31,33,35,39,45,51,52,56,58,59,66,68) without differentiation. Performed at: = - [facility], [place] [id number] Grounds Person: Lilo Ferrer MD, Phone: [phone] Performed at: - [facility], [place] [id number] Grounds Person: Lilo Ferrer MD, Phone: [phone] IGP, APTIMA HPV, RFX 16/18,45Note.NOMS HealthcareComment on above:TESTS RESULT FLAG UNITS REF RANGE LAB DIAGNOSIS: 02 NEGATIVE FOR INTRAEPITHELIAL LESION OR MALIGNANCY. Specimen adequacy: 02 Satisfactory for evaluation. Endocervical and/or squamous metaplastic cells (endocervical component) are present. Performed by: Mert Pantoja, Route Agent . 02 Note: Note 02 The Pap [...] Low,>-Panic High,A-Abnormal,AA-Critical Abnormal Performed at: [address] [address] Lilo Ferrer MD, BRUSH-SPATULA CERVIX ENDOCERVIX CLINISYNCNOMS HealthcareBasophils Auto (Bld) [#/Vol]on 33-97-0690Mkvjodltd (Bld) [#/Vol]Automated basophil count0.0-0.1FFairfield Medical Center Basophils/100 WBC Auto (Bld)on 61-63-0166Qjrwfgldd/100 WBC (Bld)Automated basophil %0.2-2.0[facility] GlenbeighEosinophils/100 WBC Auto (Bld) on 40-44-4640Ppbyrwvplwm/100 WBC (Bld)Automated eosinophil %High0.9-7.0[facility] GlenbeighErythrocyte distribution width Auto (RBC) [Ratio]on 53-29-8000Zbbycbhkfqn distribution width (RBC) [Ratio]Erythrocyte distribution width [Ratio] by Automated count11.0-15.0[facility] GlenbeighHCG ( test) IA.rapid Ql (U)on 65-65-7806RXM ( test) Ql (U)Urine human chorionic gonadotropin (hCG) detection by immunoassayNEGATIVEAcmc Healthcare System GlenbeighHematocrit Auto (Bld) [Volume fraction]on 02-14-2024 Hematocrit (Bld) [Volume fraction]Hematocrit [Volume Fraction] of Blood by Automated count36.0-48.0[facility] GlenbeighHemoglobin [Mass/volume] in Bloodon 69-19-5711Mtrfwyklzl (Bld) [Mass/Vol]Hemoglobin [Mass/volume] in Blood12.0-16.0[facility] GlenbeighLaboratory - Hematology and Cell countson 87-04-9714Zwijsqga granulocytes/100 WBC (Bld)0.2 % 0.0-0.5FFairfield Medical CenterLeukocytes [#/volume] corrected for nucleated erythrocytes in Blood by Automated counon 68-44-7832UCJ corrected for nucl RBC Auto (Bld) [#/Vol]Leukocytes [#/volume] corrected for nucleated erythrocytes in Blood by Automated coun4.0-11.0[facility] Lymphocytes Auto (Bld) [#/Vol]on 17-51-8753Cxyiygqrupp (Bld) [#/Vol]Lymphocytes [#/volume] in Blood by Automated count1.2-3.8[facility] Lymphocytes/100 WBC Auto (Bld)on 42-82-9761Blxhphlnfab/100 WBC (Bld) Lymphocytes/100 leukocytes in Blood by Automated count20.5-60.0[facility] HospitalH Auto (RBC) [Entitic mass]on 51-45-1296VRI (RBC) [Entitic mass]MCH [Entitic mass] by Automated count26.7-34.0[facility] GlenbeighMCHC Auto (RBC) [Mass/Vol]on 48-22-9684AJED (RBC) [Mass/Vol]MCHC [Mass/volume] by Automated count29.9-35.2FFairfield Medical CenterMCV Auto (RBC) [Entitic vol]on 99-99-8497IOR (RBC) [Entitic vol]MCV [Entitic volume] by Automated count81.0-99.0[facility] GlenbeighMonocytes Auto (Bld) [#/Vol]on 26-78-6120Mbpyxkinl (Bld) [#/Vol]Automated blood monocyte count0.3-0.8 [facility] GlenbeighMonocytes/100 WBC Auto (Bld)on 02-14-2024 Monocytes/100 WBC (Bld)Automated monocyte %1.7-12.0[facility] GlenbeighNeutrophils Auto (Bld) [#/Vol]on 09-64-5909Ajxjyiwmjfe (Bld) [#/Vol] Neutrophils [#/volume] in Blood by Automated count1.4-6.5FFairfield Medical CenterNeutrophils/100 WBC Auto (Bld)on 38-20-9520Kzucvgxzgei/100 WBC (Bld)Automated neutrophil %Low43.0-75.0[facility] GlenbeighNo Panel Informationon 12-25-2663Rxakuyabyfq # (Auto)1.2 10 3/uLHigh0.0-0.7FFairfield Medical CenterImmature Granulocyte # (Auto)0.01 10 3/uL0.00-0.03 [facility] GlenbeighPlatelet mean volume Auto (Bld) [Entitic vol]on 76-73-8273Inwgndpd mean volume (Bld) [Entitic vol]Platelet mean volume [Entitic volume] in Blood by Automated count9.5-13.5FFairfield Medical Center Platelets Auto (Bld) [#/Vol]on 96-98-5405Jzwuenkap (Bld) [#/Vol]Platelets [#/volume] in Blood by Automated dplaw147-113WnajsdnzuAcmc Healthcare System Glenbeigh RBC Auto (Bld) [#/Vol]on 90-47-7172XNK (Bld) [#/Vol]Erythrocytes [#/volume] in Blood by Automated count4.20-5.40[facility] GlenbeighMM TOMOSYNTHESIS SCREENING BIon 30-06-8766Xot[place] [address] Mammography Report Signed Patient: IOANA MARIE MR#: [id number] : 1970 Acct:[id number] Age/Sex: 53 / F ADM Date: 11/20/23 Loc: MAMMO Attending Dr: Triston Velazquez D.O. Ordering Physician: Triston Velazquez D.O. Results: Date of Service: 11/20/23 Follow Up: Procedure(s): MM tomosynthesis screening BI Accession Number(s): [id number] cc: Tess Leahy M.D.; Triston Velazquez D.O. Patient Name: IOANA MARIE MR#: [id number] : 1970 Exam Date: 11/20/2023 Ordering Doctor: [...] cancer at age 69. LOCATION: The [facility] BREAST COMPOSITION: The breasts are extremely [...] Signed By: 11/23/23 1331 DD/ 1330 TD/TT: Insurance Defense Paralegal:TBHRadiology, Radiologist, MD - 11/23/2023 [place] [address] Mammography Report Signed Patient: IOANA MARIE MR#: [id number] : 1970 Acct:[id number] Age/Sex: 53 / F ADM Date: 11/20/23 Loc: MAMMO Attending Dr: Triston Velazquez D.O. Ordering Physician: Triston Velazquez D.O. Results: Date of Service: 11/20/23 Follow Up: Procedure(s): MM tomosynthesis screening BI Accession Number(s): [id number] cc: Tess Leahy M.D.; Triston Velazquez D.O. Patient Name: IOANA MARIE MR#: [id number] : 1970 Exam Date: 11/20/2023 Ordering Doctor: [...] cancer at age 69. LOCATION: The [facility] BREAST COMPOSITION: The breasts are extremely [...] Signed By: 11/23/23 1331 DD/ 1330 TD/TT: Insurance Defense Paralegal: KIMBERLY HealthcareRadiology Study observation (narrative)[facility] TOMOSYNTHESIS SCREENING BIOrdered By: Radiologist Radiology on 21-13-1021YWKA ISBX Work Phone: basophils Auto (Bld) [#/Vol]on 62-76-4402Ntpxoqjpy (Bld) [#/Vol]0.1 10 3/uL0.0-0.1FFairfield Medical CenterBasophils/100 WBC Auto (Bld)on 73-48-0219Vyscqgmkm/100 WBC (Bld)0.8 %0.2-2.0[facility]beighCholesterol in LDL Calc [Mass/Vol]on 72-36-7867Mxjxanvyrsz in LDL [Mass/Vol]88.0 mg/dLAcmc Healthcare System GlenbeighComment on above:<100 mg/dl QZJUCQZ061-891 mg/dl NEAR OR ABOVE PAMJOAG837-448 mg/dl BORDERLINE GDSX814-574 mg/dl HIGH>190 mg/dl VERY HIGHCholesterol in VLDL Calc [Mass/Vol]on 62-27-8696Ukunvuvayyo in VLDL [Mass/Vol]10.2 mg/dLAcmc Healthcare System GlenbeighEosinophils/100 WBC Auto (Bld)on 61-33-3276Okbtwjkvtht/100 WBC (Bld)11.7 % 0.9-7.0[facility] GlenbeighErythrocyte distribution width Auto (RBC) [Ratio]on 07-10-0298Bcovvsvlcfd distribution width (RBC) [Ratio]12.0 % 11.0-15.0[facility] GlenbeighEstimated glomerular filtration rate (GFR) non- Americanon 14-94-8692HEH/1.73 sq M.predicted among non-blacks MDRD (S/P/Bld) [Vol rate/Area]mL/min/{1.73_m2}>=60A[facility] GlenbeighGlobulin Calc (S) [Mass/Vol]on 76-40-9901Dvgogyeg (S) [Mass/Vol]3.4 g/dL [facility] GlenbeighHematocrit Auto (Bld) [Volume fraction]on 76-37-2942Youdmagkoi (Bld) [Volume fraction]39.6 %36.0-48.0[facility] GlenbeighHemoglobin [Mass/volume] in Bloodon 90-83-9865Chvgtiokmd (Bld) [Mass/Vol]13.2 g/dL12.0-16.0[facility] GlenbeighLaboratory - Chemistry and Chemistry - challengeon 42-59-8931Jjmlxbo [Mass/Vol]3.4 g/dL 3.4-5.0[facility] GlenbeighALP [Catalytic activity/Vol]51 U/L46-116 [facility] GlenbeighALT [Catalytic activity/Vol]16 U/L14-59 [facility]ighAST [Catalytic activity/Vol]21 U/L15-37 [facility] GlenbeighBilirubin [Mass/Vol]1.1 mg/dL0.2-1.0[facility] GlenbeighCalcium [Mass/Vol]8.7 mg/dL8.5-10.1FFairfield Medical CenterChloride [Moles/Vol]103 mmol/C77-278IalazauioAcmc Healthcare System GlenbeighCholesterol [Mass/Vol]177 mg/dL<=200[facility] Cholesterol in HDL [Mass/Vol]79 mg/fS99-69CwgqzwrpbAcmc Healthcare System Glenbeigh Comment on above:> or =60 mg/dl - LOW CARDIOVASCULAR RISK<40 mg/dl - HIGH CARDIOVASCULAR RISKCO2 [Moles/Vol]27.1 mmol/L21.0-32.0[facility] GlenbeighCreatinine [Mass/Vol]0.81 mg/dL0.55-1.02[facility] GFR/1.73 sq M.predicted MDRD (S/P/Bld) [Vol rate/Area]mL/min/{1.73_m2}>=60 [facility] GlenbeighGlucose [Mass/Vol]92 mg/hC46-949CidduyqesAcmc Healthcare System GlenbeighPotassium [Moles/Vol]4.4 mmol/L3.5-5.1FFairfield Medical CenterProtein [Mass/Vol]6.8 g/dL6.4-8.2FFairfield Medical Center Sodium [Moles/Vol]137 mmol/I862-686DtqaxlymhAcmc Healthcare System GlenbeighTriglyceride [Mass/Vol]51 mg/dL<=150[facility] GlenbeighUrea nitrogen [Mass/Vol]21.0 mg/dL7.0-18.0[facility] GlenbeighUrea nitrogen/Creatinine [Mass ratio]25.9 mg/mgAcmc Healthcare System Glenbeigh Laboratory - Hematology and Cell countson 29-79-8472Esecpglx granulocytes/100 WBC (Bld)0.2 %0.0-0.5FFairfield Medical CenterLeukocytes [#/volume] corrected for nucleated erythrocytes in Blood by Automated counon 67-77-6456JVX corrected for nucl RBC Auto (Bld) [#/Vol]8.4 10 3/uL4.0-11.0[facility] GlenbeighLymphocytes Auto (Bld) [#/Vol]on 42-33-8623Thqkvwvvmxn (Bld) [#/Vol]1.7 10 3/uL1.2-3.8[facility] GlenbeighLymphocytes/100 WBC Auto (Bld)on 29-48-6032Gulcwgzzddb/100 WBC (Bld)20.5 %20.5-60.0Fort [facility] HospitalH Auto (RBC) [Entitic mass]on 33-39-2021VYT (RBC) [Entitic mass]31.7 pg26.7-34.0[facility] GlenbeighMCHC Auto (RBC) [Mass/Vol]on 11-60-9200BRRL (RBC) [Mass/Vol]33.3 g/dL29.9-35.2FFairfield Medical CenterMCV Auto (RBC) [Entitic vol]on 57-66-6685XUJ (RBC) [Entitic vol] 95.2 fL81.0-99.0[facility] GlenbeighMonocytes Auto (Bld) [#/Vol]on 15-20-5038Golrmwxgi (Bld) [#/Vol]0.5 10 3/uL0.3-0.8[facility] GlenbeighMonocytes/100 WBC Auto (Bld)on 73-66-4781Epkhronuq/100 WBC (Bld)5.5 % 1.7-12.0[facility] GlenbeighNeutrophils Auto (Bld) [#/Vol]on 91-85-6546Vyvcvfwitrm (Bld) [#/Vol]5.2 10 3/uL1.4-6.5FFairfield Medical CenterNeutrophils/100 WBC Auto (Bld)on 32-64-6170Xkkdaivtfss/100 WBC (Bld)61.3 % 43.0-75.0[facility]beighNo Panel Informationon 11-14-2023 Eosinophils # (Auto)1.0 10 3/uL0.0-0.7FFairfield Medical CenterImmature Granulocyte # (Auto)0.02 10 3/uL0.00-0.03[facility] Platelet mean volume Auto (Bld) [Entitic vol]on 77-29-8576Obzgggog mean volume (Bld) [Entitic vol]10.3 fL9.5-13.5FFairfield Medical CenterPlatelets Auto (Bld) [#/Vol]on 15-82-9966Obocfgpcy (Bld) [#/Vol]235 10 3/rN408-954 [facility] GlenbeighRBC Auto (Bld) [#/Vol]on 00-42-5751NUR (Bld) [#/Vol]4.16 10 6/uL4.20-5.40[facility] - Dublinerum or plasma albumin/globulin mass ratioon 86-35-4815Avhqqca/Globulin [Mass ratio]1.0 {ratio} [facility] - Dublinerum or plasma anion gap determinationon 49-60-0012Dhnpp gap [Moles/Vol]11.3 mmol/LFSalem City Hospitalerum or plasma total cholesterol/high density lipoprotein (HDL) cholesterol mass rat on 31-10-1703Cdnhixyiwfo.total/Cholesterol in HDL [Mass ratio]2.2 {ratio} [facility]beighComment on above:3.3 - 4.4 LOW RISK4.4 - 7.1 AVERAGE RISK7.1 - 11.0 MODERATE RISK>11.0 HIGH RISKGlucose mean value [Mass/volume] in Blood Estimated from glycated hemoglobinon 04-73-3020Sgjaibs glucose Estimated from glycated hemoglobin (Bld) [Mass/Vol]105 mg/dLAcmc Healthcare System GlenbeighLaboratory - Chemistry and Chemistry - challengeon 61-72-6844Npwusmqk [Mass/Vol]35.0 ng/mL8.0-252.0[facility] GlenbeighFree T4 [Mass/Vol]0.96 ng/dL0.76-1.46[facility] Glucose [Mass/Vol]88 mg/zY62-301WararywepAcmc Healthcare System GlenbeighT4 [Mass/Vol] 7.70 ug/dL4.80-13.90[facility]beighTS Qn2.126 m[IU]/L 0.358-3.740[facility] GlenbeighLaboratory - Hematology and Cell countson 69-13-6391ShK9d (Bld) [Mass fraction]5.3 %4.5-6.2FFairfield Medical CenterComment on above:ADA RECOMMENDED LIMIT 4.0 - 6.0ADA THERAPEUTIC TARGET < 7.0ACTION SUGGESTED> 7.0No Panel Informationon 13-47-606399749850-Zxsenrs Vitamin D Total29.1 ng/mLAcmc Healthcare System GlenbeighComment on above:<20 ng/mL Vit D -<30 ng/mL Vit D wkjaerhnhhik30-511 ng/mL Vit D sufficient>100 ng/mL Potential ToxicityC-Peptide1.4 ng/mL1.1-4.4FFairfield Medical CenterComment on above:C-Peptide reference interval is for fasting patients.C-Peptide reference interval is for fasting patients. Dehydroepiandrosterone Ezhmfvu14.4 ug/dL41.2-243.7FFairfield Medical CenterFree Cortisol, Dialysis, LCMS0.524 ug/dL.[facility] Comment on above:These tests were developed and their performancecharacteristics determined by [employer]. They have not beencleared or approved by the Food and Drug Administration.Reference Range:8 AM 0.10 - 1.204 PM 0.042 - 0.872Performed at: [facility] [address] [id number] Dir fani: Shiv Padron MD, Phone: [phone] Triiodothyronine2.33 pg/mL 2.18-3.98[facility] GlenbeighReverse Triiodothyronine (T3)16.0 ng/dL9.2-24.1FFairfield Medical CenterComment on above:This test was developed and its performance characteristicsdetermined by [employer]. It has not been cleared orapproved by the Food and Drug Administration.Performed at: [address] [id number] Director: Jennifer Ruff MD, Phone: [phone] Hormone Binding Hegdstrr604.0 nmol/L17.3-125.0 [facility] GlenbeighComment on above:Performed at: [address] [id number] Director: Mark Gallardo PhD, Phone: [phone] at: [address] [id number] Director: Mark Gallardo PhD, Phone: [phone] Level15 ng/dL4-50[facility] - Dublinerotonin (P) [Mass/Vol]on 53-72-7218Gsnmbcuhz865 ng/pM63-153WgivpdnybAcmc Healthcare System GlenbeighComment on above:This test was developed and its performance characteristicsdetermined by [employer]. It has not been cleared orapproved by the Food and Drug Administration.Performed at: [address] [id number] Director: Jennifer Ruff MD, Phone: [phone] test was developed and its performance characteristicsdetermined by [employer]. It has not been cleared orapproved by the Food and Drug Administration.Performed at: [address] [id number] Director: Jennifer Ruff MD, Phone: [phone] estrone measurementon 67-02-0243L4 [Mass/Vol]106 pg/mL.[facility] GlenbeighComment on above:Range Adult (Premenopausal) 27 - 231 Menstrual Cycle (1-10 days) 19 - 149 Menstrual Cycle (11-20 days) 32 - 176 Menstrual Cycle (21-30 days) 37 - 200 Adult (Postmenopausal) 0 - 125Performed at: [address] [id number] Director: Jennifer Ruff MD, Phone: [phone] or plasma estradiol (E2) measurement (mass/volume)on 00-31-6325K7 [Mass/Vol] 238.0 pg/mL.[facility] GlenbeighComment on above:Adult Female Range Follicular phase 12.5 - 166.0 Ovulation phase 85.8 - 498.0 Luteal phase 43.8 - 211.0 Postmenopausal <6.0 - 54.7 1st trimester 215.0 - >4300.0Roche ECLIA methodologySerum or plasma insulin measurement (units/volume)on 11-07-2023 Insulin Qn3.5 u[iU]/mL2.6-24.9[facility] GlenbeighComment on above: Performed at: [facility] [id number] Director: Mark Gallardo PhD, Phone: [phone] or plasma progesterone measurement (mass/volume)on 37-31-4003Rvnusufkjufx [Mass/Vol]0.5 ng/mL.[facility] GlenbeighComment on above:Follicular phase 0.1 - 0.9 Luteal phase 1.8 - 23.9 Ovulation phase 0.1 - 12.0 First trimester 11.0 - 44.3 Second trimester 25.4 - 83.3 Third trimester 58.7 - 214.0 Postmenopausal 0.0 - 0.1TPO Ab Qnon 62-28-3075Hkovhmt Peroxidase Zkrscpkkcw959 [IU]/mL0-34[facility] GlenbeighTestosterone Free [Mass/Vol]on 54-14-1365Geoq Testosterone0.8 pg/mL0.0-4.2FFairfield Medical CenterComment on above: Performed at: [employer] [id number] Director: Mark Gallardo PhD, Phone: [phone] at: [facility] [employer] [id number] Director: Jennifer Ruff MD, Phone: [phone] at: [facility] [employer] [id number] Director: Mark Gallardo PhD, Phone: [phone] at: [facility] [employer] [id number] Director: Jennifer Ruff MD, Phone: [phone] Ab Qnon 76-90-3768Tgws- Thyroglobulin Nvrgsnml741.8 [IU]/mL0.0-0.9[facility] Comment on above:Thyroglobulin Antibody measured by Radha CoulterMethodologyIt should be noted that the presence of thyroglobulinantibodies may not be pathogenic nor diagnostic, especiallyat very low levels. The assay field marketing manager has found thatfour percent of individuals without evidence of thyroiddisease or autoimmunity will have positive TgAb levels upto 4 IU/mL.Performed at: [facility] [employer] [id number] Director: Mark Gallardo PhD, Phone: [phone] Antibody measured by [employer]inderMethodologyIt should be noted that the presence of thyroglobulinantibodies may not be pathogenic nor diagnostic, especiallyat very low levels. The assay field marketing manager has found thatfour percent of individuals without evidence of thyroiddisease or autoimmunity will have positive TgAb levels upto 4 IU/mL.Performed at: [facility] [employer] [id number] Director: Mark Gallardo PhD, Phone: [phone] Antibody measured by [employer] 4aodologyIt should be noted that the presence of thyroglobulinantibodies may not be pathogenic nor diagnostic, especiallyat very low levels. The assay field marketing manager has found thatfour percent of individuals without evidence of thyroiddisease or autoimmunity will have positive TgAb levels upto 4 IU/mL.Performed at: [facility] [employer] [id number] Director: Mark Gallardo PhD, Phone: [phone] Thyroglobulin [Mass/volume] in Serum or Plasmaon 47-64-1398Obasqedwbpobs [Mass/Vol]9.4 ng/mL.[facility] GlenbeighComment on above:This test was developed and its performance characteristicsdetermined by [employer]. It has not been cleared or approvedby [...] is 2.0 ng/mL.Performed at: [facility] [place], [place] [id number] Director: Samy Padron MD, Phone: [phone] ( test) IA.rapid Ql (U)on 29-34-0675EHV ( test) Ql (U)NegativeNEGATIVEAcmc Healthcare System GlenbeighXR DEXA AXIAL SKELETONon 76-47-5048[place] [address] XRay Report Signed Patient: IOANA MARIE MR#: [id number] : 1970 Acct:[id number] Age/Sex: 52 / F ADM Date: 06/29/23 Loc: RAD Attending Dr: Triston Velazquez D.O. Ordering Physician: Triston Velazquez D.O. Date of Service: 06/29/23 Procedure(s): XR DEXA axial skeleton Accession Number(s): [id number] cc: Tess Leahy M.D.; Triston Velazquez D.O. [place] [address] Patient Name: IOANA MARIE MRN: [id number] date: 1970 Sex: F Assigned Patient Location: [facility] Current Patient Location: [facility] Accession/Order Number: [id number] Exam Date: 06/29/2023 15:00 Report Date: 06/29/2023 [...] Signed By: 06/29/23 1548 DD/ 1546 TD/TT: Insurance Defense Paralegal:REBECCAadiologberyl, Radiologist, - 06/29/2023 [place] [address] XRay Report Signed Patient: IOANA MARIE MR#: [id number] : 1970 Acct:[id number] Age/Sex: 52 / F ADM Date: 06/29/23 Loc: RAD Attending Dr: Triston Velazquez D.O. Ordering Physician: Triston Velazquez D.O. Date of Service: 06/29/23 Procedure(s): XR DEXA axial skeleton Accession Number(s): [id number] cc: Tess Leahy M.D.; Triston Velazquez D.O. [place] [address] Patient Name: IOANA MARIE MRN: [id number] date: 1970 Sex: F Assigned Patient Location: [facility] Current Patient Location: [facility] Accession/Order Number: [id number] Exam Date: 06/29/2023 15:00 Report Date: 06/29/2023 [...] [place] M.D. Signed By: 06/29/23 1548 DD/ 45 TD/TT: Insurance Defense Paralegal: KIMBERLY HealthcareRadiology Study observation (narrative)[facility] HealthcareXR DEXA AXIAL SKELETONOrdered By: Radiologist Radiology on 11-99-5760RBQI ISBX Work Phone: MG MAMM SCREEN 3D CHRISTAL CADon 01-47-7053RT MAMM SCREEN 3D CHRISTAL CADPatient: IOANA MARIE Exam Date: 11/11/2022 : 1970 Gender:F Ordering : DR TRISTON VELAZQUEZ . Admission #: [id number] Family : Order #: [id number] CLICK HERE TO VIEW EXAM RADIOLOGY REPORT [...] cancer at age 69. LOCATION: The [facility] BREAST COMPOSITION: Extremely dense, which lowers [...] by: Tylor Alamo MD on 11/11/2022 at 13:58NoCleveland Clinic FoundationCB AUTO DIFFon 82-26-0111TIES #0.1 103/ulNormal0.0-0.1[facility]huja Medical CenterComment on above:Performed By: #### CBC #### [facility] [address] [place] [address] [address] Edelmira HirschBasophils/100 WBC (Bld)1.0 %Normal0.2-2.0[facility] on above:Performed By: #### CBC #### [facility] [address] [place] [address] Dr. Edelmira Jerez #1.0 103/ulCritically high0.0-0.7The [facility] SystemComment on above:Performed By: #### CBC #### [facility] [address] [place] [address] Dr. Edelmira Lauosinophils/100 WBC (Bld)13.9 %Critically high0.9-7.0The [facility] SystemComment on above:Performed By: #### CBC #### [facility] [address] [place] [address] Dr. Edelmira Laurythrocyte distribution width (RBC) [Ratio]12.2 %Expwex48.0-15.0 The [facility] SystemComment on above:Performed By: #### CBC #### [facility] [address] [place] [address] Dr. Edelmira HirschHematocrit (Bld) [Volume fraction]40.5 %Gslbhb97.0-48.0The [facility] SystemComment on above:Performed By: #### CBC #### [facility] [address] [place] [address] Dr. Edelmria HirschHemoglobin (Bld) [Mass/Vol]13.8 g/rGTgluit52.0-16.0The [facility] SystemComment on above:Performed By: #### CBC #### [facility] [address] [place] [address] Dr. Edelmira Almeida #0.02 10e3/ulNormal0.00-0.03The [facility] SystemComment on above:Performed By: #### CBC #### [facility] [address] [place] [address] Dr. Yilan ChangIG %0.3 %Normal0.0-0.5The [facility] SystemComment on above: Performed By: #### CBC #### [facility] [address] [place] [address] Dr. Edelmira Stoner #1.8 103/ulNormal1.2-3.8The [facility] SystemComment on above:Performed By: #### CBC #### [facility] [address] [place] [address] Dr. Edelmira Quigleyhocytes/100 WBC (Bld)24.6 %Uumilv34.5-60.0The [facility] SystemComment on above:Performed By: #### CBC #### [facility] [address] [place] [address] Dr. Edelmira Hilton DIFF REQNONormalThe [facility] SystemComment on above: Performed By: #### CBC #### [facility] [address] [place] [address] Dr. Edelmira Rasmusesn (RBC) [Entitic mass]32.2 arYmybuc94.7-34.0The [facility] SystemComment on above:Performed By: #### CBC #### [facility] [address] [place] [address] Dr. Edelmira Mcmahon (RBC) [Mass/Vol]34.1 g/iHVwyepj49.9-35.2The [facility] SystemComment on above:Performed By: #### CBC #### [facility] [address] [place] [address] Dr. Edelmira Malhotra (RBC) [Entitic vol]94.6 zZIjtxgi39.0-99.0The [facility] SystemComment on above:Performed By: #### CBC #### [facility] [address] [place] [address] Dr. Edelmira Beckford #0.5 103/ulNormal0.3-0.8The [facility] SystemComment on above:Performed By: #### CBC #### [facility] [address] [place] [address] Dr. Yilan ChangMonocytes/100 WBC (Bld)6.5 %Normal1.7-12.0The [facility] Comment on above:Performed By: #### CBC #### [facility] [address] [place] [address] Dr. Edelmira Haq #3.8 103/ulNormal1.4-6.5The [facility] SystemComment on above:Performed By: #### CBC #### [facility] [address] [place] [address] Dr. Edelmira Paceutrophils/100 WBC (Bld)53.7 %Nnwqyl64.0-75.0The [facility] SystemComment on above:Performed By: #### CBC #### [facility] [address] [place] [address] Dr. Edelmira Etiennelet mean volume (Bld) [Entitic vol]10.0 fLNormal9.5-13.5The [facility] SystemComment on above:Performed By: #### CBC #### [facility] [address] [place] [address] Dr. Edelmira HirschPLT276 103/lzKpchud276-654Iey [facility] SystemComment on above: Performed By: #### CBC #### [facility] [address] [place] [address] Dr. Edelmira HirschRBC4.28 106/ulNormal4.20-5.40The [facility] SystemComment on above:Performed By: #### CBC #### [facility] [address] [place] [address] Dr. Edelmira HirschWBC7.1 103/ulNormal4.0-11.0The [facility] SystemComment on above: Performed By: #### CBC #### [facility] [address] [place] [address] Dr. Edelmira HirschGLYCOHEMOGLOBIN A1Con 62-14-7274HYJ RECOMMENDATIONSEE BELOWNormal [facility] Ahuja Medical CenterComment on above:Result Comment: ADA RECOMMENDED LIMIT 4.0 - 6.0 ADA THERAPEUTIC TARGET < 7.0 ACTION SUGGESTED > 7.0Performed By: #### A1C #### [facility] [address] [place] [address] [address] Edelmira HirschGlucose [Mass/Vol]100 mg/dLNoCleveland Clinic FoundationComment on above:Performed By: #### A1C #### [facility] [address] [place] [address] [address] Edelmira HirschHbA1c (Bld) [Mass fraction]5.1 %Normal4.5-6.2The [facility] SystemComment on above:Performed By: #### A1C #### [facility] [address] [place] [address] [address] Edelmira HirschLIPID PROFILEon 26-67-5863NYJC-HDL RATIO NORMSEE [facility] Medical CenterComment on above:Result Comment: 3.3 - 4.4 LOW RISK 4.4 - 7.1 AVERAGE RISK 7.1 - 11.0 MODERATE RISK >11.0 HIGH RISKPerformed By: #### LIPID, CMP, TSH #### [facility] [address] [place] [address] Dr. Edelmira Forrestesterol [Mass/Vol]164 mg/dLNormal<=200The [facility] Comment on above:Performed By: #### LIPID, CMP, TSH #### [facility] [address] [place] [address] Dr. Edelmira Forrestesterol in HDL [Mass/Vol]80 mg/dLCritically clra03-19Mbn [facility] SystemComment on above:Performed By: #### LIPID, CMP, TSH #### [facility] [address] [place] [address] Dr. Edelmira Forrestesterol in LDL [Mass/Vol]76.8 mg/dLMercy Health St. Charles HospitalComment on above:Performed By: #### LIPID, CMP, TSH #### [facility] [address] [place] [address] Dr. Edelmira Forrestesterivan.total/Cholesterol in HDL [Mass ratio]2.1 {ratio} NormalThe [facility] SystemComment on above:Performed By: #### LIPID, CMP, TSH #### [facility] [address] [place] [address] [address] Edelmira Trivedi NORMAL> or = 60 mg/dl - LOW CARDIOVASCULAR RISK <40 mg/dl - HIGH CARDIOVASCULAR RISKMercy Health St. Charles HospitalComment on above:Performed By: #### LIPID, CMP, TSH #### [facility] [address] [place] [address] [address] Edelmira Mahoney CALC NORMALSEE BELOWNoCleveland Clinic FoundationComment on above:Result Comment: <100 mg/dl OPTIMAL 100 - 129 mg/dl NEAR OR ABOVE OPTIMAL 130 - 159 mg/dl BORDERLINE HIGH 160 - 189 mg/dl HIGH >190 mg/dl VERY HIGH Performed By: #### LIPID, CMP, TSH #### [facility] [address] [place] [address] Dr. Edelmira HirschTriglyceride [Mass/Vol]36 mg/dLNormal<=150The [facility] Comment on above:Performed By: #### LIPID, CMP, TSH #### [facility] [address] [place] [address] Dr. Edelmira WinLDL CALC7.2 mg/dLNoCleveland Clinic FoundationComment on above: Performed By: #### LIPID, CMP, TSH #### [facility] [address] [place] [address] Dr. Edelmira John 14(COMP METB)on 54-75-8070Rgixydm [Mass/Vol]3.5 g/dLNormal 3.4-5.0The [facility] SystemComment on above:Performed By: #### LIPID, CMP, TSH #### [facility] [address] [place] [address] Dr. Edelmira HirschAlbumin/Globulin [Mass ratio]0.9 {ratio}NormalThe [facility] SystemComment on above:Performed By: #### LIPID, CMP, TSH #### [facility] [address] [place] [address] Dr. Edelmira Phoenix [Catalytic activity/Vol]51 U/UEytnye08-559Zpb [facility] SystemComment on above:Performed By: #### LIPID, CMP, TSH #### [facility] [address] [place] [address] [address] Edelmira ValenciaT [Catalytic activity/Vol]23 U/GKiefze02-51Ybh [facility] SystemComment on above:Performed By: #### LIPID, CMP, TSH #### [facility] [address] [address] [address] Edelmira Hobbson gap [Moles/Vol]11.2 mmol/LNormalUniversity Hospitals Ahu[facility] Comment on above:Performed By: #### LIPID, CMP, TSH #### [facility] [address] [place] [address] Dr. Edelmira HirschAST [Catalytic activity/Vol]18 U/MVfnorr26-07Yxo [facility] on above:Performed By: #### LIPID, CMP, TSH #### [facility] [address] [place] [address] Dr. Edelmira HirschBilirubin [Mass/Vol]0.9 mg/dLNormal0.2-1.0[facility] Comment on above:Performed By: #### LIPID, CMP, TSH #### [facility] [address] [place] [address] Dr. Edelmira HirschCalcium [Mass/Vol]9.4 mg/dLNormal8.5-10.1[facility] Comment on above:Performed By: #### LIPID, CMP, TSH #### [facility] [address] [place] [address] Dr. Edelmira HirschChloride [Moles/Vol]104 mmol/NUgqktj65-303Vdo [facility] Comment on above:Performed By: #### LIPID, CMP, TSH #### [facility] [address] [place] [address] Dr. Edelmira HirschCO2 [Moles/Vol]29.5 mmol/ITasmcb13.0-32.0The [facility] Comment on above:Performed By: #### LIPID, CMP, TSH #### [facility] [address] [place] [address] Dr. Eedlmira HirschCreatinine [Mass/Vol]0.86 mg/dLNormal0.55-1.02The [facility] on above:Performed By: #### LIPID, CMP, TSH #### [facility] [address] [address] [address] Edelmira LauGFR-AF TOGOLESE>60Normal>=60The [facility] on above:Performed By: #### LIPID, CMP, TSH #### [facility] [address] [address] [address] Edelmira LauGFR-NON AF TOGOLESE>60Normal>=60The [facility] on above:Performed By: #### LIPID, CMP, TSH #### [facility] [address] [address] [address] Edelmira HirschGlobulin (S) [Mass/Vol]3.7 g/dLNormalThe [facility] on above:Performed By: #### LIPID, CMP, TSH #### [facility] [address] [address] [address] Edelmira HirschGlucose [Mass/Vol]97 mg/aTNfzknh66-238BaeUniversity Hospitals Ahuja Medical Center Comment on above:Performed By: #### LIPID, CMP, TSH #### [facility] [address] [address] [address] Edelmira HirschPotassium [Moles/Vol]4.7 mmol/LNormal3.5-5.1[facility] Comment on above:Performed By: #### LIPID, CMP, TSH #### [facility] [address] [address] [address] Edelmira HirschProtein [Mass/Vol]7.2 g/dLNormal6.4-8.2[facility] Comment on above:Performed By: #### LIPID, CMP, TSH #### [facility] [address] [address] [address] Edelmira HirschSodium [Moles/Vol]140 mmol/RBizorw572-823Aqn [facility] Comment on above:Performed By: #### LIPID, CMP, TSH #### [facility] [address] [address] [address] Edelmira HirschUrea nitrogen [Mass/Vol]14.0 mg/dLNormal7.0-18.0[facility]ja Medical CenterComment on above:Performed By: #### LIPID, CMP, TSH #### [facility] [address] [place] [address] Dr. Edelmira Daniel nitrogen/Creatinine [Mass ratio]16.3 mg/mgNoCleveland Clinic FoundationComment on above:Performed By: #### LIPID, CMP, TSH #### [facility] [address] [place] [address] Dr. Edelmira Conrad 95-04-7858EZK8.540 uIU/mLNormal0.358-3.740The [facility] on above:Performed By: #### LIPID, CMP, TSH #### [facility] [address] [place] [address] Dr. Edelmira Bashir ACOG PANEL 2: 30 to 65on 06-27-2022..NormalThe [facility] on above:Result Comment: Performed at: WBPerformed By: #### [id number] #### [facility] [address] [place] [address] Dr. Edelmira Sanders Gdln ACOG Itblstm95-97EjrtayUfqCleveland Clinic FoundationComment on above:Performed By: #### [id number] #### [facility] [address] [place] [address] Dr. Edelmira HirschDIAGNOSIS:CommentSelect Medical [facility], [place] on above: Result Comment: NEGATIVE FOR INTRAEPITHELIAL LESION OR MALIGNANCY. Performed at: WBPerformed By: #### [id number] #### [facility] [address] [place] [address] Dr. Edelmira Altamirano AptimaNegativeNormalNegativeUniversity Hospitals Ahuja Medical CenterComascension macomb on above:Result Comment: This nucleic acid amplification test detects fourteen high-risk HPV types (16,18,31,33,35,39,45,51,52,56,58,59,66,68) without differentiation. Performed at: =GPerformed By: #### [id number] #### [facility] [address] [place] [address] Dr. Yilan ChangHPV Genotype ReflexCommentNoAccess Hospital Dayton on above:Result Comment: Criteria not met, HPV Genotype not performed. Performed at: WBPerformed By: #### [id number] #### [facility] [address] [place] [address] Dr. Edelmira HirschMethodology:CommentSelect Medical [facility] Clinic [facility], [place] on above: Result Comment: This liquid based ThinPrep(R) pap test was screened with the use of an image guided system. Performed at: WBPerformed By: #### [id number] #### [facility] [address] [place] [address] Dr. Edelmira HirschNote:CommentSelect Medical Cleveland Clinic [facility], [place] on above:Result Comment: The Pap smear is a screening test designed to aid in the detection of premalignant and malignant conditions of the uterine cervix. It is not a diagnostic procedure and should not be used as the sole means of detecting cervical cancer. Both false-positive and false-negative reports do occur. . Performed at: WBPerformed By: #### [id number] #### [facility] [address] [place] [address] Dr. Edelmira HirschPerformed by:CommentSelect Medical [facility] Clinic [facility], [place] on above: Result Comment: Meghan Alamo, Route Agent (ASCP) Performed at: WBPerformed By: #### [id number] #### [facility] [address] [place] [address] Dr. Edelmira HirschSpecimen adequacy:CommentSelect Medical [facility] Clinic [facility], [place] on above:Result Comment: Satisfactory for evaluation. Endocervical and/or squamous metaplastic cells (endocervical component) are present. Performed at: WBPerformed By: #### [id number] #### [facility] [address] [place] [address] Dr. Edelmira Lind and Metabolite, Quant LCon 71-68-1318Qkikhfut LC<1.0 Invalid Interpretation [facility] on above:Result Comment: This test was developed and its performance characteristics determined by [facility]. It has not been cleared or approved by the Food and Drug Administration. Cotinine levels greater than 20.0 are consistent with the use of tobacco or tobacco cessation products. Performed At: [address] [id number] Speedy Rodriguez MD Ph:[phone] By: #### [id number], [id number], 6342522504, 2314473021, 53259700, 8743074 #### [facility] (DEFAULT) [address] [place] [address] 29655Dnohsdze LC<1.0Invalid Interpretation [facility] CenterComment on above:Result Comment: This test was developed and its performance characteristics determined by [facility]. It has not been cleared or approved by the Food and Drug Administration. Nicotine levels greater than 2.0 are consistent with the use of tobacco or tobacco cessation products.Performed By: #### [id number], [id number], 8875478151, 5776361409, 22484892, 8864454 #### [facility] (DEFAULT) [address] [place] [address] 17224.Auto Diff 1on 76-87-7159Fqof Wright %7 %Normal1-12[facility] HospitalComment on above:Performed By: #### [id number], [id number], 3855318401, 9054926958, 56985836, 0299898 #### [facility] (DEFAULT) [address] [place] [address] 71197Hmid Abs#0.0 n80Yelynw7.0-0.2M[facility] HospitalComment on above:Performed By: #### [id number], [id number], 4217738475, 7424125128, 69131287, 8474162 #### [facility] (DEFAULT) [address] [place] [address] 59325Izscapnbs/100 WBC (Bld)0.4 %Normal0.2-2.0[facility] Hospital Comment on above:Performed By: #### [id number], [id number], 8226412949, 7639425003, 08513779, 7985839 #### [facility] (DEFAULT) [address] [place] [address] 73666Yvx Abs#1.0 e69Srwq6.0-0.4Magrcincinnati children's hospital medical center HospitalComment on above:Performed By: #### 40168409, 8943067973, 8251056840, 3050230732, 22609991, 0184284 #### [facility] (DEFAULT) [address] [place] [address] 74693Xxgwnysfuez/100 WBC (Bld)13.5 %High0.9-4.0[facility] HospitalComment on above:Performed By: #### 51280657, 5626071761, 0831308978, 3440609281, 69198323, 0382087 #### [facility] (DEFAULT) [address] [place] [address] 05276Sdtrd Abs#2.1 c11Zjowep2.3-2.9[facility] HospitalComment on above:Performed By: #### 61004905, 0975260494, 8459218058, 6951242634, 59550542, 1830213 #### [facility] (DEFAULT) [address] [place] [address] 56790Ftygonepnhy/100 WBC (Bld)29 %Llfbdo53-26Gzmnzxfm Hospital Comment on above:Performed By: #### [id number], 6241517837, 0141886537, 4698892999, 38629505, 0897411 #### [facility] (DEFAULT) [address] [place] [address] 77100Dyen Abs#0.5 s15Rbxwui9.0-0.8Magrcincinnati children's hospital medical center HospitalComment on above:Performed By: #### 34616990, 5241683617, 9590039672, 6056555586, 97838255, 8914290 #### [facility] (DEFAULT) [address] [place] [address] 80390Qcdf Abs#3.5 f40Jghpng8.5-9.2Magruder HospitalComment on above:Performed By: #### 11870872, 8392191959, 2776786289, 7583542340, 33313467, 5883773 #### [facility] (DEFAULT) [address] [place] [address] 07978Wlfqaridciq/100 WBC (Bld)50 %Sxegug36-71Nfbskzja Hospital Comment on above:Performed By: #### 67381972, 3694821806, 1964597509, 4366571220, 66951550, 2705103 #### [facility] (DEFAULT) [address] [place] [address] 43142KYQ w/ Auto Diffon 36-33-7511Rxugpauiwjv distribution width (RBC) [Ratio]13.2 %Bnjxga61.5-15.0[facility] HospitalComment on above: Performed By: #### 32417406, 6053276820, 2005640162, 6372000502, 66207508, 0237617 #### [facility] (DEFAULT) [address] [place] [address] 42012Aofjulfbtf (Bld) [Volume fraction]38.4 %Bozqum40.7-40.4 [facility] HospitalComment on above:Performed By: #### 19362615, 3158938942, 7687894020, 0202743828, 46358954, 4418589 #### [facility] (DEFAULT) [address] [place] [address] 10694Wtpfsjnllv (Bld) [Mass/Vol]12.4 g/mEUachmm88.3-15.9 [facility] HospitalComment on above:Performed By: #### 53379012, 7579556634, 3953851785, 7916692163, 80975640, 3301214 #### [facility] (DEFAULT) [address] [place] [address] 76848Fnsri WBC7.1 s83Xibtvrv Interpretation CodePomerene HospitalComment on above:Performed By: #### 61117961, 5059572032, 0037603114, 5739316936, 53568760, 6959891 #### [facility] (DEFAULT) [address] [place] [address] 53974Czt Diff?AutoNormalOhiohealth [facility]erington [facility] Hospital HospitalComment on above: Performed By: #### 00455780, 0337639681, 4023042463, 2394534402, 54834557, 4786047 #### [facility] (DEFAULT) [address] [place] [address] (RBC) [Entitic mass]30 wuApvmvj78-25Wwsibxgb Hospital Comment on above:Performed By: #### 92054301, 7374603136, 0149368906, 6465931580, 50649673, 6867658 #### [facility] (DEFAULT) [address] [place], [place] [address]HC (RBC) [Mass/Vol]32 g/lLXtpbon84-86Hrporcdm Hospital Comment on above:Performed By: #### 09542184, 4706644701, 1673144480, 2315744896, 48178017, 1023353 #### [facility] (DEFAULT) [address] [place], [place] [address]V (RBC) [Entitic vol]94 eCQfnrwj59-122Drsysbtc Hospital Comment on above:Performed By: #### 76099304, 2313951155, 8578467045, 2680153180, 13600791, 7179137 #### [facility] (DEFAULT) [address] [place] [address] 88867Mivgxhpn320 j86Fazigm305-295Qtjzqmwe HospitalComment on above:Performed By: #### 49091950, 3714797535, 2248188886, 5301614024, 80493280, 2731594 #### [facility] (DEFAULT) [address] [place] [address] 03468Cmtqnupl mean volume (Bld) [Entitic vol]10.3 fLHigh 6.3-10.2MOhioHealth Doctors HospitalComment on above:Performed By: #### 94470222, 7312600840, 9146308351, 9875169587, 59477450, 4259490 #### [facility] (DEFAULT) [address] [place] [address] 58896HKR8.10 c78Xnvocz7.70-5.30[facility] HospitalComment on above:Performed By: #### 32859325, 1979252289, 6424721527, 6161228688, 05076592, 6831220 #### [facility] (DEFAULT) [address] [place] [address] 39950DSX7.1 x79Vwlcpu3.5-10.5[facility] HospitalComment on above: Performed By: #### 64975814, 5803906375, 2142646597, 3084755768, 52199490, 7944256 #### [facility] (DEFAULT) [address] [place] [address] 32966DYA Standardon 34-79-2267sPSP Non AA>60Invalid Interpretation [facility] CenterComment on above:Performed By: #### 81370966, 0898748021, 6186205822, 8360643512, 96922570, 2720741 #### [facility] (DEFAULT) [address] [place] [address] 95332kJUZ AA>60Invalid Interpretation [facility] Comment on above:Result Comment: Chronic Kidney disease could be indicated at eGFRs of less than 60 ml/min/1.73m2. Kidney Failure is indicated at less than 15 ml/min/1.15t4Piaomyiiw By: #### 39706536, 6422870620, 4670781286, 6189617273, 32468363, 8736268 #### [facility] (DEFAULT) [address] [place] [address] 44632Ehjucxu [Mass/Vol]3.6 g/dLNormal3.5-5.0[facility] Comment on above:Performed By: #### 18652509, 8695746773, 2763411940, 5270806801, 59742697, 8803265 #### [facility] (DEFAULT) [address] [place] [address] 64662Sjflgqh/Globulin [Mass ratio]1.1 {ratio}Low1.4-2.6MOhioHealth Doctors HospitalComment on above:Performed By: #### 20431374, 8766778439, 9386010253, 0532069330, 88454534, 3802278 #### [facility] (DEFAULT) [address] [place] [address] 66242Alk Phos61 IU/BQqwxty73-64Zpzenrni HospitalComment on above:Performed By: #### 17731210, 9820878784, 0401096868, 8864921693, 92640736, 1688739 #### [facility] (DEFAULT) [address] [place] [address] 83143OOU [Catalytic activity/Vol]14.0 U/KEieeeu55.0-54.0 [facility] HospitalComment on above:Performed By: #### 13100544, 2110349722, 3718408178, 9636931976, 63000676, 5792916 #### [facility] (DEFAULT) [address] [place] [address] 21951Bcwic gap [Moles/Vol]9.0 mmol/LNormal5.0-19.0[facility] HospitalComment on above:Performed By: #### 59893033, 3267978789, 9065653925, 8842862924, 16877487, 8905660 #### [facility] (DEFAULT) [address] [place] [address] 20618KPX [Catalytic activity/Vol]21 U/VLwuwps78-62Urenubck HospitalComment on above:Performed By: #### 72745294, 4166646287, 1420110831, 4259840040, 81582022, 1667906 #### [facility] (DEFAULT) [address] [place] [address] 13489Sltk Total0.9 mg/dLNormal0.3-1.2M[facility] HospitalComment on above:Performed By: #### 42876133, 1134903237, 3527946719, 4166978673, 06231365, 9576198 #### [facility] (DEFAULT) [address] [place] [address] 86216Vionowy [Mass/Vol]8.6 mg/dLLow8.9-10.3M[facility] Hospital Comment on above:Performed By: #### 39897432, 7009618495, 0306389118, 0399770251, 46837123, 3996948 #### [facility] (DEFAULT) [address] [place] [address] 85504Uswavaxk [Moles/Vol]103 mmol/ELymqrx902-124Vtyiurxq HospitalComment on above:Performed By: #### 04432590, 2826178440, 3996866631, 8486572065, 98858719, 7798334 #### [facility] (DEFAULT) [address] [place] [address] 19954GG3 [Moles/Vol]27 mmol/VBwisxx90-46Ehlbhbhj Hospital Comment on above:Performed By: #### 01663506, 5243646231, 7669407293, 7981137201, 09989280, 2231416 #### [facility] (DEFAULT) [address] [place] [address] 74938Baxzgojjgh [Mass/Vol]0.81 mg/dLNormal0.60-1.30[facility] HospitalComment on above:Performed By: #### 87278767, 4080778619, 7416897635, 7056892147, 19745334, 3933360 #### [facility] (DEFAULT) [address] [place] [address] 83171Hcehzgsy (S) [Mass/Vol]3.4 g/dLNormal1.5-4.3M[facility] HospitalComment on above:Performed By: #### 68784196, 5541442012, 6280838357, 6254969291, 62703990, 2442033 #### [facility] (DEFAULT) [address] [place] [address] 98548Xhsnkry [Mass/Vol]89.0 mg/gKGnbsip24.0-118.0[facility] HospitalComment on above:Performed By: #### 87946443, 9871336018, 8787173688, 8390047243, 15537896, 5604071 #### [facility] (DEFAULT) [address] [place] [address] 80858Mhjwejtlxc343 mOsm/LInvalid Interpretation CodeOhiohealth Pickerington Methodist Hospital HospitalComment on above:Performed By: #### 18710649, 9396615157, 9815035874, 1643824477, 48073022, 4832206 #### [facility] (DEFAULT) [address] [place] [address] 37244Foqnvbojt [Moles/Vol]4.0 mmol/LNormal3.6-5.1M[facility] HospitalComment on above:Performed By: #### 64480291, 8592113114, 7620278166, 5850806813, 13619403, 6723817 #### [facility] (DEFAULT) [address] [place] [address] 65310Capnzef [Mass/Vol]7.0 g/dLNormal6.5-8.1M[facility] Hospital Comment on above:Performed By: #### 46209613, 6103771825, 6832187443, 0522530823, 47506869, 2367949 #### [facility] (DEFAULT) [address] [place] [address] 80824Eynecg [Moles/Vol]135.0 mmol/AOhc408.0-144.0[facility] HospitalComment on above:Performed By: #### 05647318, 0296099696, 8379805730, 1718235371, 40728685, 3329643 #### [facility] (DEFAULT) [address] [place] [address] 02916Ayge nitrogen [Mass/Vol]12 mg/dLNormal8-26[facility] HospitalComment on above:Performed By: #### 03063287, 0704545382, 8794503929, 9476908807, 28643107, 0426422 #### [facility] (DEFAULT) [address] [place] [address] 01738Egbf nitrogen/Creatinine [Mass ratio]15.0 mg/mgNormal 4.6-16.2M[facility] HospitalComment on above:Performed By: #### 89595812, 4937207636, 0132079702, 7024739322, 02476574, 5446639 #### [facility] (DEFAULT) [address] [place] [address] 53788NfzJ7s Standardon 03-30-2021.Hb14.4Invalid Interpretation [facility] CenterComment on above:Performed By: #### 67206553, 9978708975, 6673475017, 3810272324, 87606604, 0427847 #### [facility] (DEFAULT) [address] [place] [address] 05465.Hgb A1c0.48 g/dLInvalid Interpretation CodeOhiohealth Pickerington Methodist Hospital HospitalComment on above:Performed By: #### 04308669, 4624551360, 3299367820, 0573270485, 08861132, 0922616 #### [facility] (DEFAULT) [address] [place] [address] 08511Lsjqezx [Mass/Vol]103 mg/dLInvalid Interpretation Code [facility] HospitalComment on above:Performed By: #### 38375189, 5692691174, 8055132484, 0576145593, 52132372, 5777694 #### [facility] (DEFAULT) [address] [place] [address] 12418FqE6j (Bld) [Mass fraction]5.2 %Normal4.6-6.2MOhioHealth Doctors HospitalComment on above:Performed By: #### 99794057, 4036924501, 5639306465, 3088455032, 12174096, 9109588 #### [facility] (DEFAULT) [address] [place] [address] 29913Umpae Panel Standardon 83-96-0635Dlojvzxuzks [Mass/Vol] 171.0 mg/iYFatvoo73.0-200.0[facility] HospitalComment on above:Result Comment: Desirable - Less than 200 mg/dL Borderline high risk - 200-239 mg/dL High risk - 240 mg/dL and over.Performed By: #### 57771867, 1002218948, 6426650437, 1300829541, 19906839, 8404160 #### [facility] (DEFAULT) [address] [place] [address] 13123Zaxczdtwjhz in HDL [Mass/Vol]64 mg/eWKqaeik67-70Rywkilbe HospitalComment on above:Result Comment: High risk - <40 mg/dL.Performed By: #### 53409604, 7874576711, 8824701288, 7900698809, 27392716, 8947720 #### [facility] (DEFAULT) [address] [place] [address] 55357Ypqyayfanmm in LDL [Mass/Vol]93 mg/dLNormal1-100[facility] HospitalComment on above:Result Comment: Optimal - Less than 100 mg/dL Borderline high risk - 130-159 mg/dL High risk - 160-189 mg/dL.Performed By: #### 69406329, 0311852122, 1665398412, 2505474903, 33185494, 4338484 #### [facility] (DEFAULT) [address] [place] [address] 61825Scfcxdxikib.total/Cholesterol in HDL [Mass ratio]2.7 {ratio}Normal0.0-4.5[facility] HospitalComment on above:Performed By: #### 95562537, 3751338805, 3650316427, 3269731165, 62111349, 4681921 #### [facility] (DEFAULT) [address] [place] [address] 30583Hqgjdjgcbmcx [Mass/Vol]73.0 mg/dLNormal0.0-150.0[facility] HospitalComment on above:Performed By: #### 21622399, 9495595118, 1313933819, 7481959758, 47836858, 5287543 #### [facility] (DEFAULT) [address] [place] [address] 93323EMGD.15 mg/dLNormal5-40[facility] HospitalComment on above: Performed By: #### 66067183, 8930181130, 1399013516, 3155383593, 67389662, 3401140 #### [facility] (DEFAULT) [address] [place] [address] 69423Rbndizbn and Metabolite, Quant LCon 31-08-9242Zcbcixdo LC <1.0Invalid Interpretation [facility] CenterComment on above:Result Comment: This test was developed and its performance characteristics determined by [facility]. It has not been cleared or approved by the Food and Drug Administration. Cotinine levels greater than 20.0 are consistent with the use of tobacco or tobacco cessation products. Performed At: [address] [id number] Speedy Rodriguez MD Ph:[phone] By: #### [id number], 1877274198, 1886056560, 7338584279, 94837946, 9289004 #### [facility] (DEFAULT) [address] [place] [address] 25592Farxytdl LC<1.0Invalid Interpretation [facility] CenterComment on above:Result Comment: This test was developed and its performance characteristics determined by [facility]. It has not been cleared or approved by the Food and Drug Administration. Nicotine levels greater than 2.0 are consistent with the use of tobacco or tobacco cessation products.Performed By: #### 04609414, 4143547869, 0793914224, 6972359618, 10576516, 3294982 #### [facility] (DEFAULT) [address] [place] [address] 95793.Auto Diff 1on [id number] Wright %8 %Normal1-12[facility] HospitalComment on above:Performed By: #### [id number], [id number], [id number], [id number], [id number] #### [facility] (DEFAULT) [address] [place] [address] [id number] Abs#0.0 n82Ghvowt2.0-0.2[facility] HospitalComment on above:Performed By: #### [id number], [id number], [id number], [id number], [id number], [id number] #### [facility] (DEFAULT) [address] [place] [address] [id number]/100 WBC (Bld)0.6 %Normal0.2-2.0[facility] Hospital Comment on above:Performed By: #### [id number], [id number], [id number], [id number], [id number], [id number] #### [facility] (DEFAULT) [address] [place] [address] 68127Uvi Abs#0.7 e60Zyzy7.0-0.4Magruder HospitalComment on above:Performed By: #### 8818378, 33628002, 4164813899, 0773691749, 4925923947, 69143709 #### [facility] (DEFAULT) [address] [place] [address] 35475Bsncyfvrqia/100 WBC (Bld)13.1 %High0.9-4.0Magruder HospitalComment on above:Performed By: #### 8806424, 96982966, 1332937129, 6589238744, 9349725470, 18181623 #### [facility] (DEFAULT) [address] [place] [address] 05127Nvzcw Abs#1.8 i92Pyehlf4.3-2.9Magruder HospitalComment on above:Performed By: #### 3196629, 76913206, 8321861286, 1936731984, 8968419827, 02177559 #### [facility] (DEFAULT) [address] [place] [address] 56283Euqxietkimu/100 WBC (Bld)33 %Eapmwr19-40Sbmnbgpv Hospital Comment on above:Performed By: #### 1098691, 87999665, 7705344143, 7433899034, 8249671926, 51928711 #### [facility] (DEFAULT) [address] [place] [address] 48146Svav Abs#0.4 d70Vkxaxq2.0-0.8Magruder HospitalComment on above:Performed By: #### 7305328, 18136625, 2957644722, 3133667936, 3087623349, 25091843 #### [facility] (DEFAULT) [address] [place] [address] 66626Qchp Abs#2.4 u36Bcttqm3.5-9.2[facility] HospitalComment on above:Performed By: #### 8566861, 74130903, 6602634928, 5595467189, 4979298118, 31226125 #### [facility] (DEFAULT) [address] [place] [address] 41912Lotzscviqtm/100 WBC (Bld)45 %Ozyxae72-61Ledoyriw Hospital Comment on above:Performed By: #### 8782131, 00488317, 5776386951, 4355934613, 8560506534, 84470109 #### [facility] (DEFAULT) [address] [place] [address] 02567ZEK w/ Auto Diffon 29-08-3434Laoiiljtkiy distribution width (RBC) [Ratio]13.4 %Gmvayy85.5-15.0Pomerene HospitalComment on above: Performed By: #### 6698555, 13216757, 5786923167, 3454942075, 9258928492, 95444649 #### [facility] (DEFAULT) [address] [place] [address] 71293Vwkxnbnrzp (Bld) [Volume fraction]38.4 %Eqkpsb57.7-40.4 P[facility] HospitalComment on above:Performed By: #### 3495474, 24991283, 9269103619, 5527292624, 9022168562, 61154596 #### [facility] (DEFAULT) [address] [place] [address] 34136Odxkzknzfk (Bld) [Mass/Vol]12.6 g/aHUftrxa58.3-15.9 [facility] HospitalComment on above:Performed By: #### 6898042, 25671357, 5884537852, 3476418463, 0849801155, 05872517 #### [facility] (DEFAULT) [address] [place] [address] 97642Aarbv WBC5.3 q80Seoylet Interpretation CodePomerene HospitalComment on above:Performed By: #### 3436210, 78474029, 2438452895, 8638185600, 9871775427, 76623732 #### [facility] (DEFAULT) [address] [place] [address] 67818Ecs Diff?AutoNormalOhiohealth [facility]ering[facility] HospitalComment on above: Performed By: #### 4655820, 85101575, 8424218483, 7397949819, 7183546904, 35849756 #### [facility] (DEFAULT) [address] [place] [address] (RBC) [Entitic mass]29 qqDtbbfs69-87Ljwovudb Hospital Comment on above:Performed By: #### 2357405, 83733254, 6302747550, 8774967357, 7538645335, 86003661 #### [facility] (DEFAULT) [address] [place], [place] [address]HC (RBC) [Mass/Vol]33 g/oFXxppfp49-67Qjegbsgy Hospital Comment on above:Performed By: #### 6021488, 81650133, 7164981894, 7452968125, 2513520093, 96178020 #### [facility] (DEFAULT) [address] [place] [address] 86766CXB (RBC) [Entitic vol]89 bOAbqkxg51-889Bkbjjkiy Hospital Comment on above:Performed By: #### 7502151, 49597091, 6775364209, 6519220484, 7821692760, 42127680 #### [facility] (DEFAULT) [address] [place] [address] 92947Lfxjuomz302 k55Ceygwn181-541Uhhmyyjl HospitalComment on above:Performed By: #### 5666736, 40730356, 2155091812, 6638762794, 5434403204, 96287916 #### [facility] (DEFAULT) [address] [place] [address] 62971Wkcbecsu mean volume (Bld) [Entitic vol]10.1 fLNormal 6.3-10.2M[facility] HospitalComment on above:Performed By: #### 2878852, 39638870, 6909017086, 3770741432, 3919441904, 86667079 #### [facility] (DEFAULT) [address] [place] [address] 94332UFA6.32 h47Crrpdg5.70-5.30Pomerene HospitalComment on above:Performed By: #### 1136931, 71410908, 5666946765, 6048309688, 2371552272, 66575483 #### [facility] (DEFAULT) [address] [place] [address] 70556BNB7.3 n33Kkonxb6.5-10.5Pomerene HospitalComment on above: Performed By: #### 3651981, 17329127, 2014347623, 8444594857, 5932055138, 52953913 #### [facility] (DEFAULT) [address] [place] [address] 41151WSZ Standardon 31-71-1626oZER Non AA>60Invalid Interpretation [facility] CenterComment on above:Performed By: #### 7468817, 28840439, 6074889340, 9821615025, 1778983414, 09975005 #### [facility] (DEFAULT) [address] [place] [address] 69529eSOY AA>60Invalid Interpretation [facility] Comment on above:Result Comment: Chronic Kidney disease could be indicated at eGFRs of less than 60 ml/min/1.73m2. Kidney Failure is indicated at less than 15 ml/min/1.51a5Zyrovfxcu By: #### 4949849, 84913190, 0464075802, 9854756333, 2862635017, 30187103 #### [facility] (DEFAULT) [address] [place] [address] 20760Bxlsmik [Mass/Vol]3.8 g/dLNormal3.5-5.0[facility] Comment on above:Performed By: #### 7627020, 78299920, 6673349097, 5554806981, 7738729392, 64792354 #### [facility] (DEFAULT) [address] [place] [address] 04444Jtoqbik/Globulin [Mass ratio]1.1 {ratio}Low1.4-2.6Magrcincinnati [facility] HospitalComment on above:Performed By: #### 8265017, 69595588, 2171085645, 0750924079, 9246071037, 71677740 #### [facility] (DEFAULT) [address] [place] [address] 94613Mpz Phos40 IU/ANfwwtf96-03Crwrutwm HospitalComment on above:Performed By: #### 1634959, 33726020, 8710126334, 5099502642, 9668095421, 05582803 #### [facility] (DEFAULT) [address] [place] [address] 27666LSS [Catalytic activity/Vol]13.0 U/LLow14.0-54.0[facility] HospitalComment on above:Performed By: #### 0757141, 62831959, 1074813689, 1371940865, 6689339884, 19105826 #### [facility] (DEFAULT) [address] [place] [address] 02612Jnzxn gap [Moles/Vol]11.0 mmol/LNormal5.0-19.0[facility] HospitalComment on above:Performed By: #### 3199997, 95987545, 3154594641, 6227696513, 7210990701, 73266875 #### [facility] (DEFAULT) [address] [place] [address] 79950ABL [Catalytic activity/Vol]19 U/CBrixvu99-15Zomjjsbv HospitalComment on above:Performed By: #### 8064955, 50894445, 6267154272, 0355282357, 0463889900, 45631140 #### [facility] (DEFAULT) [address] [place] [address] 94574Xtgk Total1.1 mg/dLNormal0.3-1.2Magrcincinnati children's hospital [facility] center HospitalComment on above:Performed By: #### 0038800, 47618204, 0822533459, 1112699180, 2178534296, 28657891 #### [facility] (DEFAULT) [address] [place] [address] 54581Eajdesa [Mass/Vol]9.1 mg/dLNormal8.9-10.3MOhioHealth [facility] Comment on above:Performed By: #### 9787775, 27139459, 4339681993, 8110713631, 5901426919, 23232535 #### [facility] (DEFAULT) [address] [place] [address] 72614Bmmhcqem [Moles/Vol]107 mmol/JCwxaur997-496Yyyfcwev HospitalComment on above:Performed By: #### 6889902, 93402099, 0609673906, 8952622556, 7466386134, 04558413 #### [facility] (DEFAULT) [address] [place] [address] 91015QM4 [Moles/Vol]23 mmol/DMnfkhc50-98Xchpvrun Hospital Comment on above:Performed By: #### 4040075, 63491444, 3229058155, 4064707124, 2056839884, 59533790 #### [facility] (DEFAULT) [address] [place] [address] 90917Iurpubpqya [Mass/Vol]0.75 mg/dLNormal0.60-1.30[facility] HospitalComment on above:Performed By: #### 5957433, 81102007, 1476103817, 3825874990, 8163909153, 35032197 #### [facility] (DEFAULT) [address] [place] [address] 94911Jcfkxnmr (S) [Mass/Vol]3.4 g/dLNormal1.5-4.3M[facility] HospitalComment on above:Performed By: #### 3416487, 76707626, 0500803652, 3479704276, 0886405063, 62254753 #### [facility] (DEFAULT) [address] [place] [address] 07655Lpgqgng [Mass/Vol]98.0 mg/iZJbniyk73.0-118.0[facility] HospitalComment on above:Performed By: #### 8368346, 72530371, 8594435092, 7282125470, 3587301139, 19963111 #### [facility] (DEFAULT) [address] [place] [address] 49754Fzatjwwmws675 mOsm/LInvalid Interpretation CodeOhiohealth Pickerington Methodist Hospital HospitalComment on above:Performed By: #### 4858181, 98132071, 0155766181, 6248478224, 4520856950, 61857549 #### [facility] (DEFAULT) [address] [place] [address] 28773Axwikjjts [Moles/Vol]4.0 mmol/LNormal3.6-5.1M[facility] HospitalComment on above:Performed By: #### 7766215, 98003894, 7433833568, 9951531155, 0328400173, 25418692 #### [facility] (DEFAULT) [address] [place] [address] 27476Lgbopxj [Mass/Vol]7.2 g/dLNormal6.5-8.1[facility] Hospital Comment on above:Performed By: #### 6965561, 00913497, 0813962738, 2515832331, 4500216653, 51263011 #### [facility] (DEFAULT) [address] [place] [address] 38408Tvxjnk [Moles/Vol]137.0 mmol/JOngwar240.0-144.0[facility] HospitalComment on above:Performed By: #### 6881487, 64309165, 5751474523, 3896469882, 5481359151, 38704532 #### [facility] (DEFAULT) [address] [place] [address] 67286Fhfd nitrogen [Mass/Vol]20 mg/dLNormal8-26[facility] HospitalComment on above:Performed By: #### 9294051, 96461574, 5072544584, 7848359447, 4238744230, 76009804 #### [facility] (DEFAULT) [address] [place] [address] 41970Weiv nitrogen/Creatinine [Mass ratio]27.0 mg/mgHigh 4.6-16.2[facility] HospitalComment on above:Performed By: #### 7810252, 64031779, 5645845896, 0012719922, 3193621049, 98059076 #### [facility] (DEFAULT) [address] [place] [address] 82130LqpU5a Standardon 04-10-2020.Hb14.7Invalid Interpretation CodePomerene HospitalComment on above:Performed By: #### 19313451, 1243616500, 1785740710, 2875921026, 25055730, 8305990 #### [facility] (DEFAULT) [address] [place] [address] 59048.Hgb A1c0.51 g/dLInvalid Interpretation [facility] CenterComment on above:Performed By: #### 07037144, 1648573041, 9788382872, 8087745420, 31290081, 6798338 #### [facility] (DEFAULT) [address] [place] [address] 17736Rxjxwdq [Mass/Vol]106 mg/dLInvalid Interpretation Code [facility] HospitalComment on above:Performed By: #### 37101836, 5561459823, 9921746250, 2288775345, 85578670, 9933396 #### [facility] (DEFAULT) [address] [place] [address] 35437EyZ2l (Bld) [Mass fraction]5.3 %Normal4.6-6.2M[facility] HospitalComment on above:Performed By: #### 33028338, 4178514462, 7418540215, 7334770913, 39612170, 6376529 #### [facility] (DEFAULT) [address] [place] [address] 38445Jgcdc Panel Standardon 50-02-6423Lobjuktcwzt [Mass/Vol] 162.0 mg/tDKlurft47.0-200.0[facility] HospitalComment on above:Result Comment: Desirable - Less than 200 mg/dL Borderline high risk - 200-239 mg/dL High risk - 240 mg/dL and over.Performed By: #### 0561550, 52937485, 1706682991, 3603531868, 1512512984, 72474350 #### [facility] (DEFAULT) [address] [place] [address] 87612Ymmtfngqfnx in HDL [Mass/Vol]64 mg/jNXuhpwx72-24Eabbcjyu HospitalComment on above:Result Comment: High risk - <40 mg/dL.Performed By: #### 3297322, 01742602, 2312645396, 1259760852, 1196271478, 76307257 #### [facility] (DEFAULT) [address] [place] [address] 60889Xpgkwwalcuh in LDL [Mass/Vol]90 mg/dLNormal1-100[facility] HospitalComment on above:Result Comment: Optimal - Less than 100 mg/dL Borderline high risk - 130-159 mg/dL High risk - 160-189 mg/dL.Performed By: #### 4862317, 51541284, 9391111693, 2162076555, 3518504233, 68535072 #### [facility] (DEFAULT) [address] [place] [address] 18850Ynzlyfqcmls.total/Cholesterol in HDL [Mass ratio]2.5 {ratio}Normal0.0-4.5[facility] HospitalComment on above:Performed By: #### 0452110, 61870438, 6539467446, 2830428366, 8146874076, 72372754 #### [facility] (DEFAULT) [address] [place] [address] 56433Rdwfiebwduzs [Mass/Vol]38.0 mg/dLNormal0.0-150.0[facility] HospitalComment on above:Performed By: #### 7436875, 65337623, 4055421424, 8338288625, 7014129007, 95783176 #### [facility] (DEFAULT) [address] [place] [address] 85178AMHT.8 mg/dLNormal5-40[facility] HospitalComment on above: Performed By: #### 8942108, 80628326, 0856996532, 5655841973, 1621279774, 87824301 #### [facility] ([facility]) [address] [place] [address] Vital Signs Date TimeVital SignValuePerforming HthokdcsiIvkidhty90-19-1963 15:10-0400Body .56 cmTess Leahy MD Work Phone: [facility]06-17-2025 15:10-0400 Body mass index (BMI) [Ratio]22.5 kg/k0ChahijTess Leahy MD Work Phone: [phone]06-17-2025 15:10-0400 Body vcorrc91.47 kgTess Leahy MD Work Phone: [phone]06-17-2025 15:10-0400 Diastolic blood diyvnior53 mm[Hg]Tess Leahy MD Work Phone: [phone]06-17-2025 15:10-0400 Heart rate55 /Carola Leahy MD Work Phone: [phone]06-17-2025 15:10-0400 Systolic blood qtiompdc43 mm[Hg]Tess Leahy MD Work Phone: [phone] [place], [place] 7646205-12-2025 14:48-0400 Body pgetjj785.56 cmAnup Pearl MD Work Phone: [phone]05-12-2025 14:48-0400 Body mass index (BMI) [Ratio]22.5 kg/i5QdvhpgxAnup Pearl MD Work Phone: [phone]05-12-2025 14:48-0400 Body pnyvca38.53 kgAnup Pearl MD Work Phone: [phone]05-12-2025 14:48-0400 Diastolic blood jnblcbku92 mm[Hg]Anup Pearl MD Work Phone: [phone])[address]05-12-2025 14:48-0400 Heart rate69 /minAnup Pearl MD Work Phone: [facility]05-12-2025 14:48-0400 SaO2% (BldA) [Mass fraction]97 %Anup Pearl MD Work Phone: [phone]05-12-2025 14:48-0400 Systolic blood ndkurzkt779 mm[Hg]Anup Pearl MD Work Phone: [phone]01-22-2025 14:58-0500 Body mass index (BMI) [Ratio]22.34 kg/b8Brxda Marcus DO Work Phone: [phone] LouisNskmdkernj30-32-8622 14:58-0500Body wzhivi43.02 kgCorey Marcus DO Work Phone: [phone] LouisTychnugnvv47-05-2098 14:58-0500Diastolic blood uvixstqn88 mm[Hg]Triston Marcus DO Work Phone: [phone]-[facility] LouisCvipwtvqbc19-02-2445 14:58-0500Systolic blood epvbjmbu009 mm[Hg]Triston Marcus DO Work Phone: [phone]11-18-2024 14:43-0500Body xbrqpy571.56 cmTess Leahy MD Work Phone: [phone]11-18-2024 14:43-0500 Body mass index (BMI) [Ratio]22.5 kg/f0PlmlhrTess Leahy MD Work Phone: [phone] [place], [place] [address]64[address]11-18-2024 14:43-0500 Body hbazak73.59 kgTess Leahy MD Work Phone: [phone]11-18-2024 14:43-0500 Diastolic blood wwtziefr39 mm[Hg]Tess Leahy MD Work Phone: [phone]11-18-2024 14:43-0500 Heart rate55 /minTess Leahy MD Work Phone: [phone]11-18-2024 14:43-0500 Systolic blood mm[Hg]Tess Leahy MD Work Phone: [facility]06-03-2024 15:46-0400 Body unpgcv839.56 cmMD Alis Alt-Aniket Work Phone: [facility]06-03-2024 15:46-0400 Body mass index (BMI) [Ratio]22.7 kg/m2MD Alis Alt-Aniket Work Phone: [facility]06-03-2024 15:46-0400 Body vcnagp40.04 kgMD Alis Alt-Aniket Work Phone: [facility]06-03-2024 15:46-0400 Diastolic blood lomfxpdc30 mm[Hg]MD Alis Park-Aniket Work Phone: [facility]06-03-2024 15:46-0400 Heart rate54 /minMD Alis Alt-Aniket Work Phone: [facility]06-03-2024 15:46-0400 Systolic blood zybhighm226 mm[Hg]MD Alis Park-Aniket Work Phone: [facility]03-13-2024 14:03-0400 Blood Pressure LocationMichael NILL [facility] Bikukngl10-50-8405 14:03-0400Diastolic blood gprhelpn94 mm[Hg]Anup NILL [facility] Snblfkkb84-68-5943 14:03-0400Heart rate 72 /minMichael NILL [facility] Hslklrgt58-39-0745 14:03-0400 Respiratory rate16 /minMichael NILL [facility]03-13-2024 14:03-0400Systolic blood geckbjbj083 mm[Hg]Anup NILL [facility] [place] Encounters Encounter DateEncounter TypeCare ProviderFacilityStart: 04-23-2025 End: 33-10-8987rbkrhuzdysQnfcnww R Nill-LAB Path Spec [place] HospStart: 04-23-2025 End: 33-51-0456Ojgczaon ReferredAnup Pearl MD FACS-LAB Path Spec [place] HospStart: 04-23-2025 End: 74-15-2192ipimfsbqgqZcbbjii R NILLFacility:CD:[id number]: 01-15-2025 End: 01-24-2331lzigndixmfQwonem E Braun MD Work Phone: [facility] Work Phone: Start: 01-15-2025 End: 24-59-8164Amxieeff ReferredAnup Pearl MD FACS-LAB Path Spec [place] HospStart: 01-15-2025 End: 74-38-8423fuyfdyuhbjRgxfbbn R NILLFacility:CD:[id number]: 12-04-2024 Non-patient / Non-visitTess Leahy MD-[facility] Work Phone: Start: 12-03-2024 End: 99-43-6340Yudxbvj encounter procedureTess Leahy MD-[facility] Work Phone: Start: 12-03-2024 End: 61-42-3641Labgaqh encounter statusTess Leahy MDSelect Medical [facility] - Dublintart: 11-20-2024 End: 92-08-0265Zrytihakr Result EncounterCorey Marcus DO Work Phone: [facility] External Department UnsolicitedStart: 11-20-2024 End: 10-98-1051Lxbofjptf Result EncounterCorey Marcus DO Work Phone: [facility] External Department UnsolicitedStart: 10-28-2024 End: 47-62-6087kjzqnlhamtMjebhnm Nill MD Work Phone: [facility] Work Phone: Start: 10-28-2024 End: 50-22-2919Rzgbqjz encounter procedureAnup Pearl MD Work Phone: [facility] Work Phone: Start: 68-90-2043Yni-patient / Non-visitAnup Pearl MD Work Phone: [facility] Work Phone: Start: 10-02-2024 End: 69-19-8952izrcusvxwtYzjzhzl R [facility]ill[facility] Work Phone: Start: 10-02-2024 End: 98-87-0590Axbgymqf ReferredAnup Pearl MD Work Phone: [facility]-LAB Path Spec [place] HospStart: 05-54-2180Uzf-patient / Non-visitAnup Pearl MD Work Phone: [facility] Work Phone: Start: 10-02-2024 End: 75-51-0677nrrpqzlghkQgosknp R NILLFacility:CD:[id number]: 09-24-2024 End: 96-19-8240abvnhmroocXjuorhf R NILLFacility: [place]vueStart: 07-10-2024 End: 28-75-9351Acmfxro encounter procedureCorey Marcus DO Work Phone: [facility] Work Phone: Start: 07-10-2024 End: 53-17-5337Secamgoy flow sheetCorey Marcus DO Work Phone: [facility] BCP OBComment on above:Well woman exam with routine gynecological exam; Breast cancer screening by mammogram; Hot flashesStart: 07-10-2024 End: 45-96-8872rztmqjjtpvILUIV FAZIONot AvailableStart: 07-10-2024 End: 54-78-2932Cimumx flowsheetCorey Marcus DO Work Phone: [facility] BCP OBStart: 07-10-2024 End: 76-50-8594Hnxwer flowsheetCorey Marcus DO Work Phone: [facility] BCP OBStart: 07-10-2024 End: 69-03-0608Fjkruttll Result EncounterCorey Marcus DO Work Phone: [facility] External Department UnsolicitedStart: 05-06-2024 End: 36-81-0720ctjjgmuexdFkiity E Braun MD Work Phone: [facility] Work Phone: Start: 05-06-2024 End: 65-37-2406Yiayxew encounter procedureTess Leahy MD Work Phone: [facility] Work Phone: Start: 02-14-2024 End: 89-85-1041hhdbgapzkwXD Marcia E Braun Work Phone: [facility] Work Phone: Start: 02-14-2024 End: 01-84-5856Rwajleyf ReferredMD Tess Leahy Work Phone: [facility]-LAB Path Spec [place] HospStart: 24-55-7500Wrh-patient / Non-visitTess Leahy MD Work Phone: [facility] Work Phone: Start: 01-30-2024 End: 81-98-9440ifhhvcpbgiDSJSOSV S WRIGHTNot AvailableStart: 11-23-2023 End: 18-33-9407Fkflwcqmc Result EncounterCorey Marcus DO Work Phone: [facility] External Department UnsolicitedStart: 11-23-2023 End: 67-09-4753Aekqmkxlf Result EncounterCorey Marcus DO Work Phone: [facility] External Department UnsolicitedStart: 11-20-2023 Patient encounter statusMD Alis Alt-Aniket Work Phone: [facility]art: 11-20-2023 End: 96-54-5100avlwaumckdXS Alis Alt-Aniket Work Phone: [facility] Work Phone: Start: 11-20-2023 End: 56-98-1399Szdarjpuk for general adult medical examination without abnormal findingsMD Alis Alt-Aniket Work Phone: [facility]: 11-20-2023 End: 95-31-8432Vfesfdh encounter procedureMD Alis Alt-Aniket Work Phone: [facility] Work Phone: Start: 18-28-8332Wtu-patient / Non-visitMD Alis Alt-Aniket Work Phone: [facility] Work Phone: Start: 03-88-1006Zov-patient / Non-visitMD Alis Alt-Aniket Work Phone: [facility] Work Phone: Start: 10-11-2023 End: 21-52-0180cvtbfucfkdWR Alis Alt-Aniket Work Phone: [facility] Work Phone: Start: 10-11-2023 End: 45-50-4340Pypezvdw ReferredMD Alis Alt-Aniket Work Phone: [facility] Path Spec [facility] HospStart: 86-33-5515Hfy-patient / Non-visitMD Alis Alt-Aniket Work Phone: [facility] Work Phone: Start: 08-30-2023 End: 24-84-9419Vtkgmiz encounter procedureMichael R NILL General Surgery Nill/Said [facility] Start: 06-29-2023 End: 81-52-6600Uogziulvk Result EncounterCorey Marcus DO Work Phone: noms External Department UnsolicitedStart: 06-29-2023 End: 35-59-9339Jwsormxao Result EncounterCorey Marcus DO Work Phone: noms External Department UnsolicitedStart: 11-11-2022 End: 83-39-9027taeykfkdspCR STEVE DAS .Facility:V7Pydiq: 11-05-2022 Encounter for general adult medical examination without abnormal findingsDR TESS [facility] HospitalStart: 11-01-2022 End: 36-74-6280voctbvhfhtIJ MARCIA E BRAUNFacility:B3Yvtmu: 11-01-2022 End: 27-35-8276Caoruogos for general adult medical examination without abnormal findingsDR TESS LEAHYFacility:P2Fhmso: 06-23-2022 End: 60-46-8944zqlmsenatbLO STEVE DAS .Facility: Procedures DateProcedureProcedure DetailPerforming ClinicianStart: 10-72-4780QS TOMOSYNTHESIS SCREENING BICorey Marcus DO Work Phone: Start: 59-51-2712ZtjnxjgdwzwJwpgv Marcus DO Work Phone: Start: 42-13-4082VWR,APTIMA HPV,AGE GDLNCorey Marcus DO Work Phone: Start: 23-85-5784Ejdsixzygza observation [Identifier] in Cervix by Cyto stainCorey Marcus DO Work Phone: Start: 63-38-9060IF TOMOSYNTHESIS SCREENING BICorey Marcus DO Work Phone: Start: 69-52-0734QczunufmaznSvrkq Marcus DO Work Phone: Start: 00-59-5260GQ DEXA AXIAL SKELETONCorey Marcus DO Work Phone: Start: 14-62-4707Qqgaqjfyvvy observation [Identifier] in Cervix by Cyto stainCorey Marcus DO Work Phone: Start: 72-67-1181YggdwmldigfUchsl Marcus DO Work Phone: Start: 62-71-3139FmkcyrwggdpMfskprd NILL Start: 39-67-6207DqgjmnmwpmnzfdpfhbwdyyknyyKlhzrpg NILL Start: 95-47-3680XhgguohdskdIwncmef NILL Start: 72-24-7270YdfqenhkwjmfvzqvfmhdbefrnqCnwsngz NILL Cesarean sectionMichael NILL CholecystectomyMichael NILL Excision of ganglion of footMichael NILL Plan of Treatment DateCare ActivityDetailAuthorStart: 38-55-2360Gfqbpilhn for malignant neoplasm of cervixNOMS HealthcareStart: 74-90-8935Obtumvenv for malignant neoplasm of colonNOMS HealthcareStart: 65-93-4855Wmwsqccst for malignant neoplasm of cervix [facility] HealthcareStart: 07-14-2025 End: 27-42-8517Pztyhef encounter procedureNOMS BCP OBStart: 77-20-4603LdmiwjfccSelect Medical [facility] - Dublintart: 83-61-4308Fbvlhiczd for malignant neoplasm of breastMammogramNOMS HealthcareStart: 07-10-2024 End: 05-83-5447Ujqnejf encounter worlopmtk29/22/2025 2:40 PM EST Office Visit [facility] [address] [place] [address] Triston Velazquez, DO [address] [place] [address] ArrivedNOGARDENS [facility] [place] OBComment on above:ArrivedStart: 07-10-2024 End: 28-87-1181RC Breast - bilateral ScreeningBilateral screening mammogram Imaging Routine Breast cancer screening by mammogram Expected: 07/10/2024, Expires: 09/07/[facility] Work Phone: comment on above:Expected: 07/10/2024, Expires: 09/07/2025Start: 63-86-2494Gkorxlfmz vaccinationInfluenza Vaccine (#1)[facility] HealthcareStart: 67-18-8294Ujnhfyzkw for malignant neoplasm of cervixHPV/Cotest [facility] HealthcareStart: 71-06-0095Behtjeyth for malignant neoplasm of colonNOLima Memorial HospitalTHIN PREP TIS PAP AND HR HPV DNATHIN PREP TIS PAP AND HR HPV DNA Pathology and Cytology Routine Well woman exam with routine gynecological exam Ordered: 07/10/2024[facility] LouisComment on above:Ordered: 07/10/2024 Immunizations Immunization DateImmunizationNotesCare TkhaypodUvefvvgn52-34-6485wujzyghwl virus vaccine, unspecified formulationCorey Marcus DO Work Phone: [facility] LouisHrokmytqrs88-18-0941yiyyqoiya virus vaccine, unspecified formulationMichael NILL [facility] Ihdktjer15-67-6770DLKZ-ReR-7 (COVID-19) Ad26 vaccine, recombinantMichael NILL [phone]-ErficCleveland Clinic [facility] [place] Comment on above:Result Comment: 2023-08-21: [id number] Payers DatePayer CategoryPayerPolicy [id number] [place] Blue ShieldBS Member Subscriber Plan / Payer (Effective 2022-Present) Name: Ioana Marie Member ID: [id number] Relation to Subscriber: Self Name: Ioana Marie Subscriber ID: [id number] PayerID: Not on file Type: Not on file Address: [facility] [id number] [place] [id number] [id number] 2.0.1.757990.3.579.2. [id number] 2.0.1.960698.3.57[id number] 2.0.1.466185.3.57[id number] 2..1.495468.3.57[id number] 2.0.1.916104.3.57[id number] 2.0.1.481065.3.57[id number] 2..1.301090.3.579.[id number] 2.0.1.012663.3.57[id number] 2..1.0[id number] [id number]-9y2e-x445-[id number] 2.840.1.1[id number] 2.0.1.935162.3.579.2.531 [id number] 2.840.1.005995.3.579.2.531 Social History DateTypeDetailFacilityStart: 08-30-2023 End: 07-47-3440Rozsgzo smoking statusEx-smoker (finding)[facility] [place] Start: 62-63-6819Lqmrsnq smoking statusNeverGeneral Surgery Mary Rutan HospitalueStart: 05-31-2023 End: 83-56-5341Dzt Assigned At [facility] CenterStart: 91-87-5216Ybw Assigned At [facility] Andersontart: 05-06-2024 End: 44-99-6195XaoYcqavi (finding)[facility] Dublintart: 52-38-7736Ealdcfp smoking status NHISNever smoked tobaccoNOKY HealthcareStart: 06-26-2023 End: 85-88-5812Pgnqwjrxl beverage intakeCurrent drinker of alcohol (finding)[facility] HealthcareStart: 05-31-2023 End: 46-98-6378Zllsuqe of Social functionNOMS HealthcareStart: 13-64-1710Aallhko CommentOccasional alcohol useNOMS HealthcareStart: 47-95-9124Ylf assigned at birthNot on fileACADIA HEALTHCARE HealthcareNEGATED: Highlighted [facility] Functional Status YkynSqpdcglpurMxyutlLuvuxnbb10-25-4531Stvjrgxpqs StatusN/AGeneral Surgery [place] Clinical Notes 02-14-2013 to 10-28-2024 Note Date & IwdzZidmJvljqcuy59-15-9216 Evaluation note* Diagnosis Onset Date Resolution Status Admit Date Contact dermatitis acuteMay 2024 2:41pmRhinitis, allergicacuteMay 2024 2:41pmContact dermatitisacuteJune 2024 3:02pmHypothyroidism, unspecifiedAugust 2013acuteJune 2024 3:02pmWellness examinationacuteJune 2024 3:02pm [facility] Work Phone: [phone]) 359-782004-08-2025 NoteGeneral Surgery Office/Clinic Note Chief Complaint consultation for epigastric pain and bowel changes HPI Staff 53 year old female presents on self referral consultation for abdominal pain, bloating and constipation. Last colonoscopy completed 2017 with diverticulosis. History of Present Illness 53 [...] Substance Abuse, 08/30/2023 Tobac (more content not included)...[facility] PrebleComment on above: Result Comment: Electronically Signed By: PRESTON ROSALES, Anup Ernst\Date and Time Signed: 09/24/24 13:34 [id number] History of Present illness Narrative* Naty Graham, MICHA - 07/10/2024 2:40 PM EST Reason for [...] nursing note reviewed. Exam conducted with a vascular manager present. Vitals: Estimated body mass index is [...] of: Triston Velazquez DO documented in this encounterTen[facility] LouisBkezztzpeg40-16-4359 Evaluation note* Diagnosis Onset Date Resolution Status Hypothyroidism, unspecified February 14, 2013 acuteWellness examinationacute [facility] Work Phone: Evaluation + Plan note No data available for this section [facility] [place] Evaluation noteNo assessment information available [facility] Work Phone: Evaluation note* Diagnosis Onset Date Resolution Status Admit Date Concern about memory acuteNovember 2023 2:28pmHeadacheacuteNovember 2023 2:28pm [facility] Work Phone: Evaluation note* Diagnosis Well woman exam with routine gynecological exam Routine gynecological examination Breast cancer screening by mammogram Hot flashes documented in this encounter [facility] Discharge instructions No data available for this section [facility] [place] Progress note No data available for this section [facility] [place] Reason for referral (narrative)No reason for referral information availableMercy Health St. [facility] Work Phone: Summary Purpose Family History No [...] December 03, 2024 3:02 pm Hypothyroidism, unspecified Jennifer 17th, 2 025 3:02pm Wellness examination December 03, [...] section and content) DATE CREATED AUTHOR 04/04/2021 [facility] DATE CREATED AUTHOR AUTHOR'S ORGANIZ ATION 11/25/2022 [facility] DATE CREATED AUTHOR AUTHOR'S ORGANIZ ATION 07/12/2024 [facility] DATE CREATED AUTHOR AUTHOR'S ORGANIZ ATION 04/29/2025 [facility] DATE CREATED AUTHOR AUTHOR'S ORGANIZ ATION 04/30/2025 [facility] Patient Care team informatio n (unrecognized section [...] Start: February 14, 2024 End: February 14, 2024Anup Pearl MD FACSAttending ProviderActiveStart: February 14, 2024 [...] DateEnd Date Tess Leahy MD [address] [place] [facility] [place] [address] PCP - [facility] Medicine06/26/23Team MemberRelationshipSpecialtyStart DateEnd Date Tess Leahy MD [address] [place] [facility] [place] [address] PCP - [facility]06/26/23Team MemberRelationshipSpecialtyStart DateEnd Date Tess Leahy MD [address] [place] [facility] [place] [address] PCP - [facility]06/26/23 Team Status: Inactive Member Role Status [...] DateEnd Date Tess Leahy MD PCP - [facility]06/26/23 Team Status: Inactive Member Role Status Dates Tess Leahy MD Primary Care Provider Active Start: October 28, 2024 End: October 28, 2024Shaina Suazo ProviderActiveStart: October 28, 2024 End: October 28, 2024 Team Status: Inactive Member Role Status Dates Tess Leahy MD Primary Care Provider Active Start: December 03, 2024 End: December 03, 2024Shaina Suazo ProviderActiveStart: December 03, 2024 End: December 03, 2024 Team Status: Active Member Role Status Dates Tess Leahy MD Primary Care Provider Active Start: December 04, 2024 Shaina Suazo ProviderActiveStart: December 04, 2024 Team Status: Inactive Member Role Status Dates Anup Pearl MD FACS Attending Provider Active Start: January 15, 2025 End: January 15, 2025Team MemberRelationshipSpecialtyStart DateEnd Date Tess Leahy MD [facility] - [facility]06/26/23 Team Status: Inactive Member Role/Relationship Status Dates Anup Pearl MD FACS Attending Provider Active Start: April 23, 2025 End: April 23, 2025 Goals (unrecognized section and content) Goals [...] BE BASED ON THE PRIMARY CLINICAL RECORDS. [facility]. provides no warranty or guarantee of the accuracy or completeness of information in this document.
== END 2025-05-03 08:36 | disposition home or self-care (01) ==
LOC: US 08:35
PROVIDERS: PCP Family Medicine; Visit Provider Surgery
DX: R10.13 Epigastric pain (principal); R93.5 Abnormal findings on diagnostic imaging of other abdominal regions, including retroperitoneum; K76.9 Liver disease, unspecified
CPT/HCPCS: 76705

== ENCOUNTER 2025-05-27 05:56 | Outpatient (OUT) | payer BC, SELFPAY ==
--- OUTSIDE RECORDS SUMMARY | 2025-05-27 05:59 | XMS_ITS | CCD ---
Author Organization [facility] Care Team Providers Care Custom Furrier Name Role Phone PIPPA ., DR WILSON [...] MD Tess Leahy Primary Care Provider [phone] MD Anup Pearl Attending Provider Tess Leahy MD Primary Care Provider Anup Pearl MD Attending Provider [phone] Tess Leahy MD Primary Care Provider TRISTON VELAZQUEZ Attending Unavailable GUILHERME ROMO Attending Unavailable Anup Pearl MD Attending Provider [phone] Tess Leahy MD Primary Care Provider Anup Pearl MD Attending Provider Tess Leahy MD Primary Care Provider Tess Leahy MD Attending Provider [phone] Anup Pearl MD Attending Provider KATHARINEL, Anup [...] [No Known Medication Allergies]Propensity to adverse reactions (disorder)[facility] Repository Medications Current Medications MedicationDrug Class(es)DatesSig (Normalized)Sig (Original)estradiol 0.5 mg oral tablet (3 sources)EstrogenStart: 18-31-2902uotn 1 tablet by mouth once dailyestradiol (Estrace) 0.5 MG tablet Indications: Hormone disorder Take 1 tablet (0.5 mg) by mouth Daily Take 1 tablet by mouth for 30 days 30 tablet 11 08/12/2024 Active Start: 07-10-2024 End: 40-22-3744wfjj 1 tablet by mouth once dailyestradiol (Estrace) 0.5 MG tablet Indications: Hot flashes Take 1 tablet (0.5 mg) by mouth Daily Take 1 tablet by mouth for 30 days 30 tablet 11 07/10/2024 07/10/2024 Discontinued (Ineffective)estrogens, conjugated (fdc) 0.3 mg oral tablet (4 sources)EstrogenStart: 07-10-2024 End: 57-22-3004htzq 1 tablet by mouth once daily, then take 1 tablet by mouth once dailyestrogens, conjugated, (Premarin) 0.3 MG tablet Indications: Hot flashes Take 1 tablet (0.3 mg) by mouth Daily Take 1 tablet daily by mouth for 30 days 30 tablet 3 07/10/2024 Activelevothyroxine sodium 0.1 mg oral tablet (20 sources)l-ThyroxineStart: 32-88-4493atxs 1 tablet by mouth once daily in the morningStart: 01-09-2024 End: 97-54-3950femu 1 tablet by mouth once daily in the morningLevothyroxine 88 mcg tablet Discontinued 0 .ROUTE .COMPLEX 90 3 November 04, 2024 11:27am December 06, 2024 11:06am TAKE 1 TABLET BY MOUTH IN THE MORNING ON AN EMPTY STOMACH ONCE DAILYStart: 11-07-2023 End: 58-07-2338fwks 1 capsule by mouth once dailyLevothyroxine 88 mcg capsule Discontinued 88 MCG PO Daily November 06, 2023 11:00pm January 09, 2024 9:41amStart: 84-50-4182khst 1 tablet by mouth once dailySynthroid 88 mcg Tab 88 mcg = 1 tab(s), Oral, Daily, Refills(s) 0 Start Date: 08/30/23 Status: OrderedStart: 71-37-1779bsvu 1 tablet by mouth once daily in the morninglevothyroxine (Synthroid, Levoxyl) 88 MCG tablet TAKE ONE TABLET BY MOUTH IN THE MORNING ON AN EMPTY STOMACH ONCE DAILY 02/13/2023 ActiveMulti Vitamins oral tablet (1 source)Start: 99-63-2095pjvy 1 tablet by mouth once dailyMulti Vitamins oral tablet 1 tab(s), Oral, Daily, Refill(s) 0 Start Date: 08/30/23 Status: Ordered pantoprazole 40 mg delayed release oral tablet (15 sources)Proton Pump InhibitorStart: 58-46-2222wfpf 1 tablet by mouth once dailyProtonix 20 mg Tab-DR 20 mg = 1 tab(s), Oral, Daily, Refills(s) 0 Start Date: 08/30/23 Status: OrderedStart: 56-73-4293zblm 1 tablet by mouth twice daily sucralfate 1000 mg oral tablet (14 sources)Aluminum ComplexStart: 49-13-7149lzeq 1 tablet by mouth once before mealtimesucralfate (Carafate) 1 g tablet Take by mouth 4 (four) times a day before meals Active Completed/Discontinued Medications MedicationDrug Class(es)DatesSig (Normalized)Sig (Original)amoxicillin 875 mg / clavulanate 125 mg oral tablet (4 sources)Penicillin-class AntibacterialStart: 05-15-2024 End: 20-33-7291aldy 1 tablet by mouth twice dailyAmoxicillin-Pot Clavulanate 875-125 mg tablet Discontinued 1 TAB PO Twice daily April 12:00am October 28, 2024 1:56pm Problems Active Problems Problem ClassificationProblemDateDocumented DateEpisodic/ChronicAbdominal pain (2 sources)Epigastric pain; Translations: [Epigastric pain]Onset: 08-30-2023 EpisodicAdministrative/social admission (6 sources)Memory finding; Translations: [Person with feared health complaint in whom no diagnosis is made]68-21-1208PfprutevQoeybqkw reactions (4 sources)Contact dermatitis; Translations: [Unspecified contact dermatitis, unspecified cause]72-70-8921BsdtgolaAykqvuesozhqth and diverticulitis (1 source)Diverticular krqzzor36-36-7788PhhfwamGsubglfktq disorders (2 sources)Gastroesophageal reflux disease without esophagitis; Translations: [Gastro-esophageal reflux disease without esophagitis]Onset: 90-73-9917Bbepmah Gastroduodenal ulcer (except hemorrhage) (2 sources)H/O: peptic ulcer; Translations: [Personal history of peptic ulcer disease]Onset: 83-06-9443RrvqwwzsIzzjcndi; including migraine (6 sources)Headache; Translations: [Headache]25-91-2362KcldzfdxEysio gastrointestinal disorders (1 source)History of vxtthvuuf70-85-7047ScjsxcxjVeitx screening for suspected conditions (not mental disorders or infectious disease) (10 sources)Encounter for screening mammogram for malignant neoplasm of breast; Translations: [Encounter for screening for malignant neoplasm of cervix]Onset: 21-93-0069RgrjhscfWghat upper respiratory disease (3 sources)Allergic rhinitis; Translations: [Allergic rhinitis, unspecified] 24-51-4692JzvfxgtYlahussc codes; unclassified (1 source)Family history of malignant neoplasm of breast; Translations: [FAMILY HX MALIG NEOPLASM OF BREAST]Onset: 16-04-9109VeokzzmkPgowhlta codes; unclassified (1 source)Family history of malignant neoplasm of digestive organs; Translations: [FAM HX MALIG NEOPLASM DIGESTIV ORGN]Onset: 16-86-0911Logyends Residual codes; unclassified (2 sources)Flushing; Translations: [Flushing]90-41-5601NgphezgqJmvkuhe disorders (11 sources)Hypothyroidism; Translations: [Hypothyroidism, unspecified]Onset: 804920-59-6240AhprgtqWtusokwrtwae (1 source)Body mass index 20-24 - crqajq52-86-9708 Past or Other Problems Problem ClassificationProblemDateDocumented DateEpisodic/ChronicImmunizations and screening for infectious disease (1 source)Encounter for screening for human papillomavirus (HPV); Translations: [ENC SCREENING HUMAN PAPILLOMAVIRUS]Onset: 02-48-7618Ymviitpo Results Test NameValueInterpretationReference RangeFacilityPathology Request for Lab Corpon 79-02-9823Bigvlupqi Request for Lab CorpNormalThBoundary Community Hospital Physician GroupComment on above:Result Comment: See report. Scanned copy available in EMR. PERFORMED BY: [place] [address] PATHOLOGIST [employer] OPERATOR RM CHAUDHRY M.D.Performed By: #### [facility] TO [facility] #### [address] 21-11-9804LnkmtzgivPdihkuedk From: Taryn Acuna LPN To: N - Clinical; Sent: 01/24/2025 15:43:28 EDT Show up: 03/26/2025 07:00:00 EDT Subject: EGD recall Due Date/Time: 04/17/2025 07:00:00 EDT Reminder/Recall Patient due for EGD 04/17/2025 to monitor gastric ulcer. Left voice mail message to call back to discuss. EGD scheduled for 04/23/25.[facility] HospitalLon [facility]L Specimen: [id number] Received: 01/15/25 Status: KATIE Quinn Num: [id number] Spec Type: Surgical Subm Dr: Anup Pearl MD FACS Tissues: A Gastric Biopsy (ANTRAL ULCER BX) B Gastric Biopsy (GASTRIC BODY BX) Procedures: HE/4, Gross/Micro L4/2, H PYLORI/2, IHC First AB/2 Age/ Patient Sex Location Account Attending Physician Ioana Marie 54/F LABELL [id number] Anup Pearl MD FACS SPEC NUM: [id number] RECD: 01/15/25 STATUS: KATIE QUINN NUM: [id number] CARYN: 01/15/25 [facility] DR: Anup Pearl MD FACS ENTERED: 01/15/[address]: Prerna Lee SPEC TYPE: Surgical DEPT: JEFRY TRUONG ENTERED BY: [id number] RECV BY: [id number] ORDERED: HE/4, Gross/Micro L4/2, H PYLORI/2, IHC [...] submitted in a single cassette. (1, ns, [id number] A) JG Part B is received in formalin labeled with the patients name, date of , and gastric body BX are two powell-loza, focally erythematous, friable, 0.3 cm each in greatest dimension tissue bits. The specimen is entirely submitted in a single cassette. (1, ns, [id number] B) JG Specimen: [id number] Received: 01/15/25 Status: KATIE Quinn Num: [id number] Spec Type: Surgical Subm Dr: Anup Pearl MD FACS Tissues: A Gastric Biopsy (ANTRAL ULCER BX) B Gastric Biopsy (GASTRIC BODY BX) Procedures: HE/4, Gross/Micro L4/2, H PYLORI/2, IHC First AB/2 Patient: Ioana Marie [id number] (Continued) Specimen: [id number] Received: 01/15/25 (Continued) Signed (signature on file) Micah Sahni MD 01/17/25 1406 Specimen: [id number] Received: 01/15/25 Status: KATIE Quinn Num: [id number] Spec Type: Surgical Subm Dr: Anup Pearl MD FACS Tissues: A Gastric Biopsy (ANTRAL ULCER BX) B Gastric Biopsy (GASTRIC BODY BX) Procedures: HE/4, Gross/Micro L4/2, H PYLORI/2, IHC First AB/2 Patient: Ioana Marie [id number] (Continued) Specimen: [id number] Received: 01/15/25 (Continued) Microscopic Description A B: Microscopic examination is performed. CPT Codes 19984 x2, 43795 x2 Specimen: [id number] Received: 01/15/25 Status: KATIE Quinn Num: [id number] Spec Type: Surgical Subm Dr: Anup Pearl MD FACS Tissues: A Gastric Biopsy (ANTRAL ULCER BX) B Gastric Biopsy (GASTRIC BODY BX) Procedures: HE/4, Gross/Micro L4/2, H PYLORI/2, IHC First AB/2 Patient: Ioana Marie [id number] (Continued) Signed (signature on file) Micah Sahni MD 01/17/25 1406Normal [facility] Physician GroupB[facility] 17-31-9772AimtmhlvoKniyttynv From: Taryn Acuna LPN To: N - [...] for 01/15/25 for egd , [facility]Ohio[facility] HospitalBasophils Auto (Bld) [#/Vol]Ordered By: Tess Leahy on 12-04-2024 Basophils (Bld) [#/Vol]0.1 10 3/uL0.0-0.1FLicking Memorial Hospital Basophils/100 WBC Auto (Bld)Ordered By: Tess Leahy on 06-61-9123Zdrmaqhow/100 WBC (Bld)0.9 %0.2-2.0[facility] For RehabilitationEosinophils/100 WBC Auto (Bld)Ordered By: Tess Leahy on 24-95-5780Tjjwkvbkycw/100 WBC (Bld)13.4 %High 0.9-7.0[facility] For RehabilitationErythrocyte distribution width Auto (RBC) [Ratio]Ordered By: Tess Leahy on 83-32-8033Npjacuyycqg distribution width (RBC) [Ratio]12.0 %11.0-15.0[facility] RehabilitationEstimated glomerular filtration rate (GFR) non- AmericanOrdered By: Tess Leahy on 71-78-2849NOP/1.73 sq M.predicted among non-blacks MDRD (S/P/Bld) [Vol rate/Area]mL/min/{1.73_m2}>=60 mL/min/1.73m 2FLicking Memorial Hospital Globulin Calc (S) [Mass/Vol]Ordered By: Tess Leahy on 08-08-6219Yaandwwx (S) [Mass/Vol]3.1 g/dLCleveland Clinic Children'S Hospital For RehabilitationGlucose mean value [Mass/volume] in Blood Estimated from glycated hemoglobinOrdered By: Tess Leahy on 78-58-2037Vtdxlbw glucose Estimated from glycated hemoglobin (Bld) [Mass/Vol]103 mg/dLCleveland Clinic Children'S Hospital For RehabilitationHematocrit Auto (Bld) [Volume fraction]Ordered By: Tess Leahy on 56-45-2804Dxfkaxdgub (Bld) [Volume fraction]39.8 %36.0-48.0[facility] For RehabilitationHemoglobin A1c percentageOrdered By: Tess Leahy on 44-16-1235OzL5b (Bld) [Mass fraction]5.2 % 4.5-6.2FLicking Memorial HospitalComment on above:ADA RECOMMENDED LIMIT 4.0 - 6.0ADA THERAPEUTIC TARGET < 7.0ACTION SUGGESTED> 7.0Hemoglobin [Mass/volume] in BloodOrdered By: Tess Leahy on 45-09-6510Navenacnit (Bld) [Mass/Vol]13.7 g/dL12.0-16.0[facility] For RehabilitationLaboratory - Chemistry and Chemistry - challengeOrdered By: Tess Leahy on 08-63-9299Zxqbfqh [Mass/Vol]3.5 g/dL3.4-5.0[facility] For RehabilitationALP [Catalytic activity/Vol]50 U/S59-882LjrxxxerxCleveland Clinic [facility]S Hospital For RehabilitationALT [Catalytic activity/Vol]24 U/C49-70GnxggvmmbCleveland Clinic [facility] Hospital For RehabilitationAST [Catalytic activity/Vol]20 U/B19-14MvidqokdwCleveland Clinic Children'S Hospital For RehabilitationBilirubin [Mass/Vol]0.8 mg/dL0.2-1.0[facility] For RehabilitationCalcium [Mass/Vol]9.2 mg/dL 8.5-10.1FLicking Memorial HospitalChloride [Moles/Vol]103 mmol/L98-107 [facility] RehabilitationCO2 [Moles/Vol]30.1 mmol/L21.0-32.0[facility] For RehabilitationCreatinine [Mass/Vol]0.63 mg/dL0.55-1.02[facility] For RehabilitationFree T4 [Mass/Vol]1.01 ng/dL0.76-1.46[facility] RehabilitationGFR/1.73 sq M.predicted MDRD (S/P/Bld) [Vol rate/Area] mL/min/{1.73_m2}>=60 mL/min/1.73m 2FLicking Memorial HospitalGlucose [Mass/Vol]98 mg/kY23-057ArvolrzvzCleveland Clinic Children'S Hospital For RehabilitationPotassium [Moles/Vol] 4.1 mmol/L3.5-5.1FLicking Memorial HospitalProtein [Mass/Vol]6.6 g/dL 6.4-8.2FCleveland Clinic Hillcrest Hospitalodium [Moles/Vol]140 mmol/P115-696 [facility] For RehabilitationTSH Qn5.042 m[IU]/LHigh0.358-3.740[facility] For RehabilitationUrea nitrogen [Mass/Vol]19.0 mg/dLHigh7.0-18.0[facility] For RehabilitationUrea nitrogen/Creatinine [Mass ratio]30.2 mg/mgCleveland Clinic Children'S Hospital For RehabilitationLaboratory - Hematology and Cell countsOrdered By: Tess Leahy on 77-99-8616Yntxajbk granulocytes/100 WBC (Bld)0.3 %0.0-0.5FLicking Memorial HospitalLeukocytes [#/volume] corrected for nucleated erythrocytes in Blood by Automated counOrdered By: Tess Leahy on 65-98-0804OGL corrected for nucl RBC Auto (Bld) [#/Vol]5.8 10 3/uL4.0-11.0[facility] For RehabilitationLymphocytes Auto (Bld) [#/Vol]Ordered By: Tess Leahy on 83-02-1980Olgplrtbmxd (Bld) [#/Vol]1.5 10 3/uL1.2-3.8[facility] For RehabilitationLymphocytes/100 WBC Auto (Bld)Ordered By: Tess Leahy on 12-04-2024 Lymphocytes/100 WBC (Bld)25.6 %20.5-60.0[facility] HospitalH Auto (RBC) [Entitic mass]Ordered By: Tess Leahy on 78-08-4748DUM (RBC) [Entitic mass]32.6 pg26.7-34.0[facility]. Mary HospitalHC Auto (RBC) [Mass/Vol]Ordered By: Tess Leahy on 96-43-1158WTQC (RBC) [Mass/Vol]34.4 g/dL 29.9-35.2FLicking Memorial HospitalMCV Auto (RBC) [Entitic vol]Ordered By: Tess Leahy on 85-59-8175NGO (RBC) [Entitic vol]94.8 fL81.0-99.0[facility] For RehabilitationMonocytes Auto (Bld) [#/Vol]Ordered By: Tess Leahy on 76-27-4306Palstjttk (Bld) [#/Vol]0.4 10 3/uL0.3-0.8[facility] For RehabilitationMonocytes/100 WBC Auto (Bld)Ordered By: Tess Leahy on 12-04-2024 Monocytes/100 WBC (Bld)7.5 %1.7-12.0[facility] For RehabilitationNeutrophils Auto (Bld) [#/Vol]Ordered By: Tess Leahy on 34-70-0158Irnfrpeukjh (Bld) [#/Vol]3.0 10 3/uL1.4-6.5FLicking Memorial HospitalNeutrophils/100 WBC Auto (Bld)Ordered By: Tess Leahy on 81-61-5676Urptktdslqd/100 WBC (Bld)52.3 % 43.0-75.0[facility] For RehabilitationNo Panel InformationOrdered By: Tess Leahy on 07-14-0265Elesxbtjnyc # (Auto)0.8 10 3/uLHigh0.0-0.7FLicking Memorial HospitalImmature Granulocyte # (Auto)0.02 10 3/uL0.00-0.03[facility] For RehabilitationPlatelet mean volume Auto (Bld) [Entitic vol]Ordered By: Tess Leahy on 42-27-6084Ggemjcll mean volume (Bld) [Entitic vol]9.4 fLLow 9.5-13.5FLicking Memorial HospitalPlatelets Auto (Bld) [#/Vol]Ordered By: Tess Leahy on 79-91-7801Gqjlphteq (Bld) [#/Vol]264 10 3/fA763-717QcnoffelsCleveland Clinic Children'S Hospital For RehabilitationRBC Auto (Bld) [#/Vol]Ordered By: Tess Leahy on 38-90-4118IYM (Bld) [#/Vol]4.20 10 6/uL4.20-5.40[facility] Medical Centererum or plasma albumin/globulin mass ratioOrdered By: Tess Leahy on 45-31-0651Pppewgx/Globulin [Mass ratio]1.1 {ratio}[facility] Medical Centererum or plasma anion gap determinationOrdered By: Tess Leahy on 42-72-9052Nqvva gap [Moles/Vol]11.0 mmol/LFLicking Memorial HospitalMM TOMOSYNTHESIS SCREENING BIon 14-84-5099[place]oeRe[place], [place] [address] Mammography Report Signed Patient: IOANA MARIE MR#: [id number] : 1970 Acct:[id number] Age/Sex: 54 / F ADM Date: 11/20/24 Loc: MAMMO Attending Dr: Triston Velazquez D.O. Ordering Physician: Triston Velazquez D.O. Results: Date of Service: 11/20/24 Follow Up: Procedure(s): MM tomosynthesis screening BI Accession Number(s): [id number] cc: Tess Leahy M.D.; Triston Velazquez D.O. Patient Name: IOANA MARIE MR#: [id number] : 1970 Exam Date: 11/20/2024 Ordering Doctor: [...] breast cancer at age 69. LOCATION: [facility] BREAST COMPOSITION: The breasts are extremely [...] Signed By: 11/20/24 1255 DD/ 1254 TD/TT: Counter Sales Representative:TBHRadiology, RadiologistMD - 11/20/2024 [place] [address] Mammography Report Signed Patient: IOANA MARIE MR#: [id number] : 1970 Acct:[id number] Age/Sex: 54 / F ADM Date: 11/20/24 Loc: MAMMO Attending Dr: Triston Velazquez D.O. Ordering Physician: Marcus,Triston D.O. Results: Date of Service: 11/20/24 Follow Up: Procedure(s): MM tomosynthesis screening BI Accession Number(s): [id number] cc: Tess Leahy M.D.; Triston Velazquez D.O. Patient Name: IOANA MARIE MR#: [id number] : 1970 Exam Date: 11/20/2024 Ordering Doctor: [...] breast cancer at age 69. LOCATION: [facility] BREAST COMPOSITION: The breasts are extremely [...] Signed By: 11/20/24 1255 DD/ 1254 TD/TT: Counter Sales Representative: KIMBERLY HealthcareRadiology Study observation (narrative)[facility] TOMOSYNTHESIS SCREENING BIOrdered By: Radiologist Radiology on 72-94-7879RZWI [employer] Work Phone: Laboratory - Chemistry and Chemistry - challengeon 09-38-7655Xyfskqx [Mass/Vol]9.1 mg/dL8.5-10.1FLicking Memorial HospitalNo Panel InformationOrdered By: Anup Pearl on 75-75-3570Yiwfojgpingso Pathology TestSee commentCleveland Clinic Children'S Hospital For RehabilitationComment on above:See report. Scanned copy available in EMR.Pathology Request for Lab Corpon 10-02-2024 Pathology Request for Lab CorpNormalThBoundary Community Hospital Physician GroupComment on above:Order Comment: GI SPECIMENResult Comment: See report. Scanned copy available in EMR. PERFORMED BY: [place] [address] PATHOLOGIST [employer] OPERATOR VIKI OLIVEROS M.D.Performed By: #### PATH TO [facility] #### [place] [address] USAAmbulatory Visit Summaryon 15-68-7272Blogtbwwvd Visit SummaryAmbulatory Visit Summary IOANA MARIE :1970 [...] you for choosing us for your care. [facility] HospitalIGP,APTIMA HPV,AGE GDLNon 85-00-1026GQB GDLN ACOG TESTINGNote.NOMS HealthcareComment on above:TESTS RESULT FLAG UNITS REF RANGE LAB Clinician Provided Cytology Information Source.............Cervix;Endocervix No. of containers..01 ThinPrep Vial Age Christinao ACOG Valencia... FLAG LEGEND: L-Low Normal,H-High Normal,LL-Alert Low,HH-Alert High <-Panic Low,>-Panic High,A-Abnormal,AA-Critical Abnormal Performed at: 01 =[facility] [place] [address] Lilo Ferrer MD, HPV APTIMANegativeNegativeNOMS HealthcareComment on above:This nucleic acid amplification test detects fourteen high- risk HPV types (16,18,31,33,35,39,45,51,52,56,58,59,66,68) without differentiation. Performed at: = - [facility], [place] [id number] Airplane Cleaner: Lilo Ferrer MD, Phone: [phone] Performed at: - [facility], [place] [id number] Airplane Cleaner: Lilo Ferrer MD, Phone: [phone] IGP, APTIMA HPV, RFX 16/18,45Note.NOMS HealthcareComment on above:TESTS RESULT FLAG UNITS REF RANGE LAB DIAGNOSIS: 02 NEGATIVE FOR INTRAEPITHELIAL LESION OR MALIGNANCY. Specimen adequacy: 02 Satisfactory for evaluation. Endocervical and/or squamous metaplastic cells (endocervical component) are present. Performed by: Mert Pantoja, Banquet Waiter/Waitress . 02 Note: Note 02 The Pap [...] Low,>-Panic High,A-Abnormal,AA-Critical Abnormal Performed at: [address] [facility] [address] Lilo Ferrer MD, BRUSH-SPATULA CERVIX ENDOCERVIX CLINISYNCNOMS HealthcareBasophils Auto (Bld) [#/Vol]on 29-70-6064Ancxfpedq (Bld) [#/Vol]Automated basophil count0.0-0.1FLicking [facility] Hospital Basophils/100 WBC Auto (Bld)on 85-24-2395Pfmklbvrr/100 WBC (Bld)Automated basophil %0.2-2.0[facility] For RehabilitationEosinophils/100 WBC Auto (Bld) on 22-73-3554Tnhettuprab/100 WBC (Bld)Automated eosinophil %High0.9-7.0[facility] For RehabilitationErythrocyte distribution width Auto (RBC) [Ratio]on 12-47-8462Gchbytuqchs distribution width (RBC) [Ratio]Erythrocyte distribution width [Ratio] by Automated count11.0-15.0[facility] For RehabilitationHCG ( test) IA.rapid Ql (U)on 68-14-2417BUU ( test) Ql (U)Urine human chorionic gonadotropin (hCG) detection by immunoassayNEGATIVECleveland Clinic Children'S Hospital For RehabilitationHematocrit Auto (Bld) [Volume fraction]on 02-14-2024 Hematocrit (Bld) [Volume fraction]Hematocrit [Volume Fraction] of Blood by Automated count36.0-48.0[facility] For RehabilitationHemoglobin [Mass/volume] in Bloodon 12-77-9542Btmlfohjrx (Bld) [Mass/Vol]Hemoglobin [Mass/volume] in Blood12.0-16.0[facility] For RehabilitationLaboratory - Hematology and Cell countson 57-30-0961Odbxahuo granulocytes/100 WBC (Bld)0.2 % 0.0-0.5FLicking Memorial HospitalLeukocytes [#/volume] corrected for nucleated erythrocytes in Blood by Automated counon 80-32-0744AZR corrected for nucl RBC Auto (Bld) [#/Vol]Leukocytes [#/volume] corrected for nucleated erythrocytes in Blood by Automated coun4.0-11.0[facility] Lymphocytes Auto (Bld) [#/Vol]on 96-77-8350Snoaalgxdua (Bld) [#/Vol]Lymphocytes [#/volume] in Blood by Automated count1.2-3.8[facility] Lymphocytes/100 WBC Auto (Bld)on 49-35-0422Gbodwvfvfyv/100 WBC (Bld) Lymphocytes/100 leukocytes in Blood by Automated count20.5-60.0[facility] HospitalH Auto (RBC) [Entitic mass]on 45-40-0640UJB (RBC) [Entitic mass]MCH [Entitic mass] by Automated count26.7-34.0[facility] For RehabilitationMCHC Auto (RBC) [Mass/Vol]on 02-55-7414UYAS (RBC) [Mass/Vol]MCHC [Mass/volume] by Automated count29.9-35.2FLicking Memorial HospitalMCV Auto (RBC) [Entitic vol]on 77-85-2904KZQ (RBC) [Entitic vol]MCV [Entitic volume] by Automated count81.0-99.0[facility] For RehabilitationMonocytes Auto (Bld) [#/Vol]on 81-64-7925Acantfzyl (Bld) [#/Vol]Automated blood monocyte count0.3-0.8 [facility] For RehabilitationMonocytes/100 WBC Auto (Bld)on 02-14-2024 Monocytes/100 WBC (Bld)Automated monocyte %1.7-12.0[facility] For RehabilitationNeutrophils Auto (Bld) [#/Vol]on 37-10-5649Xfsumqgklnk (Bld) [#/Vol] Neutrophils [#/volume] in Blood by Automated count1.4-6.5FLicking Memorial HospitalNeutrophils/100 WBC Auto (Bld)on 56-86-3478Mhhmzitsskq/100 WBC (Bld)Automated neutrophil %Low43.0-75.0[facility] For RehabilitationNo Panel Informationon 62-23-6283Vktyqoqqoyv # (Auto)1.2 10 3/uLHigh0.0-0.7FLicking Memorial HospitalImmature Granulocyte # (Auto)0.01 10 3/uL0.00-0.03 [facility] For RehabilitationPlatelet mean volume Auto (Bld) [Entitic vol]on 88-75-2811Vyjvswio mean volume (Bld) [Entitic vol]Platelet mean volume [Entitic volume] in Blood by Automated count9.5-13.5FLicking [facility] Hospital Platelets Auto (Bld) [#/Vol]on 61-68-3723Qlamruvyr (Bld) [#/Vol]Platelets [#/volume] in Blood by Automated twevs957-929HujmecpsaCleveland Clinic Children'S Hospital For Rehabilitation RBC Auto (Bld) [#/Vol]on 84-16-9201PQU (Bld) [#/Vol]Erythrocytes [#/volume] in Blood by Automated count4.20-5.40[facility] For RehabilitationMM TOMOSYNTHESIS SCREENING BIon 35-46-3576XjvReagan, [place] [address] Mammography Report Signed Patient: IOANA MARIE MR#: [id number] : 1970 Acct:[id number] Age/Sex: 53 / F ADM Date: 11/20/23 Loc: MAMMO Attending Dr: Triston Velazquez D.O. Ordering Physician: Triston Velazquez D.O. Results: Date of Service: 11/20/23 Follow Up: Procedure(s): MM tomosynthesis screening BI Accession Number(s): [id number] cc: Tess Leahy M.D.; Triston Velazquez D.O. Patient Name: IOANA MARIE MR#: [id number] : 1970 Exam Date: 11/20/2023 Ordering Doctor: [...] breast cancer at age 69. LOCATION: [facility] BREAST COMPOSITION: The breasts are extremely [...] Signed By: 11/23/23 1331 DD/ 1330 TD/TT: Counter Sales Representative:TBHRadiology, Radiologist, MD - 11/23/2023 [place] [address] Mammography Report Signed Patient: IOANA MARIE MR#: [id number] : 1970 Acct:[id number] Age/Sex: 53 / F ADM Date: 11/20/23 Loc: MAMMO Attending Dr: Triston Velazquez D.O. Ordering Physician: Triston Velazquez D.O. Results: Date of Service: 11/20/23 Follow Up: Procedure(s): MM tomosynthesis screening BI Accession Number(s): [id number] cc: Tess Leahy M.D.; Triston Velazquez D.O. Patient Name: IOANA MARIE MR#: [id number] : 1970 Exam Date: 11/20/2023 Ordering Doctor: [...] breast cancer at age 69. LOCATION: [facility] BREAST COMPOSITION: The breasts are extremely [...] Signed By: 11/23/23 1331 DD/ 1330 TD/TT: Counter Sales Representative: KIMBERLY HealthcareRadiology Study observation (narrative)[facility] TOMOSYNTHESIS SCREENING BIOrdered By: Radiologist Radiology on 90-73-8858NYPE [employer] Work Phone: basophils Auto (Bld) [#/Vol]on 42-18-6601Yayxkhwkw (Bld) [#/Vol]0.1 10 3/uL0.0-0.1FLicking Memorial HospitalBasophils/100 WBC Auto (Bld)on 51-97-7312Abdaxicfa/100 WBC (Bld)0.8 %0.2-2.0[facility] RehabilitationCholesterol in LDL Calc [Mass/Vol]on 10-35-5749Gqeyietdgdy in LDL [Mass/Vol]88.0 mg/dLCleveland Clinic Children'S Hospital For RehabilitationComment on above:<100 mg/dl ZSMTONJ396-025 mg/dl NEAR OR ABOVE CYIPKJS502-942 mg/dl BORDERLINE GYXN920-221 mg/dl HIGH>190 mg/dl VERY HIGHCholesterol in VLDL Calc [Mass/Vol]on 56-09-2921Httgkyoeebz in VLDL [Mass/Vol]10.2 mg/dLCleveland Clinic Children'S Hospital For RehabilitationEosinophils/100 WBC Auto (Bld)on 52-13-9314Cvyilzjagpc/100 WBC (Bld)11.7 % 0.9-7.0[facility] For RehabilitationErythrocyte distribution width Auto (RBC) [Ratio]on 57-17-7515Fadgvrxhrfw distribution width (RBC) [Ratio]12.0 % 11.0-15.0[facility] RehabilitationEstimated glomerular filtration rate (GFR) non- Americanon 31-85-9919CHZ/1.73 sq M.predicted among non-blacks MDRD (S/P/Bld) [Vol rate/Area]mL/min/{1.73_m2}>=60[facility] For RehabilitationGlobulin Calc (S) [Mass/Vol]on 58-72-6404Fndfxysb (S) [Mass/Vol]3.4 g/dL [facility] RehabilitationHematocrit Auto (Bld) [Volume fraction]on 87-62-0056Vyremqcjws (Bld) [Volume fraction]39.6 %36.0-48.0[facility] For RehabilitationHemoglobin [Mass/volume] in Bloodon 26-67-8699Hlyogleioe (Bld) [Mass/Vol]13.2 g/dL12.0-16.0[facility] RehabilitationLaboratory - Chemistry and Chemistry - challengeon 59-95-1234Ckvxbpj [Mass/Vol]3.4 g/dL 3.4-5.0[facility] For RehabilitationALP [Catalytic activity/Vol]51 U/L46-116 [facility] RehabilitationALT [Catalytic activity/Vol]16 U/L14-59 [facility] RehabilitationAST [Catalytic activity/Vol]21 U/L15-37 [facility] For RehabilitationBilirubin [Mass/Vol]1.1 mg/dL0.2-1.0[facility] For RehabilitationCalcium [Mass/Vol]8.7 mg/dL8.5-10.1FLicking Memorial HospitalChloride [Moles/Vol]103 mmol/Q91-501KvgdfisvaCleveland Clinic Children'S Hospital For RehabilitationCholesterol [Mass/Vol]177 mg/dL<=200[facility] Cholesterol in HDL [Mass/Vol]79 mg/tW92-17ObbzvlbinCleveland Clinic [facility]'S Hospital [facility] Comment on above:> or =60 mg/dl - LOW CARDIOVASCULAR RISK<40 mg/dl - HIGH CARDIOVASCULAR RISKCO2 [Moles/Vol]27.1 mmol/L21.0-32.0[facility] For RehabilitationCreatinine [Mass/Vol]0.81 mg/dL0.55-1.02[facility] GFR/1.73 sq M.predicted MDRD (S/P/Bld) [Vol rate/Area]mL/min/{1.73_m2}>=60 [facility] For RehabilitationGlucose [Mass/Vol]92 mg/kQ37-874PphgfctzsCleveland Clinic Children'S Hospital For RehabilitationPotassium [Moles/Vol]4.4 mmol/L3.5-5.1FLicking Memorial HospitalProtein [Mass/Vol]6.8 g/dL6.4-8.2FLicking Memorial Hospital Sodium [Moles/Vol]137 mmol/B310-245WctsxlttqCleveland Clinic Children'S Hospital For RehabilitationTriglyceride [Mass/Vol]51 mg/dL<=150[facility] For RehabilitationUrea nitrogen [Mass/Vol]21.0 mg/dL7.0-18.0[facility] For RehabilitationUrea nitrogen/Creatinine [Mass ratio]25.9 mg/mgCleveland Clinic Children'S Hospital For Rehabilitation Laboratory - Hematology and Cell countson 32-70-5215Ojgaftgx granulocytes/100 WBC (Bld)0.2 %0.0-0.5FLicking Memorial HospitalLeukocytes [#/volume] corrected for nucleated erythrocytes in Blood by Automated counon 30-51-0471TRQ corrected for nucl RBC Auto (Bld) [#/Vol]8.4 10 3/uL4.0-11.0[facility] For RehabilitationLymphocytes Auto (Bld) [#/Vol]on 89-71-6202Iqdupnefdee (Bld) [#/Vol]1.7 10 3/uL1.2-3.8[facility] For RehabilitationLymphocytes/100 WBC Auto (Bld)on 71-70-8361Ruzjnpkssqh/100 WBC (Bld)20.5 %20.5-60.0[facility] HospitalH Auto (RBC) [Entitic mass]on 37-36-2216HDJ (RBC) [Entitic mass]31.7 pg26.7-34.0[facility] For RehabilitationMCHC Auto (RBC) [Mass/Vol]on 88-87-9871TVST (RBC) [Mass/Vol]33.3 g/dL29.9-35.2FLicking Memorial HospitalMCV Auto (RBC) [Entitic vol]on 67-25-8135CLO (RBC) [Entitic vol] 95.2 fL81.0-99.0[facility] For RehabilitationMonocytes Auto (Bld) [#/Vol]on 01-52-3775Ongakesgp (Bld) [#/Vol]0.5 10 3/uL0.3-0.8[facility] For RehabilitationMonocytes/100 WBC Auto (Bld)on 80-70-1498Hrrawjdjk/100 WBC (Bld)5.5 % 1.7-12.0[facility] For RehabilitationNeutrophils Auto (Bld) [#/Vol]on 81-66-6092Gavxkxpavcb (Bld) [#/Vol]5.2 10 3/uL1.4-6.5FLicking Memorial HospitalNeutrophils/100 WBC Auto (Bld)on 39-20-8139Lubieksetld/100 WBC (Bld)61.3 % 43.0-75.0[facility] RehabilitationNo Panel Informationon 11-14-2023 Eosinophils # (Auto)1.0 10 3/uL0.0-0.7FLicking Memorial HospitalImmature Granulocyte # (Auto)0.02 10 3/uL0.00-0.03[facility] Platelet mean volume Auto (Bld) [Entitic vol]on 31-72-6301Pxrthjfs mean volume (Bld) [Entitic vol]10.3 fL9.5-13.5FLicking Memorial HospitalPlatelets Auto (Bld) [#/Vol]on 06-82-1610Nwbzpvjuh (Bld) [#/Vol]235 10 3/bE929-594 [facility] For RehabilitationRBC Auto (Bld) [#/Vol]on 13-39-2786JHY (Bld) [#/Vol]4.16 10 6/uL4.20-5.40[facility] Medical Centererum or plasma albumin/globulin mass ratioon 52-83-7689Iaqnaxf/Globulin [Mass ratio]1.0 {ratio} [facility] Centererum or plasma anion gap determinationon 44-12-3639Nionq gap [Moles/Vol]11.3 mmol/LFCleveland Clinic Hillcrest Hospitalerum or plasma total cholesterol/high density lipoprotein (HDL) cholesterol mass rat on 19-48-5100Grvssnneeyj.total/Cholesterol in HDL [Mass ratio]2.2 {ratio} [facility] RehabilitationComment on above:3.3 - 4.4 LOW RISK4.4 - 7.1 AVERAGE RISK7.1 - 11.0 MODERATE RISK>11.0 HIGH RISKGlucose mean value [Mass/volume] in Blood Estimated from glycated hemoglobinon 39-66-3355Yxbswua glucose Estimated from glycated hemoglobin (Bld) [Mass/Vol]105 mg/dLCleveland Clinic Children'S Hospital For RehabilitationLaboratory - Chemistry and Chemistry - challengeon 25-35-1205Bwkzrqds [Mass/Vol]35.0 ng/mL8.0-252.0[facility] For RehabilitationFree T4 [Mass/Vol]0.96 ng/dL0.76-1.46[facility] Glucose [Mass/Vol]88 mg/mM79-583OkstwvulxCleveland Clinic Children'S Hospital For RehabilitationT4 [Mass/Vol] 7.70 ug/dL4.80-13.90[facility] For RehabilitationTS Qn2.126 m[IU]/L 0.358-3.740[facility] For RehabilitationLaboratory - Hematology and Cell countson 96-37-2481TwU6l (Bld) [Mass fraction]5.3 %4.5-6.2FLicking Memorial HospitalComment on above:ADA RECOMMENDED LIMIT 4.0 - 6.0ADA THERAPEUTIC TARGET < 7.0ACTION SUGGESTED> 7.0No Panel Informationon 80-80-602572193556-Xepfdqo Vitamin D Total29.1 ng/mLCleveland Clinic Children'S Hospital For RehabilitationComment on above:<20 ng/mL Vit D znatmulaj27-<30 ng/mL Vit D zajqtysukskm37-242 ng/mL Vit D sufficient>100 ng/mL Potential ToxicityC-Peptide1.4 ng/mL1.1-4.4FLicking Memorial HospitalComment on above:C-Peptide reference interval is for fasting patients.C-Peptide reference interval is for fasting patients. Dehydroepiandrosterone Daonslb71.4 ug/dL41.2-243.7FLicking Memorial HospitalFree Cortisol, Dialysis, LCMS0.524 ug/dL.[facility] Comment on above:These tests were developed and their performancecharacteristics determined by [employer]. They have not beencleared or approved by the Food and Drug Administration.Reference Range:8 AM 0.10 - 1.204 PM 0.042 - 0.872Performed at: [facility] - [facility] [address] [id number] Dir fani: Shiv Padron MD, Phone: [phone] Triiodothyronine2.33 pg/mL 2.18-3.98[facility] For RehabilitationReverse Triiodothyronine (T3)16.0 ng/dL9.2-24.1FLicking Memorial HospitalComment on above:This test was developed and its performance characteristicsdetermined by [employer]. It has not been cleared orapproved by the Food and Drug Administration.Performed at: [address] [id number] Director: Jennifer Ruff MD, Phone: [phone] Hormone Binding Wllctspx179.0 nmol/L17.3-125.0 [facility] For RehabilitationComment on above:Performed at: [address] [id number] Director: Mark Gallardo PhD, Phone: [phone] at: [address] [id number] Director: Mark Gallardo PhD, Phone: [phone] Level15 ng/dL4-50[facility] Medical Centererotonin (P) [Mass/Vol]on 94-24-6544Yymwibkse331 ng/bE05-498SdgziuzobCleveland Clinic Children'S Hospital For RehabilitationComment on above:This test was developed and its performance characteristicsdetermined by [employer]. It has not been cleared orapproved by the Food and Drug Administration.Performed at: [address] [id number] Director: Jennifer Ruff MD, Phone: [phone] test was developed and its performance characteristicsdetermined by [employer]. It has not been cleared orapproved by the Food and Drug Administration.Performed at: [address] [id number] Director: Jennifer Ruff MD, Phone: [phone] estrone measurementon 38-10-7048S1 [Mass/Vol]106 pg/mL.[facility] For RehabilitationComment on above:Range Adult (Premenopausal) 27 - 231 Menstrual Cycle (1-10 days) 19 - 149 Menstrual Cycle (11-20 days) 32 - 176 Menstrual Cycle (21-30 days) 37 - 200 Adult (Postmenopausal) 0 - 125Performed at: [address] [id number] Director: Jennifer Ruff MD, Phone: [phone] or plasma estradiol (E2) measurement (mass/volume)on 21-57-6601Y2 [Mass/Vol] 238.0 pg/mL.[facility] For RehabilitationComment on above:Adult Female Range Follicular phase 12.5 - 166.0 Ovulation phase 85.8 - 498.0 Luteal phase 43.8 - 211.0 Postmenopausal <6.0 - 54.7 1st trimester 215.0 - >4300.0Roche ECLIA methodologySerum or plasma insulin measurement (units/volume)on 11-07-2023 Insulin Qn3.5 u[iU]/mL2.6-24.9[facility] For RehabilitationComment on above: Performed at: [employer] [id number] Director: Mark Gallardo PhD, Phone: [phone] or plasma progesterone measurement (mass/volume)on 85-21-0790Mgtmdtknyqde [Mass/Vol]0.5 ng/mL.[facility] For RehabilitationComment on above:Follicular phase 0.1 - 0.9 Luteal phase 1.8 - 23.9 Ovulation phase 0.1 - 12.0 First trimester 11.0 - 44.3 Second trimester 25.4 - 83.3 Third trimester 58.7 - 214.0 Postmenopausal 0.0 - 0.1TPO Ab Qnon 44-15-1451Hikbzjo Peroxidase Wwhbingqzl619 [IU]/mL0-34[facility] For RehabilitationTestosterone Free [Mass/Vol]on 65-71-8395Tkjy Testosterone0.8 pg/mL0.0-4.2FLicking Memorial HospitalComment on above: Performed at: [employer] [id number] Director: Mark Gallardo PhD, Phone: [phone] at: [employer] [id number] Director: Jennifer Ruff MD, Phone: [phone] at: [facility] [employer] [id number] Director: Mark Gallardo PhD, Phone: [phone] at: [facility] [employer] [id number] Director: Jennifer Ruff MD, Phone: [phone] Ab Qnon 28-46-9820Reou- Thyroglobulin Hhdmtxak797.8 [IU]/mL0.0-0.9[facility] Comment on above:Thyroglobulin Antibody measured by Radha CoulterMethodologyIt should be noted that the presence of thyroglobulinantibodies may not be pathogenic nor diagnostic, especiallyat very low levels. The assay assistant editor has found thatfour percent of individuals without evidence of thyroiddisease or autoimmunity will have positive TgAb levels upto 4 IU/mL.Performed at: [facility] [employer] [id number] Director: Mark Gallardo PhD, Phone: [phone] Antibody measured by [employer] FinanceMethodologyIt should be noted that the presence of thyroglobulinantibodies may not be pathogenic nor diagnostic, especiallyat very low levels. The assay assistant editor has found thatfour percent of individuals without evidence of thyroiddisease or autoimmunity will have positive TgAb levels upto 4 IU/mL.Performed at: [facility] [employer] [id number] Director: Mark Gallardo PhD, Phone: [phone] Antibody measured by GamePressodologyIt should be noted that the presence of thyroglobulinantibodies may not be pathogenic nor diagnostic, especiallyat very low levels. The assay assistant editor has found thatfour percent of individuals without evidence of thyroiddisease or autoimmunity will have positive TgAb levels upto 4 IU/mL.Performed at: [facility] [employer] [id number] Director: Mark Gallardo PhD, Phone: [phone] Thyroglobulin [Mass/volume] in Serum or Plasmaon 92-68-0550Rvjxboqijoiaj [Mass/Vol]9.4 ng/mL.[facility] For RehabilitationComment on above:This test was developed and its performance characteristicsdetermined by [employer]. It has not been cleared or approvedby [...] is 2.0 ng/mL.Performed at: [facility] [address] [place], [place] [id number] Director: Samy Padron MD, Phone: [phone] ( test) IA.rapid Ql (U)on 51-55-7852NKA ( test) Ql (U)NegativeNEGATIVECleveland Clinic Children'S Hospital For RehabilitationXR DEXA AXIAL SKELETONon 15-62-8754[place]pb[place] [address] XRay Report Signed Patient: IOANA MARIE MR#: [id number] : 1970 Acct:[id number] Age/Sex: 52 / F ADM Date: 06/29/23 Loc: RAD Attending Dr: Triston Velazquez D.O. Ordering Physician: Triston Velazquez D.O. Date of Service: 06/29/23 Procedure(s): XR DEXA axial skeleton Accession Number(s): [id number] cc: Tess Leahy M.D.; Triston Velazquez D.O. [place] [address] Patient Name: IOANA MARIE MRN: [id number] date: 1970 Sex: F Assigned Patient Location: [facility] Current Patient Location: [facility] Accession/Order Number: [id number] Exam Date: 06/29/2023 15:00 Report Date: 06/29/2023 [...] Signed By: 06/29/23 1548 DD/ 1546 TD/TT: Counter Sales Representative:REBECCAadiologberyl, Radiologist, - 06/29/2023 [place] [address] XRay Report Signed Patient: IOANA MARIE MR#: [id number] : 1970 Acct:[id number] Age/Sex: 52 / F ADM Date: 06/29/23 Loc: RAD Attending Dr: Triston Velazquez D.O. Ordering Physician: Triston Velazquez D.O. Date of Service: 06/29/23 Procedure(s): XR DEXA axial skeleton Accession Number(s): [id number] cc: Tess Leahy M.D.; Triston Velazquez D.O. [place] [address] Patient Name: IOANA MARIE MRN: [id number] date: 1970 Sex: F Assigned Patient Location: [facility] Current Patient Location: [facility] Accession/Order Number: [id number] Exam Date: 06/29/2023 15:00 Report Date: 06/29/2023 [...] density. Low fracture risk Electronically authenticated by: TLYOR ALAMO Date: 06/29/2023 15:46 Dictated By: Tylor Alamo M.D. Signed By: 06/29/23 1548 DD/ 45 TD/TT: Counter Sales Representative: KIMBERLY HealthcareRadiology Study observation (narrative)[facility] HealthcareXR DEXA AXIAL SKELETONOrdered By: Radiologist Radiology on 20-94-4196KZAP [employer] Work Phone: MG MAMM SCREEN 3D CHRISTAL CADon 44-45-8122KY MAMM SCREEN 3D CHRISTAL CADPatient: IOANA MARIE Exam Date: 11/11/2022 : 1970 Gender:F Ordering : DR TRISTON VELAZQUEZ . Admission #: [id number] Family : Order #: [id number] CLICK HERE TO VIEW EXAM RADIOLOGY REPORT [...] breast cancer at age 69. LOCATION: [facility] BREAST COMPOSITION: Extremely dense, which lowers [...] Alamo MD on 11/11/2022 at 13:58NoCleveland Clinic Union HospitalCB AUTO DIFFon 06-97-1548HOSL #0.1 103/ulNormal0.0-0.1[facility]ermont HospitalComment on above:Performed By: #### CBC #### [facility] [address] [address] [address] Edelmira HirschBasophils/100 WBC (Bld)1.0 %Normal0.2-2.0[facility] on above:Performed By: #### CBC #### [facility] [address] [place] [address] Dr. Edelmira Jerez #1.0 103/ulCritically high0.0-0.7The [facility] HospitalComment on above:Performed By: #### CBC #### [facility] [address] [place] [address] Dr. Edelmira Lauosinophils/100 WBC (Bld)13.9 %Critically high0.9-7.0[facility] HospitalComment on above:Performed By: #### CBC #### [facility] [address] [place] [address] Dr. Edelmira Laurythrocyte distribution width (RBC) [Ratio]12.2 %Poptqu34.0-15.0 [facility] HospitalComment on above:Performed By: #### CBC #### [facility] [address] [place] [address] Dr. Edelmira HirschHematocrit (Bld) [Volume fraction]40.5 %Zmwhii67.0-48.0[facility] HospitalComment on above:Performed By: #### CBC #### [facility] [address] [place] [address] Dr. Edelmira HirschHemoglobin (Bld) [Mass/Vol]13.8 g/iJMvxeis91.0-16.0[facility] HospitalComment on above:Performed By: #### CBC #### [facility] [address] [place] [address] Dr. Edelmira Almeida #0.02 10e3/ulNormal0.00-0.03The [facility] HospitalComment on above:Performed By: #### CBC #### [facility] [address] [place] [address] Dr. Yilan ChangIG %0.3 %Normal0.0-0.5The [facility] HospitalComment on above: Performed By: #### CBC #### [facility] [address] [place] [address] Dr. Edelmira Stoner #1.8 103/ulNormal1.2-3.8The [facility] HospitalComment on above:Performed By: #### CBC #### [facility] [address] [place] [address] Dr. Edelmira Quigleyhocytes/100 WBC (Bld)24.6 %Nxflcu97.5-60.0The [facility] HospitalComment on above:Performed By: #### CBC #### [facility] [address] [place] [address] Dr. Edelmira Hilton DIFF REQNONormalThe [facility] HospitalComment on above: Performed By: #### CBC #### [facility] [address] [place] [address] Dr. Edelmira Rasmussen (RBC) [Entitic mass]32.2 npBwevzp97.7-34.0The [facility] HospitalComment on above:Performed By: #### CBC #### [facility] [address] [place] [address] Dr. Edelmira Mcmahon (RBC) [Mass/Vol]34.1 g/jYTvtffo22.9-35.2The [facility] HospitalComment on above:Performed By: #### CBC #### [facility] [address] [place] [address] Dr. Edelmira Malhotra (RBC) [Entitic vol]94.6 bQMktvku23.0-99.0The [facility] HospitalComment on above:Performed By: #### CBC #### [facility] [address] [place] [address] Dr. Edelmira Beckford #0.5 103/ulNormal0.3-0.8The [facility] HospitalComment on above:Performed By: #### CBC #### [facility] [address] [place] [address] Dr. Yilan ChangMonocytes/100 WBC (Bld)6.5 %Normal1.7-12.0[facility] Comment on above:Performed By: #### CBC #### [facility] [address] [place] [address] Dr. Edelmira Haq #3.8 103/ulNormal1.4-6.5The [facility] HospitalComment on above:Performed By: #### CBC #### [facility] [address] [place] [address] Dr. Edelmira Paceutrophils/100 WBC (Bld)53.7 %Jbiygb54.0-75.0The [facility] HospitalComment on above:Performed By: #### CBC #### [facility] [address] [place] [address] Dr. Edelmira Etiennelet mean volume (Bld) [Entitic vol]10.0 fLNormal9.5-13.5The [facility] HospitalComment on above:Performed By: #### CBC #### [facility] [address] [place] [address] Dr. Edelmira HirschPLT276 103/kyAryzwq688-560Akp [facility] HospitalComment on above: Performed By: #### CBC #### [facility] [address] [place] [address] Dr. Edelmira HirschRBC4.28 106/ulNormal4.20-5.40The [facility] HospitalComment on above:Performed By: #### CBC #### [facility] [address] [place] [address] Dr. Edelmira HirschWBC7.1 103/ulNormal4.0-11.0The [facility] HospitalComment on above: Performed By: #### CBC #### [facility] [address] [place] [address] Dr. Edelmira HirschGLYCOHEMOGLOBIN A1Con 37-26-3365EHI RECOMMENDATIONSEE BELOWNormal [facility] Clermont HospitalComment on above:Result Comment: ADA RECOMMENDED LIMIT 4.0 - 6.0 ADA THERAPEUTIC TARGET < 7.0 ACTION SUGGESTED > 7.0Performed By: #### A1C #### [facility] [address] [address] [address] Edelmira HirschGlucose [Mass/Vol]100 mg/dLNoCleveland Clinic Union HospitalComment on above:Performed By: #### A1C #### [facility] [address] [address] [address] Edelmira HirschHbA1c (Bld) [Mass fraction]5.1 %Normal4.5-6.2The [facility] HospitalComment on above:Performed By: #### A1C #### [facility] [address] [address] [address] Edelmira HirschLIPID PROFILEon 65-81-5985KPIV-HDL RATIO NORMSEE Providence HospitalComment on above:Result Comment: 3.3 - 4.4 LOW RISK 4.4 - 7.1 AVERAGE RISK 7.1 - 11.0 MODERATE RISK >11.0 HIGH RISKPerformed By: #### LIPID, CMP, TSH #### [facility] [address] [place] [address] Dr. Edelmira Forrestesterol [Mass/Vol]164 mg/dLNormal<=200The [facility] Comment on above:Performed By: #### LIPID, CMP, TSH #### [facility] [address] [place] [address] Dr. Edelmira Forrestesterol in HDL [Mass/Vol]80 mg/dLCritically wfoj23-50Jop [facility] HospitalComment on above:Performed By: #### LIPID, CMP, TSH #### [facility] [address] [place] [address] Dr. Edelmira Forrestesterol in LDL [Mass/Vol]76.8 mg/dLMansfield HospitalComment on above:Performed By: #### LIPID, CMP, TSH #### [facility] [address] [place] [address] Dr. Edelmira Forrestesterivan.total/Cholesterol in HDL [Mass ratio]2.1 {ratio} NormalThe [facility] HospitalComment on above:Performed By: #### LIPID, CMP, TSH #### [facility] [address] [address] [address] Edelmira Trivedi NORMAL> or = 60 mg/dl - LOW CARDIOVASCULAR RISK <40 mg/dl - HIGH CARDIOVASCULAR RISKMansfield HospitalComment on above:Performed By: #### LIPID, CMP, TSH #### [facility] [address] [address] [address] Edelmira Mahoney CALC NORMALSEE BELOWNoCleveland Clinic Union HospitalComment on above:Result Comment: <100 mg/dl OPTIMAL 100 - 129 mg/dl NEAR OR ABOVE OPTIMAL 130 - 159 mg/dl BORDERLINE HIGH 160 - 189 mg/dl HIGH >190 mg/dl VERY HIGH Performed By: #### LIPID, CMP, TSH #### [facility] [address] [place] [address] Dr. Edelmira HirschTriglyceride [Mass/Vol]36 mg/dLNormal<=150The [facility] Comment on above:Performed By: #### LIPID, CMP, TSH #### [facility] [address] [place] [address] Dr. Edelmira WinLDL CALC7.2 mg/dLNoCleveland Clinic Union HospitalComment on above: Performed By: #### LIPID, CMP, TSH #### [facility] [address] [place] [address] Dr. Edelmira John 14(COMP METB)on 29-79-3146Gozhcyq [Mass/Vol]3.5 g/dLNormal 3.4-5.0The [facility] HospitalComment on above:Performed By: #### LIPID, CMP, TSH #### [facility] [address] [place] [address] Dr. Edelmira HirschAlbumin/Globulin [Mass ratio]0.9 {ratio}NormalThe [facility] HospitalComment on above:Performed By: #### LIPID, CMP, TSH #### [facility] [address] [place] [address] Dr. Edelmira Phoenix [Catalytic activity/Vol]51 U/OUezjvb22-672Mwf [facility] HospitalComment on above:Performed By: #### LIPID, CMP, TSH #### [facility] [address] [address] [address] Edelmira ValenciaT [Catalytic activity/Vol]23 U/XNauvlc96-74Scg [facility] HospitalComment on above:Performed By: #### LIPID, CMP, TSH #### [facility] [address] [address] [address] Edelmira Hobbson gap [Moles/Vol]11.2 mmol/LNormalMer[facility] Health [facility] Comment on above:Performed By: #### LIPID, CMP, TSH #### [facility] [address] [place] [address] Dr. Edelmira HirschAST [Catalytic activity/Vol]18 U/HMbaqio30-01Oqk [facility] HospitalComment on above:Performed By: #### LIPID, CMP, TSH #### [facility] [address] [place] [address] Dr. Edelmira HirschBilirubin [Mass/Vol]0.9 mg/dLNormal0.2-1.0[facility] Comment on above:Performed By: #### LIPID, CMP, TSH #### [facility] [address] [place] [address] Dr. Edelmira HirschCalcium [Mass/Vol]9.4 mg/dLNormal8.5-10.1[facility] Comment on above:Performed By: #### LIPID, CMP, TSH #### [facility] [address] [place] [address] Dr. Edelmira HirschChloride [Moles/Vol]104 mmol/UHhitml67-645Toj [facility] Comment on above:Performed By: #### LIPID, CMP, TSH #### [facility] [address] [place] [address] Dr. Edelmira HirschCO2 [Moles/Vol]29.5 mmol/CTivmxf65.0-32.0The [facility] Comment on above:Performed By: #### LIPID, CMP, TSH #### [facility] [address] [place] [address] Dr. Edelmira HirschCreatinine [Mass/Vol]0.86 mg/dLNormal0.55-1.02The [facility] HospitalComment on above:Performed By: #### LIPID, CMP, TSH #### [facility] [address] [address] [address] Edelmira LauGFR-AF NAMIBIAN>60Normal>=60The [facility] HospitalComment on above:Performed By: #### LIPID, CMP, TSH #### [facility] [address] [address] [address] Edelmira LauGFR-NON AF NAMIBIAN>60Normal>=60The [facility] HospitalComment on above:Performed By: #### LIPID, CMP, TSH #### [facility] [address] [address] [address] Edelmira HirschGlobulin (S) [Mass/Vol]3.7 g/dLNormalThe [facility] HospitalComment on above:Performed By: #### LIPID, CMP, TSH #### [facility] [address] [address] [address] Edelmira HirschGlucose [Mass/Vol]97 mg/hLMmjmhj84-296ZzgMercy Health Clermont Hospital Comment on above:Performed By: #### LIPID, CMP, TSH #### [facility] [address] [address] [address] Edelmira HirschPotassium [Moles/Vol]4.7 mmol/LNormal3.5-5.1[facility] Comment on above:Performed By: #### LIPID, CMP, TSH #### [facility] [address] [address] [address] Edelmira HirschProtein [Mass/Vol]7.2 g/dLNormal6.4-8.2[facility] Comment on above:Performed By: #### LIPID, CMP, TSH #### [facility] [address] [address] [address] Edelmira HisrchSodium [Moles/Vol]140 mmol/FGcirpl405-139Myf [facility] Comment on above:Performed By: #### LIPID, CMP, TSH #### [facility] [address] [address] [address] Edelmira HirschUrea nitrogen [Mass/Vol]14.0 mg/dLNormal7.0-18.0[facility] HospitalComment on above:Performed By: #### LIPID, CMP, TSH #### [facility] [address] [place] [address] Dr. Edelmira Daniel nitrogen/Creatinine [Mass ratio]16.3 mg/mgNoCleveland Clinic Union HospitalComment on above:Performed By: #### LIPID, CMP, TSH #### [facility] [address] [place] [address] Dr. Edelmira Conrad 52-56-4832TWC8.540 uIU/mLNormal0.358-3.740The [facility] HospitalComment on above:Performed By: #### LIPID, CMP, TSH #### [facility] [address] [place] [address] Dr. Edelmira Bashir ACOG PANEL 2: 30 to 65on 06-27-2022..NormalThe [facility] HospitalComment on above:Result Comment: Performed at: WBPerformed By: #### [id number] #### [facility] [address] [place] [address] Dr. Edelmira Sanders Gdln ACOG Uqacntr35-63TxqhznQcwCleveland Clinic Union HospitalComment on above:Performed By: #### [id number] #### [facility] [address] [place] [address] Dr. Edelmira HirschDIAGNOSIS:CommentCincinnati VA Medical Center on above: Result Comment: NEGATIVE FOR INTRAEPITHELIAL LESION OR MALIGNANCY. Performed at: WBPerformed By: #### [id number] #### [facility] [address] [place] [address] Dr. Edelmira Altamirano AptimaNegativeNormalNegativeMercy Health Clermont HospitalCommunson healthcare gray[facility] on above:Result Comment: This nucleic acid amplification test detects fourteen high-risk HPV types (16,18,31,33,35,39,45,51,52,56,58,59,66,68) without differentiation. Performed at: =GPerformed By: #### [id number] #### [facility] [address] [place] [address] Dr. Yilan ChangHPV Genotype ReflexCommentNoProMedica Toledo Hospital on above:Result Comment: Criteria not met, HPV Genotype not performed. Performed at: WBPerformed By: #### [id number] #### [facility] [address] [place] [address] Dr. Edelmira HirschMethodology:CommentCincinnati VA Medical Center on above: Result Comment: This liquid based ThinPrep(R) pap test was screened with the use of an image guided system. Performed at: WBPerformed By: #### [id number] #### [facility] [address] [place] [address] Dr. Edelmira HirschNote:CommentCincinnati VA Medical Center on above:Result Comment: The Pap smear is a screening test designed to aid in the detection of premalignant and malignant conditions of the uterine cervix. It is not a diagnostic procedure and should not be used as the sole means of detecting cervical cancer. Both false-positive and false-negative reports do occur. . Performed at: WBPerformed By: #### [id number] #### [facility] [address] [place] [address] Dr. Edelmira HirschPerformed by:CommentCincinnati VA Medical Center on above: Result Comment: Meghan Alamo, Banquet Waiter/Waitress (ASCP) Performed at: WBPerformed By: #### [id number] #### [facility] [address] [place] [address] Dr. Edelmira HirschSpecimen adequacy:CommentCincinnati VA Medical Center on above:Result Comment: Satisfactory for evaluation. Endocervical and/or squamous metaplastic cells (endocervical component) are present. Performed at: WBPerformed By: #### [id number] #### [facility] [address] [place] [address] Dr. Edelmira Lind and Metabolite, Quant LCon 42-21-9267Ducssros LC<1.0 Invalid Interpretation [facility] on above:Result Comment: This test was developed and its performance characteristics determined by [facility]. It has not been cleared or approved by the Food and Drug Administration. Cotinine levels greater than 20.0 are consistent with the use of tobacco or tobacco cessation products. Performed At: [address] [id number] Speedy Rodriguez MD Ph:[phone] By: #### [id number], [id number], [id number], [id number], 56379816, 2541946 #### [facility] (DEFAULT) [address] [place] [address] 91434Jsgryogg LC<1.0Invalid Interpretation [facility] HospitalComment on above:Result Comment: This test was developed and its performance characteristics determined by [facility]. It has not been cleared or approved by the Food and Drug Administration. Nicotine levels greater than 2.0 are consistent with the use of tobacco or tobacco cessation products.Performed By: #### [id number], [id number], [id number], [id number], 63110779, 2958700 #### [facility] (DEFAULT) [address] [place] [address] 40127.Auto Diff 1on 99-53-2095Izmm Jerome %7 %Normal1-12[facility] SystemComment on above:Performed By: #### [id number], [id number], 2014096450, 7662327977, 37934428, 2261666 #### [facility] (DEFAULT) [address] [place] [address] 55775Dnws Abs#0.0 t20Ilfuva8.0-0.2[facility] HospitalComment on above:Performed By: #### [id number], [id number], 2581983200, 6494340876, 11982387, 3997992 #### [facility] (DEFAULT) [address] [place] [address] 87186Sxczqswll/100 WBC (Bld)0.4 %Normal0.2-2.0[facility] Comment on above:Performed By: #### [id number], [id number], 5032346925, 1131336696, 04104536, 2805531 #### [facility] (DEFAULT) [address] [place] [address] 93754Mfu Abs#1.0 p38Lytv6.0-0.4[facility] HospitalComment on above:Performed By: #### [id number], [id number], 3970793708, 3249119966, 07074204, 9862364 #### [facility] (DEFAULT) [address] [place] [address] 57998Hodqdgidfbl/100 WBC (Bld)13.5 %High0.9-4.0[facility] HospitalComment on above:Performed By: #### [id number], [id number], 0389999281, 9439680187, 91211946, 1674290 #### [facility] (DEFAULT) [address] [place] [address] 42413Babav Abs#2.1 x86Rzcpza5.3-2.9[facility] HospitalComment on above:Performed By: #### [id number], 3627181403, 1840130545, 4800541485, 12853904, 9143777 #### [facility] (DEFAULT) [address] [place] [address] 37475Vqbnemyymqn/100 WBC (Bld)29 %Vwwxjx25-02Aavcdofm Hospital Comment on above:Performed By: #### [id number], 0972879354, 2523541431, 3535693477, 18269490, 5326891 #### [facility] (DEFAULT) [address] [place] [address] 19105Enqd Abs#0.5 w27Hwrzup4.0-0.8[facility] HospitalComment on above:Performed By: #### [id number], 5462066043, 6071536340, 7769022828, 59748553, 0639543 #### [facility] (DEFAULT) [address] [place] [address] 43381Nokb Abs#3.5 b28Trwduv6.5-9.2[facility] HospitalComment on above:Performed By: #### [id number], 3585017498, 4262643705, 0698950421, 45319512, 0872222 #### [facility] (DEFAULT) [address] [place] [address] 28506Mhyeenuhswu/100 WBC (Bld)50 %Spseqg16-49Zmqcrfbg Hospital Comment on above:Performed By: #### 84508179, 9962582526, 9801417162, 7834565242, 75573466, 1317846 #### [facility] (DEFAULT) [address] [place] [address] 09350FSI w/ Auto Diffon 31-73-0268Stckcwlleop distribution width (RBC) [Ratio]13.2 %Sfilev32.5-15.0[facility] SystemComment on above: Performed By: #### 48153078, 1153982640, 8058488381, 5909474602, 32192434, 6520965 #### [facility] (DEFAULT) [address] [place] [address] 31790Nmycipbwmn (Bld) [Volume fraction]38.4 %Ozulkm20.7-40.4 [facility] SystemComment on above:Performed By: #### 00364564, 4304950812, 6094508833, 6259777589, 00206124, 1897308 #### [facility] (DEFAULT) [address] [place] [address] 25907Rvpetovlen (Bld) [Mass/Vol]12.4 g/aQStfuts53.3-15.9 [facility] SystemComment on above:Performed By: #### 82707899, 8419298552, 9726167648, 9524133768, 00681767, 3080542 #### [facility] (DEFAULT) [address] [place] [address] 40687Vxbor WBC7.1 f89Rtisxsm Interpretation CodeBlanchard Valley Health SystemComment on above:Performed By: #### 65412385, 2944289424, 7143271858, 4399747273, 49063801, 8785889 #### [facility] (DEFAULT) [address] [place] [address] 90843Vqb Diff?AutoNormalBrown [facility] HospitalComment on above: Performed By: #### 87578067, 8778754089, 2110979540, 7529927849, 91007595, 6351335 #### [facility] (DEFAULT) [address] [place] [address] (RBC) [Entitic mass]30 zvQynxry62-14Byugkyjx Hospital Comment on above:Performed By: #### [id number], 6469506966, 0186476766, 1551637916, 89991651, 3630185 #### [facility] (DEFAULT) [address] [place], [place] [address]HC (RBC) [Mass/Vol]32 g/eREtyeam31-01Nbgqzgvf Hospital Comment on above:Performed By: #### 10543106, 3681320128, 9539180732, 1890880291, 09425638, 1949009 #### [facility] (DEFAULT) [address] [place], [place] [address]V (RBC) [Entitic vol]94 gWLvtxgh08-496Oerbbtid Hospital Comment on above:Performed By: #### 63868971, 3301107052, 2532630721, 6873267551, 71131967, 4893737 #### [facility] (DEFAULT) [address] [place] [address] 88180Gkcmscvl201 e29Vidjmt819-139Crimerdi HospitalComment on above:Performed By: #### 69923437, 6155790044, 0617258082, 0031239651, 97029358, 4229274 #### [facility] (DEFAULT) [address] [place] [address] 37843Owelfusr mean volume (Bld) [Entitic vol]10.3 fLHigh 6.3-10.2MCity HospitalComment on above:Performed By: #### 61035931, 7055228835, 5355236622, 1013238470, 23077731, 6894679 #### [facility] (DEFAULT) [address] [place] [address] 36815MSI1.10 o37Cnhwhf2.70-5.30[facility] SystemComment on above:Performed By: #### 33615958, 1512743274, 0049113319, 5245422516, 76773924, 9173884 #### [facility] (DEFAULT) [address] [place] [address] 76655OLW6.1 t32Zdapot8.5-10.5[facility] SystemComment on above: Performed By: #### 20554637, 8917515271, 8384377519, 3538125654, 50777047, 2906512 #### [facility] (DEFAULT) [address] [place] [address] 81733VPH Standardon 05-84-8820yZIX Non AA>60Invalid Interpretation [facility] HospitalComment on above:Performed By: #### 49922068, 8135518730, 2348546438, 8114014532, 59290353, 8102309 #### [facility] (DEFAULT) [address] [place] [address] 56579hHJJ AA>60Invalid Interpretation [facility] Comment on above:Result Comment: Chronic Kidney disease could be indicated at eGFRs of less than 60 ml/min/1.73m2. Kidney Failure is indicated at less than 15 ml/min/1.73o4Gubxzzaqd By: #### 40011669, 5332952511, 4743089466, 7594505348, 60670778, 3159562 #### [facility] (DEFAULT) [address] [place] [address] 69887Vabecmv [Mass/Vol]3.6 g/dLNormal3.5-5.0[facility] Comment on above:Performed By: #### [id number], 5266310656, 0955170338, 5013261417, 73068581, 0993643 #### [facility] (DEFAULT) [address] [place] [address] 21027Qaafmth/Globulin [Mass ratio]1.1 {ratio}Low1.4-2.6MCity HospitalComment on above:Performed By: #### [id number], 8156352004, 8140157733, 4737859562, 53639332, 4013507 #### [facility] (DEFAULT) [address] [place] [address] 11058Csi Phos61 IU/MSfdhuh88-42Ohnzexiz HospitalComment on above:Performed By: #### 82022272, 1177850745, 0223261344, 9960922387, 20130017, 5732508 #### [facility] (DEFAULT) [address] [place] [address] 46527SQD [Catalytic activity/Vol]14.0 U/UJnntnw12.0-54.0 [facility] HospitalComment on above:Performed By: #### 50007557, 3813135745, 5672552430, 6873096389, 37521760, 8645668 #### [facility] (DEFAULT) [address] [place] [address] 80237Iajrz gap [Moles/Vol]9.0 mmol/LNormal5.0-19.0[facility] HospitalComment on above:Performed By: #### 25227772, 6410919231, 7399391406, 8188628575, 86346082, 7301349 #### [facility] (DEFAULT) [address] [place] [address] 87782MSQ [Catalytic activity/Vol]21 U/AUnirlb80-77Jnlzbagv HospitalComment on above:Performed By: #### 34218395, 6283142607, 0267453599, 5767714144, 10590177, 8311449 #### [facility] (DEFAULT) [address] [place] [address] 86041Lbnr Total0.9 mg/dLNormal0.3-1.2[facility] HospitalComment on above:Performed By: #### 02169052, 3969480319, 3957943918, 8637007152, 97865471, 8763494 #### [facility] (DEFAULT) [address] [place] [address] 76624Noaxkqh [Mass/Vol]8.6 mg/dLLow8.9-10.3[facility] Comment on above:Performed By: #### 11833990, 7255347337, 7996684791, 1108387483, 74389734, 2703464 #### [facility] (DEFAULT) [address] [place] [address] 93111Pcwlgxva [Moles/Vol]103 mmol/QVcyald012-902Nwsyeemb HospitalComment on above:Performed By: #### 46183578, 8638937388, 4609041160, 7766721592, 00095512, 9051637 #### [facility] (DEFAULT) [address] [place] [address] 27523TC8 [Moles/Vol]27 mmol/VJenczg72-94Jjgzagid Hospital Comment on above:Performed By: #### 09572547, 9650072709, 4760356323, 9036775854, 95209931, 7457779 #### [facility] (DEFAULT) [address] [place] [address] 97823Jurmoraced [Mass/Vol]0.81 mg/dLNormal0.60-1.30[facility] HospitalComment on above:Performed By: #### 60734993, 9972047768, 4266760672, 3541250392, 47191424, 7232654 #### [facility] (DEFAULT) [address] [place] [address] 04984Hhvgwvze (S) [Mass/Vol]3.4 g/dLNormal1.5-4.3[facility] HospitalComment on above:Performed By: #### 43452032, 4584941350, 0262827885, 5224425783, 10445773, 0482791 #### [facility] (DEFAULT) [address] [place] [address] 12519Yrriuvr [Mass/Vol]89.0 mg/mCJyotxg16.0-118.0[facility] HospitalComment on above:Performed By: #### 99740034, 0868471781, 6852067581, 3033381541, 56061640, 6931143 #### [facility] (DEFAULT) [address] [place] [address] 35452Txiadcuixu100 mOsm/LInvalid Interpretation CodeBrown Memorial Hospital HospitalComment on above:Performed By: #### [id number], 5445579004, 7799556292, 9727835941, 48102702, 4865146 #### [facility] (DEFAULT) [address] [place] [address] 60005Ppvdxrnii [Moles/Vol]4.0 mmol/LNormal3.6-5.1[facility] HospitalComment on above:Performed By: #### 32388245, 1703779410, 8454702965, 2291616880, 69404573, 4859345 #### [facility] (DEFAULT) [address] [place] [address] 64379Uqjzbth [Mass/Vol]7.0 g/dLNormal6.5-8.1[facility] Comment on above:Performed By: #### [id number], 5885260940, 5740836063, 9793256521, 58175008, 9428034 #### [facility] (DEFAULT) [address] [place] [address] 98778Iowoqd [Moles/Vol]135.0 mmol/RPbs686.0-144.0[facility] HospitalComment on above:Performed By: #### 06172408, 5767965824, 7042817505, 4717583405, 67962287, 5760200 #### [facility] (DEFAULT) [address] [place] [address] 92950Codx nitrogen [Mass/Vol]12 mg/dLNormal8-26[facility] HospitalComment on above:Performed By: #### [id number], 4858882627, 8954562424, 1796468264, 04991065, 3368250 #### [facility] (DEFAULT) [address] [place] [address] 64393Vywd nitrogen/Creatinine [Mass ratio]15.0 mg/mgNormal 4.6-16.2[facility] HospitalComment on above:Performed By: #### [id number], 0334802250, 8274161651, 4937688361, 90516226, 1081053 #### [facility] (DEFAULT) [address] [place] [address] 45111KndB3o Standardon 03-30-2021.Hb14.4Invalid Interpretation [facility] HospitalComment on above:Performed By: #### 91888644, 3130637240, 4089532949, 2429220616, 06647703, 8033432 #### [facility] (DEFAULT) [address] [place] [address] 78080.Hgb A1c0.48 g/dLInvalid Interpretation CodeBrown Memorial Hospital HospitalComment on above:Performed By: #### [id number], 5278292532, 2667795671, 1778948778, 70398352, 6341882 #### [facility] (DEFAULT) [address] [place] [address] 94424Nnlyjur [Mass/Vol]103 mg/dLInvalid Interpretation Code [facility] SystemComment on above:Performed By: #### [id number], 8930524077, 1558585394, 5512100528, 08961669, 5994056 #### [facility] (DEFAULT) [address] [place] [address] 68581PbQ6h (Bld) [Mass fraction]5.2 %Normal4.6-6.2MCity HospitalComment on above:Performed By: #### 15930192, 4929393276, 2479660972, 1067619633, 92494644, 8719267 #### [facility] (DEFAULT) [address] [place] [address] 26752Gdthl Panel Standardon 55-99-5576Sqwtwmowtao [Mass/Vol] 171.0 mg/hWMijsjr63.0-200.0[facility] HospitalComment on above:Result Comment: Desirable - Less than 200 mg/dL Borderline high risk - 200-239 mg/dL High risk - 240 mg/dL and over.Performed By: #### 50110096, 3611222891, 3408914903, 2464322343, 36360892, 7323586 #### [facility] (DEFAULT) [address] [place] [address] 30376Zfrbslrcfyh in HDL [Mass/Vol]64 mg/eUZlaixm51-65Ckbjcbiq HospitalComment on above:Result Comment: High risk - <40 mg/dL.Performed By: #### 92535372, 8770600116, 9779806891, 6336000065, 58430851, 6948568 #### [facility] (DEFAULT) [address] [place] [address] 67270Zcqgxtcfxnm in LDL [Mass/Vol]93 mg/dLNormal1-100[facility] HospitalComment on above:Result Comment: Optimal - Less than 100 mg/dL Borderline high risk - 130-159 mg/dL High risk - 160-189 mg/dL.Performed By: #### [id number], 5908638886, 8629421926, 4369359844, 00064822, 3631711 #### [facility] (DEFAULT) [address] [place] [address] 93207Kjlonqnwflf.total/Cholesterol in HDL [Mass ratio]2.7 {ratio}Normal0.0-4.5[facility] HospitalComment on above:Performed By: #### 96114943, 0206456740, 0507380811, 7192792904, 43773644, 3249867 #### [facility] (DEFAULT) [address] [place] [address] 53212Oiwcpthusonp [Mass/Vol]73.0 mg/dLNormal0.0-150.0[facility] HospitalComment on above:Performed By: #### 91105642, 8730769946, 4923650670, 0666785457, 34976470, 0320047 #### [facility] (DEFAULT) [address] [place] [address] 40351XKJM.15 mg/dLNormal5-40[facility] HospitalComment on above: Performed By: #### 98962314, 1464372415, 2913981403, 1745251947, 76311601, 9354759 #### [facility] (DEFAULT) [address] [place] [address] 19707Edjiypzy and Metabolite, Quant LCon 11-62-4090Pluawcih LC <1.0Invalid Interpretation [facility] HospitalComment on above:Result Comment: This test was developed and its performance characteristics determined by [facility]. It has not been cleared or approved by the Food and Drug Administration. Cotinine levels greater than 20.0 are consistent with the use of tobacco or tobacco cessation products. Performed At: [address] [id number] Speedy Rodriguez MD Ph:[phone] By: #### 06393445, 1520823385, 6391212915, 7531431009, 64327398, 7234413 #### [facility] (DEFAULT) [address] [place] [address] 04853Qgqhrmrd LC<1.0Invalid Interpretation [facility] HospitalComment on above:Result Comment: This test was developed and its performance characteristics determined by [facility]. It has not been cleared or approved by the Food and Drug Administration. Nicotine levels greater than 2.0 are consistent with the use of tobacco or tobacco cessation products.Performed By: #### [id number], 9833977102, 1182154309, 3912158571, 28039798, 5694011 #### [facility] (DEFAULT) [address] [place] [address] 44844.Auto Diff 1on 09-33-3370Anel Jerome %8 %Normal1-12[facility] SystemComment on above:Performed By: #### 9973874, 35379788, 0281728437, 9402514985, 8045806796, 92071639 #### [facility] (DEFAULT) [address] [place] [address] 47026Jtmw Abs#0.0 j63Rzosbp2.0-0.2[facility] HospitalComment on above:Performed By: #### 7200328, 90940039, 6897171106, 6825689271, 4519711619, 32990943 #### [facility] (DEFAULT) [address] [place] [address] 10224Qaplojyhh/100 WBC (Bld)0.6 %Normal0.2-2.0[facility] Hospital Comment on above:Performed By: #### 6578366, 52047199, 6065593293, 6294093063, 0926146521, 02108359 #### [facility] (DEFAULT) [address] [place] [address] 61038Jqr Abs#0.7 c92Puse0.0-0.4[facility] HospitalComment on above:Performed By: #### 4692336, 63266748, 4155219210, 8176452118, 1309565012, 03722724 #### [facility] (DEFAULT) [address] [place] [address] 43929Dambcpnxfsh/100 WBC (Bld)13.1 %High0.9-4.0[facility] HospitalComment on above:Performed By: #### 0887946, 80289078, 1995927883, 6077252315, 5906246057, 15906051 #### [facility] (DEFAULT) [address] [place] [address] 18447Envos Abs#1.8 m69Qnofjj7.3-2.9[facility] HospitalComment on above:Performed By: #### 2278231, 70582220, 2003542595, 4699071582, 8805509223, 92113167 #### [facility] (DEFAULT) [address] [place] [address] 97975Iaskvubyshj/100 WBC (Bld)33 %Yataoy72-86Btuxappw Hospital Comment on above:Performed By: #### 8021403, 69522797, 5054788601, 8415465653, 3378694756, 11251208 #### [facility] (DEFAULT) [address] [place] [address] 55488Ysvd Abs#0.4 f61Csqrin4.0-0.8[facility] HospitalComment on above:Performed By: #### 2655555, 86214465, 3210974118, 9166805956, 6084314287, 31942269 #### [facility] (DEFAULT) [address] [place] [address] 69624Rrxx Abs#2.4 f25Tvmxjl7.5-9.2[facility] HospitalComment on above:Performed By: #### 2117919, 62394023, 9575091374, 6096211878, 2685275764, 21303069 #### [facility] (DEFAULT) [address] [place] [address] 55873Isaugdhtlga/100 WBC (Bld)45 %Sianbu89-30Wpfnksap Hospital Comment on above:Performed By: #### 7069844, 90508468, 1098071640, 4118334452, 1765466849, 68154568 #### [facility] (DEFAULT) [address] [place] [address] 04371EMS w/ Auto Diffon 49-83-0294Ounpiryemsk distribution width (RBC) [Ratio]13.4 %Fxstxj22.5-15.0[facility] SystemComment on above: Performed By: #### 7856991, 72812248, 0845489499, 8408276038, 7504967997, 05610461 #### [facility] (DEFAULT) [address] [place] [address] 06934Ixjyumvgue (Bld) [Volume fraction]38.4 %Mmaywt31.7-40.4 [facility] SystemComment on above:Performed By: #### 0288801, 57690296, 7595054929, 8808407652, 6290393132, 28894409 #### [facility] (DEFAULT) [address] [place] [address] 86172Zbahzdvxsv (Bld) [Mass/Vol]12.6 g/iKOwcbto02.3-15.9 [facility] SystemComment on above:Performed By: #### 7051666, 03783772, 9844085571, 4045431050, 6695348643, 77315562 #### [facility] (DEFAULT) [address] [place] [address] 83814Vnygw WBC5.3 n21Ktkrnqt Interpretation CodeBlanchard Valley Health SystemComment on above:Performed By: #### 8465612, 81766055, 5054182700, 7596320245, 6205172044, 38921626 #### [facility] (DEFAULT) [address] [place] [address] 44508Mug Diff?AutoNormal[facility] HospitalComment on above: Performed By: #### 2219818, 76237996, 6631541414, 5231798659, 5673916598, 81196087 #### [facility] (DEFAULT) [address] [place] [address] (RBC) [Entitic mass]29 chJmbhva96-37Qnolwdyz Hospital Comment on above:Performed By: #### 7905179, 76037182, 2807735494, 1036196479, 1737604931, 53535337 #### [facility] (DEFAULT) [address] [place], [place] [address]HC (RBC) [Mass/Vol]33 g/xGCaquzh09-75Fsstltoe Hospital Comment on above:Performed By: #### 2514109, 14008220, 0139563918, 0050987020, 9532947469, 41467237 #### [facility] (DEFAULT) [address] [place] [address] 54231LOR (RBC) [Entitic vol]89 mEUufczq26-042Juixsrbb Hospital Comment on above:Performed By: #### 4284878, 63365618, 3614744623, 2913296536, 1493028417, 74213078 #### [facility] (DEFAULT) [address] [place] [address] 53445Rkixkomq289 k16Omcrmz507-332Grarmftr HospitalComment on above:Performed By: #### 8321862, 30344099, 4769733276, 4382810528, 2336494532, 11090442 #### [facility] (DEFAULT) [address] [place] [address] 52304Agcuobvn mean volume (Bld) [Entitic vol]10.1 fLNormal 6.3-10.2[facility] HospitalComment on above:Performed By: #### 4286343, 96927845, 0167176347, 1611661406, 4413878696, 67084329 #### [facility] (DEFAULT) [address] [place] [address] 56496TCD4.32 k65Nxbomh3.70-5.30[facility] SystemComment on above:Performed By: #### 8967906, 96194248, 6339488429, 0987587119, 6752406773, 08822900 #### [facility] (DEFAULT) [address] [place] [address] 70428FXV8.3 f30Yyxoyl3.5-10.5[facility] SystemComment on above: Performed By: #### 0608643, 56064856, 2503319463, 7562601509, 2759485519, 97612742 #### [facility] (DEFAULT) [address] [place] [address] 57955BEK Standardon 75-52-5786bCKQ Non AA>60Invalid Interpretation [facility] HospitalComment on above:Performed By: #### 6576365, 08240237, 4442698823, 7519796088, 3353239270, 88841528 #### [facility] (DEFAULT) [address] [place] [address] 11368uNED AA>60Invalid Interpretation [facility] Comment on above:Result Comment: Chronic Kidney disease could be indicated at eGFRs of less than 60 ml/min/1.73m2. Kidney Failure is indicated at less than 15 ml/min/1.53z3Misjhwzfz By: #### 8151035, 68637604, 1616383947, 9534110791, 1805511348, 28866442 #### [facility] (DEFAULT) [address] [place] [address] 68702Qvsbusv [Mass/Vol]3.8 g/dLNormal3.5-5.0[facility] Comment on above:Performed By: #### 6737954, 29275464, 8896508644, 1023973032, 7477582793, 94719248 #### [facility] (DEFAULT) [address] [place] [address] 22169Zygfoqp/Globulin [Mass ratio]1.1 {ratio}Low1.4-2.6[facility] HospitalComment on above:Performed By: #### 3374726, 83548169, 4328736743, 7929908834, 7448954582, 54233585 #### [facility] (DEFAULT) [address] [place] [address] 24701Oqd Phos40 IU/WKbfkfz19-34Kebxnfxy HospitalComment on above:Performed By: #### 6217423, 68545101, 0596550607, 9025939386, 0636552083, 45243515 #### [facility] (DEFAULT) [address] [place] [address] 05879ILL [Catalytic activity/Vol]13.0 U/LLow14.0-54.0[facility] HospitalComment on above:Performed By: #### 7228339, 72631375, 4260674138, 9703510458, 5395948127, 16928503 #### [facility] (DEFAULT) [address] [place] [address] 68641Mtgfv gap [Moles/Vol]11.0 mmol/LNormal5.0-19.0[facility] HospitalComment on above:Performed By: #### 8351022, 70237302, 9353566363, 5749248629, 5810971395, 05620919 #### [facility] (DEFAULT) [address] [place] [address] 26786RTU [Catalytic activity/Vol]19 U/CLqdddq06-08Jvhpxqza HospitalComment on above:Performed By: #### 4556464, 01856814, 3346861669, 2836835157, 9820058543, 59993098 #### [facility] (DEFAULT) [address] [place] [address] 45794Eora Total1.1 mg/dLNormal0.3-1.2[facility] HospitalComment on above:Performed By: #### 1883493, 42777420, 7049248986, 7868657535, 2722591819, 29557884 #### [facility] (DEFAULT) [address] [place] [address] 99569Xuhzqvy [Mass/Vol]9.1 mg/dLNormal8.9-10.3[facility] Comment on above:Performed By: #### 5608812, 53311998, 9031353926, 5514214856, 6481503760, 78902493 #### [facility] (DEFAULT) [address] [place] [address] 85719Oqzgawaw [Moles/Vol]107 mmol/YAxzifd702-597Eqogfagb HospitalComment on above:Performed By: #### 4263244, 91253827, 3711597265, 0656673173, 4199853708, 18574899 #### [facility] (DEFAULT) [address] [place] [address] 58550WL9 [Moles/Vol]23 mmol/ZTjxboz26-39Fdykhbvb Hospital Comment on above:Performed By: #### 1558516, 85658194, 4022750561, 9616146482, 5410268985, 36097479 #### [facility] (DEFAULT) [address] [place] [address] 10410Qsoxrtplkn [Mass/Vol]0.75 mg/dLNormal0.60-1.30[facility] HospitalComment on above:Performed By: #### 2899217, 26976684, 2883056746, 0959853775, 0997424195, 44431042 #### [facility] (DEFAULT) [address] [place] [address] 35631Zehbumum (S) [Mass/Vol]3.4 g/dLNormal1.5-4.3[facility] HospitalComment on above:Performed By: #### 9299930, 30120494, 9053715762, 3246342903, 6160348380, 51056346 #### [facility] (DEFAULT) [address] [place] [address] 78958Iqxpmey [Mass/Vol]98.0 mg/kEDiwdlz73.0-118.0[facility] HospitalComment on above:Performed By: #### 3696123, 10476682, 2669380295, 2262785232, 8009609653, 16342335 #### [facility] (DEFAULT) [address] [place] [address] 52635Iccflmbile877 mOsm/LInvalid Interpretation CodeBrown Memorial Hospital HospitalComment on above:Performed By: #### 0475749, 93913086, 9251024996, 4013084185, 0649035311, 21401460 #### [facility] (DEFAULT) [address] [place] [address] 07078Csopsvwgs [Moles/Vol]4.0 mmol/LNormal3.6-5.1[facility] HospitalComment on above:Performed By: #### 8671629, 06797356, 1834521660, 7152061200, 6753413017, 37527382 #### [facility] (DEFAULT) [address] [place] [address] 45951Lzhhjwk [Mass/Vol]7.2 g/dLNormal6.5-8.1[facility] Hospital Comment on above:Performed By: #### 7314088, 87476855, 0130820099, 1151410879, 6579609389, 83029171 #### [facility] (DEFAULT) [address] [place] [address] 48891Bnjyyj [Moles/Vol]137.0 mmol/JHnrikr725.0-144.0[facility] HospitalComment on above:Performed By: #### 0392384, 62490414, 6053971521, 6723260144, 4667624084, 69040270 #### [facility] (DEFAULT) [address] [place] [address] 96360Utta nitrogen [Mass/Vol]20 mg/dLNormal8-26[facility] HospitalComment on above:Performed By: #### 8382978, 69608611, 9773312339, 6994100429, 8758726298, 59560991 #### [facility] (DEFAULT) [address] [place] [address] 65431Ltro nitrogen/Creatinine [Mass ratio]27.0 mg/mgHigh 4.6-16.2[facility] HospitalComment on above:Performed By: #### 9442724, 94842088, 8633542455, 6444359586, 0633206213, 23635427 #### [facility] (DEFAULT) [address] [place] [address] 28704VmxP1d Standardon 04-10-2020.Hb14.7Invalid Interpretation CodeBlanchard Valley Health SystemComment on above:Performed By: #### 47896424, 2364483533, 4072075900, 8283286186, 88144266, 0952607 #### [facility] (DEFAULT) [address] [place] [address] 05889.Hgb A1c0.51 g/dLInvalid Interpretation [facility] HospitalComment on above:Performed By: #### 64054614, 3160619259, 1194613876, 7511620913, 44717385, 9366697 #### [facility] (DEFAULT) [address] [place] [address] 31043Qqwpkxy [Mass/Vol]106 mg/dLInvalid Interpretation Code [facility] SystemComment on above:Performed By: #### 16318719, 6090394277, 7424521693, 5473892861, 25513726, 6190214 #### [facility] (DEFAULT) [address] [place] [address] 87044VnF2k (Bld) [Mass fraction]5.3 %Normal4.6-6.2[facility] HospitalComment on above:Performed By: #### 03728654, 3132122059, 4547947567, 5120607409, 73648545, 3655743 #### [facility] (DEFAULT) [address] [place] [address] 25841Kikel Panel Standardon 28-80-4683Zuhcbywaskv [Mass/Vol] 162.0 mg/oWZtxjmu54.0-200.0[facility] HospitalComment on above:Result Comment: Desirable - Less than 200 mg/dL Borderline high risk - 200-239 mg/dL High risk - 240 mg/dL and over.Performed By: #### 0597710, 46176992, 8673433954, 5128274502, 6932132688, 94952259 #### [facility] (DEFAULT) [address] [place] [address] 98072Dzbapejpgdq in HDL [Mass/Vol]64 mg/qVTlyobx29-78Nikoqcli HospitalComment on above:Result Comment: High risk - <40 mg/dL.Performed By: #### 2654770, 92703189, 5973255521, 3722771324, 1845656885, 72671195 #### [facility] (DEFAULT) [address] [place] [address] 44491Pcpfgjhbyxs in LDL [Mass/Vol]90 mg/dLNormal1-100[facility] HospitalComment on above:Result Comment: Optimal - Less than 100 mg/dL Borderline high risk - 130-159 mg/dL High risk - 160-189 mg/dL.Performed By: #### 9079083, 89514877, 2035856554, 3907292325, 8331798348, 67858213 #### [facility] (DEFAULT) [address] [place] [address] 41988Raptaeyjuqb.total/Cholesterol in HDL [Mass ratio]2.5 {ratio}Normal0.0-4.5[facility] HospitalComment on above:Performed By: #### 1224190, 87463582, 4482382230, 7389624447, 5795797864, 38475534 #### [facility] (DEFAULT) [address] [place] [address] 37009Thmujqfzzkmb [Mass/Vol]38.0 mg/dLNormal0.0-150.0[facility] HospitalComment on above:Performed By: #### 4659763, 58324343, 5554138843, 4733656142, 0633687435, 75492691 #### [facility] (DEFAULT) [address] [place] [address] 22867IVRS.8 mg/dLNormal5-40[facility] HospitalComment on above: Performed By: #### 9318651, 86091713, 5874814073, 1404100001, 1563310534, 03422420 #### [facility] ([facility]) [address] [place] [address] Vital Signs Date TimeVital SignValuePerforming YavoklqavLsrzagvp73-76-2764 15:10-0400Body efjkyu076.56 cmTess Leahy MD Work Phone: [facility]06-17-2025 15:10-0400 Body mass index (BMI) [Ratio]22.5 kg/p0PolkzcTess Leahy MD Work Phone: [phone]06-17-2025 15:10-0400 Body tefnpi06.47 kgTess Leahy MD Work Phone: [phone]06-17-2025 15:10-0400 Diastolic blood hxtkqoxz02 mm[Hg]Tess Leahy MD Work Phone: [phone]06-17-2025 15:10-0400 Heart rate55 /Carola Leahy MD Work Phone: [phone]06-17-2025 15:10-0400 Systolic blood mm[Hg]Tess Leahy MD Work Phone: [phone] [place], [place] [address]5-12-2025 14:48-0400 Body .56 cmAnup Pearl MD Work Phone: [phone]05-12-2025 14:48-0400 Body mass index (BMI) [Ratio]22.5 kg/x3XzwbtvlAnup Pearl MD Work Phone: [phone]05-12-2025 14:48-0400 Body jzihgn91.53 kgAnup Pearl MD Work Phone: [phone]05-12-2025 14:48-0400 Diastolic blood pyuuxcmb18 mm[Hg]Anpu Pearl MD Work Phone: [phone]05-12-2025 14:48-0400 Heart rate69 /minAnup Pearl MD Work Phone: [facility]05-12-2025 14:48-0400 SaO2% (BldA) [Mass fraction]97 %Anup Pearl MD Work Phone: [phone]05-12-2025 14:48-0400 Systolic blood rzbghthu452 mm[Hg]Anup Pearl MD Work Phone: [phone]01-22-2025 14:58-0500 Body mass index (BMI) [Ratio]22.34 kg/s7Yrygw Marcus DO Work Phone: [phone] HospitalBqbbupmsjy23-02-5776 14:58-0500Body .02 kgCorey Marcus DO Work Phone: [phone] HospitalMrezssnlsu65-72-4424 14:58-0500Diastolic blood zizuvcjn36 mm[Hg]Triston Marcus DO Work Phone: [phone]-[facility] HospitalPfmcahtlgg07-34-4318 14:58-0500Systolic blood urqxyvco999 mm[Hg]Triston Marcus DO Work Phone: [phone]11-18-2024 14:43-0500Body iguzbf730.56 cmTess Leahy MD Work Phone: [phone]11-18-2024 14:43-0500 Body mass index (BMI) [Ratio]22.5 kg/c7BpqjlwTess Leahy MD Work Phone: [phone] [place], [place] [address]11-18-2024 14:43-0500 Body zwxuhn78.59 kgTess Leahy MD Work Phone: [phone]11-18-2024 14:43-0500 Diastolic blood tajjqmjl99 mm[Hg]Tess Leahy MD Work Phone: [phone]11-18-2024 14:43-0500 Heart rate55 /minTess Leahy MD Work Phone: [phone]11-18-2024 14:43-0500 Systolic blood mm[Hg]Tess Leahy MD Work Phone: [facility]06-03-2024 15:46-0400 Body .56 cmMD Alis Alt-Aniket Work Phone: [facility]06-03-2024 15:46-0400 Body mass index (BMI) [Ratio]22.7 kg/m2MD Alis Alt-Aniket Work Phone: [facility]06-03-2024 15:46-0400 Body cegcxn24.04 kgMD Alis Alt-Aniket Work Phone: [facility]06-03-2024 15:46-0400 Diastolic blood ezqlqzvt28 mm[Hg]MD Alis Park-Aniket Work Phone: [facility]06-03-2024 15:46-0400 Heart rate54 /minMD Alis Alt-Aniket Work Phone: [facility]06-03-2024 15:46-0400 Systolic blood eauljsxn127 mm[Hg]MD Alis Park-Aniket Work Phone: [facility]03-13-2024 14:03-0400 Blood Pressure LocationMichael [facility]ILL [facility] Lshbslum78-09-7137 14:03-0400Diastolic blood bhzrnapg00 mm[Hg]Anup NILL [facility] Kybrwfoz14-10-4239 14:03-0400Heart rate 72 /minMichael NILL [facility] Wvuzhblv61-60-5550 14:03-0400 Respiratory rate16 /minMichael NILL [facility]03-13-2024 14:03-0400Systolic blood ynyeprta693 mm[Hg]Anup NILL [facility] [place] Encounters Encounter DateEncounter [facility] ProviderFacilityStart: 04-23-2025 End: 63-57-6445srnwovdoyqSoelgdw R Nill-[facility] [place] [facility]ospStart: 04-23-2025 End: 84-72-8299Agmlibzn ReferredAnup Pearl MD FACS-[facility] [place]ospStart: 04-23-2025 End: 64-35-8205agsnnzeagtJqbybtd R NILLFacility:CD:[id number]: 01-15-2025 End: 68-03-0913qxzxpxwmzdGfvmek E Braun MD Work Phone: [facility] Work Phone: Start: 01-15-2025 End: 37-70-0358Hdarpmha ReferredAnup Pearl MD FACS-[facility] [place] [facility]ospStart: 01-15-2025 End: 12-57-3622tyyzytsfuuEnyxdhv R NILLFacility:CD:[id number]: 12-04-2024 Non-patient / Non-visitTess Leahy MD-[facility] Work Phone: Start: 12-03-2024 End: 95-10-5970Afpbzdp encounter procedureTess Leahy MD-[place] Work Phone: Start: 12-03-2024 End: 39-59-3697Eakqpmi encounter statusTess Leahy M[facility]et[facility]art: 11-20-2024 End: 66-12-8531Gvhwxauqj Result EncounterCorey Marcus DO Work Phone: [facility] External Department UnsolicitedStart: 11-20-2024 End: 25-96-1510Ziufhcjte Result EncounterCorey Marcus DO Work Phone: [facility] External Department UnsolicitedStart: 10-28-2024 End: 06-38-2262hfelskyxuqLfcfswd Nill MD Work Phone: [facility] Work Phone: Start: 10-28-2024 End: 21-54-3802Jxfkdkp encounter procedureAnup Pearl MD Work Phone: [facility] [facility] Work Phone: Start: 14-53-8146Grj-patient / Non-visitAunp Pearl MD Work Phone: [facility] Physician [facility] Work Phone: Start: 10-02-2024 End: 95-93-5616cwexzhpgdkPohtjvj R [facility] Work Phone: Start: 10-02-2024 End: 07-82-7262Nnaibnsc ReferredAnup Pearl MD Work Phone: [facility] Path Spec [facility] HospStart: 87-03-5234Uov-patient / Non-visitAnup Pearl MD Work Phone: [facility] Physician [facility] Work Phone: Start: 10-02-2024 End: 56-26-6739agaelasdajNzbxfhf R NILLFacility:CD:[id number]: 09-24-2024 End: 02-14-8104qnnbdluseqMbmddfh R NILLFacility: BellevueStart: 07-10-2024 End: 06-54-8904Ilchrzg encounter procedureCorey Marcus DO Work Phone: [facility] Work Phone: Start: 07-10-2024 End: 56-12-4304Zhytbqcv flow sheetCorey Marcus DO Work Phone: [facility] BCP OBComment on above:Well woman exam with routine gynecological exam; Breast cancer screening by mammogram; Hot flashesStart: 07-10-2024 End: 10-81-0917orokodyqboSEAVN FAZIONot AvailableStart: 07-10-2024 End: 00-18-4129Bxzknp flowsheetCorey Marcus DO Work Phone: [facility] BCP OBStart: 07-10-2024 End: 57-96-4969Gfhppc flowsheetCorey Marcus DO Work Phone: [facility] OBStart: 07-10-2024 End: 02-76-8523Vtxcprsop Result EncounterCorey Marcus DO Work Phone: [facility] External Department UnsolicitedStart: 05-06-2024 End: 99-80-1167coorqmwkldUnnrmv E Braun MD Work Phone: [facility] Work Phone: Start: 05-06-2024 End: 21-07-4290Tjivrlx encounter procedureTess Leahy MD Work Phone: [facility] Work Phone: Start: 02-14-2024 End: 31-09-9074pgfhhtkddlPX Marcia E Braun Work Phone: [facility] Work Phone: Start: 02-14-2024 End: 43-65-8530Gjjegfhn ReferredMD Tess Leahy Work Phone: [facility]-LAB Path Spec [facility] HospStart: 65-49-1571Mhq-patient / Non-visitTess Leahy MD Work Phone: [facility] Work Phone: Start: 01-30-2024 End: 21-44-1025gakgmkwowuKWPMMOG S WRIGHTNot AvailableStart: 11-23-2023 End: 46-52-1381Zmdvkqysr Result EncounterCorey Marcus DO Work Phone: [facility] External Department UnsolicitedStart: 11-23-2023 End: 73-23-6661Kpxmbajts Result EncounterCorey Marcus DO Work Phone: [facility] External Department UnsolicitedStart: 11-20-2023 Patient encounter statusMD Alis Alt-Aniket Work Phone: [facility]: 11-20-2023 End: 54-30-1840bulmnodxfwMI Alis Alt-Aniket Work Phone: [facility] Work Phone: Start: 11-20-2023 End: 44-71-8956Vljfqtmvh for general adult medical examination without abnormal findingsMD Alis Alt-Aniket Work Phone: [facility]: 11-20-2023 End: 66-65-9867Dcqxdga encounter procedureMD Alis Alt-Aniket Work Phone: [facility] Work Phone: Start: 65-95-4488Ogh-patient / Non-visitMD Alis Alt-Aniket Work Phone: [facility] Physician [facility] Work Phone: Start: 91-33-4668Nan-patient / Non-visitMD Alis Alt-Aniket Work Phone: [facility] Work Phone: Start: 10-11-2023 End: 85-95-8125tcgmhomcflSQ Alis Alt-Aniket Work Phone: [facility] Work Phone: Start: 10-11-2023 End: 76-69-9889Ghejktkb ReferredMD Alis Alt-Aniket Work Phone: [facility]-LAB Path Spec [place] HospStart: 39-51-9277Wyn-patient / Non-visitMD Alis Alt-Aniket Work Phone: [facility] Physician [facility] Work Phone: Start: 08-30-2023 End: 57-63-3470Uthujzv encounter procedureMichael R NILL General Surgery Nill/Said [place] Start: 06-29-2023 End: 59-91-9786Fpjruvvrx Result EncounterCorey Marcus DO Work Phone: [facility] External Department UnsolicitedStart: 06-29-2023 End: 60-73-5584Dhwppktas Result EncounterCorey Marcus DO Work Phone: [facility] External Department UnsolicitedStart: 11-11-2022 End: 48-10-4209seruuacxiwYJ STEVE DAS .Facility:Q9Bhhgd: 11-05-2022 Encounter for general adult medical examination without abnormal findingsDR TESS [facility]revue HospitalStart: 11-01-2022 End: 87-60-9194kretnxsgvqLO MARCIA E BRAUNFacility:K3Qvyju: 11-01-2022 End: 83-48-4163Exhmvkznj for general adult medical examination without abnormal findingsDR TESS LEAHYFacility:Y9Pmmyx: 06-23-2022 End: 91-34-0375ffhwqcvojiPP STEVE DAS .Facility: Procedures DateProcedureProcedure DetailPerforming ClinicianStart: 24-36-2613EW TOMOSYNTHESIS SCREENING BICorey Marcus DO Work Phone: Start: 80-59-1105RuplqxjyhrgOtqtw Marcus DO Work Phone: Start: 40-36-9819ULU,APTIMA HPV,AGE GDLNCorey Marcus DO Work Phone: Start: 12-61-1000Tarojneqzps observation [Identifier] in Cervix by Cyto stainCorey Marcus DO Work Phone: Start: 15-17-5177KA TOMOSYNTHESIS SCREENING BICorey Marcus DO Work Phone: Start: 88-54-8726XjiwnhkttgrIwhqo Marcus DO Work Phone: Start: 77-01-0988NB DEXA AXIAL SKELETONCorey Marcus DO Work Phone: Start: 43-81-3191Mhlwcgltfag observation [Identifier] in Cervix by Cyto stainCorey Marcus DO Work Phone: Start: 72-00-4684StjvebhqacvFmipe Marcus DO Work Phone: Start: 68-53-5190KvnqepltpgoWsmkczs NILL Start: 14-71-0765QxnhngqprpqottecshaohyfxdwPwgcnql NILL Start: 59-48-7973UgotvicmuewRygbcbc NILL Start: 08-01-8444GnxwbzuxvnhwwqbszqfviiadqvUwhzmps NILL Cesarean sectionMichael NILL CholecystectomyMichael NILL Excision of ganglion of footMichael NILL Plan of Treatment DateCare ActivityDetailAuthorStart: 19-76-3468Ggqigfujk for malignant neoplasm of cervixNOMS HealthcareStart: 37-77-8344Tuzlmzoya for malignant neoplasm of colonNOMS HealthcareStart: 15-14-3680Bnfkphmor for malignant neoplasm of cervix [facility] HealthcareStart: 07-14-2025 End: 25-29-9523Mhofviw encounter procedureNOMS BCP OBStart: 36-67-9770SniyztnudMetroHealth Parma Medical Centertart: 35-93-4738Omoacuznb for malignant neoplasm of breastMammogramNOMS HealthcareStart: 07-10-2024 End: 30-33-5824Hvrhczf encounter yivtykfci83/22/2025 2:40 PM EST Office Visit [facility] [address] [place] [address] Triston Velazquez, DO [address] [place] [address] ArrivedNOGLENDORA COMMUN[facility] OBComment on above:ArrivedStart: 07-10-2024 End: 86-78-9772PZ Breast - bilateral ScreeningBilateral screening mammogram Imaging Routine Breast cancer screening by mammogram Expected: 07/10/2024, Expires: 09/07/2025[facility] Work Phone: comment on above:Expected: 07/10/2024, Expires: 09/07/2025Start: 21-12-0359Uwvvmopzc vaccinationInfluenza Vaccine (#1)[facility] HealthcareStart: 87-11-8772Gnlljybza for malignant neoplasm of cervixHPV/Cotest [facility] HealthcareStart: 83-52-0370Smlqqfitx for malignant neoplasm of colonNOOhioHealth O'Bleness HospitalTHIN PREP TIS PAP AND HR HPV DNATHIN PREP TIS PAP AND HR HPV DNA Pathology and Cytology Routine Well woman exam with routine gynecological exam Ordered: 07/10/2024[facility] HospitalComment on above:Ordered: 07/10/2024 Immunizations Immunization DateImmunizationNotesCare HszvzbaxUjkazsqt60-22-8881wgqjagcit virus vaccine, unspecified formulationCorey Marcus DO Work Phone: [facility] HospitalZieqxbemzh00-86-9567rbkscejnq virus vaccine, unspecified formulationMichael NILL [facility] Surgery Gypumvxx69-97-7532CLOX-UkJ-2 (COVID-19) Ad26 vaccine, recombinantMichael NILL 612-1624Mpoijy-RadqfSelect [facility] [place] Comment on above:Result Comment: 2023-08-21: [id number] Payers DatePayer CategoryPayerPolicy [id number] Lawrence Blue ShieldBS Member Subscriber Plan / Payer (Effective 2022-Present) Name: Ioana Marie Member ID: [id number] Relation to Subscriber: Self Name: Ioana Marie Subscriber ID: [id number] PayerID: Not on file Type: Not on file Address: [facility] [address] [place] [id number] [id number] 2.0.1.050520.3.579.2. [id number] 2.0.1.168162.3.57[id number] 2.0.1.609629.3.57[id number] 2..1.006237.3.57[id number] 2.0.1.005979.3.57[id number] 2.0.1.577667.3.57[id number] 2..1.067324.3.57[id number] 2.0.1.920761.3.57[id number] 2..1.460[id number] [id number]-1s5d-u052-i3167o681c59Ye[id number] 2.840.1.2[id number] 2.0.1.940231.3.579.2.531 [id number] 2.840.1.878883.3.579.2.531 Social History DateTypeDetailFacilityStart: 08-30-2023 End: 41-66-7720Anvdopq smoking statusEx-smoker (finding)[facility] [place] Start: 77-61-6377Zawwjvs smoking statusNeverGeneral Surgery [facility] Health System East CampusueStart: 05-31-2023 End: 14-00-8919Vkf [facility] At [facility] CenterStart: 98-46-4288Ouj Assigned At [facility] Hospitaltart: 05-06-2024 End: 25-31-3206XysCrtfyn (finding)[facility] Centertart: 87-93-2261Vevigcu smoking status NHISNever smoked tobaccoNOIA HealthcareStart: 06-26-2023 End: 28-77-6537Mnulfytjx beverage intakeCurrent drinker of alcohol (finding)[facility] HealthcareStart: 05-31-2023 End: 77-46-0509Gxhwhsm of Social functionNOMS HealthcareStart: 04-81-6661Fgmorxq CommentOccasional alcohol useNOMS HealthcareStart: 48-61-1201Mbe assigned at birthNot on fileLONE PEAK HOSPITAL HealthcareNEGATED: Highlighted [facility] Functional Status LskpNspahbodbhMuvmvgDkvuyklu82-19-4710Kqhokttxfi StatusN/AGeneral Surgery [place] Clinical Notes 02-14-2013 to 10-28-2024 Note Date & HpuqFhvySerxaszk03-22-8418 Evaluation note* Diagnosis Onset Date Resolution Status Admit Date Contact dermatitis acuteMay 2024 2:41pmRhinitis, allergicacuteMay 2024 2:41pmContact dermatitisacuteJune 2024 3:02pmHypothyroidism, unspecifiedAugust 2013acuteJune 2024 3:02pmWellness examinationacuteJune 2024 3:02pm [facility] Work Phone: 1(236) 874-934704-08-2025 NoteGeneral Surgery Office/Clinic Note Chief Complaint consultation [...] Substance Abuse, 08/30/2023 Tobac (more content not included)...[facility] HospitalComment on above: Result Comment: Electronically Signed By: PRESTON ROSALES, Anup Ernst\Date and Time Signed: 09/24/24 13:34 [id number] History of Present illness Narrative* Naty Graham, [...] nursing note reviewed. Exam conducted with a forest and conservation worker present. Vitals: Estimated body mass index is [...] of: Triston Velazquez DO documented in this encounterFulton State HospitalQahlbpkoes62-60-4853 Evaluation note* Diagnosis Onset Date Resolution Status Hypothyroidism, unspecified February 14, 2013 acuteWellness examinationacute [facility] Work Phone: Evaluation + Plan note No data available for this section General Surgery [place] Evaluation noteNo assessment information available [facility] Work Phone: Evaluation note* Diagnosis Onset Date Resolution Status Admit Date Concern about memory acuteNovember 2023 2:28pmHeadacheacuteNovember 2023 2:28pm [facility] Work Phone: Evaluation note* Diagnosis Well woman exam with routine gynecological exam Routine gynecological examination Breast cancer screening by mammogram Hot flashes documented in this encounter [facility] Discharge instructions No data available for this section General Surgery [place] Progress note No data available for this section [facility] [place] Reason for referral (narrative)No reason for referral information availableSt. Elizabeth Hospital Work Phone: Summary Purpose Family History [...] section and content) DATE CREATED AUTHOR 04/04/2021 [facility] DATE CREATED AUTHOR AUTHOR'S ORGANIZ ATION 11/25/2022 [facility] DATE CREATED AUTHOR AUTHOR'S ORGANIZ ATION 07/12/2024 [facility] DATE CREATED AUTHOR AUTHOR'S ORGANIZ ATION 04/29/2025 [facility] DATE CREATED AUTHOR AUTHOR'S ORGANIZ ATION 04/30/2025 [facility] Patient Care team informatio n [...] DateEnd Date Tess Leahy MD [address] [place] [facility] [place] [address] PCP - [facility] Medicine06/26/23Team MemberRelationshipSpecialtyStart DateEnd Date Tess Leahy MD [address] [place] [facility] [place] [address] PCP - [facility]06/26/23Team MemberRelationshipSpecialtyStart DateEnd Date Tess Leahy MD [address] [place] [facility] [place] [address] PCP - [facility]06/26/23 Team Status: Inactive Member Role Status Dates [...] DateEnd Date Tess Leahy MD PCP - [facility]06/26/23 Team Status: Inactive Member Role Status Dates [...] Care Provider Active Start: December 04, 2024 Shaian Suazo ProviderActiveStart: December 04, 2024 Team Status: Inactive Member Role Status Dates Anup Pearl MD FACS Attending Provider Active Start: January 15, 2025 End: January 15, 2025Team MemberRelationshipSpecialtyStart DateEnd Date Tess Leahy MD [facility] - [facility]06/26/23 Team Status: Inactive Member Role/Relationship Status Dates [...] BE BASED ON THE PRIMARY CLINICAL RECORDS. [employer] [facility]. provides no warranty or guarantee of the accuracy or completeness of information in this document.
--- OUTSIDE RECORDS SUMMARY | 2025-05-27 06:01 | XMS_ITS | Encounter Summary ---
Author Organization [facility] Address [address] [facility] [place] [address] Care Team Providers Care Waist Pleater Name Role Phone Tess Nunn MD Primary Care Provider [phone] Reason for Visit * ReasonCommentsMed Refill Encounter Details DateTypeDechi st. vincent hospitalCare Team (Latest Contact Info)Vyivsxoimfq01/29/2025Refill NOMYosvany ELIZABETH [address] [place] [address] Agapito Velazquez DO [address] [place], [place] [address] Mood disorder Social History Tobacco UseTypesPacks/DayYears UsedDateSmoking Tobacco: NeverAlcohol UseStandard Drinks/WeekCommentsYes0 (1 standard drink = 0.6 oz pure alcohol)Occasional alcohol useCommentsUnknownSex and Gender InformationValueDate Recorded Sex Assigned at BirthNot on fileLegal PowTnbbaz60/15/2023 6:57 PM EDTGender IdentityNot on fileSexual OrientationNot on filedocumented as of this encounter Plan of Treatment DateTypeDechi st. vincent hospitalCare Team (Latest Contact Info)Gjgltngsztz03/26/2026 2:40 PM ESTOffice Visit [facility] [address] [place] [address] Agapito Velazquez DO [address] [place], [facility] documented as of this encounter Visit Diagnoses Diagnosis Mood disorder Unspecified episodic mood disorder documented in this encounter Care Teams Team MemberRelationshipSpecialtyStart DateEnd Date Tess Nunn MD PCP - GeneralFamily Medicine06/26/23documented as of this encounter
--- OUTSIDE RECORDS SUMMARY | 2025-05-27 06:01 | XMS_ITS | Clinical Summary ---
Author Organization [facility] Healthcare Address [address] [facility] [place] [address] Care Team Providers Care Hr Advisor Name Role Phone Tess Nunn MD Primary Care Provider [phone] Allergies No known active allergies Medications MedicationSigDispense QuantityRefillsLast FilledStart DateEnd DateStatus levothyroxine (Synthroid, Levoxyl) 88 MCG tablet TAKE ONE TABLET BY MOUTH IN THE MORNING ON AN EMPTY STOMACH ONCE DAILY02/13/2023 Active pantoprazole (ProtoNix) 40 MG EC tablet TAKE 1 TABLET BY MOUTH IN THE MORNING AND 1 TABLET AT ERHZXFP5204/03/2023ctive sucralfate (Carafate) 1 g tablet Take by [...] mouth for 30 days 30 tablet 1105Active ondansetron (Zofran) 4 MG tablet Indications:NauseaTake 1 tablet (4 mg) by mouth every 6 (six) hours if needed for nausea or vomiting for up to 30 doses Take 1 tablet by mouth every 6 hours as needed for nausea. 30 tablet 1075Active venlafaxine XR (Effexor XR) 37.5 MG 24 hr capsule Indications:Mood disorderTAKE 1 CAPSULE BY MOUTH EVERY DAY *DO NOT CRUSH OR CHEW* 90 capsule 1125Active venlafaxine XR (Effexor XR) 37.5 MG 24 hr capsule Indications:Mood disorderTAKE 1 CAPSULE BY MOUTH EVERY DAY *DO NOT CRUSH OR CHEW* 30 capsule 311/5107/22/2024Discontinued Encounters DateTypeDepartmentCare QggyOlxgwcqtcet09/29/2025Refill [facility] [address] [address] Agapito Velazquez, Mood ysfaidvs04/05/2025Refill [facility] [place] [facility] [address] [place] [address] Agapito Velazquez, Mood disorderfrom Last 3 Months Family History Medical HistoryRelationNameCommentsColon cancerMaternal GrandmotherBreast cancer MotherBreast cancerPaternal GrandmotherRelationNameStatusCommentsDaughter 1Alive Daughter 2AliveMaternal GrandmotherMotherPaternal Grandmother Social History Tobacco UseTypesPacks/DayYears UsedDateSmoking Tobacco: Never Tobacco Cessation:Counseling Given: Not Answered Alcohol UseStandard Drinks/WeekCommentsYes0 (1 standard drink = 0.6 oz pure alcohol)Occasional alcohol useCommentsUnknownSex and Gender Information ValueDate RecordedSex Assigned at BirthNot on fileLegal TezZawyqs32/15/2023 6:57 PM EDTGender IdentityNot on fileSexual OrientationNot on file Last Filed Vital Signs Vital SignReadingTime TakenCommentsBlood Qvmvsjmn371/7407/10/2024 2:58 PM EST Pulse--Temperature--Respiratory Rate--Oxygen Saturation--Inhaled Oxygen Concentration--Qrdmjn03 kg (130 lb 1.9 oz)07/10/2024 2:58 PM OOXGfqusm893.6 cm (5' 4 )06/22/2022 12:00 PM ESTBody Mass Index22.34006/22/2022 12:00 PM EST Plan of Treatment DateTypeDepartmentCare Team (Latest Contact Info)Ifydnsqshux45/26/2026 2:40 PM ESTOffice Visit [facility]ETH [address] [place] [address] Agapito Velazquez, DO [address] [place] [address] [place] [address] [place] [address] Care Teams Team MemberRelationshipSpecialtyStart DateEnd Date Tess Nunn MD PCP - GeneralFamily Medicine06/26/23
--- OUTSIDE RECORDS SUMMARY | 2025-05-27 06:01 | XMS_ITS | Clinical Summary ---
Author Organization [employer] Address [id number] [place] [address] Care Team Providers Care Franchise Specialist Name Role Phone Tess Nunn MD Primary Care Provider [phone] Allergies No known active allergies Medications MedicationSigDispense [...] ProblemNoted DateDiagnosed DateChronic superficial gastritis without bleeding 11/21/20164607Bfzmmaqowvatcu72/05/2017 Family History Medical HistoryRelationNameCommentsStomach cancerMaternal AuntLung cancer Maternal GrandfatherCancerMaternal GrandmotherColon cancerMaternal Grandmother Stomach cancerMaternal GrandmotherBreast cancerMotherCancerMotherBreast cancer Paternal GrandmotherPancreatic cancerPaternal UncleRelationNameStatusComments FatherAliveMaternal AuntAliveMaternal GrandfatherDeceasedMaternal Grandmother DeceasedMotherAlivePaternal GrandfatherDeceasedPaternal GrandmotherDeceased Paternal UncleDeceasedSisterAlive Social History Tobacco UseTypesPacks/DayYears UsedDateSmoking Tobacco: FormerSmokeless Tobacco: NeverAlcohol UseStandard Drinks/WeekCommentsYes0 (1 standard drink = 0.6 oz pure alcohol)SOCIALChildcareAnswerDate XzjlfinzFmostlvdjZotaomj09/11/2019Employment AnswerDate VevcbuiiSamakipzabFhgpemq34/11/2019Purpose - LifeAnswerDate Recorded Purpose and direction in xicqGvjplww61/10/2021CommentsNoSex and Gender InformationValueDate RecordedSex Assigned at BirthNot on fileLegal SexFemale 01/20/2015 5:57 PM EDTGender IdentityNot on fileSexual OrientationNot on file Last Filed Vital Signs Vital SignReadingTime TakenCommentsBlood Xlkfzqpf984/7209 1:06 PM EDT Pulse--Hbyppistvtj35.6 ??C (97.8 ??F)03/14/2022 1:06 PM EDTRespiratory Rate-- Oxygen Saturation--Inhaled Oxygen Concentration--Qeddkw20.1 kg (130 lb 6.4 oz) 03/14/2022 1:06 PM PZSYaqffv048.8 cm (5' 4.5 )03/14/2022 1:06 PM EDTBody Mass Index22.04003/14/2022 1:06 PM EDT Plan of Treatment Health MaintenanceDue DateLast DoneCommentsDepression Otqubajec44/12/1984Tobacco Fosnyrrel96/12/1984Adult BMI Mlwoatdsj21/12/1990DTaP,Tdap and Td Vaccines (1 - Tdap)10/28/1990Pap Smear10/28/1992Zoster (Shingles) Vaccine (1 of 2)10/28/2021 Pnfyikgudvg55/17/202205/, 01/19/2011COVID-19 Vaccine (2 - season) Influenza Gcrvimi18, 04/01/2020, 03/29/2019, Additional history exists Medical Devices Not on file Procedures Procedure NamePriorityDate/TimeAssociated DiagnosisCommentsHM COLONOSCOPYRoutine 01/19/2011 from Last 3 Months or Most Recently Relevant to Health Maintenance Results * COLONOSCOPY (01/19/2011)ComponentValueRef RangeTest MethodAnalysis Time Performed AtPathologist SignatureHM ColonoscopyCOLONOSCOPYEHS EXTERNAL NON- INTERFACED REF LAB Narrative Authorizing ProviderResult TypeResult StatusScanning Provider ExternalHEALTH MAINTENANCEFinal ResultPerforming OrganizationAddressCity/State/ZIP CodePhone Number [facility] EXTERNAL NON-INTERFACED REF LAB [address] [facility] [place] [address] from Last 3 Months or Most Recently Relevant to Health Maintenance Insurance Care Teams Team MemberRelationshipSpecialtyStart DateEnd Tess Nunn MD [address] [place] [address] PCP - General07/21/17
== END 2025-05-27 05:57 | disposition home or self-care (01) ==
LOC: LAB 05:57
PROVIDERS: PCP Family Medicine; Visit Provider Surgery
DX: K25.7 Chronic gastric ulcer without hemorrhage or perforation (principal)
CPT/HCPCS: 36415